=== PATIENT | male | born 1960 | race Caucasian/White ===

== ENCOUNTER 2020-05-26 13:42 | Emergency (ER) | payer MEDICARE, MEDICAID, SELFPAY ==
--- NOTE | 2020-05-26 13:46 | ECG_ITS ---
Test Reason : STROKE SYMPTOMS Blood Pressure : / mmHG Vent. Rate : 061 BPM Atrial Rate : 061 BPM P-R Int : 130 ms QRS Dur : 088 ms QT Int : 448 ms P-R-T Axes : -22 045 158 degrees QTc Int : 450 ms Normal sinus rhythm Left ventricular hypertrophy with repolarization abnormality Abnormal ECG When compared with ECG of 16-FEB-2014 20:47, T wave inversion more evident in Anterior leads Referred By: Landry Rogers Electronically Signed By:SUKI GORDON MD
--- NOTE | 2020-05-26 13:46 | CT_ITS ---
EXAMINATION: CT HEAD WITHOUT CONTRAST (STROKE PROTOCOL) CLINICAL INFORMATION: Stroke protocol. Slurred speech and dizziness COMPARISON: None TECHNIQUE: Contiguous axial imaging was performed from the skull base to vertex without intravenous administration of contrast. This CT examination was performed using dose optimization techniques as appropriate, variously including the following: *Automated exposure control *Adjustment of mA and/or kV according to patient size (this includes techniques or standardized protocols for targeted exams where dose is matched to indication/reason for exam; i.e. extremities or head) *Use of iterative reconstruction technique DLP: 864 mGy-cm FINDINGS: There is no intracranial hemorrhage, hematoma, or extra-axial fluid collection. The ventricles are normal in size. There is no hydrocephalus, edema, or mass effect. The alvarado-white matter differentiation appears symmetric. There is no acute infarct or mass lesion. Normal parenchymal attenuation. The calvarium appears intact. There is no pneumocephalus or orbital emphysema. Mild ethmoid mucosal thickening. There are no air-fluid levels. 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 CT/CT head for stroke IMPRESSION: No acute intracranial pathology. Consider further imaging as clinically indicated. This critical result was discussed with Landry Rogers MD by telephone at 05/26/2020 2:00 PM and it was ascertained that the content and urgency of the report was understood at the time of direct communication.
--- NOTE | 2020-05-26 13:50 | ED_ITS ---
HPI - Neuro Symptoms/Deficit General Chief Complaint: Stroke Stated Complaint: slurred speech,weakness Time Seen by Provider: 05/26/20 13:45 Source: patient Mode of arrival: EMS Limitations: no limitations History of Present Illness HPI Narrative: intermittent slurred speech for 45 minutes. Patient states that he had stuttering symptoms for past few days now more permanent. States that he has had similar dizziness and slurred speech over the past 20 years. Related Data Allergies Allergy/AdvReac Type Severity Reaction Status Date / Time No Known Allergies Allergy Unverified 04/02/20 16:01 [No Known Allergies*] Review of Systems Constitutional: Constitutional: Reports no additional constitutional complaints Eyes: Eyes: Reports no additional eye complaints ENT: Reports dizziness Cardiovascular: Cardiovascular: Reports no additional cardiovascular complaints Respiratory: Respiratory: Reports as per HPI Gastrointestinal: Gastrointestinal: Reports no additional gastrointestinal complaints Musculoskeletal: Musculoskeletal: Reports no additional musculoskeletal compl aints Integumentary/Breasts: Skin/Breast: Denies rash Neurologic: Reports system reviewed and no additional complaints, except as documented, Reports dizziness and Denies Sensory deficit (Neuro) Psychiatric: Psychiatric: Denies anxiety [facility] Social History Social History Alcohol intake: never Smoking Status: Current every day smoker Use of substances other than those prescribed or required for medical reasons: No Advance Directives: No Advance Directives Information Provided: No Physical Exam Vital Signs: Vital Signs: Last Vital Signs Temp 97.9 F 05/26/20 13:57 Pulse 68 05/26/20 13:57 Resp 17 05/26/20 13:57 BP 142/77 H 05/26/20 13:57 Pulse Ox 94 05/26/20 13:57 Body Mass Index 34.7 Const: Nutritional Appearance: overweight Orientation/consciousness: oriented to person and patient oriented x3 Limitations: no limitations HENMT: Head: Yes normal to inspection Ears: external ears normal General nose exam: Normal external nose present Mouth: Normal oral and palatal mucosa present and oropharynx normal Throat: Yes posterior oropharynx normal Eyes: General: appearance normal, both eyes and all related structures Neck: Other: supple Neck: Yes normal visual inspection Chest: Chest palpation & inspection: normal inspection of the chest Resp: Auscultation: clear to auscultation bilaterally Cardio: Jugular venous distension: no JVD Rate: regular rate Rhythm: regular rhythm Heart sounds: S1 normal heart sound present and S2 normal heart sound present GI: Inspection: Yes normal to inspection Palpation (GI): Soft to palpation, nontender and No hepatosplenomegaly present Auscultation: normal bowel sounds : General: Yes no CVA tenderness Back/Spine/Pelvis: Back: no CVA tenderness Skin: General skin exam: no rashes or lesions noted Neuro: Other: patient with bilateral nystagmus General: oriented to person and patient oriented x3 Cranial nerves: Yes CN's II-XII intact bilaterally Motor exam (neuro): 5/5 motor strength present throughout Sensory Exam: No Sensory deficit (Neuro) Extrem: General: Yes normal to inspection Psych: Appearance: grossly normal Course Course Course Narrative: radiology reading is negative Reevaluation(s) Reevaluation #1: Discussed with Dr St who states that he saw this patient in 2011 with the same symptoms, He states that this is not a stroke Reevaluation #2: patient feeling better will dc home Time: 15:48 MDM - Neuro Symptoms/Deficit MDM Narrative Medical decision making narrative: most likely this is seizure not stroke as patient can get these many times a day Differential Diagnosis Differential diagnosis: Likely convulsions, cerebrovascular accident and transient cerebral ischemia Lab Data Result diagrams: 05/26/20 14:18 05/26/20 14:18 Labs: Lab Results 05/26/20 05/26/20 05/26/20 Range/Units 13:55 13:55 14:18 WBC 9.7 (4.8-10.8) X10*3/uL RBC 4.95 (4.60-5.80) X10*6/uL Hgb 15.6 (14.0-18.0) g/dl Hct 46.4 (42-52) % MCV 93.7 (80-98) fL MCH 31.5 (27.0-33.0) pg MCHC 33.6 (31.0-36.0) g/dl RDW 13.2 (11.0-16.0) % Plt Count 206 (160-400) X10*3/uL MPV 11.5 (9.4-12.4) fL Immature Gran % (Auto) 0.6 H (0.0-0.4) % Neut % (Auto) 64.7 (45-73) % Lymph % (Auto) 23.1 (20-40) % [place] % (Auto) 7.2 (2-11) % Eos % (Auto) 3.6 (0-4) % Baso % (Auto) 0.8 (0-2) % Lymph # (Auto) 2.3 (1.2-4.9) X10*3/uL [place] # (Auto) 0.7 (0.1-1.2) X10*3/uL Eos # (Auto) 0.4 (0.0-0.4) X10*3/uL Baso # (Auto) 0.1 (0.0-0.2) X10*3/uL Abs Immat Gran (auto) 0.06 H (0.00-0.03) X10*3/uL Absolute Neuts (auto) 6.3 (2.0-8.3) X10*3/uL Absolute Nucleated RBC 0.000 (0.0-0.012) X10*3/uL Nucleated RBC % (auto) 0.0 (0.0-0.2) /100WBC PT (10.8-13.0) SEC Whole Blood PT 11.5 (11.1-13.5) sec INR (0.9-1.1) Whole Blood INR 1.0 (0.9-1.1) APTT (24.1-38.0) SEC Sodium (135-145) mmol/L Potassium (3.3-5.1) mmol/l Chloride (96-108) mmol/L Carbon Dioxide (22-29) mmol/L Anion Gap (12-20) BUN (9-16) mg/dL Creatinine (0.5-1.4) mg/dL Estim Creat Clear Calc Estimated GFR POC Glucose 120 H (60-115) mg/dL Random Glucose (60-115) mg/dL Calcium (8.4-10.2) mg/dL Total Creatine Kinase (38-174) U/L Troponin I High Sens (<3.5-35.0) ng/L 05/26/20 05/26/20 05/26/20 Range/Units 14:18 14:18 14:18 WBC (4.8-10.8) X10*3/uL RBC (4.60-5.80) X10*6/uL Hgb (14.0-18.0) g/dl Hct (42-52) % MCV (80-98) fL MCH (27.0-33.0) pg MCHC (31.0-36.0) g/dl RDW (11.0-16.0) % Plt Count (160-400) X10*3/uL MPV (9.4-12.4) fL Immature Gran % (Auto) (0.0-0.4) % Neut % (Auto) (45-73) % Lymph % (Auto) (20-40) % [place] % (Auto) (2-11) % Eos % (Auto) (0-4) % Baso % (Auto) (0-2) % Lymph # (Auto) (1.2-4.9) X10*3/uL [place] # (Auto) (0.1-1.2) X10*3/uL Eos # (Auto) (0.0-0.4) X10*3/uL Baso # (Auto) (0.0-0.2) X10*3/uL Abs Immat Gran (auto) (0.00-0.03) X10*3/uL Absolute Neuts (auto) (2.0-8.3) X10*3/uL Absolute Nucleated RBC (0.0-0.012) X10*3/uL Nucleated RBC % (auto) (0.0-0.2) /100WBC PT 10.7 L (10.8-13.0) SEC Whole Blood PT (11.1-13.5) sec INR 0.9 (0.9-1.1) Whole Blood INR (0.9-1.1) APTT 34.4 (24.1-38.0) SEC Sodium 142 (135-145) mmol/L Potassium 4.0 (3.3-5.1) mmol/l Chloride 103 (96-108) mmol/L Carbon Dioxide 31 H (22-29) mmol/L Anion Gap 12 (12-20) BUN 16 (9-16) mg/dL Creatinine 1.00 (0.5-1.4) mg/dL Estim Creat Clear Calc 93.2 Estimated GFR > 60 POC Glucose (60-115) mg/dL Random Glucose 105 (60-115) mg/dL Calcium 9.2 (8.4-10.2) mg/dL Total Creatine Kinase 253 H (38-174) U/L Troponin I High Sens 14.7 (<3.5-35.0) ng/L ECG Data Attestation: I personally reviewed and interpreted this ECG as follows: Interpretation: sinus rate 60 LVH, twave changes with flipped Ts consistent with LVH NIH Stroke Scale Internal: Initial- Upon Arrival Time: 13:53 Level of Consciousness: Alert Level of Consciousness Questions: Answers both questions correctly Level of Consciousness Commands: Performs both tasks correctly Best Gaze: Normal Visual: No visual loss Facial Palsy: Normal Motor Arm (Right): No drift Motor Arm (Left): No drift Motor Leg (Right): No drift Motor Leg (Left): No drift Limb Ataxia: Absent Sensory: Normal Best Language: No aphasia Dysarthia: Mild to moderate dysarthria Extinction and Inattention: No abnormality Score: 1 Discharge Plan Discharge Clinical Impression: Convulsions Qualifiers: Convulsion type: unspecified Qualified Code(s): R56.9 - Unspecified convulsions Patient Disposition: Home, Self-Care Instructions: Epilepsy (ED) Referrals: [facility] [Primary Care Provider] - [address] MD [Physician] - 2 days
[2020-05-26 13:57] VITALS: BP 142/77; BP 150/80; PULSE 68; RESP 17; TEMP 36.6; O2SAT 94; BMI 34.7
[2020-05-26 14:01] LABS: Prothrombin Time Whole Bld POC 11.5 sec (11.1-13.5)
[2020-05-26 14:02] LABS: Glucose, Whole Blood 120 mg/dL (60-115)
[2020-05-26 14:27] LABS: Basophils Absolute Auto 0.1 X10*3/uL (0.0-0.2); Basophils Percent Auto 0.8 % (0-2); Eosinophils Absolute Auto 0.4 X10*3/uL (0.0-0.4); Eosinophils Percent Auto 3.6 % (0-4); Hematocrit 46.4 % (42-52); Hemoglobin 15.6 g/dl (14.0-18.0); Imm Gran Abs Auto 0.06 X10*3/uL (0.00-0.03); Imm Gran Pct Auto 0.6 % (0.0-0.4); Lymphocytes Absolute Auto 2.3 X10*3/uL (1.2-4.9); Lymphocytes Percent Auto 23.1 % (20-40); Mean Corpuscular HGB Conc 33.6 g/dl (31.0-36.0); Mean Corpuscular Hemoglobin 31.5 pg (27.0-33.0); Mean Corpuscular Volume 93.7 fL (80-98); Mean Platelet Volume 11.5 fL (9.4-12.4); Monocytes Absolute Auto 0.7 X10*3/uL (0.1-1.2); Monocytes Percent Auto 7.2 % (2-11); Neutrophils Absolute Auto 6.3 X10*3/uL (2.0-8.3); Neutrophils Percent Auto 64.7 % (45-73); Platelet Count 206 X10*3/uL (160-400); Red Blood Count 4.95 X10*6/uL (4.60-5.80); Red Cell Distribution Width 13.2 % (11.0-16.0); White Blood Count 9.7 X10*3/uL (4.8-10.8)
[2020-05-26 14:29] LABS: MANUAL DIFF FLAG NO
[2020-05-26 14:34] LABS: INTERNATIONAL NORM RATIO 0.9 (0.9-1.1); Prothrombin Time 10.7 SEC (10.8-13.0)
[2020-05-26 14:37] LABS: Partial Thromboplastin Time 34.4 SEC (24.1-38.0)
[2020-05-26 14:38] LABS: Stroke Lab Use COMPLETE
[2020-05-26 14:49] LABS: Anion Gap 12 (12-20); Blood Urea Nitrogen 16 mg/dL (9-16); Calcium 9.2 mg/dL (8.4-10.2); Carbon Dioxide 31 mmol/L (22-29); Chloride 103 mmol/L (96-108); Creatinine Clr Calc Pharmacy 93.2; Estimated Glomerular Filt Rate > 60; Glucose Random 105 mg/dL (60-115); Sodium 142 mmol/L (135-145)
[2020-05-26 14:55] LABS: Troponin-I High Sensitivity 14.7 ng/L (<3.5-35.0)
[2020-05-26 16:08] VITALS: BP 124/68; PULSE 67; RESP 16; O2SAT 94
== END 2020-05-26 16:24 | disposition home or self-care (01) ==
PROVIDERS: Emergency Provider Emergency Medicine
DX: R56.9 Unspecified convulsions (principal); R42 Dizziness and giddiness; R29.701 NIHSS score 1; F17.200 Nicotine dependence, unspecified, uncomplicated; Z71.6 Tobacco abuse counseling
CPT/HCPCS: 36415; 70450; 80048; 82550; 82947; 84484; 85025; 85610; 85730; 93005; 99284

== ENCOUNTER → 2020-08-13 08:29 | Outpatient (BNVA) | payer MEDICARE, MEDICAID, SELFPAY | PROVIDERS: Visit Provider Physician Assistant | DX: Z13.89 Encounter for screening for other disorder (principal) | CPT/HCPCS: Q3014 ==

== ENCOUNTER → 2020-09-02 14:57 | Outpatient (BNVA) | payer MEDICARE, MEDICAID, SELFPAY | PROVIDERS: PCP Internal Medicine; Visit Provider Internal Medicine | DX: J44.9 Chronic obstructive pulmonary disease, unspecified (principal); G47.33 Obstructive sleep apnea (adult) (pediatric); F17.200 Nicotine dependence, unspecified, uncomplicated; Z99.89 Dependence on other enabling machines and devices | CPT/HCPCS: 99202 ==

== ENCOUNTER 2020-09-23 09:03 | Outpatient (REF) | payer MEDICARE, MEDICAID, SELFPAY ==
--- NOTE | ~2020-09-23 | CT_ITS ---
EXAMINATION: CT CHEST SCREENING CLINICAL INFORMATION: No cord independence COMPARISON: CT chest 01/07/2010 TECHNIQUE: Multidetector volumetric CT imaging of the chest is performed without contrast using low dose technique. Additional 2D coronal and sagittal reformatted images and axial 3D maximum intensity projection (MIP) images are generated on the CT workstation. This CT examination was performed using dose optimization techniques as appropriate, variously including the following: *Automated exposure control *Adjustment of mA and/or kV according to patient size (this includes techniques or standardized protocols for targeted exams where dose is matched to indication/reason for exam; i.e. extremities or head) *Use of iterative reconstruction technique DLP: 74 mGy-cm FINDINGS: LUNGS: There is centrilobular emphysematous changes of both lungs. There is a 7 mm nodule right middle lobe on axial image 271/6, 6 mm nodule likely lymph node in the right minor fissure axial image 294/6. No additional nodules seen. MEDIASTINUM: The thyroid lobes are symmetrical and likely enlarged and slightly heterogenous. The central trachea is mildly narrowed in this region of thyroid enlargement. But otherwise the trachea and the bronchi widely patent. Heart size and the great vessels are normal caliber. No pericardial effusion seen. PLEURA: There is no pleural effusion. No pleural mass or thickening. AXILLA: No lymphadenopathy. UPPER ABDOMEN: Visualized liver, spleen, pancreas and adrenal glands unremarkable. The gallbladder has been surgically removed. OSSEOUS STRUCTURES: No lytic or sclerotic process seen. There is a small posterior epidural electrode positioned in the mid thoracic spine. CT/CT lung screening IMPRESSION: Stable pulmonary nodules. The fissural nodule is likely a lymph node. No new nodules seen since 2009. Emphysema without acute process ASSESSMENT: Lung-RADS category 2: Benign RECOMMENDATION: Low dose annual CT.
== END 2020-09-23 09:04 | disposition home or self-care (01) ==
LOC: HO.CT 09:03
PROVIDERS: Visit Provider Physician Assistant Medical
DX: Z12.2 Encounter for screening for malignant neoplasm of respiratory organs (principal); F17.210 Nicotine dependence, cigarettes, uncomplicated
CPT/HCPCS: 71271

== ENCOUNTER 2020-10-01 14:50 | Outpatient (REF) | payer MEDICARE, MEDICAID, SELFPAY ==
--- NOTE | 2020-10-01 17:41 | PFT_ITS ---
Forced vital capacity is normal. FEV1 slightly decreased. [id number] is markedly decreased and MVV is slightly decreased. Post bronchodilator therapy, there is a slight improvement in FEV1 and [id number]. Total lung capacity normal. Residual volume moderately increased. Diffusion capacity moderately decreased. CONCLUSION: Obstructive airway disorder, moderately severe. Very minimal improvement after bronchodilator therapy is noted. MD PHIL Berger/MODL / [id number]
== END 2020-10-01 14:51 | disposition home or self-care (01) ==
LOC: HO.RESP 14:50
PROVIDERS: Visit Provider Internal Medicine
DX: J44.9 Chronic obstructive pulmonary disease, unspecified (principal); F17.200 Nicotine dependence, unspecified, uncomplicated; G47.33 Obstructive sleep apnea (adult) (pediatric); Z79.899 Other long term (current) drug therapy; Z99.89 Dependence on other enabling machines and devices
CPT/HCPCS: 94060; 94727; 94729; 99212

== ENCOUNTER 2021-01-02 13:17 | Emergency (ER) | payer MEDICARE, MEDICAID, SELFPAY | END 2021-01-02 14:03 | disposition left against medical advice (07) | PROVIDERS: Emergency Provider Emergency Medicine; PCP Internal Medicine | DX: R79.89 Other specified abnormal findings of blood chemistry (principal) | CPT/HCPCS: 99281 ==

== ENCOUNTER 2021-01-03 03:13 | Emergency (ER) | payer MEDICARE, MEDICAID, SELFPAY ==
--- NOTE | 2021-01-03 | ECG_ITS ---
Test Reason : LOW POTTASIUM Blood Pressure : / mmHG Vent. Rate : 064 BPM Atrial Rate : 064 BPM P-R Int : 140 ms QRS Dur : 096 ms QT Int : 450 ms P-R-T Axes : 000 050 170 degrees QTc Int : 464 ms Normal sinus rhythm Left ventricular hypertrophy with repolarization abnormality Abnormal ECG When compared with ECG of 26-MAY-2020 13:57, No significant change was found Referred By: Nora Perez Electronically Signed By:AUDELIA ABREU
[2021-01-03 03:33] VITALS: BP 142/75; PULSE 74; RESP 16; TEMP 36.7; O2SAT 95; BMI 31.4
--- NOTE | 2021-01-03 04:16 | ED_ITS ---
HPI - General Adult General Chief complaint: Recheck/Abnormal Lab/Rx Stated complaint: bruised kidney, low potassium Time Seen by Provider: 01/03/21 04:16 Source: patient Mode of arrival: ambulatory History of Present Illness HPI narrative: 60-year-old male with history of diabetes, hypertension, SUNNY and presents with a month of 2-3 episodes of nonbloody diarrhea/fatigue/dizziness/diaphoresis a day but denies any nausea, vomiting, fevers, chills, shortness of breath, chest pain/palpitations. Patient states that he was evaluated by his primary care provider and was called and informed that his lab work showed his potassium was low and that he had a ?bruised kidney?. Related Data Home Medications Medication Instructions Recorded Confirmed aspirin 81 mg tablet,delayed 81 mg PO DAILY 09/02/20 release chlorthalidone 50 mg tablet 50 mg PO DAILY 09/02/20 ergocalciferol (vitamin D2) 1,250 1,250 mcg PO QWEEK 09/02/20 mcg (50,000 unit) capsule fluticasone propionate 220 0 mcg INHALATION 09/02/20 mcg/actuation HFA aerosol inhaler gabapentin 400 mg capsule 400 mg PO TID 09/02/20 hydrochlorothiazide 25 mg tablet 25 mg PO DAILY 09/02/20 ipratropium bromide 17 2 puff PO QID 09/02/20 mcg/actuation HFA aerosol inhaler meloxicam 7.5 mg tablet 7.5 mg PO BID 09/02/20 oxycodone 80 mg tablet,crush 80 mg PO TID 09/02/20 resistant,extended release 12 hr simvastatin 40 mg tablet 40 mg PO BEDTIME 09/02/20 tamsulosin 0.4 mg capsule 0.4 mg PO DAILY 09/02/20 Previous Rx's Medication Instructions Recorded albuterol sulfate 90 mcg/actuation 2 puff INHALATION Q4-6H PRN 30 09/02/20 aerosol inhaler Days #8.5 g nicotine 14 mg/24 hr daily 1 patch TRANSDERMAL DAILY 28 Days 09/02/20 transdermal patch #28 ea fluticasone 250 mcg-salmeterol 50 1 ea PO Q12H #60 cap 11/25/20 mcg/dose blistr powdr for inhalation Allergies Allergy/AdvReac Type Severity Reaction Status Date / Time varenicline [From Lifetime Oy Lifetime Studiostix] AdvReac Intermediate Nausea Verified 09/11/20 13:56 Review of Systems Review of Systems: Pertinent positives and negatives as stated in HPI 10 point review of systems is otherwise negative. [facility] Past Medical History Source: nursing notes reviewed Medical History SUNNY on CPAP Pancreas anomaly, congenital Smoker Umbilical hernia Surgical History History of pancreatic surgery Hx of cholecystectomy Hx of tonsillectomy S/P insertion of spinal cord stimulator Family History Family History Father Cardiac abnormality Mother No problems noted. Social History Social History Household Members: Spouse Alcohol intake: former Cigarette Packs Per Day: 0.5 Cigarettes Per Day: 10 Years Smoked: 50 years Smoked in Last 30 Days: No Advance Directives: No Advance Directives Information Provided: No Current occupational status: disabled Physical Exam Vital Signs: Vital Signs: Last Vital Signs Temp 98.1 F 01/03/21 03:33 Pulse 74 01/03/21 03:33 Resp 16 01/03/21 03:33 BP 142/75 H 01/03/21 03:33 Pulse Ox 95 01/03/21 03:33 Body Mass Index 31.4 VITAL SIGNS: Reviewed. GENERAL: Well developed, well nourished, in no acute distress. HEAD: Normocephalic/atraumatic EYES: PERRLA, EOMI EARS: Ext canals without abnormality OROPHARYNX: no oral lesions noted, posterior pharynx clear NECK: Supple, no adenopathy LUNGS: Normal breath sounds. No adventitious sounds or accessory muscle use. SpO2<95> CARDIOVASCULAR: Regular rate and rhythm without noted murmurs, no JVD or lower extremity edema. ABDOMEN: Obese, Soft, non-tender, non-distended with bowel sounds. SKIN: Inspection of the skin reveals no rashes, ulcerations, jaundice, pallor, or petechiae. NEUROLOGIC: Alert and oriented x 4. Strength and sensation to light touch were grossly intact x 4. Course Course Course Narrative: [age] male with history and clinical presentation of being referred by his primary care provider for potassium levels. On review of all investigations there is a noted mild hypo kalemia without EKG changes or complaints of chest pain/palpitations or muscular cramping. The potassium was repleted with 60 mEq of potassium chloride and the BUN is noted to be elevated and patient received 1 L of IV fluids. Otherwise, the noted leukocytosis appears to be reactive in nature as patient has a benign abdominal exam in the urinalysis is negative. Normal limits and there are no findings to better explain patient's complaints of diaphoresis or diarrhea that he has been experiencing. All results were shared with him and he was discharged home in stable condition to follow-up with his PCP on Monday morning. Medical Decision Making Lab Data Result diagrams: 01/03/21 04:13 01/03/21 04:13 Labs: Lab Results 01/03/21 01/03/21 01/03/21 Range/Units 04:13 04:13 04:15 WBC 12.8 H (4.8-10.8) X10*3/uL RBC 4.83 (4.60-5.80) X10*6/uL Hgb 14.8 (14.0-18.0) g/dl Hct 43.6 (42-52) % MCV 90.3 (80-98) fL MCH 30.6 (27.0-33.0) pg MCHC 33.9 (31.0-36.0) g/dl RDW 13.0 (11.0-16.0) % Plt Count 183 (160-400) X10*3/uL MPV 10.6 (9.4-12.4) fL Immature Gran % (Auto) 0.7 H (0.0-0.4) % Neut % (Auto) 65.0 (45-73) % Lymph % (Auto) 23.7 (20-40) % [place] % (Auto) 7.7 (2-11) % Eos % (Auto) 2.3 (0-4) % Baso % (Auto) 0.6 (0-2) % Lymph # (Auto) 3.0 (1.2-4.9) X10*3/uL [place] # (Auto) 1.0 (0.1-1.2) X10*3/uL Eos # (Auto) 0.3 (0.0-0.4) X10*3/uL Baso # (Auto) 0.1 (0.0-0.2) X10*3/uL Abs Immat Gran (auto) 0.09 H (0.00-0.03) X10*3/uL Absolute Neuts (auto) 8.3 (2.0-8.3) X10*3/uL Absolute Nucleated RBC 0.000 (0.0-0.012) X10*3/uL Nucleated RBC % (auto) 0.0 (0.0-0.2) /100WBC Sodium 142 (135-145) mmol/L Potassium 3.0 L (3.3-5.1) mmol/L Chloride 98 (96-108) mmol/L Carbon Dioxide 33 H (22-29) mmol/L Anion Gap 14 (12-20) BUN 27 H D (9-16) mg/dL Creatinine 1.26 (0.5-1.4) mg/dL Estim Creat Clear Calc 71.8 Estimated GFR 58 POC Glucose 120 H (60-115) mg/dL Random Glucose 116 H (60-115) mg/dL Calcium 10.1 D (8.4-10.2) mg/dL Magnesium 1.8 (1.6-2.6) mg/dL TSH 0.57 (0.32-4.0) uIU/mL Urine Color Urine Appearance Urine pH (5.0-8.0) Ur Specific [place] (1.005-1.025) Urine Protein (NEG-TRACE) MG/DL Urine Glucose (UA) (NEG) MG/DL Urine Ketones (NEG) MG/DL Urine Blood (NEG) Urine Nitrite (NEG) Ur Leukocyte Esterase (NEG) 01/03/21 Range/Units 05:19 WBC (4.8-10.8) X10*3/uL RBC (4.60-5.80) X10*6/uL Hgb (14.0-18.0) g/dl Hct (42-52) % MCV (80-98) fL MCH (27.0-33.0) pg MCHC (31.0-36.0) g/dl RDW (11.0-16.0) % Plt Count (160-400) X10*3/uL MPV (9.4-12.4) fL Immature Gran % (Auto) (0.0-0.4) % Neut % (Auto) (45-73) % Lymph % (Auto) (20-40) % [place] % (Auto) (2-11) % Eos % (Auto) (0-4) % Baso % (Auto) (0-2) % Lymph # (Auto) (1.2-4.9) X10*3/uL [place] # (Auto) (0.1-1.2) X10*3/uL Eos # (Auto) (0.0-0.4) X10*3/uL Baso # (Auto) (0.0-0.2) X10*3/uL Abs Immat Gran (auto) (0.00-0.03) X10*3/uL Absolute Neuts (auto) (2.0-8.3) X10*3/uL Absolute Nucleated RBC (0.0-0.012) X10*3/uL Nucleated RBC % (auto) (0.0-0.2) /100WBC Sodium (135-145) mmol/L Potassium (3.3-5.1) mmol/L Chloride (96-108) mmol/L Carbon Dioxide (22-29) mmol/L Anion Gap (12-20) BUN (9-16) mg/dL Creatinine (0.5-1.4) mg/dL Estim Creat Clear Calc Estimated GFR POC Glucose (60-115) mg/dL Random Glucose (60-115) mg/dL Calcium (8.4-10.2) mg/dL Magnesium (1.6-2.6) mg/dL TSH (0.32-4.0) uIU/mL Urine Color YELLOW Urine Appearance CLEAR Urine pH 6.0 (5.0-8.0) Ur Specific [place] 1.025 (1.005-1.025) Urine Protein NEG (NEG-TRACE) MG/DL Urine Glucose (UA) NEG (NEG) MG/DL Urine Ketones NEG (NEG) MG/DL Urine Blood NEG (NEG) Urine Nitrite NEG (NEG) Ur Leukocyte Esterase NEG (NEG) ECG Data Attestation: I personally reviewed and interpreted this ECG as follows: Prior ECG tracings: available for review (05/26/2020 no acute changes on comparison) Interpretation: Normal sinus rhythm, HR-64, no evidence of acute ischemia, IA/QRS/QTC ears within normal limits. Discharge Plan Discharge Clinical Impression: Hypokalemia, Dehydration, mild Patient Disposition: Home, Self-Care Instructions: Hypokalemia (ED), Dehydration (ED) Additional Instructions: 1. Resume all home medications as prescribed. 2. Please follow-up with your primary care provider on Monday morning to further discuss workup of your diarrhea. Return to the ER for acute worsening of symptoms. Prescriptions: No Action fluticasone propion-salmeterol [Wixela Inhub] 250-50 mcg/dose blister with device 1 ea PO Q12H Qty: 60 RF: 2 Atrovent HFA 17 mcg/actuation HFA aerosol inhaler 2 puff PO QID RF: 0 Flovent HFA 220 mcg/actuation HFA aerosol inhaler 0 mcg inhalation RF: 0 meloxicam 7.5 mg tablet 7.5 mg PO BID RF: 0 chlorthalidone 50 mg tablet 50 mg PO DAILY RF: 0 tamsulosin 0.4 mg capsule 0.4 mg PO DAILY RF: 0 simvastatin 40 mg tablet 40 mg PO BEDTIME RF: 0 ergocalciferol (vitamin D2) 1,250 mcg (50,000 unit) capsule 1,250 mcg PO QWEEK RF: 0 gabapentin 400 mg capsule 400 mg PO TID RF: 0 aspirin 81 mg tablet,delayed release (DR/EC) 81 mg PO DAILY RF: 0 hydrochlorothiazide 25 mg tablet 25 mg PO DAILY RF: 0 oxycodone 80 mg tablet,oral only,ext.rel.12 hr 80 mg PO TID RF: 0 nicotine 14 mg/24 hr patch 24 hour 1 patch transdermal DAILY 28 Days Qty: 28 RF: 2 albuterol sulfate [ProAir HFA] 90 mcg/actuation HFA aerosol inhaler 2 puff inhalation Q4-6H PRN (Reason: shortness of breath or wheezing) 30 Days Qty: 8.5 RF: 2 Referrals: Ciara Garcia MD [Primary Care Provider] - 2 days
[2021-01-03 04:17] LABS: MANUAL DIFF FLAG NO
[2021-01-03 04:18] LABS: Glucose, Whole Blood 120 mg/dL (60-115)
[2021-01-03 04:18] LABS: Basophils Absolute Auto 0.1 X10*3/uL (0.0-0.2); Basophils Percent Auto 0.6 % (0-2); Eosinophils Absolute Auto 0.3 X10*3/uL (0.0-0.4); Eosinophils Percent Auto 2.3 % (0-4); Hematocrit 43.6 % (42-52); Hemoglobin 14.8 g/dl (14.0-18.0); Imm Gran Abs Auto 0.09 X10*3/uL (0.00-0.03); Imm Gran Pct Auto 0.7 % (0.0-0.4); Lymphocytes Percent Auto 23.7 % (20-40); Mean Corpuscular HGB Conc 33.9 g/dl (31.0-36.0); Mean Corpuscular Hemoglobin 30.6 pg (27.0-33.0); Mean Corpuscular Volume 90.3 fL (80-98); Mean Platelet Volume 10.6 fL (9.4-12.4); Monocytes Percent Auto 7.7 % (2-11); Neutrophils Absolute Auto 8.3 X10*3/uL (2.0-8.3); Platelet Count 183 X10*3/uL (160-400); Red Blood Count 4.83 X10*6/uL (4.60-5.80); White Blood Count 12.8 X10*3/uL (4.8-10.8)
[2021-01-03 04:41] LABS: Anion Gap 14 (12-20); Blood Urea Nitrogen 27 mg/dL (9-16); Calcium 10.1 mg/dL (8.4-10.2); Chloride 98 mmol/L (96-108); Creatinine Clr Calc Pharmacy 71.8; Estimated Glomerular Filt Rate 58; Glucose Random 116 mg/dL (60-115); Magnesium 1.8 mg/dL (1.6-2.6); Sodium 142 mmol/L (135-145)
[2021-01-03 04:53] LABS: Carbon Dioxide 33 mmol/L (22-29)
[2021-01-03 05:02] LABS: Thyroid Stimulating Hormone 0.57 uIU/mL (0.32-4.0)
[2021-01-03] MEDS: Potassium Chloride ER 20 MEQ TAB.ER.PRT 60 MEQ PO (05:12)
[2021-01-03] MEDS: 0.9 % Sodium Chloride 1,000 ML 999 ML IV (05:16)
[2021-01-03 05:24] LABS: Glucose Urine UA NEG (NEG); Leukocyte Esterase Urine NEG (NEG); Nitrite Urine NEG (NEG); Specific Gravity - Urine 1.025 (1.005-1.025); Urine Blood NEG (NEG); Urine Ketones NEG (NEG); Urine Protein NEG (NEG-TRACE)
[2021-01-03 05:29] LABS: Appearance Urine CLEAR; Color Urine YELLOW
== END 2021-01-03 06:40 | disposition home or self-care (01) ==
PROVIDERS: Emergency Provider Student in an Organized Health Care Education/Training Program; PCP Internal Medicine
DX: E87.6 Hypokalemia (principal); E86.0 Dehydration; E11.9 Type 2 diabetes mellitus without complications; I10 Essential (primary) hypertension; G47.33 Obstructive sleep apnea (adult) (pediatric); Z79.899 Other long term (current) drug therapy
CPT/HCPCS: 36415; 80048; 81003; 82947; 83735; 84443; 85025; 93005; 96360; 99284

== ENCOUNTER 2021-01-19 11:00 | Outpatient (REF) | payer MEDICARE, MEDICAID, SELFPAY ==
--- NOTE | ~2021-01-19 | CT_ITS ---
EXAMINATION: CT SOFT TISSUE NECK WITH CONTRAST CLINICAL INFORMATION: Localized enlarged lymph node. COMPARISON: None TECHNIQUE: Following the intravenous administration of 60 mL of Omnipaque 350 contrast, helical imaging was performed in the axial plane with generation of coronal and sagittal reformatted images. This CT examination was performed using dose optimization techniques as appropriate, variously including the following: *Automated exposure control *Adjustment of mA and/or kV according to patient size (this includes techniques or standardized protocols for targeted exams where dose is matched to indication/reason for exam; i.e. extremities or head) *Use of iterative reconstruction technique DLP: 251 mGy-cm FINDINGS: No pathologically enlarged cervical lymph nodes are identified. No contour abnormality or pathologic enhancement seen within the oral cavity, pharyngeal mucosal space, or larynx. There is a heterogeneous 2.5 cm nodule posteriorly in the left thyroid lobe. The imaged mediastinum appears normal. There are some secretions adherent to the ty of the trachea at the thoracic inlet. The carotid sheath vasculature opacifies normally with mild atherosclerotic wall calcifications at the bifurcation on the right side. The parotid and submandibular glands are normal. Moderate to severe multilevel cervical spondylosis visible. The paranasal sinuses and mastoid air cells are well aerated. No acute osseous abnormality is seen. Moderate emphysematous changes visible in the lungs, which are otherwise clear. The imaged portions of the brain demonstrate no acute abnormality. CT/CT soft tissue neck w con IMPRESSION: No suspicious soft tissue enhancement or cervical adenopathy. No acute findings. Heterogeneous 2.5 cm left thyroid lobe nodule could be assessed with follow-up sonography. Moderate to severe multilevel cervical spondylosis.
[2021-01-19] MEDS: iohexoL 350 MG/ML 100 ML INFUS..BTL 60 ML IV (11:36)
== END 2021-01-19 11:01 | disposition home or self-care (01) ==
LOC: HO.CT 11:00
PROVIDERS: Visit Provider Family Medicine
DX: R59.0 Localized enlarged lymph nodes (principal)
CPT/HCPCS: 70491; Q9967

== ENCOUNTER → 2021-02-04 10:24 | Outpatient (BNVA) | payer MEDICARE, MEDICAID, SELFPAY | PROVIDERS: PCP Internal Medicine; Visit Provider Internal Medicine | DX: J44.9 Chronic obstructive pulmonary disease, unspecified (principal); G47.33 Obstructive sleep apnea (adult) (pediatric); F17.200 Nicotine dependence, unspecified, uncomplicated; Z99.89 Dependence on other enabling machines and devices; Z79.899 Other long term (current) drug therapy; Z71.6 Tobacco abuse counseling | CPT/HCPCS: 99212 ==

== ENCOUNTER → 2021-02-16 09:40 | Outpatient (BNVA) | payer MEDICARE, MEDICAID, SELFPAY | PROVIDERS: PCP Internal Medicine; Visit Provider Urology | DX: N40.1 Benign prostatic hyperplasia with lower urinary tract symptoms (principal); R33.9 Retention of urine, unspecified; R39.15 Urgency of urination | CPT/HCPCS: 99202 ==

== ENCOUNTER 2021-02-17 13:27 | Outpatient (REF) | payer MEDICARE, MEDICAID, SELFPAY ==
--- NOTE | ~2021-02-17 | CT_ITS ---
EXAMINATION: CT ABDOMEN AND PELVIS WITH CONTRAST CLINICAL INFORMATION: Flushing, generalized hyperhidrosis. COMPARISON: None. TECHNIQUE: Multidetector volumetric images were obtained from the superior aspect of the liver through the pubic symphysis following administration 85 mL of Omnipaque 350 intravenous contrast. Sagittal and coronal reformatted images were obtained on the technologist's workstation. Oral contrast: No This CT examination was performed using dose optimization techniques as appropriate, variously including the following: *Automated exposure control *Adjustment of mA and/or kV according to patient size (this includes techniques or standardized protocols for targeted exams where dose is matched to indication/reason for exam; i.e. extremities or head) *Use of iterative reconstruction technique DLP: 581 mGy-cm. FINDINGS: LUNG BASES: The heart size is normal. There is minimal atelectatic changes in the lingula. LIVER, GALLBLADDER, AND BILIARY TREE: The liver is normal in size, shape, and attenuation. No focal hepatic lesion or biliary ductal dilatation is present. There is a 6 mm hypodensity in the posterior segment right hepatic lobe probable cysts. The gallbladder has been surgically removed. PANCREAS: Unremarkable. SPLEEN: The spleen is normal size. There is a 1.4 cm accessory splenule at the hilum.. ADRENAL GLANDS: Unremarkable. KIDNEYS AND URETERS: The kidneys are normal in size, shape, and attenuation. No hydronephrosis, hydroureter, or calculi seen. No perinephric stranding. There is a 1.5 cm cyst lower pole right kidney. BLADDER: Unremarkable. GASTROINTESTINAL TRACT: There is scattered stool and gas seen throughout the colon without significant distention. The small bowel loops are normal caliber. The stomach is nondistended and appears unremarkable. The appendix is normal caliber. ABDOMINAL WALL: No significant hernia is appreciated. LYMPH NODES: Normal. VASCULAR: Unremarkable. PELVIC VISCERA: The prostate gland is mildly enlarged. OSSEOUS STRUCTURES: There are degenerative disc changes L4-L5, L5-S1 disc levels with ventral and posterior spondylosis. No lytic or sclerotic process seen. CT/CT abdomen pelvis w con IMPRESSION: No acute intra-abdominal process seen. Mild constipation. Small cyst lower pole right kidney gallbladder has been surgically removed. Minimal prostate enlargement. Left lingular atelectasis.
[2021-02-17] MEDS: Barium Sulfate Oral (Berry) 450 ML ORAL.SUSP 900 ML PO (15:49)
[2021-02-17] MEDS: iohexoL 350 MG/ML 100 ML INFUS..BTL IV (15:50)
== END 2021-02-17 13:28 | disposition home or self-care (01) ==
LOC: HO.CT 13:27
PROVIDERS: PCP Internal Medicine; Visit Provider Internal Medicine
DX: R23.2 Flushing (principal); R61 Generalized hyperhidrosis
CPT/HCPCS: 74177; Q9967

== ENCOUNTER → 2021-03-09 08:52 | Outpatient (BNVA) | payer MEDICARE, MEDICAID, SELFPAY | PROVIDERS: PCP Internal Medicine; Visit Provider Psychiatry & Neurology Neurology | DX: G47.31 Primary central sleep apnea (principal); R06.89 Other abnormalities of breathing | CPT/HCPCS: 99202 ==

== ENCOUNTER 2021-04-07 13:51 | Emergency (ER) | payer MEDICARE, MEDICAID, SELFPAY ==
--- NOTE | 2021-04-07 | ECG_ITS ---
Test Reason : CP Blood Pressure : / mmHG Vent. Rate : 063 BPM Atrial Rate : 063 BPM P-R Int : 136 ms QRS Dur : 086 ms QT Int : 444 ms P-R-T Axes : -21 043 143 degrees QTc Int : 454 ms Normal sinus rhythm Left ventricular hypertrophy with repolarization abnormality Abnormal ECG When compared with ECG of 03-JAN-2021 04:13, No significant change was found Referred By: Generic ED Physician Electronically Signed By:DAINA WILLSON
[2021-04-07 13:55] VITALS: BP 120/69; PULSE 63; RESP 16; TEMP 36.9; O2SAT 98; BMI 32.5
== END 2021-04-07 20:07 | disposition left against medical advice (07) ==
PROVIDERS: Emergency Provider Emergency Medicine; PCP Internal Medicine
DX: R07.9 Chest pain, unspecified (principal)
CPT/HCPCS: 93005; 99282; 99283

== ENCOUNTER → 2021-04-25 19:17 | Outpatient (REF) | payer MEDICARE, MEDICAID, SELFPAY | LOC: HO.SL 19:17 | PROVIDERS: Visit Provider Psychiatry & Neurology Neurology | DX: G47.33 Obstructive sleep apnea (adult) (pediatric) (principal); R06.89 Other abnormalities of breathing | CPT/HCPCS: 95811 ==

== ENCOUNTER → 2021-05-04 08:33 | Outpatient (BNVA) | payer MEDICARE, MEDICAID, SELFPAY | PROVIDERS: PCP Internal Medicine; Visit Provider Internal Medicine Gastroenterology | DX: Z01.818 Encounter for other preprocedural examination (principal) | CPT/HCPCS: Q3014 ==

== ENCOUNTER → 2021-05-12 09:16 | Outpatient (BNVA) | payer MEDICARE, MEDICAID, SELFPAY | PROVIDERS: PCP Internal Medicine; Visit Provider Urology | DX: N40.1 Benign prostatic hyperplasia with lower urinary tract symptoms (principal); R35.1 Nocturia | CPT/HCPCS: 51798; 99212 ==

== ENCOUNTER 2021-05-25 11:04 | Outpatient (REF) | payer MEDICARE, MEDICAID, SELFPAY ==
--- NOTE | ~2021-05-25 | XR_ITS ---
EXAMINATION: XR CERVICAL SPINE CLINICAL INFORMATION: Cervicalgia. COMPARISON: CT neck from 01/19/2021. TECHNIQUE: Cervical spine, 5 views FINDINGS: The craniocervical junction is normal. The dens and atlantodental articulation are intact. The cervical vertebra have normal height. Alignment is normal. No fracture, subluxation or prevertebral soft tissue swelling. There is multilevel facet arthropathy, worst on the left at C2-C3, C3-C4 and C4-C5. Multilevel degenerative disc disease (as manifest by loss of disc height, endplate sclerosis and/or osteophytosis). Also, there is multilevel uncovertebral joint hypertrophy with neural foraminal stenosis. The neural foraminal narrowing is moderate to severe on the left at C3-C4, C4-C5 and C5-C6 and on the right at C4-C5 and C5-C6. The visualized lung apices are normal. XR/XR cervical spine 4V IMPRESSION: * No new findings in the spine compared to 01/19/2021. * No fracture or malalignment of the degenerated cervical spine. * Multilevel degenerative disc disease, uncovertebral joint hypertrophy and multilevel neural foraminal stenosis.
== END 2021-05-25 11:05 | disposition home or self-care (01) ==
LOC: HO.XRAY 11:04
PROVIDERS: PCP Internal Medicine; Referring Provider Internal Medicine; Visit Provider Psychiatry & Neurology Neurology
DX: M54.2 Cervicalgia (principal); R06.89 Other abnormalities of breathing; G47.31 Primary central sleep apnea
CPT/HCPCS: 72050; Q3014

== ENCOUNTER 2021-06-03 09:55 | Outpatient (REF) | payer MEDICARE, MEDICAID, SELFPAY ==
--- NOTE | ~2021-06-03 | XR_ITS ---
EXAMINATION: XR LUMBOSACRAL SPINE CLINICAL INFORMATION: Lumbago and sciatica COMPARISON: Images of the spine on the 02/17/2021 CT scan TECHNIQUE: Frontal and 3 lateral views of the lumbosacral spine. FINDINGS: There are 5 nonrib-bearing lumbar-type vertebra. Bones are normal anatomic alignment with no acute fracture or spondylolisthesis. Vertebral body heights are preserved. Degenerative changes are present with loss of disc height and osteophyte formation more so at L4/L5 and L5/S1. Spinal stimulation device is noted with the superior aspect of the leads are not included on the lumbar spine film. Surgical clips in the right upper quadrant likely from prior cholecystectomy. XR/XR lumbar spine 2-3V IMPRESSION: Multilevel degenerative changes as described.
== END 2021-06-03 09:56 | disposition home or self-care (01) ==
LOC: HO.XRAY 09:55
PROVIDERS: Absent Provider Internal Medicine; PCP Internal Medicine; Visit Provider Family Medicine
DX: M54.41 Lumbago with sciatica, right side (principal); M54.42 Lumbago with sciatica, left side
CPT/HCPCS: 72100

== ENCOUNTER → 2021-06-30 14:08 | Outpatient (REF) | payer MEDICARE, MEDICAID, SELFPAY ==
--- NOTE | 2021-06-30 14:10 | CA_ITS ---
Transthoracic Echocardiogram Patient (Last, First, Middle): Efraín Bravo S Gender: Male Date of : 1960 Age: 60 Procedure Date: 06/30/2021 Procedure Type: Transthoracic Echocardiogram Location: OP Height: 177.8 cm Weight: 99.79 kg BSA: 2.17 m2 Heart Rate: bpm BP: 109 / 66 mmHg Forensic Document Examiner: YULI Referring MD: Ramona Carlson MD Wool Merchant: Angel Peralta MD Symptoms: G47.31 - Primary central sleep apnea Study Quality: Fair ECG Rhythm: Sinus Conclusions: - Hyperdynamic LV systolic function, otherwise normal study Findings Left Ventricle Normal left ventricular cavity size. There is normal left ventricular wall thickness. The left ventricular systolic function is hyperdynamic. The visually estimated ejection fraction is >70%. Spectral Doppler is indicative of a normal filling pattern. Right Ventricle Normal right ventricular cavity size and systolic function. Atria The left atrium is likely dilated. There is no evidence of interatrial shunt. The right atrium is normal in size. Aortic Valve The aortic valve was not well visualized. There is no aortic valve stenosis. There is no aortic valve regurgitation. Mitral Valve Likely normal mitral valve structure and function. There is trace mitral valve regurgitation. There is no mitral valve stenosis. Pulmonic Valve The pulmonic valve was not well visualized. Tricuspid Valve Likely normal tricuspid valve structure and function. There is trace tricuspid valve regurgitation. The right ventricular systolic pressure is normal. The right ventricular systolic pressure is 31 mmHg. Normal right atrial pressure. There is no evidence of pulmonary hypertension. Great Vessels All visible segments of the aorta are normal in size. The pulmonary artery was not well visualized. Venous The inferior vena cava is normal in size and collapses greater than 50% with inspiration. Pericardium/Pleural There is no evidence of pericardial effusion. Prior Study Comparison No prior study available for comparison. Measurements 2D Linear Measurements IVSd: 1.03 0.6-0.9/0.6-1.0 cm LVIDd: 5.48 3.9-5.3/4.2-5.9 cm LVIDd Index: 2.53 2.4-3.2/2.2-3.1 cm/m2 LVIDs: 3.17 2.0-3.6 cm LVPWd: 1.16 0.7-1.1 cm LA Diam: 3.90 2.7-3.8/3.0-4.0 cm LAIDs Index: 1.80 1.5-2.3 cm/m2 LV Mass: 298.12 67-162/88-224 g LV Mass Index: 137.38 43-95/49-115 g/m2 LVOT Diam: 2.40 3.0+(-)1.3 cm 2D Systolic Function EF 4C: 72.80 >55% EF 2C: 77.10 >55% EF BiP: 75.30 >55% Mitral Valve MV Pk E: 0.62 MV PK A: 0.45 MV Decel Time: 160.00 E/A: 1.40 E'Lateral: 8.05 E'Medial: 5.55 E/E' Med: 11.20 E/E' Lat: 7.70 PHT: 47.00 MVA PHT: 4.68 Decel [place]: 3.89 Aortic Valve AoV Pk Gerson: 1.67 AoV Pk Grad: 11.00 LVOT LVOT Pk Gerson: 1.19 LVOT Mn Gerson: 0.79 LVOT VTI: 0.25 LVOT Pk Grad: 6.00 LVOT Mn Grad: 3.00 LVOT Diam: 2.40 LVOT Area: 4.52 Diastolic Function MV Pk E: 0.62 MV Pk A: 0.45 E/A: 1.40 E'Medial: 5.55 E/E' Med: 11.20 E' Laterial: 8.05 E/E' Lat: 7.70 Right Ventricle TAPSE (mm): 2.62 Tricuspid Valve TR Pk Gerson: 2.64 TR Pk Grad: 28.00 RA Press: 3.00 RVSP: 31.00 Updated in Other Vendor System with Status of Final Angel Peralta MD electronically signed on 07/01/2021 4:33:34 PM with status of Final
== END ==
LOC: HO.CARD 14:08
PROVIDERS: PCP Family Medicine; Visit Provider Psychiatry & Neurology Neurology
DX: J44.9 Chronic obstructive pulmonary disease, unspecified (principal); G47.31 Primary central sleep apnea
CPT/HCPCS: 93306

== ENCOUNTER → 2021-07-05 14:47 | Outpatient (BNVA) | payer MEDICARE, MEDICAID, SELFPAY | PROVIDERS: PCP Family Medicine; Visit Provider Internal Medicine | DX: J44.9 Chronic obstructive pulmonary disease, unspecified (principal); G47.30 Sleep apnea, unspecified; F17.200 Nicotine dependence, unspecified, uncomplicated | CPT/HCPCS: 99212 ==

== ENCOUNTER → 2021-07-29 12:53 | Outpatient (BNVA) | payer MEDICARE, MEDICAID, SELFPAY | PROVIDERS: PCP Family Medicine; Visit Provider Internal Medicine | DX: M54.12 Radiculopathy, cervical region (principal); R20.0 Anesthesia of skin | CPT/HCPCS: 99202 ==

== ENCOUNTER → 2021-08-05 19:19 | Outpatient (REF) | payer MEDICARE, MEDICAID, SELFPAY | LOC: HO.SL 19:19 | PROVIDERS: Visit Provider Psychiatry & Neurology Neurology | DX: G47.33 Obstructive sleep apnea (adult) (pediatric) (principal); R06.89 Other abnormalities of breathing | CPT/HCPCS: 95811 ==

== ENCOUNTER → 2021-08-10 07:47 | Outpatient (BNVA) | payer MEDICARE, MEDICAID, SELFPAY | PROVIDERS: PCP Family Medicine; Referring Provider Family Medicine; Visit Provider Psychiatry & Neurology Neurology | DX: G47.31 Primary central sleep apnea (principal); R06.89 Other abnormalities of breathing | CPT/HCPCS: 99212 ==

== ENCOUNTER 2021-08-26 10:44 | Outpatient (REF) | payer MEDICARE, MEDICAID, SELFPAY ==
--- NOTE | ~2021-08-26 | CT_ITS ---
EXAMINATION: CT HEAD WITHOUT CONTRAST CLINICAL INFORMATION: Concussion and loss of consciousness COMPARISON: Previous head CT most recent May 2020 TECHNIQUE: Contiguous axial imaging was performed from the skull base to vertex without intravenous administration of contrast. This CT examination was performed using dose optimization techniques as appropriate, variously including the following: *Automated exposure control *Adjustment of mA and/or kV according to patient size (this includes techniques or standardized protocols for targeted exams where dose is matched to indication/reason for exam; i.e. extremities or head) *Use of iterative reconstruction technique DLP: 897 mGy-cm FINDINGS: There is no evidence of acute intracranial hemorrhage or territorial infarction. No abnormal mass effect or midline shift is seen. Ver[place]go to white matter differentiation is well preserved. No extra-axial fluid collections are identified. The ventricles are normal in size. There is no abnormal attenuation within the brain parenchyma. The osseous structures and soft tissues are normal. The mastoid air cells and visualized portions of the paranasal sinuses are well aerated. CT/CT head/brain wo con IMPRESSION: No acute intracranial pathology.
== END 2021-08-26 10:45 | disposition home or self-care (01) ==
LOC: HO.CT 10:44
PROVIDERS: Visit Provider Internal Medicine
DX: S06.0X1A Concussion with loss of consciousness of 30 minutes or less, initial encounter (principal)
CPT/HCPCS: 70450

== ENCOUNTER 2021-09-16 09:56 | Outpatient (REF) | payer MEDICARE, MEDICAID, SELFPAY ==
--- NOTE | 2021-09-16 10:01 | EMG_ITS ---
Right median and ulnar motor and sensory studies were performed. Right radial sensory study was performed and paraspinal muscles were tested. IMPRESSION: 1. [id number] right median neuropathy across carpal tunnel. 2. Mild right ulnar neuropathy across cubital tunnel. MD JAZZY Adan/HENNA / [id number]
== END 2021-09-16 09:57 | disposition home or self-care (01) ==
LOC: HO.NEURO 09:56
PROVIDERS: Visit Provider Internal Medicine
DX: R20.0 Anesthesia of skin (principal); M54.12 Radiculopathy, cervical region
CPT/HCPCS: 95886; 95909

== ENCOUNTER 2021-09-23 11:45 | Outpatient (REF) | payer MEDICARE, MEDICAID, SELFPAY ==
[2021-09-23 12:01] LABS: MANUAL DIFF FLAG NO
[2021-09-23 12:37] LABS: Basophils Absolute Auto 0.1 X10*3/uL (0.0-0.2); Basophils Percent Auto 0.7 % (0-2); Eosinophils Absolute Auto 0.5 X10*3/uL (0.0-0.4); Eosinophils Percent Auto 3.3 % (0-4); Hematocrit 46.5 % (42.0-52.0); Hemoglobin 15.1 g/dl (14.0-18.0); Imm Gran Abs Auto 0.08 X10*3/uL (0.00-0.03); Imm Gran Pct Auto 0.6 % (0.0-0.4); Lymphocytes Absolute Auto 3.3 X10*3/uL (1.2-4.9); Lymphocytes Percent Auto 24.1 % (20-40); Mean Corpuscular HGB Conc 32.5 g/dl (31.0-36.0); Mean Corpuscular Hemoglobin 30.7 pg (27.0-33.0); Mean Corpuscular Volume 94.5 fL (80.0-98.0); Mean Platelet Volume 11.6 fL (9.4-12.4); Monocytes Absolute Auto 0.9 X10*3/uL (0.1-1.2); Monocytes Percent Auto 6.3 % (2-11); Neutrophils Absolute Auto 8.9 x10*3/uL (2.0-8.3); Platelet Count 198 X10*3/uL (160-400); Red Blood Count 4.92 X10*6/uL (4.60-5.80); Red Cell Distribution Width 13.2 % (11.0-16.0); White Blood Count 13.8 X10*3/uL (4.8-10.8)
[2021-09-23 12:58] LABS: Anion Gap 11 (12-20); Blood Urea Nitrogen 17 mg/dL (9-16); Calcium 9.8 mg/dL (8.4-10.2); Carbon Dioxide 29 mmol/L (22-29); Chloride 105 mmol/L (96-108); Estimated Glomerular Filt Rate > 60; Glucose Random 131 mg/dL (60-115); Potassium 4.1 mmol/L (3.3-5.1); Sodium 141 mmol/L (135-145)
== END 2021-09-23 11:46 | disposition home or self-care (01) ==
LOC: HO.LAB 11:45
PROVIDERS: Absent Provider Internal Medicine; PCP Internal Medicine; Visit Provider Internal Medicine
DX: Z01.818 Encounter for other preprocedural examination (principal)
CPT/HCPCS: 36415; 80048; 85025

== ENCOUNTER → 2021-11-02 15:21 | Outpatient (BNVA) | payer MEDICARE, MEDICAID, SELFPAY | PROVIDERS: PCP Internal Medicine; Visit Provider Internal Medicine | DX: J44.9 Chronic obstructive pulmonary disease, unspecified (principal); G47.31 Primary central sleep apnea; F17.210 Nicotine dependence, cigarettes, uncomplicated | CPT/HCPCS: 99212 ==

== ENCOUNTER 2021-11-16 13:16 | Outpatient (REF) | payer MEDICARE, MEDICAID, SELFPAY ==
--- NOTE | ~2021-11-16 | MR_ITS ---
EXAMINATION: MR CERVICAL SPINE WITHOUT CONTRAST CLINICAL INFORMATION: Radiculopathy cervical region. COMPARISON: Plain films of the cervical spine 05/25/2021. CT scan of the neck 01/19/2021. TECHNIQUE: MRI of the cervical spine was obtained using routine sequences without contrast. FINDINGS: VERTEBRAL BODIES AND PARASPINAL SOFT TISSUES: There is anatomic alignment of the vertebral bodies. There is marked narrowing of intervertebral disc height at multiple levels between C3-C4 and C7-T1. There are multilevel degenerative endplate contour changes with extensive edematous signal at C3-C4. Fatty endplate signal changes are seen at multiple 1 levels. Vertebral body heights are maintained. No fractures are demonstrated. Overall, marrow signal is slightly heterogenous. There is a 2.5 cm heterogenous nodule in the left lobe of the thyroid gland toward lower pole, demonstrated on prior imaging. CERVICOMEDULLARY JUNCTION AND VISUALIZED POSTERIOR FOSSA: The craniocervical and posterior fossa structures are normal. There is mild increased signal in the spinal cord at the level of C3-C4, consistent with edema or myelomalacia centrally and toward the right. SPINAL LEVELS: C2-C3: There is severe left facet arthropathy. The posterior disc contour appears normal and there is no cord compression or central stenosis. There is moderate left foraminal narrowing. C3-C4: There is severe left facet arthropathy. There is a broad-based posterior disc protrusion which compresses the thecal sac and effaces CSF around the cord. There is compression of the cord and there is moderate to severe central stenosis. There are uncovertebral osteophytes bilaterally and there is severe bilateral foraminal narrowing. C4-C5: The facet joints appear normal. There is a posterior disc osteophyte complex which effaces CSF ventral to the spinal cord with mild flattening of the cord, and there is mild to moderate central stenosis. There are uncovertebral osteophytes and there is severe bilateral foraminal narrowing. C5-C6: The facet joints appear normal. There is a posterior disc protrusion which is slightly more prominent on the left with effacement of CSF ventral to the cord. There is no cord compression or central stenosis. There are uncovertebral osteophytes and there is moderate to severe bilateral foraminal narrowing. C6-C7: The facet joints appear normal. There is a broad-based posterior disc protrusion with mild distortion of the ventral thecal sac but there is no cord compression or central stenosis. There are uncovertebral osteophytes and there is moderate bilateral foraminal narrowing. C7-T1: There is mild bilateral facet arthropathy. There is a small posterior disc protrusion without significant mass effect on the thecal sac and there is no cord compression or central stenosis. There are uncovertebral osteophytes bilaterally and there is moderate to severe bilateral foraminal narrowing. MR/MR cervical spine wo con IMPRESSION: 1. There is severe spondylosis and left facet arthropathy at C3-C4 with a broad-based posterior disc protrusion. This compresses the thecal sac and cord, and there is moderate to severe central stenosis. Increased signal within the cord at this level may be due to edema or evolving myelomalacia. There is severe bilateral foraminal narrowing. 2. At C4-C5 there is a posterior disc osteophyte complex with mild to moderate central stenosis. There is severe bilateral foraminal narrowing. 3. At C5-C6, C6-C7 and C7-T1 there are posterior disc protrusions without cord compression or central stenosis. There is foraminal narrowing bilaterally at these levels. 4. The study redemonstrates a heterogenous left thyroid mass. This could be further evaluated with thyroid ultrasound if not already performed.
--- NOTE | ~2021-11-16 | XR_ITS ---
EXAMINATION: XR ABDOMEN KUB CLINICAL INDICATION: Pre-MRI foreign body. COMPARISON: None TECHNIQUE: AP view of the abdomen. FINDINGS: There is scattered stool and gas seen in colon. There are surgical marlena in the right upper quadrant from cholecystectomy. There is no organomegaly. There is moderate degenerative bridging osteophyte L5-S1 disc level. No lytic or sclerotic process seen. SI joints are symmetrical and normal. XR/XR abdomen 1V IMPRESSION: No radiopaque foreign body seen in the abdomen. Mild constipation.
== END 2021-11-16 13:17 | disposition home or self-care (01) ==
LOC: HO.MRI 13:16
PROVIDERS: Visit Provider Internal Medicine
DX: Z01.818 Encounter for other preprocedural examination (principal); M54.12 Radiculopathy, cervical region; M79.5 Residual foreign body in soft tissue
CPT/HCPCS: 72141; 74018

== ENCOUNTER → 2022-01-24 10:22 | Outpatient (REF) | payer MEDICARE, MEDICAID, SELFPAY ==
--- NOTE | 2022-01-24 10:25 | CA_ITS ---
Transthoracic Echocardiogram Patient (Last, First, Middle): Efraín Bravo S Gender: Male Date of : 1960 Age: 61 Procedure Date: 01/24/2022 Procedure Type: Transthoracic Echocardiogram Location: OP Height: 177.8 cm Weight: 95.26 kg BSA: 2.13 m2 Heart Rate: bpm BP: 115 / 65 mmHg Plate Corrector: TIFFANI Referring MD: PEG MA MD Paint Tester: Angel Peralta MD Symptoms: R07.9 CHEST PAIN, UNSPECIFIED; R06.02 SHORTNESS OF BREATH Study Quality: Fair ECG Rhythm: Sinus Conclusions: - 1. Normal LV systolic function with pseudonormal filling pattern, apical hypertrophic cannot be ruled out 2. Normal cardiac valvular Doppler 3. Normal RV systolic pressure 4. No pericardial effusion Findings Left Ventricle Normal left ventricular size, thickness, and systolic function. The visually estimated ejection fraction is between 65-70%. Regional wall motion abnormalities can not be excluded due to suboptimal endocardial definition. Spectral Doppler is indicative of a pseudonormal filling pattern. Elevated left ventricular end diastolic pressure. E/E prime ratio is between 8 and 15 consistent with indeterminate filling pressures. Right Ventricle Normal right ventricular cavity size and systolic function. Atria The left atrium is likely dilated. There is lipomatous hypertrophy of the interatrial septum. There is no evidence of interatrial shunt. The right atrium is normal in size. Aortic Valve The aortic valve was not well visualized. There is no aortic valve stenosis. There is no aortic valve regurgitation. Mitral Valve The mitral valve was not well visualized. Likely normal mitral valve structure and function. There is trace mitral valve regurgitation. There is no mitral valve stenosis. Pulmonic Valve The pulmonic valve was not well visualized. Tricuspid Valve Likely normal tricuspid valve structure and function. There is trace tricuspid valve regurgitation. The right ventricular systolic pressure is normal. The right ventricular systolic pressure is 32 mmHg. Normal right atrial pressure. There is no evidence of pulmonary hypertension. Great Vessels All visible segments of the aorta are normal in size. The pulmonary artery was not well visualized. Venous The inferior vena cava is normal in size and collapses greater than 50% with inspiration. Pericardium/Pleural There is no evidence of pericardial effusion. Prior Study Comparison No significant change compared to prior study dated: 06/30/2021. Recommendations, Care & Conclusions Recommend contrast in the future to improve endocardial definition. Measurements 2D Linear Measurements IVSd: 1.08 0.6-0.9/0.6-1.0 cm LVIDd: 5.48 3.9-5.3/4.2-5.9 cm LVIDd Index: 2.57 2.4-3.2/2.2-3.1 cm/m2 LVIDs: 3.55 2.0-3.6 cm LVPWd: 0.99 0.7-1.1 cm LA Diam: 3.70 2.7-3.8/3.0-4.0 cm LAIDs Index: 1.74 1.5-2.3 cm/m2 LV Mass: 276.97 67-162/88-224 g LV Mass Index: 130.03 43-95/49-115 g/m2 LVOT Diam: 2.40 3.0+(-)1.3 cm 2D Systolic Function EF 4C: 68.60 >55% EF 2C: 78.70 >55% Mitral Valve MV Pk E: 0.82 MV PK A: 0.72 MV Decel Time: 211.00 E/A: 1.10 E'Lateral: 7.29 E'Medial: 6.74 E/E' Med: 12.20 E/E' Lat: 11.20 PHT: 62.00 MVA PHT: 3.55 Decel Oldham: 3.87 Aortic Valve AoV Pk Gerson: 1.72 AoV Mn Gerson: 1.09 AoV VTI: 0.39 AoV Pk Grad: 12.00 Aov Mn Grad: 6.00 PHILOMENA Cont.VTI: 3.40 LVOT LVOT Pk Gerson: 1.41 LVOT Mn Gerson: 0.87 LVOT VTI: 0.29 LVOT Pk Grad: 8.00 LVOT Mn Grad: 4.00 LVOT Diam: 2.40 LVOT Area: 4.52 Diastolic Function MV Pk E: 0.82 MV Pk A: 0.72 E/A: 1.10 E'Medial: 6.74 E/E' Med: 12.20 E' Laterial: 7.29 E/E' Lat: 11.20 Right Ventricle TAPSE (mm): 27.70 TVS' Gerson: 15.80 Tricuspid Valve TR Pk Gerson: 2.70 TR Pk Grad: 29.00 RA Press: 3.00 RVSP: 32.00 Great Vessels Aorta Sinus of Valsalva: 3.20 2.0-3.[address] Ridge: 2.73 1.7-3.4 cm Ao Asc: 3.40 2.1-3.4 cm Updated in Other Vendor System with Status of Final Angel Peralta MD electronically signed on 01/25/2022 5:17:16 PM with status of Final
== END ==
LOC: HO.CARD 10:22
PROVIDERS: Visit Provider Nurse Practitioner Family
DX: J44.9 Chronic obstructive pulmonary disease, unspecified (principal); R06.89 Other abnormalities of breathing; G47.31 Primary central sleep apnea
CPT/HCPCS: 93306

== ENCOUNTER → 2022-02-07 15:14 | Outpatient (BNVA) | payer MEDICARE, MEDICAID, SELFPAY | PROVIDERS: PCP Internal Medicine; Visit Provider Internal Medicine | DX: J44.9 Chronic obstructive pulmonary disease, unspecified (principal); G47.30 Sleep apnea, unspecified; F17.210 Nicotine dependence, cigarettes, uncomplicated; Z79.899 Other long term (current) drug therapy | CPT/HCPCS: 99212 ==

== ENCOUNTER 2023-06-05 14:48 | Outpatient (REF) | payer MEDICARE, MEDICAID, SELFPAY ==
[2023-06-05 16:07] LABS: MANUAL DIFF FLAG NO
[2023-06-05 16:23] LABS: Basophils Absolute Auto 0.1 X10*3/uL (0.0-0.2); Basophils Percent Auto 0.6 % (0-2); Eosinophils Absolute Auto 0.3 X10*3/uL (0.0-0.4); Eosinophils Percent Auto 2.5 % (0-4); Hematocrit 47.3 % (42.0-52.0); Hemoglobin 15.5 g/dl (14.0-18.0); Imm Gran Abs Auto 0.05 X10*3/uL (0.00-0.03); Imm Gran Pct Auto 0.4 % (0.0-0.4); Lymphocytes Percent Auto 26.5 % (20-40); Mean Corpuscular HGB Conc 32.8 g/dl (31.0-36.0); Mean Corpuscular Hemoglobin 30.2 pg (27.0-33.0); Mean Platelet Volume 11.6 fL (9.4-12.4); Monocytes Absolute Auto 0.9 X10*3/uL (0.1-1.2); Monocytes Percent Auto 8.2 % (2-11); Neutrophils Absolute Auto 6.9 x10*3/uL (2.0-8.3); Neutrophils Percent Auto 61.8 % (45-73); Platelet Count 197 X10*3/uL (160-400); Red Blood Count 5.14 X10*6/uL (4.60-5.80); Red Cell Distribution Width 12.9 % (11.0-16.0); White Blood Count 11.2 X10*3/uL (4.8-10.8)
[2023-06-05 16:45] LABS: Creatinine Urine 301.05 mg/dL; Microalbum/Creatinine Ratio Ur 82.3 ug/mg cr (<30)
[2023-06-05 16:48] LABS: Alanine Aminotransferase 201 U/L (0-40); Albumin Level 4.4 g/dL (3.5-5.0); Alkaline Phosphatase 174 U/L (39-117); Anion Gap 11 (12-20); Aspartate Amino Transferase 326 U/L (5-37); Bilirubin Direct 0.5 mg/dL (0.0-0.5); Bilirubin Total 1.1 mg/dL (0.0-1.0); Blood Urea Nitrogen 17 mg/dL (9-16); Calcium 9.2 mg/dL (8.4-10.2); Carbon Dioxide 30 mmol/L (22-29); Chloride 103 mmol/L (96-108); Cholesterol 183 mg/dL (<200); Estimated Glomerular Filt Rate 59; Glucose Random 145 mg/dL (60-115); HDL Cholesterol 65 mg/dL (>40); LDL Cholesterol Calculated 95 mg/dL (<100); Potassium 4.1 mmol/L (3.3-5.1); Sodium 140 mmol/L (135-145); Total Protein 6.9 g/dL (6.5-8.0); Triglycerides 116 mg/dL (<150)
[2023-06-07 21:38] LABS: TS Negative Control Passed; TS Panel A 0; TS Panel B 0; TS Positive Control Passed; TSpotTB Negative (Negative)
== END 2023-06-05 14:49 | disposition home or self-care (01) ==
LOC: HO.HHCL 14:48
PROVIDERS: Visit Provider Internal Medicine
DX: Z00.00 Encounter for general adult medical examination without abnormal findings (principal); E11.9 Type 2 diabetes mellitus without complications; Z11.1 Encounter for screening for respiratory tuberculosis; Z20.2 Contact with and (suspected) exposure to infections with a predominantly sexual mode of transmission
CPT/HCPCS: 36415; 80048; 80061; 80076; 82043; 82570; 85025; 86481

== ENCOUNTER 2023-07-14 09:19 | Outpatient (REF) | payer MEDICARE, MEDICAID, SELFPAY | END 2023-07-14 09:20 | disposition home or self-care (01) | LOC: HO.US 09:19 | PROVIDERS: Visit Provider Internal Medicine | DX: R79.89 Other specified abnormal findings of blood chemistry (principal); K76.0 Fatty (change of) liver, not elsewhere classified | CPT/HCPCS: 76705; 76981 ==

== ENCOUNTER 2023-08-25 17:36 | Outpatient (REF) | payer MEDICARE, MEDICAID, SELFPAY | END 2023-08-25 17:37 | disposition home or self-care (01) | LOC: HO.HHCLNP 17:36 | PROVIDERS: Visit Provider Emergency Medicine | DX: R39.9 Unspecified symptoms and signs involving the genitourinary system (principal) | CPT/HCPCS: 87086 ==

== ENCOUNTER 2023-12-19 07:59 | Outpatient (AMB) | payer MEDICARE, MEDICAID, SELFPAY ==
--- NOTE | 2023-12-19 08:03 | MHC.OFFVIS ---
Vital Signs 12/19/23 08:04 Height 5 ft 10 in Weight 230 lb BMI 33.0 BP 105/63 Blood Pressure Location Lt brachial Position Sitting Pulse 96 Intake Visit Reasons: [facility] Intake Note: Patient follow up for JOHN[facility]ON Patient denies any GI issues. Sales Research Analyst Required: No Accompanied by: Self / Same As Patient Allergies marijuana (cannabis) [marijuana] Allergy (Severe, Verified 12/19/23 08:03) Seizure varenicline [From Chantix] Adverse Reaction (Intermediate, Verified 12/19/23 08:03) Nausea HPI Comments Details: 63-year-old male COPD- multiple comorbid illness seen by us back in 2020 for colonoscopy-he has been newly referred with JOHNSTON Reviewed labs back from 05/2023 within referral-AST/ALt- [id number] Last viral serologies were negative back in 2019-no update. He does not know why hes here Reviwed labs/ U/S No eytoh x 35 yrs Tob since age 7- at least 1/2 pk Appetite good Bowels are normal Uses walking stick- back/ hips/ knees arthritis- SOB- wheezes- using inhalers- unsure when sees pulm or pcp He says he does not go to ED if severe- because hes not treated well- he refuses- Severe sleep apnea- he has NO supplies- he reports he has f/u still no supplies- He says hes had 4 colonoscopies- not sure where- or when- awhile ago He has no nausea, vomiting, abdominal pain, hematemesis, hematochezia fever or chills PFSH Medical History Cervical radiculopathy Numbness in both hands SUNNY on CPAP Pancreas anomaly, congenital Smoker Smoker Umbilical hernia Surgical History Hx of tonsillectomy Hx of cholecystectomy History of pancreatic surgery S/P insertion of spinal cord stimulator Family History Father Cardiac abnormality Mother No problems noted. Social History Household Members: Spouse Alcohol intake: former Patient Tobacco Use Status: Current everyday Tobacco user Cigarette Packs Per Day: 0.5 Cigarettes Per Day: 4 Years Smoked: 50 years Current occupational status: disabled Review of Systems Const All systems reviewed & are unremarkable except as noted in HPI and below ENT Reports dizziness Card Denies chest pain, Reports dyspnea and Reports dyspnea on exertion Resp Reports cough, Reports dyspnea, Reports dyspnea on exertion and Reports wheezing GI Denies abdominal pain, Denies heartburn, Denies nausea and Denies vomiting Neuro Reports dizziness Aller/Immun Reports wheezing Physical Exam Vital Signs: Last Vital Signs Pulse 96 12/19/23 08:04 BP 105/63 12/19/23 08:04 BMI result Body Mass Index 33.0 Const General: cooperative, comfortable and no acute distress Orientation/consciousness: patient oriented x3 Limitations: ambulation with cane Eyes Sclerae: sclerae normal Resp Effort & Inspection: normal respiratory effort and able to speak in complete sentences Auscultation: diminished lung sounds Cardio Rate: regular rate Rhythm: regular rhythm Heart sounds: S1 normal heart sound present and S2 normal heart sound present GI Palpation (GI): Soft to palpation and nontender Auscultation: normal bowel sounds Skin General skin exam: no rashes or lesions noted Neuro General: patient oriented x3 Psych Appearance: grossly normal Mental Status: mental status grossly normal Speech and movement: Normal speech and movement present and Clear speech present Affect: normal affect Attitude: cooperative Thought process: Normal thought process present Thought content: Normal thought content present Results Reviewed Results Reviewed: 06/2023 US/US abdomen comp w elastography IMPRESSION: 1. There is generalized increase in hepatic echotexture, consistent with fatty infiltration or hepatocellular disease. Please correlate clinically. Characteristic pericholecystic sparing favors fatty infiltration. No focal hepatic mass or intrahepatic biliary dilatation is seen. 2. Liver elastography: Although measurements appear to rule out compensated advanced chronic liver disease, there is statistical variability of the sampling which decreases accuracy. Assessment & Plan Assessment & Plan (1) Elevated liver enzymes: Comment: Most recent liver enzymes 05/2023 Code(s): R74.8 - Abnormal levels of other serum enzymes Category: Medical Plan: Update labs to include alpha 1 antitrypsin, ASMA AMA ETC (2) Poor historian: Comment: Difficult to assess-limited detail, dates ETC Code(s): Z78.9 - Other specified health status Category: Medical Plan: F/U Dr. Peterson-plan of care (3) SUNNY on CPAP: Comment: KNOWN TO HAVE SLEEP APNEA - he has machine but NO supplies- BEING FOLLOWED BY SLEEP . IN [place]. Code(s): G47.33 - Obstructive sleep apnea (adult) (pediatric); Z99.89 - Dependence on other enabling machines and devices Category: Medical Plan: Reenforce importance of F/U- severe sleep apnea Plan labs PCP/ sleep med No colon report, however for now hold off on colon- needs further evaluation- re resp/ pulm- anesthesia risk Placed referral to see -as he was established Orders: Orders Complete Blood Count Auto Diff Today R74.8 - Abnormal levels of other serum enzymes Comprehensive Met. Panel Today R74.8 - Abnormal levels of other serum enzymes Bilirubin Direct Today R74.8 - Abnormal levels of other serum enzymes, Z78.9 - Other specified health status Mitochondrial Antibody Today R74.01 - Elevation of levels of liver transaminase levels Smooth Muscle Antibody Today R74.8 - Abnormal levels of other serum enzymes Soluble Liver Ag Autoantibody Today R74.8 - Abnormal levels of other serum enzymes Alpha 1 Anti-trypsin Today R74.01 - Elevation of levels of liver transaminase levels CARISSA Reflex Titer and Pattern Today R74.01 - Elevation of levels of liver transaminase levels Hepatitis A,B,C Profile Today R79.89 - Other specified abnormal findings of blood chemistry Thyroid Stimulating Hormone Today R74.8 - Abnormal levels of other serum enzymes Referrals Pulmonology Referral G47.30 - Sleep apnea, unspecified, J40 - Bronchitis, not specified as acute or chronic, J44.9 - Chronic obstructive pulmonary disease, unspecified, J45.909 - Unspecified asthma, uncomplicated Patient Instructions: Difficult to assess, limited detail- Encourage ED with SOB- Follow-up plan of care He will have labs done today to assess for other causes of elevated liver enzymes to include alpha 1 antitrypsin, ASMA ETc He will call PCP for further-following Coding Level of Care Code New Pt Level 4 (75801) Diagnoses Elevated liver enzymes R74.8 Poor historian Z78.9 SUNNY on CPAP G47.33; Z99.89 Time Spent (min) 45
[2023-12-19 08:04] VITALS: BP 105/63; PULSE 96; BMI 33.0
== END 2023-12-19 09:31 | disposition home or self-care (01) ==
PROVIDERS: PCP Internal Medicine; Visit Provider Physician Assistant
DX: R74.8 Abnormal levels of other serum enzymes (principal); Z78.9 Other specified health status; G47.33 Obstructive sleep apnea (adult) (pediatric); Z99.89 Dependence on other enabling machines and devices
CPT/HCPCS: 99204

== ENCOUNTER 2023-12-19 07:59 | Outpatient (REF) | payer MEDICARE, MEDICAID, SELFPAY ==
[2023-12-19 09:18] LABS: MANUAL DIFF FLAG NO
[2023-12-19 09:40] LABS: Basophils Absolute Auto 0.1 X10*3/uL (0.0-0.2); Basophils Percent Auto 0.7 % (0-2); Eosinophils Absolute Auto 0.3 X10*3/uL (0.0-0.4); Hematocrit 46.3 % (42.0-52.0); Hemoglobin 15.3 g/dl (14.0-18.0); Imm Gran Abs Auto 0.05 X10*3/uL (0.00-0.03); Imm Gran Pct Auto 0.5 % (0.0-0.4); Lymphocytes Absolute Auto 2.8 X10*3/uL (1.2-4.9); Lymphocytes Percent Auto 25.1 % (20-40); Mean Corpuscular Hemoglobin 31.2 pg (27.0-33.0); Mean Corpuscular Volume 94.3 fL (80.0-98.0); Mean Platelet Volume 11.1 fL (9.4-12.4); Monocytes Absolute Auto 0.8 X10*3/uL (0.1-1.2); Neutrophils Percent Auto 63.7 % (45-73); Platelet Count 183 X10*3/uL (160-400); Red Blood Count 4.91 X10*6/uL (4.60-5.80); Red Cell Distribution Width 13.1 % (11.0-16.0)
[2023-12-19 10:43] LABS: HBS Num1 48.69 mIU/mL (0-7.99); HBc Num1 0.06 S/CO (0.00-0.79); HBsAGNum1 0.36 S/CO (0.00-0.99); Hepatitis A Antibody IgM 0.12 Index (0-0.79); Hepatitis B Core Antibody Nonreactive (Nonreactive); Hepatitis B Surface Antigen Negative (Negative); ~HepC Num1 0.04 S/CO (0.00-0.79); ~Hepatitis A Antibody IgM Nonreactive (Nonreactive); ~Hepatitis B Surface Antibody REACTIVE (Nonreactive); ~Hepatitis C Antibody Nonreactive (Nonreactive)
[2023-12-19 10:45] LABS: Alanine Aminotransferase 26 U/L (0-40); Albumin Level 4.2 g/dL (3.5-5.0); Alkaline Phosphatase 113 U/L (39-117); Anion Gap 13 (12-20); Aspartate Amino Transferase 31 U/L (5-37); Bilirubin Direct 0.2 mg/dL (0.0-0.5); Bilirubin Total 0.8 mg/dL (0.0-1.0); Blood Urea Nitrogen 19 mg/dL (9-16); Calcium 9.3 mg/dL (8.4-10.2); Carbon Dioxide 26 mmol/L (22-29); Chloride 108 mmol/L (96-108); Estimated Glomerular Filt Rate 57; Glucose Random 105 mg/dL (60-115); Sodium 142 mmol/L (135-145); Total Protein 6.5 g/dL (6.5-8.0)
[2023-12-19 11:02] LABS: Thyroid Stimulating Hormone 0.68 uIU/mL (0.32-4.0)
[2023-12-20 18:43] LABS: Alpha 1 Anti-trypsin 145 mg/dL (83-199)
[2023-12-21 15:09] LABS: Anti Nuclear Antibody Screen NEGATIVE (NEGATIVE)
[2023-12-25 15:12] LABS: Soluble Liver Ag Autoantibody <20.1 U (0.0-20.0)
[2023-12-25 15:58] LABS: Smooth Muscle Antibody <20 U (<20)
[2023-12-26 06:24] LABS: Mitochondrial Antibodies NEGATIVE (NEGATIVE)
== END 2023-12-19 08:00 | disposition home or self-care (01) ==
LOC: HO.LAB 07:59
PROVIDERS: PCP Internal Medicine; Visit Provider Physician Assistant
DX: R74.01 Elevation of levels of liver transaminase levels (principal); E79.89 Other specified disorders of purine and pyrimidine metabolism; R74.8 Abnormal levels of other serum enzymes; Z78.9 Other specified health status; G47.33 Obstructive sleep apnea (adult) (pediatric)
CPT/HCPCS: 36415; 80053; 82103; 82248; 83520; 84443; 85025; 86015; 86038; 86381; 86704; 86706; 86709; 86803; 87340; 99202

== ENCOUNTER → 2024-03-26 10:39 | Outpatient (RCR) | payer MEDICARE, MEDICAID, SELFPAY ==
[2021-04-06 09:55] VITALS: BP 145/63; PULSE 67; RESP 14; TEMP 36.6; O2SAT 95; BMI 35.0
--- NOTE | 2021-04-06 10:00 | PM.HEMONCCN ---
Subjective - Subjective Chief complaint: I sweat all the time Patient: new to practice Consult date: 04/06/21 Primary Care Provider: Ciara Celaya MD HPI - Consult Narrative Reason for consult: Elevated urinary 5 HIAA Narrative: Efraín Bravo Jr is a 60 year old male who is referred for possible carcinoid syndrome. He reports frequent and excessive sweating that has been ongoing for more that 10 years. He says he has loose stools but that is usually associated when he is sweating excessively. He is rather vague about symptoms of diarrhea, it does not appear that he has this every day. He has had several colonoscopies. He certainly is not losing weight from diarrhea. He reports no loss of appetite, chest pain, shortness of breath or wheezing. He has cut back his cigarettes to 4 a day. He reports no nausea or emesis. Review of Systems - Constitutional Reports as per HPI, Reports no additional constitutional complaints - Cardiovascular Reports no additional cardiovascular complaints - Respiratory Reports no additional respiratory complaints - Gastrointestinal Reports no additional gastrointestinal complaints Oncology Screenings - ECOG Performance Status ECOG Performance Status: 1 [facility], [facility] Medical History: Medical History (Last Reviewed 04/06/21 @ 09:58 by Juliana Morris) SUNNY on CPAP Pancreas anomaly, congenital Smoker Umbilical hernia Family History: Family History (Last Reviewed 03/09/21 @ 09:03 by CYNDI Justice) Father Cardiac abnormality Mother No problems noted. Surgical History: Surgical History (Last Reviewed 04/06/21 @ 09:58 by Juliana Morris) History of pancreatic surgery Hx of cholecystectomy Hx of tonsillectomy S/P insertion of spinal cord stimulator Social History: Social History (Last Updated 04/06/21 @ 09:59 by Juliana Morris) Living Situation History: Household Members: Spouse Alcohol History: Alcohol intake: former Alcohol History Details: Alcohol intake frequency: does not drink Tobacco History: Patient Tobacco Use Status: Current everyday Tobacco Years Smoked: 50 years Substance Use History: Use of substances other than those prescribed or required for medical reasons: No Occupation Assessmet: Current occupational status: disabled Home Medications and Allergies Home Medications Medication Instructions Recorded Confirmed Type aspirin 81 mg tablet,delayed 81 mg PO DAILY 09/02/20 04/06/21 History release chlorthalidone 50 mg tablet 50 mg PO DAILY 09/02/20 04/06/21 History ergocalciferol (vitamin D2) 1,250 1,250 mcg PO QWEEK 09/02/20 04/06/21 History mcg (50,000 unit) capsule fluticasone propionate 220 220 mcg INHALATION DAILY 09/02/20 04/06/21 History mcg/actuation HFA aerosol inhaler gabapentin 400 mg capsule 400 mg PO TID 09/02/20 04/06/21 History hydrochlorothiazide 25 mg tablet 25 mg PO DAILY 09/02/20 04/06/21 History ipratropium bromide 17 2 puff PO QID 09/02/20 04/06/21 History mcg/actuation HFA aerosol inhaler meloxicam 7.5 mg tablet 7.5 mg PO BID 09/02/20 04/06/21 History simvastatin 40 mg tablet 40 mg PO BEDTIME 09/02/20 04/06/21 History glipizide 2.5 mg tablet, extended 2.5 mg PO QAM 02/04/21 04/06/21 History release 24 hr loratadine 10 mg tablet 10 mg PO DAILY 02/04/21 04/06/21 History metformin 1,000 mg tablet 1,000 mg PO DAILY 02/04/21 04/06/21 History naloxone 4 mg/actuation nasal spray 4 spray INTRANASAL USEASDIRECTD 02/04/21 04/06/21 History umeclidinium 62.5 mcg/actuation 1 inh INHALATION DAILY 02/04/21 04/06/21 History blister powder for inhalation oxycodone 80 mg tablet,crush 1 tab PO Q8H 04/06/21 04/06/21 History resistant,extended release 12 hr (OxyContin) Allergies Allergy/AdvReac Type Severity Reaction Status Date / Time marijuana Allergy Severe Seizure Verified 04/06/21 10:00 varenicline [From Chantix] AdvReac Intermediate Nausea Verified 04/06/21 10:00 Physical Exam Vital signs: Vital Signs Temp 97.9 F 04/06/21 09:55 Pulse 67 04/06/21 09:55 Resp 14 04/06/21 09:55 BP 145/63 H 04/06/21 09:55 Pulse Ox 95 04/06/21 09:55 Intake & Output 04/05/21 04/06/21 04/06/21 18:59 06:59 18:59 Other: Weight 107.6 kg [place] Weight in Grams [id number] Weight 107.6 kg - Constitutional Present: no acute distress - Routine HEENT Exam Head: Present: normal inspection Eye: Present: EOMI - Routine Neck Exam Present: supple. Absent: lymphadenopathy - Routine Respiratory Exam Present: CTAB. Absent: stridor, wheezes - Routine Cardiovascular Exam Cardiovascular: Present: RRR, S1, S2 - Routine Abdominal Exam Present: soft. Absent: mass Assessment and Plan Patient Active problem list reviewed?: Yes (1) Abnormal laboratory test Status: Acute Assessment and plan: 1. This is a pleasant 60-year-old male, chronic smoker with emphysema referred for evaluation of elevated 5 hydroxyindoleacetic acid in urine. He reports chronic excessive sweating and some diarrhea, symptoms are not consistent with carcinoid syndrome. 24 hour urine 5 HIAA level performed on 02/03/2021 was 7 mg/24 hour. Cut off for this is 6. 24 hour urine 5 HIAA is very sensitive test for carcinoid syndrome but levels have to be much higher. Frequent false positive results occur, they are affected by several foods rich in trip to fan such as tomatoes, bananas and knots. Medications including Tylenol, nicotine and caffeine to name a few can cause falsely high values. Therefore the test is usually done after avoiding such foods and medications for 2-3 days prior to testing. If his level was significantly elevated, at least above 30 repeat testing with avoiding tryptophan rich foods would be recommended. Since the value is only 7 mg/24 hr, I do not recommend repeating this test. Patient was explained results of above test and reassured. I thank you very much for this referral. - Time Spent With Patient Time Spent with Patient (in minutes): 20
--- NOTE | 2021-04-06 11:33 | MHC.HEMONCMA ---
Patient came in for a consult today, states that he is feeling tired. Clinical summary was reviewed and updated. Patient did not have labs. Per Dr Porras's note, the patient does not need to return for a follow up.
== END | disposition home or self-care (01) ==
LOC: HO.ONC 04-06 09:31
PROVIDERS: PCP Internal Medicine; Referring Provider Internal Medicine; Visit Provider Internal Medicine
DX: R82.998 Other abnormal findings in urine (principal); R61 Generalized hyperhidrosis; J43.9 Emphysema, unspecified; F17.210 Nicotine dependence, cigarettes, uncomplicated
CPT/HCPCS: 99202

== ENCOUNTER → 2024-08-21 15:08 | Outpatient (BNV) | payer MEDICARE, MEDICAID, SELFPAY | PROVIDERS: Visit Provider Radiology Diagnostic Radiology | DX: M25.522 Pain in left elbow (principal); M25.532 Pain in left wrist; M25.561 Pain in right knee | CPT/HCPCS: 73070; 73110; 73564 ==

== ENCOUNTER 2024-08-30 15:25 | Outpatient (REF) | payer MEDICARE, MEDICAID, SELFPAY ==
--- OUTSIDE RECORDS SUMMARY | 2024-08-30 15:28 | XMS_ITS | Encounter Summary ---
Author Organization [employer] Address [address] [facility] [address] [place] [address] Care Team Providers Care Sharepoint Application Architect Name Role Phone Ciara Garcia MD Primary Care Provide r Reason for Visit * Reason Comments Med Refill Encounter Details Date Type Department Care Team ([facility] st Contact Info) Description 06/01/2024 Refill [facility] [address] [place] [address] Ciraa Garcia MD [address] [place] [address] Cervicalgia; Tobacco dependence syndrome; Uncomplicated asthma, unspecified asthma severity, unspecified whether persistent Social History Tobacco Use Types Packs/Day Years Used Date Smoking Tobacco: Every Day Cigarettes 0.5 45 Passive Smoke Exposure: Current Smokeless Tobacco: Never Depression Answer Date Recorded Patient Health Questionnaire-9 Score 0 12/28/2022 Housing Stability Answer Date Recorded What is your housing situation today? I have magnus truong 05/04/[address] you li ve. Do you have problems with any of the following? None of the above 05/04/2023 Food Insecurity Answer Date Recorded Within the past 12 months, y ou worried that your food would run out before you got money to buy more: Never True 05/04/2023 Within the past 12 months,th e food you bought just didn't last and you didn't have enough money to get more: Never True Transportation Answer Date Recorded In the past 12 months, has l ack of transportation kept you from medical appts, meetings, work or from getting things needed for daily living? No 05/04/2023 Utilities Answer Date Recorded In the past 12 months, has t he electric, gas, oil or water company threatened to shut off services in your home? No 05/04/2023 Depression Answer Date Recorded Patient Health Questionnaire-2 Score 0 12/28/2022 Sex and Gender Information Value Date Recorded Sex Assigned at Male 05/16/2022 10:16 AM EDT Legal Sex Male 10:16 AM EDT Gender Identity Male 05/16/2022 10:16 AM EDT Sexual Orientation Straight 05/16/2022 10 :16 AM EDT documented as of this encounter Plan of Treatment Upcoming Encounters Date Type Department Care Team (Late st Contact Info) Description 09/13/2024 11:15 AM EST Office Visit [facility] [address] [place] [address] Gabriela Castañeda, OD [address] [place] [address] 09/26/2024 10:00 AM EDT Office Visit [facility] [address] [place] [address] Ciara Garcia MD [address] [place] [phone] 11/12/2024 9:30 AM EDT Clinical Support [facility] [address] [place] [phone] Jasmina Coronado RN documented as of this encounter Visit Diagnoses Diagnosis Cervicalgia Tobacco dependence syndrome Tobacco use disorder Uncomplicated asthma, unspecified asthma severity, unspecified whether persistent documented in this encounter Additional Health Concerns Assessment Noted Time PHQ-9 Depression Total Score: 0 12/29/19 23 11:51 AM EDT documented as of this encounter Care Teams Sharepoint Application Architect Relationship Specialty Start Date End Date Ciara Garcia MD [address] [place] [phone] PCP - General Family Medicine 06/04/19 documented as of this encounter
--- OUTSIDE RECORDS SUMMARY | 2024-08-30 15:28 | XMS_ITS | Encounter Summary ---
Author Organization [employer] Address [address] [facility] 7[address] [place] [address] Care Team Providers Care Financial Specialist Name Role Phone Ciara Garcia MD Primary Care Provide r Encounter Details Date Type Department Care Team (Late Contact Info) Description 09/02/2022 Orders Only [facility] [address] [place], [place] [phone] Jason Hatfield MD [address] [place] [address] Social History Tobacco Use Types Packs/Day Years Used Date Smoking Tobacco: Every Day Cigarettes 1 45 Smokeless Tobacco: Never Comments:Pt is poor historia n. States has been smoking since he was a teenager. On average used to smoke 1 ppd but for the year or so has been smoking about 5 cigarettes a day. Sex and Gender Information Value Date Recorded Sex Assigned at Male 05/16/2022 10:16 AM EDT Legal Sex Male 10:16 AM EDT Gender Identity Male 05/16/2022 10:16 AM EDT Sexual Orientation Straight 05/16/2022 10 :16 AM EDT COVID-19 Exposure Response Date Recorded In the last 10 days, have yo u been in contact with someone who was confirmed or suspected to have Coronavirus/COVID-19? No / Unsure 09/01/2022 1:44 PM EST documented as of this encounter Plan of Treatment Upcoming Encounters Date Type Department Care Team ([facility] Contact Info) Description 09/13/2024 11:15 AM EST Office Visit [facility] [address] [place] [address] Gabriela Castañeda, OD [address] [place] [address] 09/26/2024 10:00 AM EDT Office Visit [facility] [address] [place] [address] Ciara Garcia MD [address] [place] [address] 11/12/2024 9:30 AM EDT Clinical Support [facility] [address] [place] [address] Jasmina Coronado RN documented as of this encounter Procedures Procedure Name Priority Date/Time Associated Diagnosis Comments ALBUMIN, RANDOM URINE W/CREATININE Routine 06/05/2023 2:50 PM EST documented in this encounter Results * (ABNORMAL) Albumin, Random Urine W/Creatinine (06/05/2023 2:50 PM EST) Creatinine, Urine 301.05 mg/dL [facility] Microalbumin Urine 248.0 mg/L [facility] Microalbum Creatinine Ratio Ur 82.3(H) <30 ug/mg cr [facility] Comment:Albumin/Creatinine R atio Reference Ranges: Normal: < 30 ug/mg creatinine Microalbuminuria: 30 - 300 ug/mg creatinineClinical Albuminuria: > 300 ug/mg creatinine 06/05/2023 2:50 PM EST 06/05/2023 4:05 PM EST us Ciara Celaya MD LAB URINE ORDERABLES Final Result [facility] [address] [place] [address] [phone] documented in this encounter Visit Diagnoses Not on filedocumented in this encounter Care Teams Financial Specialist Relationship Specialty Start Date End Date Ciara Garcia MD [address] [place] [phone] PCP - General Family Medicine 06/04/19 documented as of this encounter
--- OUTSIDE RECORDS SUMMARY | 2024-08-30 15:28 | XMS_ITS | Encounter Summary ---
Author Organization [employer] Address [address] [facility] [address] [place] [address] Care Team Providers Care Information Systems Security Manager Name Role Phone Ciara Garcia MD Primary Care Provide r Reason for Visit * Reason Comments Med Refill Encounter Details Date Type Department Care Team ([facility] st Contact Info) Description 05/06/2024 Refill [facility] [address] [place] [address] Ciara Garcia MD [address] [place] [address] Cervicalgia; Tobacco dependence syndrome Social History Tobacco Use Types Packs/Day Years [...] Description 09/13/2024 11:15 AM EST Office Visit [facility] [address] [place], [place] [phone] Gabriela Castañeda, OD [address] [place] [address] 09/26/2024 10:00 AM EDT Office Visit [facility] [address] [place] [phone] Ciara Garcia MD [address] [place] [phone] 11/12/2024 9:30 AM EDT Clinical Support [facility] [address] [place] [phone] Jasmina Coronado, MARIBEL documented as of this encounter Visit Diagnoses Diagnosis Cervicalgia Tobacco dependence syndrome Tobacco use disorder documented in this encounter Additional Health Concerns Assessment Noted Time PHQ-9 Depression Total Score: 0 12/29/19 23 11:51 AM EDT documented as of this encounter Care Teams Information Systems Security Manager Relationship Specialty Start Date End Date Ciara Garcia MD [address] [place] [phone] PCP - General Family Medicine 06/04/19 documented as of this encounter
--- OUTSIDE RECORDS SUMMARY | 2024-08-30 15:28 | XMS_ITS | Data Portability ---
Author Organization [place] - [facility], Allergy Address [address] [place] [id number] Assessment Encounter Date Assessment Date Assessment LastModified by Organization Details LastModified Time 02/22/2024 02/22/2024 Patient describes foul-smelling rhinorrhea. Nasal endoscopy was performed today demonstrating thick clear mucus and edema of the nasal mucosa. No purulence, polyps or lesions. I suspect his symptoms are harshly related to his smoking and I encouraged him to consider smoking cessation. Otherwise a trial of topical nasal steroids may be helpful. Continue use of nasal saline and follow-up in 3 months to review progress. At that time if his symptoms are unchanged may consider empiric trial of antibiotics [email or web address] Not available 02/22/2024 10:54:23 Plan of Treatment Reminders Order Date Submit Date Provider Last Modified By Organization Details Last Modified Time Details Appointments None recorded. Lab None recorded. Referral None recorded. Procedures None recorded. Surgeries None recorded. Imaging None recorded. Medication Orders Flonase Allergy Relief 50 mcg/actua tion nasal spray,padmini pension 024 024 [email or web address] [id number], [address] [place], [address], 10:52:18 Patient TargetsNo targets recorded. Patient InstructionsNo instructions recorded. Reason for Referral None Reported. Problems Name Problem SNOMED Code Status Onset Date Resolution Date Notes Provider Name and Address Organization Details Recorded Time Tobacco dependence caused by cigarettes 9131140374224 9107 Active 2023 KATHRYN KOWALSKI MD [address] [place] [address], [phone] [facility] - [facility] 4 10:51:02 Anterior rhinorrhea 539891657 Active 2023 KATHRYN KOWALSKI MD 100 [facility], [place], [phone], [facility] 10:51:12 Allergic rhinitis 57090072 Active 2023 KATHRYN KOWALSKI MD 100 [facility] 100, [place], [address], [facility] 4 10:51:19 Problem Notes None recorded. Procedures Surgical History Date Name Laterality Status Provider Name and Address Organization Details Recorded Time 02/22/2024 NasalEndos copy_DP completed KATHRYN KOWALSKI MD 100 [facility] 100, [place], [address], [facility] 02/22/2024 10:50:34 Imaging Results None recorded. Procedure Notes None recorded. Medical Equipment None Reported. Medications Name Sig Start Date Stop Date Status Note LastModified by Organization Details LastModified Time bupropion HCl SR 150 mg tablet,12 hr sustained-re lease TAKE 1 TABLET BY MOUTH TWICE A DAY. DO NOT CRUSH, SPLIT, OR CHEW. active Not Available Not Available No t Available nicotine 14 mg/[address] 1 PATCH ON THE SKIN 1 TIME EACH DAY AT THE SAME TIME. active Not Available Not Available N ot Available ibuprofen 800 mg tablet TAKE 1 TABLET BY MOUTH EVERY 8 HOURS WITH FOOD active Not Available Not Available No t Available amlodipine 5 mg tablet TAKE 1 TABLET BY MOUTH EVERY DAY active Not Available Not Available No t Available aspirin 81 mg tablet,delay ed release TAKE 1 TABLET BY MOUTH EVERY DAY active Not Available Not Available No t Available simvastatin 40 mg tablet TAKE 1 TABLET BY MOUTH EVERY DAY IN THE EVENING active Not Available Not Available No t Available modafinil 200 mg tablet TAKE 1 TABLET BY MOUTH EVERY DAY IN THE MORNING active Not Available Not Available No t Available tamsulosin 0.4 mg capsule TAKE 1 CAPSULE BY MOUTH EVERY DAY IN THE MORNING active Not Available Not Available No t Available baclofen 10 mg tablet TAKE 1 TABLET (10 MG) BY MOUTH EVERY 8 (EIGHT) HOURS IF NEEDED FOR MUSCLE SPASMS. active Not Available Not Available No t Available lisinopril 10 mg tablet TAKE 1 TABLET BY MOUTH EVERY DAY IN THE MORNING active Not Available Not Available No t Available fluticasone propionate 50 mcg/actuatio n nasal spray,suspen tram SPRAY 1 SPRAY INTO EACH NOSTRIL TWICE A DAY FOR NASAL ALLERGIES active Not Available Not Available No t Available Ventolin HFA 90 mcg/actuatio n aerosol inhaler INHALE 2 PUFFS BY MOUTH EVERY 4 TO 6 HOURS IF NEEDED FOR BRONCOSPASM OR SHORTNESS OF BREATH active Not Available Not Available No t Available nitrofuranto in monohydrate/ macrocrystal s 100 mg capsule TAKE 1 CAPSULE BY MOUTH 2 TIMES DAILY FOR 5 DAYS. active Not Available Not Available Not Available diclofenac 1 % topical gel APPLY 2 GRAMS TO AFFECTED AREA TWICE A DAY active Not Available Not Available No t Available OxyContin 80 mg tablet,crush resistant,ex tended release TAKE 1 TABLET BY MOUTH EVERY 8 HOURS FOR 28 DAYS active Not Available Not Available No t Available naloxone 4 mg/actuation nasal spray ADMINISTER 1 SPRAY (4 MG) INTO AFFECTED NOSTRIL(S) IF NEEDED FOR OPIOID REVERSAL AND CALL 911 active Not Available Not Available No t Available Vitals Date Recorded Body height Body mass index (BMI) Body weight Provider Name and Address Organization Details Last Updated DateTime 02/22/2024 175.26 cm 32.5 kg/m2 24994.32 g Lorna Ace [place] - [facility] 02/22/2024 10:40:24 Social History None recorded. Functional Status None recorded. Mental Status None recorded. Family History Nothing Reported. Medical History No medical history recorded. Past Encounters Encounter ID Performer Location Encounter Start Date Encounter Closed Date Diagnosis/Indication Diagnosis SNOMED-CT Code Diagnosis ICD10 Code Diagnosis Note [id number] KATHRYN KOWALSKI MD [facility] [address] [phone] 02/22/2024 09:50:45 02/22/2024 10:54:27 Tobacco dependence caused by cigarettes [id number] 9565375 F17.210 Anterior rhinorrhea 2772 52116 J34.89 Allergic rhinitis 282210 04 J30.9 Health Concerns Section Related Observation LastModified by Organization Detai ls LastModified Time None Recorded Concern Status LastModified by Organization Details LastModified Time None Recorded Advance Directives Directive None Recorded Payers Encounter Date Sequence Insurance Name Policy Number Policy Akers Covered Member ID Akers Member ID Guarantor Name 02/22/2024 1 [place] [employer] Efraín Bravo [id number] Efraín Augustus Jerry 02/22/2024 2 [place] [facility] Efraín Bravo [id number] Efraín Vallesjeff Jerry Notes Date Note Type Note Provider Name and Address Organization Details Recorded Time 02/22/2024 text/html rhinorrheafoul o saige in mucusonset around summer 2022no trial of abxuses nasal lavage twice dailyno prior nose surgery or imaging+nasal congestion fluctuate depending on how laying downtobacco - 1/2ppd work - 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
--- OUTSIDE RECORDS SUMMARY | 2024-08-30 15:28 | XMS_ITS | Encounter Summary ---
Author Organization [employer] Address [address] [facility] 7t [place] [address] Care Team Providers Care Neurology Stroke Physician Name Role Phone Ciara Garcia MD Primary Care Provide r Reason for Visit * Reason Comments Med Refill Encounter Details Date Type Department Care Team ([facility] st Contact Info) Description 02/26/2024 Refill [facility] MEDICINE [address] [place] [address] Ciara Garcia MD [address] [place] [address] Cervicalgia; Tobacco dependence syndrome; Uncomplicated asthma, unspecified [...] Description 09/13/2024 11:15 AM EST Office Visit [facility] OPTOMETRY [address] [place] [address] Gabriela Castañeda, OD [address] [place] [address] 09/26/2024 10:00 AM EDT Office Visit [facility] MEDICINE [address] [place] [address] Ciara Garcia MD [address] [place] [address] 11/12/2024 9:30 AM EDT Clinical Support [facility] MEDICINE [address] [place] [address] Jasmina Coronado RN documented as of this encounter Visit Diagnoses Diagnosis Cervicalgia Tobacco dependence syndrome Tobacco use disorder Uncomplicated asthma, unspecified asthma severity, unspecified whether persistent documented in this encounter Additional Health Concerns Assessment Noted Time PHQ-9 Depression Total Score: 0 12/29/19 23 11:51 AM EDT documented as of this encounter Care Teams Neurology Stroke Physician Relationship Specialty Start Date End Date Ciara Garcia MD [address] [place] [address] PCP - General Family Medicine 06/04/19 documented as of this encounter
--- OUTSIDE RECORDS SUMMARY | 2024-08-30 15:29 | XMS_ITS | Encounter Summary ---
Author Organization [employer] Address [address] [facility] 7t [place] [address] Care Team Providers Care Heat Treat Worker Name Role Phone Ciara Garcia MD Primary Care Provide r Reason for Visit * Reason Comments Med Refill Encounter Details Date Type Department Care Team ([facility] st Contact Info) Description 06/29/2023 Refill [facility] MEDICINE [address] [place] [address] Vianney Odom, MARKY [address] [place] [address] Chronic low back pain with bilateral sciatica, unspecified back pain laterality Social History Tobacco Use Types Packs/Day Years [...] Description 09/13/2024 11:15 AM EST Office Visit [facility] OPTOMETRY [address] [place] [address] TarGabriela vidal, OD [address] [place] [address] 09/26/2024 10:00 AM EDT Office Visit [facility] MEDICINE [address] [place] [phone] Ciara Garcia MD [address] [place] [address] 11/12/2024 9:30 AM EDT Clinical Support [facility] MEDICINE [address] [place] [address] Jasmina Coronado RN documented as of this encounter Visit Diagnoses Diagnosis Chronic low back pain with bilateral sciatica, unspecified back pain laterality documented in this encounter Additional Health Concerns Assessment Noted Time PHQ-9 Depression Total Score: 0 12/29/19 23 11:51 AM EDT documented as of this encounter Care Teams Heat Treat Worker Relationship Specialty Start Date End Date Ciara Garcia MD [address] [place] [id number] PCP - General Family Medicine 06/04/19 documented as of this encounter
--- OUTSIDE RECORDS SUMMARY | 2024-08-30 15:29 | XMS_ITS | Encounter Summary ---
Author Organization [employer] Address [address] [facility] 7t [place] [address] Care Team Providers Care Retail Branch Manager Name Role Phone Ciara Garcia MD Primary Care Provide r Reason for Visit * Reason Comments ASSISTED LIVING COORDINATOR RV ASSISTED LIVING COORDINATOR RV Encounter Details Date Type Department Care Team (Latest Contact Info) Description 08/15/2024 10:00 AM EST Clinical Support [facility] MEDICINE [address] [place] [address] Jasmina Coronado RN Chronic low back pain with bilateral sciatica, unspecified back pain laterality (Primary Dx) Social History Tobacco Use Types Packs/Day Years Used Date Smoking Tobacco: Every Day Cigarettes 0.5 45 Passive Smoke Exposure: Current Smokeless Tobacco: Never Depression Answer Date Recorded Patient Health Questionnaire-9 Score 0 12/28/2022 Housing Stability Answer Date Recorded What is your housing situation today? I have magnus troung 05/04/[address] you li [...] t he electric, gas, oil or water [employer] threatened to shut off services in your home? No 05/04/2023 Depression Answer Date Recorded Patient Health Questionnaire-2 Score 0 12/28/2022 Sex and Gender Information Value Date Recorded Sex Assigned at Male 05/16/2022 10:16 AM EDT Legal Sex Male 10:16 AM EDT Gender Identity Male 05/16/2022 10:16 AM EDT Sexual Orientation Straight 05/16/2022 10 :16 AM EDT documented as of this encounter Progress Notes * Jasmina Coronado RN - 08/15/2024 10:00 AM EST S: Pt here for ASSISTED LIVING COORDINATOR Revisit. Prescribed Oxycontin 80mg Q8hr PRN. States he has been taking as prescribed. He last took a dose at 4am this morning. States he smokes 1 pack of cigarettes a day. Denies ETOH use, Illicit drug use and marijuana use. Currently rates his pain a 7 and states medication is 50% effective at alleviating his pain. Current pain sites are his lower back, neck and hips. Pt cancelled ASSISTED LIVING COORDINATOR appt 07/30/24. O: SCT Tier 2. Pt currently prescribed Oxycontin 80mg Q8hr PRN. [employer] [place] verified today. Rx last filled on 08/07/24. Pill count performed. Pt has 2 pills at this time, 0 at least expected. Medication is not overused by patient. UTOX completed. Positive for OXY, Negative for AMP, BAR, BUP, BZO, AMELIA, FTY, MDMA, MET, MOP, MTD, PCP, TCA, THC. UTOX as expected. BPI updated today. Pain severity score of 6.8,activity interference score of 6.3. Previous BPI completed 03/27/24 with pain severity score of 6.5, activity interference score of 7. Will update PCP with BPI scoring. Pt aware refill Oxycontin is at pharmacy and ready for pickup today. Last PCP visit was 06/21/24, scheduled next 09/26/24. A: ASSISTED LIVING COORDINATOR Contract Revisit: Chronic Opioid use related to pain. P: Pt to continue taking medication only as prescribed; Next ASSISTED LIVING COORDINATOR RV appointment scheduled for 11/12/24 @ 9:30am, F/U sooner PRN. Appointment reminder given. Pt verbalized understanding and agreed to plan. documented in this encounter Plan of Treatment Upcoming Encounters Date Type Department Care Team (Late st Contact Info) Description 09/13/2024 11:15 AM EST Office Visit [facility] OPTOMETRY [address] [place] [address] Gabriela Castañeda, OD [address] [place] [address] 09/26/2024 10:00 AM EDT Office Visit [facility] MEDICINE [address] [place] [address] Ciara Garcia MD [address] [place] [address] 11/12/2024 9:30 AM EDT Clinical Support [facility] MEDICINE [address] [place] [address] Jasmina Coronado RN documented as of this encounter Procedures Procedure Name Priority Date/Time Associated Diagnosis Comments POCT HERBER-14 URINE DRUG SCREEN Routine 08/15/2024 10:04 AM EST Chronic low back pain with bilateral sciatica, unspecified back pain laterality documented in this encounter Results * POCT HERBER-14 Urine Drug Screen (08/15/2024 10:04 AM EST) Oxycodone Screen, Urine Positive Urine Urine specimen obtained by clean catch procedure / Unknown 08/15/2024 10:04 AM EST Narrative Jasmina Coronado RN - 08/15/2024 10:04 AM EST UTOX cup Lot#[id number] Exp. 04/10/26 Internal Pass Control us Ciara Celaya MD POINT OF CARE TEST EN TER/EDIT ORDERABLES Final Result documented in this encounter Visit Diagnoses Diagnosis Chronic low back pain with bilateral sciatica, unspecified back pain laterality- Primary documented in this encounter Additional Health Concerns Assessment Noted Time PHQ-9 Depression Total Score: 0 12/29/19 23 11:51 AM EDT documented as of this encounter Care Teams Retail Branch Manager Relationship Specialty Start Date End Date Ciara Garcia MD [address] [place] [address] PCP - General Family Medicine 06/04/19 documented as of this encounter
--- OUTSIDE RECORDS SUMMARY | 2024-08-30 15:29 | XMS_ITS | Encounter Summary ---
Author Organization [facility] Address [address] [place] [address] 7 [place] [address] Care Team Providers Care Approver Name Role Phone Ciara Garcia MD Primary Care Provide r Reason for Visit * Reason Onset Date Comments Med Refill 02/16/2023 Encounter Details Date Type Department Care Team ([facility] st Contact Info) Description 02/16/2023 Telephone [facility] MEDICINE [address] [place] [address] Caira Garcia MD [address] [place] [address] Med Refill Social History Tobacco Use Types Packs/Day Years Used Date Smoking Tobacco: Every Day Cigarettes 0.5 45 Passive Smoke Exposure: Current Smokeless Tobacco: Never Depression Answer Date Recorded Patient Health Questionnaire-9 Score 0 12/28/2022 Depression Answer Date Recorded Patient Health Questionnaire-2 Score 0 12/28/2022 Sex and Gender Information Value Date Recorded Sex Assigned at Male 05/16/2022 10:16 AM EDT Legal Sex Male 10:16 AM EDT Gender Identity Male 05/16/2022 10:16 AM EDT Sexual Orientation Straight 05/16/2022 10 :16 AM EDT documented as of this encounter Miscellaneous Notes * Telephone Encounter - Bhumika Estrada - 02/16/2023 10:41 AM EDT Tc from pt spouse requesting med refill for medication oxyCODONE ER (OxyCONTIN) 80 MG 12 hr tablet. documented in this encounter Plan of Treatment Upcoming Encounters Date Type Department Care Team (Late st Contact Info) Description 09/13/2024 11:15 AM EST Office Visit [facility] OPTOMETRY [address] [place], [place] [phone] Gabriela Castañeda, OD [address] [place] [address] 09/26/2024 10:00 AM EDT Office Visit [facility] MEDICINE [address] [place] [address] Ciara Garcia MD [address] [place] [address] 11/12/2024 9:30 AM EDT Clinical Support [facility] MEDICINE [address] [place] [address] Jasmina Coronado RN documented as of this encounter Visit Diagnoses Not on filedocumented in this encounter Additional Health Concerns Assessment Noted Time PHQ-9 Depression Total Score: 0 12/29/19 23 11:51 AM EDT documented as of this encounter Care Teams Approver Relationship Specialty Start Date End Date Ciara Garcia MD [address] [place] [id number] PCP - General Family Medicine 06/04/19 documented as of this encounter
--- OUTSIDE RECORDS SUMMARY | 2024-08-30 15:29 | XMS_ITS | Encounter Summary ---
Author Organization [employer] Address [address] [facility] 7 [place] [address] Care Team Providers Care Training Personnel Supervisor Name Role Phone Ciara Garcia MD Primary Care Provide r Reason for Visit * Reason Onset Date Comments FYI 06/20/2024 Encounter Details Date Type Department Care Team ([facility] Contact Info) Description 06/20/2024 Telephone [facility] MEDICINE [address] [place] [address] Ciara Garcia MD [address] [place] [address] FYI Social History Tobacco Use Types Packs/Day Years [...] encounter Miscellaneous Notes * Telephone Encounter - Tank Ruvalcaba - 06/20/2024 12:02 PM EST Tc from spouse requesting call back to inform TECH ED/WOODSHOP TEACHER nurse that pt has received medication. documented in this encounter Plan of Treatment Upcoming Encounters Date Type Department Care Team (Late st Contact Info) Description 09/13/2024 11:15 AM EST Office Visit [facility] OPTOMETRY [address] [place] [address] Gabriela Castañeda, OD [address] [place] [address] 09/26/2024 10:00 AM EDT Office Visit [facility] MEDICINE [address] [place] [address] Ciara Garcia MD [address] [place] [address] 11/12/2024 9:30 AM EDT Clinical Support [facility] MEDICINE [address] [place] [phone] Jasmina Coronado RN documented as of this encounter Visit Diagnoses Not on filedocumented in this encounter Additional Health Concerns Assessment Noted Time PHQ-9 Depression Total Score: 0 12/29/19 23 11:51 AM EDT documented as of this encounter Care Teams Training Personnel Supervisor Relationship Specialty Start Date End Date Ciara Garcia MD [address] [place] [address] PCP - General Family Medicine 06/04/19 documented as of this encounter
--- OUTSIDE RECORDS SUMMARY | 2024-08-30 15:29 | XMS_ITS | Clinical Summary ---
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 01/27/20 21 Active ergocalciferol (Vitamin D-2) 1.25 MG (73383 UT) capsule take 1 capsule by oral route every week 11/13/19 22 Active fluticasone (Flovent) 220 MCG/ACT inhaler Inhale 1 puff every 12 (twelve) hours. 10/10/19 21 Active glucose blood (FREESTYLE LITE) test strip at bed time. 12/22/19 21 Active ipratropium (Atrovent HFA) 17 MCG/ACT inhaler Inhale 2 puffs every 6 (six) hours. 09/29/19 21 Active amLODIPine (Norvasc) 5 MG tablet Take 5 mg by mouth in the morning. 11/28/19 23 Active modafinil (Provigil) 200 MG tablet 04/17/20 23 Active naloxone (Narcan) 4 mg/0.1 mL nasal sprayIndication s:Chronic low back pain with bilateral sciatica, unspecified back pain laterality Administer 1 spray (4 mg) into affected nostril(s) if needed for opioid reversal. 2 each 3 06/13/20 23 Active nicotine (Nicoderm CQ) 7 MG/24HR patchIndication s:Tobacco dependence Place 1 patch on the skin 1 (one) time each day at the same time. 14 patch 08/25/19 24 Active nicotine (Nicoderm, Step 2) 14 MG/24HR patchIndication s:Tobacco dependence PLACE 1 PATCH ON THE SKIN 1 TIME EACH DAY AT THE SAME TIME. 42 patch 08/25/19 24 Active Diclofenac Sodium 1 % gelIndications: Chronic low back pain with bilateral sciatica, unspecified back pain laterality APPLY 2 GRAMS TO AFFECTED AREA TWICE A DAY 100 g 3 10/05/19 24 Active Aspirin Low Dose 81 MG EC tablet TAKE 1 TABLET BY MOUTH EVERY DAY 90 tablet 3 12/12/19 24 Active lisinopril 10 MG tabletIndicatio ns:Essential hypertension TAKE 1 TABLET BY MOUTH EVERY DAY IN THE MORNING 90 tablet 1 01/31/20 24 Active simvastatin (Zocor) 40 MG tablet TAKE 1 TABLET BY MOUTH EVERY DAY IN THE EVENING 90 tablet 3 01/31/20 24 Active tamsulosin (Flomax) 0.4 MG 24 hr capsule TAKE 1 CAPSULE BY MOUTH EVERY DAY IN THE MORNING 90 capsule 04/24/20 24 Active loratadine (Claritin) 10 MG tabletIndicatio ns:Seasonal allergies TAKE 1 TABLET BY MOUTH EVERYDAY AT BEDTIME 90 tablet 1 04/26/20 24 Active buPROPion SR (Wellbutrin SR) 150 MG 12 hr tabletIndicatio ns:Tobacco dependence syndrome TAKE 1 TABLET BY MOUTH TWICE A DAY. DO NOT CRUSH, SPLIT, OR CHEW. 180 tablet 06/20/20 24 Active albuterol (Ventolin HFA) 108 (90 Base) MCG/ACT inhalerIndicati ons:Uncomplicat ed asthma, unspecified asthma severity, unspecified whether persistent INHALE 2 PUFFS BY MOUTH EVERY 4 TO 6 HOURS IF NEEDED FOR BRONCOSPASM OR SHORTNESS OF BREATH 18 g 2 06/20/20 24 Active ibuprofen 800 MG tabletIndicatio ns:Chronic low back pain with bilateral sciatica, unspecified back pain laterality TAKE 1 TABLET BY MOUTH EVERY 8 HOURS WITH FOOD 90 tablet 06/20/20 24 Active baclofen (Lioresal) 10 MG tabletIndicatio ns:Cervicalgia TAKE 1 TABLET (10 MG) BY MOUTH EVERY 8 (EIGHT) HOURS IF NEEDED FOR MUSCLE SPASMS. 60 tablet 1 06/25/20 24 Active oxyCODONE ER (OxyCONTIN) 80 MG 12 hr tabletIndicatio ns:Other chronic pain Take 1 tablet (80 mg) by mouth every 8 (eight) hours for 28 days. 84 tablet 08/15/19 25 2024 Active cyanocobalamin (Vitamin B-12) 1000 MCG tabletIndicatio ns:B12 deficiency Take 1 tablet (1,000 mcg) by mouth Once per day. 90 tablet 1 08/30/19 Active nicotine polacrilex (Nicotine Mini) 4 MG lozengeIndicati ons:Continuous dependence on cigarette smoking Dissolve 1 lozenge (4 mg) in the mouth every 2 (two) hours if needed for smoking cessation. 100 lozenge 08/30/19 25 2024 Active cyanocobalamin (Vitamin B-12) 1000 MCG tablet Take 1 tablet by mouth at bed time. 03/04/20 20 2024 Discontinued(R eorder (will not trigger notification to Pharmacy)) nicotine polacrilex (Nicorette) 2 MG gum Take by mouth every 2 (two) hours. 04/21/20 20 2024 Discontinued nicotine polacrilex (Commit) 4 MG lozenge Dissolve 1 lozenge (4 mg) in the mouth every 2 (two) hours if needed for smoking cessation. 100 lozenge 08/25/19 24 2024 Discontinued oxyCODONE ER (OxyCONTIN) 80 MG 12 hr tabletIndicatio ns:Other chronic pain Take 1 tablet (80 mg) by mouth every 8 (eight) hours for 28 days. Do not start before July 08, 2024. 84 tablet 07/08/20 24 2024 Discontinued(R eorder (will not trigger notification to Pharmacy)) oxyCODONE ER (OxyCONTIN) 80 MG 12 hr tabletIndicatio ns:Other chronic pain Take 1 tablet (80 mg) by mouth every 8 (eight) hours for 28 days. Do not start before August 05, 2024. 84 tablet 08/05/19 25 2024 Discontinued(R eorder (will not trigger notification to Pharmacy)) oxyCODONE ER (OxyCONTIN) 80 MG 12 hr tabletIndicatio ns:Other chronic pain Take 1 tablet (80 mg) by mouth every 8 (eight) hours for 28 days. 84 tablet 08/06/19 25 2024 Discontinued(R eorder (will not trigger notification to Pharmacy)) oxyCODONE ER (OxyCONTIN) 80 MG 12 hr tabletIndicatio ns:Other chronic pain Take 1 tablet (80 mg) by mouth every 8 (eight) hours for 28 days. Do not start before August 15, 2024. 84 tablet 08/15/19 25 2024 Discontinued(R eorder (will not trigger notification to Pharmacy)) Active Problems Problem Noted Date Diagnosed Date Cervicalgia 01/30/2024 Assessment & Plan (01/30/2024 4:17 PM EDT): On review of medications, I notice he has being missing his baclofen for some time, I will order it today Seasonal allergies 01/30/2024 Numbness and tingling 01/30/2024 Assessment & Plan (01/30/2024 4:18 PM EDT): Patient has not being taking B12 supplements I will order levels then I will contact him with results Vitamin D deficiency 01/30/2024 Kidney stones 08/25/2023 Cacosmia 07/20/2023 JOHNSTON (nonalcoholic steatohepatitis) 07/20/2023 Assessment & Plan (07/20/2023 10:16 AM EST): Counseling about healthy diet done GI referral done US reviewed with patient Elevated LFTs 06/06/2023 Steatosis of liver 06/06/2023 Preventative health care 05/15/2023 Assessment & Plan (05/15/2023 3:49 PM EDT): See HPI Bunion 02/10/2023 Neck pain 02/10/2023 Numbness of upper limb 02/10/2023 Hypoventilation 02/10/2023 Diabetes 12/28/2022 Assessment & Plan (06/25/2024 4:58 PM EST): Diabetes is: controlled - Lab Results Component Value Date HGBA1C 7.0 (A) 06/21/2024 HGBA1C 6.8 (A) 10/25/2023 HGBA1C 6.8 (A) 03/27/2023 - Lab Results Component Value Date MICROALBUR 248.0 06/05/2023 CREATININE 1.27 12/19/2023 -Changes: none - Diabetic eye exam:up to date - Diabetic foot exam:referral done - Continue lifestyle modifications - Continue current medications - Follow up: 3 months Assessment & Plan (10/25/2023 2:01 PM EDT): Diabetes is: controlled - Lab Results Component Value Date HGBA1C 6.8 (A) 10/25/2023 HGBA1C 6.8 (A) 03/27/2023 HGBA1C 6.8 (A) 12/28/2022 - Lab Results Component Value Date MICROALBUR 248.0 06/05/2023 CREATININE 1.23 06/05/2023 -Changes: none - Diabetic eye exam:up to date - Diabetic foot exam:referral to podiatry done - Continue lifestyle modifications - Continue current medications - Follow up: 3 months Assessment & Plan (07/20/2023 10:16 AM EST): - Lab Results Component Value Date HGBA1C 6.8 (A) 03/27/2023 HGBA1C 6.8 (A) 12/28/2022 HGBA1C 6.8 (A) 08/25/2022 - Lab Results Component Value Date MICROALBUR 248.0 06/05/2023 CREATININE 1.23 06/05/2023 - - Diabetic eye exam:up to date - Diabetic foot exam: referral done - Continue lifestyle modifications Assessment & Plan (05/15/2023 3:47 PM EDT): - Lab Results Component Value Date HGBA1C 6.8 (A) 03/27/2023 HGBA1C 6.8 (A) 12/28/2022 HGBA1C 6.8 (A) 08/25/2022 - Lab Results Component Value Date CREATININE 1.11 09/23/2021 - Diabetic eye exam: referral today - Diabetic foot exam: up to date follow by podiatry - Continue lifestyle modifications - Continue current medications Assessment & Plan (03/27/2023 10:00 AM EDT): - Lab Results Component Value Date HGBA1C 6.8 (A) 03/27/2023 HGBA1C 6.8 (A) 12/28/2022 HGBA1C 6.8 (A) 08/25/2022 - Lab Results Component Value Date CREATININE 1.11 09/23/2021 - Continue lifestyle modifications - Continue current medications Assessment & Plan (12/28/2022 2:41 PM EDT): - Lab Results Component Value Date HGBA1C 6.8 (A) 08/25/2022 HGBA1C 7.2 (H) 10/07/2020 - Lab Results Component Value Date CREATININE 1.11 09/23/2021 - Diabetic eye exam:up to date - Diabetic foot exam:pending - Continue lifestyle modifications - Continue with same interventions - 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 Hypersomnia 08/25/2022 Neuropathy of both feet 08/25/2022 Onychomycosis 08/25/2022 Chronic low back pain 06/16/2022 Acute kidney injury 03/24/2021 Hypertension 11/01/2018 Assessment & Plan (06/25/2024 4:56 PM EST): I advised: - Aerobic exercise to reduce BP. Initial goal of 30 min walk 3-5x/week. Increase as tolerated. - low-sodium diet (goal: <2g/day) and heart healthy diet such as DASH to reduce BP and prevent ASCVD. - Home BP monitoring 1-2 x day with goal of <140/90. - Seek immediate medical attention for chest pain, palpitations, SOB, syncope, or sudden changes in mental status. - Do not change or discontinue current prescriptions without first consulting health care provider Assessment & Plan (10/25/2023 2:00 PM EDT): - Aerobic exercise to reduce BP. Initial goal of 30 min walk 3-5x/week. Increase as tolerated. - low-sodium diet (goal: <2g/day) and heart healthy diet such as DASH to reduce BP and prevent ASCVD. - Home BP monitoring 1-2 x day with goal of <140/90. - Seek immediate medical attention for chest pain, palpitations, SOB, syncope, or sudden changes in mental status. - Do not change or discontinue current prescriptions without first consulting health care provider Assessment & Plan (07/20/2023 10:15 AM EST): Maintenance: BMP: up to date Lipid Panel: up to date ASCVD Risk:on simvastatin 40mg - Aerobic exercise to reduce BP. Initial goal of 30 min walk 3-5x/week. Increase as tolerated. - low-sodium diet (goal: <2g/day) and heart healthy diet such as DASH to reduce BP and prevent ASCVD. - Home BP monitoring 1-2 x day with goal of <140/90. - Seek immediate medical attention for chest pain, palpitations, SOB, syncope, or sudden changes in mental status. - Do not change or discontinue current prescriptions without first consulting health care provider Assessment & Plan (05/15/2023 3:48 PM EDT): - Aerobic exercise to reduce BP. Initial goal of 30 min walk 3-5x/week. Increase as tolerated. - low-sodium diet (goal: <2g/day) and heart healthy diet such as DASH to reduce BP and prevent ASCVD. - Home BP monitoring 1-2 x day with goal of <140/90. - Seek immediate medical attention for chest pain, palpitations, SOB, syncope, or sudden changes in mental status. - Do not change or discontinue current prescriptions without first consulting health care provider Assessment & Plan (03/27/2023 9:59 AM EDT): - Aerobic exercise to reduce BP. Initial goal of 30 min walk 3-5x/week. Increase as tolerated. - low-sodium diet (goal: <2g/day) and heart healthy diet such as DASH to reduce BP and prevent ASCVD. - Home BP monitoring 1-2 x day with goal of <140/90. - Seek immediate medical attention for chest pain, palpitations, SOB, syncope, or sudden changes in mental status. - Do not change or discontinue current prescriptions without first consulting health care provider Assessment & Plan (12/28/2022 2:40 PM EDT): - Aerobic exercise to reduce BP. Initial goal of 30 min walk 3-5x/week. Increase as tolerated. - low-sodium diet (goal: <2g/day) and heart healthy diet such as DASH to reduce BP and prevent ASCVD. - Home BP monitoring 1-2 x day with goal of <140/90. - Seek immediate medical attention for chest pain, palpitations, SOB, syncope, or sudden changes in mental status. - Do not change or discontinue current prescriptions without first consulting health care provider Class 1 obesity 06/14/2018 Lumbar radiculopathy 03/28/2018 Obstructive sleep apnea syndrome 03/28/2018 Assessment & Plan (10/25/2023 2:00 PM EDT): I will refer patient to sleep medicine Assessment & Plan (05/15/2023 3:46 PM EDT): Continue to use CPAP every day Continue to follow with sleep medicine Assessment & Plan (03/27/2023 9:58 AM EDT): Continue to use CPAP every night F/u with sleep medicine Tobacco dependence syndrome 03/28/2018 Assessment & Plan (03/27/2023 10:00 AM EDT): Smoking cessation counseling done Patient will try with bupropion Mixed sleep apnea 07/20/2016 Diastolic dysfunction 01/21/2015 Hyperlipidemia 04/03/2012 Assessment & Plan (06/25/2024 4:58 PM EST): Today extensive discussion was done about life style modifications I advise healthy diet (low calorie) and cardiovascular exercise Degeneration of lumbosacral intervertebral disc 01/23/2012 Asthma 01/19/2012 Chronic obstructive lung disease 01/19/2012 Assessment & Plan (05/15/2023 3:47 PM EDT): Patient reports he is up to date with lung cancer screening (low dose CT) Patient continue to try to quit smoking C/w same medications and f/u with pulmonology Assessment & Plan (03/27/2023 9:59 AM EDT): Continue with same medication regimen Continue to follow with pulmonary Resolved Problems Problem Noted Date Diagnosed Date Resolved Date Concussion with less than 1 hour loss of consciousness 02/10/2023 02/10/2023 Acute exacerbation of chroni c obstructive airways disease 02/10/2023 02/10/2023 Severe chronic obstructive pulmonary disease 02/10/2023 Type 2 diabetes mellitus 02/10/2023 Hypertensive disorder 02/10/20232022 Hypercholesterolemia 08/25/2022 023 Impaired fasting glucose 12/09/2014 Encounters Date Type Department Care Team Description 08/30/2024 2:15 PM EST Office Visit [address] [address] Audrey Roblero ANP Acute pain of left wrist (Primary Dx); 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 [address] [place] [phone] Alfred Murphy MD Acute pain of left wrist (Primary Dx); Right elbow pain; Acute pain of right knee 08/15/2024 10:00 AM EST Clinical Support [address] [address] Jasmina Coronado RN Chronic low back pain with bilateral sciatica, unspecified back pain laterality (Primary Dx) 08/15/[address] [phone] Jasmina Coronado RN BPI Scoring 08/15/2024 Travel 08/12/[address] [address] Ciara Garcia MD Other chronic pain 08/06/[address] [phone] Ciara Garcia MD 08/01/[address] [facility] [address] [place] [address] Ciara Garcia MD Other chronic pain 07/04/[address] [facility] [address] [place] [address] Ciara Garcia MD Other chronic pain 07/01/[address] [facility] [address] [place] [phone] Jasmina Coronado, RN telephone call 06/22/[address] [facility] [address] [place] [address] Ciara Garcia MD Cervicalgia 06/21/2024 11:15 AM EST Office Visit [facility] [address] [place] [phone] Ciara Garcia MD Hyperlipidemia, unspecified hyperlipidemia type (Primary Dx); Type 2 diabetes mellitus without complication, without long-term current use of insulin ([facility]); Primary hypertension; Encounter for immunization 06/20/2024 10:00 AM EST Clinical Support [facility] [address] [place] [phone] Jasmina Coronado, mexican food machine tender low back pain with bilateral sciatica, unspecified back pain laterality (Primary Dx) 06/20/[address] [facility] [address] [place] [phone] Ciara Garcia MD FYI 06/20/[address] [facility] [address] [place] [address] Jasmina Coronado, RN Other chronic pain 06/20/2024 Travel 06/20/[address] 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 [address] [place] [phone] Jason Hatfield MD Tobacco dependence 06/19/[address] [facility] [address] [place] [address] Ciara Garcia MD Tobacco dependence syndrome; Uncomplicated asthma, unspecified asthma severity, unspecified whether persistent; Chronic low back pain with bilateral sciatica, unspecified back pain laterality 06/10/[address] [facility] [address] [place] [address] Ciara Garcia MD Med Refill 06/10/[address] [facility] [address] [place] [address] Ciara Garcia MD Essential hypertension 06/10/[address] [facility] [address] [place] [address] Ciara Garcia MD Other chronic pain 06/03/2024 Refill [facility] [address] [place] [address] Ciara Garcia MD Cervicalgia 06/01/[address] [facility] [address] [place] [address] Ciara Garcia MD Cervicalgia; Tobacco dependence syndrome; Uncomplicated asthma, unspecified asthma severity, unspecified whether persistent from Last 3 Months Immunizations Name Administration Dates Next Due Hep B, adult 01/07/2008,08/02/2007,06/22/2007 Influenza injectable quadriv alent IIV4 with preservative 05/03/2017 Influenza injectable quadriv alent preservative free 05/15/2023,05/04/2022,05/09/2021,04/23,04/20/2020,06/03/2019,07/19/2018 ,06/24/2016 Influenza, High Dose Seasona l, Preservative Free 06/21/2024 Influenza, IIV3, injectable 04/21/2014, 1 Influenza, Split (incl. mare fied surface antigen) 06/12/2013 Jammie SARS-CoV-2 Vaccination 12/28/2017 Pfizer Covid-19 Vaccine 12+ 06/21/2024,1 08/12/2022,09/07/2020,08/17 Pfizer Covid-19 Vaccine 12+ Bivalent 05/04/2022 Pneumococcal Conjugate PCV 20 06/21/2024 Pneumococcal Polysaccharide PPSV23 11/04/2010 RSV Bivalent 07/20/2023 TD (adult), 2 Lf tetanus tox oid, preservative free, adsorbed 12/28/2017,06/28/2005 Tdap 06/12/2013 Zoster, Recombinant 09/21/2023,07/20/2023 Social History Tobacco Use Types Packs/Day Years Used Date Smoking Tobacco: Every Day Cigarettes 0.5 45 Passive Smoke Exposure: Current Smokeless Tobacco: Never Tobacco Cessation:Ready to Q uit: Not Asked; Counseling Given: Not Answered Depression Answer Date Recorded Patient Health Questionnaire-9 [...] Orientation Straight 05/16/2022 10 :16 AM EDT Last Filed Vital Signs Vital Sign Reading Time Taken Comments Blood Pressure 137/72 08/30/2024 2:34 PM EST Pulse 82 08/30/2024 2:34 PM EST Temperature 36.7 ??C (98 ??F) 08/30/2024 2:34 PM EST Respiratory Rate 16 08/30/2024 2:34 PM EST Oxygen Saturation 94% 08/30/2024 2:34 PM EST Inhaled Oxygen Concentration - - Weight 108 kg (238 lb 6.4 oz) 08/30/2024 2:34 PM EST Height 177.8 cm (5' 10 ) 08/21/2024 2:07 PM EST Body Mass Index 34.21 08/21/2024 2:07 PM EST Plan of Treatment Upcoming Encounters Date Type Department Care Team (Late st Contact Info) Description 09/13/2024 11:15 AM EST Office Visit [facility] [address] [place] [address] Gabriela Castañeda, OD [address] [place] [address] 09/26/2024 10:00 AM EDT Office Visit [facility] [address] [place] [address] Ciara Garcia MD [address] [place] [address] 11/12/2024 9:30 AM EDT Clinical Support [facility] [address] [place] [address] Jasmian Coronado, MARIBEL Health Maintenance Due Date Last Done Comments CT Colonography 1958 Colonoscopy 1958 Colorectal Cancer Screening 1960 FIT DNA/Cologuard 1958 FIT 1958 FOBT 1958 Sigmoidoscopy 1958 Diabetes: Foot Exam 1968 Hepatitis A Vaccines (1 of 2 - Risk 2-dose series) 1977 Lung Cancer Screening 2008 Depression Screening 12/29/2023 12/28/2022, 12/29/19 SDOH Screening 12/29/2023 12/28/2022 Diabetes: Urine Protein Screening 06/05/2024 06/05/2023 Lipid Panel 06/05/2024 06/05/2023, 10/07/2020 Diabetes: Hemoglobin A1C 09/19/2024 024, 10/25/2023, 03/27/2023, Additional history exists Eye Exam 06/12/2025 06/12/2023, 05/18, 06/12/2023, Additional history exists Alcohol/Substance Use Screening 08/30/2025 08/30/2024 Tobacco Screening 08/30/2025 08/30/2024 DTaP/Tdap/Td Vaccines (3 - Td or Tdap) 12/29/2027 12/28/2017, 06/12/2013, 06/28/2005 Hepatitis B Vaccines Completed 01/07/2008, 08/02/2007, 06/22/2007 RSV Patients and Patients Aged 60 years or older Completed 07/20/2023 Zoster Vaccines Completed 09/21/2023, 07/20/2023 Hepatitis C Screening Completed 12/19/2023 , 10/07/2020, 02/04/2020 COVID-19 Vaccine Completed 06/21/2024, , 05/04/2022, Additional history exists Influenza Vaccine Completed 06/21/2024, , 05/04/2022, Additional history exists Pneumococcal Vaccine: 50+ Years Completed 06/21/2024, 11/04/2010 HIB Vaccines Aged Out No longer eligi ble based on patient's age to complete this topic HPV Vaccines Aged Out No longer eligi ble based on patient's age to complete this topic IPV Vaccines Aged Out No longer eligi ble based on patient's age to complete this topic Meningococcal Vaccine Aged Out No humaira tucker eligible based on patient's age to complete this topic RSV under 20 months Aged Out No longe r eligible based on patient's age to complete this topic Rotavirus Vaccines Aged Out No longer eligible based on patient's age to complete this topic Procedures Procedure Name Priority Date/Time Associated Diagnosis Comments XR KNEE 4+ VIEWS RIGHT Routine 08/21/2024 3:08 PM EST Acute pain of right knee XR ELBOW 1-2 VIEWS RIGHT Routine 08/21/2024 3:08 PM EST Right elbow pain XR WRIST 3+ VIEWS LEFT Routine 08/21/2024 3:08 PM EST Acute pain of left wrist POCT HERBER-14 URINE DRUG SCREEN Routine 08/15/2024 10:04 AM EST Chronic low back pain with bilateral sciatica, unspecified back pain laterality POCT GLYCATED HEMOGLOBIN, TOTAL Routine 06/21/2024 11:48 AM EST Type 2 diabetes mellitus without complication, without long-term current use of insulin (CMS/HCC) POCT GLUCOSE Routine 06/21/2024 11:46 AM EST Type 2 diabetes mellitus without complication, without long-term current use of insulin (CMS/HCC) POCT HERBER-14 URINE DRUG SCREEN Routine 06/20/2024 10:07 AM EST Chronic low back pain with bilateral sciatica, unspecified back pain laterality HEPATITIS PANEL, GENERAL Routine 12/19/2023 9:17 AM EDT ALBUMIN, RANDOM URINE W/CREATININE Routine 06/05/2023 2:50 PM EST LIPID PANEL, STANDARD Routine 06/05/2023 2:50 PM EST Preventative health care from Last 3 Months or Most Recently Relevant to Health Maintenance Results * XR Knee 4+ Views Right (08/21/2024 3:08 PM EST) Anatomical Region Laterality Modality Lower Extremities, Knee Right Radiogra phic Imaging 08/21/2024 3:08 PM EST Narrative 08/21/2024 4:28 PM EST ?[facility] ?[address] ?[place] [address] ?XRay Report ? Signed ? Patient: Shelly,Efraín S Jr ?MR#: [id number] ?? [id number] ? : 1960 ?Acct:[id number] ? Age/Sex: 63 / M ?ADM Date: 02/05/25 ? Loc: [facility]X ? Attending Dr: Alfred Murphy MD ? Ordering Physician: Alfred Murphy MD ?? Date of Service: 08/21/24 ?? Procedure(s): XR knee RT 4V ?? Accession Number(s): [id number] ? cc: Katherine,Alfred SOLANO ? EXAMINATION: ?? XR KNEE, RIGHT ? CLINICAL INFORMATION: ?? acute pain, swelling and decreased ROM after a fall ? COMPARISON: ?? None available. ? TECHNIQUE: ?? Four views of the right knee. ? FINDINGS: ?? There is mild loss of patellofemoral joint space without any visible ?? acute fracture, dislocation or subluxation. There is mild suprapatellar ?? spurring. No joint effusion seen. No bony erosive changes. ? XR/XR knee RT 4V ?? IMPRESSION: ?? Small superior patellar spur. No visible acute fracture or dislocation ?? seen. ? Electronically signed by: ??Kelton Loera MD ??08/21/2024 04:25 PM EST RP ? Dictated By: ?Kelton Loera MD ? Signed By: ?<Electronically signed by Kelton Loera MD in OV> ?08/21/24 1625 ? DD/ 1508 ? TD/TT: 08/21/24 1600 ? Load Blocker: MSM ? Procedure Note Donflacoter, Image - 08/21/[address] [address] XRay Report Signed Patient: Efraín Bravo [facility]#: [id number] : 9Acct:[id number] Age/Sex: 63 / MADM Date: 08/21/24 [facility]: [facility] [facility] Att[facility] Dr: Alfred Murphy MD Ordering Physician: Alfred Murphy MD Date of Service: 08/21/24 Procedure(s): XR knee RT 4V Accession Number(s): [id number] cc: Alfred Murphy MD EXAMINATION: XR KNEE, RIGHT CLINICAL INFORMATION: acute pain, swelling and decreased ROM after a fall COMPARISON: None available. TECHNIQUE: Four views of the right knee. FINDINGS: There is mild loss of patellofemoral joint space without any visible acute fracture, dislocation or subluxation. There is mild suprapatellar spurring. No joint effusion seen. No bony erosive changes. XR/XR knee RT 4V IMPRESSION: Small superior patellar spur. No visible acute fracture or dislocation seen. Electronically signed by: Kelton Loera MD 08/21/2024 04:25 PM EST RP Dictated By: Kelton Loera MD Signed By: <Electronically signed by Kelton Loera MD in OV> 08/21/24 1625 DD/ 1508 TD/TT: 08/21/24 1600 Load Blocker: SHERINE us Alfred Name IMSotero XR PROCEDURES Edited Result - Final * XR Wrist 3+ Views Left (08/21/2024 3:08 PM EST) Anatomical Region Laterality Modality Upper Extremities, Wrist Left Radiogr aphic Imaging 08/21/2024 3:08 PM EST Narrative 08/21/2024 4:28 PM EST ?[facility] ?[address] ?[place] [address] ?XRay Report ? Signed ? Patient: Efraín Bravo Jr ?MR#: [id number] ?? [id number] ? : 1960 ?Acct:[id number] ? Age/Sex: 63 / M ?ADM Date: 08/21/24 ? Loc: HO.HHCX ? Attending Dr: Alfred Murphy MD ? Ordering Physician: Alfred Murphy MD ?? Date of Service: 08/21/24 ?? Procedure(s): XR wrist LT min 3V ?? Accession Number(s): [id number] ? cc: Alfred Murphy MD ? EXAMINATION: ?? XR WRIST, LEFT ? CLINICAL INFORMATION: ?? acute pain, swelling and decreased ROM after a fall ? COMPARISON: ?? None relevant. ? TECHNIQUE: ?? PA, lateral, and oblique views of the left wrist. ? FINDINGS: ?? No definite fracture, dislocation, or suspicious bone lesion. ?? There is normal alignment of the carpal rows. Carpal bones are intact. ?? Mild arthritis of the STT joints and first CMC joint. ?? Mild radiocarpal joint space narrowing. ? Normal-appearing soft tissues. ? XR/XR wrist LT min 3V ?? IMPRESSION: ?? No acute posttraumatic abnormality. ? Electronically signed by: ??Skip Araya MD ??08/21/2024 04:25 PM EST RP ? Dictated By: ?Skip Araya MD ? Signed By: ?<Electronically signed by Skip Araya MD in OV> ?08/21/24 1625 ? DD/ 1508 ? TD/TT: 08/21/24 1600 ? Load Blocker: ? Procedure Note Donotuseinterpreter, Image - 08/21/2024 [facility] [address] [place] [address] XRay Report Signed Patient: Efraín Bravo [facility]#: [id number] : 9Acct:[id number] Age/Sex: 63 / MADM Date: 08/21/24 Loc: HO.HHCX Attending Dr: Alfred Murphy MD Ordering Physician: Alfred Murphy MD Date of Service: 08/21/24 Procedure(s): XR wrist LT min 3V Accession Number(s): [id number] cc: Alfred Murphy MD EXAMINATION: XR WRIST, LEFT CLINICAL INFORMATION: acute pain, swelling and decreased ROM after a fall COMPARISON: None relevant. TECHNIQUE: PA, lateral, and oblique views of the left wrist. FINDINGS: No definite fracture, dislocation, or suspicious bone lesion. There is normal alignment of the carpal rows. Carpal bones are intact. Mild arthritis of the STT joints and first CMC joint. Mild radiocarpal joint space narrowing. Normal-appearing soft tissues. XR/XR wrist LT min 3V IMPRESSION: No acute posttraumatic abnormality. Electronically signed by: Skip Araya MD 08/21/2024 04:25 PM EST Dictated By: Skip Araya MD Signed By: <Electronically signed by Skip Araya MD in OV> 08/21/24 1625 DD/ 1508 TD/TT: 08/21/24 1600 Load Blocker: Alfred Murphy MD IMG XR PROCEDURES Edited Result - Final * XR Elbow 1-2 Views Right (08/21/2024 3:08 PM EST) Anatomical Region Laterality Modality Upper Extremities, Elbow Right Radiogr aphic Imaging 08/21/2024 3:08 PM EST Narrative 08/21/2024 4:26 PM EST ?[facility] ?[address] ?[place] [address] ?XRay Report ? Signed ? Patient: Shelly,Efraín S Jr ?MR#: [id number] ?? [id number] ? : 1960 ?Acct:[id number] ? Age/Sex: 63 / M ?ADM Date: 08/21/24 ? Loc: HO.HHCX ? Attending Dr: Alfred Murphy MD ? Ordering Physician: Alfred Murphy MD ?? Date of Service: 08/21/24 ?? Procedure(s): XR elbow RT 2V ?? Accession Number(s): [id number] ? cc: Alfred Murphy MD ? EXAMINATION: ?? XR ELBOW, RIGHT ? CLINICAL INFORMATION: ?? acute pain, swelling and decreased ROM after a fall ? COMPARISON: ?? 09/17/2015. ? TECHNIQUE: ?? AP, lateral, and oblique views of the right elbow. ? FINDINGS: ?? No fracture, dislocation, or joint effusion. Normal alignment. ?? 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 ?? Spurring of the medial and lateral condyles. ?? Moderate size olecranon spur. ? No soft tissue abnormality. ? XR/XR elbow RT 2V ?? IMPRESSION: ?? 1. No acute bony abnormalities. No joint effusion. ?? 2. Arthritic/enthesopathic changes ? Electronically signed by: ??Skip Araya MD ??08/21/2024 04:23 PM EST RP ? Dictated By: ?Skip Araya MD ? Signed By: ?<Electronically signed by Skip Araya MD in OV> ?08/21/24 1623 ? DD/ 1508 ? TD/TT: 08/21/24 1600 ? Load Blocker: ? Procedure Note Mary Casillas - 08/21/2024 [facility] [address] [facility] [place] [address] XRay Report Signed Patient: Efraín Bravo JrMR#: [id number] : 9Acct:[id number] Age/Sex: 63 / MADM Date: 08/21/24 Loc: HO.HHCX Attending Dr: Alfred Murphy MD Ordering Physician: Alfred Murphy MD Date of Service: 08/21/24 Procedure(s): XR elbow RT 2V Accession Number(s): [id number] cc: Alfred Murphy MD EXAMINATION: XR ELBOW, RIGHT CLINICAL INFORMATION: acute pain, swelling and decreased ROM after a fall COMPARISON: 09/17/2015. TECHNIQUE: AP, lateral, and oblique views of the right elbow. FINDINGS: No fracture, dislocation, or joint effusion. Normal alignment. 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 Spurring of the medial and lateral condyles. Moderate size olecranon spur. No soft tissue abnormality. XR/XR elbow RT 2V IMPRESSION: 1. No acute bony abnormalities. No joint effusion. 2. Arthritic/enthesopathic changes Electronically signed by: Skip Araya MD 08/21/2024 04:23 PM EST Dictated By: Skip Araya MD Signed By: <Electronically signed by Skip Araya MD in OV> 08/21/24 1623 DD/ 1508 TD/TT: 08/21/24 1600 Load Blocker: us Alfred Murphy MD IMG XR PROCEDURES Edited Result - Final * POCT HERBER-14 Urine Drug Screen (08/15/2024 10:04 AM EST) Only the most recent of2 resultswithin the time period is included. Oxycodone Screen, Urine Positive Urine Urine specimen obtained by clean catch procedure / Unknown 08/15/2024 10:04 AM EST Jasmina Santos RN - 08/15/2024 10:04 AM EST UTOX cup Lot#[id number] Exp. 04/10/26 Internal Pass Control us Ciara Celaya MD POINT OF CARE TEST EN TER/EDIT ORDERABLES Final Result * (ABNORMAL) POCT HGB A1C (06/21/2024 11:48 AM EST) Hemoglobin A1C 7.0(A) 4.0 - 6.0 % QC Media Lot # [id number] Lot# Expiration Date [id number] Blood 06/21/2024 11:4 8 AM EST Ciara Celaya MD POINT OF CARE TEST EN TER/EDIT ORDERABLES Final Result * POCT Glucose (06/21/2024 11:46 AM EST) Glucose Blood, POC 188 60 - 200 mg/dL QC Media Lot # [id number] Lot# Expiration Date [id number] Blood Capillary blood specimen / Unknown 06/21/2024 11:46 AM EST Ciara Celaya MD POINT OF CARE TEST EN TER/EDIT ORDERABLES Final Result * Hepatitis Panel, General (12/19/2023 9:17 AM EDT) Hepatitis A IgM Nonreactive Nonreactive [facility] Comment:IgM antibodies to [place] V not detected; does not exclude earlyacute or recovered HAV infection. ~Hepatitis B Surface Antibody REACTIVE Nonreactive [facility] Comment:REACTIVE: > 11.99 mI U/mL Hepatitis B Core Antibody Nonreactive Nonreactive [facility] Hepatitis C Antibody Nonreactive Nonreactive [facility] Comment:Antibodies to HCV no t detected; does not exclude early acuteHCV infection. Hepatitis B Surface Ag Negative Negative [facility] 12/19/2023 9:17 AM EDT 12/19/2023 9:17 AM EDT Generic External Data Provider LAB BLOOD ORDERAB LES Final Result [facility] [address] [place] [phone] * (ABNORMAL) Albumin, Random Urine W/Creatinine (06/05/2023 2:50 PM EST) Creatinine, Urine 301.05 mg/dL [facility] Microalbumin Urine 248.0 mg/L H [facility] Microalbum Creatinine Ratio Ur 82.3(H) <30 ug/mg cr [facility] Comment:Albumin/Creatinine R atio Reference Ranges: Normal: < 30 ug/mg creatinine Microalbuminuria: 30 - 300 ug/mg creatinineClinical Albuminuria: > 300 ug/mg creatinine 06/05/2023 2:50 PM EST 06/05/2023 4:05 PM EST us Ciara Celaya MD LAB URINE ORDERABLES Final Result [facility] [address] [place] [phone] * Lipid Panel, Standard (06/05/2023 2:50 PM EST) Triglycerides 116 <150 mg/dL [facility] Comment:Desirable Triglyceri de: less than 150 mg/dLBorderline High Triglyceride 150-199 mg/dLHigh Triglyceride: 200-499 mg/dLVery High Triglyceride: greater than or equal to 5OO mg/dL Cholesterol 183 <200 mg/dL [facility] Comment:Desirable Cholestero l: less than 200 mg/dLBorderline High Cholesterol: 200-239 mg/dLHigh Cholesterol: greater than 239 mg/dL LDL Cholesterol Calculated 95 <100 mg/dL [facility] Comment:Desirable LDL: less than 100 mg/dLNear Optimal/Above Optimal LDL: 110- 129 mg/dLBorderline High LDL: 130-159 mg/dLHigh LDL: 160-189 mg/dLVery High LDL: greater than or equal to 190 mg/dL HDL Cholesterol 65 >40 mg/dL [facility] Comment:Desirable HDL: great er than 40 mg/dL Note: This HDL assay may give artificially low results in patients with liver disease. Blood Venous blood specimen / Unknown 06/05/2023 2:50 PM EST 06/05/2023 4:05 PM EST us Ciara Cealya MD LAB BLOOD ORDERABLES Final Result [facility] [address] [place] [address] [phone] from Last 3 Months or Most Recently Relevant to Health Maintenance Insurance MEDICARE Member Subscriber Plan / Payer (Ef fective 2022-Present) Name:Efraín Bravo Member ID:[id number] Relation to Subscriber:Self Name:Efraín Bravo Subscriber ID:[id number] Payer ID:STATE Group ID:Not on file Type:Medicare Address: [facility], [facility]. [address] [phone] [facility] Care Teams Tank Farm Attendant Relationship Specialty Start Date End Date Ciara Garcia MD [address] [place] [phone] PCP - General Family Medicine 06/04/19
--- OUTSIDE RECORDS SUMMARY | 2024-08-30 15:29 | XMS_ITS | Encounter Summary ---
Author Organization [employer] Address [address] [facility] 7t [place] [address] Care Team Providers Care Exchange Administrator Name Role Phone Ciara Garcia MD Primary Care Provide r Encounter Details Date Type Department Care Team (Latest Contact Info) Description 08/30/2024 Travel Social History Tobacco Use Types Packs/Day Years [...] Office Visit [facility] OPTOMETRY [address] [place], [place] [phone] Gabriela Castañeda, OD [address] [place] [address] 09/26/2024 10:00 AM EDT Office Visit [facility] MEDICINE [address] [place], [place] [phone] Ciara Garcia MD [address] [place] [address] 11/12/2024 9:30 AM EDT Clinical Support [facility] MEDICINE [address] [place] [phone] Jasmina Coronado, RN documented as of this encounter Visit Diagnoses Not on filedocumented in this encounter Additional Health Concerns Assessment Noted Time PHQ-9 Depression Total Score: 0 12/29/19 23 11:51 AM EDT documented as of this encounter Care Teams Exchange Administrator Relationship Specialty Start Date End Date Ciara Garcia MD [address] [place] [address] [phone] PCP - General Family Medicine 06/04/19 documented as of this encounter
--- OUTSIDE RECORDS SUMMARY | 2024-08-30 15:29 | XMS_ITS | Encounter Summary ---
Author Organization [employer] Address [address] [facility] 7t [place] [address] Care Team Providers Care Windchill Administrator Name Role Phone Ciara Garcia MD Primary Care Provide r Reason for Visit * Reason Comments left wrist, right elbow and right knee p ain Encounter Details Date Type Department Care Team (Late st Contact Info) Description 08/21/2024 2:20 PM EST Office Visit [facility] [address] [place] [address] Name, MD Alfred [address] [place] [address] Acute pain of left wrist (Primary Dx); Right elbow pain; Acute pain of right knee Social History Tobacco Use Types Packs/Day Years [...] AM EDT documented as of this encounter Last Filed Vital Signs Vital Sign Reading Time Taken Comments Blood Pressure 135/76 08/21/2024 2:07 PM EST Pulse 79 08/21/2024 2:07 PM EST Temperature 37.1 ??C (98.8 ??F) 08/21/2024 2:07 PM ES T Respiratory Rate 16 08/21/2024 2:07 PM EST Oxygen Saturation 96% 08/21/2024 2:07 PM EST Inhaled Oxygen Concentration - - Weight 108 kg (239 lb) 08/21/2024 2:07 PM EST Height 177.8 cm (5' 10 ) 08/21/2024 2:07 PM EST Body Mass Index 34.29 08/21/2024 2:07 PM EST documented in this encounter Progress Notes * Alfred Murphy, - 08/21/2024 2:20 PM EST Subjective Patient ID: Efraín Bravo is a 63 y.o. male who presents for left wrist, right elbow and right knee pain. Patient presents with pain since the weekend after a fall on icy sidewalk Patient has bruising of the right knee and swelling with decreased ROM of the left wrist and right elow No trauma to the head and no LOC Review of Systems Constitutional: Negative for chills and fever. Musculoskeletal: See HPI Neurological: Negative for syncope, light-headedness and headaches. Visit Vitals BP 135/76 (BP Location: Right arm, Patient Position: Sitting, BP Cuff Size: Large adult) Pulse 79 Temp 98.8 ??F (37.1 ??C) (Oral) Resp 16 Ht 5' 10 (1.778 m) Wt 239 lb (108 kg) SpO2 96% BMI 34.29 kg/m?? Smoking Status Every Day BSA 2.31 m?? Objective Physical Exam Constitutional: General: He is not in acute distress. Appearance: He is not toxic-appearing. Cardiovascular: Rate and Rhythm: Normal rate and regular rhythm. Pulmonary: Effort: Pulmonary effort is normal. No respiratory distress. Musculoskeletal: Comments: Mild swelling of the left wrist. Decreased range of motion. Decreased range of motion and tenderness with active and passive range of motion of the right elbowand right knee. I did x-rays of the right knee, right elbow and left wrist. I did not see any fracture. Official reading is pending. Assessment/Plan Diagnoses and all orders for this visit: Acute pain of left wrist Comments: X-rays today are negative for fracture. I will call the patient if the official reading is different than mine. I recommended rest, ice, elevation of the affected joints. Orders: - XR Wrist 3+ Views Left; Future Right elbow pain - XR Elbow 1-2 Views Right; Future Acute pain of right knee - XR Knee 4+ Views Right; Future documented in this encounter Plan of Treatment Upcoming Encounters Date Type Department Care Team (Late st Contact Info) Description 09/13/2024 11:15 AM EST Office Visit [facility] OPT[facility] [address] [place] [address] Gabriela Castañeda, OD [address] [place] [address] 09/26/2024 10:00 AM EDT Office Visit [facility] MEDICINE [address] [place] [address] Ciara Garcia MD [address] [place] [address] 11/12/2024 9:30 AM EDT Clinical Support [facility] [address] [place] [phone] Jasmina Coronado RN documented as of this encounter Procedures Procedure Name Priority Date/Time Associated Diagnosis Comments XR KNEE 4+ VIEWS RIGHT Routine 08/21/2024 3:08 PM EST Acute pain of right knee XR WRIST 3+ VIEWS LEFT Routine 08/21/2024 3:08 PM EST Acute pain of left wrist XR ELBOW 1-2 VIEWS RIGHT Routine 08/21/2024 3:08 PM EST Right elbow pain documented in this encounter Results * XR Knee 4+ Views Right (08/21/2024 3:08 PM EST) Anatomical Region Laterality Modality Lower Extremities, Knee Right [facility] Imaging 08/21/2024 3:08 PM EST Narrative 08/21/2024 4:28 PM EST ?[facility] ?[address] ?[place] [address] ?XRay Report ? Signed ? Patient: Efraín Bravo Jr ?MR#: [id number] ?? [id number] ? : 1960 ?Acct:[id number] ? Age/Sex: 63 / M ?ADM Date: 08/21/24 ? Loc: HO.HHCX ? Attending Dr: Alfred Murphy MD ? Ordering Physician: Alfred Murphy MD ?? Date of Service: 08/21/24 ?? Procedure(s): XR knee RT 4V ?? Accession Number(s): [id number] ? cc: Alfred Murphy MD ? EXAMINATION: ?? XR KNEE, RIGHT ? [...] 04:25 PM EST RP ? Dictated By: ?Luz Maria,Kelton S MD ? Signed By: ?<Electronically signed by Kelton S MD Luz Maria in OV> ?08/21/24 1625 ? DD/ 1508 ? TD/TT: 08/21/24 1600 ? Marketing Performance Analyst: MSM ? Procedure Note Donotkimberlyinterpreter, Image - 08/21/[address] [address] XRay Report Signed Patient: Efraín Bravo [facility]#: [id number] : 9Acct:[id number] Age/Sex: 63 / MADM Date: 08/21/24 Loc: HO.HHCX Attending Dr: Alfred Murphy MD Ordering Physician: Alfred Murphy MD Date of Service: 08/21/24 Procedure(s): XR knee RT 4V Accession Number(s): [id number] cc: Alfred Murphy MD EXAMINATION: XR KNEE, [...] Kelton Loera MD 08/21/2024 04:25 PM EST Dictated By: Kelton Loera MD Signed By: <Electronically signed by Kelton Loera MD in OV> 08/21/24 1625 DD/ 1508 TD/TT: 08/21/24 1600 Marketing Performance Analyst: [facility] Alfred Murphy MD IM XR PROCEDURES Edited Result - Final * XR Elbow 1-2 Views Right (08/21/2024 3:08 PM EST) Anatomical Region Laterality Modality Upper Extremities, Elbow Right Radiogr aphic Imaging 08/21/2024 3:08 PM EST Narrative 08/21/2024 4:26 PM EST ?[facility] ?[address] ?[place] [address] ?XRay Report ? Signed ? Patient: Shelly,Efraín S Jr ?MR#: [id number] ?? [id number] ? : 1960 ?Acct:[id number] ? Age/Sex: 63 / M ?ADM Date: 08/21/24 ? Loc: HO.HHCX ? Attending Dr: Aflred Murphy MD ? Ordering Physician: Alfred Murphy MD ?? Date of Service: 08/21/24 ?? Procedure(s): XR elbow RT 2V ?? Accession Number(s): [id number] ? cc: Alfred Murphy MD ? EXAMINATION: [...] DD/ 1508 ? TD/TT: 08/21/24 1600 ? Marketing Performance Analyst: ? Procedure Note Mary Casillas - 08/21/[address] [address] XRay Report Signed Patient: Efraín Bravo MR#: [id number] : 9Acct:[id number] Age/Sex: 63 / MADM Date: 08/21/24 Loc: HO.HHCX Attending Dr: Alfred Murphy MD Ordering Physician: Alfred Murphy MD Date of Service: 08/21/24 Procedure(s): XR elbow RT 2V Accession Number(s): [id number] cc: Alfred Murphy MD EXAMINATION: XR ELBOW, [...] 08/21/24 1623 DD/ 1508 TD/TT: 08/21/24 1600 Marketing Performance Analyst: Alfred Murphy MD IM XR PROCEDURES Edited Result - Final * XR Wrist 3+ Views Left (08/21/2024 3:08 PM EST) Anatomical Region Laterality Modality Upper Extremities, Wrist Left Radiogr aphic Imaging 08/21/2024 3:08 PM EST Narrative 08/21/2024 4:28 PM EST ?[facility] ?[address] ?[place] [address] ?XRay Report ? Signed ? Patient: Shelly,Efraín S Jr ?MR#: [id number] ?? [id number] ? : 1960 ?Acct:[id number] ? Age/Sex: 63 / M ?ADM Date: 02/05/25 ? Loc: HO.HHCX ? Attending Dr: Alfred Murphy MD ? Ordering Physician: Alfred Murphy MD ?? Date of Service: 08/21/24 ?? Procedure(s): XR wrist LT min 3V ?? Accession Number(s): [id number] ? cc: Alfred Murphy MD ? EXAMINATION: [...] DD/ 1508 ? TD/TT: 08/21/24 1600 ? Marketing Performance Analyst: ? Procedure Note Vinny, Image - 08/21/2024 [place] [address] XRay Report Signed Patient: Efraín Bravo [facility]#: [id number] : 9Acct:[id number] Age/Sex: 63 / MADM Date: 08/21/24 Loc: HO.HHCX Attending Dr: Alfred Murphy MD Ordering Physician: Alfred Murphy MD Date of Service: 08/21/24 Procedure(s): XR wrist LT min 3V Accession Number(s): [id number] cc: Alfred Murphy MD EXAMINATION: XR WRIST, [...] 08/21/24 1625 DD/ 1508 TD/TT: 08/21/24 1600 Marketing Performance Analyst: us Alfred Name IMG XR PROCEDURES Edited Result - Final documented in this encounter Visit Diagnoses Diagnosis Acute pain of left wrist- Primary Right elbow pain Pain in joint, upper arm Acute pain of right knee documented in this encounter Additional Health Concerns Assessment Noted Time PHQ-9 Depression Total Score: 0 12/29/19 23 11:51 AM EDT documented as of this encounter Care Teams Windchill Administrator Relationship Specialty Start Date End Date Ciara Garcia MD [address] [place] [phone] PCP - General Family Medicine 06/04/19 documented as of this encounter
--- OUTSIDE RECORDS SUMMARY | 2024-08-30 15:29 | XMS_ITS | Encounter Summary ---
Author Organization [email or web address] Address [address] [facility] 7 [place] [address] Care Team Providers Care Graphics Edit Technician Name Role Phone Ciara Garcia MD Primary Care Provide r Reason for Visit * Reason Onset Date Comments Med Refill 08/01/2024 Encounter Details Date Type Department Care Team ([facility] st Contact Info) Description 08/01/2024 Refill [facility] MEDICINE [address] [place] [address] Ciara Garcia MD [address] [place] [address] Other chronic pain Social History Tobacco Use Types Packs/Day Years [...] encounter Miscellaneous Notes * Telephone Encounter - John Coronado RN - 08/06/2024 3:50 PM EST Request has been forwarded to PCP today, awaiting response. * Telephone Encounter - Sam Hammond - 08/06/2024 3:48 PM EST TC from pt requesting fo rit to be sent to [facility]/pharmacy #[id number] [place], [place] - [address] [place] [address] Due to the other pharmacy not having medication in stock. IF any questions contact pt at [phone] * Addendum Note - John Coronado RN - 08/06/2024 12:34 PM ESTAddended by: JOHN CORONADO on: 08/06/2024 12:34 PM Modules accepted: Orders * Telephone Encounter - John Coronado RN - 08/06/2024 12:31 PM EST TC to [facility], spoke with Ashley, confirmed OxyContin RX sent for 08/05/24 was not filled d/t insufficient stock. Requested RX be cancelled. * Telephone Encounter - Anette Alexander - 08/06/2024 11:33 AM EST Tc from pt regarding medication oxyCODONE ER (OxyCONTIN) 80 MG 12 hr tablet. Pt is requesting script to be sent to [facility]/pharmacy #[id number] - [place] - [address] [facility] due to [facility] #[id number] not having medication in stock. * Telephone Encounter - Anette Alexander - 08/01/2024 1:17 PM EST TC from pt requesting medication refill. Medications needing refill : oxyCODONE ER (OxyCONTIN) 80 MG 12 hr tablet To be sent to: [facility]/pharmacy #[id number] - [place] - [address] [place] [address] documented in this encounter Plan of Treatment Upcoming Encounters Date Type Department Care Team (Late st Contact Info) Description 09/13/2024 11:15 AM EST Office Visit [facility] OPTOMETRY [address] [place] [address] Gabriela Castañeda, OD [address] [place] [address] 09/26/2024 10:00 AM EDT Office Visit [facility] MEDICINE [address] [place] [address] Ciara Garcia MD [address] [place] [address] 11/12/2024 9:30 AM EDT Clinical Support [facility] MEDICINE [address] [place] [phone] John Coronado RN documented as of this encounter Visit Diagnoses Diagnosis Other chronic pain documented in this encounter Additional Health Concerns Assessment Noted Time PHQ-9 Depression Total Score: 0 12/29/19 23 11:51 AM EDT documented as of this encounter Care Teams Graphics Edit Technician Relationship Specialty Start Date End Date Ciara Garcia MD [address] [place] [phone] PCP - General Family Medicine 06/04/19 documented as of this encounter
--- OUTSIDE RECORDS SUMMARY | 2024-08-30 15:29 | XMS_ITS | Encounter Summary ---
Author Organization [facility] Address [address] [place] [address] 7t [place] [address] Care Team Providers Care Organization Development Consultant Name Role Phone Ciara Garcia MD Primary Care Provide r Encounter Details Date Type Department Care Team (Late st Contact Info) Description 04/17/2023 Telephone [facility] MEDICINE 230 [place] [address] Ciara Garcia MD 230 [place] [address] Social History Tobacco Use Types Packs/Day Years [...] Description 09/13/2024 11:15 AM EST Office Visit [facility] OPTOMETRY [address] [place] [address] Gabriela Castañeda, OD 267 [place] [address] 09/26/2024 10:00 AM EDT Office Visit [facility] MEDICINE [address] [place] [address] Ciara Garcia MD [address] [place] [address] 11/12/2024 9:30 AM EDT Clinical Support [address] [address] Jasmina Coronado RN documented as of this encounter Visit Diagnoses Not on filedocumented in this encounter Additional Health Concerns Assessment Noted Time PHQ-9 Depression Total Score: 0 12/29/19 23 11:51 AM EDT documented as of this encounter Care Teams Organization Development Consultant Relationship Specialty Start Date End Date Ciara Garcia MD [address] [place] [address] PCP - General Family Medicine 06/04/19 documented as of this encounter
--- OUTSIDE RECORDS SUMMARY | 2024-08-30 15:29 | XMS_ITS | Encounter Summary ---
Author Organization Number [employer] Address [address] [facility] 7 [place] [address] Care Team Providers Care Dry House Worker Name Role Phone Ciara Garcia MD Primary Care Provide r Reason for Visit * Reason Onset Date Comments Med Refill 08/12/2024 Encounter Details Date Type Department Care Team ([facility] st Contact Info) Description 08/12/2024 Refill [facility] MEDICINE [address] [place] [address] Ciara Garcia MD 230 [place] [address] Other chronic pain Social History Tobacco Use [...] as of this encounter Miscellaneous Notes * Addendum Note - John Coronado RN - 08/15/2024 11:50 AM ESTAddended by: JOHN CORONADO on: 08/15/2024 11:50 AM Modules accepted: Orders * Telephone Encounter - John Coronado RN - 08/15/2024 11:45 AM EST TC to [facility], spoke with Lisa, clarified Oxycontin RX for today was not filled d/t no inventory. Requested RX be cancelled. * Telephone Encounter - Sam Hammond - 08/15/2024 11:12 AM EST TC from pt Spouse requesting for medication script to be sent to [facility]/pharmacy #[id number] - [address] Due to the Pharmacy that they first sent it to not having the medication. If any questions contact pt Spouse at [phone] * Telephone Encounter - Carlos Barnes - 08/12/2024 11:45 AM EST TC from pt requesting medication refill. Medications needing refill : oxyCODONE ER (OxyCONTIN) 80 MG 12 hr tablet To be sent to: [facility]/pharmacy #[id number] documented in this encounter Plan of Treatment Upcoming Encounters Date Type Department Care Team (Late st Contact Info) Description 09/13/2024 11:15 AM EST Office Visit [facility] OPTOMETRY [address] [place], [place] [phone] Garry Gabriela, OD 267 [place] [address] 09/26/2024 10:00 AM EDT Office Visit [facility] MEDICINE [address] [place] [address] Ciara Garcia MD [address] [place] [address] 11/12/2024 9:30 AM EDT Clinical Support [facility] MEDICINE [address] [place] [address] John Coronado RN documented as of this encounter Visit Diagnoses Diagnosis Other chronic pain documented in this encounter Additional Health Concerns Assessment Noted Time PHQ-9 Depression Total Score: 0 12/29/19 23 11:51 AM EDT documented as of this encounter Care Teams Dry House Worker Relationship Specialty Start Date End Date Ciara Garcia MD [address] [place] [phone] PCP - General Family Medicine 06/04/19 documented as of this encounter
--- OUTSIDE RECORDS SUMMARY | 2024-08-30 15:29 | XMS_ITS | Encounter Summary ---
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 I have magnusofelia truong 05/04/[address] you [...] 6.4 oz) 08/30/2024 2:34 PM EST Height - - Body Mass Index 34.21 08/21/2024 2:07 PM EST documented in this encounter Plan of Treatment Upcoming Encounters Date Type Department Care Team (Late st Contact Info) Description 09/13/2024 11:15 AM EST Office Visit [facility] OPTOMETRY [address] [place] [address] Gabriela Castañeda, OD 267 [place] [address] 09/26/2024 10:00 AM EDT Office Visit [facility] MEDICINE 230 [place] [address] Ciara Garcia MD 230 [place] [address] 11/12/2024 9:30 AM EDT Clinical Support [facility] MEDICINE 230 [place] [address] Jasmina Coronado RN documented as of this encounter Visit Diagnoses Diagnosis Acute pain of left wrist- 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
--- OUTSIDE RECORDS SUMMARY | 2024-08-30 15:29 | XMS_ITS | Encounter Summary ---
Author Organization [employer] Address 75 [facility] 7t [place] [address] Care Team Providers Care Powdered Sugar Supervisor Name Role Phone Ciara Garcia MD Primary Care Provide r Encounter Details Date Type Department Care Team ([facility] st Contact Info) Description 08/06/2024 Telephone [facility] MEDICINE 230 [place] [address] Ciara Garcia MD 230 [place] [address] Social History Tobacco Use Types Packs/Day Years [...] Description 09/13/2024 11:15 AM EST Office Visit [facility] OPTOMETRY 267 [place], [place] [phone] Gabriela Castañeda, OD 267 [place] [address] 09/26/2024 10:00 AM EDT Office Visit [facility] MEDICINE [address] [place] [address] Ciara Garcia MD [address] [place] [address] 11/12/2024 9:30 AM EDT Clinical Support [facility] MEDICINE [address] [place] [address] Jasmina Coronado, MARIBEL documented as of this encounter Visit Diagnoses Not on filedocumented in this encounter Additional Health Concerns Assessment Noted Time PHQ-9 Depression Total Score: 0 12/29/19 23 11:51 AM EDT documented as of this encounter Care Teams Powdered Sugar Supervisor Relationship Specialty Start Date End Date Ciara Garcia MD [address] [place] [phone] PCP - General Family Medicine 06/04/19 documented as of this encounter
--- OUTSIDE RECORDS SUMMARY | 2024-08-30 15:29 | XMS_ITS | Encounter Summary ---
Author Organization [employer] [facility] Address [address] [place] [address] 7t [place] [address] Care Team Providers Care Director Of Training Name Role Phone Ciara Garcia MD Primary Care Provide r Reason for Visit * Reason Onset Date Comments Nurse Triage 02/09/2023 Encounter Details Date Type Department Care Team ([facility] st Contact Info) Description 02/09/2023 Telephone [facility] MEDICINE 230 [place] [address] Ciara Garcia MD 230 [place] [address] Nurse Triage Social History Tobacco Use Types Packs/Day Years Used Date Smoking Tobacco: Every Day Cigarettes 0.5 45 Smokeless Tobacco: Never Depression Answer Date Recorded [...] encounter Miscellaneous Notes * Telephone Encounter - Madison Hoffman RN - 02/09/2023 2:59 PM EDT FYI for pt. Appt. 02/10/[address] Kaminski Called pt. He states that he was having clicking and pain in his neck x a few months ago. Pt. Is experiencing neck pain and pain radiating down right arm and right hand. Pt. Right hand is also tingling. Pt. Had surgery done on [place] [facility] [place] a few months ago. I do see a report of CR Spine done but that was over 1 year ago on 11/29/21 where there was a metal probe in c3-c4 interspace. Pt. States he had surgery for that the next day at [facility] [place]. I do see surgical notes in [employer] for 11/2021. Please check in [employer] for information prior to pt. Appt. 02/10/[address] Kaminski. Protocol Used: Neck Pain or Stiffness (Adult) Protocol-Based Disposition: See in Office or Video Visit Today- appt. Scheduled for 02/10/23 at 1030am with provider Dr. Kaminski Video visit not offered Positive Triage Questions: * Numbness in an arm or hand (i.e., loss of sensation) * Patient wants to be seen * Moderate neck pain (e.g., interferes with normal activities like work or school) * Pain shoots (radiates) into arm or hand * All higher-acuity triage questions were negative * Telephone Encounter - Peyton Daniels - 02/09/2023 2:57 PM EDT Symptom: Neck Pain - Not From Injury (surgery 2-3 months ago) Outcome: Schedule an urgent appointment (within 4 hours) or talk to a nurse or provider soon Reason: Getting worse The caller accepted this outcome documented in this encounter Plan of Treatment Upcoming Encounters Date Type Department Care Team (Late st Contact Info) Description 09/13/2024 11:15 AM EST Office Visit [facility] OPTOMETRY 267 [place] [address] Gabriela Castañeda, OD 267 [place] [address] 09/26/2024 10:00 AM EDT Office Visit [facility] MEDICINE [address] [place] [address] Ciara Garcia MD [address] [place] [address] 11/12/2024 9:30 AM EDT Clinical Support [address] [address] Jasmina Coronado RN documented as of this encounter Visit Diagnoses Not on filedocumented in this encounter Additional Health Concerns Assessment Noted Time PHQ-9 Depression Total Score: 0 12/29/19 23 11:51 AM EDT documented as of this encounter Care Teams Director Of Training Relationship Specialty Start Date End Date Ciara Garcia MD [address] [place] [phone] PCP - General Family Medicine 06/04/19 documented as of this encounter
--- OUTSIDE RECORDS SUMMARY | 2024-08-30 15:29 | XMS_ITS | Encounter Summary ---
Author Organization [employer] Address 75 [facility] 7 [place] [address] Care Team Providers Care Production Machine Computer Operator Name Role Phone Ciara Garcia MD Primary Care Provide r Reason for Visit * Reason Comments Med Refill Encounter Details Date Type Department Care Team ([facility] st Contact Info) Description 06/10/2024 Refill [facility] MEDICINE 230 [place] [address] Ciara Garcia MD 230 [place] [address] Essential hypertension Social History Tobacco Use Types Packs/Day Years [...] Description 09/13/2024 11:15 AM EST Office Visit [facility] OPTOMETRY 267 [place], [place] [phone] Gabriela Castañeda, OD 267 [place] [address] 09/26/2024 10:00 AM EDT Office Visit [facility] MEDICINE 230 [place] [address] Ciara Garcia MD [address] [place] [address] 11/12/2024 9:30 AM EDT Clinical Support [facility] MEDICINE [address] [place] [address] Jasmina Coronado, RN documented as of this encounter Visit Diagnoses Diagnosis Essential hypertension Unspecified essential hypertension documented in this encounter Additional Health Concerns Assessment Noted Time PHQ-9 Depression Total Score: 0 12/29/19 23 11:51 AM EDT documented as of this encounter Care Teams Production Machine Computer Operator Relationship Specialty Start Date End Date Ciara Garcia MD [address] [place] [phone] PCP - General Family Medicine 06/04/19 documented as of this encounter
--- OUTSIDE RECORDS SUMMARY | 2024-08-30 15:29 | XMS_ITS | Encounter Summary ---
Author Organization [employer] Address 75 [facility] 7t [place] [address] Care Team Providers Care Agricultural Equipment Operator Name Role Phone Ciara Garcia MD Primary Care Provide r Reason for Visit * Reason Comments Med Refill Encounter Details Date Type Department Care Team ([facility] st Contact Info) Description 06/29/2023 Refill [facility] MEDICINE 230 [place] [address] Ciara Garcia MD 230 [place] [address] Tobacco dependence syndrome; Essential hypertension Social History Tobacco Use Types [...] Description 09/13/2024 11:15 AM EST Office Visit [facility] OPTOMETRY 267 [place], [place] [phone] Gabriela Castañeda, OD 267 [place] [address] 09/26/2024 10:00 AM EDT Office Visit [facility] MEDICINE 230 [place] [address] Ciara Garcia MD [address] [place] [address] 11/12/2024 9:30 AM EDT Clinical Support [facility] MEDICINE [address] [place] [address] Jasmina Coronado, RN documented as of this encounter Visit Diagnoses Diagnosis Tobacco dependence syndrome Tobacco use disorder Essential hypertension Unspecified essential hypertension documented in this encounter Additional Health Concerns Assessment Noted Time PHQ-9 Depression Total Score: 0 12/29/19 23 11:51 AM EDT documented as of this encounter Care Teams Agricultural Equipment Operator Relationship Specialty Start Date End Date Ciara Garcia MD [address] [place] [phone] PCP - General Family Medicine 06/04/19 documented as of this encounter
--- OUTSIDE RECORDS SUMMARY | 2024-08-30 15:29 | XMS_ITS | Encounter Summary ---
Author Organization [employer] Address 75 [facility] 7 [place] [address] Care Team Providers Care Green Building Materials Distributor Name Role Phone Ciara Garcia MD Primary Care Provide r Reason for Visit * Reason Comments Med Refill Encounter Details Date Type Department Care Team (Late st Contact Info) Description 12/06/2022 Refill [facility] MEDICINE 230 [place] [address] Mary Trejo, MARKY [address] [place] [address] Dept [place] [address] Essential hypertension Social History Tobacco Use Types [...] suspected to have Coronavirus/COVID-19? No / Unsure 11/10/2022 11:03 AM EDT documented as of this encounter Plan of Treatment Upcoming Encounters Date Type Department Care Team (Late Contact Info) Description 09/13/2024 11:15 AM EST Office Visit [facility] OPTOMETRY [address] [place] [address] Gabriela Castañeda, OD 267 [place] [address] 09/26/2024 10:00 AM EDT Office Visit [facility] MEDICINE 230 [place], [place] [phone] Ciara Garcia MD 230 [place], [place] [phone] 11/12/2024 9:30 AM EDT Clinical Support [facility] MEDICINE 230 [place] [address] Jasmina Coronado RN documented as of this encounter Visit Diagnoses Diagnosis Essential hypertension Unspecified essential hypertension documented in this encounter Care Teams Green Building Materials Distributor Relationship Specialty Start Date End Date Ciara Garcia MD 230 [place], [place] [phone] PCP - General Family Medicine 06/04/19 documented as of this encounter
--- OUTSIDE RECORDS SUMMARY | 2024-08-30 15:29 | XMS_ITS | Encounter Summary ---
Author Organization [employer] Address 75 [facility] 7 [place] [address] Care Team Providers Care Wildlife Science Professor Name Role Phone Ciara Garcia MD Primary Care Provide r Reason for Visit * Reason Comments Med Refill Encounter Details Date Type Department Care Team ([facility] st Contact Info) Description 09/21/2023 Refill [facility] MEDICINE 230 [place], [place] [phone] Ciara Garcia MD 230 [place], [place] [phone] Other chronic pain Social History Tobacco Use [...] 09/13/2024 11:15 AM EST Office Visit [facility] OPTOMETRY 267 [place], [place] [phone] Gabriela Castañeda, OD 267 [place] [address] 09/26/2024 10:00 AM EDT Office Visit [facility] MEDICINE [address] [place] [address] Ciara Garcia MD [address] [place] [address] 11/12/2024 9:30 AM EDT Clinical Support [facility] MEDICINE [address] [place] [address] Jasmina Coronado, MARIBEL documented as of this encounter Visit Diagnoses Diagnosis Other chronic pain documented in this encounter Additional Health Concerns Assessment Noted Time PHQ-9 Depression Total Score: 0 12/29/19 23 11:51 AM EDT documented as of this encounter Care Teams Wildlife Science Professor Relationship Specialty Start Date End Date Ciara Garcia MD [address] [place] [phone] PCP - General Family Medicine 06/04/19 documented as of this encounter
--- OUTSIDE RECORDS SUMMARY | 2024-08-30 15:29 | XMS_ITS | Encounter Summary ---
Author Organization [employer] Address 75 [facility] 7t [place] [address] Care Team Providers Care Slack Cooper Name Role Phone Ciara Garcia MD Primary Care Provide r Reason for Visit * Reason Comments Med Refill Encounter Details Date Type Department Care Team (Late st Contact Info) Description 06/29/2023 Refill [facility] MEDICINE 230 [place] [address] Jamel Duffy AGNP Chronic low back pain with bilateral sciatica, [...] Description 09/13/2024 11:15 AM EST Office Visit [facility] OPTOMETRY 267 [place] [address] Gabriela Castañeda, OD 267 [place] [address] 09/26/2024 10:00 AM EDT Office Visit [facility] MEDICINE 230 [place] [address] Ciara Garcia MD [address] [place] [address] 11/12/2024 9:30 AM EDT Clinical Support [facility] MEDICINE [address] [place] [address] Jasmina Coronado, MARIBEL documented as of this encounter Visit Diagnoses Diagnosis Chronic low back pain with bilateral sciatica, unspecified back pain laterality documented in this encounter Additional Health Concerns Assessment Noted Time PHQ-9 Depression Total Score: 0 12/29/19 23 11:51 AM EDT documented as of this encounter Care Teams Slack Cooper Relationship Specialty Start Date End Date Ciara Garcia MD [address] [place] [phone] PCP - General Family Medicine 06/04/19 documented as of this encounter
--- OUTSIDE RECORDS SUMMARY | 2024-08-30 15:29 | XMS_ITS | Encounter Summary ---
Author Organization [employer] Address [address] [place] [address] 7 [place] [address] Care Team Providers Care Continuous Drier Operator Name Role Phone Ciara Garcia MD Primary Care Provide r Reason for Visit * Reason Onset Date Comments Med Refill 03/16/2023 Encounter Details Date Type Department Care Team ([facility] st Contact Info) Description 03/16/2023 Telephone [facility] [address] [place] [address] Ciara Garcia MD 230 [place] [address] Med Refill Social History Tobacco Use Types [...] encounter Miscellaneous Notes * Telephone Encounter - Viktor Mosquera - 03/16/2023 9:55 AM EDT Tc from pt spouse requesting med refill on oxyCODONE ER (OxyCONTIN) 80 MG 12 hr tablet Please sent to [facility] #[id number] - [place] [facility] [address] [place] documented in this encounter Plan of Treatment Upcoming Encounters Date Type Department Care Team (Late st Contact Info) Description 09/13/2024 11:15 AM EST Office Visit [facility] OPTOMETRY [address] [place] [address] Gabriela Castañeda, OD 267 [place] [address] 09/26/2024 10:00 AM EDT Office Visit [facility] MEDICINE [address] [place] [address] Ciara Garcia MD [address] [place] [address] 11/12/2024 9:30 AM EDT Clinical Support [facility] MEDICINE [address] [place] [address] Jasmina Coronado, RN documented as of this encounter Visit Diagnoses Not on filedocumented in this encounter Additional Health Concerns Assessment Noted Time PHQ-9 Depression Total Score: 0 12/29/19 23 11:51 AM EDT documented as of this encounter Care Teams Continuous Drier Operator Relationship Specialty Start Date End Date Ciara Garcia MD [address] [place] [phone] PCP - General Family Medicine 06/04/19 documented as of this encounter
--- OUTSIDE RECORDS SUMMARY | 2024-08-30 15:29 | XMS_ITS | Encounter Summary ---
Author Organization [employer] Address 75 [facility] 7t [place] [address] Care Team Providers Care Labor Contract Analyst Name Role Phone Ciara Garcia MD Primary Care Provide r Reason for Visit * Reason Onset Date Comments BPI Scoring 08/15/2024 Encounter Details Date Type Department Care Team ([facility] Contact Info) Description 08/15/2024 Telephone [facility] MEDICINE [address] [place] [address] Jasmina Coronado RN BPI Scoring Social History Tobacco Use Types Packs/Day Years [...] encounter Miscellaneous Notes * Telephone Encounter - Jasmina Coronado RN - 08/15/2024 10:06 AM EST Pt had DOCKING PILOT RV appt today BPI updated Pain severity score of 6.8, activity interference score of 6.3. Previous BPI completed 03/27/24 with pain severity score of 6.5, activity interference score of 7. documented in this encounter Plan of Treatment Upcoming Encounters Date Type Department Care Team (Late st Contact Info) Description 09/13/2024 11:15 AM EST Office Visit [facility] OPTOMETRY 267 [place] [address] TarGabriela vidal, OD 267 [place] [address] 09/26/2024 10:00 AM EDT Office Visit [facility] MEDICINE [address] [place] [address] Ciara Garcia MD 230 [place] [address] 11/12/2024 9:30 AM EDT Clinical Support [facility] MEDICINE [address] [place] [address] Jasmina Coronado RN documented as of this encounter Visit Diagnoses Not on filedocumented in this encounter Additional Health Concerns Assessment Noted Time PHQ-9 Depression Total Score: 0 12/29/19 23 11:51 AM EDT documented as of this encounter Care Teams Labor Contract Analyst Relationship Specialty Start Date End Date Ciara Garcia MD [address] [place] [address] PCP - General Family Medicine 06/04/19 documented as of this encounter
--- OUTSIDE RECORDS SUMMARY | 2024-08-30 15:29 | XMS_ITS | Encounter Summary ---
Author Organization [facility] Address [address] [place] [address] 7 [place] [address] Care Team Providers Care Five Piece Expansion Maker Hand Name Role Phone Ciara Garcia MD Primary Care Provide r Reason for Visit * Reason Comments Med Refill Encounter Details Date Type Department Care Team (Late st Contact Info) Description 08/12/2022 Refill [facility] [address] [place] [address] Jeannette Marquez MD [address] [place] [address] Chronic low back pain with bilateral sciatica, unspecified back pain laterality (Primary Dx) Social History Tobacco Use Types Packs/Day Years Used Date Smoking Tobacco: Never Assessed Sex and Gender Information Value Date Recorded Sex Assigned at Male 05/16/2022 10:16 AM EDT Legal Sex Male 10:16 AM EDT Gender Identity Male 05/16/2022 10:16 AM EDT Sexual Orientation Straight 05/16/2022 10 :16 AM EDT documented as of this encounter Plan of Treatment Upcoming Encounters Date Type Department Care Team (Late st Contact Info) Description 09/13/2024 11:15 AM EST Office Visit [facility] [address] [place] [address] Gabriela Castañeda, OD [address] [place] [address] 09/26/2024 10:00 AM EDT Office Visit [facility] [address] [place], [place] [phone] Ciara Garcia MD [address] [place] [place] [address] 11/12/2024 9:30 AM EDT Clinical Support [facility] [address] [place] [address] Jasmina Coronado RN documented as of this encounter Visit Diagnoses Diagnosis Chronic low back pain with bilateral sciatica, unspecified back pain laterality- Primary documented in this encounter Care Teams Five Piece Expansion Maker Hand Relationship Specialty Start Date End Date Ciara Garcia MD [address] [place] [phone] PCP - General Family Medicine 06/04/19 documented as of this encounter
--- OUTSIDE RECORDS SUMMARY | 2024-08-30 15:29 | XMS_ITS | Encounter Summary ---
Author Organization [employer] Address 75 [facility] 7 [place] [address] Care Team Providers Care Toxicology Teacher Name Role Phone Ciara Garcia MD Primary Care Provide r Reason for Visit * Reason Onset Date Comments Nurse Triage 08/30/2024 Encounter Details Date Type Department Care Team ([facility] st Contact Info) Description 08/30/2024 Telephone [facility] [address] [place] [address] Ciara Garcia MD 230 [place] [address] Nurse Triage Social History Tobacco Use Types Packs/Day Years Used Date Smoking Tobacco: Every Day Cigarettes 0.5 45 Passive Smoke Exposure: Current Smokeless Tobacco: Never Depression Answer Date Recorded Patient Health Questionnaire-9 Score 0 12/28/2022 Housing Stability Answer Date Recorded What is your housing situation today? I have magnus rtuong 05/04/[address] you li [...] encounter Miscellaneous Notes * Telephone Encounter - Ange Molina LPN - 08/30/2024 11:28 AM EST Triage call returned to patient who reports ongoing pain from fall on 08/21/24. Patient with negativeimaging. Chief complaint today is of left wrist pain decreased wire stretcher strength due to pain and unrelieved previously ordered pain meds. Patient also has been taking ibuprofen and has used devora wrap to wrist with no note improvement. Disposition reviewed and patient in agreement with plan.ASK/Alpesh Epperson today at 215pm. Multiple (2) protocols were used on this call. Disposition for Call: See in Office or Video Visit within 3 Days Protocol Used: Wrist Injury (Adult) Protocol-Based Disposition: See in Office or Video Visit within 3 Days Video visit not offered Positive Triage Question: * After 3 days and pain not improved * All higher-acuity triage questions were negative Care Advice Discussed: * Use Heat on Area After 48 Hours * Wrap With an Elastic Bandage * Elevate the Arm * Rest vs. Movement * Reasons To Call Back - Pain or swelling lasts over 2 weeks - You become worse Protocol Used: Falls and Falling (Adult) Protocol-Based Disposition: See in Office or Video Visit within 2 Weeks Positive Triage Questions: * Fall and patient seems very anxious and fearful of falling again * Weakness is a chronic symptom (recurrent or ongoing AND present > 4 weeks) * All higher-acuity triage questions were negative Care Advice Discussed: * Reasons To Call Back - You have more questions * Telephone Encounter - Clayton Sheffield - 08/30/2024 11:04 AM EST Symptoms: Body Aches, Pain - Severe, Arm Injury, Elbow Injury, Knee Injury Outcome: Talk to a nurse or provider within 15 minutes Reason: Severe pain now The caller accepted this outcome. documented in this encounter Plan of Treatment Upcoming Encounters Date Type Department Care Team (Late st Contact Info) Description 09/13/2024 11:15 AM EST Office Visit [facility] [address] [place], [place] [phone] Gabriela Castañeda, OD [address] [place] [address] 09/26/2024 10:00 AM EDT Office Visit [facility] 230 [place] [address] Ciara Garcia MD [address] [place] [address] 11/12/2024 9:30 AM EDT Clinical Support [facility] [address] [place] [phone] Jasmina Coronado, RN documented as of this encounter Visit Diagnoses Not on filedocumented in this encounter Additional Health Concerns Assessment Noted Time PHQ-9 Depression Total Score: 0 12/29/19 23 11:51 AM EDT documented as of this encounter Care Teams Toxicology Teacher Relationship Specialty Start Date End Date Ciara Garcia MD [address] [place] [phone] PCP - General Family Medicine 06/04/19 documented as of this encounter
--- OUTSIDE RECORDS SUMMARY | 2024-08-30 15:29 | XMS_ITS | Encounter Summary ---
Author Organization [employer] Address 75 [facility] 7t [place] [address] Care Team Providers Care Transaction Processor Name Role Phone Ciara Garcia MD Primary Care Provide r Reason for Visit * Reason Comments Med Refill Encounter Details Date Type Department Care Team ([facility] st Contact Info) Description 06/19/2024 Refill [facility] [address] [place] [address] Jason Hatfield MD 230 [place] [address] Tobacco dependence Social History Tobacco Use Types Packs/Day Years [...] Description 09/13/2024 11:15 AM EST Office Visit [facility] [address] [place], [place] [phone] Gabriela Castañeda, OD 267 [place] [address] 09/26/2024 10:00 AM EDT Office Visit [facility] [address] [place] [address] Ciara Garcia MD [address] [place] [address] 11/12/2024 9:30 AM EDT Clinical Support [facility] [address] [place] [phone] Jasmina Coronado, RN documented as of this encounter Visit Diagnoses Diagnosis Tobacco dependence Tobacco use disorder documented in this encounter Additional Health Concerns Assessment Noted Time PHQ-9 Depression Total Score: 0 12/29/19 23 11:51 AM EDT documented as of this encounter Care Teams Transaction Processor Relationship Specialty Start Date End Date Ciara Garcia MD [address] [place] [address] [phone] PCP - General Family Medicine 06/04/19 documented as of this encounter
--- OUTSIDE RECORDS SUMMARY | 2024-08-30 15:29 | XMS_ITS | Clinical Summary ---
Author Organization [facility] Address [address] [place] [address] Phone Care Team Providers Care Beach Expert Name Role Phone Ciara Garcia MD Primary Care Provide r Allergies No known active allergies Medications aspirin (ST OLIVIA) 81 MG EC tablet Take 81 mg by mouth 1 (one) time each day Active gabapentin (NEURONTIN) 600 MG tablet Take 600 mg by mouth 3 (three) times a day Active glipiZIDE (GLUCOTROL) 5 MG tablet Take 5 mg by mouth 2 (two) times a day before meals Active ibuprofen (ADVIL,MOTRIN) 800 MG tablet Take 800 mg by mouth 3 (three) times a day Active Naloxone HCl (Narcan) 4 MG/0.1ML liquid Administer into affected nostril(s) Active oxyCODONE (OxyCONTIN) 80 MG 12 hr abuse-deterrent tablet Take 80 mg by mouth every 8 (eight) hours if needed for moderate pain Do not crush, chew, or split. Active albuterol HFA (PROVENTIL HFA;VENTOLIN HFA) 108 (90 Base) MCG/ACT inhaler Inhale 2 puffs every 6 (six) hours if needed for wheezing Active simvastatin (ZOCOR) 40 MG tablet Take 40 mg by mouth every night Active cholecalciferol (VITAMIN D-3) 1.25 MG (83176 UT) tablet Take 50,000 Units by mouth 1 (one) time per week Active terazosin (HYTRIN) 5 MG capsule Take 5 mg by mouth at bed time 1 Active Incruse Ellipta 62.5 MCG/INH aerosol powder TAKE 1 PUFF BY MOUTH EVERY DAY AT LEAST 24 HOURS APART 1 Active meloxicam (MOBIC) 7.5 MG tablet Take 1 tablet by mouth 2 (two) times a day 1 Active Wixela Inhub 250-50 MCG/DOSE diskus inhaler INHALE 1 PUFF BY MOUTH EVERY 12 HOURS 1 Active amLODIPine (NORVASC) 5 MG tablet TAKE 1 TABLET BY MOUTH EVERY DAY 90 tablet 3 2 Active Active Problems Problem Noted Date Diagnosed Date Hypertension 03/25/2021 Acute nontraumatic kidney injury 03/24/2021 Family History Medical History Relation Comments Cancer Brother Diabetes Brother Hypertension Brother Cancer Father Cancer Mother Relation Status Comments Brother Alive Father Mother Social History Tobacco Use Types Packs/Day Years Used Date Smoking Tobacco: Every Day Smokeless Tobacco: Current Alcohol Use Standard Drinks/Week Comments Never 0 (1 standard drink = 0.6 oz pur e alcohol) Sex and Gender Information Value Date Recorded Sex Assigned at Not on file Legal Sex Male 4:21 PM EDT Gender Identity Not on file Sexual Orientation Not on file Last Filed Vital Signs Vital Sign Reading Time Taken Comments Blood Pressure 120/70 03/25/2021 9:56 AM EDT Pulse 67 03/25/2021 9:56 AM EDT Temperature - - Respiratory Rate - - Oxygen Saturation 93% 03/25/2021 9:56 AM EDT Inhaled Oxygen Concentration - - Weight 102 kg (225 lb) 03/25/2021 9:56 AM EDT Height - - Body Mass Index - - Plan of Treatment Health Maintenance Due Date Last Done Comments Pneumococcal Vaccine: 65+ Ye ars (1 of 2 - PCV) 1966 Pneumococcal Vaccine: Pediat rics (0 to 5 Years) and At-Risk Patients (6 to 64 Years) (1 of 2 - PCV) 1966 Colorectal Cancer Screening: Annual FOBT 11/07/2007 Colorectal Cancer Screening: Colonoscopy 11/07/2007 Colorectal Cancer Screening: Sigmoidoscopy 11/07/2007 Influenza Vaccine (#1) 2024 Hepatitis B Vaccine Aged Out No longe r eligible based on patient's age to complete this topic Insurance [place]ICARE [place]ID [place] Care Teams Beach Expert Relationship Specialty Start Date End Date Ciara Garcia MD [address] [place] [phone] PCP - General Internal Medicine 02/03/21
--- OUTSIDE RECORDS SUMMARY | 2024-08-30 15:29 | XMS_ITS | Encounter Summary ---
Author Organization [facility] Address [address] [place] [address] 7t [place] [address] Care Team Providers Care Distributed Generation Project Manager Name Role Phone Ciara Garcia MD Primary Care Provide r Encounter Details Date Type Department Care Team (Late Contact Info) Description 06/13/2022 Abstract [facility] [address] [place] [phone] ProviderEdwin MD Social History Tobacco Use Types Packs/Day Years [...] suspected to have Coronavirus/COVID-19? No / Unsure 06/16/2022 1:09 PM EST documented as of this encounter Plan of Treatment Upcoming Encounters Date Type Department Care Team (Late st Contact Info) Description 09/13/2024 11:15 AM EST Office Visit [facility] [address] [place] [address] Gabriela Castañeda OD [address] [place] [address] 09/26/2024 10:00 AM EDT Office Visit [facility] [address] [place] [address] Ciara Garcia MD [address] [place] [address] 11/12/2024 9:30 AM EDT Clinical Support [facility] [address] [place] [address] [phone] Jasmina Coronado RN documented as of this encounter Visit Diagnoses Not on filedocumented in this encounter Care Teams Distributed Generation Project Manager Relationship Specialty Start Date End Date Ciara Garcia MD [address] [place] [phone] PCP - General Family Medicine 06/04/19 documented as of this encounter
--- OUTSIDE RECORDS SUMMARY | 2024-08-30 15:29 | XMS_ITS | Encounter Summary ---
Author Organization [employer] Address [address] [facility] 7t [place] [address] Care Team Providers Care Software Installation Engineer Name Role Phone Ciara Garcia MD Primary Care Provide r Encounter Details Date Type Department Care Team (Latest Contact Info) Description 08/15/2024 Travel Social History Tobacco Use Types Packs/Day [...] Description 09/13/2024 11:15 AM EST Office Visit [facility] [address] [place], [place] [phone] Gabriela Castañeda, OD 267 [place] [address] 09/26/2024 10:00 AM EDT Office Visit [facility] 230 [place], [place] [phone] Caira Garcia MD [address] [place] [phone] 11/12/2024 9:30 AM EDT Clinical Support [facility] [address] [place] [address] Jasmina Coronado, RN documented as of this encounter Visit Diagnoses Not on filedocumented in this encounter Additional Health Concerns Assessment Noted Time PHQ-9 Depression Total Score: 0 12/29/19 23 11:51 AM EDT documented as of this encounter Care Teams Software Installation Engineer Relationship Specialty Start Date End Date Ciara Garcia MD [address] [place] [address] [phone] PCP - General Family Medicine 06/04/19 documented as of this encounter
== END 2024-08-30 15:26 | disposition home or self-care (01) ==
LOC: HO.HHCL 15:25
PROVIDERS: Visit Provider Internal Medicine
DX: I10 Essential (primary) hypertension (principal)
CPT/HCPCS: 36415

== ENCOUNTER 2024-09-04 13:07 | Outpatient (REF) | payer MEDICARE, MEDICAID, SELFPAY ==
--- OUTSIDE RECORDS SUMMARY | 2024-09-04 13:22 | XMS_ITS | Encounter Summary ---
Author Organization [employer] Address [address] [facility] 7t [place] [address] Care Team Providers Care Electron Microprobe Operator Name Role Phone Ciara Garcia MD Primary Care Provide r Encounter Details Date Type Department Care Team (Late Contact Info) Description 09/02/2022 Orders Only [facility] [address] [place], [place] [phone] Jason Hatfield MD [address] [place] [address] Social History Tobacco Use Types Packs/Day Years [...] Description 09/13/2024 11:15 AM EST Office Visit [facility] [address] [place] [address] Gabriela Castañeda, OD [address] [place] [address] 09/26/2024 10:00 AM EDT Office Visit [facility] 230 [place] [address] Ciara Garcia MD [address] [place] [address] 11/12/2024 9:30 AM EDT Clinical Support [facility] [address] [place] [address] Jasmina Coronado RN documented as of this encounter Procedures Procedure Name Priority Date/Time Associated Diagnosis Comments ALBUMIN, RANDOM URINE W/CREATININE Routine 06/05/2023 2:50 PM EST documented in this encounter Results * (ABNORMAL) Albumin, Random Urine W/Creatinine (06/05/2023 2:50 PM EST) Creatinine, Urine 301.05 mg/dL [facility] Microalbumin Urine 248.0 mg/L H [facility] Microalbum Creatinine Ratio Ur 82.3(H) <30 ug/mg cr [facility] Comment:Albumin/Creatinine R atio Reference Ranges: Normal: < 30 ug/mg creatinine Microalbuminuria: 30 - 300 ug/mg creatinineClinical Albuminuria: > 300 ug/mg creatinine 06/05/2023 2:50 PM EST 06/05/2023 4:05 PM EST us Ciara Celaya MD LAB URINE ORDERABLES Final Result [facility] [address] [place] [address] [phone] documented in this encounter Visit Diagnoses Not on filedocumented in this encounter Care Teams Electron Microprobe Operator Relationship Specialty Start Date End Date Ciara Garcia MD [address] [place] [phone] PCP - General Family Medicine 06/04/19 documented as of this encounter
--- OUTSIDE RECORDS SUMMARY | 2024-09-04 13:22 | XMS_ITS | Encounter Summary ---
Author Organization [employer] Address 75 [facility] 7 [place] [address] Care Team Providers Care Nutritional Services Director Name Role Phone Ciara aGrcia MD Primary Care Provide r Reason for Visit * Reason Comments Med Refill Encounter Details Date Type Department Care Team ([facility] st Contact Info) Description 06/10/2024 Refill [facility] [address] [place] [address] Ciara Garcia MD [address] [place] [address] Essential hypertension Social History Tobacco Use Types [...] Description 09/13/2024 11:15 AM EST Office Visit [facility] [address] [place], [place] [phone] Gabriela Castañeda, OD 267 [place] [address] 09/26/2024 10:00 AM EDT Office Visit [facility] [address] [place] [address] Ciara Garcia MD [address] [place] [address] 11/12/2024 9:30 AM EDT Clinical Support [facility] [address] [place] [phone] Jasmina Coronado, RN documented as of this encounter Visit Diagnoses Diagnosis Essential hypertension Unspecified essential hypertension documented in this encounter Additional Health Concerns Assessment Noted Time PHQ-9 Depression Total Score: 0 12/29/19 23 11:51 AM EDT documented as of this encounter Care Teams Nutritional Services Director Relationship Specialty Start Date End Date Ciara Garcia MD [address] [place] [phone] PCP - General Family Medicine 06/04/19 documented as of this encounter
--- OUTSIDE RECORDS SUMMARY | 2024-09-04 13:22 | XMS_ITS | Encounter Summary ---
Author Organization [employer] Address 75 [facility] 7t [place] [address] Care Team Providers Care Nib Finisher Name Role Phone Ciara Garcia MD Primary Care Provide r Reason for Visit * Reason Comments Med Refill Encounter Details Date Type Department Care Team ([facility] st Contact Info) Description 06/19/2024 Refill [facility] 230 [place] [address] Jason Hatfield MD 230 [place] [address] Tobacco dependence Social History Tobacco Use Types [...] Description 09/13/2024 11:15 AM EST Office Visit [facility] 267 [place], [place] [phone] Gabriela Castañeda, OD 267 [place] [address] 09/26/2024 10:00 AM EDT Office Visit [facility] 230 [place] [address] Ciara Garcia MD [address] [place] [address] 11/12/2024 9:30 AM EDT Clinical Support [facility] [address] [place] [phone] Jasmina Coronado, RN documented as of this encounter Visit Diagnoses Diagnosis Tobacco dependence Tobacco use disorder documented in this encounter Additional Health Concerns Assessment Noted Time PHQ-9 Depression Total Score: 0 12/29/19 23 11:51 AM EDT documented as of this encounter Care Teams Nib Finisher Relationship Specialty Start Date End Date Ciara Garcia MD [address] [place] [address] [phone] PCP - General Family Medicine 06/04/19 documented as of this encounter
--- OUTSIDE RECORDS SUMMARY | 2024-09-04 13:22 | XMS_ITS | Encounter Summary ---
Author Organization [employer] Address 75 [facility] 7 [place] [address] Care Team Providers Care It Consulting Manager Name Role Phone Ciaar Garcia MD Primary Care Provide r Reason for Visit * Reason Onset Date Comments FYI 06/20/2024 Encounter Details Date Type Department Care Team ([facility] Contact Info) Description 06/20/2024 Telephone [facility] 230 [place] [address] Ciara Garcia MD 230 [place] [address] FYI Social History Tobacco Use Types Packs/Day [...] from spouse requesting call back to inform FUNCTIONAL SKILLS TUTOR nurse that pt has received medication. documented in this encounter Plan of Treatment Upcoming Encounters Date Type Department Care Team (Late st Contact Info) Description 09/13/2024 11:15 AM EST Office Visit [facility] [address] [place] [address] Gabriela Castañeda, OD 267 [place] [address] 09/26/2024 10:00 AM EDT Office Visit [facility] [address] [place] [address] Ciara Garcia MD [address] [place] [phone] 11/12/2024 9:30 AM EDT Clinical Support [facility] [address] [place] [phone] Jasmina Coronado RN documented as of this encounter Visit Diagnoses Not on filedocumented in this encounter Additional Health Concerns Assessment Noted Time PHQ-9 Depression Total Score: 0 12/29/19 23 11:51 AM EDT documented as of this encounter Care Teams It Consulting Manager Relationship Specialty Start Date End Date Ciara Garcia MD [address] [place] [phone] PCP - General Family Medicine 06/04/19 documented as of this encounter
--- OUTSIDE RECORDS SUMMARY | 2024-09-04 13:22 | XMS_ITS | Clinical Summary ---
Author Organization [employer] Address [address] [place] [address] 7t [place] [address] Care Team Providers Care Sorter Packer Name Role Phone Ciara Garcia MD Primary Care Provide r Allergies Active Allergy Reactions Criticality Noted Date Comments Pollen Extract 02/10/2023 Other reaction(s): marijuana - causes sweating, nausea, dizziness patient states marijuana causes seizures Medications amLODIPine (Norvasc) 10 MG tablet Take 1 tablet by mouth at bed time. 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; Left hand weakness; Weakness of both hands; B12 deficiency; Continuous dependence on cigarette smoking; Left wrist tendonitis 08/30/2024 Travel 08/30/2024 Telephone [facility] [address] [facility] [place] [address] Ciara Garcia MD Nurse Triage 08/21/2024 2:20 PM EST Office Visit [facility] [address] [facility] [place] [address] Alfred Murphy MD Acute pain of left wrist (Primary Dx); Right elbow pain; Acute pain of right knee 08/15/2024 10:00 AM EST Clinical Support [facility] [address] [facility] [place] [address] Jasmina Coronado RN Chronic low back pain with bilateral sciatica, unspecified back pain laterality (Primary Dx) 08/15/2024 Telephone [facility] [address] [facility] [place] [address] Jasmina Coronado RN BPI Scoring 08/15/2024 Travel 08/12/2024 Refill [facility] [address] [place] [address] Ciara Garcia MD Other chronic pain 08/06/2024 Telephone [facility] 230 [facility] [place] [phone] Ciara Garcia MD 08/01/2024 Refill [facility] [address] [place] [address] Ciara Garcia MD Other chronic pain 07/04/2024 Refill [facility] [address] [place] [address] Ciara Garcia MD Other chronic pain 07/01/2024 Telephone [facility] [address] [place] [phone] Jasmina Coronado, RN telephone call 06/22/2024 Refill [facility] [address] [place] [address] Ciara Garcia MD Cervicalgia 06/21/2024 11:15 AM EST Office Visit [facility] [address] [place] [phone] Ciara Garcia MD Hyperlipidemia, unspecified hyperlipidemia type (Primary Dx); Type 2 diabetes mellitus without complication, without long-term current use of insulin ([facility]); Primary hypertension; Encounter for immunization 06/20/2024 10:00 AM EST Clinical Support [address] [address] Jasmina Coronado, audio visual engineer low back pain with bilateral sciatica, unspecified back pain laterality (Primary Dx) 06/20/2024 Telephone [facility] [address] [place] [phone] Ciara Garcia MD FYI 06/20/2024 Refill [facility] [address] [place] [phone] Jasmina Coronado, RN Other chronic pain 06/20/2024 Travel 06/20/[address] [address] Jasmina Coronado, RN Recomend ART CRITIC Tier 1 06/19/2024 Refill [facility] [address] [place] [address] Jason Hatfield MD Tobacco dependence 06/19/2024 Refill [facility] [address] [place] [address] Ciara Garcia MD Tobacco dependence syndrome; Uncomplicated asthma, unspecified asthma severity, unspecified whether persistent; Chronic low back pain with bilateral sciatica, unspecified back pain laterality 06/10/2024 Telephone [facility] [address] [place] [address] Ciara Garcia MD Med Refill 06/10/2024 Refill [facility] [address] [place] [address] Ciara Garcia MD Essential hypertension 06/10/2024 Refill [facility] [address] [place] [address] Ciara Garcia MD Other chronic pain from Last 3 Months Immunizations Name Administration Dates Next Due Hep B, adult 01/07/2008,08/02/2007,06/22/2007 Influenza injectable quadriv alent IIV4 with preservative 05/03/2017 Influenza injectable quadriv alent preservative free 05/15/2023,05/04/2022,05/09/2021,04/23,04/20/2020,06/03/2019,07/19/2018 ,06/24/2016 Influenza, High Dose Seasona l, Preservative Free 06/21/2024 Influenza, IIV3, injectable 04/21/2014, 1 Influenza, Split (incl. mare fied surface antigen) 06/12/2013 [employer] SARS-CoV-2 Vaccination 12/28/2017 Pfizer Covid-19 Vaccine 12+ [...] Description 09/13/2024 11:15 AM EST Office Visit [facility] [address] [place] [address] Gabriela Castañeda, OD [address] [place] [address] 09/26/2024 10:00 AM EDT Office Visit [facility] [address] [place] [address] Ciara Garcia MD 230 [place] [address] 11/12/2024 9:30 AM EDT Clinical Support [facility] [address] [place] [phone] Jasmina Coronado RN Health Maintenance Due Date Last Done Comments [...] Procedure Name Priority Date/Time Associated Diagnosis Comments CANCELLED CHEMISTRY Routine 08/30/2024 3 :27 PM EST XR KNEE 4+ VIEWS RIGHT Routine 08/21/2024 [...] complication, without long-term current use of insulin ([facility]) POCT GLUCOSE Routine 06/21/2024 11:46 AM EST Type 2 diabetes mellitus without complication, without long-term current use of insulin ([facility]) POCT HERBER-14 URINE DRUG SCREEN Routine 06/20/2024 10:07 AM EST Chronic low back pain with bilateral sciatica, unspecified back pain laterality HEPATITIS PANEL, GENERAL Routine 12/19/2023 9:17 AM EDT ALBUMIN, RANDOM URINE W/CREATININE Routine 06/05/2023 2:50 PM EST LIPID PANEL, STANDARD Routine 06/05/2023 2:50 PM EST Preventative health care from Last 3 Months or Most Recently Relevant to Health Maintenance Results * Cancelled Chemistry (08/30/2024 3:27 PM EST) Cancelled Chemistry SEE NOTE [facility] Comment:THE FOLLOWING TESTS WERE CANCELLED: BMP, LIPID,VITAMIN D,HGB A1C, B12FOL, HOMOCYSTEINE,METHYLMALONIC AREASON: NO SPECIMEN RECEIVED 08/30/2024 3:27 PM EST 08/30/2024 10:01 PM EST us Ciara Celaya MD HISTORICAL/NON ORDERA BLE LABS Final Result [facility] [address] [place] [phone] * XR Knee 4+ Views Right (08/21/2024 3:08 PM EST) Anatomical Region Laterality Modality Lower Extremities, Knee Right Radiogra phic Imaging 08/21/2024 3:08 PM EST Narrative 08/21/2024 4:28 PM EST ?[facility] ?[address] ?[place] [address] ?XRay Report ? Signed ? Patient: Shlely,Efraín S Jr ?MR#: [id number] ?? [id number] ? : 1960 ?Acct:[id number] ? Age/Sex: 63 / M ?ADM Date: 02/05/25 ? Loc: HO.HHCX ? Attending Dr: Alfred Murphy MD ? Ordering Physician: Alfred Murphy MD ?? Date of Service: 08/21/24 ?? Procedure(s): XR knee RT 4V ?? Accession Number(s): [id number] ? cc: Alfred Murphy MD ? EXAMINATION: [...] DD/ 1508 ? TD/TT: 08/21/24 1600 ? Telepathist: MSM ? Procedure Note Vinny, Image - 08/21/2024 [place] [address] XRay Report Signed Patient: Efraín Bravo [facility]#: [id number] : 9Acct:[id number] Age/Sex: 63 / MADM Date: 08/21/24 Loc: HO.HHCX Attending Dr: Alfred Murphy MD Ordering Physician: Alfred Murphy MD Date of Service: 08/21/24 Procedure(s): XR knee RT 4V Accession Number(s): [id number] cc: Alfred Murphy MD EXAMINATION: XR KNEE, [...] 08/21/24 1625 DD/ 1508 TD/TT: 08/21/24 1600 Telepathist: SHERINE us Alfred Name IMSotero XR PROCEDURES Edited Result - Final * XR Wrist 3+ Views Left (08/21/2024 3:08 PM EST) Anatomical Region Laterality Modality Upper Extremities, Wrist Left Radiogr aphic Imaging 08/21/2024 3:08 PM EST Narrative 08/21/2024 4:28 PM EST ?[facility] ?[address] ?[place] [address] ?XRay Report ? Signed ? Patient: Efraín Bravo Jr ?MR#: [id number] ?? [id number] ? : 1960 ?Acct:[id number] ? Age/Sex: 63 / M ?ADM Date: 08/21/24 ? Loc: HO.HHCX ? Attending Dr: Alfred Murphy MD ? Ordering Physician: NameAlfred MD ?? Date of Service: 08/21/24 ?? Procedure(s): XR wrist LT min 3V ?? Accession Number(s): [id number] ? cc: Alfred Murphy MD ? EXAMINATION: [...] DD/ 1508 ? TD/TT: 08/21/24 1600 ? Telepathist: ? Procedure Note Donflacoter, Image - 08/21/2024 [facility] [address] [place] [address] XRay Report Signed Patient: Efraín Bravo [facility]#: [id number] : 9Acct:[id number] Age/Sex: 63 / MADM Date: 08/21/24 Loc: HO.HHCX Attending Dr: Alfred Murphy MD Ordering Physician: Alfred Murphy MD Date of Service: 08/21/24 Procedure(s): XR wrist LT min 3V Accession Number(s): [id number] cc: Alfred Murphy MD EXAMINATION: XR WRIST, [...] by: Skip Araya MD 08/21/2024 04:25 PM [facility] Dictated By: Skip Araya MD Signed By: <Electronically signed by Skip Araya MD in OV> 08/21/24 1625 DD/ 1508 TD/TT: 08/21/24 1600 Telepathist: Alfred Murphy MD IM XR PROCEDURES Edited Result - Final * XR Elbow 1-2 Views Right (08/21/2024 3:08 PM EST) Anatomical Region Laterality Modality Upper Extremities, Elbow Right Radiogr aphic Imaging 08/21/2024 3:08 PM EST Narrative 08/21/2024 4:26 PM EST ?[facility] ?[address] ?[place] [address] ?XRay Report ? Signed ? Patient: Shelly,Efraín S Jr ?MR#: [id number] ?? [id number] ? : 1960 ?Acct:[id number] ? Age/Sex: 63 / M ?ADM Date: 08/21/24 ? Loc: HO.HHCX ? Attending Dr: Alfred Murphy MD ? Ordering Physician: Alfred Murphy MD ?? Date of Service: 08/21/24 ?? Procedure(s): XR elbow RT 2V ?? Accession Number(s): [id number] ? cc: Alfred Murphy MD ? EXAMINATION: [...] DD/ 1508 ? TD/TT: 08/21/24 1600 ? Telepathist: ? Procedure Note Mary Casillas - 08/21/2024 [facility] [address] [place] [address] XRay Report Signed Patient: Efraín Bravo [facility]#: [id number] : 9Acct:[id number] Age/Sex: 63 / MADM Date: 08/21/24 Loc: HO.HHCX Attending Dr: Alfred Murphy MD Ordering Physician: Alfred Murphy MD Date of Service: 08/21/24 Procedure(s): XR elbow RT 2V Accession Number(s): [id number] cc: Alfred Murphy MD EXAMINATION: XR ELBOW, [...] 08/21/24 1623 DD/ 1508 TD/TT: 08/21/24 1600 Telepathist: us Alfred Murphy MD IMG XR PROCEDURES Edited Result - Final * POCT HERBER-14 Urine Drug Screen (08/15/2024 10:04 AM EST) Only the most recent of2 resultswithin the time period is included. Oxycodone Screen, Urine Positive Urine Urine specimen obtained by clean catch procedure / Unknown 08/15/2024 10:04 AM EST Jasmina Santos RN - 08/15/2024 10:04 AM EST UTOX cup Lot#[id number] Exp. 04/10/26 Internal Pass Control us Ciara Celaya MD POINT OF CARE TEST EN TER/EDIT ORDERABLES Final Result * (ABNORMAL) POCT HGB A1C (06/21/2024 11:48 AM EST) Pathologist [facility] Hemoglobin A1C 7.0(A) 4.0 - 6.0 % QC Media Lot # [id number] Lot# Expiration Date [id number] Blood 06/21/2024 11:4 8 AM EST Ciara Celaya MD POINT OF CARE TEST EN TER/EDIT ORDERABLES Final Result * POCT Glucose (06/21/2024 11:46 AM EST) Pathologist [facility] Glucose Blood, POC 188 60 - 200 mg/dL QC Media Lot # [id number] Lot# Expiration Date 61,725 Blood Capillary blood specimen / Unknown 06/21/2024 11:46 AM EST Result [facility] Ciara Celaya MD POINT OF CARE TEST EN TER/EDIT ORDERABLES Final Result * Hepatitis Panel, General (12/19/2023 9:17 AM EDT) Pathologist [facility] Hepatitis A IgM Nonreactive Nonreactive [facility] Comment:IgM antibodies to [place] V not detected; does not exclude earlyacute or recovered HAV infection. ~Hepatitis B Surface Antibody REACTIVE Nonreactive [facility] Comment:REACTIVE: > 11.99 mI U/mL Hepatitis B Core Antibody Nonreactive Nonreactive [facility] Hepatitis C Antibody Nonreactive Nonreactive [facility] Comment:Antibodies to HCV no t detected; does not exclude early acuteHCV infection. Hepatitis B Surface Ag Negative Negative [facility] 12/19/2023 9:17 AM EDT 12/19/2023 9:17 AM EDT Generic External Data Provider LAB BLOOD ORDERAB LES Final Result [facility] [address] [place] [phone] * (ABNORMAL) Albumin, Random Urine W/Creatinine (06/05/2023 2:50 PM EST) Creatinine, Urine 301.05 mg/dL [facility] Microalbumin Urine 248.0 mg/L [facility] Microalbum Creatinine Ratio Ur 82.3(H) <30 ug/mg cr [facility] Comment:Albumin/Creatinine R atio Reference Ranges: Normal: < 30 ug/mg creatinine Microalbuminuria: 30 - 300 ug/mg creatinineClinical Albuminuria: > 300 ug/mg creatinine 06/05/2023 2:50 PM EST 06/05/2023 4:05 PM EST us Ciara Celaya MD LAB URINE ORDERABLES Final Result [facility] [address] [place] [phone] * Lipid Panel, Standard (06/05/2023 2:50 PM EST) Triglycerides 116 <150 mg/dL [facility] Comment:Desirable Triglyceri de: less than 150 mg/dLBorderline High Triglyceride 150-199 mg/dLHigh Triglyceride: 200-499 mg/dLVery High Triglyceride: greater than or equal to 5OO mg/dL Cholesterol 183 <200 mg/dL [facility] Comment:Desirable Cholestero l: less than 200 mg/dLBorderline High Cholesterol: 200-239 mg/dLHigh Cholesterol: greater than 239 mg/dL LDL Cholesterol Calculated 95 <100 mg/dL [facility] Comment:Desirable LDL: less than 100 mg/dLNear Optimal/Above Optimal LDL: 110- 129 mg/dLBorderline High LDL: 130-159 mg/dLHigh LDL: 160-189 mg/dLVery High LDL: greater than or equal to 190 mg/dL HDL Cholesterol 65 >40 mg/dL [facility] Comment:Desirable HDL: great er than 40 mg/dL Note: This HDL assay may give artificially low results in patients with liver disease. Blood Venous blood specimen / Unknown 06/05/2023 2:50 PM EST 06/05/2023 4:05 PM EST Ciara Celaya MD LAB BLOOD ORDERABLES Final Result [facility] [address] [place] [address] [phone] from Last 3 Months or Most Recently Relevant to Health Maintenance Insurance MEDICARE [facility] Care Teams Sorter Packer Relationship Specialty Start Date End Date Ciara Garcia MD [address] [place] [address] [phone] PCP - General Family Medicine 06/04/19
--- OUTSIDE RECORDS SUMMARY | 2024-09-04 13:22 | XMS_ITS | Encounter Summary ---
Author Organization [employer] [facility] Address [address] [place] [address] 7 [place] [address] Care Team Providers Care Traffic Attendant Name Role Phone Ciara Garcia MD Primary Care Provide r Reason for Visit * Reason Comments Med Refill Encounter Details Date Type Department Care Team (Late st Contact Info) Description 08/12/2022 Refill [facility] [address] [place] [address] Jeannette Marquez MD 230 [place] [address] Chronic low back pain with bilateral sciatica, [...] Description 09/13/2024 11:15 AM EST Office Visit [facility] [address] [place] [address] Gabriela Castañeda, OD [address] [place] [address] 09/26/2024 10:00 AM EDT Office Visit [facility] [address] [place], [place] [phone] Ciara Garcia MD [address] [place] [phone] 11/12/2024 9:30 AM EDT Clinical Support [facility] [address] [place] [address] Jasmina Coronado RN documented as of this encounter Visit Diagnoses Diagnosis Chronic low back pain with bilateral sciatica, unspecified back pain laterality- Primary documented in this encounter Care Teams Traffic Attendant Relationship Specialty Start Date End Date Ciara Garcia MD [address] [place] [phone] PCP - General Family Medicine 06/04/19 documented as of this encounter
--- OUTSIDE RECORDS SUMMARY | 2024-09-04 13:22 | XMS_ITS | Encounter Summary ---
Author Organization [employer] Address [address] [facility] 7 [place] [address] Care Team Providers Care Machine Repair Person Name Role Phone Ciara Garcia MD Primary Care Provide r Reason for Visit * Reason Comments Med Refill Encounter Details Date Type Department Care Team (Late st Contact Info) Description 12/06/2022 Refill [facility] [address] [place] [address] Mary Trejo, MARKY [address] [place] [address] Dept [place] [address] Essential hypertension Social History Tobacco Use Types [...] Description 09/13/2024 11:15 AM EST Office Visit [facility] [address] [place] [address] Gabriela Castañeda, OD 267 [place] [address] 09/26/2024 10:00 AM EDT Office Visit [facility] 230 [place], [place] [phone] Ciara Garcia MD 230 [place], [place] [phone] 11/12/2024 9:30 AM EDT Clinical Support [facility] [address] [place] [address] Jasmina Coronado RN documented as of this encounter Visit Diagnoses Diagnosis Essential hypertension Unspecified essential hypertension documented in this encounter Care Teams Machine Repair Person Relationship Specialty Start Date End Date Ciara Garcia MD 230 [place], [place] [phone] PCP - General Family Medicine 06/04/19 documented as of this encounter
--- OUTSIDE RECORDS SUMMARY | 2024-09-04 13:22 | XMS_ITS | Encounter Summary ---
Author Organization [email or web address] Address [address] [facility] 7t [place] [address] Care Team Providers Care Construction Laborer Name Role Phone Ciara Garcia MD Primary Care Provide r Encounter Details Date Type Department Care Team ([facility] st Contact Info) Description 08/06/2024 Telephone [facility] [address] [place] [address] Ciara Garcia MD 230 [place] [address] Social History Tobacco Use Types Packs/Day Years [...] Description 09/13/2024 11:15 AM EST Office Visit [facility] [address] [place], [place] [phone] Gabriela Castañeda, OD [address] [place] [address] 09/26/2024 10:00 AM EDT Office Visit [facility] [address] [place] [phone] Ciara Garcia MD [address] [place] [address] 11/12/2024 9:30 AM EDT Clinical Support [facility] [address] [place] [phone] Jasmina Coronado, MARIBEL documented as of this encounter Visit Diagnoses Not on filedocumented in this encounter Additional Health Concerns Assessment Noted Time PHQ-9 Depression Total Score: 0 12/29/19 23 11:51 AM EDT documented as of this encounter Care Teams Construction Laborer Relationship Specialty Start Date End Date Ciara Garcia MD [address] [place] [address] [phone] PCP - General Family Medicine 06/04/19 documented as of this encounter
--- OUTSIDE RECORDS SUMMARY | 2024-09-04 13:22 | XMS_ITS | Encounter Summary ---
Author Organization [employer] Address [address] [facility] 7t [place] [address] Care Team Providers Care Chief Analytics Officer Name Role Phone Ciraa Garcia MD Primary Care Provide r Reason for Visit * Reason Onset Date Comments BPI Scoring 08/15/2024 Encounter Details Date Type Department Care Team ([facility] Contact Info) Description 08/15/2024 Telephone [facility] [address] [place] [address] Jasmina Coronado RN BPI Scoring Social History [...] - 08/15/2024 10:06 AM EST Pt had STAMP CLASSIFIER RV appt today BPI updated Pain severity score of 6.8, activity interference score of 6.3. Previous BPI completed 03/27/24 with pain severity score of 6.5, activity interference score of 7. documented in this encounter Plan of Treatment Upcoming Encounters Date Type Department Care Team (Late st Contact Info) Description 09/13/2024 11:15 AM EST Office Visit [facility] [address] [place] [address] TarGabriela vidal, OD [address] [place] [address] 09/26/2024 10:00 AM EDT Office Visit [facility] [address] [place] [phone] Ciara Garcia MD 230 [place] [address] 11/12/2024 9:30 AM EDT Clinical Support [facility] [address] [place] [address] Jasmina Coronado RN documented as of this encounter Visit Diagnoses Not on filedocumented in this encounter Additional Health Concerns Assessment Noted Time PHQ-9 Depression Total Score: 0 12/29/19 23 11:51 AM EDT documented as of this encounter Care Teams Chief Analytics Officer Relationship Specialty Start Date End Date Ciara Garcia MD [address] [place] [phone] PCP - General Family Medicine 06/04/19 documented as of this encounter
--- OUTSIDE RECORDS SUMMARY | 2024-09-04 13:22 | XMS_ITS | Encounter Summary ---
Author Organization [employer] Address [address] [facility] 7t [place] [address] Care Team Providers Care Fabric Awning Repairer Name Role Phone Ciara Garcia MD Primary [...] 11:15 AM EST Office Visit [facility] [address] [place], [place] [phone] Gabriela Castañeda, OD [address] [place] [address] 09/26/2024 10:00 AM EDT Office Visit [facility] 230 [place], [place] [phone] Ciara Garcia MD [address] [place] [address] 11/12/2024 9:30 AM EDT Clinical Support [facility] [address] [place] [phone] Jasmina Coronado, RN documented as of this encounter Visit Diagnoses Not on filedocumented in this encounter Additional Health Concerns Assessment Noted Time PHQ-9 Depression Total Score: 0 12/29/19 23 11:51 AM EDT documented as of this encounter Care Teams Fabric Awning Repairer Relationship Specialty Start Date End Date Ciara Garcia MD [address] [place] [address] [phone] PCP - General Family Medicine 06/04/19 documented as of this encounter
--- OUTSIDE RECORDS SUMMARY | 2024-09-04 13:22 | XMS_ITS | Encounter Summary ---
Author Organization [employer] [facility] Address [address] [place] [address] 7t [place] [address] Care Team Providers Care Tooth Clerk Name Role Phone Ciara Garcia MD Primary Care Provide r Encounter Details Date Type Department Care Team (Late Contact Info) Description 06/13/2022 Abstract [facility] [address] [place] [address] ProviderEdwin MD Social History Tobacco Use Types [...] Description 09/13/2024 11:15 AM EST Office Visit [facility] [address] [place] [address] Gabriela Castañeda OD [address] [place] [address] 09/26/2024 10:00 AM EDT Office Visit [facility] [address] [place] [address] Ciara Garcia MD [address] [place] [phone] 11/12/2024 9:30 AM EDT Clinical Support [facility] [address] [place] [address] [phone] Jasmina Coronado RN documented as of this encounter Visit Diagnoses Not on filedocumented in this encounter Care Teams Tooth Clerk Relationship Specialty Start Date End Date Ciara Garcia MD [address] [place] [phone] PCP - General Family Medicine 06/04/19 documented as of this encounter
--- OUTSIDE RECORDS SUMMARY | 2024-09-04 13:22 | XMS_ITS | Encounter Summary ---
Author Organization [employer] Address 75 [facility] 7 [place] [address] Care Team Providers Care Community Life Director Name Role Phone Ciara Garcia MD Primary Care Provide r Reason for Visit * Reason Onset Date Comments Nurse Triage 08/30/2024 Encounter Details Date Type Department Care Team ([facility] st Contact Info) Description 08/30/[address] 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 OPTOMETRY [address] [place], [place] [phone] Gabriela Castañeda, OD 267 [place] [address] 09/26/2024 10:00 AM EDT Office Visit [facility] MEDICINE 230 [place] [address] Ciara Garcia MD [address] [place] [address] 11/12/2024 9:30 AM EDT Clinical Support [facility] MEDICINE [address] [place] [address] Jasmina Coronado, RN documented as of this encounter Visit Diagnoses Not on filedocumented in this encounter Additional Health Concerns Assessment Noted Time PHQ-9 Depression Total Score: 0 12/29/19 23 11:51 AM EDT documented as of this encounter Care Teams Community Life Director Relationship Specialty Start Date End Date Ciara Garcia MD [address] [place] [address] PCP - General Family Medicine 06/04/19 documented as of this encounter
--- OUTSIDE RECORDS SUMMARY | 2024-09-04 13:22 | XMS_ITS | Encounter Summary ---
Author Organization [employer] Address 75 [facility] 7t [place] [address] Care Team Providers Care Seed Analysis Laboratory Assistant Name Role Phone Ciara Garcia MD Primary Care Provide r Reason for Visit * Reason Comments Med Refill Encounter Details Date Type Department Care Team ([facility] st Contact Info) Description 05/06/[address] [facility] MEDICINE 230 [place] [address] Ciara Garcia MD 230 [place] [address] Cervicalgia; Tobacco dependence syndrome Social History Tobacco [...] [facility] OPTOMETRY [address] [place], [place] [phone] Gabriela Castañeda, OD 267 [place] [address] 09/26/2024 10:00 AM EDT Office Visit [facility] MEDICINE [address] [place] [address] Ciara Garcia MD [address] [place] [address] 11/12/2024 9:30 AM EDT Clinical Support [facility] MEDICINE [address] [place] [address] Jamsina Coronado, MARIBEL documented as of this encounter Visit Diagnoses Diagnosis Cervicalgia Tobacco dependence syndrome Tobacco use disorder documented in this encounter Additional Health Concerns Assessment Noted Time PHQ-9 Depression Total Score: 0 12/29/19 23 11:51 AM EDT documented as of this encounter Care Teams Seed Analysis Laboratory Assistant Relationship Specialty Start Date End Date Ciara Garcia MD [address] [place] [address] PCP - General Family Medicine 06/04/19 documented as of this encounter
--- OUTSIDE RECORDS SUMMARY | 2024-09-04 13:22 | XMS_ITS | Continuity of Care Document ---
Author Organization [facility] ter Address [address] [place] [address]- Care Team Providers Care Quality Improvement Engineer Name Role Phone Debbie SOLANO, Faiza Ozuna Primary Care Physician Encounter [facility] Date(s): 07/19/24 - 08/30/24 [facility] [address] [place] [address] Attending Physician: Srinivas Rockwell MD Admitting Physician: Srinivas Rockwell MD Referring Physician: Srinivas Rockwell MD Encounter Type: Pre-Outpt Allergies, Adverse Reactions, Alerts Substance Criticality Severity Reaction Reaction Severity Status Other Environmental Allergy 1 marijuana - causes sweating, nausea, dizziness Active 1patient states marijuana causes seizures Medications albuterol 90 mcg/inh inhalation powder 2 puffs, Inhalation, Every 6 hours, PRN Wheezing/Shortness of Breath, # 1 each, 6 Refills, Maintenance, 09/24/20 11:27:00 AM EST, [id number], 2 puffs Inhalation Every 6 hours,PRN:Wheezing/Shortness of Breath, 177.89, cm, 06/11/19 8:33:00 EST, Height Start Date: 09/24/20 Status: Ordered Quantity: 1.0 Unit: each Repeat number: 7 aspirin 81 mg oral tablet 1 tablet = 81 mg, By Mouth, Daily, # 30 tablet, 0 Refills, Maintenance, 02/20/12 8:19:38 AM EDT, Tablet Start Date: 02/20/12 Status: Ordered Quantity: 30.0 Unit: tablet Repeat number: 1 AutoCPAP 9-13 AutoCPAP 9-13, See Instructions, # 1 each, Refills 0, Tot. Refills 0, Maintenance, use overnight and naps from [employer], 01/06/23 1:37:00 PM EDT, Compound Start Date: 01/06/23 Status: Ordered Quantity: 1.0 Unit: each Repeat number: 1 lisinopril 10 mg oral tablet 10 mg, 1, tablet, By Mouth, Daily in AM, # 30 tablet, Refills 0, Maintenance, 10/18/21 4:44:00 PM EDT, Partial fill upon patient request if the prescription is for a schedule II opioid drug. Start Date: 10/18/21 Status: Ordered Quantity: 30.0 Unit: tablet Repeat number: 1 modafinil 200 mg oral tablet 1 tablet = 200 mg, By Mouth, Daily in AM, dx: SUNNY, somnolence, # 30 tablet, 5 Refills, Maintenance,06/26/24 4:35:00 PM EST, Tablet, [facility]/pharmacy #[id number], Partial fill upon patient request if the prescription is for a schedule II opioid drug., 175, cm, 06/26/24 13:52:00 EST, Height Start Date: 06/26/24 Status: Ordered Quantity: 30.0 Unit: tablet Repeat number: 6 OxyContin 80 mg oral tablet, extended release 1 tablet = 80 mg, By Mouth, 3 times a day, 0 Refills, Maintenance, 02/20/12 12:07:59 PM EDT, ER Tablet Start Date: 02/20/12 Status: Ordered Repeat number: 1 simvastatin 40 mg oral tablet 1 tablet = 40 mg, By Mouth, Daily at bedtime, 0 Refills, Maintenance, 12/06/13 9:29:12 AM EDT Start Date: 12/06/13 Status: Ordered Repeat number: 1 Symbicort 80mcg/4.5mcg Inhaler 2, puffs, Inhalation, 2 times a day, in the morning and the evening rinse mouth and throat after use, # 10.2 Gm, Refills 11, Tot. Refills 11, Maintenance, 06/26/24 2:46:00 PM EST, Aerosol, Route to Pharmacy Electronically, [id number], [facility]/pharmacy #[id number], 175, cm, 12/11/24 1 3:52:00 EST, Height Start Date: 06/26/24 Status: Ordered Quantity: 10.2 Unit: g Repeat number: 12 Problem List Condition Confirmation Course Effective Dates Status Health Status Informant Chronic obstructive pulmonary disease (COPD) Confirmed Active Chronic pain Confirmed Active Hypercholesterolemia Confirmed Active Hypersomnia Confirmed Active Hypoventilation Confirmed Active Mixed sleep apnea Confirmed Active Severe obesity (BMI 35.0-39.9) with comorbidity Confirmed Active Smoking Confirmed Active Social History Social History Type Response Tobacco Use: 4 or less cigar ettes(less than 1/4 pack)/day in last 30 days. Sex Sex Representation Male (finding) Patient Care team information Care Team Personnel Name: Debbie SOLANO, Faiza Ozuna Position: [facility] Outreach Member Role: PCP Address: [address] [place] [address] Telecom: Name: Margarita Montano RN Position: [facility] SN RN Member Role: Primary Care Nurse Name: Srinivas Rockwell MD Position: [facility] Physician - Pulm/Critical Care Med Service: Pulmonology Member Role: Referring Physician Address: [address] [place] [address] [place] [address]- Telecom: Care Team Related Persons Name: LUNA HARRY Insurance Providers Guarantor name: JOHNATHAN HARRY Health Plan Information #: 1 Payer: MEDICARE PART B OUTPT Member Number: [id number] Policy Number: NA Group Number: NA Health Plan Information #: 2 Payer: [facility] Member Number: [id number] Policy Number: NA Group Number: NA
--- OUTSIDE RECORDS SUMMARY | 2024-09-04 13:22 | XMS_ITS | Encounter Summary ---
Author Organization [email or web address] Address [address] [place] [address] 7 [place] [address] Care Team Providers Care Hearing Care Professional Name Role Phone Ciara Garcia MD Primary Care Provide r Reason for Visit * Reason Comments sick on site Encounter Details Date Type Department Care Team ([facility] st Contact Info) Description 08/30/2024 2:15 PM EST Office Visit [facility] MEDICINE 230 [place] [address] Audrey Roblero, ANP 230 [place] [address] Acute pain of left wrist (Primary Dx); prison (current) use of opiate analgesic; Left hand [...] your housing situation today? 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
--- OUTSIDE RECORDS SUMMARY | 2024-09-04 13:22 | XMS_ITS | Encounter Summary ---
Author Organization [employer] Address 75 [facility] 7t [place] [address] Care Team Providers Care Under Sheriff Name Role Phone Ciara Garcia MD Primary Care Provide r Reason for Visit * Reason Comments Med Refill Encounter Details Date Type Department Care Team ([facility] st Contact Info) Description 02/26/2024 Refill [facility] MEDICINE 230 [place] [address] Ciara Garcia MD 230 [place] [address] Cervicalgia; Tobacco dependence syndrome; Uncomplicated asthma, unspecified [...] Description 09/13/2024 11:15 AM EST Office Visit [facility] OPTOMETRY 267 [place] [address] Garbiela Castañeda, OD 267 [place] [address] 09/26/2024 10:00 AM EDT Office Visit [facility] MEDICINE 230 [place] [address] Ciara Garcia MD [address] [place] [address] 11/12/2024 9:30 AM EDT Clinical Support [facility] MEDICINE [address] [place] [address] Jasmina Coronado RN documented as of this encounter Visit Diagnoses Diagnosis Cervicalgia Tobacco dependence syndrome Tobacco use disorder Uncomplicated asthma, unspecified asthma severity, unspecified whether persistent documented in this encounter Additional Health Concerns Assessment Noted Time PHQ-9 Depression Total Score: 0 12/29/19 23 11:51 AM EDT documented as of this encounter Care Teams Under Sheriff Relationship Specialty Start Date End Date Ciara Garcia MD [address] [place] [address] PCP - General Family Medicine 06/04/19 documented as of this encounter
--- OUTSIDE RECORDS SUMMARY | 2024-09-04 13:22 | XMS_ITS | Encounter Summary ---
Author Organization [employer] Address 75 [facility] 7 [place] [address] Care Team Providers Care Retail Field Supervisor Name Role Phone Ciara Garcia MD Primary Care Provide r Reason for Visit * Reason Onset Date Comments Med Refill 08/12/2024 Encounter Details Date Type Department Care Team ([facility] st Contact Info) Description 08/12/2024 Refill [facility] MEDICINE 230 [place] [address] Ciara Garcia MD 230 [place] [address] Other chronic pain Social History Tobacco Use [...] - 08/15/2024 11:45 AM EST TC to [facility], spoke with Lisa, clarified Oxycontin RX for today was not filled d/t no inventory. Requested RX be cancelled. * Telephone Encounter - Sam Hammond - 08/15/2024 11:12 AM EST TC from pt Spouse requesting for medication script to be sent to [facility]/pharmacy #[id number] - [address] Due to the Pharmacy that they first sent it to not having the medication. If any questions contact pt Spouse at [phone] * Telephone Encounter - Carlos Barnes - 08/12/2024 11:45 AM EST TC from pt requesting medication refill. Medications needing refill : oxyCODONE ER (OxyCONTIN) 80 MG 12 hr tablet To be sent to: [facility]/pharmacy #[id number] documented in this encounter Plan of Treatment Upcoming Encounters Date Type Department Care Team (Late st Contact Info) Description 09/13/2024 11:15 AM EST Office Visit [facility] OPTOMETRY 267 [place], [place] [phone] Garry Gabriela, OD 267 [place] [address] 09/26/2024 10:00 AM EDT Office Visit [facility] MEDICINE 230 [place] [address] Ciara Garcia MD [address] [place] [address] 11/12/2024 9:30 AM EDT Clinical Support [facility] MEDICINE [address] [place] [address] John Coronado RN documented as of this encounter Visit Diagnoses Diagnosis Other chronic pain documented in this encounter Additional Health Concerns Assessment Noted Time PHQ-9 Depression Total Score: 0 12/29/19 23 11:51 AM EDT documented as of this encounter Care Teams Retail Field Supervisor Relationship Specialty Start Date End Date Ciara Garcia MD [address] [place] [address] [phone] PCP - General Family Medicine 06/04/19 documented as of this encounter
--- OUTSIDE RECORDS SUMMARY | 2024-09-04 13:22 | XMS_ITS | Encounter Summary ---
Author Organization [employer] Address 75 [facility] 7 [place] [address] Care Team Providers Care Refinery Operator Helper Name Role Phone Ciara Garcia MD Primary Care Provide r Reason for Visit * Reason Onset Date Comments Med Refill 08/01/2024 Encounter Details Date Type Department Care Team ([facility] st Contact Info) Description 08/01/2024 Refill [facility] MEDICINE 230 [place] [address] Ciara Garcia MD 230 [place] [address] Other chronic pain Social History Tobacco Use [...] requesting fo rit to be sent to [facility]/pharmacy #[id number] [place], [place] - [address] [place] [address] Due to the other pharmacy not having medication in stock. IF any questions contact pt at [phone] * Addendum Note - John Coronado RN - 08/06/2024 12:34 PM ESTAddended by: JOHN CORONADO on: 08/06/2024 12:34 PM Modules accepted: Orders * Telephone Encounter - John Coronado RN - 08/06/2024 12:31 PM EST TC to [facility], spoke with Ashley, confirmed OxyContin RX sent for 08/05/24 was not filled d/t insufficient stock. Requested RX be cancelled. * Telephone Encounter - Anette Alexander - 08/06/2024 11:33 AM EST Tc from pt regarding medication oxyCODONE ER (OxyCONTIN) 80 MG 12 hr tablet. Pt is requesting script to be sent to [facility]/pharmacy #[id number] - [place] - [address] [facility] due to [facility] #[id number] not having medication in stock. * Telephone Encounter - Anette Alexander - 08/01/2024 1:17 PM EST TC from pt requesting medication refill. Medications needing refill : oxyCODONE ER (OxyCONTIN) 80 MG 12 hr tablet To be sent to: [facility]/pharmacy #[id number] - [place] - [address] [place] [address] documented in this encounter Plan of Treatment Upcoming Encounters Date Type Department Care Team (Late st Contact Info) Description 09/13/2024 11:15 AM EST Office Visit [facility] OPTOMETRY 267 [place] [address] Gabriela Castañeda, OD 267 [place] [address] 09/26/2024 10:00 AM EDT Office Visit [facility] MEDICINE [address] [place] [address] Ciara Garcia MD [address] [place] [address] 11/12/2024 9:30 AM EDT Clinical Support [facility] MEDICINE [address] [place] [address] John Coronado RN documented as of this encounter Visit Diagnoses Diagnosis Other chronic pain documented in this encounter Additional Health Concerns Assessment Noted Time PHQ-9 Depression Total Score: 0 12/29/19 23 11:51 AM EDT documented as of this encounter Care Teams Refinery Operator Helper Relationship Specialty Start Date End Date Ciara Garcia MD [address] [place] [address] PCP - General Family Medicine 06/04/19 documented as of this encounter
--- OUTSIDE RECORDS SUMMARY | 2024-09-04 13:22 | XMS_ITS | Encounter Summary ---
Author Organization [employer] Address 75 [facility] 7t [place] [address] Care Team Providers Care Steam Table Associate Name Role Phone Ciara Garcia MD Primary Care Provide r Reason for Visit * Reason Comments left wrist, right elbow and right knee p ain Encounter Details Date Type Department Care Team (Late st Contact Info) Description 08/21/2024 2:20 PM EST Office Visit [facility]ALK[facility]IN CENTER 230 [place] [address] Name, MD Alfred 230 [place] [address] Acute pain of left wrist (Primary Dx); [...] Description 09/13/2024 11:15 AM EST Office Visit [facility] OPTOMETRY 267 [place] [address] Gabriela Castañeda, OD 267 [place] [address] 09/26/2024 10:00 AM EDT Office Visit [facility] MEDICINE 230 [place] [address] Ciara Garcia MD 230 [place] [address] 11/12/2024 9:30 AM EDT Clinical Support [facility] MEDICINE [address] [place] [address] Jasmina Coronado RN documented as of this [...] Region Laterality Modality Lower Extremities, Knee Right [employer] [facility] 08/21/2024 3:08 PM EST Narrative 08/21/2024 4:28 PM EST ?[facility] ?[address] ?[place] [address] ?XRay Report ? Signed ? Patient: Efraín Bravo Jr ?MR#: [id number] ?? [id number] ? : 1960 ?Acct:[id number] ? Age/Sex: 63 / M ?ADM Date: 08/21/24 ? Loc: HO.HHCX ? Attending Dr: Alfred Murphy MD ? Ordering Physician: Alfred Murphy MD ?? Date of Service: 08/21/24 ?? Procedure(s): XR knee RT 4V ?? Accession Number(s): [id number] ? cc: Alfred Murphy MD ? EXAMINATION: [...] DD/ 1508 ? TD/TT: 08/21/24 1600 ? Hosiery Repairer: MSM ? Procedure Note Donotkimberlyinterpreter, Image - 08/21/[address] [address] XRay Report Signed Patient: Efraín Bravo [facility]#: [id number] : 9Acct:[id number] Age/Sex: 63 / MADM Date: 08/21/24 Loc: HO.HHCX Attending Dr: Alfred Murphy MD Ordering Physician: Alfred Murphy MD Date of Service: 08/21/24 Procedure(s): XR knee RT 4V Accession Number(s): [id number] cc: Alfred Murphy MD EXAMINATION: XR KNEE, [...] 08/21/24 1625 DD/ 1508 TD/TT: 08/21/24 1600 Hosiery Repairer: [facility] Alfred Murphy MD IM XR PROCEDURES Edited Result - Final * XR Elbow 1-2 Views Right (08/21/2024 3:08 PM EST) Anatomical Region Laterality Modality Upper Extremities, Elbow Right Radiogr aphic Imaging 08/21/2024 3:08 PM EST Narrative 08/21/2024 4:26 PM EST ?[facility] ?[address] ?[place] [address] ?XRay Report ? Signed ? Patient: Shelly,Efraín S Jr ?MR#: [id number] ?? [id number] ? : 1960 ?Acct:[id number] ? Age/Sex: 63 / M ?ADM Date: 08/21/24 ? Loc: HO.HHCX ? Attending Dr: Alfred Murphy MD ? Ordering Physician: Alfred Murphy MD ?? Date of Service: 08/21/24 ?? Procedure(s): XR elbow RT 2V ?? Accession Number(s): [id number] ? cc: Alfred Murphy MD ? EXAMINATION: [...] DD/ 1508 ? TD/TT: 08/21/24 1600 ? Hosiery Repairer: ? Procedure Note Mary Casillas - 08/21/[address] [address] XRay Report Signed Patient: Efraín Bravo MR#: [id number] : 9Acct:[id number] Age/Sex: 63 / MADM Date: 08/21/24 Loc: HO.HHCX Attending Dr: Alfred Murphy MD Ordering Physician: Alfred Murphy MD Date of Service: 08/21/24 Procedure(s): XR elbow RT 2V Accession Number(s): [id number] cc: Alfred Murphy MD EXAMINATION: XR ELBOW, [...] 08/21/24 1623 DD/ 1508 TD/TT: 08/21/24 1600 Hosiery Repairer: Alfred Murphy MD IM XR PROCEDURES Edited Result - Final * XR Wrist 3+ Views Left (08/21/2024 3:08 PM EST) Anatomical Region Laterality Modality Upper Extremities, Wrist Left Radiogr aphic Imaging 08/21/2024 3:08 PM EST Narrative 08/21/2024 4:28 PM EST ?[facility] ?[address] ?[place] [address] ?XRay Report ? Signed ? Patient: Shelly,Efraín S Jr ?MR#: [id number] ?? [id number] ? : 1960 ?Acct:[id number] ? Age/Sex: 63 / M ?ADM Date: 02/05/25 ? Loc: HO.HHCX ? Attending Dr: Alfred Murphy MD ? Ordering Physician: Alfred Murphy MD ?? Date of Service: 08/21/24 ?? Procedure(s): XR wrist LT min 3V ?? Accession Number(s): [id number] ? cc: Alfred Murphy MD ? EXAMINATION: [...] DD/ 1508 ? TD/TT: 08/21/24 1600 ? Hosiery Repairer: ? Procedure Note Vinny, Image - 08/21/2024 [place] [address] XRay Report Signed Patient: Efraín Bravo [facility]#: [id number] : 9Acct:[id number] Age/Sex: 63 / MADM Date: 08/21/24 Loc: HO.HHCX Attending Dr: Alfred Murphy MD Ordering Physician: Alfred Murphy MD Date of Service: 08/21/24 Procedure(s): XR wrist LT min 3V Accession Number(s): [id number] cc: Alfred Murphy MD EXAMINATION: XR WRIST, [...] 08/21/24 1625 DD/ 1508 TD/TT: 08/21/24 1600 Hosiery Repairer: us Alfred Name IMG XR PROCEDURES Edited Result - Final documented in this encounter Visit Diagnoses Diagnosis Acute pain of left wrist- Primary Right elbow pain Pain in joint, upper arm Acute pain of right knee documented in this encounter Additional Health Concerns Assessment Noted Time PHQ-9 Depression Total Score: 0 12/29/19 23 11:51 AM EDT documented as of this encounter Care Teams Steam Table Associate Relationship Specialty Start Date End Date Ciara Garcia MD [address] [place] [address] PCP - General Family Medicine 06/04/19 documented as of this encounter
--- OUTSIDE RECORDS SUMMARY | 2024-09-04 13:22 | XMS_ITS | Encounter Summary ---
Author Organization [employer] Address 75 [facility] 7t [place] [address] Care Team Providers Care Customer Relations Specialist Name Role Phone Ciara Garcia MD Primary Care Provide r Reason for Visit * Reason Comments Med Refill Encounter Details Date Type Department Care Team ([facility] st Contact Info) Description 06/01/[address] [facility] MEDICINE 230 [place] [address] Ciara Garcia MD 230 [place] [address] Cervicalgia; Tobacco dependence syndrome; Uncomplicated asthma, unspecified [...] 09/13/2024 11:15 AM EST Office Visit [facility] OPTOMETRY 267 [place] [address] Gabriela Castañeda, OD 267 [place] [address] 09/26/2024 10:00 AM EDT Office Visit [facility] MEDICINE 230 [place] [address] Ciara Garcia MD [address] [place] [address] 11/12/2024 9:30 AM EDT Clinical Support [facility] MED[facility]INE [address] [place] [address] Jasmina Coronado RN documented as of this encounter Visit Diagnoses Diagnosis Cervicalgia Tobacco dependence syndrome Tobacco use disorder Uncomplicated asthma, unspecified asthma severity, unspecified whether persistent documented in this encounter Additional Health Concerns Assessment Noted Time PHQ-9 Depression Total Score: 0 12/29/19 23 11:51 AM EDT documented as of this encounter Care Teams Customer Relations Specialist Relationship Specialty Start Date End Date Ciara Garcia MD [address] [place] [address] PCP - General Family Medicine 06/04/19 documented as of this encounter
--- OUTSIDE RECORDS SUMMARY | 2024-09-04 13:22 | XMS_ITS | Encounter Summary ---
Author Organization [employer] Address [address] [place] [address] 7 [place] [address] Care Team Providers Care Compounding Technician Name Role Phone Ciara Garcia MD Primary Care Provide r Reason for Visit * Reason Onset Date Comments Med Refill 03/16/2023 Encounter Details Date Type Department Care Team ([facility] st Contact Info) Description 03/16/2023 Telephone [facility] MED & PEDS [address] [place] [address] Ciara Garcia MD 230 [place] [address] Med Refill Social History Tobacco Use Types [...] MG 12 hr tablet Please sent to [facility]/pharmacy #[id number] - [place] [facility] [address] [facility] documented in this encounter Plan of Treatment Upcoming Encounters Date Type Department Care Team (Late st Contact Info) Description 09/13/2024 11:15 AM EST Office Visit [facility] OPTOMETRY [address] [place] [address] Gabriela Castañeda, OD 267 [place] [address] 09/26/2024 10:00 AM EDT Office Visit [facility] MEDICINE [address] [place] [address] Ciara Garcia MD [address] [place] [address] 11/12/2024 9:30 AM EDT Clinical Support [facility] MED[facility] [address] [place] [address] Jasmina Coronado, RN documented as of this encounter Visit Diagnoses Not on filedocumented in this encounter Additional Health Concerns Assessment Noted Time PHQ-9 Depression Total Score: 0 12/29/19 23 11:51 AM EDT documented as of this encounter Care Teams Compounding Technician Relationship Specialty Start Date End Date Ciara Garcia MD [address] [place] [phone] PCP - General Family Medicine 06/04/19 documented as of this encounter
--- OUTSIDE RECORDS SUMMARY | 2024-09-04 13:22 | XMS_ITS | Encounter Summary ---
Author Organization [employer] Address [address] [facility] 7t [place] [address] Care Team Providers Care Campus Manager Name Role Phone Ciara Garcia MD [...] Office Visit [facility] OPTOMETRY 267 [place], [place] [phone] Gabriela Castañeda, OD 267 [place] [address] 09/26/2024 10:00 AM EDT Office Visit [facility] MEDICINE 230 [place], [place] [phone] Ciara Garcia MD [address] [place] [address] 11/12/2024 9:30 AM EDT Clinical Support [facility] MEDICINE [address] [place] [address] Jasmina Coronado, RN documented as of this encounter Visit Diagnoses Not on filedocumented in this encounter Additional Health Concerns Assessment Noted Time PHQ-9 Depression Total Score: 0 12/29/19 23 11:51 AM EDT documented as of this encounter Care Teams Campus Manager Relationship Specialty Start Date End Date Ciara Garcia MD [address] [place] [address] [phone] PCP - General Family Medicine 06/04/19 documented as of this encounter
--- OUTSIDE RECORDS SUMMARY | 2024-09-04 13:22 | XMS_ITS | Encounter Summary ---
Author Organization [facility] [facility] Address [address] [place] [address] 7t [place] [address] Care Team Providers Care Cooker Sulfate Name Role Phone Ciara Garcia MD Primary Care Provide r Reason for Visit * Reason Onset Date Comments Nurse Triage 02/09/2023 Encounter Details Date Type Department Care Team ([facility] st Contact Info) Description 02/09/2023 Telephone [facility] MEDICINE 230 [place] [address] Ciara Garcia MD 230 [place] [address] Nurse Triage Social History Tobacco Use Types [...] Pt. Had surgery done on [place] [facility] a few months ago. I do see a report of CR Spine done but that was over 1 year ago on 11/29/21 where there was a metal probe in c3-c4 interspace. Pt. States he had surgery for that the next day at [facility]. I do see surgical notes in [employer] [...] Description 09/13/2024 11:15 AM EST Office Visit [facility] OPTOMETRY 267 [place] [address] Gabriela Castañeda, OD 267 [place] [address] 09/26/2024 10:00 AM EDT Office Visit [facility] MEDICINE [address] [place] [address] Ciara Garcia MD [address] [place] [address] 11/12/2024 9:30 AM EDT Clinical Support [address] [address] Jasmina Coronado RN documented as of this encounter Visit Diagnoses Not on filedocumented in this encounter Additional Health Concerns Assessment Noted Time PHQ-9 Depression Total Score: 0 12/29/19 23 11:51 AM EDT documented as of this encounter Care Teams Cooker Sulfate Relationship Specialty Start Date End Date Ciara Garcia MD [address] [place] [address] PCP - General Family Medicine 06/04/19 documented as of this encounter
--- OUTSIDE RECORDS SUMMARY | 2024-09-04 13:22 | XMS_ITS | Encounter Summary ---
Author Organization [employer] Address [address] [facility] 7t [place] [address] Care Team Providers Care Eight Arm Operator Name Role Phone Ciara Garcia MD Primary Care Provide r Reason for Visit * Reason Comments PHARMACY RETAIL SUPPORT SPECIALIST RV PHARMACY RETAIL SUPPORT SPECIALIST RV Encounter Details Date Type Department Care Team (Latest Contact Info) Description 08/15/2024 10:00 AM EST Clinical Support [facility] MEDICINE 230 [place] [address] Jasmina Coronado RN Chronic low back pain [...] t he electric, gas, oil or water [employer] threatened to shut off services in your [...] 10:00 AM EST S: Pt here for PHARMACY RETAIL SUPPORT SPECIALIST Revisit. Prescribed Oxycontin 80mg Q8hr PRN. States [...] lower back, neck and hips. Pt cancelled PHARMACY RETAIL SUPPORT SPECIALIST appt 07/30/24. O: SCT Tier 2. Pt currently prescribed Oxycontin 80mg Q8hr PRN. MEDICAL CLAIMS REPRESENTATIVE verified today. Rx last filled on 08/07/24. [...] visit was 06/21/24, scheduled next 09/26/24. A: PHARMACY RETAIL SUPPORT SPECIALIST Contract Revisit: Chronic Opioid use related to pain. P: Pt to continue taking medication only as prescribed; Next PHARMACY RETAIL SUPPORT SPECIALIST RV appointment scheduled for 11/12/24 @ 9:30am, F/U sooner PRN. Appointment reminder given. Pt verbalized understanding and agreed to plan. documented in this encounter Plan of Treatment Upcoming Encounters Date Type Department Care Team (Late st Contact Info) Description 09/13/2024 11:15 AM EST Office Visit [facility] OPTOMETRY 267 [place] [address] Gabriela Castañeda, OD 267 [place] [address] 09/26/2024 10:00 AM EDT Office Visit [facility] MEDICINE [address] [place] [address] Ciara Garcia MD [address] [place] [address] 11/12/2024 9:30 AM EDT Clinical Support [facility] MEDICINE [address] [place] [address] Jasmina Coronado RN documented as of this [...] - 08/15/2024 10:04 AM EST [employer] cup Lot#[id number] Exp. 04/10/26 Internal Pass Control us Ciara [...] documented as of this encounter Care Teams Eight Arm Operator Relationship Specialty Start Date End Date Ciara Garcia MD 230 [place] [address] PCP - General Family Medicine 06/04/19 documented as of this encounter
--- OUTSIDE RECORDS SUMMARY | 2024-09-04 13:22 | XMS_ITS | Encounter Summary ---
Author Organization [facility] Address [address] [place] [address] 7 [place] [address] Care Team Providers Care Metal Handler Name Role Phone Ciara Garcia MD Primary Care Provide r Reason for Visit * Reason Onset Date Comments Med Refill 02/16/2023 Encounter Details Date Type Department Care Team ([facility] st Contact Info) Description 02/16/[address] [facility] MEDICINE [address] [place] [address] Ciara Garcia MD 230 [place] [address] Med Refill Social History Tobacco Use Types [...] AM EST Office Visit [facility] OPTOMETRY [address] [place], [place] [phone] Gabriela Castañeda, OD 267 [place] [address] 09/26/2024 10:00 AM EDT Office Visit [facility] MEDICINE [address] [place] [address] Ciara Garcia MD [address] [place] [address] 11/12/2024 9:30 AM EDT Clinical Support [facility] MEDICINE [address] [place] [address] Jasmina Coronado RN documented as of this encounter Visit Diagnoses Not on filedocumented in this encounter Additional Health Concerns Assessment Noted Time PHQ-9 Depression Total Score: 0 12/29/19 23 11:51 AM EDT documented as of this encounter Care Teams Metal Handler Relationship Specialty Start Date End Date Ciara Garcia MD [address] [place] [address] [phone] PCP - General Family Medicine 06/04/19 documented as of this encounter
--- OUTSIDE RECORDS SUMMARY | 2024-09-04 13:22 | XMS_ITS | Encounter Summary ---
Author Organization [facility] Address [address] [place] [address] 7t [place] [address] Care Team Providers Care Account Services Manager Name Role Phone Ciara Garcia MD Primary Care Provide r Encounter Details Date Type Department Care Team (Late Contact Info) Description 04/17/[address] [facility] MEDICINE 230 [place] [address] Ciara Garcia MD 230 [place] [address] Social History Tobacco Use Types Packs/Day Years [...] 09/13/2024 11:15 AM EST Office Visit [facility] OPTOMETRY 267 [place] [address] Gabriela Castañeda, OD 267 [place] [address] 09/26/2024 10:00 AM EDT Office Visit [facility] MEDICINE [address] [place] [address] Ciara Garcia MD [address] [place] [address] 11/12/2024 9:30 AM EDT Clinical Support [address] [address] Jasmina Coronado RN documented as of this encounter Visit Diagnoses Not on filedocumented in this encounter Additional Health Concerns Assessment Noted Time PHQ-9 Depression Total Score: 0 12/29/19 23 11:51 AM EDT documented as of this encounter Care Teams Account Services Manager Relationship Specialty Start Date End Date Ciara Garcia MD [address] [place] [address] PCP - General Family Medicine 06/04/19 documented as of this encounter
--- OUTSIDE RECORDS SUMMARY | 2024-09-04 13:23 | XMS_ITS | Encounter Summary ---
Author Organization [facility] Address [address] [facility] 7t [place] [address] Care Team Providers Care Imaging Aide Name Role Phone Ciara Garcia MD Primary Care Provide r Reason for Visit * Reason Comments Med Refill Encounter Details Date Type Department Care Team (Late st Contact Info) Description 06/29/2023 Refill [facility] MEDICINE 230 [place] [address] Jamel Duffy AGNP Chronic low back pain [...] 11:15 AM EST Office Visit [facility] OPTOMETRY 267 [place] [address] Gabriela Castañeda, OD 267 [place] [address] 09/26/2024 10:00 AM EDT Office Visit [facility] MEDICINE 230 [place] [address] Ciara Garcia MD [address] [place] [address] 11/12/2024 9:30 AM EDT Clinical Support [facility] MEDICINE [address] [place] [address] Jasmina Coronado, MARIBEL documented as of this encounter Visit Diagnoses Diagnosis Chronic low back pain with bilateral sciatica, unspecified back pain laterality documented in this encounter Additional Health Concerns Assessment Noted Time PHQ-9 Depression Total Score: 0 12/29/19 23 11:51 AM EDT documented as of this encounter Care Teams Imaging Aide Relationship Specialty Start Date End Date Ciara Garcia MD [address] [place] [address] PCP - General Family Medicine 06/04/19 documented as of this encounter
--- OUTSIDE RECORDS SUMMARY | 2024-09-04 13:23 | XMS_ITS | Encounter Summary ---
Author Organization [employer] Address [address] [facility] 7 [place] [address] Care Team Providers Care [place] Mixing Operator Name Role Phone Ciara Garcia MD Primary Care Provide r Reason for Visit * Reason Comments Med Refill Encounter Details Date Type Department Care Team ([facility] st Contact Info) Description 06/29/2023 Refill [facility] MEDICINE 230 [place] [address] Ciara Garcia MD 230 [place] [address] Tobacco dependence syndrome; Essential hypertension Social History [...] Visit [facility] OPTOMETRY 267 [place], [place] [phone] Gabriela Castañeda, OD 267 [place] [address] 09/26/2024 10:00 AM EDT Office Visit [facility] MEDICINE 230 [place] [address] Ciara Garcia MD [address] [place] [address] 11/12/2024 9:30 AM EDT Clinical Support [facility] MEDICINE [address] [place] [address] Jasmina Coronado, RN documented as of this encounter Visit Diagnoses Diagnosis Tobacco dependence syndrome Tobacco use disorder Essential hypertension Unspecified essential hypertension documented in this encounter Additional Health Concerns Assessment Noted Time PHQ-9 Depression Total Score: 0 12/29/19 23 11:51 AM EDT documented as of this encounter Care Teams Gray Mixing Operator Relationship Specialty Start Date End Date Ciara Garcia MD [address] [place] [phone] PCP - General Family Medicine 06/04/19 documented as of this encounter
--- OUTSIDE RECORDS SUMMARY | 2024-09-04 13:23 | XMS_ITS | Clinical Summary ---
Author Organization [facility] Address [address] [place] [address] Phone Care Team Providers Care Glass Calibrator Name Role Phone Ciara Garcia MD Primary [...] night Active cholecalciferol (VITAMIN D-3) 1.25 MG (52989 UT) tablet Take 50,000 Units by mouth [...] MEDICAID [place] Care Teams Glass Calibrator Relationship Specialty Start Date End Date Ciara Garcia MD [address] [place] [phone] PCP - General Internal Medicine 02/03/21
--- OUTSIDE RECORDS SUMMARY | 2024-09-04 13:23 | XMS_ITS | Encounter Summary ---
Author Organization [employer] Address [address] [facility] 7t [place] [address] Care Team Providers Care Hatchery Attendant Name Role Phone Ciara Garcia MD Primary Care Provide r Reason for Visit * Reason Comments Med Refill Encounter Details Date Type Department Care Team ([facility] st Contact Info) Description 06/29/2023 Refill [facility] MEDICINE [address] [place] [address] Vianney Odom, MARKY [address] [place] [address] Chronic low back pain with bilateral sciatica, [...] Description 09/13/2024 11:15 AM EST Office Visit [facility] OPTOMETRY 267 [place] [address] TarGabriela vidal, OD 267 [place] [address] 09/26/2024 10:00 AM EDT Office Visit [facility] MEDICINE [address] [place] [address] Ciara Garcia MD [address] [place] [address] 11/12/2024 9:30 AM EDT Clinical Support [facility] MEDICINE [address] [place] [address] Jasmina Coronado RN documented as of this encounter Visit Diagnoses Diagnosis Chronic low back pain with bilateral sciatica, unspecified back pain laterality documented in this encounter Additional Health Concerns Assessment Noted Time PHQ-9 Depression Total Score: 0 12/29/19 23 11:51 AM EDT documented as of this encounter Care Teams Hatchery Attendant Relationship Specialty Start Date End Date Ciara Garcia MD [address] [place] [address] PCP - General Family Medicine 06/04/19 documented as of this encounter
--- OUTSIDE RECORDS SUMMARY | 2024-09-04 13:23 | XMS_ITS | Encounter Summary ---
Author Organization [employer] Address [address] [facility] 7 [place] [address] Care Team Providers Care Project Assistant Name Role Phone Ciara Garcia MD Primary Care Provide r Reason for Visit * Reason Comments Med Refill Encounter Details Date Type Department Care Team ([facility] st Contact Info) Description 09/21/2023 Refill [facility] MEDICINE 230 [place], [place] [phone] Ciara Garcia MD 230 [place], [place] [phone] Other chronic pain Social History Tobacco Use [...] Visit [facility] OPTOMETRY 267 [place], [place] [phone] Gabriela Castañeda, OD 267 [place] [address] 09/26/2024 10:00 AM EDT Office Visit [facility] MEDICINE [address] [place] [address] Ciara Garcia MD [address] [place] [address] 11/12/2024 9:30 AM EDT Clinical Support [facility] MEDICINE [address] [place] [address] Jasmina Coronado, MARIBEL documented as of this encounter Visit Diagnoses Diagnosis Other chronic pain documented in this encounter Additional Health Concerns Assessment Noted Time PHQ-9 Depression Total Score: 0 12/29/19 23 11:51 AM EDT documented as of this encounter Care Teams Project Assistant Relationship Specialty Start Date End Date Ciara Garcia MD [address] [place] [address] PCP - General Family Medicine 06/04/19 documented as of this encounter
[2024-09-04 13:59] LABS: Estimated Average Glucose 146 mg/dL; Hemoglobin A1C 196.7488 umol/L; Hemoglobin A1c % 6.7 % (<6.0); Total Hemoglobin (HGBA1C) 3941.3763 umol/L
[2024-09-04 14:25] LABS: Anion Gap 12 (12-20); Blood Urea Nitrogen 15 mg/dL (9-16); Calcium 9.1 mg/dL (8.4-10.2); Carbon Dioxide 27 mmol/L (22-29); Chloride 110 mmol/L (96-108); Estimated Glomerular Filt Rate > 60; Glucose Random 120 mg/dL (60-115); Sodium 145 mmol/L (135-145)
[2024-09-04 14:41] LABS: Vitamin D 25-OH Total 15.8 ng/mL (>30)
[2024-09-04 14:54] LABS: Folate 5.3 ng/mL (> or = 4.0); Vitamin B12 594 pg/mL (200-900)
[2024-09-07 06:49] LABS: Methylmalonic Acid 179 nmol/L (69-390)
== END 2024-09-04 13:08 | disposition home or self-care (01) ==
LOC: HO.LAB 13:07
PROVIDERS: PCP Internal Medicine; Visit Provider Internal Medicine
DX: E11.9 Type 2 diabetes mellitus without complications (principal); R20.0 Anesthesia of skin; R20.2 Paresthesia of skin; E55.9 Vitamin D deficiency, unspecified
CPT/HCPCS: 36415; 80048; 82306; 82607; 82746; 83036; 83090; 83921

== ENCOUNTER 2024-10-04 12:28 | Outpatient (REF) | payer MEDICARE, MEDICAID, SELFPAY ==
--- NOTE | ~2024-10-04 | XR_ITS ---
EXAMINATION: XR CERVICAL SPINE CLINICAL INFORMATION: neck pain radiates to left arm COMPARISON: June 04, 2021 TECHNIQUE: 6 views of the cervical spine, inclusive of flexion and extension views, were obtained. FINDINGS: Marginal osteophyte formation and endplate sclerosis and decreased intervertebral disc height from C3 to C7. Bilateral neuroforamina stenosis secondary to osteophyte formation more conspicuous at C5-6 and C6-7 levels. No acute fracture or gross listhesis. No lytic or blastic lesions. The upper airway is patent. XR/XR cervical spine 4V IMPRESSION: Multilevel moderate to severe cervical spondylosis. Similar since prior exam. Electronically signed by: Jose Alejandro Vanessa MD 10/04/2024 02:38 PM EDT
--- OUTSIDE RECORDS SUMMARY | 2024-10-04 14:55 | XMS_ITS | Encounter Summary ---
Author Organization [employer] Address [address] [facility] 7t [place] [address] Care Team Providers Care Clerical Office Worker Name Role Phone Ciara Garcia MD Primary Care Provide r Reason for Visit * Reason Comments Med Refill Encounter Details Date Type Department Care Team ([facility] st Contact Info) Description 09/23/2024 Refill [facility] MEDICINE 230 [place] [address] Ciara Garcia MD [address] [place] [address] Cervicalgia Social History Tobacco Use Types Packs/Day Years Used Date Smoking Tobacco: Every Day Cigarettes 0.5 45 Passive Smoke Exposure: Current Smokeless Tobacco: Never Depression Answer Date Recorded Patient Health Questionnaire-9 Score 0 12/28/2022 Housing Stability Answer Date Recorded What is your housing situation today? I have magn[employer] 09/19/[address] you li ve. Do you have problems with any of the following? None of the above 09/19/2024 Food Insecurity Answer Date Recorded Within the past 12 months, y ou worried that your food would run out before you got money to buy more: Never True 09/19/2024 Within the past 12 months,th e food you bought just didn't last and you didn't have enough money to get more: Never True 12/2024 Transportation Answer Date Recorded In the past 12 months, has l ack of transportation kept you from medical appts, meetings, work or from getting things needed for daily living? No 09/19/2024 Utilities Answer Date Recorded In the past 12 months, has t he electric, gas, oil or water company threatened to shut off services in your home? No 09/19/2024 Depression Answer Date Recorded Patient Health Questionnaire-2 Score 0 12/28/2022 Internet Access Answer Date Recorded Internet Access Q1 Yes 09/19/2024 Internet Access Q2 Not on file 09/19/2024 Sex and Gender Information Value Date Recorded Sex Assigned at Male 05/16/2022 10:16 AM EDT Legal Sex Male 10:16 AM EDT Gender Identity Male 05/16/2022 10:16 AM EDT Sexual Orientation Straight 05/16/2022 10 :16 AM EDT documented as of this encounter Plan of Treatment Upcoming Encounters Date Type Department Care Team (Late st Contact Info) Description 11/12/2024 2:00 PM EDT Clinical Support [address] [address] 12/30/2024 9:45 AM EDT Office Visit [address] [address] Ciara Garcia MD [address] [place] [address] documented as of this encounter Visit Diagnoses Diagnosis Cervicalgia documented in this encounter Additional Health Concerns Assessment Noted Time PHQ-9 Depression Total Score: 0 12/29/19 23 11:51 AM EDT documented as of this encounter Care Teams Clerical Office Worker Relationship Specialty Start Date End Date Ciara Garcia MD [address] [place] [address] PCP - General Family Medicine 06/04/19 documented as of this encounter
--- OUTSIDE RECORDS SUMMARY | 2024-10-04 14:55 | XMS_ITS | Encounter Summary ---
Author Organization [employer] Address [address] [place] [address] 7t [place] [address] Care Team Providers Care Crab Butcher Name Role Phone Ciara Garcia MD Primary Care Provide r Encounter Details Date Type Department Care Team (Late st Contact Info) Description 09/26/2024 10:00 AM EDT Office Visit [facility] [address] [place] [address] Ciara Garcia MD [address] [place] [address] Primary hypertension (Primary Dx); Type 2 diabetes mellitus without complication, without long-term current use of insulin ([facility]/HCC); Vitamin D deficiency; Screening for lung cancer Social History Tobacco Use Types Packs/Day Years Used Date Smoking Tobacco: Every Day Cigarettes 0.5 45 Passive Smoke Exposure: Current Smokeless Tobacco: Never Alcohol Use Standard Drinks/Week Comments Never 0 (1 standard drink = 0.6 oz pur e alcohol) Depression Answer Date Recorded Patient Health Questionnaire-9 Score 0 09/26/2024 Patient Health Questionnaire-9 Score 0 09/26/2024 Last PHQ-9: Questionnaire Data Not on file 0 09/26/2024 Housing Stability Answer Date Recorded What is [...] Date Recorded Patient Health Questionnaire-2 Score 0 09/26/2024 Internet Access Answer Date Recorded Internet Access [...] Sign Reading Time Taken Comments Blood Pressure 127/73 09/26/2024 9:50 AM EDT Pulse 86 09/26/2024 9:50 AM EDT Temperature 35.4 ??C (95.7 ??F) 09/26/2024 9:50 AM ED T Respiratory Rate 16 09/26/2024 9:50 AM EDT Oxygen Saturation - - Inhaled Oxygen Concentration - - Weight 108 kg (238 lb) 09/26/2024 9:50 AM EDT Height 177.8 cm (5' 10 ) 09/26/2024 9:50 AM EDT Body Mass Index 34.15 09/26/2024 9:50 AM EDT documented in this encounter Progress Notes * Ciara Celaya MD - 09/26/2024 10:00 AM EDT SUBJECTIVE: Efraín Bravo is a 63 y.o. year old male who presents for Chronic Disease Management . Acute Concerns: None Social History Social History Narrative Not on file Patient Active Problem List Diagnosis Chronic low back pain Asthma Carcinoid syndrome Lumbar radiculopathy Degeneration of lumbosacral intervertebral disc Hypertension Hypersomnia Neuropathy of both feet Mixed sleep apnea Onychomycosis Diabetes (CMS/HCC) Bunion Diastolic dysfunction Neck pain Numbness of upper limb Chronic obstructive lung disease (CMS/HCC) Hyperlipidemia Obstructive sleep apnea syndrome Acute kidney injury (CMS/HCC) Class 1 obesity Hypoventilation Tobacco dependence syndrome Preventative health care Elevated LFTs Steatosis of liver Cacosmia [place] (nonalcoholic steatohepatitis) Kidney stones Cervicalgia Seasonal allergies Numbness and tingling Vitamin D deficiency Screening for lung cancer No family history on file. Review of Systems Constitutional: Negative. HENT: Negative. Respiratory: Negative. Cardiovascular: Negative. OBJECTIVE: Vitals: 09/26/24 0950 BP: 127/73 BP Location: Left arm Patient Position: Sitting BP Cuff Size: Large adult Pulse: 86 Resp: 16 Temp: 95.7 ??F (35.4 ??C) TempSrc: Oral Weight: 238 lb (108 kg) Height: 5' 10 (1.778 m) Physical Exam Constitutional: Appearance: Normal appearance. Cardiovascular: Rate and Rhythm: Normal rate and regular rhythm. Pulmonary: Effort: Pulmonary effort is normal. Breath sounds: Normal breath sounds. Abdominal: General: Abdomen is flat. Palpations: Abdomen is soft. Musculoskeletal: Right lower leg: No edema. Left lower leg: No edema. Neurological: Mental Status: He is alert. Follow Up: Follow up in about 3 months (around 12/27/2024) for chronic conditions . Current Outpatient Medications on File Prior to Visit Medication Sig Dispense Refill albuterol (Ventolin HFA) 108 (90 Base) MCG/ACT inhaler INHALE 2 PUFFS BY MOUTH EVERY 4 TO 6 HOURS IF NEEDED FOR BRONCOSPASM OR SHORTNESS OF BREATH 18 g 2 amLODIPine (Norvasc) 10 MG tablet Take 1 tablet by mouth at bed time. amLODIPine (Norvasc) 5 MG tablet Take 5 mg by mouth in the morning. Aspirin Low Dose 81 MG EC tablet TAKE 1 TABLET BY MOUTH EVERY DAY 90 tablet 3 baclofen (Lioresal) 10 MG tablet TAKE 1 TABLET (10 MG) BY MOUTH EVERY 8 (EIGHT) HOURS IF NEEDED FORMUSCLE SPASMS. 60 tablet 1 buPROPion SR (Wellbutrin SR) 150 MG 12 hr tablet TAKE 1 TABLET BY MOUTH TWICE A DAY. DO NOT CRUSH, SPLIT, OR CHEW. 180 tablet 0 cyanocobalamin (Vitamin B-12) 1000 MCG tablet Take 1 tablet (1,000 mcg) by mouth Once per day. 90 tablet 1 Diclofenac Sodium 1 % gel APPLY 2 GRAMS TO AFFECTED AREA TWICE A DAY 100 g 3 fluticasone (Flovent) 220 MCG/ACT inhaler Inhale 1 puff every 12 (twelve) hours. glucose blood (FREESTYLE LITE) test strip at bed time. ibuprofen 800 MG tablet TAKE 1 TABLET BY MOUTH EVERY 8 HOURS WITH FOOD 90 tablet 0 ipratropium (Atrovent HFA) 17 MCG/ACT inhaler Inhale 2 puffs every 6 (six) hours. lisinopril 10 MG tablet TAKE 1 TABLET BY MOUTH EVERY DAY IN THE MORNING 90 tablet 1 loratadine (Claritin) 10 MG tablet TAKE 1 TABLET BY MOUTH EVERYDAY AT BEDTIME 90 tablet 1 modafinil (Provigil) 200 MG tablet naloxone (Narcan) 4 mg/0.1 mL nasal spray Administer 1 spray (4 mg) into affected nostril(s) if needed for opioid reversal. 2 each 3 nicotine (Nicoderm CQ) 7 MG/24HR patch Place 1 patch on the skin 1 (one) time each day at the same time. 14 patch 0 nicotine (Nicoderm, Step 2) 14 MG/24HR patch PLACE 1 PATCH ON THE SKIN 1 TIME EACH DAY AT THE SAME TIME. 42 patch 0 nicotine polacrilex (Nicotine Mini) 4 MG lozenge Dissolve 1 lozenge (4 mg) in the mouth every 2 (two) hours if needed for smoking cessation. 100 lozenge 0 oxyCODONE ER (OxyCONTIN) 80 MG 12 hr tablet Take 1 tablet (80 mg) by mouth every 8 (eight) hours for 28 days. 84 tablet 0 simvastatin (Zocor) 40 MG tablet TAKE 1 TABLET BY MOUTH EVERY DAY IN THE EVENING 90 tablet 3 tamsulosin (Flomax) 0.4 MG 24 hr capsule TAKE 1 CAPSULE BY MOUTH EVERY DAY IN THE MORNING 90 capsule 0 [DISCONTINUED] baclofen (Lioresal) 10 MG tablet TAKE 1 TABLET (10 MG) BY MOUTH EVERY 8 (EIGHT) HOURS IF NEEDED FOR MUSCLE SPASMS. 60 tablet 1 [DISCONTINUED] ergocalciferol (Vitamin D-2) 1.25 MG (85753 UT) capsule Take 1 capsule (1.25 mg) by mouth 1 (one) time per week. 4 capsule 2 [DISCONTINUED] tamsulosin (Flomax) 0.4 MG 24 hr capsule TAKE 1 CAPSULE BY MOUTH EVERY DAY IN THE MORNING 90 capsule 0 No current facility-administered medications on file prior to visit. Problem List Items Addressed This Visit Diabetes ([facility]) Diabetes is: controlled - Lab Results Component Value Date HGBA1C 6.7 (H) 09/04/2024 HGBA1C 7.0 (A) 06/21/2024 HGBA1C 6.8 (A) 10/25/2023 - Lab Results Component Value Date MICROALBUR 248.0 06/05/2023 CREATININE 1.09 09/04/2024 -Changes: none - Diabetic eye exam:up to date - Diabetic foot exam:up to date - Continue lifestyle modifications - Continue current medications - Follow up: 3 months Relevant Medications semaglutide (Ozempic) 2 MG/1.5ML solution pen-injector metFORMIN (Glucophage) 500 MG tablet Other Relevant Orders POCT Glucose (Completed) Hypertension - Primary I advised: - Aerobic exercise to reduce BP. Initial goal of 30 min walk 3-5x/week. Increase as tolerated. - low-sodium diet (goal: <2g/day) and heart healthy diet such as DASH to reduce BP and prevent ASCVD. - Home BP monitoring 1-2 x day with goal of <140/90. - Seek immediate medical attention for chest pain, palpitations, SOB, syncope, or sudden changes inmental status. - Do not change or discontinue current prescriptions without first consulting health care provider Vitamin D deficiency Relevant Medications cholecalciferol (Vitamin D-3) 25 MCG (1000 UT) tablet Screening for lung cancer documented in this encounter Miscellaneous Notes * Assessment & Plan Note - Ciara Celaya MD - 09/26/2024 12:13 PM EDT Associated Problem(s): Diabetes ([facility]) Diabetes is: controlled - Lab Results Component Value Date HGBA1C 6.7 (H) 09/04/2024 HGBA1C 7.0 (A) 06/21/2024 HGBA1C 6.8 (A) 10/25/2023 - Lab Results Component Value Date MICROALBUR 248.0 06/05/2023 CREATININE 1.09 09/04/2024 -Changes: none - Diabetic eye exam:up to date - Diabetic foot exam:up to date - Continue lifestyle modifications - Continue current medications - Follow up: 3 months * Assessment & Plan Note - Ciara Celaya MD - 09/26/2024 12:13 PM EDT Associated Problem(s): Hypertension I advised: - Aerobic exercise to reduce BP. Initial goal of 30 min walk 3-5x/week. Increase as tolerated. - low-sodium diet (goal: <2g/day) and heart healthy diet such as DASH to reduce BP and prevent ASCVD. - Home BP monitoring 1-2 x day with goal of <140/90. - Seek immediate medical attention for chest pain, palpitations, SOB, syncope, or sudden changes inmental status. - Do not change or discontinue current prescriptions without first consulting health care provider documented in this encounter Plan of Treatment Upcoming Encounters Date Type Department Care Team (Late st Contact Info) Description 11/12/2024 2:00 PM EDT Clinical Support [facility] [address] [place] [phone] 12/30/2024 9:45 AM EDT Office Visit [facility] [address] [place] [address] Ciara Garcia MD [address] [place] [address] documented as of this encounter Procedures Procedure Name Priority Date/Time Associated Diagnosis Comments POCT GLUCOSE Routine 09/26/2024 9:52 AM EDT Type 2 diabetes mellitus without complication, without long-term current use of insulin ([facility]) documented in this encounter Results * (ABNORMAL) POCT Glucose (09/26/2024 9:52 AM EDT) [facility] Glucose Blood, POC 311(A) 60 - 200 mg/dL Comment:RANDOM QC Media Lot # [id number] Lot# Expiration Date [id number] Blood Capillary blood specimen / Unknown 09/26/2024 9:52 AM EDT Ciara Celaya MD POINT OF CARE TEST EN TER/EDIT ORDERABLES Final Result documented in this encounter Visit Diagnoses Diagnosis Primary hypertension- Primary Unspecified essential hypertension Type 2 diabetes mellitus without complication, without long-term current use of insulin ([facility]) Vitamin D deficiency Screening for lung cancer documented in this encounter Additional Health Concerns Assessment Noted Time PHQ-9 Depression Total Score: 0 09/27/19 25 9:51 AM EDT documented as of this encounter Care Teams Crab Butcher Relationship Specialty Start Date End Date Ciara Garcia MD [address] [place] [address] PCP - General Family Medicine 06/04/19 documented as of this encounter
--- OUTSIDE RECORDS SUMMARY | 2024-10-04 14:55 | XMS_ITS | Encounter Summary ---
Author Organization [employer] Address [address] [facility] 7t [place] [address] Care Team Providers Care Diaphragm Builder Name Role Phone Ciara Garcia MD Primary Care Provide r Reason for Visit * Reason Comments Med Refill Encounter Details Date Type Department Care Team ([facility] st Contact Info) Description 02/26/2024 Refill [facility] [address] [place] [address] Ciara Garcia MD [address] [place] [address] Cervicalgia; Tobacco dependence syndrome; Uncomplicated asthma, unspecified [...] Description 11/12/2024 2:00 PM EDT Clinical Support [address] [address] 12/30/2024 9:45 AM EDT Office Visit [address] [address] Ciara Garcia MD [address] [place] [address] documented as of this encounter Visit Diagnoses Diagnosis Cervicalgia Tobacco dependence syndrome Tobacco use disorder Uncomplicated asthma, unspecified asthma severity, unspecified whether persistent documented in this encounter Additional Health Concerns Assessment Noted Time PHQ-9 Depression Total Score: 0 12/29/19 23 11:51 AM EDT documented as of this encounter Care Teams Diaphragm Builder Relationship Specialty Start Date End Date Ciara Garcia MD [address] [place] [address] PCP - General Family Medicine 06/04/19 documented as of this encounter
--- OUTSIDE RECORDS SUMMARY | 2024-10-04 14:55 | XMS_ITS | Data Portability ---
Author Organization [place] - [facility], [facility] Address [address] [place] [phone] Assessment Encounter Date Assessment Date Assessment LastModified [...] nasal spray,padmini pension [phone] [email or web address] [id number], [address] [place], [address], 10:52:18 Patient TargetsNo targets recorded. Patient InstructionsNo instructions recorded. Reason for Referral None Reported. Problems Name Problem SNOMED Code Status Onset Date Resolution Date Notes Provider Name and Address Organization Details Recorded Time Tobacco dependence caused by cigarettes 8640351162786 9107 Active 2023 KATHRYN KOWALSKI MD [address] [place] [address], [phone] 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 10:51:12 Allergic rhinitis 64589796 Active 2023 KATHRYN KOWALSKI MD [address] [facility] [address], [place], [address], [facility] 4 10:51:19 Problem Notes None recorded. Procedures Surgical History Date Name Laterality Status Provider Name and Address Organization Details Recorded Time 02/22/2024 NasalEndos copy_DP completed KATHRYN KOWALSKI MD [address] [facility] [address], [place], [address], [facility] 02/22/2024 10:50:34 Imaging Results None recorded. [...] Updated DateTime 02/22/2024 175.26 cm 32.5 kg/m2 24244.32 g Lorna Ace [place] - [facility] 02/22/2024 10:40:24 Social History None recorded. Functional Status None recorded. Mental Status None recorded. Family History Nothing Reported. Medical History No medical history recorded. Past Encounters Encounter ID Performer Location Encounter Start Date Encounter Closed Date Diagnosis/Indication Diagnosis SNOMED-CT Code Diagnosis ICD10 Code Diagnosis Note [id number] KATHRYN KOWALSKI MD [facility] [address] [phone] 02/22/2024 09:50:45 02/22/2024 10:54:27 Tobacco dependence caused by cigarettes 9519249167 5300902 F17.210 Anterior rhinorrhea 2772 [address]86 J34.89 Allergic rhinitis 524418 04 J30.9 Health Concerns Section Related Observation LastModified by Organization Detai ls LastModified Time None Recorded Concern Status LastModified by Organization Details LastModified Time None Recorded Advance Directives Directive None Recorded Payers Encounter Date Sequence Insurance Name Policy Number Policy Akers Covered Member ID Akers Member ID Guarantor Name 02/22/2024 1 [place] [employer] Efraín Bravo [id number] Efraín Coffman Jr 02/22/2024 2 [place] [facility] Efraín Bravo [id number] Efraín Vallesjeff Jerry Notes Date Note Type Note Provider Name and Address Organization Details Recorded Time 02/22/2024 text/html rhinorrheafoul o saige in mucusonset around summer 2022no trial of abxuses nasal lavage twice dailyno prior nose surgery or imaging+nasal congestion fluctuate depending on how laying downtobacco - 1/2ppd 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
--- OUTSIDE RECORDS SUMMARY | 2024-10-04 14:55 | XMS_ITS | Encounter Summary ---
Author Organization [employer] Address [address] [facility] 7 [place] [address] Care Team Providers Care Sash Clamp Operator Name Role Phone Ciara Garcia MD Primary Care Provide r Reason for Visit * Reason Onset Date Comments Med Refill 09/24/2024 Encounter Details Date Type Department Care Team ([facility] st Contact Info) Description 09/24/2024 Refill [facility] [address] [place] [address] Ciara Garcia MD [address] [place] [address] Social History Tobacco Use Types Packs/Day Years [...] Description 11/12/2024 2:00 PM EDT Clinical Support [facility] [address] [place] [address] 12/30/2024 9:45 AM EDT Office Visit [facility] [address] [place] [address] Ciara Garcia MD [address] [place] [address] documented as of this encounter Visit Diagnoses Not on filedocumented in this encounter Additional Health Concerns Assessment Noted Time PHQ-9 Depression Total Score: 0 12/29/19 23 11:51 AM EDT documented as of this encounter Care Teams Sash Clamp Operator Relationship Specialty Start Date End Date Ciara Garcia MD [address] [place] [address] PCP - General Family Medicine 06/04/19 documented as of this encounter
--- OUTSIDE RECORDS SUMMARY | 2024-10-04 14:55 | XMS_ITS | Encounter Summary ---
Author Organization [employer] Address [address] [facility] 7t [place] [address] Care Team Providers Care Furniture Sander Name Role Phone Ciara Garcia MD Primary Care Provide r Encounter Details Date Type Department Care Team (Late st Contact Info) Description 09/02/2022 Orders Only [facility] [address] [place], [place] [phone] Jason Hatfield MD [address] [place] [address] Social History Tobacco Use Types Packs/Day Years [...] 2:00 PM EDT Clinical Support [facility] [address] [place] [address] 12/30/2024 9:45 AM EDT Office Visit [facility] [address] [place] [address] Ciara Garcia MD [address] [place] [address] documented as of this encounter Procedures Procedure Name Priority Date/Time Associated Diagnosis Comments ALBUMIN, RANDOM URINE W/CREATININE Routine 06/05/2023 2:50 PM EST documented in this encounter Results * (ABNORMAL) Albumin, Random Urine W/Creatinine (06/05/2023 2:50 PM EST) Creatinine, Urine 301.05 mg/dL [facility] Microalbumin Urine 248.0 mg/L [facility] Microalbum Creatinine Ratio Ur 82.3(H) <30 ug/mg cr [facility] Comment:Albumin/Creatinine R atio Reference Ranges: Normal: < 30 ug/mg creatinine Microalbuminuria: 30 - 300 ug/mg creatinineClinical Albuminuria: > 300 ug/mg creatinine 06/05/2023 2:50 PM EST 06/05/2023 4:05 PM EST Ciara Celaya MD LAB URINE ORDERABLES Final Result [facility] [address] [place] [phone] documented in this encounter Visit Diagnoses Not on filedocumented in this encounter Care Teams Furniture Sander Relationship Specialty Start Date End Date Ciara Garcia MD [facility] [place] [address] PCP - General Family Medicine 06/04/19 documented as of this encounter
--- OUTSIDE RECORDS SUMMARY | 2024-10-04 14:56 | XMS_ITS | Encounter Summary ---
Author Organization [employer] Address [address] [facility] 7 [place] [address] Care Team Providers Care Crown Attacher Name Role Phone Ciara Garcia MD Primary Care Provide r Reason for Visit * Reason Onset Date Comments Nurse Triage 10/02/2024 Encounter Details Date Type Department Care Team ([facility] st Contact Info) Description 10/02/2024 Telephone [facility] [address] [place] [address] Ciara Garcia MD [address] [place] [address] Nurse Triage Social History Tobacco Use Types [...] encounter Miscellaneous Notes * Telephone Encounter - Xi Ratliff RN - 10/02/2024 12:05 PM EDT called pt to triage, spoke to pt. pt states worsening chronic neck pain, and requesting appt. pt states had surgery on his neck several years ago. pt states mild numbness bilateral fingers, difficulty with ROM. no available appt with PCP and given appt with blue team provider Monday at 11:15 for exam. advised home care: rest, ice, heat, OTC pain reliever as needed, and call back if worsening or new concerns. pt understands and agrees with plan. insurance verified. Protocol Used: Neck Pain or Stiffness (Adult) Protocol-Based Disposition: See in Office or Video Visit within 3 Days Video visit offer not recorded Positive Triage Questions: * Moderate neck pain (e.g., interferes with normal activities like work or school) and present >3 days * Neck pain lasts > 2 weeks * Pain shoots (radiates) into arm or hand * All higher-acuity triage questions were negative Care Advice Discussed: * Reassurance and Education - Neck Pain or Stiffness * Pain Medicines * Pain Medicines - Extra Notes and Warnings * Sleep * Activity * Stretching Exercises * Reasons To Call Back - Moderate pain (such as interferes with normal activities) lasts over 3 days - Pain lasts over 2 weeks - Pain begins to shoot into the arms - Numbness or weakness occurs in your arms or legs - You become worse * Telephone Encounter - Bhumika Estrada - 10/02/2024 11:33 AM EDT Symptom: Neck Pain - Not From Injury Outcome: Schedule an urgent appointment (within 4 hours) or talk to a nurse or provider soon Reason: Getting worse The caller accepted this outcome. documented in this encounter Plan of Treatment Upcoming Encounters Date Type Department Care Team (Late st Contact Info) Description 11/12/2024 2:00 PM EDT Clinical Support [address] [address] 12/30/2024 9:45 AM EDT Office Visit [address] [address] Ciara Garcia MD [address] [place] [phone] documented as of this encounter Visit Diagnoses Not on filedocumented in this encounter Additional Health Concerns Assessment Noted Time PHQ-9 Depression Total Score: 0 09/27/19 25 9:51 AM EDT documented as of this encounter Care Teams Crown Attacher Relationship Specialty Start Date End Date Ciara Garcia MD [address] [place] [address] PCP - General Family Medicine 06/04/19 documented as of this encounter
--- OUTSIDE RECORDS SUMMARY | 2024-10-04 14:56 | XMS_ITS | Encounter Summary ---
Author Organization [employer] Address [address] [facility] 7t [place] [address] Care Team Providers Care Riverine Assault Craft Crewman Name Role Phone Ciara Garcia MD Primary Care Provide r Reason for Visit * Reason Comments Med Refill Encounter Details Date Type Department Care Team ([facility] st Contact Info) Description 06/01/2024 Refill [facility] [address] [place] [address] Ciara Garcia MD [address] [place] [address] Cervicalgia; Tobacco dependence syndrome; Uncomplicated asthma, unspecified [...] Description 11/12/2024 2:00 PM EDT Clinical Support [address] [address] 12/30/2024 9:45 AM EDT Office Visit [address] [address] Ciara Garcia MD [address] [place] [address] documented as of this encounter Visit Diagnoses Diagnosis Cervicalgia Tobacco dependence syndrome Tobacco use disorder Uncomplicated asthma, unspecified asthma severity, unspecified whether persistent documented in this encounter Additional Health Concerns Assessment Noted Time PHQ-9 Depression Total Score: 0 12/29/19 23 11:51 AM EDT documented as of this encounter Care Teams Riverine Assault Craft Crewman Relationship Specialty Start Date End Date Ciara Garcia MD [address] [place] [address] PCP - General Family Medicine 06/04/19 documented as of this encounter
--- OUTSIDE RECORDS SUMMARY | 2024-10-04 14:56 | XMS_ITS | Encounter Summary ---
Author Organization [employer] Address [address] [place] [address] [place] [address] Care Team Providers Care Tire Regrooving Machine Operator Name Role Phone Ciara Garcia MD Primary Care Provide r Reason for Visit * Reason Comments Med Refill Encounter Details Date Type Department Care Team (Late st Contact Info) Description 12/06/2022 Refill [facility] MEDICINE [address] [place] [phone] Mary Trejo, MARKY [address] [place] [address] [place] [address] Essential hypertension Social History Tobacco Use Types [...] Support [facility] MED[facility]INE [address] [place] [address] [place] [address] 12/30/2024 9:45 AM EDT Office Visit [facility] [address] [place] [address] Ciara Garcia MD 230 [place] [address] documented as of this encounter Visit Diagnoses Diagnosis Essential hypertension Unspecified essential hypertension documented in this encounter Care Teams Tire Regrooving Machine Operator Relationship Specialty Start Date End Date Ciara Garcia MD [address] [place] [phone] PCP - General Family Medicine 06/04/19 documented as of this encounter
--- OUTSIDE RECORDS SUMMARY | 2024-10-04 14:56 | XMS_ITS | Encounter Summary ---
Author Organization [employer] Address [address] [place] [address] 7 [place] [address] Care Team Providers Care Retail Tire Sales Manager Name Role Phone Ciara Garcia MD Primary Care Provide r Reason for Visit * Reason Onset Date Comments Prior Authorization 10/04/2024 [facility]: Ozempic Encounter Details Date Type Department Care Team ([facility] st Contact Info) Description 10/04/2024 Telephone [facility] MEDICINE [address] [place] [address] Ciara Garcia MD 230 [place] [address] Prior Authorization ([facility]: Ozempjoseph) Social History Tobacco Use Types Packs/Day Years [...] encounter Miscellaneous Notes * Telephone Encounter - Montse Ruvalcaba - 10/04/2024 11:50 AM EDT PA initiated on Covermymeds for Ozempic . Approval/denial pending. [place]: [id number] Rx #: [id number] documented in this encounter Plan of Treatment Upcoming Encounters Date Type Department Care Team (Late st Contact Info) Description 11/12/2024 2:00 PM EDT Clinical Support [facility] MEDICINE [address] [place] [phone] 12/30/2024 9:45 AM EDT Office Visit [facility] MEDICINE [address] [place] [address] Ciara Garcia MD [address] [place] [address] documented as of this encounter Visit Diagnoses Not on filedocumented in this encounter Additional Health Concerns Assessment Noted Time PHQ-9 Depression Total Score: 0 09/27/19 25 9:51 AM EDT documented as of this encounter Care Teams Retail Tire Sales Manager Relationship Specialty Start Date End Date Ciara Garcia MD 230 [place] [address] PCP - General Family Medicine 06/04/19 documented as of this encounter
--- OUTSIDE RECORDS SUMMARY | 2024-10-04 14:56 | XMS_ITS | Encounter Summary ---
Author Organization [employer] Address 75 [facility] 7t [place] [address] Care Team Providers Care Test Carrier Name Role Phone Ciara Garcia MD Primary Care Provide r Encounter Details Date Type Department Care Team (Latest Contact Info) Description 09/26/2024 Travel Social History Tobacco Use Types Packs/Day [...] Description 11/12/2024 2:00 PM EDT Clinical Support [address] [address] 12/30/2024 9:45 AM EDT Office Visit [facility] MEDICINE [address] [place] [address] Ciara Garcia MD [address] [place] [address] documented as of this encounter Visit Diagnoses Not on filedocumented in this encounter Additional Health Concerns Assessment Noted Time PHQ-9 Depression Total Score: 0 09/27/19 25 9:51 AM EDT documented as of this encounter Care Teams Test Carrier Relationship Specialty Start Date End Date Ciara Garcia MD [address] [place] [address] PCP - General Family Medicine 06/04/19 documented as of this encounter
--- OUTSIDE RECORDS SUMMARY | 2024-10-04 14:56 | XMS_ITS | Encounter Summary ---
Author Organization [employer] Address 75 [facility] 7 [place] [address] Care Team Providers Care Asbestos Pipe Supervisor Name Role Phone Ciara Garcia MD Primary Care Provide r Reason for Visit * Reason Onset Date Comments Med Refill 09/10/2024 Encounter Details Date Type Department Care Team ([facility] st Contact Info) Description 09/10/2024 Refill [facility] MEDICINE 230 [place] [address] Ciara Garcia MD 230 [place] [address] Other chronic pain Social History Tobacco Use [...] encounter Miscellaneous Notes * Telephone Encounter - Carlos Barnes - 09/10/2024 9:27 AM EST TC from pt requesting medication refill. Medications needing refill : oxyCODONE ER (OxyCONTIN) 80 MG 12 hr tablet To be sent to: [facility]/pharmacy #[id number] [place] [address] - [address] [place] [address] documented in this encounter Plan of Treatment Upcoming Encounters Date Type Department Care Team (Late st Contact Info) Description 11/12/2024 2:00 PM EDT Clinical Support [facility] MEDICINE [address] [place] [address] 12/30/2024 9:45 AM EDT Office Visit [facility] MEDICINE [address] [place] [address] Ciara Garcia MD [address] [place] [address] documented as of this encounter Visit Diagnoses Diagnosis Other chronic pain documented in this encounter Additional Health Concerns Assessment Noted Time PHQ-9 Depression Total Score: 0 12/29/19 23 11:51 AM EDT documented as of this encounter Care Teams Asbestos Pipe Supervisor Relationship Specialty Start Date End Date Ciara Garcia MD [address] [place] [address] PCP - General Family Medicine 06/04/19 documented as of this encounter
--- OUTSIDE RECORDS SUMMARY | 2024-10-04 14:56 | XMS_ITS | Encounter Summary ---
Author Organization [employer] [facility] Address 75 [facility] 7 [place] [address] Care Team Providers Care Gas Plumbing Inspector Name Role Phone Ciara Garcia MD Primary Care Provide r Encounter Details Date Type Department Care Team ([facility] st Contact Info) Description 09/27/2024 Population Health Risk Score [facility] () Department [address] [place] [phone] Provider, Population Health Generic Social History Tobacco Use Types Packs/Day Years [...] Description 11/12/2024 2:00 PM EDT Clinical Support [address] [address] 12/30/2024 9:45 AM EDT Office Visit [facility] MEDICINE [address] [place] [address] Ciara Garcia MD [address] [place] [address] documented as of this encounter Visit Diagnoses Not on filedocumented in this encounter Additional Health Concerns Assessment Noted Time PHQ-9 Depression Total Score: 0 09/27/19 25 9:51 AM EDT documented as of this encounter Care Teams Gas Plumbing Inspector Relationship Specialty Start Date End Date Ciara Garcia MD [address] [place] [phone] PCP - General Family Medicine 06/04/19 documented as of this encounter
--- OUTSIDE RECORDS SUMMARY | 2024-10-04 14:56 | XMS_ITS | Encounter Summary ---
Author Organization [employer] Address 75 [facility] 7t [place] [address] Care Team Providers Care Senior Care Specialist Name Role Phone Ciara Garcia MD Primary Care Provide r Reason for Visit * Reason Comments Med Refill Encounter Details Date Type Department Care Team ([facility] st Contact Info) Description 05/06/2024 Refill [facility] MEDICINE 230 [place] [address] Ciara Garcia MD 230 [place] [address] Cervicalgia; Tobacco dependence syndrome Social History Tobacco [...] Description 11/12/2024 2:00 PM EDT Clinical Support [facility] MEDICINE [address] [place] [address] 12/30/2024 9:45 AM EDT Office Visit [facility] MEDICINE [address] [place] [address] Ciara Garcia MD [address] [place] [address] documented as of this encounter Visit Diagnoses Diagnosis Cervicalgia Tobacco dependence syndrome Tobacco use disorder documented in this encounter Additional Health Concerns Assessment Noted Time PHQ-9 Depression Total Score: 0 12/29/19 23 11:51 AM EDT documented as of this encounter Care Teams Senior Care Specialist Relationship Specialty Start Date End Date Ciara Garcia MD [address] [place] [address] PCP - General Family Medicine 06/04/19 documented as of this encounter
--- OUTSIDE RECORDS SUMMARY | 2024-10-04 14:56 | XMS_ITS | Encounter Summary ---
Author Organization [employer] Address 75 [facility] 7t [place] [address] Care Team Providers Care Residential Building Inspector Name Role Phone Ciara Garcia MD Primary Care Provide r Reason for Visit * Reason Comments Med Refill Encounter Details Date Type Department Care Team ([facility] st Contact Info) Description 06/19/2024 Refill [facility] 230 [place] [address] Jason [place] MD 230 [place] [address] Tobacco dependence Social History Tobacco Use Types [...] Description 11/12/2024 2:00 PM EDT Clinical Support [facility] MEDICINE [address] [place] [address] 12/30/2024 9:45 AM EDT Office Visit [facility] MEDICINE [address] [place] [phone] Ciara Garcia MD [address] [place] [address] documented as of this encounter Visit Diagnoses Diagnosis Tobacco dependence Tobacco use disorder documented in this encounter Additional Health Concerns Assessment Noted Time PHQ-9 Depression Total Score: 0 12/29/19 23 11:51 AM EDT documented as of this encounter Care Teams Residential Building Inspector Relationship Specialty Start Date End Date Ciara Garcia MD [address] [place] [address] PCP - General Family Medicine 06/04/19 documented as of this encounter
--- OUTSIDE RECORDS SUMMARY | 2024-10-04 14:56 | XMS_ITS | Encounter Summary ---
Author Organization [employer] Address [address] [place] [address] 7 [place] [address] Care Team Providers Care Access Control Specialist Name Role Phone Ciara Garcia MD Primary Care Provide r Reason for Visit * Reason Onset Date Comments Results 09/09/2024 Encounter Details Date Type Department Care Team ([facility] st Contact Info) Description 09/09/2024 Telephone [facility] MEDICINE 230 [place] [address] Ciara Garcia MD 230 [place] [address] Results Social History Tobacco Use Types Packs/Day Years [...] encounter Miscellaneous Notes * Telephone Encounter - Giuliana Olvera RN - 09/09/2024 10:36 AM EST TC placed to patient [phone] in regards to below message, RN spoke to patients (Kenisha) inregards to below message. verbalized understanding and did not have any further questions/concerns. advised vitamin D is WEEKLY not daily. to f/u PRN. ----- Message from Ciara Celaya MD sent at 09/09/2024 10:21 AM EST ----- Please let patient know I reviewed his labs his vitamin B and D are a little low, I renewed his vitamin D supplement, I saw vitamin B was already send please advise to take them as prescribed thank you documented in this encounter Plan of Treatment Upcoming Encounters Date Type Department Care Team (Late st Contact Info) Description 11/12/2024 2:00 PM EDT Clinical Support [facility] MEDICINE [address] [place] [phone] 12/30/2024 9:45 AM EDT Office Visit [facility] MEDICINE [address] [place] [address] [phone] Ciara Garcia MD 230 [place] [address] documented as of this encounter Visit Diagnoses Not on filedocumented in this encounter Additional Health Concerns Assessment Noted Time PHQ-9 Depression Total Score: 0 12/29/19 23 11:51 AM EDT documented as of this encounter Care Teams Access Control Specialist Relationship Specialty Start Date End Date Ciara Garcia MD 230 [place] [address] PCP - General Family Medicine 06/04/19 documented as of this encounter
--- OUTSIDE RECORDS SUMMARY | 2024-10-04 14:56 | XMS_ITS | Encounter Summary ---
Author Organization [employer] Address 75 [facility] 7 [place] [address] Care Team Providers Care Radiologic Technologist Mammogram Name Role Phone Ciara Garcia MD Primary Care Provide r Reason for Visit * Reason Onset Date Comments FYI 06/20/2024 Encounter Details Date Type Department Care Team ([facility] Contact Info) Description 06/20/2024 Telephone [facility] MEDICINE 230 [place] [address] Ciara Garcia MD 230 [place] [address] FYI Social History Tobacco Use Types Packs/Day [...] from spouse requesting call back to inform PUBLIC RELATIONS DIRECTOR nurse that pt has received medication. documented in this encounter Plan of Treatment Upcoming Encounters Date Type Department Care Team (Late st Contact Info) Description 11/12/2024 2:00 PM EDT Clinical Support [facility] MEDICINE [address] [place] [address] 12/30/2024 9:45 AM EDT Office Visit [facility] MEDICINE [address] [place] [address] Ciara Garcia MD [address] [place] [address] documented as of this encounter Visit Diagnoses Not on filedocumented in this encounter Additional Health Concerns Assessment Noted Time PHQ-9 Depression Total Score: 0 12/29/19 23 11:51 AM EDT documented as of this encounter Care Teams Radiologic Technologist Mammogram Relationship Specialty Start Date End Date Ciara Garcia MD [address] [place] [phone] PCP - General Family Medicine 06/04/19 documented as of this encounter
--- OUTSIDE RECORDS SUMMARY | 2024-10-04 14:56 | XMS_ITS | Encounter Summary ---
Author Organization [employer] Address 75 [facility] 7t [place] [address] Care Team Providers Care Dry Plasterer Helper Name Role Phone Ciara Garcia MD Primary Care Provide r Encounter Details Date Type Department Care Team (Late st Contact Info) Description 10/04/2024 11:15 AM EDT Office Visit [facility] MEDICINE 230 [place] [address] Chio Velazquez FNP 230 [place] [address] Cervicalgia (Primary Dx); Type 2 diabetes mellitus without complication, without long-term current use of insulin ([facility]); Chronic low back pain with bilateral sciatica, [...] Sign Reading Time Taken Comments Blood Pressure 126/71 10/04/2024 11:39 AM EDT Pulse 75 10/04/2024 11:39 AM EDT Temperature 36.4 ??C (97.6 ??F) 10/04/2024 11:39 AM E DT Respiratory Rate 18 10/04/2024 11:39 AM EDT Oxygen Saturation 98% 10/04/2024 11:39 AM EDT Inhaled Oxygen Concentration - - Weight 109 kg (240 lb 6.4 oz) 10/04/2024 11:39 A M EDT Height 175.3 cm (5' 9 ) 10/04/2024 11:39 AM EDT Body Mass Index 35.5 10/04/2024 11:39 AM EDT documented in this encounter Plan of Treatment Upcoming Encounters Date Type Department Care Team (Late st Contact Info) Description 11/12/2024 2:00 PM EDT Clinical Support [facility] MEDICINE [address] [place] [address] 12/30/2024 9:45 AM EDT Office Visit [facility] MEDICINE [address] [place] [address] Ciara Garcia MD [address] [place] [address] documented as of this encounter Procedures Procedure Name Priority Date/Time Associated Diagnosis Comments XR CERVICAL SPINE 4V Routine 10/04/2024 12:30 PM EDT Cervicalgia POCT GLUCOSE Routine 10/04/2024 12:11 PM EDT Type 2 diabetes mellitus without complication, without long-term current use of insulin ([facility]) documented in this encounter Results * XR CERVICAL SPINE 4V (10/04/2024 12:30 PM EDT) Anatomical Region Laterality Modality Abdomen Radiographic Lilibeth ging 10/04/2024 12:3 0 PM EDT Narrative 10/04/2024 2:42 PM EDT ?[facility] ?[address] ?[place] [address] ?XRay Report ? Signed ? Patient: Efraín Bravo S Jr ?MR#: [id number] ?? [id number] ? : 1960 ?Acct:[id number] ? Age/Sex: 63 / M ?ADM Date: 10/04/24 ? Loc: HO.HHCX ? Attending Dr: Chio Velazquez GAS BURNER OPERATOR ? Ordering Physician: Chio Velazquez GAS BURNER OPERATOR ?? Date of Service: 10/04/24 ?? Procedure(s): XR cervical spine 4V ?? Accession Number(s): [id number] ? cc: Chio Velazquez GAS BURNER OPERATOR ? EXAMINATION: ?? XR CERVICAL SPINE ? CLINICAL INFORMATION: ?? neck pain radiates to left arm ? COMPARISON: ?? June 04, 2021 ? TECHNIQUE: ?? 6 views of the cervical spine, inclusive of flexion and extension ?? views, were obtained. ? FINDINGS: ?? Marginal osteophyte formation and endplate sclerosis and decreased ?? intervertebral disc height from C3 to C7. ?? Bilateral neuroforamina stenosis secondary to osteophyte formation more ?? conspicuous at C5-6 and C6-7 levels. ?? No acute fracture or gross listhesis. No lytic or blastic lesions. The ?? upper airway is patent. ? XR/XR cervical spine 4V ?? IMPRESSION: ?? Multilevel moderate to severe cervical spondylosis. Similar since prior ?? exam. ? Electronically signed by: ??Jose Alejandro Vanessa MD ??10/04/2024 02:38 PM ?? EDT RP ? Dictated By: ?Jose Alejandro Haney MD ? Signed By: ?<Electronically signed by Jose Alejandro Stockton MD in OV> ? 10/04/24 1438 ? DD/ 1230 ? TD/TT: 10/04/24 1300 ? Center Hole Reamer: ? Procedure Note [email or web address], Image - 10/04/[address] [address] XRay Report Signed Patient: Efraín Bravo [facility]#: [id number] : 9Acct:[id number] Age/Sex: 63 / MADM Date: 10/04/24 [facility]: Chio NEGRO Ordering Physician: Chio Velazquez Date of Service: 10/04/24 Procedure(s): XR cervical spine 4V Accession Number(s): [id number] cc: Chio Velazquez EXAMINATION: XR CERVICAL SPINE CLINICAL INFORMATION: neck pain radiates to left arm COMPARISON: June 04, 2021 TECHNIQUE: 6 views of the cervical spine, inclusive of flexion and extension views, were obtained. FINDINGS: Marginal osteophyte formation and endplate sclerosis and decreased intervertebral disc height from C3 to C7. Bilateral neuroforamina stenosis secondary to osteophyte formation more conspicuous at C5-6 and C6-7 levels. No acute fracture or gross listhesis. No lytic or blastic lesions. The upper airway is patent. XR/XR cervical spine 4V IMPRESSION: Multilevel moderate to severe cervical spondylosis. Similar since prior exam. Electronically signed by: Jose Alejandro Vanessa MD 10/04/2024 02:38 PM EDT Dictated By: Jose Alejandro Haney MD Signed By: <Electronically signed by Jose Alejandro Stockton MDin OV> 10/04/24 1438 DD/ 1230 TD/TT: 10/04/24 1300 Center Hole Reamer: Chio DUP IMG XR PROCEDURES Final Result * POCT Glucose (10/04/2024 12:11 PM EDT) Glucose Blood, POC 124 60 - 200 mg/dL QC Media Lot # [id number] Lot# Expiration Date [id number] Blood Capillary blood specimen / Unknown 10/04/2024 12:11 PM EDT Chio DUP POINT OF CARE TEST ENTER/EDIT ORDERABLES Final Result documented in this encounter Visit Diagnoses Diagnosis Cervicalgia- Primary Type 2 diabetes mellitus without complication, without long-term current use of insulin ([facility]) Chronic low back pain with bilateral sciatica, unspecified back pain laterality documented in this encounter Additional Health Concerns Assessment Noted Time PHQ-9 Depression Total Score: 0 09/27/19 25 9:51 AM EDT documented as of this encounter Care Teams Dry Plasterer Helper Relationship Specialty Start Date End Date Ciara Garcia MD [address] [place] [address] PCP - General Family Medicine 06/04/19 documented as of this encounter
--- OUTSIDE RECORDS SUMMARY | 2024-10-04 14:56 | XMS_ITS | Encounter Summary ---
Author Organization [employer] Address 75 [facility] 7 [place] [address] Care Team Providers Care Regulatory Compliance Coordinator Name Role Phone Ciara Garcia MD Primary Care Provide r Reason for Visit * Reason Comments Med Refill Encounter Details Date Type Department Care Team ([facility] st Contact Info) Description 09/06/2024 Refill [facility] MEDICINE 230 [place] [address] Ciara Garcia MD 230 [place] [address] Essential hypertension Social History Tobacco Use Types [...] Description 11/12/2024 2:00 PM EDT Clinical Support [facility] MEDICINE [address] [place] [address] 12/30/2024 9:45 AM EDT Office Visit [facility] MEDICINE [address] [place] [address] Ciara Garcia MD [address] [place] [address] documented as of this encounter Visit Diagnoses Diagnosis Essential hypertension Unspecified essential hypertension documented in this encounter Additional Health Concerns Assessment Noted Time PHQ-9 Depression Total Score: 0 12/29/19 23 11:51 AM EDT documented as of this encounter Care Teams Regulatory Compliance Coordinator Relationship Specialty Start Date End Date iCara Garcia MD [address] [place] [address] PCP - General Family Medicine 06/04/19 documented as of this encounter
--- OUTSIDE RECORDS SUMMARY | 2024-10-04 14:56 | XMS_ITS | Encounter Summary ---
Author Organization [employer] Address 75 [facility] 7 [place] [address] Care Team Providers Care Pastry Finisher Name Role Phone Ciara Garcia MD Primary Care Provide r Reason for Visit * Reason Comments Med Refill Encounter Details Date Type Department Care Team ([facility] st Contact Info) Description 06/10/2024 Refill [facility] MED[facility]INE 230 [place] [address] Ciara Garcia MD 230 [place] [address] Essential hypertension Social History Tobacco Use Types [...] Description 11/12/2024 2:00 PM EDT Clinical Support [facility] MEDICINE [address] [place] [address] 12/30/2024 9:45 AM EDT Office Visit [facility] MED[facility]INE [address] [place] [address] Ciara Garcia MD [address] [place] [address] documented as of this encounter Visit Diagnoses Diagnosis Essential hypertension Unspecified essential hypertension documented in this encounter Additional Health Concerns Assessment Noted Time PHQ-9 Depression Total Score: 0 12/29/19 23 11:51 AM EDT documented as of this encounter Care Teams Pastry Finisher Relationship Specialty Start Date End Date Ciara Garcia MD [address] [place] [phone] PCP - General Family Medicine 06/04/19 documented as of this encounter
--- OUTSIDE RECORDS SUMMARY | 2024-10-04 14:56 | XMS_ITS | Encounter Summary ---
Author Organization [employer] Address [address] [facility] 7t [place] [address] Care Team Providers Care Electrical And Instrument Technician Name Role Phone Ciara Garcia MD Primary Care Provide r Reason for Visit * Reason Comments Pre-visit Planning SDOH screening negat duane and tobacco screening negative Encounter Details Date Type Department Care Team ([facility] st Contact Info) Description 09/19/2024 Patient Outreach [facility] [address] [place] [address] Ciara Garcia MD [address] [place] [address] Pre-visit Planning (SDOH screening negative and tobacco screening negative) Social History Tobacco Use Types Packs/Day Years [...] as of this encounter Progress Notes * Evon Estrada - 09/19/2024 9:14 AM EST CC Evon placed successful outbound call to patient for pre-visit planning. Patient name and confirmed. Patient confirms appt date and time, and has transportation. Biggest concern for appointment at this time is none Patient advised to bring to appointment a photo id and insurance card. Appropriate screenings completed in anticipation of appointment. documented in this encounter Plan of Treatment Upcoming Encounters Date Type Department Care Team (Late st Contact Info) Description 11/12/2024 2:00 PM EDT Clinical Support [facility] [address] [place] [address] 12/30/2024 9:45 AM EDT Office Visit [facility] [address] [place] [address] Ciara Garcia MD [address] [place] [address] documented as of this encounter Visit Diagnoses Not on filedocumented in this encounter Additional Health Concerns Assessment Noted Time PHQ-9 Depression Total Score: 0 12/29/19 23 11:51 AM EDT documented as of this encounter Care Teams Electrical And Instrument Technician Relationship Specialty Start Date End Date Ciara Garcia MD [address] [place] [address] [place] [address] PCP - General Family Medicine 06/04/19 documented as of this encounter
--- OUTSIDE RECORDS SUMMARY | 2024-10-04 14:56 | XMS_ITS | Encounter Summary ---
Author Organization [employer] Address [address] [facility] 7t [place] [address] Care Team Providers Care Green Energy Marketing Analyst Name Role Phone Ciara Garcia MD Primary Care Provide r Reason for Visit * Reason Onset Date Comments telephone call 09/12/2024 Med Refill 09/12/2024 Encounter Details Date Type Department Care Team ([facility] st Contact Info) Description 09/12/[address] [facility] [address] [place] [address] Ciara Garcia MD [address] [place] [address] Other chronic pain Social History Tobacco Use [...] Addendum Note - John Coronado RN - 09/12/2024 3:12 PM ESTAddended by: JOHN CORONADO on: 09/12/2024 03:12 PM Modules accepted: Orders * Telephone Encounter - John Coronado RN - 09/12/2024 3:11 PM EST TC to [facility], spoke with Jaky, confirmed they were unable to fill Oxycontin RX sent for 09/12/24. Requested they cancel RX. * Telephone Encounter - Adina Huggins - 09/12/2024 2:59 PM EST Pt walked in stating he went to [facility] to citrus picker Oxycodone 80mg but [facility] said they do not carry it andhe would like it to be resent to [facility] Pharmacy instead. documented in this encounter Plan of Treatment Upcoming Encounters Date Type Department Care Team (Late st Contact Info) Description 11/12/2024 2:00 PM EDT Clinical Support [facility] MEDICINE [address] [place] [address] 12/30/2024 9:45 AM EDT Office Visit [facility] [address] [place] [address] Ciara Garcia MD [address] [place] [address] documented as of this encounter Visit Diagnoses Diagnosis Other chronic pain documented in this encounter Additional Health Concerns Assessment Noted Time PHQ-9 Depression Total Score: 0 12/29/19 23 11:51 AM EDT documented as of this encounter Care Teams Green Energy Marketing Analyst Relationship Specialty Start Date End Date Ciara Garcia MD [address] [place] [address] PCP - General Family Medicine 06/04/19 documented as of this encounter
--- OUTSIDE RECORDS SUMMARY | 2024-10-04 14:56 | XMS_ITS | Encounter Summary ---
Author Organization [employer] Address [address] [facility] 7 [place] [address] Care Team Providers Care Wearing Apparel Folder Name Role Phone Ciara Garcia MD Primary Care Provide r Reason for Visit * Reason Onset Date Comments LUNG SCREENING 09/26/2024 Encounter Details Date Type Department Care Team ([facility] st Contact Info) Description 09/26/2024 Telephone [facility] [address] [place] [address] Ciara Garcia MD [address] [place] [address] LUNG SCREENING Social History Tobacco Use Types Packs/Day Years [...] encounter Miscellaneous Notes * Telephone Encounter - Milan Guardado MA - 09/26/2024 2:16 PM EDT TC- Lung screening referral fax and scanned in chart on 09/26/2024. documented in this encounter Plan of Treatment Upcoming Encounters Date Type Department Care Team (Late st Contact Info) Description 11/12/2024 2:00 PM EDT Clinical Support [facility] [address] [place] [address] 12/30/2024 9:45 AM EDT Office Visit [facility] [address] [place] [address] Ciara Garcia MD [address] [place] [address] documented as of this encounter Visit Diagnoses Not on filedocumented in this encounter Additional Health Concerns Assessment Noted Time PHQ-9 Depression Total Score: 0 09/27/19 25 9:51 AM EDT documented as of this encounter Care Teams Wearing Apparel Folder Relationship Specialty Start Date End Date Ciara Garcia MD [address] [place] [address] PCP - General Family Medicine 06/04/19 documented as of this encounter
--- OUTSIDE RECORDS SUMMARY | 2024-10-04 14:56 | XMS_ITS | Encounter Summary ---
Author Organization [employer] Address [address] [facility] 7t [place] [address] Care Team Providers Care Service Center Technician Name Role Phone Ciara Garcia MD Primary Care Provide r Encounter Details Date Type Department Care Team ([facility] st Contact Info) Description 09/09/2024 Orders Only [facility]INE [address] [place] [address] Ciara Garcia MD 230 [place] [address] Vitamin D deficiency (Primary Dx) Social History Tobacco Use Types [...] PM EDT Clinical Support [facility] [address] [place] [address] 12/30/2024 9:45 AM EDT Office Visit [facility] [address] [place] [address] Ciara Garcia MD [address] [place] [address] documented as of this encounter Visit Diagnoses Diagnosis Vitamin D deficiency- Primary documented in this encounter Additional Health Concerns Assessment Noted Time PHQ-9 Depression Total Score: 0 12/29/19 23 11:51 AM EDT documented as of this encounter Care Teams Service Center Technician Relationship Specialty Start Date End Date Ciara Garcia MD [address] [place] [address] PCP - General Family Medicine 06/04/19 documented as of this encounter
--- OUTSIDE RECORDS SUMMARY | 2024-10-04 14:56 | XMS_ITS | Encounter Summary ---
Author Organization [employer] Address [address] [facility] 7t [place] [address] Care Team Providers Care Math Teacher Name Role Phone Ciara Garcia MD Primary Care Provide r Encounter Details Date Type Department Care Team ([facility] st Contact Info) Description 09/13/2024 Telephone [facility] [address] [place] [address] Gabriela Castañeda, OD [address] [place] [address] Social History Tobacco Use Types Packs/Day Years [...] the past 12 months, has t he [employer] gas, oil or water company threatened to [...] Description 11/12/2024 2:00 PM EDT Clinical Support [address] [address] 12/30/2024 9:45 AM EDT Office Visit [address] [address] Ciara Garcia MD [address] [place] [address] documented as of this encounter Visit Diagnoses Not on filedocumented in this encounter Additional Health Concerns Assessment Noted Time PHQ-9 Depression Total Score: 0 12/29/19 23 11:51 AM EDT documented as of this encounter Care Teams Math Teacher Relationship Specialty Start Date End Date Ciara Garcia MD [address] [place] [address] PCP - General Family Medicine 06/04/19 documented as of this encounter
--- OUTSIDE RECORDS SUMMARY | 2024-10-04 14:57 | XMS_ITS | Encounter Summary ---
Author Organization [employer] Address [address] [facility] 7t [place] [address] Care Team Providers Care Reporting Lead Name Role Phone Ciara Garcia MD Primary Care Provide r Encounter Details Date Type Department Care Team ([facility] st Contact Info) Description 08/06/2024 Telephone [facility] [address] [place] [address] Ciara Garcia MD [address] [place] [address] Social History Tobacco Use Types Packs/Day Years [...] Description 11/12/2024 2:00 PM EDT Clinical Support [address] [address] 12/30/2024 9:45 AM EDT Office Visit [address] [address] Ciara Garcia MD [address] [place] [address] documented as of this encounter Visit Diagnoses Not on filedocumented in this encounter Additional Health Concerns Assessment Noted Time PHQ-9 Depression Total Score: 0 12/29/19 23 11:51 AM EDT documented as of this encounter Care Teams Reporting Lead Relationship Specialty Start Date End Date Ciara Garcia MD [address] [place] [address] PCP - General Family Medicine 06/04/19 documented as of this encounter
--- OUTSIDE RECORDS SUMMARY | 2024-10-04 14:57 | XMS_ITS | Continuity of Care Document ---
Author Organization [facility] ter Address [address] [place] [address]- Care Team Providers Care Die Attacher Name Role Phone Debbie SOLANO, Faiza Ozuna Primary Care Physician Encounter [facility] ACCT R [id number] Date(s): 06/27/24 - 10/03/24 [facility] [address] [place] [phone] Attending Physician: Carroll Lara MD Admitting Physician: Carroll Lara MD Referring Physician: Srinivas Rockwell MD Encounter [...] 5 Refills, Maintenance,06/26/24 4:35:00 PM EST, Tablet, [id number], Partial fill upon patient request if [...] PM EST, Aerosol, Route to Pharmacy Electronically, [id number], [id number], 175, cm, 06/26/24 1 3:52:00 EST, Height Start Date: 06/26/24 [...] Personnel Name: Debbie SOLANO, Faiza Ozuna Position: [facility] Outreach Member Role: PCP Address: [address] [place] [address] Telecom: Name: Margarita Montano RN Position: [facility] SN RN Member Role: Primary Care Nurse Care Team Related Persons Name: LUNA HARRY Insurance Providers Guarantor name: JOHNATHAN HARRY Health Plan Information #: 1 Payer: MEDICARE PART B OUTPT Member Number: [id number] Policy Number: NA Group Number: NA Health Plan Information #: 2 Payer: [facility] Member Number: [id number] Policy Number: NA Group Number: NA
--- OUTSIDE RECORDS SUMMARY | 2024-10-04 14:57 | XMS_ITS | Clinical Summary ---
Author Organization [facility] Address [address] [place] [address] Phone Care Team Providers Care Glass Finisher Name Role Phone Ciara Garcia MD [...] night Active cholecalciferol (VITAMIN D-3) 1.25 MG (61390 UT) tablet Take 50,000 Units by mouth [...] [place] Care Teams Glass Finisher Relationship Specialty Start Date End Date Ciara Garcia MD [address] [place] [phone] PCP - General Internal Medicine 02/03/21
--- OUTSIDE RECORDS SUMMARY | 2024-10-04 14:57 | XMS_ITS | Encounter Summary ---
Author Organization [employer] [facility] Address [address] [place] [address] 7t [place] [address] Care Team Providers Care General Car Yard Supervisor Name Role Phone Ciara Garcia MD Primary Care Provide r Encounter Details Date Type Department Care Team (Late Contact Info) Description 06/13/2022 Abstract [facility] MEDICINE [address] [place] [phone] Provider, MD Edwin Social History Tobacco Use Types Packs/Day Years [...] Description 11/12/2024 2:00 PM EDT Clinical Support [facility] [address] [place] [phone] 12/30/2024 9:45 AM EDT Office Visit [facility] [address] [place] [address] Ciara Garcia MD [address] [place] [address] documented as of this encounter Visit Diagnoses Not on filedocumented in this encounter Care Teams General Car Yard Supervisor Relationship Specialty Start Date End Date Ciara Garcia MD [address] [place] [address] PCP - General Family Medicine 06/04/19 documented as of this encounter
--- OUTSIDE RECORDS SUMMARY | 2024-10-04 14:57 | XMS_ITS | Encounter Summary ---
Author Organization [employer] Address [address] [facility] 7t [place] [address] Care Team Providers Care Mining And Quarrying Machinery Repairer Name Role Phone Ciara Garcia MD Primary Care Provide r Reason for Visit * Reason Comments Med Refill Encounter Details Date Type Department Care Team (Late st Contact Info) Description 06/29/2023 Refill [facility] [address] [place] [address] Jamel Duffy AGNP Chronic low back pain [...] Description 11/12/2024 2:00 PM EDT Clinical Support [facility] [address] [place] [address] 12/30/2024 9:45 AM EDT Office Visit [address] [address] Ciara Garcia MD [address] [place] [address] documented as of this encounter Visit Diagnoses Diagnosis Chronic low back pain with bilateral sciatica, unspecified back pain laterality documented in this encounter Additional Health Concerns Assessment Noted Time PHQ-9 Depression Total Score: 0 12/29/19 23 11:51 AM EDT documented as of this encounter Care Teams Mining And Quarrying Machinery Repairer Relationship Specialty Start Date End Date Ciara Garcia MD [address] [place] [address] PCP - General Family Medicine 06/04/19 documented as of this encounter
--- OUTSIDE RECORDS SUMMARY | 2024-10-04 14:57 | XMS_ITS | Encounter Summary ---
Author Organization [employer] [facility] Address [address] [place] [address] 7t [place] [address] Care Team Providers Care Plate Colorer Name Role Phone Ciara Garcia MD Primary Care Provide r Reason for Visit * Reason Onset Date Comments Nurse Triage 02/09/2023 Encounter Details Date Type Department Care Team ([facility] st Contact Info) Description 02/09/2023 Telephone [facility] [address] [place] [address] Ciara Garcia MD [address] [place] [address] Nurse Triage Social History Tobacco Use Types [...] Pt. Had surgery done on neck at [facility] a few months ago. I do see a report of CR Spine done but that was over 1 year ago on 11/29/21 where there was a metal probe in c3-c4 interspace. Pt. States he had surgery for that the next day at [facility]. I do see surgical notes in [employer] [...] Description 11/12/2024 2:00 PM EDT Clinical Support [address] [address] 12/30/2024 9:45 AM EDT Office Visit [address] [address] Ciara Garcia MD [address] [place] [address] documented as of this encounter Visit Diagnoses Not on filedocumented in this encounter Additional Health Concerns Assessment Noted Time PHQ-9 Depression Total Score: 0 12/29/19 23 11:51 AM EDT documented as of this encounter Care Teams Plate Colorer Relationship Specialty Start Date End Date Ciara Garcia MD [address] [place] [address] PCP - General Family Medicine 06/04/19 documented as of this encounter
--- OUTSIDE RECORDS SUMMARY | 2024-10-04 14:57 | XMS_ITS | Clinical Summary ---
Author Organization [employer] Address [address] [place] [address] 7[address] [place] [address] Care Team Providers Care Public Address System Mechanic Name Role Phone Ciara Garcia MD Primary Care Provide r Allergies Active Allergy Reactions Criticality Noted Date Comments Pollen Extract 02/10/2023 Other reaction(s): marijuana - causes sweating, nausea, dizziness patient states marijuana causes seizures Medications amLODIPine (Norvasc) 10 MG tablet Take 1 tablet by mouth at bed time. 01/27/20 21 Active fluticasone (Flovent) 220 MCG/ACT inhaler Inhale [...] SAME TIME. 42 patch 08/25/19 24 Active Aspirin Low Dose 81 MG EC tablet TAKE 1 TABLET BY MOUTH EVERY DAY 90 tablet 3 12/12/19 24 Active simvastatin (Zocor) 40 MG tablet TAKE 1 TABLET BY MOUTH EVERY DAY IN THE EVENING 90 tablet 3 01/31/20 24 Active loratadine (Claritin) 10 MG tabletIndicatio [...] WITH FOOD 90 tablet 06/20/20 24 Active cyanocobalamin (Vitamin B-12) 1000 MCG tabletIndicatio ns:B12 deficiency Take 1 tablet (1,000 mcg) by mouth Once per day. 90 tablet 1 08/30/19 25 Active nicotine polacrilex (Nicotine Mini) 4 MG lozengeIndicati ons:Continuous dependence on cigarette smoking Dissolve 1 lozenge (4 mg) in the mouth every 2 (two) hours if needed for smoking cessation. 100 lozenge 08/30/19 25 Active lisinopril 10 MG tabletIndicatio ns:Essential hypertension TAKE 1 TABLET BY MOUTH EVERY DAY IN THE MORNING 90 tablet 1 09/06/19 25 Active oxyCODONE ER (OxyCONTIN) 80 MG 12 hr tabletIndicatio ns:Other chronic pain Take 1 tablet (80 mg) by mouth every 8 (eight) hours for 28 days. 84 tablet 09/12/19 25 2024 Active baclofen (Lioresal) 10 MG tabletIndicatio ns:Cervicalgia TAKE 1 TABLET (10 MG) BY MOUTH EVERY 8 (EIGHT) HOURS IF NEEDED FOR MUSCLE SPASMS. 60 tablet 1 09/25/19 25 Active tamsulosin (Flomax) 0.4 MG 24 hr capsule TAKE 1 CAPSULE BY MOUTH EVERY DAY IN THE MORNING 90 capsule 09/25/19 25 Active cholecalciferol (Vitamin D-3) 25 MCG (1000 UT) tabletIndicatio ns:Vitamin D deficiency Take 1 tablet (25 mcg) by mouth Once per day. 60 tablet 1 09/27/19 25 Active semaglutide (Ozempic) 2 MG/1.5ML solution pen-injectorInd ications:Type 2 diabetes mellitus without complication, without long-term current use of insulin (CMS/HCC) Inject 0.25 mg under the skin 1 (one) time per week. 1 each 12 09/27/19 25 Active metFORMIN (Glucophage) 500 MG tabletIndicatio ns:Type 2 diabetes mellitus without complication, without long-term current use of insulin (CMS/HCC) Take 1 tablet (500 mg) by mouth with breakfast and with evening meal. 60 tablet 11 09/27/19 25 2025 Active Diclofenac Sodium 1 % gelIndications: Chronic low back pain with bilateral sciatica, unspecified back pain laterality APPLY 2 GRAMS TO AFFECTED AREA TWICE A DAY 100 g 3 10/05/19 25 Active ergocalciferol (Vitamin D-2) 1.25 MG (99539 UT) capsule take 1 capsule by oral route every week 11/13/19 22 2024 Discontinued(R eorder (will not trigger notification to Pharmacy)) Diclofenac Sodium 1 % gelIndications: Chronic low back pain with bilateral sciatica, unspecified back pain laterality APPLY 2 GRAMS TO AFFECTED AREA TWICE A DAY 100 g 3 10/05/19 24 2024 Discontinued(R eorder (will not trigger notification to Pharmacy)) lisinopril 10 MG tabletIndicatio ns:Essential hypertension TAKE 1 TABLET BY MOUTH EVERY DAY IN THE MORNING 90 tablet 1 01/31/20 24 2024 Discontinued tamsulosin (Flomax) 0.4 MG 24 hr capsule TAKE 1 CAPSULE BY MOUTH EVERY DAY IN THE MORNING 90 capsule 04/24/20 24 2024 Discontinued(R eorder (will not trigger notification to Pharmacy)) baclofen (Lioresal) 10 MG tabletIndicatio ns:Cervicalgia TAKE 1 TABLET (10 MG) BY MOUTH EVERY 8 (EIGHT) HOURS IF NEEDED FOR MUSCLE SPASMS. 60 tablet 1 06/25/20 24 2024 Discontinued oxyCODONE ER (OxyCONTIN) 80 MG 12 hr tabletIndicatio ns:Other chronic pain Take 1 tablet (80 mg) by mouth every 8 (eight) hours for 28 days. 84 tablet 08/15/19 25 2024 Discontinued(R eorder (will not trigger notification to Pharmacy)) ergocalciferol (Vitamin D-2) 1.25 MG (79706 UT) capsuleIndicati ons:Vitamin D deficiency Take 1 capsule (1.25 mg) by mouth 1 (one) time per week. 4 capsule 2 09/09/19 25 2024 Discontinued oxyCODONE ER (OxyCONTIN) 80 MG 12 hr tabletIndicatio ns:Other chronic pain Take 1 tablet (80 mg) by mouth every 8 (eight) hours for 28 days. Do not start before September 12, 2024. 84 tablet 09/12/19 25 2024 Discontinued(R eorder (will not trigger notification to Pharmacy)) Diclofenac Sodium 1 % gel Apply topically to neck pain three times daily 100 g 10/05/19 25 2024 Discontinued(O ther) Active Problems Problem Noted Date Diagnosed Date Screening for lung cancer 09/26/2024 Cervicalgia 01/30/2024 Assessment & Plan (01/30/2024 4:17 [...] Hypoventilation 02/10/2023 Diabetes 12/28/2022 Assessment & Plan (09/26/2024 12:13 PM EDT): Diabetes is: controlled - Lab [...] Follow up: 3 months Assessment & Plan (06/25/2024 4:58 PM EST): [...] injury 03/24/2021 Hypertension 11/01/2018 Assessment & Plan (09/26/2024 12:13 PM EDT): I advised: - Aerobic exercise to reduce [...] consulting health care provider Assessment & Plan (06/25/2024 4:56 PM EST): [...] Encounters Date Type Department Care Team Description 10/04/2024 11:15 AM EDT Office Visit [facility] [address] [place] [address] Chio Velazquez FNP Cervicalgia (Primary Dx); Type 2 diabetes mellitus without complication, without long-term current use of insulin (CMS/HCC); Chronic low back pain with bilateral sciatica, unspecified back pain laterality 10/04/2024 Telephone [facility] [address] [place] [address] Ciara Garcia MD Prior Authorization ([employer] [facility]: Ozempic) 10/02/2024 Telephone [facility] [address] [place] [address] Ciara Garcia MD Nurse Triage 09/27/2024 Population Health Risk Score [facility] (C[facility]) Department [address] [place] [phone] Provider, Population Health Generic 09/26/2024 10:00 AM EDT Office Visit [facility] [address] [place] [address] Ciara Garcia MD Primary hypertension (Primary Dx); Type 2 diabetes mellitus without complication, without long-term current use of insulin (CMS/HCC); Vitamin D deficiency; Screening for lung cancer 09/26/2024 Telephone [facility] [address] [place] [address] Ciara Garcia MD LUNG SCREENING 09/26/2024 Travel 09/24/2024 Refill [facility] [address] [place] [address] Ciara Garcia MD 09/23/2024 Refill [facility] [address] [place] [address] Ciara Garcia MD Cervicalgia 09/19/2024 Patient Outreach [facility] [address] [place] [address] Ciara Garcia MD Pre-visit Planning (SDOH screening negative and tobacco screening negative) 09/13/2024 Telephone [facility] OPTOMETRY [address] [place] [address] Taramrcy Gabriela, OD 09/12/2024 Refill [facility] [address] [place] [address] Ciara Garcia MD Other chronic pain 09/10/2024 Refill [facility] [address] [place] [phone] Ciara Garcia MD Other chronic pain 09/09/2024 Telephone [facility] [address] [place] [phone] Ciara Garcia MD Results 09/09/2024 Orders Only [facility] [address] [place] [phone] Ciara Garcia MD Vitamin D deficiency (Primary Dx) 09/06/2024 Refill [facility] [address] [place] [phone] Ciara Garcia MD Essential hypertension 08/30/2024 2:15 PM EST Office Visit [facility] [address] [place] [phone] Audrey Roblero ANP Acute pain of left wrist (Primary Dx); [facility] (current) use of opiate analgesic; Left hand weakness; Weakness of both hands; B12 deficiency; Continuous dependence on cigarette smoking; Left wrist tendonitis 08/30/2024 Travel 08/30/2024 Telephone [facility] [address] [place] [phone] Ciara Garcia MD Nurse Triage 08/21/2024 2:20 PM EST Office Visit [facility] [address] [place] [phone] Name, MD Alfred Acute pain of left wrist (Primary Dx); Right elbow pain; Acute pain of right knee 08/15/2024 10:00 AM EST Clinical Support [facility] [address] [place] [phone] Jasmina Coronado RN Chronic low back pain with bilateral sciatica, unspecified back pain laterality (Primary Dx) 08/15/[address] [address] Jasmina Coronado RN BPI Scoring 08/15/2024 Travel 08/12/[address] [address] Ciara Garcia MD Other chronic pain 08/06/[address] [phone] Ciara Garcia MD 08/01/[address] [address] Ciara Garcia MD Other chronic pain from [...] uit: Not Asked; Counseling Given: Not Answered Alcohol Use Standard Drinks/Week Comments Never 0 [...] Mass Index 35.5 10/04/2024 11:39 AM EDT Plan of Treatment Upcoming Encounters Date Type Department Care Team (Late st Contact Info) Description 11/12/2024 2:00 PM EDT Clinical Support [facility] [address] [place] [phone] 12/30/2024 9:45 AM EDT Office Visit [facility] [address] [place] [phone] Ciara Garcia MD [address] [place] [phone] Health Maintenance Due Date Last Done Comments CT Colonography 1958 Colonoscopy 1958 Colorectal Cancer Screening 1960 FIT DNA/Cologuard 1958 FIT 1958 FOBT 1960 Sigmoidoscopy 1958 Diabetes: Foot Exam 1968 Hepatitis A Vaccines (1 of 2 - Risk 2-dose series) 1977 Lung Cancer Screening 2008 Diabetes: Urine Protein Screening 06/05/2024 06/05/2023 Lipid Panel 06/05/2024 06/05/2023, 10/07/2020 Diabetes: Hemoglobin A1C 03/04/2025 025, 06/21/2024, 10/25/2023, Additional history exists Eye Exam 06/12/2025 06/12/2023, 05/18, 06/12/2023, Additional history exists Alcohol/Substance Use Screening 08/30/2025 08/30/2024 SDOH Screening 09/19/2025 09/19/2024 Depression Screening 09/26/2025 09/26/2024, 09/27/19 Tobacco Screening 10/04/2025 10/04/2024 DTaP/Tdap/Td Vaccines (3 - Td or Tdap) [...] complication, without long-term current use of insulin ([facility]) POCT GLUCOSE Routine 09/26/2024 9:52 AM EDT Type 2 diabetes mellitus without complication, without long-term current use of insulin ([facility]) METHYLMALONIC ACID Routine 09/04/2024 1: 18 PM EST HOMOCYSTEINE Routine 09/04/2024 1:18 PM EST VITAMIN B12/FOLATE, SERUM PANEL Routine 09/04/2024 1:18 PM EST VITAMIN D,25-OH,TOTAL,IA Routine 09/04/2024 1:18 PM EST BASIC METABOLIC PANEL Routine 09/04/2024 1:18 PM EST HEMOGLOBIN A1C Routine 09/04/2024 1:18 PM EST CANCELLED CHEMISTRY Routine 08/30/2024 3 :27 PM EST XR KNEE 4+ VIEWS RIGHT Routine 3:08 PM EST Acute pain of right knee XR ELBOW 1-2 VIEWS RIGHT Routine 08/21/2024 3:08 PM EST Right elbow pain XR WRIST 3+ VIEWS LEFT Routine 3:08 PM EST Acute pain of left [...] Relevant to Health Maintenance Results * XR CERVICAL SPINE 4V (10/04/2024 12:30 PM EDT) Anatomical Region Laterality Modality Abdomen Radiographic Lilibeth ging 10/04/2024 12:3 0 PM EDT Narrative 10/04/2024 2:42 PM EDT ?[facility] ?[address] ?[place] [address] ?XRay Report ? Signed ? Patient: Shelly,Efraín S Jr ?MR#: [id number] ?? [id number] ? : 1960 ?Acct:[id number] ? Age/Sex: 63 / M ?ADM Date: 10/04/24 ? Loc: HO.HHCX ? Attending Dr: Chio NEGRO ? Ordering Physician: Chio Velazquez ?? Date of Service: 10/04/24 ?? Procedure(s): XR cervical spine 4V ?? Accession Number(s): [id number] ? cc: Chio Velazquez ? EXAMINATION: ?? XR CERVICAL SPINE ? [...] DD/ 1230 ? TD/TT: 10/04/24 1300 ? Pcb Design Engineer: ? Procedure Note Vinny, Image - 10/04/2024 [facility] [address] [place] [address] XRay Report Signed Patient: Efraín Bravo [facility]#: [id number] : 9Acct:[id number] Age/Sex: 63 / MADM Date: 10/04/24 [facility]: Chio NEGRO Ordering Physician: Chio Velazquez Date of Service: 10/04/24 Procedure(s): XR cervical spine 4V Accession Number(s): [id number] cc: Chio Velazquez EXAMINATION: XR CERVICAL SPINE [...] 10/04/24 1438 DD/ 1230 TD/TT: 10/04/24 1300 Pcb Design Engineer: Chio NEGRO IMG XR PROCEDURES Final Result * POCT Glucose (10/04/2024 12:11 PM EDT) Only the most recent of2 resultswithin the time period is included. Glucose Blood, POC 124 60 - 200 mg/dL QC Media Lot # [id number] Lot# Expiration Date 82,625 Blood Capillary blood specimen / Unknown 10/04/2024 12:11 PM EDT us Chioayden Velazquez DATA ANALYST REPORT WRITER POINT OF CARE TEST ENTER/EDIT ORDERABLES Final Result * (ABNORMAL) Vitamin D, 25-Hydroxy, Total, Immunoassay (09/04/2024 1:18 PM EST) Vitamin D 25-OH Total 15.8(L) >30 ng/mL [facility] Comment:Health Based Referen ce Values*< 20 ng/mL Ytmvriysg46-33 ng/mL Insufficient> 30 ng/mL Sufficient*Leena AHMADI. N Engl J Med. 2007;357:266-280Care must be taken in interpreting Vitamin D results fromdifferent laboratories and methodologies. Published datademonstrated that results from patients undergoinghemodialysis may show a negative bias when tested withvarious automated 25-OH vitamin D assays when compared toLC-MS/MS.When testing samples from patients whose predominant form ofVitamin D is Vitamin D2, such as patients receiving VitaminD2 supplementation, results that are subtherapeutic shouldbe confirmed with another method such as LC-MS/MS. 09/04/2024 1:18 PM EST 09/04/2024 1:18 PM EST us Ciara Celaya MD LAB BLOOD ORDERABLES Final Result [facility] [address] [place] [phone] * Vitamin B12 (Cobalamin) and Folate Panel, Serum (09/04/2024 1:18 PM EST) Vitamin B12 594 200 - 900 pg/mL [facility] Comment:NORMAL 200-900 PG/ML INDETERMINATE 160-199 PG/ML DEFICIENT < 160 PG/ML Folate 5.3 > or = 4.0 ng/mL [facility] Comment:Reference Values:> o r = 4.0 ng/mL< 4.0 ng/mL suggests folate deficiency Methotrexate, aminopterin and folinic acid(leucovorin) are chemotherapeutic agents whose molecularstructures are similar to folate; therefore, the Architectfolate assay cannot be used for patients using these drugs. 09/04/2024 1:18 PM EST 09/04/2024 1:18 PM EST Ciara Celaya MD LAB BLOOD ORDERABLES Final Result [facility] [address] [place] [phone] * Methylmalonic Acid (09/04/2024 1:18 PM EST) Methylmalonic Acid 179 69 - 390 nmol/L [facility] Comment: Serum methylmalonic acid (MMA) levels are used todiagnose and monitor several rare inborn errors ofmetabolism, including methylmalonic aciduria. Theenzymatic conversion of MMA to succinic acid requiresvitamin B12 (adenosyl-cobalamin) as a cofactor. SerumMMA levels are also used for assessing functionalvitamin B12 deficiency. Vitamin B12 is essential forfetal neurodevelopment, particularly early inpregnancy. Undiagnosed maternal vitamin B12 deficiencymay be associated with adverse / outcomes,such as neural tube defects and intrauterine growthrestriction.[employer] utilized Multi-Modal Decomposition(MMD) analysis to establish first and second trimester-specific MMA reference intervals in , as givenbelow:MMA, First trimester (<13 wks gestation): 58-167 nmol/LMMA, Second trimester (13-23 wks gestation):63-241 nmol/LThis test was developed and its analytical performancecharacteristics have been determined by [employer]. It has not been cleared or approved by theFDA. This assay has been validated pursuant to the CLIAregulations and is used for clinical purposes.THIS TEST WAS PERFORMED AT:[employer] [place], [place] ??[phone] FAULKNER MD,PHD 09/04/2024 1:18 PM EST 09/04/2024 1:18 PM EST Ciara Celaya MD LAB BLOOD ORDERABLES Final Result Performing Organization Address [facility]/ZIP Co de Phone Number [facility] [address] [place] [phone] * (ABNORMAL) Homocysteine (09/04/2024 1:18 PM EST) Homocysteine 12.0(A) <11.4 umol/L [facility] Comment:Homocysteine is incr eased by functional deficiency offolate or vitamin B12. Testing for methylmalonic aciddifferentiates between these deficiencies. Other causesof increased homocysteine include renal failure, folateantagonists such as methotrexate and phenytoin, andexposure to nitrous oxide.Darío Mims, et al., [employer] Director Med. 1999;131(5):331-9.THIS TEST WAS PERFORMED AT:[facility] [place] [phone] BLACKWELL MD 09/04/2024 1:18 PM EST 09/04/2024 1:18 PM EST Ciara Celaya MD LAB BLOOD ORDERABLES Final Result Performing Organization Address [facility] Co de Phone Number [facility] [address] [place] [phone] * (ABNORMAL) Hemoglobin A1c (09/04/2024 1:18 PM EST) Hemoglobin A1c 6.7(H) <6.0 % [facility] Comment:Hemoglobin A1C Refer ence Range Adults: 4.8 - 6.0 % Non diabetic: < 6.0 % Goal: < 7.0 %Additional Action Suggested: > 8.0 %Note: Hemoglobin A1c results are invalid for patients with abnormal amounts of HbF. Blood transfusions may impact the HbA1c concentration in the patient sample. Estimated Average Glucose 146 mg/dL [facility] Comment:eAG = Estimated ave rage glucose which is %A1C expressed asaverage glucose, using the formula of the X4I-FnkntcbXrrowft Glucose study (ADAG), Diabetes Care, Vol.31,#8,2007 09/04/2024 1:18 PM EST 09/04/2024 1:18 PM EST us Ciara Celaya MD LAB BLOOD ORDERABLES Final Result Performing Organization Address [facility] Co de Phone Number [facility] [address] [place] [phone] * (ABNORMAL) Basic Metabolic Panel (09/04/2024 1:18 PM EST) Sodium 145 135 - 145 mmol/L [facility] Potassium 4.0 3.3 - 5.1 mmol/L [facility] Chloride 110(H) 96 - 108 mmol/L [facility] Carbon Dioxide 27 22 - 29 mmol/L [facility] Anion Gap 12 12 - 20 [facility] Urea Nitrogen (BUN) 15 9 - 16 mg/dL [facility] Creatinine, Serum 1.09 0.5 - 1.4 mg/dL [facility] Estimated Glomerular Filt Rate >60 [facility] Comment:Chronic Kidney Disea se: Estimated GFR < 60 mL/min/1.95z2Dtgolw Kidney Disease: Estimated GFR < 15 mL/min/1.73m2 Glucose 120(H) 60 - 115 mg/dL [facility] Calcium 9.1 8.4 - 10.2 mg/dL [facility] 09/04/2024 1:18 PM EST 09/04/2024 1:18 PM EST us Ciara Celaya MD LAB BLOOD ORDERABLES Final Result Performing Organization Address [facility] Co de Phone Number [facility] [address] [place] [phone] * Cancelled Chemistry (08/30/2024 3:27 PM EST) Cancelled Chemistry SEE NOTE [facility] Comment:THE FOLLOWING TESTS WERE CANCELLED: BMP, LIPID,VITAMIN D,HGB A1C, B12FOL, HOMOCYSTEINE,METHYLMALONIC AREASON: NO SPECIMEN RECEIVED 08/30/2024 3:27 PM EST 08/30/2024 10:01 PM EST us Ciara Celaya MD HISTORICAL/NON ORDERA BLE LABS Final Result [facility] [address] [place] [phone] * XR Knee 4+ Views Right (08/21/2024 3:08 PM EST) Anatomical Region Laterality Modality Lower Extremities, Knee Right Radiogra phic Imaging 08/21/2024 3:08 PM EST Narrative 08/21/2024 4:28 PM EST ?[facility] ?[address] ?[place] [address] ?XRay Report ? Signed ? Patient: Shelly,Efraín S Jr ?MR#: [id number] ?? [id number] ? : 1960 ?Acct:[id number] ? Age/Sex: 63 / M ?ADM Date: 08/21/24 ? Loc: HO.HHCX ? Attending Dr: Alfred Murphy MD ? Ordering Physician: Alfred Murphy MD ?? Date of Service: 08/21/24 ?? Procedure(s): XR knee RT 4V ?? Accession Number(s): [id number] ? cc: Alfred Murphy MD ? EXAMINATION: [...] EST RP ? Dictated By: ?Luz Maria,Kelton Pabon MD ? Signed By: ?<Electronically signed by Kelton Loera MD in OV> ?08/21/24 1625 ? DD/ 1508 ? TD/TT: 08/21/24 1600 ? Pcb Design Engineer: SHERINE ? Procedure Note Donotkimberlyinterpreter, Image - 08/21/[address] [address] XRay Report Signed Patient: Efraín Bravo [facility]#: [id number] : 9Acct:[id number] Age/Sex: 63 / MADM Date: 08/21/24 Loc: HO.HHCX Attending Dr: Alfred Murphy MD Ordering Physician: Alfred Murphy MD Date of Service: 08/21/24 Procedure(s): XR knee RT 4V Accession Number(s): [id number] cc: Alfred Murphy MD EXAMINATION: XR KNEE, [...] 08/21/24 1625 DD/ 1508 TD/TT: 08/21/24 1600 Pcb Design Engineer: SHERINE Alfred Murphy MD IM XR PROCEDURES Edited Result - Final * XR Wrist 3+ Views Left (08/21/2024 3:08 PM EST) Anatomical Region Laterality Modality Upper Extremities, Wrist Left Radiogr aphic Imaging 08/21/2024 3:08 PM EST Narrative 08/21/2024 4:28 PM EST ?[facility] ?[address] ?[place], [place] [address] ?XRay Report ? Signed ? Patient: Shelly,Efraín S Jr ?MR#: [id number] ?? [id number] ? : 1960 ?Acct:[id number] ? Age/Sex: 63 / M ?ADM Date: 08/21/24 ? Loc: HO.HHCX ? Attending Dr: Alfred Murphy MD ? Ordering Physician: Alfred Murphy MD ?? Date of Service: 08/21/24 ?? Procedure(s): XR wrist LT min 3V ?? Accession Number(s): [id number] ? cc: Alfred Murphy MD ? EXAMINATION: [...] Araya MD ??08/21/2024 04:25 PM EST RP ?? Workstation: [id number] ? Dictated By: ?Skip Araya MD ? Signed By: ?<Electronically signed by Skip Araya MD in OV> ?08/21/24 1625 ? DD/ 1508 ? TD/TT: 08/21/24 1600 ? Pcb Design Engineer: ? Procedure Note Mary Casillas - 08/21/2024 [facility] [address] [place] [address] XRay Report Signed Patient: Efraín Bravo MR#: [id number] : 9Acct:[id number] Age/Sex: 63 / MADM Date: 08/21/24 Loc: HO.HHCX Attending Dr: Alfred Murphy MD Ordering Physician: Alfred Murphy MD Date of Service: 08/21/24 Procedure(s): XR wrist LT min 3V Accession Number(s): [id number] cc: Alfred Murphy MD EXAMINATION: XR WRIST, [...] 08/21/24 1625 DD/ 1508 TD/TT: 08/21/24 1600 Pcb Design Engineer: Alfred Murphy MD IMG XR PROCEDURES Edited Result - Final * XR Elbow 1-2 Views Right (08/21/2024 3:08 PM EST) Anatomical Region Laterality Modality Upper Extremities, Elbow Right Radiogr aphic Imaging 08/21/2024 3:08 PM EST Narrative 08/21/2024 4:26 PM EST ?[facility] ?[address] ?[place] [address] ?XRay Report ? Signed ? Patient: Shelly,Efraín S Jr ?MR#: [id number] ?? [id number] ? : 1960 ?Acct:[id number] ? Age/Sex: 63 / M ?ADM Date: 02/05/25 ? Loc: HO.HHCX ? Attending Dr: Alfred Murphy MD ? Ordering Physician: Alfred Murphy MD ?? Date of Service: 08/21/24 ?? Procedure(s): XR elbow RT 2V ?? Accession Number(s): [id number] ? cc: Katherine,Alfred SOLANO ? EXAMINATION: ?? XR ELBOW, RIGHT ? [...] DD/ 1508 ? TD/TT: 08/21/24 1600 ? Pcb Design Engineer: ? Procedure Note Mary Casillas - 08/21/2024 [place] [address] XRay Report Signed Patient: Efraín Bravo [facility]#: [id number] : 9Acct:[id number] Age/Sex: 63 / MADM Date: 08/21/24 Loc: HO.HHCX Attending Dr: Alfred Murphy MD Ordering Physician: Alfred Murphy MD Date of Service: 08/21/24 Procedure(s): XR elbow RT 2V Accession Number(s): [id number] cc: Alfred Murphy MD EXAMINATION: XR ELBOW, [...] 08/21/24 1623 DD/ 1508 TD/TT: 08/21/24 1600 Pcb Design Engineer: us Alfred Murphy MD IMG XR PROCEDURES Edited Result - Final * POCT HERBER-14 Urine Drug Screen (08/15/2024 10:04 AM EST) Oxycodone Screen, Urine Positive Urine Urine specimen obtained by clean catch procedure / Unknown 08/15/2024 10:04 AM EST Jasmina Santos RN - 08/15/2024 10:04 AM EST UTOX cup Lot#[id number] Exp. 04/10/26 Internal Pass Control us Ciara Celaya MD POINT OF CARE TEST EN TER/EDIT ORDERABLES Final Result * Hepatitis Panel, General (12/19/2023 9:17 AM EDT) Hepatitis A IgM Nonreactive Nonreactive [facility] Comment:IgM antibodies to [place] V not detected; does not exclude earlyacute or recovered HAV infection. ~Hepatitis B Surface Antibody REACTIVE Nonreactive [facility] Comment:REACTIVE: > 11.99 mI U/mL Hepatitis B Core Antibody Nonreactive Nonreactive [facility] Hepatitis C Antibody Nonreactive Nonreactive [facility] Comment:Antibodies to HCV no t detected; does not exclude early acuteHCV infection. Hepatitis B Surface Ag Negative Negative [facility] 12/19/2023 9:17 AM EDT 12/19/2023 9:17 AM EDT us Generic External Data Provider LAB BLOOD ORDERAB LES Final Result Performing Organization Address [facility] Co de Phone Number [facility] [address] [place] [phone] * (ABNORMAL) Albumin, Random Urine W/Creatinine (06/05/2023 2:50 PM EST) Creatinine, Urine 301.05 mg/dL [facility] Microalbumin Urine 248.0 mg/L H [facility] Microalbum Creatinine Ratio Ur 82.3(H) <30 ug/mg cr [facility] Comment:Albumin/Creatinine R atio Reference Ranges: Normal: < 30 ug/mg creatinine Microalbuminuria: 30 - 300 ug/mg creatinineClinical Albuminuria: > 300 ug/mg creatinine 06/05/2023 2:50 PM EST 06/05/2023 4:05 PM EST us Ciara Celaya MD LAB URINE ORDERABLES Final Result Performing Organization Address [facility] Co de Phone Number [facility] [address] [place] [phone] * Lipid Panel, Standard (06/05/2023 2:50 PM EST) Triglycerides 116 <150 mg/dL [facility] Comment:Desirable Triglyceri de: less than 150 mg/dLBorderline High Triglyceride 150-199 mg/dLHigh Triglyceride: 200-499 mg/dLVery High Triglyceride: greater than or equal to 5OO mg/dL Cholesterol 183 <200 mg/dL [facility] Comment:Desirable Cholestero l: less than 200 mg/dLBorderline High Cholesterol: 200-239 mg/dLHigh Cholesterol: greater than 239 mg/dL LDL Cholesterol Calculated 95 <100 mg/dL [facility] Comment:Desirable LDL: less than 100 mg/dLNear Optimal/Above Optimal LDL: 110- 129 mg/dLBorderline High LDL: 130-159 mg/dLHigh LDL: 160-189 mg/dLVery High LDL: greater than or equal to 190 mg/dL HDL Cholesterol 65 >40 mg/dL [facility] Comment:Desirable HDL: great er than 40 mg/dL Note: This HDL assay may give artificially low results in patients with liver disease. Blood Venous blood specimen / Unknown 06/05/2023 2:50 PM EST 06/05/2023 4:05 PM EST us Ciara Celaya MD LAB BLOOD ORDERABLES Final Result [facility] [address] [place] [phone] from Last 3 Months or Most Recently Relevant to Health Maintenance Insurance MEDICARE [facility] Care Teams Public Address System Mechanic Relationship Specialty Start Date End Date Ciara Garcia MD [address] [place] [phone] PCP - General Family Medicine 06/04/19
--- OUTSIDE RECORDS SUMMARY | 2024-10-04 14:57 | XMS_ITS | Encounter Summary ---
Author Organization [employer] Address [address] [place] [address] 7 [place] [address] Care Team Providers Care Hood Maker Name Role Phone Ciara Garcia MD Primary Care Provide r Reason for Visit * Reason Onset Date Comments Med Refill 03/16/2023 Encounter Details Date Type Department Care Team ([facility] st Contact Info) Description 03/16/2023 Telephone [facility] [address] [place] [address] Ciara Garcia MD [address] [place] [address] Med Refill Social History Tobacco Use Types [...] MG 12 hr tablet Please sent to [facility]/pharmacy #[id number] - [place] - [address] [facility] documented in this encounter Plan of Treatment Upcoming Encounters Date Type Department Care Team (Late st Contact Info) Description 11/12/2024 2:00 PM EDT Clinical Support [address] [address] 12/30/2024 9:45 AM EDT Office Visit [address] [address] Ciara Garcia MD [address] [place] [phone] documented as of this encounter Visit Diagnoses Not on filedocumented in this encounter Additional Health Concerns Assessment Noted Time PHQ-9 Depression Total Score: 0 12/29/19 23 11:51 AM EDT documented as of this encounter Care Teams Hood Maker Relationship Specialty Start Date End Date Ciara Garcia MD [address] [place] [phone] PCP - General Family Medicine 06/04/19 documented as of this encounter
--- OUTSIDE RECORDS SUMMARY | 2024-10-04 14:57 | XMS_ITS | Encounter Summary ---
Author Organization [facility] Address [address] [place] [address] 7 [place] [address] Care Team Providers Care Rn Medicare Name Role Phone Ciara Garcia MD Primary Care Provide r Reason for Visit * Reason Onset Date Comments Med Refill 02/16/2023 Encounter Details Date Type Department Care Team ([facility] st Contact Info) Description 02/16/2023 Telephone [facility] MED[facility]INE [address] [place] [address] Ciara Garcia MD [address] [place] [address] Med Refill Social History Tobacco Use Types [...] 11/12/2024 2:00 PM EDT Clinical Support [address] [address] 12/30/2024 9:45 AM EDT Office Visit [address] [address] Ciara Garcia MD [address] [place] [phone] documented as of this encounter Visit Diagnoses Not on filedocumented in this encounter Additional Health Concerns Assessment Noted Time PHQ-9 Depression Total Score: 0 12/29/19 23 11:51 AM EDT documented as of this encounter Care Teams Rn Medicare Relationship Specialty Start Date End Date Ciara Garcia MD [address] [place] [phone] PCP - General Family Medicine 06/04/19 documented as of this encounter
--- OUTSIDE RECORDS SUMMARY | 2024-10-04 14:57 | XMS_ITS | Encounter Summary ---
Author Organization [employer] Address [address] [facility] 7 [place] [address] Care Team Providers Care Herbicide Service Sales Representative Name Role Phone Ciara Garcia MD Primary Care Provide r Reason for Visit * Reason Comments Med Refill Encounter Details Date Type Department Care Team ([facility] st Contact Info) Description 09/21/2023 Refill [facility] MED[facility]INE [address] [place], [place] [phone] Ciara Garcia MD [address] [place], [place] [phone] Other chronic pain Social History Tobacco Use [...] Description 11/12/2024 2:00 PM EDT Clinical Support [facility] [address] [place] [address] 12/30/2024 9:45 AM EDT Office Visit [facility] [address] [place] [address] Ciara Garcia MD [address] [place] [address] documented as of this encounter Visit Diagnoses Diagnosis Other chronic pain documented in this encounter Additional Health Concerns Assessment Noted Time PHQ-9 Depression Total Score: 0 12/29/19 23 11:51 AM EDT documented as of this encounter Care Teams Herbicide Service Sales Representative Relationship Specialty Start Date End Date Ciara Garcia MD [address] [place] [phone] PCP - General Family Medicine 06/04/19 documented as of this encounter
--- OUTSIDE RECORDS SUMMARY | 2024-10-04 14:57 | XMS_ITS | Encounter Summary ---
Author Organization [employer] Address [address] [facility] 7 [place] [address] Care Team Providers Care Liquor Tester Name Role Phone Ciara Garcia MD Primary Care Provide r Reason for Visit * Reason Comments Med Refill Encounter Details Date Type Department Care Team ([facility] st Contact Info) Description 06/29/2023 Refill [facility] MED[facility]INE [address] [place] [address] Ciara Garcia MD [address] [place] [address] Tobacco dependence syndrome; Essential hypertension Social History [...] Description 11/12/2024 2:00 PM EDT Clinical Support [facility] [address] [place] [phone] 12/30/2024 9:45 AM EDT Office Visit [facility] [address] [place] [address] Ciara Garcia MD [address] [place] [address] documented as of this encounter Visit Diagnoses Diagnosis Tobacco dependence syndrome Tobacco use disorder Essential hypertension Unspecified essential hypertension documented in this encounter Additional Health Concerns Assessment Noted Time PHQ-9 Depression Total Score: 0 12/29/19 23 11:51 AM EDT documented as of this encounter Care Teams Liquor Tester Relationship Specialty Start Date End Date Ciara Garcia MD [address] [place] [phone] PCP - General Family Medicine 06/04/19 documented as of this encounter
--- OUTSIDE RECORDS SUMMARY | 2024-10-04 14:57 | XMS_ITS | Encounter Summary ---
Author Organization [employer] [facility] Address [address] [place] [address] 7 [place] [address] Care Team Providers Care Clothes Designer Name Role Phone Ciara Garcia MD Primary Care Provide r Reason for Visit * Reason Comments Med Refill Encounter Details Date Type Department Care Team (Late st Contact Info) Description 08/12/2022 Refill [facility] MED[facility]INE [address] [place] [phone] Jeannette Marquez MD [address] [place] [address] Chronic low back pain with bilateral sciatica, [...] 2:00 PM EDT Clinical Support [facility] [address] [place] [phone] 12/30/2024 9:45 AM EDT Office Visit [facility] MED[facility] [address] [place] [address] Ciara Garcia MD [address] [place] [address] [phone] documented as of this encounter Visit Diagnoses Diagnosis Chronic low back pain with bilateral sciatica, unspecified back pain laterality- Primary documented in this encounter Care Teams Clothes Designer Relationship Specialty Start Date End Date Ciara Garcia MD [address] [place] [address] PCP - General Family Medicine 06/04/19 documented as of this encounter
--- OUTSIDE RECORDS SUMMARY | 2024-10-04 14:57 | XMS_ITS | Encounter Summary ---
Author Organization [employer] [facility] Address [address] [facility] 7t [place] [address] Care Team Providers Care Commercial Loan Coordinator Name Role Phone Ciara Garcia MD Primary Care Provide r Reason for Visit * Reason Comments Med Refill Encounter Details Date Type Department Care Team ([facility] st Contact Info) Description 06/29/2023 Refill [facility] MED[facility] [address] [place] [address] Vianney Odom, MARKY [address] [place] [address] Chronic low back pain with bilateral sciatica, [...] [facility] [address] [place] [address] 12/30/2024 9:45 AM EDT Office Visit [address] [address] Ciara Garcia MD [address] [place] [phone] documented as of this encounter Visit Diagnoses Diagnosis Chronic low back pain with bilateral sciatica, unspecified back pain laterality documented in this encounter Additional Health Concerns Assessment Noted Time PHQ-9 Depression Total Score: 0 12/29/19 23 11:51 AM EDT documented as of this encounter Care Teams Commercial Loan Coordinator Relationship Specialty Start Date End Date Ciara Garcia MD [address] [place] [phone] PCP - General Family Medicine 06/04/19 documented as of this encounter
--- OUTSIDE RECORDS SUMMARY | 2024-10-04 14:57 | XMS_ITS | Encounter Summary ---
Author Organization [facility] Address [address] [place] [address] 7t [place] [address] Care Team Providers Care Director Global Development Name Role Phone Ciara Garcia MD Primary Care Provide r Encounter Details Date Type Department Care Team (Late Contact Info) Description 04/17/2023 Telephone [facility] MEDICINE [address] [place] [address] Ciara Garcia MD [address] [place] [phone] Social History Tobacco Use Types Packs/Day Years [...] Description 11/12/2024 2:00 PM EDT Clinical Support [facility] [address] [place] [address] 12/30/2024 9:45 AM EDT Office Visit [facility] [address] [place] [address] Ciara Garcia MD [address] [place] [address] documented as of this encounter Visit Diagnoses Not on filedocumented in this encounter Additional Health Concerns Assessment Noted Time PHQ-9 Depression Total Score: 0 12/29/19 23 11:51 AM EDT documented as of this encounter Care Teams Director Global Development Relationship Specialty Start Date End Date Ciara Garcia MD [address] [place] [address] PCP - General Family Medicine 06/04/19 documented as of this encounter
== END 2024-10-04 12:29 | disposition home or self-care (01) ==
LOC: HO.HHCX 12:28
PROVIDERS: Visit Provider Nurse Practitioner Family
DX: M54.2 Cervicalgia (principal)
CPT/HCPCS: 72050

== ENCOUNTER → 2024-10-04 12:30 | Outpatient (BNV) | payer MEDICARE, MEDICAID, SELFPAY | PROVIDERS: Visit Provider Radiology Diagnostic Radiology | DX: M47.22 Other spondylosis with radiculopathy, cervical region (principal) | CPT/HCPCS: 72050 ==

== ENCOUNTER 2024-10-31 14:57 | Outpatient (REF) | payer MEDICARE, MEDICAID, SELFPAY ==
[2024-10-31 17:18] LABS: Prostate Specific Antigen 0.52 ng/mL (<0.05-4.0)
[2024-10-31 17:43] LABS: Alanine Aminotransferase 27 U/L (0-40); Albumin Level 4.2 g/dL (3.5-5.0); Anion Gap 13 (12-20); Aspartate Amino Transferase 30 U/L (5-37); Bilirubin Direct 0.2 mg/dL (0.0-0.5); Bilirubin Total 0.5 mg/dL (0.0-1.0); Blood Urea Nitrogen 19 mg/dL (9-16); Calcium 9.2 mg/dL (8.4-10.2); Carbon Dioxide 28 mmol/L (22-29); Chloride 104 mmol/L (96-108); Estimated Glomerular Filt Rate > 60; Potassium 4.3 mmol/L (3.3-5.1); Sodium 141 mmol/L (135-145); Total Protein 6.7 g/dL (6.5-8.0)
[2024-10-31 17:44] LABS: Alkaline Phosphatase 107 U/L (39-117); Glucose Random 95 mg/dL (60-115)
--- OUTSIDE RECORDS SUMMARY | 2024-10-31 17:49 | XMS_ITS | Clinical Summary ---
Author Organization [facility] Address [address] [place] [address] Phone Care Team Providers Care Boat Outfitting Supervisor Name Role Phone Ciara Garcia MD [...] night Active cholecalciferol (VITAMIN D-3) 1.25 MG (85308 UT) tablet Take 50,000 Units by mouth [...] Due Date Last Done Comments Pneumococcal Vaccine: 50+ Ye ars (1 of 2 - PCV) 1977 Colorectal Cancer Screening: Annual FOBT 11/07/2007 Colorectal Cancer Screening: Colonoscopy 11/07/2007 Colorectal Cancer Screening: Sigmoidoscopy 11/07/2007 Influenza Vaccine (Season Ended) 2025 Hepatitis B Vaccine Aged Out No longe r eligible based on patient's age to complete this topic Insurance Medicare Medicaid [place] Medicare Medicaid [place] Care Teams Boat Outfitting Supervisor Relationship Specialty Start Date End Date Ciara Garcia MD [address] [place] [phone] PCP - General Internal Medicine 02/03/21
--- OUTSIDE RECORDS SUMMARY | 2024-10-31 17:49 | XMS_ITS | Data Portability ---
Author Organization [place] [facility] Address [address] [place] [phone] Assessment Encounter Date Assessment Date Assessment LastModified [...] nasal spray,padmini pension [phone] dplosktamara [id number], [address] [place], [address], 10:52:18 Patient TargetsNo targets recorded. Patient InstructionsNo instructions recorded. Reason for Referral None Reported. 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 Procedures Surgical History Date Name Laterality Status Provider Name and Address Organization Details Recorded Time 02/22/2024 NasalEndos copy_DP completed KATHRYN KOWALSKI MD 100 [facility] 100, [place], [address], [facility] 02/22/2024 10:50:34 Imaging Results None recorded. [...] Updated DateTime 02/22/2024 175.26 cm 32.5 kg/m2 89959.32 g Lorna Ace [place] - [facility] 02/22/2024 10:40:24 Social History None recorded. Functional Status None recorded. Mental Status None recorded. Family History Nothing Reported. Medical History No medical history recorded. Past Encounters Encounter ID Performer Location Encounter Start Date Encounter Closed Date Diagnosis/Indication Diagnosis SNOMED-CT Code Diagnosis ICD10 Code Diagnosis Note [id number] KATHRYN KOWALSKI MD [facility] [address] [address] 02/22/2024 09:50:45 02/22/2024 10:54:27 Tobacco dependence caused by cigarettes 3659890394 4223104 F17.210 Anterior rhinorrhea 2772 [address]31 J34.89 Allergic rhinitis 318174 04 J30.9 Health Concerns Section Related Observation LastModified by Organization Detai ls LastModified Time None Recorded Concern Status LastModified by Organization Details LastModified Time None Recorded Advance Directives Directive None Recorded Payers Encounter Date Sequence Insurance Name Policy Number Policy Akers Covered Member ID Akers Member ID Guarantor Name 02/22/2024 1 [place] [employer] Efraín Bravo [id number] Efraín Coffman Jr 02/22/2024 2 [place] [facility] Efraín Bravo [id number] Efraín Vallesjeff Jerry Notes Date Note Type Note Provider Name and Address Organization Details Recorded Time 02/22/2024 text/html rhinorrheafoul o saige in mucusonset around summer 2022no trial of abxuses nasal lavage twice dailyno prior nose surgery or imaging+nasal congestion fluctuate depending on how laying downtobacco - 1/2ppd work - 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
== END 2024-10-31 14:58 | disposition home or self-care (01) ==
LOC: HO.HHCL 14:57
PROVIDERS: Visit Provider Nurse Practitioner Primary Care
DX: R39.9 Unspecified symptoms and signs involving the genitourinary system (principal); R35.1 Nocturia; I10 Essential (primary) hypertension; R82.2 Biliuria; Z12.5 Encounter for screening for malignant neoplasm of prostate
CPT/HCPCS: 36415; 80048; 80076; 84153; 87086

== ENCOUNTER 2024-11-22 16:13 | Outpatient (REF) | payer MEDICARE, MEDICAID, SELFPAY ==
--- OUTSIDE RECORDS SUMMARY | 2024-11-22 16:15 | XMS_ITS | Data Portability ---
Author Organization [place] [facility], [facility] Address [address] [place] [phone] Assessment Encounter Date Assessment Date Assessment LastModified [...] nasal spray,padmini pension [phone] dplosktamara [id number], [address] [place], [address], 10:52:18 Patient TargetsNo targets recorded. Patient InstructionsNo instructions recorded. Reason for Referral None Reported. Problems Name Problem SNOMED Code Status Onset Date Resolution Date Notes Provider Name and Address Organization Details Recorded Time Tobacco dependence caused by cigarettes 4238785236454 9107 Active 2023 KATHRYN KOWALSKI MD [address] [place] [address], [phone] 4 10:51:02 Anterior rhinorrhea 498107265 Active 2023 KATHRYN KOWALSKI MD 100 [facility] 100, [place], [address], [facility] 10:51:12 Allergic rhinitis 26572585 Active 2023 KATHRYN KOWALSKI MD 100 [facility] 100, [place], [address], [facility] 4 10:51:19 Problem Notes None recorded. Procedures Surgical History Date Name Laterality Status Provider Name and Address Organization Details Recorded Time 02/22/2024 NasalEndos copy_DP completed KATHRYN KOWALSKI MD 100 [facility] 100, [place], [address], [facility] 02/22/2024 10:50:34 Imaging Results None recorded. Procedure [...] Updated DateTime 02/22/2024 175.26 cm 32.5 kg/m2 59596.32 g Lorna Ace [place] - [facility] 02/22/2024 10:40:24 Social History None recorded. Functional Status None recorded. Mental Status None recorded. Family History Nothing Reported. Medical History No medical history recorded. Past Encounters Encounter ID Performer Location Encounter Start Date Encounter Closed Date Diagnosis/Indication Diagnosis SNOMED-CT Code Diagnosis ICD10 Code Diagnosis Note [id number] KATHRYN KOWALSKI MD [facility] [address] [address] 02/22/2024 09:50:45 02/22/2024 10:54:27 Tobacco dependence caused by cigarettes 0064190065 8246523 F17.210 Anterior rhinorrhea 2772 [address] J34.89 Allergic rhinitis 296096 04 J30.9 Health Concerns Section Related Observation LastModified by Organization Detai ls LastModified Time None Recorded Concern Status LastModified by Organization Details LastModified Time None Recorded Advance Directives Directive None Recorded Payers Insurance Date Sequence Insurance Name Policy Number Policy Akers Covered Member ID Akers Member ID Guarantor Name 07/18/2024 1 [place] [employer] Efraín Bravo [id number] Efraín Coffman Jr 07/17/2024 2 [place] [facility] Efraín Bravo [id number] Efraín Vallesjeff Jerry Notes Date Note Type Note Provider Name and Address Organization Details Recorded Time 02/22/2024 text/html rhinorrheafoul o saige in mucusonset around summer 2022no trial of abxuses nasal lavage twice dailyno prior nose surgery or imaging+nasal congestion fluctuate depending on how laying downtobacco - 1/2ppd 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
--- OUTSIDE RECORDS SUMMARY | 2024-11-22 16:15 | XMS_ITS | Clinical Summary ---
Author Organization [facility] Address [address] [place] [address] Phone Care Team Providers Care Cartography Supervisor Name Role Phone Ciara Garcia MD [...] night Active cholecalciferol (VITAMIN D-3) 1.25 MG (41603 UT) tablet Take 50,000 Units by mouth [...] Medicaid [place] Medicare Medicaid [place] Care Teams Cartography Supervisor Relationship Specialty Start Date End Date Ciara Garcia MD [address] [place] [phone] PCP - General Internal Medicine 02/03/21
== END 2024-11-22 16:14 | disposition home or self-care (01) ==
LOC: HO.HHCLNP 16:13
PROVIDERS: Visit Provider Nurse Practitioner Family
DX: R35.0 Frequency of micturition (principal)
CPT/HCPCS: 87086

== ENCOUNTER 2025-01-14 18:11 | Inpatient (IN) | payer MEDICARE, OTHER, SELFPAY ==
--- OUTSIDE RECORDS SUMMARY | 2025-01-11 23:59 | XMS_ITS | Continuity of Care Document ---
Author Organization [facility] Address [address] [place] [address]- Care Team Providers Care Installation Coordinator Name Role Phone Debbie SOLANO, Faiza Ozuna Primary Care Physician [phone] Encounter [facility] Date(s): 12/12/24 - 01/11/[address] [address] Attending Physician: [id number] Admitting Physician: Admtr, Ar8 Referring Physician: Admtr, Ar8 Encounter Type: Triage Allergies, Adverse Reactions, Alerts Substance Criticality Severity Reaction Reaction Severity Status Other Environmental Allergy 1 marijuana - causes sweating, nausea, dizziness Active 1patient states marijuana causes seizures Medications Aerochamber See Instructions, # 1 each, Maintenance, use with inhaler, 12/12/24 12:43:00 PM EDT, Compound, 175, cm, 10/23/24 12:48:00 EDT, Height Start Date: 12/12/24 Status: Ordered Quantity: 1.0 Unit: each Repeat number: 1 albuterol 90 mcg/inh inhalation powder 2 puffs, Inhalation, Every 6 hours, PRN Wheezing/Shortness of Breath, # 1 each, 6 Refills, Maintenance, 09/24/20 11:27:00 AM EST, [id number], 2 puffs Inhalation Every 6 hours,PRN:Wheezing/Shortness of Breath, 177.89, cm, 06/11/19 8:33:00 EST, Height Start Date: 3/11/21 Status: Ordered Quantity: 1.0 Unit: each Repeat [...] Quantity: 1.0 Unit: each Repeat number: 1 D3 1000 intl units (25 mcg) oral tablet 0 Refills, Maintenance, 10/23/24 12:53:00 PM EDT, Partial fill upon patient request if the prescription is for a schedule II opioid drug. Start Date: 10/23/24 Status: Ordered Repeat number: 1 lisinopril 10 mg oral tablet 10 mg, 1, tablet, By Mouth, Daily in AM, # 30 tablet, Refills 0, Maintenance, 10/18/21 4:44:00 PM EDT, Partial fill upon patient request if the prescription is for a schedule II opioid drug. Start Date: 10/18/21 Status: Ordered Quantity: 30.0 Unit: tablet Repeat number: 1 modafinil 200 mg oral tablet = 200 mg, By Mouth, 2 times a day, about 8 am and noon, # 60 tablet, 5 Refills, Maintenance, 12/12/24 12:50:00 PM EDT, Tablet, [id number], Partial fill upon patient request if the prescriptionis for a schedule II opioid drug., 175, cm, 10/23/24 12:48:00 EDT, Height Start Date: 12/12/24 Status: Ordered Quantity: 60.0 Unit: tablet Repeat number: 6 OxyContin 80 [...] 12/06/13 Status: Ordered Repeat number: 1 Symbicort 160mcg/4.5mcg Inhaler 2, inhalation, Inhalation, 2 times a day, in the morning and the evening rinse mouth and throat after use, # 10.2 Gm, Refills 11, Tot. Refills 11, Maintenance, 12/12/24 12:41:00 PM EDT, Aerosol, [facility], [id number], [id number], 175, cm, 10/23/24 12:48:00 EDT, Height Start Date: 12/12/24 Status: Ordered Quantity: 10.2 Unit: g Repeat number: 12 Problem List Condition Confirmation Course Effective Dates Status Health Status Informant Chronic obstructive pulmonary disease (COPD) Confirmed Active Chronic pain Confirmed Active Hypercholesterolemia Confirmed Active Hypersomnia Confirmed Active Hypoventilation Confirmed Active Mixed sleep apnea Confirmed Active Severe obesity (BMI 35.0-39.9) with comorbidity Confirmed Active Smoking Confirmed Active Social History Social History Type Response Tobacco Interested in cessat ion: No. No Sex Sex Representation Male (finding) Patient Care team information Care Team Personnel Name: Faiza Lewis MD Position: [facility] Outreach Member Role: PCP Address: [address] [place] [address] Telecom: Name: Margarita Montano RN Position: [facility] RN Member Role: Primary Care Nurse Care Team Related Persons Name: LUNA HARRY Insurance Providers Guarantor name: JOHNATHAN HARRY Health Plan Information #: 1 Payer: MEDICARE B Payer Identifier: NA Member Number: [id number] Group Number: NA Subscriber Identifier: [id number] Relationship to Subscriber: self Coverage Type: NA Coverage Verification Date: NA Telecom: NA Address: Health Plan Information #: 2 Payer: [employer] Payer Identifier: NA Member Number: [id number] Group Number: Subscriber Identifier: [id number] Relationship to Subscriber: self Coverage Type: MEDICAID Coverage Verification Date: Telecom: Address:
--- NOTE | ~2025-01-14 | FL_ITS ---
EXAMINATION: FL GUIDANCE ONLY HISTORY: bilateral ureteral stent placement COMPARISON: Correlation is made with a CT of the abdomen and pelvis dated 01/14/2025. TECHNIQUE: Fluoroscopy time: 17.8 seconds. Cumulative Dose: 10.58 mGy. Images: 4. FINDINGS: Fluoroscopic spot films demonstrate placement of a left nephroureteral stent. FL/FL guidance in OR IMPRESSION: Fluoroscopy during procedure. Please see procedure report for additional information. Electronically signed by: Tanner Wells MD 01/16/2025 07:08 AM EDT
--- NOTE | ~2025-01-14 | XR_ITS ---
EXAMINATION: XR CHEST CLINICAL INFORMATION: hypoxia COMPARISON: None available. TECHNIQUE: Frontal view of the chest was obtained. FINDINGS: Lungs are hypoexpanded but clear of acute process. The heart size and pulmonary vascularity is normal. No gross bony abnormality seen. Previously seen spinal electrode is not visualized this time XR/XR chest 1V IMPRESSION: Unremarkable chest exam. Electronically signed by: Kelton Loera MD 01/20/2025 07:21 AM EDT RP
--- NOTE | ~2025-01-14 | XR_ITS ---
CLINICAL HISTORY: abs distension, pain 2 view abdomen Comparison: None Findings: No abnormal bowel dilation to suggest obstruction. No abnormal air-fluid levels or evidence of free intraperitoneal air. No abnormal calcifications. Right upper quadrant surgical clips. Degenerative change of the spine and hips. IMPRESSION: Nonspecific bowel gas pattern. No definite bowel obstruction. This document has been electronically signed by: Thomas Carter DO on 01/14/2025 20:33:51
--- NOTE | ~2025-01-14 | CT_ITS ---
CLINICAL HISTORY: severe distension, no BM x [address] abdomen and pelvis with contrast Comparison: US/IL/SR - US ABDOMEN COMP W ELASTOGRAPHY - 07/14/23 09:28 EST Findings: No consolidation or effusion. Emphysema identified within the bilateral lung bases. The gallbladder is surgically absent. The solid organs are within normal limits. No right hydronephrosis or right hydroureter. The right kidney enhances normally. 9 mm obstructing calculus present at the distal left ureter, near the left ureterovesicular junction, with mild upstream left hydroureter and mild left hydronephrosis. There is mildly delayed enhancement of the left kidney with disproportionate left perinephric fat stranding. No bowel obstruction, pneumoperitoneum, or pneumatosis. Pelvic contents unremarkable. Small, fat containing bilateral inguinal hernias are present. There is borderline bladder wall thickening. The bladder is underdistended. Normal appendix. No acute fracture visualized. Multilevel degenerative disc disease/vacuum disc phenomenon present at the thoracolumbar spine. IMPRESSION: 9 mm obstructing calculus present at the distal left ureter, near the left ureterovesicular junction. There is mild left hydroureter with mild left hydronephrosis. There is mildly delayed enhancement of the left kidney, consistent with obstructive uropathy. Borderline bladder wall thickening. This may be related to bladder underdistention or mild cystitis. May consider correlation with urinalysis results for further evaluation. No bowel obstruction. [id number] stool burden visualized at the transverse colon. This document has been electronically signed by: Dawson Barakat MD on 01/14/2025 22:24:24
[2025-01-14 18:30] VITALS: BP 126/64; BP 172/70; PULSE 76; PULSE 80; RESP 16; TEMP 36.9; O2SAT 93; O2SAT 95; BMI 34.4
--- NOTE | 2025-01-14 18:54 | ED.ABDPAIN ---
HPI - Abdominal Pain General Chief Complaint: Abdominal Pain Stated Complaint: abd pain, ?bowel obstruction Time Seen by Provider: 01/14/25 18:53 History of Present Illness ED Provider: Nicolas Fay MD HPI narrative: 64 male with surgical history with 5 days abdominal pain constipation. Patient reports 5 days without BM he tried a suppository with minimal hard stool. No previous constipation. Says the pain primarily started 5 days ago without trauma in the left lower quadrant/groin he denies any scrotal swelling or hernias down there and the slowly spread to the entire abdomen. He is extremely distended now. No rectal bleeding denies rectal pain. Past surgical history: Hx of cholecystectomy History of pancreatic surgery, childhood umbilical hernia repair S/P insertion of spinal cord stimulator Related Data Home Medications ?Medication ?Instructions ?Recorded ?Confirmed aspirin 81 mg tablet,delayed 81 mg PO DAILY 09/02/20 01/15/25 release simvastatin 40 mg tablet 40 mg PO BEDTIME 09/02/20 01/15/25 oxycodone 80 mg tablet,crush 1 tab PO Q8H 04/06/21 01/15/25 resistant,extended release 12 hr (OxyContin) blood sugar diagnostic (FreeStyle #10 ea 05/12/21 11/02/21 Lite Strips) blood-glucose meter (FreeStyle #1 ea 05/12/21 11/02/21 Lite Meter kit) lancets 28 gauge (FreeStyle #100 ea 05/12/21 11/02/21 Lancets) albuterol sulfate 90 mcg/actuation 2 puff inhalation Q4H PRN muscle 01/15/25 01/15/25 aerosol inhaler (Ventolin HFA) spasm budesonide-formoterol HFA 160 1 inh inhalation DAILY 01/15/25 01/15/25 mcg-4.5 mcg/actuation aerosol inhaler (Symbicort) bupropion HCl 150 mg tablet,12 hr 150 mg PO BID 01/15/25 01/15/25 sustained-release cholecalciferol (vitamin D3) 25 25 mcg PO DAILY 01/15/25 01/15/25 mcg (1,000 unit) tablet cyanocobalamin (vitamin B-12) 1,000 mcg PO DAILY 01/15/25 01/15/25 1,000 mcg tablet finasteride 5 mg tablet 5 mg PO DAILY 01/15/25 01/15/25 ibuprofen 800 mg tablet 800 mg PO Q8H 01/15/25 01/15/25 lisinopril 10 mg tablet 10 mg PO DAILY 01/15/25 01/15/25 metformin 500 mg tablet 500 mg PO BIDWM 01/15/25 01/15/25 modafinil 200 mg tablet 200 mg PO BID 01/15/25 01/15/25 tamsulosin 0.4 mg capsule 0.4 mg PO DAILY 01/15/25 01/15/25 Allergies Allergy/AdvReac Type Severity Reaction Status Date / Time marijuana (cannabis) Allergy Severe Seizure Verified 01/14/25 18:32 (marijuana) varenicline (From Chantix) AdvReac Intermediate Nausea Verified 12/19/23 08:03 [facility] Past Medical History Medical History Complex sleep apnea syndrome COPD (chronic obstructive pulmonary disease) Seizure disorder HTN (hypertension) Nicotine dependence, cigarettes, uncomplicated Cervical radiculopathy Numbness in both hands SUNNY on CPAP Umbilical hernia Pancreas anomaly, congenital Surgical History History of colonoscopy History of tonsillectomy History of cholecystectomy History of liver biopsy History of pancreatic surgery History of elbow surgery S/P insertion of spinal cord stimulator Family History Family History Father Cardiac abnormality Mother No problems noted. Social History Social History Household Members: Spouse Alcohol intake: former Patient Tobacco Use Status: Current everyday Tobacco user Cigarette Packs Per Day: 0.5 Cigarettes Per Day: 10 Years Smoked: 50 years service: No Current occupational status: disabled Physical Exam ED Vital Signs: Vital Signs - 24 hr 01/14/25 18:30 01/14/25 20:49 01/14/25 22:21 Temperature 98.4 F 98.2 F 98.2 F Pulse Rate 80 75 88 Respiratory Rate 16 18 17 Blood Pressure 126/64 122/61 122/78 Pulse Oximetry 93 91 L 92 Oxygen Delivery Method Room Air Room Air Room Air BMI result Body Mass Index 34.4 Const Other: EXAM: Gen: Alert, awake, oriented, not ill or toxic but does appear in significant pain Head: Atraumatic Eyes: Anicteric, Normal conjunctiva. ENT: Moist mucosa, no pallor. ? Neck: Supple. Skin: ?No observable rash or bruising on exposed or examined skin Respiratory: Breathing comfortably, No distress.Clear to auscultation bilaterally, symmetric chest expansion, No wheeze, rales, ronchi. Cardiovascular: Regular rate and rhythm. No murmurs or rub. Well perfused periphery, warm extremities. No edema. ? Abdominal: Profoundly distended. Upper abdominal horizontal and vertical scar he attributes to the pancreas surgery. No hernia or mass. Moderate diffuse tenderness. No fluid wave. : No flank tenderness. Neuro: Alert. Gross movement of all extremities intact. ? Psych: Calm. Cooperative. MSK: No grossly visible deformity. Vital signs: See flowsheet Course Course Course Narrative: 1040pm suspect infection - abnormal CT scan obstructing L ureter and stranding on CT scan notified Urology Dr. Colby 1040pm started cultures and IV ceftriaxone ODESSA 01/14/25 1040pm Reevaluation(s) Reevaluation #1: per Dr. Colby - admit, NPO, OR tomorrow ODESSA 01/14/25 1114pm Medical Decision Making Medical Decision Making [facility] Narrative: [age] male with multiple surgical history of the abdomen with 5 days no BM nausea . Hard stool in the vault but no overt fecal impaction. Given the distention urgent x-ray performed with nonspecific bowel-gas pattern. Pain control IV fluid. RUDY is present probably due to decreased p.o. intake/dehydration, prerenal. No electrolyte derangements. Rectal exam as above shows hard stool without overt impaction. Differential SBO versus ileus versus SBO versus constipation versus GI malignancy. A KI could be prerenal more likely than urinary retention or obstruction. Case briefly discussed with on-call surgeon to coordinate optimal imaging protocols. Surgeon is okay with an urgent IV only contrast CT. Hold off on NG tube. Differential Diagnosis Differential Diagnoses: The differential diagnosis associated with the presentation includes Admission/Observation Consideration of admission/observation: Escalation of care including admission/observation considered admit for further care and OR Consult Healthcare Provider Management of the patient was discussed with: Hospitalist and [employer] Work[employer] Lab Data [facility] Lab Attestation statement: I reviewed the patient's lab results. 01/15/25 03:51 01/15/25 03:51 Labs: Lab Results 01/14/25 01/14/25 01/14/25 Range/Units 19:13 22:06 23:14 WBC 18.6 H (4.8-10.8) X10*3/uL RBC 4.60 (4.60-5.80) X10*6/uL Hgb 14.4 (14.0-18.0) g/dl Hct 43.1 (42.0-52.0) % MCV 93.7 (80.0-98.0) fL MCH 31.3 (27.0-33.0) pg MCHC 33.4 (31.0-36.0) g/dl RDW 13.6 (11.0-16.0) % Plt Count 169 (160-400) X10*3/uL MPV 10.6 (9.4-12.4) fL Immature Gran % (Auto) 0.7 H (0.0-0.4) % Neut % (Auto) 78.4 H (45-73) % Lymph % (Auto) 12.1 L (20-40) % Cavalier % (Auto) 7.7 (2-11) % Eos % (Auto) 0.8 (0-4) % Baso % (Auto) 0.3 (0-2) % Lymph # (Auto) 2.3 (1.2-4.9) X10*3/uL Cavalier # (Auto) 1.4 H (0.1-1.2) X10*3/uL Eos # (Auto) 0.1 (0.0-0.4) X10*3/uL Baso # (Auto) 0.1 (0.0-0.2) X10*3/uL Abs Immat Gran (auto) 0.13 H (0.00-0.03) X10*3/uL Absolute Neuts (auto) 14.6 H (2.0-8.3) x10*3/uL Absolute Nucleated RBC 0.000 (0.0-0.012) X10*3/uL Nucleated RBC % (auto) 0.0 (0.0-0.2) /100WBC Sodium 141 (135-145) mmol/L Potassium 4.8 (3.3-5.1) mmol/L Chloride 104 (96-108) mmol/L Carbon Dioxide 28 (22-29) mmol/L Anion Gap 14 (12-20) BUN 26 H (9-16) mg/dL Creatinine 1.79 H (0.5-1.4) mg/dL Estim Creat Clear Calc 50.1 Estimated GFR 38 Random Glucose 138 H (60-115) mg/dL Lactic Acid 2.6 H* (0.5-2.0) mmol/L Lactic Acid F/U @ 2Hr 1.5 (0.5-2.0) mmol/L Calcium 8.9 (8.4-10.2) mg/dL Total Bilirubin 0.7 (0.0-1.0) mg/dL AST 25 (5-37) U/L ALT 26 (0-40) U/L Alkaline Phosphatase 107 (39-117) U/L Total Protein 6.5 (6.5-8.0) g/dL Albumin 4.4 (3.5-5.0) g/dL Lipase 12 (8-78) U/L Urine Color Yellow Urine Appearance Cloudy Urine pH 5.5 (5.0-9.0) Ur Specific Rawlings >= 1.030 H (1.005-1.025) Urine Protein Negative (Neg-Trace) mg/dL Urine Glucose (UA) Negative (Negative) mg/dL Urine Ketones Negative (Negative) mg/dL Urine Blood Large (3+) H (Negative) Urine Nitrite Negative (Negative) Ur Leukocyte Esterase Trace H (Negative) Urine RBC 11-20 H (0-2) /HPF Urine WBC 6-10 (0-5) /HPF Ur Squamous Epith Cells 0-2 (0-2) /HPF Urine Bacteria None Seen (None Seen) Hyaline Casts 3-5 (0-2) /LPF Independent Interpretation I performed an independent interpretation of an: CT Scan (obstructive uropathy) Radiology Impression Discussion of test interpretation with radiology: I have reviewed the radiologist's reading. Independent Historian Clinical information obtained from an independent historian. History obtained from or confirmed by: Other External Record Review External record reviewed: Outpatient record Medications Administered Generic Name Dose Route Start Last Admin Trade Name Freq PRN Reason Stop Dose Admin Enoxaparin Sodium 40 mg 01/15/25 09:00 01/15/25 09:24 Enoxaparin Sodium 40 Mg/0.4 Ml Syringe SUBCUT Not Given Q24H JUAN Hydromorphone HCl 0.5 mg 01/14/25 23:53 01/15/25 08:39 Hydromorphone Hcl 0.5 Mg/0.5 Ml Syringe IVPUSH 0.5 mg Q4H PRN Administration Pain, Severe (Pain Scale 7-10) Protocol Lactated Ringer's 1,000 mls @ 80 mls/hr 01/14/25 23:45 01/15/25 11:27 Lr IVCONT 80 mls/hr .[id number] JUAN Administration Lactated Ringer's 1,000 mls @ 80 mls/hr 01/15/25 14:15 01/15/25 14:29 Lr IVCONT 80 mls/hr .[id number] JUAN Administration Insulin Human Lispro 0 unit 01/15/25 07:30 01/15/25 12:05 Insulin Lispro 100 Unit/Ml 3 Ml Vial SUBCUT Not Given QIDACHS [facility] Protocol Melatonin 6 mg 01/14/25 23:53 01/15/25 01:54 Melatonin 3 Mg Tablet PO 6 mg BEDTIME PRN Administration Insomnia Oxycodone HCl 80 mg 01/15/25 11:00 01/15/25 12:08 Oxycodone Hcl Er 40 Mg Tab.Er.12h PO 80 mg Q8H JUAN Administration Sodium Chloride 3 ml 01/15/25 00:00 01/15/25 08:20 0.9 % Sodium Chloride Flush 3 Ml Syringe IVFLUSH Not Given QSHIFT [facility] Discontinued Medications Generic Name Dose Route Start Last Admin Trade Name Freq PRN Reason Stop Dose Admin Albuterol Sulfate 2.5 mg 01/15/25 14:14 01/15/25 14:18 Albuterol Sulfate (0.083%) 2.5 Mg/3 Ml Vial.Neb INHALE 01/15/25 14:15 2.5 mg ONCE ONE Administration Ceftriaxone Sodium 1 gm 01/14/25 22:37 01/14/25 23:06 Ceftriaxone Sodium 1 Gm Vial IVPUSH 01/14/25 22:38 1 gm ONCE ONE Administration Glycerin 1 supp 01/14/25 18:55 01/14/25 19:35 Glycerin Adult Supp.Rect WA 01/14/25 18:56 1 supp ONCE ONE Administration Hydromorphone HCl 1 mg 01/14/25 19:31 01/14/25 19:37 Hydromorphone Hcl 2 Mg Tablet PO 01/14/25 19:32 1 mg ONCE ONE Administration Sodium Chloride 1,000 mls @ 999 mls/hr 01/14/25 20:00 01/14/25 22:21 Ns IV 01/14/25 21:00 Infused .Q1H1M JUAN Infusion Lactated Ringer's 1,000 mls @ 100 mls/hr 01/14/25 23:45 01/15/25 00:18 Lr IVCONT Infused .Q10H JUAN Infusion Iohexol 100 ml 01/14/25 21:39 01/14/25 21:40 Iohexol 350 Mg/Ml 100 Ml Infus..Btl IV 01/14/25 21:40 100 ml ONCE ONE Administration Lactulose 20 gm 01/14/25 18:55 01/14/25 19:25 Lactulose 20 Gm/30 Ml Solution PO 01/14/25 18:56 20 gm ONCE ONE Administration Morphine Sulfate 1 mg 01/15/25 01:38 01/15/25 01:54 Morphine Sulfate 2 Mg/Ml Cartridge IVPUSH 01/15/25 01:39 1 mg ONCE ONE Administration Protocol Nicotine 21 mg 01/14/25 20:53 01/14/25 22:21 Nicotine 21 Mg Patch.Td24 TRANSDERMA 01/14/25 20:54 21 mg ONCE ONE Administration Simethicone 160 mg 01/14/25 18:55 01/14/25 19:25 Simethicone 80 Mg Tab.Chew PO 01/14/25 18:56 160 mg ONCE ONE Administration Sodium Biphosphate/Sodium Phosphate 133 ml 01/14/25 20:45 01/14/25 20:58 Sodium Phosphate,Cavalier-Dibasic 133 Ml Enema WA 01/14/25 20:46 133 ml ONCE ONE Administration Discharge Plan Discharge Clinical Impression: RUDY (acute kidney injury), Obstruction, uropathy Elevated WBC count Qualifiers: Leukocytosis type: unspecified Qualified Code(s): D72.829 - Elevated white blood cell count, unspecified Abdominal pain Qualifiers: Abdominal location: generalized Qualified Code(s): R10.84 - Generalized abdominal pain Patient Disposition: Admitted As Inpatient Interventions: Admission Worksheet (ED) Last Done: 01/15/25 14:19 Discharge Date/Time: 01/15/25 14:20
[2025-01-14 19:21] LABS: MANUAL DIFF FLAG NO
[2025-01-14 19:22] LABS: Hematocrit 43.1 % (42.0-52.0); Hemoglobin 14.4 g/dl (14.0-18.0); Imm Gran Abs Auto 0.13 X10*3/uL (0.00-0.03); Imm Gran Pct Auto 0.7 % (0.0-0.4); Lymphocytes Absolute Auto 2.3 X10*3/uL (1.2-4.9); Mean Corpuscular HGB Conc 33.4 g/dl (31.0-36.0); Mean Corpuscular Hemoglobin 31.3 pg (27.0-33.0); Mean Corpuscular Volume 93.7 fL (80.0-98.0); NRBC Abs Auto 0.000 X10*3/uL (0.0-0.012); NRBC Pct Auto 0.0 /100WBC (0.0-0.2); Platelet Count 169 X10*3/uL (160-400); Red Blood Count 4.60 X10*6/uL (4.60-5.80); White Blood Count 18.6 X10*3/uL (4.8-10.8)
[2025-01-14 19:39] LABS: Alanine Aminotransferase 26 U/L (0-40); Albumin Level 4.4 g/dL (3.5-5.0); Alkaline Phosphatase 107 U/L (39-117); Anion Gap 14 (12-20); Aspartate Amino Transferase 25 U/L (5-37); Blood Urea Nitrogen 26 mg/dL (9-16); Calcium 8.9 mg/dL (8.4-10.2); Carbon Dioxide 28 mmol/L (22-29); Chloride 104 mmol/L (96-108); Creatinine Clr Calc Pharmacy 50.1; Estimated Glomerular Filt Rate 38; Lipase 12 U/L (8-78); Potassium 4.8 mmol/L (3.3-5.1); Sodium 141 mmol/L (135-145); Total Protein 6.5 g/dL (6.5-8.0)
--- OUTSIDE RECORDS SUMMARY | 2025-01-14 20:04 | XMS_ITS | Clinical Summary ---
Author Organization [facility] Address [address] [place] [address] Phone Care Team Providers Care Low Voltage Technician Name Role Phone Ciara Garcia MD [...] night Active cholecalciferol (VITAMIN D-3) 1.25 MG (13107 UT) tablet Take 50,000 Units by mouth [...] Medicaid [place] Care Teams Low Voltage Technician Relationship Specialty Start Date End Date Ciara Garcia MD [address] [place] [phone] PCP - General Internal Medicine 02/03/21
--- OUTSIDE RECORDS SUMMARY | 2025-01-14 20:04 | XMS_ITS | Patient Health Record ---
Author Organization [facility] Address [address] [place] [address] Care Team Providers Care Supervisor Typesetting Name Role Phone Tanner Carrera [phone] Reason For Referral No Information Plan Of Treatment No Information
--- OUTSIDE RECORDS SUMMARY | 2025-01-14 20:04 | XMS_ITS | Data Portability ---
Author Organization [place] - [facility] Address [address] [place] [address] [place] [phone] Assessment Encounter Date Assessment Date Assessment LastModified [...] mcg/actua tion nasal spray,padmini pension [phone] [email or web address] [id number], [address] [place], [address], 10:52:18 Patient TargetsNo targets recorded. Patient InstructionsNo instructions recorded. Reason for Referral None Reported. Problems Name Problem SNOMED Code Status Onset Date Resolution Date Notes Provider Name and Address Organization Details Recorded Time Tobacco dependence caused by cigarettes [id number] 9107 Active 2023 KATHRYN KOWALSKI MD [address] [place] [address], [phone] 9[facility] - [facility] 4 10:51:02 Anterior rhinorrhea 416686039 Active 2023 KATHRYN KOWALSKI MD [address] [facility], [place], [phone], [facility] 4 10:51:12 Allergic rhinitis 76962071 Active 2023 KATHRYN KOWALSKI MD [address] [facility] [address] [facility] [address], [place], [phone], [facility] 4 10:51:19 Problem Notes None recorded. Procedures Surgical History Date Name Laterality Status Provider Name and Address Organization Details Recorded Time 02/22/2024 NasalEndos copy_DP completed KATHRYN KOWALSKI MD [address] [facility] [address], [place], [address], [facility] 02/22/2024 10:50:34 Imaging Results None recorded. Procedure [...] Updated DateTime 02/22/2024 175.26 cm 32.5 kg/m2 70878.32 g Lorna Ace [place] - [facility] 02/22/2024 10:40:24 Social History None recorded. Functional Status None recorded. Mental Status None recorded. Family History Nothing Reported. Medical History No medical history recorded. Past Encounters Encounter ID Performer Location Encounter Start Date Encounter Closed Date Diagnosis/Indication Diagnosis SNOMED-CT Code Diagnosis ICD10 Code Diagnosis Note [id number] KATHRYN KOWALSKI MD [facility] [address] [phone] 02/22/2024 09:50:45 02/22/2024 10:54:27 Tobacco dependence caused by cigarettes [id number] 9384668 F17.210 Anterior rhinorrhea 2772 [address]8934 J34.89 Allergic rhinitis 298625 04 J30.9 Health Concerns Section Related Observation LastModified by Organization Detai ls LastModified Time None Recorded Concern Status LastModified by Organization Details LastModified Time None Recorded Advance Directives Directive None Recorded Payers Insurance Date Sequence Insurance Name Policy Number Policy Akers Covered Member ID Akers Member ID Guarantor Name 07/18/2024 1 [place] [employer] Efraín Brvao [id number] Efraín Coffman Jr 07/17/2024 2 [place] [facility] Efraín Barvo [id number] Efraín Augustus Jr Notes Date Note Type Note Provider Name and Address Organization Details Recorded Time 02/22/2024 text/html rhinorrheafoul o saige in mucusonset around summer 2022no trial of abxuses nasal lavage twice dailyno prior nose surgery or imaging+nasal congestion fluctuate depending on how laying downtobacco - 1/2ppd work - disabled, 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 - [facility] 02/22/2024 10:54:45
[2025-01-14 20:49] VITALS: BP 122/61; PULSE 75; RESP 18; TEMP 36.8; O2SAT 91
[2025-01-14 21:20] LABS: Reflex Lactate? Lactic Acid Added
[2025-01-14] MEDS: iohexoL 350 MG/ML 100 ML INFUS..BTL IV (21:40)
[2025-01-14 22:21] VITALS: BP 122/78; PULSE 88; RESP 17; TEMP 36.8; O2SAT 92
[2025-01-14] MEDS: Nicotine 21 MG PATCH.TD24 TRANSDERMA (22:21)
--- NOTE | 2025-01-14 22:27 | PC.NURSE ---
pt states enema was somewhat effective, he was able to pass a small bowel movement, gave him some relief.
[2025-01-14 22:28] LABS: ~Lactic Acid-LAB USE ONLY 1.5 mmol/L (0.5-2.0)
[2025-01-14 23:24] LABS: Appearance Urine Cloudy; Glucose Urine UA Negative (Negative); PH 5.5 (5.0-9.0); Specific Gravity - Urine >= 1.030 (1.005-1.025); UMIC TRIGGER UACC YES
[2025-01-14 23:45] LABS: UACC Culture Trigger YES
[2025-01-14 23:53] VITALS: BP 124/75; PULSE 69; RESP 17; TEMP 36.7; O2SAT 92
--- NOTE | 2025-01-14 23:56 | PM.IMHP ---
History of Present Illness Date of Service: 01/14/25 Chief Complaint: Abdominal pain 64-year-old male with a past medical history of HTN, HLD, COPD, SUNNY, seizure disorder, cervical radiculopathy, nicotine dependence; history of pancreatic surgery; history of spinal cord stimulator; presented to the hospital with a chief complaint of abdominal pain. Patient reports that for the past 4 days he has been having lower abdominal pain. Associated nausea. Denies any vomiting. Denies any urinary symptoms. Denies any blood in the urine. Patient reported having subjective chills. Patient denies any chest pain or palpitations. Review of all other systems is negative except mentioned above ER course: Per ER team, patient noted to have diffuse mild abdominal tenderness; CT abdomen pelvis showed findings concerning for left ureteral stone with obstruction; urinalysis slightly positive-given ceftriaxone. Urology was notified. [facility] Medical History (Updated 01/15/25 @ 05:54 by Emmanuel Aguilera MD) Complex sleep apnea syndrome COPD (chronic obstructive pulmonary disease) Seizure disorder HTN (hypertension) Nicotine dependence, cigarettes, uncomplicated Cervical radiculopathy Numbness in both hands SUNNY on CPAP Umbilical hernia Pancreas anomaly, congenital Family History Father Cardiac abnormality Mother No problems noted. Surgical History (Updated 11/21/24 @ 12:41 by Neena Colunga PA-C) History of colonoscopy History of tonsillectomy History of cholecystectomy History of liver biopsy History of pancreatic surgery History of elbow surgery S/P insertion of spinal cord stimulator Social History Household Members: Spouse Alcohol intake: former Patient Tobacco Use Status: Current everyday Tobacco user Cigarette Packs Per Day: 0.5 Cigarettes Per Day: 4 Years Smoked: 50 years Smoked in Last 30 Days: Yes Use of substances other than those prescribed or required for medical reasons: No Advance Directives: No Advance Directives Information Provided: No Current occupational status: disabled Meds Allergies Allergy/AdvReac Type Severity Reaction Status Date / Time marijuana (cannabis) Allergy Severe Seizure Verified 01/14/25 18:32 (marijuana) varenicline (From Chantix) AdvReac Intermediate Nausea Verified 12/19/23 08:03 Active Medications: Current Medications Lactated Ringer's (Lr) 1,000 mls @ 80 mls/hr IVCONT .[id number] JUAN Home Medications ?Medication ?Instructions ?Recorded ?Confirmed ?Last Taken ?Type aspirin 81 mg tablet,delayed 81 mg PO DAILY 09/02/20 11/02/21 Unknown History release chlorthalidone 50 mg tablet 50 mg PO DAILY 09/02/20 11/02/21 Unknown History ergocalciferol (vitamin D2) 1,250 1,250 mcg PO QWEEK 09/02/20 11/02/21 Unknown History mcg (50,000 unit) capsule hydrochlorothiazide 25 mg tablet 25 mg PO DAILY 09/02/20 11/02/21 Unknown History meloxicam 7.5 mg tablet 7.5 mg PO BID 09/02/20 11/02/21 Unknown History simvastatin 40 mg tablet 40 mg PO BEDTIME 09/02/20 11/02/21 Unknown History glipizide 2.5 mg tablet, extended 2.5 mg PO QAM 02/04/21 11/02/21 Unknown History release 24 hr naloxone 4 mg/actuation nasal spray 4 spray intranasal USEASDIRECTD 02/04/21 11/02/21 Unknown History umeclidinium 62.5 mcg/actuation 1 inh inhalation DAILY 02/04/21 11/02/21 Unknown History blister powder for inhalation oxycodone 80 mg tablet,crush 1 tab PO Q8H 04/06/21 11/02/21 Unknown History resistant,extended release 12 hr (OxyContin) amlodipine 5 mg tablet 5 mg PO DAILY 05/04/21 11/02/21 Unknown History alcohol swabs (Alcohol Prep Pads) 0 pad topical 05/12/21 11/02/21 Unknown History blood sugar diagnostic (FreeStyle #10 ea 05/12/21 11/02/21 Unknown History Lite Strips) blood-glucose meter (FreeStyle #1 ea 05/12/21 11/02/21 Unknown History Lite Meter kit) lancets 28 gauge (FreeStyle #100 ea 05/12/21 11/02/21 Unknown History Lancets) Physical Exam Vital Signs and Narrative: Vital Signs: Last Vital Signs Temp 98.2 F 01/14/25 22:21 Pulse 88 01/14/25 22:21 Resp 17 01/14/25 22:21 BP 122/78 01/14/25 22:21 Pulse Ox 92 01/14/25 22:21 O2 Del Method Room Air 01/14/25 22:21 BMI result Body Mass Index 34.4 Gen: Appears be in no acute distress HEENT: NCAT, Moist mucosa. Pulmonary: Vesicular breath sounds, fair air entry CVS: Normal S1-S2 Abdomen: BS+, Soft, mildly tender in the bilateral lower quadrants Extremities: Warm well perfused Neuro: Alert and awake. Results Labs 01/15/25 03:51 01/14/25 19:13 Labs: Laboratory Results - last 24 hr 01/14/25 01/14/25 01/14/25 19:13 22:06 23:14 MCV 93.7 MCH 31.3 MCHC 33.4 RDW 13.6 Plt Count 169 MPV 10.6 Immature Gran % (Auto) 0.7 H Neut % (Auto) 78.4 H Lymph % (Auto) 12.1 L [place] % (Auto) 7.7 Eos % (Auto) 0.8 Baso % (Auto) 0.3 Lymph # (Auto) 2.3 [place] # (Auto) 1.4 H Eos # (Auto) 0.1 Baso # (Auto) 0.1 Abs Immat Gran (auto) 0.13 H Absolute Neuts (auto) 14.6 H Absolute Nucleated RBC 0.000 Nucleated RBC % (auto) 0.0 Anion Gap 14 Estim Creat Clear Calc 50.1 Estimated GFR 38 Random Glucose 138 H Lactic Acid 2.6 H* Lactic Acid F/U @ 2Hr 1.5 Calcium 8.9 Total Bilirubin 0.7 AST 25 ALT 26 Alkaline Phosphatase 107 Total Protein 6.5 Albumin 4.4 Lipase 12 Urine Color Yellow Urine Appearance Cloudy Urine pH 5.5 Ur Specific [place] >= 1.030 H Urine Protein Negative Urine Glucose (UA) Negative Urine Ketones Negative Urine Blood Large (3+) H Urine Nitrite Negative Ur Leukocyte Esterase Trace H Urine RBC 11-20 H Urine WBC 6-10 Ur Squamous Epith Cells 0-2 Urine Bacteria None Seen Hyaline Casts 3-5 Assessment and Plan (1) Ureteral stone: Status: Acute Plan 64-year-old male with a past medical history of HTN, HLD, diabetes, COPD, SUNNY, seizure disorder, cervical radiculopathy, nicotine dependence; history of pancreatic surgery; history of spinal cord stimulator; presented to the hospital with a chief complaint of abdominal pain. Admitted for following Obstructing left ureteral stone: Mild left hydronephrosis: UTI: Continue ceftriaxone Pain control Urology was notified NPO after midnight Gentle IV fluids COPD: Stable. Vikash p.r.n. SUNNY: Continue home CPAP Diabetes: Insulin sliding scale DVT prophylaxis: Lovenox Code status: Full code Quality Stroke Does the patient have a stroke diagnosis?: No VTE Prior VTE?: No VTE Risk Level:: Medical - moderate - high VTE Device Contraindication: Treatment Not Indicated VTE Drug Contraindication: N/A - Med Ordered
[2025-01-15] VITALS (12 sets, daily range): BP systolic 89–146; BP diastolic 56–78; PULSE 67–75; RESP 16–21; TEMP 36.6–37.1; O2SAT 88–95; BMI 33.6
[2025-01-15] MEDS: Lactated Ringers 1,000 ML 100 ML IVCONT (00:07)
[2025-01-15] MEDS: Lactated Ringers 1,000 ML 80 ML IVCONT ×3 (00:25→14:29)
[2025-01-15 05:37] LABS: MANUAL DIFF FLAG NO
[2025-01-15 05:43] LABS: Hematocrit 40.7 % (42.0-52.0); Hemoglobin 13.8 g/dl (14.0-18.0); Imm Gran Abs Auto 0.12 X10*3/uL (0.00-0.03); Imm Gran Pct Auto 0.7 % (0.0-0.4); Lymphocytes Absolute Auto 1.8 X10*3/uL (1.2-4.9); Mean Corpuscular HGB Conc 33.9 g/dl (31.0-36.0); Mean Corpuscular Hemoglobin 31.3 pg (27.0-33.0); Mean Corpuscular Volume 92.3 fL (80.0-98.0); NRBC Abs Auto 0.000 X10*3/uL (0.0-0.012); NRBC Pct Auto 0.0 /100WBC (0.0-0.2); Platelet Count 156 X10*3/uL (160-400); Red Blood Count 4.41 X10*6/uL (4.60-5.80); White Blood Count 16.5 X10*3/uL (4.8-10.8)
[2025-01-15 05:56] LABS: Anion Gap 15 (12-20); Blood Urea Nitrogen 22 mg/dL (9-16); Calcium 8.2 mg/dL (8.4-10.2); Carbon Dioxide 22 mmol/L (22-29); Chloride 105 mmol/L (96-108); Creatinine Clr Calc Pharmacy 57.1; Estimated Glomerular Filt Rate 44; Potassium 4.4 mmol/L (3.3-5.1); Sodium 138 mmol/L (135-145)
[2025-01-15 08:08] LABS: Glucose, Whole Blood 129 mg/dL (60-115)
--- NOTE | 2025-01-15 08:48 | PC.NURSE ---
pt is alert and oriented, skin pwd, respiration even and unlabored, pt reports epigastric/mid abd pain 10/10 denies nausea at this time, vs stable
--- NOTE | 2025-01-15 09:15 | PHA.MEDREC ---
Addendum entered by Lynsey Davidson RPh 01/15/25 10:38: MED REC REVIEWED BY [facility] Original Note: Pharmacy Consult ? Medication Reconciliation Pharmacy has completed the medication reconciliation. Spoke with pt and he was able to confirm what he takes for current at home medications.
--- NOTE | 2025-01-15 10:19 | PM.UROCN ---
History of Present Illness Consult details Consult date: 01/15/25 Narrative: 64-year-old male with a past medical history of HTN, HLD, COPD, SUNNY, seizure disorder, cervical radiculopathy, nicotine dependence; history of pancreatic surgery; history of spinal cord stimulator; presented to the ED with a chief complaint of abdominal pain. Associated nausea. Denies any vomiting. Denies any blood in the urine. Patient reported having subjective chills. Labs on admission,creat 1.79, WBC-18.6. CTAP: Left distal ureteral stone 9mm Review of Systems Review of Systems: Yes all other systems are reviewed and are negative Constitutional: Constitutional: Reports no additional constitutional complaints Eyes: Eyes: Reports no additional eye complaints ENT: Reports system reviewed and no additional complaints, except as documented Cardiovascular: Cardiovascular: Reports no additional cardiovascular complaints Respiratory: Respiratory: Reports no additional respiratory complaints Gastrointestinal: Gastrointestinal: Reports no additional gastrointestinal complaints Genitourinary: Genitourinary: Reports as per HPI Musculoskeletal: Musculoskeletal: Reports no additional musculoskeletal complaints Integumentary/Breasts: Skin/Breast: Reports system reviewed and no additional complaints, except as docu Neurologic: Reports system reviewed and no additional complaints, except as documented Psychiatric: Psychiatric: Reports no additional psychiatric complaints Endocrine: Endocrine: Reports no additional endocrine complaints Hematologic/Lymphatic: Hematologic/Lymphatic: Reports no additional hematologic/lymphatic complaints Allergic/Immunologic: Allergic/Immunologic: Reports no additional allergic/immunologic complaints PMFSH Past Medical History Medical History Complex sleep apnea syndrome COPD (chronic obstructive pulmonary disease) Seizure disorder HTN (hypertension) Nicotine dependence, cigarettes, uncomplicated Cervical radiculopathy Numbness in both hands SUNNY on CPAP Umbilical hernia Pancreas anomaly, congenital Family History Family History Father Cardiac abnormality Mother No problems noted. Surgical History Surgical History History of colonoscopy History of tonsillectomy History of cholecystectomy History of liver biopsy History of pancreatic surgery History of elbow surgery S/P insertion of spinal cord stimulator Social History Social History Household Members: Spouse Alcohol intake: former Patient Tobacco Use Status: Current everyday Tobacco user Cigarette Packs Per Day: 0.5 Cigarettes Per Day: 10 Years Smoked: 50 years service: No Current occupational status: disabled Meds Allergies Allergy/AdvReac Type Severity Reaction Status Date / Time marijuana (cannabis) Allergy Severe Seizure Verified 01/14/25 18:32 (marijuana) varenicline (From Chantix) AdvReac Intermediate Nausea Verified 12/19/23 08:03 Active Medications: Current Medications Acetaminophen (Acetaminophen 325 Mg Tablet) 650 mg PO Q6H PRN PRN Reason: Pain, Mild 1-3,fever,headache Benzonatate (Benzonatate 100 Mg Capsule) 100 mg PO TID PRN PRN Reason: Cough Calcium Carbonate (Calcium Carbonate 750 Mg Tab.Chew) 750 mg PO Q4H PRN PRN Reason: Heartburn Ceftriaxone Sodium (Ceftriaxone Sodium 1 Gm Vial) 1 gm IVPUSH Q24H JUAN Dextrose (Dextrose 50 % 25 Gm/50 Ml Syringe) 25 gm IVPUSH Q15M PRN; Protocol PRN Reason: per Hypoglycemia Standing Ord. Enoxaparin Sodium (Enoxaparin Sodium 40 Mg/0.4 Ml Syringe) 40 mg SUBCUT Q24H JUAN Last Admin: 01/15/25 09:24 Dose: Not Given Glucose (Glucose Gel 15 Gm Gel..Gram.) 15 gm PO Q15M PRN; Protocol PRN Reason: per Hypoglycemia Standing Ord. Hydromorphone HCl (Hydromorphone Hcl 0.5 Mg/0.5 Ml Syringe) 0.5 mg IVPUSH Q4H PRN; Protocol PRN Reason: Pain, Severe (Pain Scale 7-10) Last Admin: 01/15/25 08:39 Dose: 0.5 mg Lactated Ringer's (Lr) 1,000 mls @ 80 mls/hr IVCONT .[id number] JUAN Last Admin: 01/15/25 00:25 Dose: 80 mls/hr Insulin Human Lispro (Insulin Lispro 100 Unit/Ml 3 Ml Vial) 0 unit SUBCUT QIDACHS [facility]; Protocol Last Admin: 01/15/25 08:19 Dose: Not Given Magnesium Hydroxide (Milk Of Magnesia 30 Ml Oral.Susp) 30 ml PO DAILY PRN PRN Reason: Constipation Melatonin (Melatonin 3 Mg Tablet) 6 mg PO BEDTIME PRN PRN Reason: Insomnia Last Admin: 01/15/25 01:54 Dose: 6 mg Sodium Chloride (0.9 % Sodium Chloride Flush 3 Ml Syringe) 3 ml IVFLUSH HIFT [facility] Last Admin: 01/15/25 08:20 Dose: Not Given Home Medications ?Medication ?Instructions ?Recorded ?Confirmed ?Last Taken ?Type aspirin 81 mg tablet,delayed 81 mg PO DAILY 09/02/20 01/15/25 01/14/25 History release simvastatin 40 mg tablet 40 mg PO BEDTIME 09/02/20 01/15/25 01/14/25 History oxycodone 80 mg tablet,crush 1 tab PO Q8H 04/06/21 01/15/25 01/14/25 History resistant,extended release 12 hr (OxyContin) blood sugar diagnostic (FreeStyle #10 ea 05/12/21 11/02/21 Unknown History Lite Strips) blood-glucose meter (FreeStyle #1 ea 05/12/21 11/02/21 Unknown History Lite Meter kit) lancets 28 gauge (FreeStyle #100 ea 05/12/21 11/02/21 Unknown History Lancets) albuterol sulfate 90 mcg/actuation 2 puff inhalation Q4H PRN muscle 01/15/25 01/15/25 Unknown History aerosol inhaler (Ventolin HFA) spasm budesonide-formoterol HFA 160 1 inh inhalation DAILY 01/15/25 01/15/25 01/14/25 History mcg-4.5 mcg/actuation aerosol inhaler (Symbicort) bupropion HCl 150 mg tablet,12 hr 150 mg PO BID 01/15/25 01/15/25 01/14/25 History sustained-release cholecalciferol (vitamin D3) 25 25 mcg PO DAILY 01/15/25 01/15/25 01/14/25 History mcg (1,000 unit) tablet cyanocobalamin (vitamin B-12) 1,000 mcg PO DAILY 01/15/25 01/15/25 01/14/25 History 1,000 mcg tablet finasteride 5 mg tablet 5 mg PO DAILY 01/15/25 01/15/25 01/14/25 History ibuprofen 800 mg tablet 800 mg PO Q8H 01/15/25 01/15/25 01/14/25 History lisinopril 10 mg tablet 10 mg PO DAILY 01/15/25 01/15/25 01/14/25 History metformin 500 mg tablet 500 mg PO BIDWM 01/15/25 01/15/25 01/14/25 History modafinil 200 mg tablet 200 mg PO BID 01/15/25 01/15/25 01/14/25 History tamsulosin 0.4 mg capsule 0.4 mg PO DAILY 01/15/25 01/15/25 01/14/25 History Physical Exam Vital Signs: Vital Signs: Last Vital Signs Temp 98.2 F 01/15/25 08:26 Pulse 68 01/15/25 10:15 Resp 20 01/15/25 10:15 BP 111/75 01/15/25 10:15 Pulse Ox 95 01/15/25 10:15 O2 Del Method Room Air 01/15/25 10:15 BMI result Body Mass Index 34.4 Results Labs 01/15/25 03:51 01/15/25 03:51 Labs: Abnormal lab results 01/14/25 01/14/25 01/15/25 Range/Units 19:13 23:14 03:51 WBC 18.6 H 16.5 H (4.8-10.8) X10*3/uL RBC 4.41 L (4.60-5.80) X10*6/uL Hgb 13.8 L (14.0-18.0) g/dl Hct 40.7 L (42.0-52.0) % Plt Count 156 L (160-400) X10*3/uL Immature Gran % (Auto) 0.7 H 0.7 H (0.0-0.4) % Neut % (Auto) 78.4 H 80.0 H (45-73) % Lymph % (Auto) 12.1 L 11.1 L (20-40) % [place] # (Auto) 1.4 H (0.1-1.2) X10*3/uL Abs Immat Gran (auto) 0.13 H 0.12 H (0.00-0.03) X10*3/uL Absolute Neuts (auto) 14.6 H 13.2 H (2.0-8.3) x10*3/uL BUN 26 H 22 H (9-16) mg/dL Creatinine 1.79 H 1.57 H (0.5-1.4) mg/dL POC Glucose (60-115) mg/dL Random Glucose 138 H 137 H (60-115) mg/dL Lactic Acid 2.6 H* (0.5-2.0) mmol/L Calcium 8.2 L D (8.4-10.2) mg/dL Ur Specific [place] >= 1.030 H (1.005-1.025) Urine Blood Large (3+) H (Negative) Ur Leukocyte Esterase Trace H (Negative) Urine RBC 11-20 H (0-2) /HPF 01/15/25 Range/Units 08:04 WBC (4.8-10.8) X10*3/uL RBC (4.60-5.80) X10*6/uL Hgb (14.0-18.0) g/dl Hct (42.0-52.0) % Plt Count (160-400) X10*3/uL Immature Gran % (Auto) (0.0-0.4) % Neut % (Auto) (45-73) % Lymph % (Auto) (20-40) % [place] # (Auto) (0.1-1.2) X10*3/uL Abs Immat Gran (auto) (0.00-0.03) X10*3/uL Absolute Neuts (auto) (2.0-8.3) x10*3/uL BUN (9-16) mg/dL Creatinine (0.5-1.4) mg/dL POC Glucose 129 H (60-115) mg/dL Random Glucose (60-115) mg/dL Lactic Acid (0.5-2.0) mmol/L Calcium (8.4-10.2) mg/dL Ur Specific [place] (1.005-1.025) Urine Blood (Negative) Ur Leukocyte Esterase (Negative) Urine RBC (0-2) /HPF Short CBC 01/14/25 01/15/25 Range/Units 19:13 03:51 WBC 18.6 H 16.5 H (4.8-10.8) X10*3/uL Hgb 14.4 13.8 L (14.0-18.0) g/dl Hct 43.1 40.7 L (42.0-52.0) % Plt Count 169 156 L (160-400) X10*3/uL BMP 01/14/25 01/15/25 19:13 03:51 Sodium 141 138 Potassium 4.8 4.4 Chloride 104 105 Carbon Dioxide 28 22 BUN 26 H 22 H Creatinine 1.79 H 1.57 H Calcium 8.9 8.2 L D Liver Function 01/14/25 Range/Units 19:13 Total Bilirubin 0.7 (0.0-1.0) mg/dL AST 25 (5-37) U/L ALT 26 (0-40) U/L Alkaline Phosphatase 107 (39-117) U/L Albumin 4.4 (3.5-5.0) g/dL Urine 01/14/25 Range/Units 23:14 Urine Color Yellow Urine Appearance Cloudy Urine pH 5.5 (5.0-9.0) Ur Specific [place] >= 1.030 H (1.005-1.025) Urine Protein Negative (Neg-Trace) mg/dL Urine Glucose (UA) Negative (Negative) mg/dL Imaging Additional studies: Date of Service: 01/14/25 CLINICAL HISTORY: severe distension, no BM x [address] abdomen and pelvis with contrast Comparison: US/[place]/SR - US ABDOMEN COMP W ELASTOGRAPHY - 07/14/23 09:28 EST Findings: No consolidation or effusion. Emphysema identified within the bilateral lung bases. The gallbladder is surgically absent. The solid organs are within normal limits. No right hydronephrosis or right hydroureter. The right kidney enhances normally. 9 mm obstructing calculus present at the distal left ureter, near the left ureterovesicular junction, with mild upstream left hydroureter and mild left hydronephrosis. There is mildly delayed enhancement of the left kidney with disproportionate left perinephric fat stranding. No bowel obstruction, pneumoperitoneum, or pneumatosis. Pelvic contents unremarkable. Small, fat containing bilateral inguinal hernias are present. There is borderline bladder wall thickening. The bladder is underdistended. Normal appendix. No acute fracture visualized. Multilevel degenerative disc disease/vacuum disc phenomenon present at the thoracolumbar spine. IMPRESSION: 9 mm obstructing calculus present at the distal left ureter, near the left ureterovesicular junction. There is mild left hydroureter with mild left hydronephrosis. There is mildly delayed enhancement of the left kidney, consistent with obstructive uropathy. Borderline bladder wall thickening. This may be related to bladder underdistention or mild cystitis. May consider correlation with urinalysis results for further evaluation. No bowel obstruction. Yaht-kz-tufkevle stool burden visualized at the transverse colon. Assessment and Plan (1) RUDY (acute kidney injury): Status: Acute (2) Ureteral stone: Status: Acute (3) Obstruction, uropathy: Status: Acute (4) Elevated WBC count: Qualifiers: Leukocytosis type: unspecified Qualified Code(s): D72.829 - Elevated white blood cell count, unspecified Status: Acute Plan Keep NPO. Cystscopy Left ureteral stent possible ureteroscopy Procedures Date of Service Date of Service: 01/15/25
--- NOTE | 2025-01-15 11:13 | HO.PM.IMPN ---
Subjective Subjective Date of Service: 01/15/25 Interval History: flank pain Physical Exam Vital Signs: Vital Signs: Last Vital Signs Temp 98.2 F 01/15/25 08:26 Pulse 68 01/15/25 10:15 Resp 20 01/15/25 10:15 BP 111/75 01/15/25 10:15 Pulse Ox 95 01/15/25 10:15 O2 Del Method Room Air 01/15/25 10:15 BMI result Body Mass Index 34.4 General: AO X 3, no acute distress Resp: CTA bilateral, no accessory muscles used CVS: S1,S2,RRR GI: soft, non tender, non distended Neuro: motor grossly intact, alert Psych: appropriate affect, appropriate insight Objective Data Active Medications Acetaminophen (Acetaminophen 325 Mg Tablet) 650 mg PO Q6H PRN PRN Reason: Pain, Mild 1-3,fever,headache Albuterol Sulfate (Albuterol Sulfate 90 Mcg 8 Gm Inhaler) 2 puff INHALE Q4H PRN PRN Reason: Muscle Spasm Aspirin (Aspirin Enteric Coated 81 Mg Tablet.Dr) 81 mg PO DAILY [facility] Atorvastatin Calcium (Atorvastatin Calcium 20 Mg Tablet) 20 mg PO DAILY [facility] Benzonatate (Benzonatate 100 Mg Capsule) 100 mg PO TID PRN PRN Reason: Cough Bupropion HCl (Bupropion Hcl Xl 300 Mg Tab.Er.24h) 300 mg PO DAILY [facility] Calcium Carbonate (Calcium Carbonate 750 Mg Tab.Chew) 750 mg PO Q4H PRN PRN Reason: Heartburn Ceftriaxone Sodium (Ceftriaxone Sodium 1 Gm Vial) 1 gm IVPUSH Q24H [facility] Cyanocobalamin (Cyanocobalamin (Vitamin B-12) 1,000 Mcg Tablet) 1,000 mcg PO DAILY [facility] Dextrose (Dextrose 50 % 25 Gm/50 Ml Syringe) 25 gm IVPUSH Q15M PRN; Protocol PRN Reason: per Hypoglycemia Standing Ord. Enoxaparin Sodium (Enoxaparin Sodium 40 Mg/0.4 Ml Syringe) 40 mg SUBCUT Q24H [facility] Last Admin: 01/15/25 09:24 Dose: Not Given Documented By: TALON Non-Admin Reason: Physician Held Med Finasteride (Finasteride 5 Mg Tablet) 5 mg PO DAILY [facility] Fluticasone/Vilanterol (Fluticasone/Vilanterol 200/25 Blst.W.Dev) 1 puff INHALE RDAILY [facility] Glucose (Glucose Gel 15 Gm Gel..Gram.) 15 gm PO Q15M PRN; Protocol PRN Reason: per Hypoglycemia Standing Ord. Hydromorphone HCl (Hydromorphone Hcl 0.5 Mg/0.5 Ml Syringe) 0.5 mg IVPUSH Q4H PRN; Protocol PRN Reason: Pain, Severe (Pain Scale 7-10) Last Admin: 01/15/25 08:39 Dose: 0.5 mg Documented By: ELIS Lactated Ringer's (Lr) 1,000 mls @ 80 mls/hr IVCONT .[id number] [facility] Last Admin: 01/15/25 00:25 Dose: 80 mls/hr Documented By: MARYANA Insulin Human Lispro (Insulin Lispro 100 Unit/Ml 3 Ml Vial) 0 unit SUBCUT QIDACHS [facility]; Protocol Last Admin: 01/15/25 08:19 Dose: Not Given Documented By: ELIS Non-Admin Reason: poc 129 Magnesium Hydroxide (Milk Of Magnesia 30 Ml Oral.Susp) 30 ml PO DAILY PRN PRN Reason: Constipation Melatonin (Melatonin 3 Mg Tablet) 6 mg PO BEDTIME PRN PRN Reason: Insomnia Last Admin: 01/15/25 01:54 Dose: 6 mg Documented By: MARYANA Modafinil (Modafinil 100 Mg Tablet) 200 mg PO BID [facility] Oxycodone HCl (Oxycodone Hcl Er 40 Mg Tab.Er.12h) 80 mg PO Q8H [facility] Sodium Chloride (0.9 % Sodium Chloride Flush 3 Ml Syringe) 3 ml IVFLUSH QSHIFT [facility] Last Admin: 01/15/25 08:20 Dose: Not Given Documented By: ELIS Non-Admin Reason: IV Running Tamsulosin HCl (Tamsulosin Hcl 0.4 Mg Capsule) 0.4 mg PO DAILY [facility] Vitamin D (Cholecalciferol (Vitamin D3) 25 Mcg Tablet) 25 mcg PO DAILY [facility] Labs 01/15/25 03:51 01/15/25 03:51 Labs: Laboratory Results - last 24 hr 01/14/25 01/14/25 01/14/25 19:13 22:06 23:14 MCV 93.7 MCH 31.3 MCHC 33.4 RDW 13.6 Plt Count 169 MPV 10.6 Immature Gran % (Auto) 0.7 H Neut % (Auto) 78.4 H Lymph % (Auto) 12.1 L [place] % (Auto) 7.7 Eos % (Auto) 0.8 Baso % (Auto) 0.3 Lymph # (Auto) 2.3 [place] # (Auto) 1.4 H Eos # (Auto) 0.1 Baso # (Auto) 0.1 Abs Immat Gran (auto) 0.13 H Absolute Neuts (auto) 14.6 H Absolute Nucleated RBC 0.000 Nucleated RBC % (auto) 0.0 Anion Gap 14 Estim Creat Clear Calc 50.1 Estimated GFR 38 POC Glucose Random Glucose 138 H Lactic Acid 2.6 H* Lactic Acid F/U @ 2Hr 1.5 Calcium 8.9 Total Bilirubin 0.7 AST 25 ALT 26 Alkaline Phosphatase 107 Total Protein 6.5 Albumin 4.4 Lipase 12 Urine Color Yellow Urine Appearance Cloudy Urine pH 5.5 Ur Specific [place] >= 1.030 H Urine Protein Negative Urine Glucose (UA) Negative Urine Ketones Negative Urine Blood Large (3+) H Urine Nitrite Negative Ur Leukocyte Esterase Trace H Urine RBC 11-20 H Urine WBC 6-10 Ur Squamous Epith Cells 0-2 Urine Bacteria None Seen Hyaline Casts 3-5 01/15/25 01/15/25 03:51 08:04 MCV 92.3 MCH 31.3 MCHC 33.9 RDW 13.6 Plt Count 156 L MPV 11.5 Immature Gran % (Auto) 0.7 H Neut % (Auto) 80.0 H Lymph % (Auto) 11.1 L [place] % (Auto) 7.5 Eos % (Auto) 0.4 Baso % (Auto) 0.3 Lymph # (Auto) 1.8 [place] # (Auto) 1.2 Eos # (Auto) 0.1 Baso # (Auto) 0.1 Abs Immat Gran (auto) 0.12 H Absolute Neuts (auto) 13.2 H Absolute Nucleated RBC 0.000 Nucleated RBC % (auto) 0.0 Anion Gap 15 Estim Creat Clear Calc 57.1 Estimated GFR 44 POC Glucose 129 H Random Glucose 137 H Lactic Acid Lactic Acid F/U @ 2Hr Calcium 8.2 L D Total Bilirubin AST ALT Alkaline Phosphatase Total Protein Albumin Lipase Urine Color Urine Appearance Urine pH Ur Specific [place] Urine Protein Urine Glucose (UA) Urine Ketones Urine Blood Urine Nitrite Ur Leukocyte Esterase Urine RBC Urine WBC Ur Squamous Epith Cells Urine Bacteria Hyaline Casts Assessment and Plan (1) RUDY (acute kidney injury): Status: Acute Plan 64M PMH HTN, HLD, COPD, SUNNY, seizure disorder, cervical radiculopathy, nicotine dependence; history of pancreatic surgery; history of spinal cord stimulator; presented to the hospital with a chief complaint of abdominal pain. found to have rudy and obstructing ureteral stone Acute kidney injury due to obstructing left ureteral complicated by urinary tract npo, ivf, rocephin, cultures, gu-cystoscopy flomax, monitor bmp sunny cpap copd stable dm insulin dvt prophylaxis - lovenox full code reason for continued hospitalization:cutlures Quality Stroke Does the patient have a stroke diagnosis?: No VTE Prior VTE?: No VTE Risk Level:: Medical - moderate - high VTE Device Contraindication: Treatment Not Indicated VTE Drug Contraindication: N/A - Med Ordered
--- NOTE | 2025-01-15 11:36 | PC.NURSE ---
Pt requesting pain medication, this RN looked for primary nurse, PRN already given, pt oxy not loaded in ED, pharmacy called and alerted this RN they would stock shortly.
[2025-01-15] MEDS: oxyCODONE HCl ER 40 MG TAB.ER.12H 80 MG PO ×2 (12:08→19:13)
--- NOTE | 2025-01-15 12:11 | PC.NURSE ---
Pt is calm and cooperative, A+OX4 and ambulatory. pt is awaiting short stay admission. Pt denie any chest pain or SOB. RR even and unlabored.
--- NOTE | 2025-01-15 13:29 | MHC.CM.PN ---
IMM 01/15/25, Pt. 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 For DME, he uses a cane and a chair lift to go up and down stairs. HCP is his , copy requested. He is able to arrange a ride home at [place], DCP: home, self care, CM to follow for DC needs.
[2025-01-15] MEDS: Albuterol Sulfate (0.083%) 2.5 MG/3 ML VIAL.NEB INHALE (14:18)
--- NOTE | 2025-01-15 14:45 | PC.NURSE ---
Pt arrived from ED 7 to SSS/Pre op Bed 3 via stretcher. Pt with no belongings on his person/stretcher. Confirmed with MARIBEL Ruth that pts took pts belongings home. Advised pt.
--- NOTE | 2025-01-15 15:46 | HO.ANESPROP2 ---
HPI - Anesthesia Eval Consult details Narrative: for cysto, left stent - ureteral stone PMFSH Active Problems Active Problems: All Active Problems Ureteral stone (Acute) Abdominal pain (Acute) Obstruction, uropathy (Acute) RUDY (acute kidney injury) (Acute) Elevated WBC count (Acute) Nicotine dependence, cigarettes, uncomplicated (Acute) Poor historian (Acute) Elevated liver enzymes (Acute) Cervical radiculopathy (Acute) Numbness in both hands (Acute) BPH associated with nocturia (Acute) Hypoventilation (Acute) Complex sleep apnea syndrome (Acute) Incomplete emptying of bladder due to benign prostatic hyperplasia (Acute) Urinary urgency (Acute) SUNNY on CPAP (Acute) Severe comorbid illness (Acute) Spinal cord stimulator dysfunction (Acute) CPAP (continuous positive airway pressure) dependence (Acute) HTN (hypertension) (Acute) Bronchitis (Acute) Asthma (Acute) Arthritis (Acute) Seizure disorder (Acute) COPD (chronic obstructive pulmonary disease) (Acute) Sleep apnea (Acute) Past Medical History Medical History Complex sleep apnea syndrome COPD (chronic obstructive pulmonary disease) Seizure disorder HTN (hypertension) Nicotine dependence, cigarettes, uncomplicated Cervical radiculopathy Numbness in both hands SUNNY on CPAP Umbilical hernia Pancreas anomaly, congenital Family History Family History Father Cardiac abnormality Mother No problems noted. Family history of problems with anesthesia: No Surgical History Surgical History History of colonoscopy History of tonsillectomy History of cholecystectomy History of liver biopsy History of pancreatic surgery History of elbow surgery S/P insertion of spinal cord stimulator History of Problems with Anesthesia: No Social History Social History Household Members: Spouse Alcohol intake: former Patient Tobacco Use Status: Current everyday Tobacco user Cigarette Packs Per Day: 0.5 Cigarettes Per Day: 10 Years Smoked: 50 years service: No Current occupational status: disabled Meds Allergies Allergy/AdvReac Type Severity Reaction Status Date / Time marijuana (cannabis) Allergy Severe Seizure Verified 01/14/25 18:32 (marijuana) varenicline (From Chantix) AdvReac Intermediate Nausea Verified 12/19/23 08:03 Active Medications: Current Medications Acetaminophen (Acetaminophen 325 Mg Tablet) 650 mg PO Q6H PRN PRN Reason: Pain, Mild 1-3,fever,headache Albuterol Sulfate (Albuterol Sulfate 90 Mcg 8 Gm Inhaler) 2 puff INHALE Q4H PRN PRN Reason: Muscle Spasm Aspirin (Aspirin Enteric Coated 81 Mg Tablet.Dr) 81 mg PO DAILY [facility] Atorvastatin Calcium (Atorvastatin Calcium 20 Mg Tablet) 20 mg PO DAILY [facility] Benzonatate (Benzonatate 100 Mg Capsule) 100 mg PO TID PRN PRN Reason: Cough Bupropion HCl (Bupropion Hcl Xl 300 Mg Tab.Er.24h) 300 mg PO DAILY [facility] Calcium Carbonate (Calcium Carbonate 750 Mg Tab.Chew) 750 mg PO Q4H PRN PRN Reason: Heartburn Ceftriaxone Sodium (Ceftriaxone Sodium 1 Gm Vial) 1 gm IVPUSH Q24H [facility] Cyanocobalamin (Cyanocobalamin (Vitamin B-12) 1,000 Mcg Tablet) 1,000 mcg PO DAILY [facility] Dextrose (Dextrose 50 % 25 Gm/50 Ml Syringe) 25 gm IVPUSH Q15M PRN; Protocol PRN Reason: per Hypoglycemia Standing Ord. Enoxaparin Sodium (Enoxaparin Sodium 40 Mg/0.4 Ml Syringe) 40 mg SUBCUT Q24H [facility] Last Admin: 01/15/25 09:24 Dose: Not Given Finasteride (Finasteride 5 Mg Tablet) 5 mg PO DAILY [facility] Fluticasone/Vilanterol (Fluticasone/Vilanterol 200/25 Blst.W.Dev) 1 puff INHALE RDAILY [facility] Glucose (Glucose Gel 15 Gm Gel..Gram.) 15 gm PO Q15M PRN; Protocol PRN Reason: per Hypoglycemia Standing Ord. Hydromorphone HCl (Hydromorphone Hcl 0.5 Mg/0.5 Ml Syringe) 0.5 mg IVPUSH Q4H PRN; Protocol PRN Reason: Pain, Severe (Pain Scale 7-10) Last Admin: 01/15/25 08:39 Dose: 0.5 mg Lactated Ringer's (Lr) 1,000 mls @ 80 mls/hr IVCONT .[id number] [facility] Last Admin: 01/15/25 11:27 Dose: 80 mls/hr Lactated Ringer's (Lr) 1,000 mls @ 80 mls/hr IVCONT .[id number] [facility] Last Admin: 01/15/25 14:29 Dose: 80 mls/hr Insulin Human Lispro (Insulin Lispro 100 Unit/Ml 3 Ml Vial) 0 unit SUBCUT QIDACHS [facility]; Protocol Last Admin: 01/15/25 12:05 Dose: Not Given Magnesium Hydroxide (Milk Of Magnesia 30 Ml Oral.Susp) 30 ml PO DAILY PRN PRN Reason: Constipation Melatonin (Melatonin 3 Mg Tablet) 6 mg PO BEDTIME PRN PRN Reason: Insomnia Last Admin: 01/15/25 01:54 Dose: 6 mg Modafinil (Modafinil 100 Mg Tablet) 200 mg PO BID [facility] Oxycodone HCl (Oxycodone Hcl Er 40 Mg Tab.Er.12h) 80 mg PO Q8H [facility] Last Admin: 01/15/25 12:08 Dose: 80 mg Sodium Chloride (0.9 % Sodium Chloride Flush 3 Ml Syringe) 3 ml IVFLUSH QSHIFT [facility] Last Admin: 01/15/25 08:20 Dose: Not Given Tamsulosin HCl (Tamsulosin Hcl 0.4 Mg Capsule) 0.4 mg PO DAILY [facility] Vitamin D (Cholecalciferol (Vitamin D3) 25 Mcg Tablet) 25 mcg PO DAILY [facility] Home Medications ?Medication ?Instructions ?Recorded ?Confirmed ?Last Taken ?Type aspirin 81 mg tablet,delayed 81 mg PO DAILY 09/02/20 01/15/25 01/14/25 History release simvastatin 40 mg tablet 40 mg PO BEDTIME 09/02/20 01/15/25 01/14/25 History oxycodone 80 mg tablet,crush 1 tab PO Q8H 04/06/21 01/15/25 01/14/25 History resistant,extended release 12 hr (OxyContin) blood sugar diagnostic (FreeStyle #10 ea 05/12/21 11/02/21 Unknown History Lite Strips) blood-glucose meter (FreeStyle #1 ea 05/12/21 11/02/21 Unknown History Lite Meter kit) lancets 28 gauge (FreeStyle #100 ea 05/12/21 11/02/21 Unknown History Lancets) albuterol sulfate 90 mcg/actuation 2 puff inhalation Q4H PRN muscle 01/15/25 01/15/25 Unknown History aerosol inhaler (Ventolin HFA) spasm budesonide-formoterol HFA 160 1 inh inhalation DAILY 01/15/25 01/15/25 01/14/25 History mcg-4.5 mcg/actuation aerosol inhaler (Symbicort) bupropion HCl 150 mg tablet,12 hr 150 mg PO BID 01/15/25 01/15/25 01/14/25 History sustained-release cholecalciferol (vitamin D3) 25 25 mcg PO DAILY 01/15/25 01/15/25 01/14/25 History mcg (1,000 unit) tablet cyanocobalamin (vitamin B-12) 1,000 mcg PO DAILY 01/15/25 01/15/25 01/14/25 History 1,000 mcg tablet finasteride 5 mg tablet 5 mg PO DAILY 01/15/25 01/15/25 01/14/25 History ibuprofen 800 mg tablet 800 mg PO Q8H 01/15/25 01/15/25 01/14/25 History lisinopril 10 mg tablet 10 mg PO DAILY 01/15/25 01/15/25 01/14/25 History metformin 500 mg tablet 500 mg PO BIDWM 01/15/25 01/15/25 01/14/25 History modafinil 200 mg tablet 200 mg PO BID 01/15/25 01/15/25 01/14/25 History tamsulosin 0.4 mg capsule 0.4 mg PO DAILY 01/15/25 01/15/25 01/14/25 History Exam Height,Weight and Vital Signs: Height 5 ft 10 in Weight 108.862 kg Last Vital Signs Temp 98.6 F 01/15/25 14:16 Pulse 67 01/15/25 14:16 Resp 18 01/15/25 14:16 BP 130/70 01/15/25 14:16 Pulse Ox 95 01/15/25 14:16 O2 Del Method Nasal Cannula 01/15/25 14:16 O2 Flow Rate 3 01/15/25 14:16 Pertinent Lab Results Pertinent Lab Results: Laboratory Tests 01/14/25 01/14/25 01/14/25 19:13 22:06 23:14 WBC 18.6 H RBC 4.60 Hgb 14.4 Hct 43.1 MCV 93.7 MCH 31.3 MCHC 33.4 RDW 13.6 Plt Count 169 MPV 10.6 Immature Gran % (Auto) 0.7 H Neut % (Auto) 78.4 H Lymph % (Auto) 12.1 L [place] % (Auto) 7.7 Eos % (Auto) 0.8 Baso % (Auto) 0.3 Lymph # (Auto) 2.3 [place] # (Auto) 1.4 H Eos # (Auto) 0.1 Baso # (Auto) 0.1 Abs Immat Gran (auto) 0.13 H Absolute Neuts (auto) 14.6 H Absolute Nucleated RBC 0.000 Nucleated RBC % (auto) 0.0 Sodium 141 Potassium 4.8 Chloride 104 Carbon Dioxide 28 Anion Gap 14 BUN 26 H Creatinine 1.79 H Estim Creat Clear Calc 50.1 Estimated GFR 38 POC Glucose Random Glucose 138 H Lactic Acid 2.6 H* Lactic Acid F/U @ 2Hr 1.5 Calcium 8.9 Total Bilirubin 0.7 AST 25 ALT 26 Alkaline Phosphatase 107 Total Protein 6.5 Albumin 4.4 Lipase 12 Urine Color Yellow Urine Appearance Cloudy Urine pH 5.5 Ur Specific [place] >= 1.030 H Urine Protein Negative Urine Glucose (UA) Negative Urine Ketones Negative Urine Blood Large (3+) H Urine Nitrite Negative Ur Leukocyte Esterase Trace H Urine RBC 11-20 H Urine WBC 6-10 Ur Squamous Epith Cells 0-2 Urine Bacteria None Seen Hyaline Casts 3-5 01/15/25 01/15/25 03:51 08:04 WBC 16.5 H RBC 4.41 L Hgb 13.8 L Hct 40.7 L MCV 92.3 MCH 31.3 MCHC 33.9 RDW 13.6 Plt Count 156 L MPV 11.5 Immature Gran % (Auto) 0.7 H Neut % (Auto) 80.0 H Lymph % (Auto) 11.1 L [place] % (Auto) 7.5 Eos % (Auto) 0.4 Baso % (Auto) 0.3 Lymph # (Auto) 1.8 [place] # (Auto) 1.2 Eos # (Auto) 0.1 Baso # (Auto) 0.1 Abs Immat Gran (auto) 0.12 H Absolute Neuts (auto) 13.2 H Absolute Nucleated RBC 0.000 Nucleated RBC % (auto) 0.0 Sodium 138 Potassium 4.4 Chloride 105 Carbon Dioxide 22 Anion Gap 15 BUN 22 H Creatinine 1.57 H Estim Creat Clear Calc 57.1 Estimated GFR 44 POC Glucose 129 H Random Glucose 137 H Lactic Acid Lactic Acid F/U @ 2Hr Calcium 8.2 L D Total Bilirubin AST ALT Alkaline Phosphatase Total Protein Albumin Lipase Urine Color Urine Appearance Urine pH Ur Specific [place] Urine Protein Urine Glucose (UA) Urine Ketones Urine Blood Urine Nitrite Ur Leukocyte Esterase Urine RBC Urine WBC Ur Squamous Epith Cells Urine Bacteria Hyaline Casts Airway Mallampati Class: II TM Dist: <=3cm Neck ROM: Full Denture: Upper and Lower Heart: ok Lungs: ok. severe SUNNY. Assessment and Plan Assessment Anesthesia Assessment: Anesthesia Plan Discussed and Chart Reviewed Final Anesthetic Review Family History of Problems with Anesthesia: No History of Problems with Anesthesia: No NPO: Yes ASA Class: III and IV Final Preanesthetic Review: No Changes in Pt Med Stat, Meds/Allgs Chart Reviewed, Consent Obtained/Reviewed and Anes Risks/Benef Reviewed Patient Risk: Intermediate Procedure Risk: Low Anesthetic Plan Anesthetic Plan: GA and Agree w/ Assess. and Plan Disposition: Standard PACU
--- NOTE | 2025-01-15 17:10 | P.OP_ITS ---
Operative Note Operative Note Date of Service: 01/15/25 Narrative: PreOperative Diagnosis:?? Left ureteral stone, left hydronephrosis Post Operative Diagnosis:?? ?Left impacted ureteral stone, left hydronephrosis Procedure: Cystoscopy, left retrograde, left ureteroscopy, left ureteral stent insertion 6 [place] by 22-32 cm Surgeon:?Dr Vicky Johnson Anesthesia:? General Procedure: After informed consent was verified the patient was brought to the operating placed on the OR table in supine position.? General Anesthesia was administered per protocol.? The patient was placed in lithotomy position, prepped and draped in the usual sterile fashion.? Safety pause time-out and side of surgery confirmed.? Antibiotics confirmed. A 22 Citizen [place] cystoscope was inserted transurethrally, the bulbous urethra was within normal limits. The prostatic urethra was nonobstructive. The bladder was visualized.? Both ureteric orifices were in normal position. The left ureteric orifice was cannulated? a retrograde examination was performed, there was narrowing and a filling defect at the distal ureter with proximal dilatation. I was unable to pass the guidewire beyond the stone. The cystoscope was removed and a ureteroscope was placed with a guidewire which was passed into the left ureteral orifice the stone is visualized as with andria pulation I was able to get the guidewire passed the stone which was impacted. The ureteroscope was removed and a cystoscope was passed over the guidewire. A 6 fr by 22-32 cm ureteral stent was passed over the guide wire under fluoroscopic guidance. The guide wire was removed. The bladder was emptied.? The rigid cystoscope was removed. ? The patient tolerated the procedure well and was brought to the recovery room in stable condition. Complications: None EBL: minimal (<5 mL) Drains: Ureteral stent as dictated above
[2025-01-15 17:35] LABS: Glucose, Whole Blood 148 mg/dL (60-115)
[2025-01-15] MEDS: 0.9 % Sodium Chloride Flush 3 ML SYRINGE IVFLUSH ×2 (18:08→21:02)
[2025-01-15 20:28] LABS: Glucose, Whole Blood 243 mg/dL (60-115)
[2025-01-16] VITALS (8 sets, daily range): BP systolic 105–141; BP diastolic 52–85; PULSE 63–77; RESP 18–20; TEMP 36.1–37.2; O2SAT 90–95
[2025-01-16] MEDS: Lactated Ringers 1,000 ML 80 ML IVCONT (00:02)
[2025-01-16] MEDS: oxyCODONE HCl ER 40 MG TAB.ER.12H 80 MG PO ×3 (02:21→19:29)
[2025-01-16 07:05] LABS: Glucose, Whole Blood 144 mg/dL (60-115)
[2025-01-16 07:11] LABS: Anion Gap 11 (12-20); Blood Urea Nitrogen 19 mg/dL (9-16); Calcium 8.3 mg/dL (8.4-10.2); Carbon Dioxide 28 mmol/L (22-29); Chloride 103 mmol/L (96-108); Creatinine Clr Calc Pharmacy 68.2; Estimated Glomerular Filt Rate 55; Magnesium 2.2 mg/dL (1.6-2.6); Potassium 4.8 mmol/L (3.3-5.1); Sodium 137 mmol/L (135-145)
[2025-01-16 07:20] LABS: Hematocrit 40.6 % (42.0-52.0); Hemoglobin 13.3 g/dl (14.0-18.0); Mean Corpuscular HGB Conc 32.8 g/dl (31.0-36.0); Mean Corpuscular Hemoglobin 31.1 pg (27.0-33.0); Mean Corpuscular Volume 95.1 fL (80.0-98.0); NRBC Abs Auto 0.000 X10*3/uL (0.0-0.012); NRBC Pct Auto 0.0 /100WBC (0.0-0.2); Platelet Count 151 X10*3/uL (160-400); Red Blood Count 4.27 X10*6/uL (4.60-5.80); White Blood Count 15.0 X10*3/uL (4.8-10.8)
--- NOTE | 2025-01-16 08:21 | PC.NURSE ---
consulted MD [place]. ringers ordered @80, also 2 orders for LR. stated surgery should have halted fluids. Md hancock will dc LR orders
--- NOTE | 2025-01-16 08:40 | HO.POSTANES ---
Post Anesthesia Evaluation Post Anesthesia Evaluation Date of Service: 01/16/25 Vital Signs: Vital Signs Temp Pulse Resp BP Pulse Ox O2 Del Method O2 Flow Rate 01/16/25 07:07 98.9 F 76 20 130/73 92 Nasal Cannula 3 01/16/25 03:29 98.9 F 77 18 132/69 94 Nasal Cannula 3 01/15/25 23:17 97.9 F 71 18 116/66 94 Nasal Cannula 3 Anesthesia: General Mental Status: Awake Pain Control: Satisfactory Nausea/Vomiting: None Hydration: Adequate Anesthesia-Related Issues: No Anes. Related Issues
[2025-01-16] MEDS: Aspirin Enteric Coated 81 MG TABLET.DR PO (08:47)
[2025-01-16] MEDS: buPROPion HCl XL 300 MG TAB.ER.24H PO (08:47)
[2025-01-16] MEDS: 0.9 % Sodium Chloride Flush 3 ML SYRINGE IVFLUSH ×3 (08:48→22:45)
--- NOTE | 2025-01-16 09:25 | P.PNIM_ITS ---
Subjective Subjective Date of Service: 01/16/25 Interval History: flank pain iprmoved Physical Exam 2 Vital Signs: Vital Signs: Last Vital Signs Temp 98.9 F 01/16/25 07:07 Pulse 76 01/16/25 07:07 Resp 20 01/16/25 07:07 BP 130/73 01/16/25 07:07 Pulse Ox 92 01/16/25 07:07 O2 Del Method Nasal Cannula 01/16/25 07:07 O2 Flow Rate 3 01/16/25 07:07 BMI result Body Mass Index 33.6 General: AO X 3, no acute distress Resp: CTA bilateral, no accessory muscles used CVS: S1,S2,RRR GI: soft, non tender, non distended Neuro: motor grossly intact, alert Psych: appropriate affect, appropriate insight Objective Data Active Medications Acetaminophen (Acetaminophen 325 Mg Tablet) 650 mg PO Q6H PRN PRN Reason: Pain, Mild 1-3,fever,headache Albuterol Sulfate (Albuterol Sulfate 90 Mcg 8 Gm Inhaler) 2 puff INHALE Q4H PRN PRN Reason: Muscle Spasm Aspirin (Aspirin Enteric Coated 81 Mg Tablet.Dr) 81 mg PO DAILY [facility] Last Admin: 01/16/25 08:47 Dose: 81 mg Documented By: VIANNEY Atorvastatin Calcium (Atorvastatin Calcium 20 Mg Tablet) 20 mg PO DAILY [facility] Last Admin: 01/16/25 08:47 Dose: 20 mg Documented By: VIANNEY Benzonatate (Benzonatate 100 Mg Capsule) 100 mg PO TID PRN PRN Reason: Cough Bupropion HCl (Bupropion Hcl Xl 300 Mg Tab.Er.24h) 300 mg PO DAILY [facility] Last Admin: 01/16/25 08:47 Dose: 300 mg Documented By: VIANNEY Calcium Carbonate (Calcium Carbonate 750 Mg Tab.Chew) 750 mg PO Q4H PRN PRN Reason: Heartburn Ceftriaxone Sodium (Ceftriaxone Sodium 1 Gm Vial) 1 gm IVPUSH Q24H [facility] Last Admin: 01/15/25 23:32 Dose: 1 gm Documented By: JOSE RAFAEL Cyanocobalamin (Cyanocobalamin (Vitamin B-12) 1,000 Mcg Tablet) 1,000 mcg PO DAILY [facility] Last Admin: 01/16/25 08:47 Dose: 1,000 mcg Documented By: VIANNEY Dextrose (Dextrose 50 % 25 Gm/50 Ml Syringe) 25 gm IVPUSH Q15M PRN; Protocol PRN Reason: per Hypoglycemia Standing Ord. Enoxaparin Sodium (Enoxaparin Sodium 40 Mg/0.4 Ml Syringe) 40 mg SUBCUT Q24H [facility] Last Admin: 01/16/25 08:47 Dose: 40 mg Documented By: VIANNEY Finasteride (Finasteride 5 Mg Tablet) 5 mg PO DAILY [facility] Last Admin: 01/16/25 08:47 Dose: 5 mg Documented By: VIANNEY Fluticasone/Vilanterol (Fluticasone/Vilanterol 200/25 Blst.W.Dev) 1 puff INHALE RDAILY [facility] Last Admin: 01/16/25 09:17 Dose: Not Given Documented By: BETSY Non-Admin Reason: Med Not Available Glucose (Glucose Gel 15 Gm Gel..Gram.) 15 gm PO Q15M PRN; Protocol PRN Reason: per Hypoglycemia Standing Ord. Hydromorphone HCl (Hydromorphone Hcl 0.5 Mg/0.5 Ml Syringe) 0.5 mg IVPUSH Q4H PRN; Protocol PRN Reason: Pain, Severe (Pain Scale 7-10) Last Admin: 01/15/25 08:39 Dose: 0.5 mg Documented By: ELIS Lactated Ringer's (Lr) 1,000 mls @ 80 mls/hr IVCONT .[id number] [facility] Last Admin: 01/16/25 00:02 Dose: 80 mls/hr Documented By: JOSE RAFAEL Comments: No previously administered bag found. Unknown infusion amount. Lactated Ringer's (Lr) 1,000 mls @ 80 mls/hr IVCONT .[id number] [facility] Last Infusion: 01/16/25 08:20 Dose: Infused Documented By: VIANNEY Insulin Human Lispro (Insulin Lispro 100 Unit/Ml 3 Ml Vial) 0 unit SUBCUT QIDACHS [facility]; Protocol Last Admin: 01/16/25 08:48 Dose: Not Given Documented By: VIANNEY Non-Admin Reason: No Insulin Coverage Magnesium Hydroxide (Milk Of Magnesia 30 Ml Oral.Susp) 30 ml PO DAILY PRN PRN Reason: Constipation Melatonin (Melatonin 3 Mg Tablet) 6 mg PO BEDTIME PRN PRN Reason: Insomnia Last Admin: 01/15/25 01:54 Dose: 6 mg Documented By: MARYANA Modafinil (Modafinil 100 Mg Tablet) 200 mg PO BID [facility] Last Admin: 01/16/25 08:47 Dose: 200 mg Documented By: VIANNEY Oxycodone HCl (Oxycodone Hcl Er 40 Mg Tab.Er.12h) 80 mg PO Q8H [facility] Last Admin: 01/16/25 02:21 Dose: 80 mg Documented By: JOSE RAFAEL Oxycodone HCl (Oxycodone Hcl Immed Release 5 Mg Tablet) 5 mg PO ONCE PRN PRN Reason: Pain, Moderate(Pain Scale 4-6) Sodium Chloride (0.9 % Sodium Chloride Flush 3 Ml Syringe) 3 ml IVFLUSH QSHIFT [facility] Last Admin: 01/16/25 08:48 Dose: 3 ml Documented By: VIANNEY Tamsulosin HCl (Tamsulosin Hcl 0.4 Mg Capsule) 0.4 mg PO DAILY [facility] Last Admin: 01/16/25 08:47 Dose: 0.4 mg Documented By: VIANNEY Vitamin D (Cholecalciferol (Vitamin D3) 25 Mcg Tablet) 25 mcg PO DAILY [facility] Last Admin: 01/16/25 08:47 Dose: 25 mcg Documented By: VIANNEY Labs 01/16/25 06:25 01/16/25 06:25 Labs: Laboratory Results - last 24 hr 01/15/25 01/15/25 01/16/25 17:31 20:21 06:25 MCV 95.1 MCH 31.1 MCHC 32.8 RDW 13.6 Plt Count 151 L MPV 11.2 Absolute Nucleated RBC 0.000 Nucleated RBC % (auto) 0.0 Anion Gap 11 L Estim Creat Clear Calc 68.2 Estimated GFR 55 POC Glucose 148 H 243 H Random Glucose 138 H Calcium 8.3 L Magnesium 2.2 01/16/25 06:54 MCV MCH MCHC RDW Plt Count MPV Absolute Nucleated RBC Nucleated RBC % (auto) Anion Gap Estim Creat Clear Calc Estimated GFR POC Glucose 144 H Random Glucose Calcium Magnesium Microbiology Microbiology Results: Microbiology 01/14/25 23:03 Blood Culture - Preliminary Blood - Venous No growth after 24 hours. 07/01/25 23:07 Blood Culture - Preliminary Blood - Venous No growth after 24 hours. Assessment and Plan (1) RUDY (acute kidney injury): Status: Acute Plan 64M PMH HTN, HLD, COPD, SUNNY, seizure disorder, cervical radiculopathy, nicotine dependence; history of pancreatic surgery; history of spinal cord stimulator; presented to the hospital with a chief complaint of abdominal pain. found to have rudy and obstructing ureteral stone Acute kidney injury due to obstructing left ureteral complicated by urinary tract continue rocephin s/p cysto and stent 01/15/25 follow up cultures flomax, monitor bmp sunny cpap copd stable dm insulin dvt prophylaxis - lovenox full code reason for continued hospitalization:cutlures Quality Stroke Does the patient have a stroke diagnosis?: No VTE Prior VTE?: No VTE Risk Level:: Medical - moderate - high VTE Device Contraindication: Treatment Not Indicated VTE Drug Contraindication: N/A - Med Ordered
[2025-01-16 11:13] LABS: Glucose, Whole Blood 222 mg/dL (60-115)
[2025-01-16 16:06] LABS: Glucose, Whole Blood 105 mg/dL (60-115)
[2025-01-16 21:05] LABS: Glucose, Whole Blood 210 mg/dL (60-115)
[2025-01-17 03:12] VITALS: BP 112/53; PULSE 65; RESP 18; TEMP 36.4; O2SAT 95
[2025-01-17] MEDS: oxyCODONE HCl ER 40 MG TAB.ER.12H 80 MG PO ×2 (03:34→11:57)
[2025-01-17 07:00] VITALS: BP 130/74; PULSE 66; RESP 20; TEMP 37; O2SAT 95
[2025-01-17 07:02] LABS: Glucose, Whole Blood 146 mg/dL (60-115)
[2025-01-17 07:26] LABS: Hematocrit 37.9 % (42.0-52.0); Hemoglobin 12.3 g/dl (14.0-18.0); Mean Corpuscular HGB Conc 32.5 g/dl (31.0-36.0); Mean Corpuscular Hemoglobin 30.9 pg (27.0-33.0); Mean Corpuscular Volume 95.2 fL (80.0-98.0); NRBC Abs Auto 0.000 X10*3/uL (0.0-0.012); NRBC Pct Auto 0.0 /100WBC (0.0-0.2); Platelet Count 155 X10*3/uL (160-400); Red Blood Count 3.98 X10*6/uL (4.60-5.80); White Blood Count 13.0 X10*3/uL (4.8-10.8)
[2025-01-17 07:46] LABS: Anion Gap 14 (12-20); Blood Urea Nitrogen 20 mg/dL (9-16); Calcium 8.6 mg/dL (8.4-10.2); Carbon Dioxide 29 mmol/L (22-29); Chloride 102 mmol/L (96-108); Creatinine Clr Calc Pharmacy 75.8; Estimated Glomerular Filt Rate > 60; Potassium 4.1 mmol/L (3.3-5.1); Sodium 141 mmol/L (135-145)
[2025-01-17] MEDS: 0.9 % Sodium Chloride Flush 3 ML SYRINGE IVFLUSH (08:46)
[2025-01-17] MEDS: buPROPion HCl XL 300 MG TAB.ER.24H PO (08:47)
[2025-01-17] MEDS: Aspirin Enteric Coated 81 MG TABLET.DR PO (08:47)
--- NOTE | 2025-01-17 10:10 | P.PNIM_ITS ---
Subjective Subjective Date of Service: 01/17/25 Interval History: wants to go home, but needing 3L o2 Physical Exam 2 Vital Signs: Vital Signs: Last Vital Signs Temp 98.6 F 01/17/25 07:00 Pulse 66 01/17/25 07:00 Resp 20 01/17/25 07:00 BP 130/74 01/17/25 07:00 Pulse Ox 95 01/17/25 07:00 O2 Del Method Nasal Cannula 01/17/25 07:00 O2 Flow Rate 3 01/17/25 07:00 Oxygen Flow Rate 3 01/16/25 15:59 BMI result Body Mass Index 33.6 General: AO X 3, no acute distress Resp: CTA bilateral, no accessory muscles used CVS: S1,S2,RRR GI: soft, non tender, distended Neuro: motor grossly intact, alert Psych: appropriate affect, appropriate insight Objective Data Active Medications Acetaminophen (Acetaminophen 325 Mg Tablet) 650 mg PO Q6H PRN PRN Reason: Pain, Mild 1-3,fever,headache Last Admin: 01/16/25 16:51 Dose: 650 mg Documented By: VAMSHI Albuterol Sulfate (Albuterol Sulfate 90 Mcg 8 Gm Inhaler) 2 puff INHALE Q4H PRN PRN Reason: Muscle Spasm Aspirin (Aspirin Enteric Coated 81 Mg Tablet.Dr) 81 mg PO DAILY [facility] Last Admin: 01/17/25 08:47 Dose: 81 mg Documented By: DIGNA Atorvastatin Calcium (Atorvastatin Calcium 20 Mg Tablet) 20 mg PO DAILY [facility] Last Admin: 01/17/25 08:47 Dose: 20 mg Documented By: DIGNA Benzonatate (Benzonatate 100 Mg Capsule) 100 mg PO TID PRN PRN Reason: Cough Bupropion HCl (Bupropion Hcl Xl 300 Mg Tab.Er.24h) 300 mg PO DAILY [facility] Last Admin: 01/17/25 08:47 Dose: 300 mg Documented By: DIGNA Calcium Carbonate (Calcium Carbonate 750 Mg Tab.Chew) 750 mg PO Q4H PRN PRN Reason: Heartburn Ceftriaxone Sodium (Ceftriaxone Sodium 1 Gm Vial) 1 gm IVPUSH Q24H [facility] Last Admin: 01/16/25 22:45 Dose: 1 gm Documented By: MARTI Cyanocobalamin (Cyanocobalamin (Vitamin B-12) 1,000 Mcg Tablet) 1,000 mcg PO DAILY [facility] Last Admin: 01/17/25 08:47 Dose: 1,000 mcg Documented By: DIGNA Dextrose (Dextrose 50 % 25 Gm/50 Ml Syringe) 25 gm IVPUSH Q15M PRN; Protocol PRN Reason: per Hypoglycemia Standing Ord. Enoxaparin Sodium (Enoxaparin Sodium 40 Mg/0.4 Ml Syringe) 40 mg SUBCUT Q24H [facility] Last Admin: 01/17/25 08:46 Dose: 40 mg Documented By: DIGNA Finasteride (Finasteride 5 Mg Tablet) 5 mg PO DAILY [facility] Last Admin: 01/17/25 08:47 Dose: 5 mg Documented By: DIGNA Fluticasone/Vilanterol (Fluticasone/Vilanterol 200/25 Blst.W.Dev) 1 puff INHALE RDAILY [facility] Last Admin: 01/16/25 09:17 Dose: Not Given Documented By: BETSY Non-Admin Reason: Med Not Available Glucose (Glucose Gel 15 Gm Gel..Gram.) 15 gm PO Q15M PRN; Protocol PRN Reason: per Hypoglycemia Standing Ord. Hydromorphone HCl (Hydromorphone Hcl 0.5 Mg/0.5 Ml Syringe) 0.5 mg IVPUSH Q4H PRN; Protocol PRN Reason: Pain, Severe (Pain Scale 7-10) Last Admin: 01/15/25 08:39 Dose: 0.5 mg Documented By: ELIS Insulin Human Lispro (Insulin Lispro 100 Unit/Ml 3 Ml Vial) 0 unit SUBCUT QIDACHS [facility]; Protocol Last Admin: 01/17/25 07:30 Dose: Not Given Documented By: DIGNA Non-Admin Reason: No Insulin Coverage Magnesium Hydroxide (Milk Of Magnesia 30 Ml Oral.Susp) 30 ml PO DAILY PRN PRN Reason: Constipation Melatonin (Melatonin 3 Mg Tablet) 6 mg PO BEDTIME PRN PRN Reason: Insomnia Last Admin: 01/15/25 01:54 Dose: 6 mg Documented By: MARYANA Modafinil (Modafinil 100 Mg Tablet) 200 mg PO BID [facility] Last Admin: 01/17/25 08:46 Dose: 200 mg Documented By: DIGNA Oxycodone HCl (Oxycodone Hcl Er 40 Mg Tab.Er.12h) 80 mg PO Q8H [facility] Last Admin: 01/17/25 03:34 Dose: 80 mg Documented By: DISHA Oxycodone HCl (Oxycodone Hcl Immed Release 5 Mg Tablet) 5 mg PO ONCE PRN PRN Reason: Pain, Moderate(Pain Scale 4-6) Sodium Chloride (0.9 % Sodium Chloride Flush 3 Ml Syringe) 3 ml IVFLUSH QSHIFT [facility] Last Admin: 01/17/25 08:46 Dose: 3 ml Documented By: DIGNA Tamsulosin HCl (Tamsulosin Hcl 0.4 Mg Capsule) 0.4 mg PO DAILY [facility] Last Admin: 01/17/25 08:47 Dose: 0.4 mg Documented By: DIGNA Vitamin D (Cholecalciferol (Vitamin D3) 25 Mcg Tablet) 25 mcg PO DAILY [facility] Last Admin: 01/17/25 08:47 Dose: 25 mcg Documented By: DIGNA Labs 01/17/25 06:13 01/17/25 06:13 Labs: Laboratory Results - last 24 hr 01/16/25 01/16/25 01/16/25 11:04 16:02 20:43 MCV MCH MCHC RDW Plt Count MPV Absolute Nucleated RBC Nucleated RBC % (auto) Anion Gap Estim Creat Clear Calc Estimated GFR POC Glucose 222 H 105 210 H Random Glucose Calcium 01/17/25 01/17/25 06:13 06:52 MCV 95.2 MCH 30.9 MCHC 32.5 RDW 13.4 Plt Count 155 L MPV 11.3 Absolute Nucleated RBC 0.000 Nucleated RBC % (auto) 0.0 Anion Gap 14 Estim Creat Clear Calc 75.8 Estimated GFR > 60 POC Glucose 146 H Random Glucose 109 Calcium 8.6 Microbiology Microbiology Results: Microbiology 01/14/25 23:03 Blood Culture - Preliminary Blood - Venous No growth after 48 hours. 01/14/25 23:07 Blood Culture - Preliminary Blood - Venous No growth after 48 hours. 01/14/25 Unknown Urine Culture - Final Urine clean catch - Clean Catch Midstream No growth. Assessment and Plan (1) RUDY (acute kidney injury): Status: Acute Plan 64M PMH HTN, HLD, COPD, SUNNY, seizure disorder, cervical radiculopathy, nicotine dependence; history of pancreatic surgery; history of spinal cord stimulator; presented to the hospital with a chief complaint of abdominal pain. found to have rudy and obstructing ureteral stone Acute kidney injury due to obstructing left ureteral complicated by urinary tract continue rocephin, cutlure negative s/p cysto and stent 01/15/25 flomax, monitor bmp rudy resolved acute hypoxic respiratory failure likely poor inspiratory effort post cysto, underlying copd, wean o2, goal sat 90% sunny cpap copd stable dm insulin dvt prophylaxis - lovenox full code reason for continued hospitalization: hypoxia Quality Stroke Does the patient have a stroke diagnosis?: No VTE Prior VTE?: No VTE Risk Level:: Medical - moderate - high VTE Device Contraindication: Treatment Not Indicated VTE Drug Contraindication: N/A - Med Ordered
[2025-01-17] MEDS: Milk of Magnesia 30 ML ORAL.SUSP PO (10:27)
[2025-01-17 11:00] LABS: Glucose, Whole Blood 204 mg/dL (60-115)
[2025-01-17 11:01] VITALS: BP 135/60; PULSE 65; RESP 20; TEMP 36.9; O2SAT 95
[2025-01-17] MEDS: Fluticasone/Vilanterol 200/25 BLST.W.DEV 1 PUFF INHALE (11:23)
[2025-01-17 11:26] VITALS: PULSE 65; RESP 18
--- NOTE | 2025-01-17 14:15 | PM.DS ---
DS: Providers Provider Date of Service: 01/17/25 Date of admission: 01/14/25 23:53 Date of discharge: 01/17/25 Primary care physician: Ciara Celaya MD Consults: 01/14/25 23:53 Consult to Urology Routine Consulting Provider: [facility] Reason for consultation: obstructing stone DS: Diagnosis Discharge Diagnosis (1) RUDY (acute kidney injury): Status: Acute DS: Summary Hospital Course Hospital Course: from initial hpi: 64-year-old male with a past medical history of HTN, HLD, COPD, SUNNY, seizure disorder, cervical radiculopathy, nicotine dependence; history of pancreatic surgery; history of spinal cord stimulator; presented to the hospital with a chief complaint of abdominal pain. Patient reports that for the past 4 days he has been having lower abdominal pain. Associated nausea. Denies any vomiting. Denies any urinary symptoms. Denies any blood in the urine. Patient reported having subjective chills. Patient denies any chest pain or palpitations. Review of all other systems is negative except mentioned above ER course: Per ER team, patient noted to have diffuse mild abdominal tenderness; CT abdomen pelvis showed findings concerning for left ureteral stone with obstruction; urinalysis slightly positive-given ceftriaxone. Urology was notifie hospital course: Patient was admitted for acute kidney injury due to obstructing left ureteral stone complicated by urinary tract infection. Was treated with ceftriaxone, culture was negative. Underwent cystoscopy with stent placement on 01/15/2025, treated with Flomax, renal function returned to normal, we will follow up with Urology as outpatient and complete 5 more days of cefuroxime. For acute hypoxic respiratory failure likely due to poor inspiratory effort status post cystoscopy in a patient with underlying COPD. Patient was eventually weaned to room air. For obstructive sleep apnea was continued on CPAP. For diabetes was continued on insulin. Time Attestation Discharge Coordination Time (in mins): 34 Quality: Safe Use of Opioids Does Pt have an Active Cancer Diagnosis on the Problem List?: No Quality: Stroke Does the patient have a stroke diagnosis?: No Physical Exam Vital Signs: Vital Signs: Last Vital Signs Temp 98.4 F 01/17/25 11:01 Pulse 65 01/17/25 11:26 Resp 18 01/17/25 11:26 BP 135/60 01/17/25 11:01 Pulse Ox 95 01/17/25 11:01 O2 Del Method Room Air 01/17/25 11:01 O2 Flow Rate 3 01/17/25 07:00 Oxygen Flow Rate 3 01/16/25 15:59 BMI result Body Mass Index 33.6 General: AO X 3, no acute distress Resp: CTA bilateral, no accessory muscles used CVS: S1,S2,RRR GI: soft, non tender, distended Neuro: motor grossly intact, alert Psych: appropriate affect, appropriate insight DS: Data Data Completed and Pending Labs on day of discharge: Laboratory Results - last 24 hr 01/16/25 01/16/25 01/17/25 16:02 20:43 06:13 WBC 13.0 H RBC 3.98 L Hgb 12.3 L Hct 37.9 L MCV 95.2 MCH 30.9 MCHC 32.5 RDW 13.4 Plt Count 155 L MPV 11.3 Absolute Nucleated RBC 0.000 Nucleated RBC % (auto) 0.0 Sodium 141 Potassium 4.1 Chloride 102 Carbon Dioxide 29 Anion Gap 14 BUN 20 H Creatinine 1.17 Estim Creat Clear Calc 75.8 Estimated GFR > 60 POC Glucose 105 210 H Random Glucose 109 Calcium 8.6 01/17/25 01/17/25 06:52 10:52 WBC RBC Hgb Hct MCV MCH MCHC RDW Plt Count MPV Absolute Nucleated RBC Nucleated RBC % (auto) Sodium Potassium Chloride Carbon Dioxide Anion Gap BUN Creatinine Estim Creat Clear Calc Estimated GFR POC Glucose 146 H 204 H Random Glucose Calcium Preliminary micro results at discharge 01/14/25 23:03 Blood Culture - Preliminary Blood - Venous No growth after 48 hours. 01/14/25 23:07 Blood Culture - Preliminary Blood - Venous No growth after 48 hours. Discharge Plan Discharge Anticipated Discharge Date/Time: 01/17/25 14:13 Patient Disposition: Home, Self-Care Discharge Diagnosis: stone, rudy Referrals: Vicky Johnson MD [Physician, Urology] - 1 Week Ciara Garcia MD [Primary Care Provider, Internal Medicine] - 1 Week Discharge Medications: New cefuroxime axetil 500 mg tablet 500 mg PO BID Qty: 10 0RF Continued oxycodone [OxyContin] 80 mg tablet,oral only,ext.rel.12 hr 1 tab PO Q8H metformin 500 mg tablet 500 mg PO BIDWM bupropion HCl 150 mg tablet sustained-release 12 hr 150 mg PO BID cyanocobalamin (vitamin B-12) 1,000 mcg tablet 1,000 mcg PO DAILY modafinil 200 mg tablet 200 mg PO BID tamsulosin 0.4 mg capsule 0.4 mg PO DAILY lisinopril 10 mg tablet 10 mg PO DAILY finasteride 5 mg tablet 5 mg PO DAILY cholecalciferol (vitamin D3) 25 mcg (1,000 unit) tablet 25 mcg PO DAILY budesonide-formoterol [Symbicort] 160-4.5 mcg/actuation HFA aerosol inhaler 1 inh inhalation DAILY albuterol sulfate [Ventolin HFA] 90 mcg/actuation HFA aerosol inhaler 2 puff INHALATION Q4H PRN (Reason: muscle spasm) simvastatin 40 mg tablet 40 mg PO BEDTIME aspirin 81 mg tablet,delayed release (DR/EC) 81 mg PO DAILY (DME) FreeStyle Lite Strips Strip See Rx Instructions Not Applicable DAILY Qty: 10 Rx Instructions: As directed (DME) blood-glucose meter [FreeStyle Lite Meter] Kit See Rx Instructions .ROUTE .MEDSUPPLY Qty: 1 Rx Instructions: As directed (DME) lancets [FreeStyle Lancets] 28 gauge misc See Rx Instructions topical DAILY Qty: 100 Rx Instructions: As directed Discontinued ibuprofen 800 mg tablet 800 mg PO Q8H Discharge Orders: Discharge Order (Routine); Ordered 01/17/25 Ordered By: Geremias Wu Diet: Advance to usual diet Activity on Discharge: As tolerated Stand Alone Forms: Patient Portal Discharge page Print Language: Andorran Care Plan Goals: Recovery Health Concerns: Ureteral stone and urinary tract infection Plan of Treatment: Complete 5 more days of cefuroxime, follow up with Urology Assessment: See above
--- NOTE | 2025-01-17 14:40 | MHC.CM.PN ---
Pt has been medically cleared to [place], he will go home via private transport, plan is self care.
[2025-01-17 15:21] VITALS: BP 134/69; PULSE 81; RESP 20; TEMP 36.9; O2SAT 92
== END 2025-01-17 15:30 | disposition home or self-care (01) | DRG 661 ==
LOC: HO.ED 22:41 → HO.EDOVER 23:58 → HO.IMC 01-15 15:26
PROVIDERS: Emergency Medicine; Urology; Admitting Provider Hospitalist; Emergency Provider Emergency Medicine; PCP Internal Medicine; Visit Provider Internal Medicine
PROC: 0T778DZ Dilation of Left Ureter with Intraluminal Device, Via Natural or Artificial Opening Endoscopic (ICD-10-PCS; principal; 2025-01-15 15:30)
DX: N13.6 Pyonephrosis (principal); N17.9 Acute kidney failure, unspecified; F17.210 Nicotine dependence, cigarettes, uncomplicated; K59.00 Constipation, unspecified; G47.33 Obstructive sleep apnea (adult) (pediatric); E11.9 Type 2 diabetes mellitus without complications; J44.9 Chronic obstructive pulmonary disease, unspecified; Z71.6 Tobacco abuse counseling; Z79.82 Long term (current) use of aspirin; Z79.84 Long term (current) use of oral hypoglycemic drugs; Z79.899 Other long term (current) drug therapy
CPT/HCPCS: 36415; 71045; 74022; 74177; 80048; 80053; 81001; 82947; 83605; 83690; 83735; 85025; 85027; 87040; 87086; 94640; 94660; 99285; C1758; C1769; C2617; J0690; J0696; J1171; J1650; J2003; J2270; J2405; J2704; J3010; J7120; Q9967

== ENCOUNTER → 2025-01-14 18:55 | Outpatient (BNV) | payer MEDICARE, MEDICAID, SELFPAY | PROVIDERS: Emergency Provider Emergency Medicine; PCP Internal Medicine; Visit Provider Radiology Diagnostic Radiology | DX: N20.1 Calculus of ureter (principal); K56.41 Fecal impaction; R14.0 Abdominal distension (gaseous); R10.9 Unspecified abdominal pain | CPT/HCPCS: 74177 ==

== ENCOUNTER 2025-01-14 23:53 | Outpatient (BNV) | payer MEDICARE, MEDICAID, SELFPAY | END 2025-01-17 07:19 | PROVIDERS: Admitting Provider Hospitalist; Emergency Provider Emergency Medicine; PCP Internal Medicine; Visit Provider Radiology Diagnostic Radiology | DX: R09.02 Hypoxemia (principal) | CPT/HCPCS: 71045 ==

== ENCOUNTER → 2025-01-14 23:53 | Outpatient (BNV) | payer MEDICARE, MEDICAID, SELFPAY | PROVIDERS: Admitting Provider Hospitalist; Emergency Provider Emergency Medicine; PCP Internal Medicine; Visit Provider Internal Medicine | DX: N17.9 Acute kidney failure, unspecified (principal) | CPT/HCPCS: 99499 ==

== ENCOUNTER → 2025-01-14 23:53 | Outpatient (BNV) | payer MEDICARE, MEDICAID, SELFPAY | PROVIDERS: Admitting Provider Hospitalist; Emergency Provider Emergency Medicine; PCP Internal Medicine; Visit Provider Urology | DX: N17.9 Acute kidney failure, unspecified (principal); N20.1 Calculus of ureter; N13.9 Obstructive and reflux uropathy, unspecified; D72.829 Elevated white blood cell count, unspecified | CPT/HCPCS: 99223 ==

== ENCOUNTER 2025-01-24 17:45 | Outpatient (REF) | payer MEDICARE, OTHER, SELFPAY | END 2025-01-24 17:46 | disposition home or self-care (01) | LOC: HO.HHCLNP 17:45 | PROVIDERS: Visit Provider Internal Medicine | DX: R39.9 Unspecified symptoms and signs involving the genitourinary system (principal) | CPT/HCPCS: 87086 ==

== ENCOUNTER 2025-01-27 07:22 | Outpatient (AMB) | payer MEDICARE, MEDICAID, SELFPAY ==
--- NOTE | 2025-01-26 21:51 | MHC.OFFVIS ---
Intake Visit Reasons: Discuss procedure Allergies marijuana (cannabis) (marijuana) Allergy (Severe, Verified 01/14/25 18:32) Seizure varenicline (From Chantix) Adverse Reaction (Intermediate, Verified 12/19/23 08:03) Nausea Medication List - Last Reconciled 01/27/25 by Vicky Johnson MD albuterol sulfate 90 mcg/actuation (Ventolin HFA) 2 puffs inhalation Q4H PRN aspirin 81 mg PO DAILY blood sugar diagnostic (FreeStyle Lite Strips) As directed blood-glucose meter (FreeStyle Lite Meter kit) As directed budesonide-formoterol 160-4.5 mcg/actuation (Symbicort) 1 inh inhalation DAILY bupropion HCl SR 150 mg PO BID cefuroxime axetil 500 mg PO BID cholecalciferol (vitamin D3) 25 mcg PO DAILY cyanocobalamin (vitamin B-12) 1,000 mcg PO DAILY finasteride 5 mg PO DAILY lancets (FreeStyle Lancets) As directed lisinopril 10 mg PO DAILY metformin 500 mg PO BIDWM modafinil 200 mg PO BID oxybutynin chloride ER 5 mg PO BEDTIME oxycodone ER (OxyContin) 1 tab PO Q8H phenazopyridine (Pyridium) 100 mg PO Q8H PRN 6 doses simvastatin 40 mg PO BEDTIME tamsulosin 0.4 mg PO BEDTIME HPI Comments Details: s/p ureteroscopy left ureteral stent on 01/15/25 OR sched for 02/04/25 01/14/25--CTAP--9 mm obstructing calculus present at the distal left ureter, near the left ureterovesicular junction. There is mild left hydroureter with mild left hydronephrosis. 01/27/25 History of Present Illness - The patient is a 64-year-old male presenting with an obstructing left ureteral stone. - The patient underwent left ureteroscopy and ureteral stent insertion on January 15, 2025, for a 9 mm distal left ureteral stone. - The stone remains in the ureter, and the patient experiences urinary urgency and dysuria, likely exacerbated by the stent. - The patient has a history of Benign Prostatic Hyperplasia (BPH) and is on finasteride and tamsulosin. - The patient reports that urinary urgency has worsened over the past few months, with increased frequency and urgency. - The patient experiences burning during urination, which has decreased in intensity but persists twice daily. - The patient is scheduled for a procedure on February 04, 2025, to address the ureteral stone with a ureteroscope and laser. Results 01/14/25--CTAP--9 mm obstructing calculus present at the distal left ureter, near the left ureterovesicular junction. There is mild left hydroureter with mild left hydronephrosis. [facility] Medical History Complex sleep apnea syndrome COPD (chronic obstructive pulmonary disease) Seizure disorder HTN (hypertension) Nicotine dependence, cigarettes, uncomplicated Cervical radiculopathy Numbness in both hands SUNNY on CPAP Umbilical hernia Pancreas anomaly, congenital Surgical History History of colonoscopy History of tonsillectomy History of cholecystectomy History of liver biopsy History of pancreatic surgery History of elbow surgery S/P insertion of spinal cord stimulator Family History Father Cardiac abnormality Mother No problems noted. Social History Household Members: Spouse Housing: House Do you presently have visiting nurse or other home services: No Alcohol intake: former Patient Tobacco Use Status: Current everyday Tobacco user Tobacco use type: Cigarette Cigarette Packs Per Day: 0.5 Cigarettes Per Day: 10 Years Smoked: 50 years e-Cigarette/Vaping Use: Never Used Second Hand Smoke Exposure: Yes service: No Current occupational status: disabled Review of Systems Const All systems reviewed & are unremarkable except as noted in HPI and below Reports no additional complaints Eyes Reports no additional complaints ENT Reports no additional complaints Card Reports no additional complaints Resp Reports no additional complaints GI Reports no additional complaints Reports as per HPI Musc Reports no additional complaints Skin/Breast Reports system reviewed and no additional complaints, except as documented Neuro Reports no additional complaints Psych Reports no additional complaints Endo Reports no additional complaints Jelani/Lymph Reports no additional complaints Aller/Immun Reports no additional complaints Results Reviewed Results Reviewed: Date of Service: 01/14/25 CLINICAL HISTORY: severe distension, no BM x [address] abdomen and pelvis with contrast Comparison: US/NE/SR - US ABDOMEN COMP W ELASTOGRAPHY - 07/14/23 09:28 EST Findings: No consolidation or effusion. Emphysema identified within the bilateral lung bases. The gallbladder is surgically absent. The solid organs are within normal limits. No right hydronephrosis or right hydroureter. The right kidney enhances normally. 9 mm obstructing calculus present at the distal left ureter, near the left ureterovesicular junction, with mild upstream left hydroureter and mild left hydronephrosis. There is mildly delayed enhancement of the left kidney with disproportionate left perinephric fat stranding. No bowel obstruction, pneumoperitoneum, or pneumatosis. Pelvic contents unremarkable. Small, fat containing bilateral inguinal hernias are present. There is borderline bladder wall thickening. The bladder is underdistended. Normal appendix. No acute fracture visualized. Multilevel degenerative disc disease/vacuum disc phenomenon present at the thoracolumbar spine. IMPRESSION: 9 mm obstructing calculus present at the distal left ureter, near the left ureterovesicular junction. There is mild left hydroureter with mild left hydronephrosis. There is mildly delayed enhancement of the left kidney, consistent with obstructive uropathy. Borderline bladder wall thickening. This may be related to bladder underdistention or mild cystitis. May consider correlation with urinalysis results for further evaluation. Other findings as above Assessment & Plan Assessment & Plan (1) Left ureteral stone: Code(s): N20.1 - Calculus of ureter Category: Medical (2) Hydronephrosis, left: Code(s): N13.30 - Unspecified hydronephrosis Category: Medical (3) Ureteral stent present: Code(s): Z96.0 - Presence of urogenital implants Category: Medical Plan Plan - Schedule ureteroscopic procedure with laser lithotripsy on February 04, 2025, to address the obstructing ureteral stone. - Prescribe pyridium 100 mg for dysuria, to be taken every eight hours as needed. - Prescribe oxybutynin 5 mg at bedtime to manage bladder spasms. - Continue tamsulosin 0.4 mg at bedtime, and finasteride 5 mg daily for BPH management. - Send urine for culture to assess for possible infection. Medications: New oxybutynin chloride ER 5 mg PO BEDTIME 30 tabs 0RF bladder spasms finasteride 5 mg PO DAILY 90 tabs 3RF phenazopyridine (Pyridium) 100 mg PO Q8H PRN 30 tabs 0RF urinary burning 6 doses Changed From tamsulosin 0.4 mg PO DAILY To tamsulosin 0.4 mg PO BEDTIME 90 caps 3RF Patient Instructions: The patient had an opportunity to ask questions regarding treatment plan. The patient expressed understanding and agreement with the above treatment plan. The patient is aware they should contact our office by phone for worsening of their current condition or the appearance of new symptoms. Compliance is encouraged with any medications and followup testing that is ordered. It is a privilege to be allowed the opportunity to participate in the urologic care of your patient. If you have any questions or concerns regarding treatment for the above conditions please do not hesitate to contact me. The office telephone contact is [phone]. This note is constructed in part using voice recognition software. While every effort has been made to ensure accuracy strategic planning analyst errors may have been included. Yours sincerely, iVcky Johnson MD Scribe Plan - Not visible on output: Patient was informed and verbally consented to the use of an ambient scribe for clinic note documentation during this visit. Coding Level of Care Code Est Pt Level 4 (23422) Diagnoses Left ureteral stone N20.1 Hydronephrosis, left N13.30 Ureteral stent present Z96.0
--- OUTSIDE RECORDS SUMMARY | 2025-01-27 07:25 | XMS_ITS | Encounter Summary ---
Author Organization [employer] Address [address] [facility] 7[address] [place] [address] Care Team Providers Care Sales Engagement Executive Name Role Phone Ciara Garcia MD Primary Care Provide r Reason for Visit * Reason Comments Med Refill Encounter Details Date Type Department Care Team ([facility] st Contact Info) Description 02/26/2024 Refill [facility] [address] [place] [address] Ciara Garcia MD [address] [place] [address] Cervicalgia; Tobacco dependence syndrome; Uncomplicated asthma, unspecified [...] Care Team (Late st Contact Info) Description 02/11/2025 10:00 AM EDT Clinical Support [address] [address] Jasmina Coronado RN 03/06/2025 11:30 AM EDT Telemedicine [address] [address] Ciara Garcia MD [address] [place] [phone] documented as of this encounter Visit Diagnoses Diagnosis Cervicalgia Tobacco dependence syndrome Tobacco use disorder Uncomplicated asthma, unspecified asthma severity, unspecified whether persistent documented in this encounter Additional Health Concerns Assessment Noted Time PHQ-9 Depression Total Score: 0 12/29/19 23 11:51 AM EDT documented as of this encounter Care Teams Sales Engagement Executive Relationship Specialty Start Date End Date Ciara Garcia MD [address] [place] [address] PCP - General Family Medicine 06/04/19 documented as of this encounter
--- OUTSIDE RECORDS SUMMARY | 2025-01-27 07:26 | XMS_ITS | Patient Health Record ---
Author Organization [facility] Address [address] [place] [address] Care Team Providers Care Military Technology Specialist Name Role Phone Tanner Carrera [phone] Reason For Referral No Information Plan Of Treatment No Information
--- OUTSIDE RECORDS SUMMARY | 2025-01-27 07:26 | XMS_ITS | Clinical Summary ---
Author Organization [facility] Address [address] [place] [address] Phone Care Team Providers Care Full Decator Operator Name Role Phone Ciara Garcia MD [...] night Active cholecalciferol (VITAMIN D-3) 1.25 MG (24049 UT) tablet Take 50,000 Units by mouth [...] Medicaid [place] Care Teams Full Decator Operator Relationship Specialty Start Date End Date Ciara Garcia MD [address] [place] [phone] PCP - General Internal Medicine 02/03/21
--- OUTSIDE RECORDS SUMMARY | 2025-01-27 07:26 | XMS_ITS | Data Portability ---
Author Organization [place] - [facility], [facility] Address [address] [place] [address] [place] [phone] Assessment Encounter Date Assessment Date Assessment LastModified [...] nasal spray,padmini pension 024 024 michellelosktamara [id number], [address] [place], [address], 10:52:18 Patient TargetsNo targets recorded. Patient InstructionsNo instructions recorded. Reason for Referral None Reported. Problems Name Problem SNOMED Code Status Onset Date Resolution Date Notes Provider Name and Address Organization Details Recorded Time Tobacco dependence caused by cigarettes 4855078099682 9107 Active 2023 KATHRYN KOWALSKI MD [address] [place] [address], [phone] 9[facility] - [facility] 4 10:51:02 Anterior rhinorrhea 206987499 Active 2023 KATHRYN KOWALSKI MD 100 [facility] 100, [place], [address], [facility] 4 10:51:12 Allergic rhinitis 56294022 Active 2023 KATHRYN KOWALSKI MD [address] [facility] [address], [place], [address], [facility] 4 10:51:19 Problem Notes None recorded. Procedures Surgical History Date Name Laterality Status Provider Name and Address Organization Details Recorded Time 02/22/2024 NasalEndos copy_DP completed KATHRYN KOWALSKI MD 100 [facility] 100, [place], [address], [facility] [...] Updated DateTime 02/22/2024 175.26 cm 32.5 kg/m2 20943.32 g Lorna Ace [place] - [facility] 02/22/2024 10:40:24 Social History None recorded. Functional Status None recorded. Mental Status None recorded. Family History Nothing Reported. Medical History No medical history recorded. Past Encounters Encounter ID Performer Location Encounter Start Date Encounter Closed Date Diagnosis/Indication Diagnosis SNOMED-CT Code Diagnosis ICD10 Code Diagnosis Note [id number] KATHRYN KOWALSKI MD [facility] [address] [address] 02/22/2024 09:50:45 02/22/2024 10:54:27 Tobacco dependence caused by cigarettes 4139085132 2709550 F17.210 Anterior rhinorrhea 2772 02646 J34.89 Allergic rhinitis 382320 04 J30.9 Health Concerns Section Related Observation LastModified by Organization Detai ls LastModified Time None Recorded Concern Status LastModified by Organization Details LastModified Time None Recorded Advance Directives Directive None Recorded Payers Insurance Date Sequence Insurance Name Policy Number Policy Akers Covered Member ID Akers Member ID Guarantor Name 07/18/2024 1 [place] [employer] Efraín Bravo [id number] Efraín Coffman Jr 07/17/2024 2 [place] [facility] Efraín Bravo [id number] Efraín Augustus Jr Notes Date Note Type Note Provider Name and Address Organization Details Recorded Time 02/22/2024 text/html rhinorrheafoul o saige in mucusonset around summer 2022no trial of abxuses nasal lavage twice dailyno prior nose surgery or imaging+nasal congestion fluctuate depending on how laying downtobacco - 1/2ppd work - 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
== END 2025-01-27 08:02 | disposition home or self-care (01) ==
PROVIDERS: PCP Internal Medicine; Visit Provider Urology
DX: N20.1 Calculus of ureter (principal); N13.30 Unspecified hydronephrosis; Z96.0 Presence of urogenital implants; Z13.9 Encounter for screening, unspecified
CPT/HCPCS: 99214

== ENCOUNTER 2025-01-27 07:22 | Outpatient (REF) | payer MEDICARE, OTHER, SELFPAY | END 2025-01-27 07:23 | disposition home or self-care (01) | LOC: HO.LNP 07:22 | PROVIDERS: PCP Internal Medicine; Visit Provider Urology | DX: N13.2 Hydronephrosis with renal and ureteral calculous obstruction (principal); N40.1 Benign prostatic hyperplasia with lower urinary tract symptoms; R30.0 Dysuria; N32.89 Other specified disorders of bladder; R39.15 Urgency of urination; Z79.899 Other long term (current) drug therapy; Z79.82 Long term (current) use of aspirin; Z96.0 Presence of urogenital implants; Z13.89 Encounter for screening for other disorder | CPT/HCPCS: 81003; 87086; 99212 ==

== ENCOUNTER 2025-02-03 16:11 | Outpatient (REF) | payer MEDICARE, OTHER, SELFPAY ==
--- NOTE | ~2025-02-03 | CT_ITS ---
CLINICAL HISTORY: F17.210 - Nicotine dependence, cigarettes, uncomplicated CT lung cancer screening (LDCT) Comparison: CR/SR - XR CHEST 1V - 01/17/25 08:[address]/SR - ABDOMEN ABD_PELVIS_IV_CONTRAST (ADULT) - 01/14/25 21:32 EDT Technique: Axial CT images of the chest using low-dose technique. Referring provider counseled the patient on shared decision-making for LDCT screening. Additional counseling was provided on smoking cessation. Effective radiation dose total: DLP 65 mGycm, CTDIvol 1.7 mGy. Findings: Moderate pulmonary emphysema. Lentiform nodule along the right minor fissure measuring 0.7 cm likely due to an intrapulmonary lymph node. Scattered subsegmental atelectasis and scarring. Juxtapleural nodule along the right major fissure measuring 0.6 cm likely representing an intrapulmonary lymph node. There are pulmonary micro nodules. There is a 6 mm solid right lower lobe pulmonary nodule. Multiple benign-appearing intrapulmonary lymph nodes. Mild coronary artery atherosclerotic vascular calcifications. Cholecystectomy. Multiple additional smaller intrapulmonary lymph nodes. Category 1: Normal; continue annual screening Category 2: Benign appearance or behavior, continue annual screening Category 3: Probably benign, [address] recommended Category 4A: Suspicious, [address] recommended; may consider PET/CT Category 4B: Suspicious, Additional diagnostics and/or tissue sampling recommended Category 4X: Suspicious, Additional diagnostics and/or tissue sampling recommended Category 0: Recalls (incomplete screen due to Incomplete coverage, Noise, Respiratory motion, Expiration, Obscured by acute abnormality) IMPRESSION: There is a 6 mm solid right lower lobe pulmonary nodule. Multiple benign-appearing intrapulmonary lymph nodes. LungRADS 3 - Probably benign: Recommend low dose screening Chest CT in 6 months. ##L3# This document has been electronically signed by: Nicolas Taylor DO on 02/05/2025 09:07:11
--- OUTSIDE RECORDS SUMMARY | 2025-02-03 16:24 | XMS_ITS | Data Portability ---
Author Organization [place] - [facility], [facility] Address [address] [place] [address] [place] [phone] Assessment Encounter Date Assessment Date Assessment LastModified [...] nasal spray,padmini pension 024 024 michellelosktamara [id number], [address] [place], [address], 10:52:18 Patient TargetsNo targets recorded. Patient InstructionsNo instructions recorded. Reason for Referral None Reported. Problems Name Problem SNOMED Code Status Onset Date Resolution Date Notes Provider Name and Address Organization Details Recorded Time Tobacco dependence caused by cigarettes 9975594932714 9107 Active 2023 KATHRYN KOWALSKI MD [address] [place] [address], [phone] 9[facility] - [facility] 4 10:51:02 Anterior rhinorrhea 838395832 Active 2023 KATHRYN KOWALSKI MD 100 [facility] 100, [place], [address], [facility] 4 10:51:12 Allergic rhinitis 16876573 Active 2023 KATHRYN KOWALSKI MD [address] [facility] 100, [place], [address], [facility] 4 10:51:19 Problem Notes None recorded. Procedures Surgical History Date Name Laterality Status Provider Name and Address Organization Details Recorded Time 02/22/2024 NasalEndos copy_DP completed KATHRYN KOWALSKI MD 100 [facility] 100, [place], [address], [facility] 02/22/2024 10:50:34 Imaging Results None recorded. [...] Updated DateTime 02/22/2024 175.26 cm 32.5 kg/m2 28911.32 g Lorna Ace [place] - [facility] 02/22/2024 10:40:24 Social History None recorded. Functional Status None recorded. Mental Status None recorded. Family History Nothing Reported. Medical History No medical history recorded. Past Encounters Encounter ID Performer Location Encounter Start Date Encounter Closed Date Diagnosis/Indication Diagnosis SNOMED-CT Code Diagnosis ICD10 Code Diagnosis Note [id number] KATHRYN KOWALSKI MD [facility] [address] [address] 02/22/2024 09:50:45 02/22/2024 10:54:27 Tobacco dependence caused by cigarettes 7678128558 2741454 F17.210 Anterior rhinorrhea 2772 [address]92 J34.89 Allergic rhinitis 012628 04 J30.9 Health Concerns Section Related Observation LastModified by Organization Detai ls LastModified Time None Recorded Concern Status LastModified by Organization Details LastModified Time None Recorded Advance Directives Directive None Recorded Payers Insurance Date Sequence Insurance Name Policy Number Policy Akers Covered Member ID Akers Member ID Guarantor Name 07/18/2024 1 [place] [employer] Efraín Bravo [id number] Efraín Coffman Jr 07/17/2024 2 [place] [facility] Efraín Bravo [id number] Efraín Augustus Jr Notes Date Note Type Note Provider Name and Address Organization Details Recorded Time 02/22/2024 text/html rhinorrheafoul o saige in mucusonset around summer 2022no trial of abxuses nasal lavage twice dailyno prior nose surgery or imaging+nasal congestion fluctuate depending on how laying downtobacco - 1/2ppd 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
--- OUTSIDE RECORDS SUMMARY | 2025-02-03 16:24 | XMS_ITS | Patient Health Record ---
Author Organization [facility] Address [address] [place] [address] Care Team Providers Care Requisition Approver Name Role Phone Tanner Carrera [phone] Reason For Referral No Information Plan Of Treatment No Information
--- OUTSIDE RECORDS SUMMARY | 2025-02-03 16:25 | XMS_ITS | Clinical Summary ---
Author Organization [facility] Address [address] [place] [address] Phone Care Team Providers Care Senior Investment Analyst Name Role Phone Ciara Garcia MD [...] night Active cholecalciferol (VITAMIN D-3) 1.25 MG (42005 UT) tablet Take 50,000 Units by mouth [...] Medicaid [place] Medicare [place] Care Teams Senior Investment Analyst Relationship Specialty Start Date End Date Ciara Garcia MD [address] [place] [phone] PCP - General Internal Medicine 02/03/21
== END 2025-02-03 16:12 | disposition home or self-care (01) ==
LOC: HO.CT 16:11
PROVIDERS: PCP Internal Medicine; Visit Provider Physician Assistant Medical
DX: Z12.2 Encounter for screening for malignant neoplasm of respiratory organs (principal); F17.210 Nicotine dependence, cigarettes, uncomplicated
CPT/HCPCS: 71271

== ENCOUNTER → 2025-02-03 16:30 | Outpatient (BNV) | payer MEDICARE, MEDICAID, SELFPAY | PROVIDERS: PCP Internal Medicine; Visit Provider Family Medicine | DX: Z12.2 Encounter for screening for malignant neoplasm of respiratory organs (principal); R91.1 Solitary pulmonary nodule; R59.0 Localized enlarged lymph nodes; F17.210 Nicotine dependence, cigarettes, uncomplicated | CPT/HCPCS: 71271 ==

== ENCOUNTER 2025-02-04 05:53 | Day surgery (SDC) | payer MEDICARE, OTHER, SELFPAY ==
--- OUTSIDE RECORDS SUMMARY | 2025-01-21 07:19 | XMS_ITS | Encounter Summary ---
Author Organization [employer] Address [address] [place] [address] Care Team Providers Care Cigar Packer And Shader Name Role Phone Ciara Garcia MD Primary Care Provide r Reason for Visit * Reason Comments Med Refill Encounter Details Date Type Department Care Team ([facility] st Contact Info) Description 02/26/2024 Refill [facility] [address] [place] [address] Ciara Garcia MD [address] [place] [address] Cervicalgia; Tobacco dependence syndrome; Uncomplicated asthma, unspecified [...] Care Team (Late st Contact Info) Description 01/24/2025 3:30 PM EDT Office Visit [address] [address] Ciara Garcia MD [address] [place] [phone] 02/11/2025 10:00 AM EDT Clinical Support [address] [address] Jasmina Coronado, MARIBEL 03/06/2025 11:30 AM EDT Telemedicine [address] [address] Ciara Garcia MD [address] [place] [phone] documented as of this encounter Visit Diagnoses Diagnosis Cervicalgia Tobacco dependence syndrome Tobacco use disorder Uncomplicated asthma, unspecified asthma severity, unspecified whether persistent documented in this encounter Additional Health Concerns Assessment Noted Time PHQ-9 Depression Total Score: 0 12/29/19 23 11:51 AM EDT documented as of this encounter Care Teams Cigar Packer And Shader Relationship Specialty Start Date End Date Ciara Garcia MD [address] [place] [phone] PCP - General Family Medicine 06/04/19 documented as of this encounter
--- OUTSIDE RECORDS SUMMARY | 2025-01-21 07:20 | XMS_ITS | Patient Health Record ---
Author Organization [facility] Address [address] [place] [address] Care Team Providers Care Rear Load Truck Driver Name Role Phone Tanner Carrera [phone] Reason For Referral No Information Plan Of Treatment No Information
--- OUTSIDE RECORDS SUMMARY | 2025-01-21 07:20 | XMS_ITS | Clinical Summary ---
Author Organization [facility] Address [address] [place] [address] Phone Care Team Providers Care Performance Tester Name Role Phone Ciara Garcia MD [...] night Active cholecalciferol (VITAMIN D-3) 1.25 MG (68068 UT) tablet Take 50,000 Units by mouth [...] Cancer Screening: Sigmoidoscopy 11/07/2007 Influenza Vaccine (#1) 2025 Hepatitis B Vaccine Aged Out No longe r eligible based on patient's age to complete this topic Insurance Medicare Medicaid [place] Medicare Medicaid [place] Care Teams Performance Tester Relationship Specialty Start Date End Date Ciara Garcia MD [address] [place] [phone] PCP - General Internal Medicine 02/03/21
--- OUTSIDE RECORDS SUMMARY | 2025-01-21 07:20 | XMS_ITS | Data Portability ---
Author Organization [place] [facility], [facility] Address [address] [place] [address] [place] [phone] Assessment Encounter Date Assessment Date Assessment LastModified [...] nasal spray,padmini pension 024 024 michellelosktamara [id number], [address] [place], [address], 10:52:18 Patient TargetsNo targets recorded. Patient InstructionsNo instructions recorded. Reason for Referral None Reported. 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 Procedures Surgical History Date Name Laterality Status Provider Name and Address Organization Details Recorded Time 02/22/2024 NasalEndos copy_DP completed KATHYRN KOWALSKI MD 100 [facility] 100, [place], [address], [facility] 02/22/2024 10:50:34 Imaging Results None recorded. Procedure [...] Updated DateTime 02/22/2024 175.26 cm 32.5 kg/m2 27929.32 g Lorna Ace [place] - [facility] 02/22/2024 10:40:24 Social History None recorded. Functional Status None recorded. Mental Status None recorded. Family History Nothing Reported. Medical History No medical history recorded. Past Encounters Encounter ID Performer Location Encounter Start Date Encounter Closed Date Diagnosis/Indication Diagnosis SNOMED-CT Code Diagnosis ICD10 Code Diagnosis Note [id number] KATHRYN KOWALSKI MD [facility] [address] [address] 02/22/2024 09:50:45 02/22/2024 10:54:27 Tobacco dependence caused by cigarettes 7651729406 7142959 F17.210 Anterior rhinorrhea 2772 17447 J34.89 Allergic rhinitis 951772 04 J30.9 Health Concerns Section Related Observation LastModified by Organization Detai ls LastModified Time None Recorded Concern Status LastModified by Organization Details LastModified Time None Recorded Advance Directives Directive None Recorded Payers Insurance Date Sequence Insurance Name Policy Number Policy Akers Covered Member ID Akers Member ID Guarantor Name 07/18/2024 1 [place] [employer] Efraín Bravo [id number] Efraín Coffman Jr 07/17/2024 2 [place] [facility] Efraín Bravo [id number] Efraín Augustus Jr Notes Date Note Type Note Provider Name and Address Organization Details Recorded Time 02/22/2024 text/html rhinorrheafoul o saige in mucusonset around summer 2022no trial of abxuses nasal lavage twice dailyno prior nose surgery or imaging+nasal congestion fluctuate depending on how laying downtobacco - 1/2ppd work - disabled, 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
[2025-01-31 13:16] VITALS: BMI 33.7
[2025-02-04] VITALS (7 sets, daily range): BP systolic 123–160; BP diastolic 62–81; PULSE 61–77; RESP 14–16; TEMP 36.2–36.6; O2SAT 93–94
--- NOTE | ~2025-02-04 | FL_ITS ---
EXAMINATION: FL GUIDANCE ONLY HISTORY: stone left COMPARISON: Correlation is made with a CT of the abdomen with contrast dated 01/14/2025. TECHNIQUE: Fluoroscopy time: 8.2 seconds. Cumulative Dose: 4.52 mGy. Images: 2. FINDINGS: Fluoroscopic spot films demonstrate a wire, likely in the distal left ureter. FL/FL guidance in OR IMPRESSION: Fluoroscopy during procedure. Please see procedure report for additional information. Electronically signed by: Tanner Wells MD 02/04/2025 08:45 AM EDT
[2025-02-04] MEDS: Lactated Ringers 1,000 ML 100 ML IVCONT (06:32)
[2025-02-04 06:33] LABS: Glucose, Whole Blood 124 mg/dL (60-115)
--- NOTE | 2025-02-04 07:20 | HO.ANESPROP2 ---
Documented by User: Cynthia Agrawal NP 02/03/25 08:43 HPI - Anesthesia Eval Consult details Narrative: 64 yr old male for cystoscopy, Ureteroroscopy, Retro, Laser, with stent exchange, left. s/p cystoscopy with stent 01/16/25, GA LMA 5 SUNNY on CPAP COPD: Required post op O2 Smoker DM: on metformin PMFSH Active Problems Active Problems: All Active Problems (Updated 01/31/25 @ 13:26 by hSeyla Fields, RN) Ureteral stent present (Acute) Hydronephrosis, left (Acute) Left ureteral stone (Acute) Ureteral stone (Acute) Poor historian (Acute) Elevated liver enzymes (Acute) BPH associated with nocturia (Acute) Hypoventilation (Acute) Incomplete emptying of bladder due to benign prostatic hyperplasia (Acute) Urinary urgency (Acute) Severe comorbid illness (Acute) Spinal cord stimulator dysfunction (Acute) CPAP (continuous positive airway pressure) dependence (Acute) Bronchitis (Acute) Asthma (Acute) Arthritis (Acute) Sleep apnea (Acute) Nicotine dependence, cigarettes, uncomplicated (Acute) Cervical radiculopathy (Acute) Numbness in both hands (Acute) Complex sleep apnea syndrome (Acute) SUNNY on CPAP (Acute) HTN (hypertension) (Acute) Seizure disorder (Acute) COPD (chronic obstructive pulmonary disease) (Acute) Past Medical History Medical History Bilateral arm pain Leg pain Back pain Chronic, continuous use of opioids Complex sleep apnea syndrome COPD (chronic obstructive pulmonary disease) Seizure disorder HTN (hypertension) Nicotine dependence, cigarettes, uncomplicated Cervical radiculopathy Numbness in both hands SUNNY on CPAP Umbilical hernia Pancreas anomaly, congenital Family History Family History Father Cardiac abnormality Mother No problems noted. Family history of problems with anesthesia: No Surgical History Surgical History History of ureteroscopy (01/15/25) History of colonoscopy History of tonsillectomy History of cholecystectomy History of liver biopsy History of pancreatic surgery History of elbow surgery S/P insertion of spinal cord stimulator History of Problems with Anesthesia: No Social History Social History (Updated 01/31/25 @ 13:21 by Sheyla Fields, MARIBEL) Household Members: Spouse Housing: House Are you a primary wild animal caretaker to a significant other at home: No Do you presently have visiting nurse or other home services: No Alcohol intake: former Patient Tobacco Use Status: Current everyday Tobacco user Tobacco use type: Cigarette Cigarette Packs Per Day: 0.5 Cigarettes Per Day: 10 Years Smoked: 50 years Smoked in Last 30 Days: Yes e-Cigarette/Vaping Use: Never Used Second Hand Smoke Exposure: Yes Use of substances other than those prescribed or required for medical reasons: No Have you been hit, kicked, punched, or otherwise hurt by someone within the past year? If so, by whom?: No Are you DNR?: No Advance Directives: No Advance Directives Information Provided: Yes Advance Directives on File: No Poor oral hygiene: Yes service: No Current occupational status: disabled Meds Allergies Allergy/AdvReac Type Severity Reaction Status Date / Time marijuana (cannabis) Allergy Severe Seizure Verified 02/04/25 06:07 (marijuana) varenicline (From Chantix) AdvReac Intermediate Nausea Verified 02/04/25 06:07 Home Medications ?Medication ?Instructions ?Recorded ?Confirmed ?Last Taken ?Type aspirin 81 mg tablet,delayed 81 mg PO DAILY 09/02/20 01/31/25 01/31/25 History release simvastatin 40 mg tablet 40 mg PO BEDTIME 09/02/20 01/31/25 01/14/25 History oxycodone 80 mg tablet,crush 1 tab PO Q8H 04/06/21 01/31/25 02/04/25 History resistant,extended release 12 hr (OxyContin) blood sugar diagnostic (FreeStyle #10 ea 05/12/21 01/27/25 Unknown History Lite Strips) blood-glucose meter (FreeStyle #1 ea 05/12/21 01/27/25 Unknown History Lite Meter kit) lancets 28 gauge (FreeStyle #100 ea 05/12/21 01/27/25 Unknown History Lancets) albuterol sulfate 90 mcg/actuation 2 puff inhalation Q4H PRN muscle 01/15/25 01/31/25 Unknown History aerosol inhaler (Ventolin HFA) spasm budesonide-formoterol HFA 160 1 inh inhalation DAILY 01/15/25 01/31/25 02/04/25 History mcg-4.5 mcg/actuation aerosol inhaler (Symbicort) bupropion HCl 150 mg tablet,12 hr 150 mg PO BID 01/15/25 01/31/25 01/14/25 History sustained-release cholecalciferol (vitamin D3) 25 25 mcg PO DAILY 01/15/25 01/31/25 01/14/25 History mcg (1,000 unit) tablet cyanocobalamin (vitamin B-12) 1,000 mcg PO DAILY 01/15/25 01/31/25 01/14/25 History 1,000 mcg tablet lisinopril 10 mg tablet 10 mg PO DAILY 01/15/25 01/31/25 01/14/25 History metformin 500 mg tablet 500 mg PO BIDWM 01/15/25 01/31/25 01/14/25 History modafinil 200 mg tablet 200 mg PO BID 01/15/25 01/31/25 01/14/25 History Exam Height,Weight and Vital Signs: Height 5 ft 10 in Weight 106.594 kg Assessment and Plan Final Anesthetic Review Family History of Problems with Anesthesia: No History of Problems with Anesthesia: No Documented by User: Jaz Suarez DO 02/04/25 07:53 [facility] Past Medical History Medical History Bilateral arm pain Leg pain Back pain Chronic, continuous use of opioids Complex sleep apnea syndrome COPD (chronic obstructive pulmonary disease) Seizure disorder HTN (hypertension) Nicotine dependence, cigarettes, uncomplicated Cervical radiculopathy Numbness in both hands SUNNY on CPAP Umbilical hernia Pancreas anomaly, congenital Family History Family History Father Cardiac abnormality Mother No problems noted. Family history of problems with anesthesia: No Surgical History Surgical History History of ureteroscopy (01/15/25) History of colonoscopy History of tonsillectomy History of cholecystectomy History of liver biopsy History of pancreatic surgery History of elbow surgery S/P insertion of spinal cord stimulator History of Problems with Anesthesia: No Social History Social History (Updated 01/31/25 @ 13:21 by Sheyla Fields RN) Household Members: Spouse Housing: House Are you a primary wild animal caretaker to a significant other at home: No Do you presently have visiting nurse or other home services: No Alcohol intake: former Patient Tobacco Use Status: Current everyday Tobacco user Tobacco use type: Cigarette Cigarette Packs Per Day: 0.5 Cigarettes Per Day: 10 Years Smoked: 50 years Smoked in Last 30 Days: Yes e-Cigarette/Vaping Use: Never Used Second Hand Smoke Exposure: Yes Use of substances other than those prescribed or required for medical reasons: No Have you been hit, kicked, punched, or otherwise hurt by someone within the past year? If so, by whom?: No Are you DNR?: No Advance Directives: No Advance Directives Information Provided: Yes Advance Directives on File: No Poor oral hygiene: Yes service: No Current occupational status: disabled Meds Allergies Allergy/AdvReac Type Severity Reaction Status Date / Time marijuana (cannabis) Allergy Severe Seizure Verified 02/04/25 06:07 (marijuana) varenicline (From Chantix) AdvReac Intermediate Nausea Verified 02/04/25 06:07 Home Medications ?Medication ?Instructions ?Recorded ?Confirmed ?Last Taken ?Type aspirin 81 mg tablet,delayed 81 mg PO DAILY 09/02/20 01/31/25 01/31/25 History release simvastatin 40 mg tablet 40 mg PO BEDTIME 09/02/20 01/31/25 01/14/25 History oxycodone 80 mg tablet,crush 1 tab PO Q8H 04/06/21 01/31/25 02/04/25 History resistant,extended release 12 hr (OxyContin) blood sugar diagnostic (FreeStyle #10 ea 05/12/21 01/27/25 Unknown History Lite Strips) blood-glucose meter (FreeStyle #1 ea 05/12/21 01/27/25 Unknown History Lite Meter kit) lancets 28 gauge (FreeStyle #100 ea 05/12/21 01/27/25 Unknown History Lancets) albuterol sulfate 90 mcg/actuation 2 puff inhalation Q4H PRN muscle 01/15/25 01/31/25 Unknown History aerosol inhaler (Ventolin HFA) spasm budesonide-formoterol HFA 160 1 inh inhalation DAILY 01/15/25 01/31/25 02/04/25 History mcg-4.5 mcg/actuation aerosol inhaler (Symbicort) bupropion HCl 150 mg tablet,12 hr 150 mg PO BID 01/15/25 01/31/25 01/14/25 History sustained-release cholecalciferol (vitamin D3) 25 25 mcg PO DAILY 01/15/25 01/31/25 01/14/25 History mcg (1,000 unit) tablet cyanocobalamin (vitamin B-12) 1,000 mcg PO DAILY 01/15/25 01/31/25 01/14/25 History 1,000 mcg tablet lisinopril 10 mg tablet 10 mg PO DAILY 01/15/25 01/31/25 01/14/25 History metformin 500 mg tablet 500 mg PO BIDWM 01/15/25 01/31/25 01/14/25 History modafinil 200 mg tablet 200 mg PO BID 01/15/25 01/31/25 01/14/25 History Exam Exam Date and Time: 02/04/25 0720 Height,Weight and Vital Signs: Height 5 ft 10 in Weight 106.594 kg Vital Signs Temperature 97.8 F 02/04/25 06:11 Pulse Rate 61 02/04/25 06:11 Respiratory Rate 16 02/04/25 06:11 Blood Pressure 141/65 H 02/04/25 06:11 Pulse Oximetry 93 02/04/25 06:11 Oxygen Delivery Method Room Air 02/04/25 06:11 Temperature 97.8 F 02/04/25 06:11 Pulse Rate 61 02/04/25 06:11 Respiratory Rate 16 02/04/25 06:11 Blood Pressure 141/65 H 02/04/25 06:11 Pulse Oximetry 93 02/04/25 06:11 Oxygen Delivery Method Room Air 02/04/25 06:11 Airway Mallampati Class: III TM Dist: >3cm Denture: Upper Heart: S1S2 Lungs: Diminished bilaterally Assessment and Plan Assessment Anesthesia Assessment: Anesthesia Plan Discussed and Chart Reviewed Final Anesthetic Review Family History of Problems with Anesthesia: No History of Problems with Anesthesia: No NPO: Yes ASA Class: III Final Preanesthetic Review: No Changes in Pt Med Stat, Meds/Allgs Chart Reviewed, Consent Obtained/Reviewed and Anes Risks/Benef Reviewed Patient Risk: Intermediate Procedure Risk: Low Anesthetic Plan Anesthetic Plan: GA and Agree w/ Assess. and Plan Disposition: Standard PACU
--- NOTE | 2025-02-04 07:31 | MHC.SHP ---
Pre-Procedural Eval Section A - 24 Hr Update-Section A only Date of Service: 02/04/25 The patient is an INPATIENT: No The patient has been examined within 24 hours of the surgical procedure. The History & Physical has been completed within 30 days and I have reviewed it.: Yes Section B - Complete if H&P > 30 days Chief Complaint: Calculus of ureter, left Allergies: Allergies Allergy/AdvReac Type Severity Reaction Status Date / Time marijuana (cannabis) Allergy Severe Seizure Verified 02/04/25 06:07 (marijuana) varenicline (From Chantix) AdvReac Intermediate Nausea Verified 02/04/25 06:07 Plan Diagnosis/Plan: Unchanged I have reviewed the history and physical and performed a pertinent physical examination on my patient. No changes have occurred unless specified. Plan for Cystoscopy, Left ureteroscopy, laser lithotripsy, possible ureteral stent exchange. Risks discussed included but not limited to, possible need to repeat procedure if stone is not completely fragmented, Irritative voiding symptoms, bladder spasms, urgency, blood in urine. Time Spent With Patient Time: Total time managing care of this patient today ____ minutes.
--- NOTE | 2025-02-04 07:31 | W.PM.OPN ---
Operative Note Operative Note Date of Service: 02/04/25 Narrative: PreOperative Diagnosis:?? Left ureteral stone status post left ureteral stent Post Operative Diagnosis:?? Left ureteral stone status post left ureteral stent Procedure: Cystoscopy, remove left ureteral stent Left ureteroscopy laser lithotripsy Stone extraction Surgeon:?Dr Vicky Johnson Anesthesia:? General Indications for procedure: Here for stone fragmentation. Procedure: After informed consent was verified the patient was brought to the operating placed on the OR table in supine position.? General Anesthesia was administered per protocol.? The patient was placed in lithotomy position, prepped and draped in the usual sterile fashion.? Safety pause time-out and side of surgery confirmed.? Antibiotics confirmed. Loring sounds were used 16 Bangladeshi to 24 Bangladeshi to allow the 22 Bangladeshi cystoscope to be placed transurethrally, the bulbous urethra was within normal limits. The prostatic urethra was noted to have bilobar enlargement with median lobe prominence. The bladder was visualized.? Both ureteric orifices were in normal position. The left ureteral stent was curled in the bladder. A guidewire was passed alongside the stent. The distal end of the ureteral stent was grasped with the flexible grasping forceps. The stent was pulled retrograde through the urethra. The cystoscope was removed, leaving the guidewire in place. The guidewire was used as the safety and was attached to the draping. The semi rigid ureteroscope was passed transurethrally to the level of the stone in the distal left ureter. Laser lithotripsy of the stone was done using the 365 fiber with 0.8 joules by a rate of 6 hertz settings. There was good fragmentation of the stone. The 0 degree basket was used to remove the stone fragments, which were sent for analysis. The mucosa of the ureter looked good. The ureteroscope was removed. The cystoscope was passed over the safety guidewire. The guidewire was removed. A stent was not replaced. The bladder was emptied.? The rigid cystoscope was removed. ? The patient tolerated the procedure well and was brought to the recovery room in stable condition. Complications: None Drains: None
== END 2025-02-04 09:44 | disposition home or self-care (01) ==
PROVIDERS: PCP Internal Medicine; Visit Provider Urology
PROC: (CPT 52353; principal; 2025-02-04 07:30)
DX: N20.1 Calculus of ureter (principal); N13.30 Unspecified hydronephrosis; Z96.0 Presence of urogenital implants; G47.33 Obstructive sleep apnea (adult) (pediatric); I10 Essential (primary) hypertension; E11.9 Type 2 diabetes mellitus without complications; J44.9 Chronic obstructive pulmonary disease, unspecified; G40.909 Epilepsy, unspecified, not intractable, without status epilepticus; R20.0 Anesthesia of skin; Q45.3 Other congenital malformations of pancreas and pancreatic duct; F17.210 Nicotine dependence, cigarettes, uncomplicated; Z79.82 Long term (current) use of aspirin; Z79.899 Other long term (current) drug therapy; Z79.84 Long term (current) use of oral hypoglycemic drugs; Z79.51 Long term (current) use of inhaled steroids; Z99.89 Dependence on other enabling machines and devices; Z88.8 Allergy status to other drugs, medicaments and biological substances; Z98.890 Other specified postprocedural states
CPT/HCPCS: 52353; 82365; 82947; 88300; C1758; C1769; J0690; J1100; J1938; J2371; J2405; J2704; J3010; Q9967

== ENCOUNTER → 2025-02-04 05:53 | Outpatient (BNV) | payer MEDICARE, SELFPAY | PROVIDERS: PCP Internal Medicine; Visit Provider Urology | DX: N20.1 Calculus of ureter (principal) | CPT/HCPCS: 52353 ==

== ENCOUNTER 2025-03-25 10:43 | Outpatient (REF) | payer MEDICAID, SELFPAY ==
--- OUTSIDE RECORDS SUMMARY | 2025-03-25 10:20 | XMS_ITS | Encounter Summary ---
Author Organization [employer] Address [address] [place] [address] 7 [place] [address] Care Team Providers Care Cooker Cleaner Name Role Phone Ciara Garcia MD Primary Care Provide r Reason for Referral * Consultation (Routine) - Pending Review Specialty Diagnoses / Procedures Referred By Contac t Referred To Contact Cardiology Diagnoses Localized swelling of both lower legs Missy Gonzalez MD [address] [place] [address] Phone: tel: fax: Referral ID Status Reason Start Date Expiration Date Visits Requested Visits Authorized [id number] Pending Review Specialty Services Required 03/25/2025 03/25/2026 1 1 Reason for Visit * Reason Comments Leg Swelling Encounter Details Date Type Department Care Team (Late st Contact Info) Description 03/25/2025 10:20 AM EDT Office Visit [facility] [address] [place] [phone] Missy Gonzalez MD [address] [place] [phone] Localized swelling of both lower legs (Primary Dx); Type 2 diabetes mellitus without complication, without long-term current use of insulin ([facility]) Social History Tobacco Use Types Packs/Day Years Used Date Smoking Tobacco: Every Day Cigarettes 0.5 45 Passive Smoke Exposure: Current Smokeless Tobacco: Never Tobacco Cessation:Ready to Q uit: Not Asked; Counseling Given: Not Answered Alcohol Use Standard Drinks/Week Comments Never 0 (1 standard drink = 0.6 oz pur e alcohol) Depression Answer Date Recorded Patient Health Questionnaire-9 Score 0 03/06/2025 Patient Health Questionnaire-9 Score 0 03/06/2025 Last PHQ-9: Questionnaire Data Not on file 0 03/06/2025 Housing Stability Answer Date Recorded What is [...] Date Recorded Patient Health Questionnaire-2 Score 0 03/06/2025 Internet Access Answer Date Recorded Internet Access [...] Sign Reading Time Taken Comments Blood Pressure 122/70 03/25/2025 10:07 AM EDT Pulse 80 03/25/2025 10:07 AM EDT Temperature 36.8 C (98.2 F) 03/25/2025 10:07 AM EDT Respiratory Rate 18 03/25/2025 10:07 AM EDT Oxygen Saturation 100% 03/25/2025 10:07 AM EDT Inhaled Oxygen Concentration - - Weight 111 kg (244 lb 3.2 oz) 03/25/2025 10:07 A M EDT Height 175.3 cm (5' 9 ) 03/25/2025 10:07 AM EDT Body Mass Index 36.06 03/25/2025 10:07 AM EDT documented in this encounter Progress Notes * Missy Gonzalez MD - 03/25/2025 10:20 AM EDT Subjective Patient ID: Efraín Bravo is a 64 y.o. male with past medical history of diastolic dysfunction, COPD, type 2 diabetes, hypertension, metabolic dysfunction-associated steatotic liver disease, SUNNY, neuropathy, tobacco dependence who presents to walk in clinic for Leg Swelling. He report leg swilling 8 months but getting worse. Reports SOB at baseline but SOB has been worse. Has slept at an angle for years. Using albuterol a lot more . He reports he saw cardiology 1 time in distant past, does not recall having and echo and not in system. Review of Systems Constitutional: Positive for fatigue. Negative for fever. Respiratory: Positive for shortness of breath. Negative for cough, choking, chest tightness and wheezing. Objective Visit Vitals BP 122/70 (BP Location: Left arm, Patient Position: Sitting, BP Cuff Size: Large adult) Pulse 80 Temp 98.2 ??F (36.8 ??C) (Temporal) Resp 18 Body mass index is 36.06 kg/m??. Physical Exam Neck: Comments: Flat JVP at 40 degrees Cardiovascular: Rate and Rhythm: Normal rate and regular rhythm. Pulses: Normal pulses. Heart sounds: Normal heart sounds. Musculoskeletal: Right lower leg: Edema present. Left lower leg: Edema present. Comments: 3+ pitting edema LE bilaterally 2+ DP pulse No erythema, no calf tenderness Lymphadenopathy: Cervical: No cervical adenopathy. Assessment & Plan Localized swelling of both lower legs Bilateral lower extremity edema, acute on chronic. Differential includes chronic venous insufficiency, medication induced, fluid overload from untreated SUNNY or heart failure, and lipedema, low oncotic pressure. No evidence of DVT or cellulitis, -No evidence of heart failure or untreated SUNNY, JVP flat, lungs clear, he is compliant with CPAP, will refer to cardiology given risk factors for chronic congestive heart failure. -Reveiwed chronic veous insufficiency is the most common cuse. Edema may be a sign cardiopulmonary,renal, hepatic, or thyroid dysfunction. -Management includes compression, elevation, and avoidance of exacerbating medications. -He reports he was on lasix in the pat but it was stopped for unclear reason, possibly frequent renal calculi, Will trial lasix 20mg for 5 days. -PCP apt is for May. [facility] to see if symptoms worsen or persist. ER precautions discussed. He agrees with the plan. Orders: TSH with Reflex to Free T4; Future Basic Metabolic Panel; Future Albumin, Random Urine W/Creatinine; Future CBC auto differential; Future Hepatic Function Panel; Future Referral to Cardiology; Future furosemide (Lasix) 20 MG tablet; Take 1 tablet (20 mg) by mouth Once per day for 5 days. Type 2 diabetes mellitus without complication, without long-term current use of insulin (CMS/HCC) Orders: TSH with Reflex to Free T4; Future Future Appointments Date Time Provider Department Center 03/25/2025 10:20 AM [facility] 1 WALK-IN [facility] 05/08/2025 10:00 AM Jasmina Coronado RN [facility] 05/28/2025 9:00 AM Ciara Celaya MD [facility] 06/26/2025 2:00 PM Gabriela Castañeda OD [facility] documented in this encounter Miscellaneous Notes * Assessment & Plan Note - Missy Gonzalez MD - 03/25/2025 10:20 AM EDT Associated Problem(s): Diabetes (CMS/HCC) Orders: TSH with Reflex to Free T4; Future documented in this encounter Plan of Treatment Upcoming Encounters Date Type Department Care Team (Late st Contact Info) Description 04/03/2025 1:00 PM EDT Office Visit [facility] [address] [place] [address] 05/08/2025 10:00 AM EDT Clinical Support [facility] [address] [place] [address] Jasmina Coronado RN 05/28/2025 9:00 AM EST Office Visit [facility] [address] [place] [address] Ciara Garcia MD [address] [place] [address] 06/26/2025 2:00 PM EST Office Visit [facility] [address] [place], [place] [phone] Gabriela Castañeda, OD [address] [place], [place] [phone] Scheduled Referrals Name Type Priority Associated Diagnoses Order Schedule Referral to Cardiology Outpatient Referral Routine Localized swelling of both lower legs Expected: 03/25/2025 (Approximate), Expires: 03/25/2026 documented as of this encounter Procedures Procedure Name Priority Date/Time Associated Diagnosis Comments TSH W/REFLEX TO FT4 Routine 03/25/2025 1 0:49 AM EDT Localized swelling of both lower legs Type 2 diabetes mellitus without complication, without long-term current use of insulin ([facility]) ALBUMIN, RANDOM URINE W/CREATININE Routine 03/25/2025 10:49 AM EDT Localized swelling of both lower legs CBC WITH AUTO DIFFERENTIAL Routine 03/25/2025 10:49 AM EDT Localized swelling of both lower legs HEPATIC FUNCTION PANEL Routine 03/25/2025 10:49 AM EDT Localized swelling of both lower legs BASIC METABOLIC PANEL Routine 03/25/2025 10:49 AM EDT Localized swelling of both lower legs documented in this encounter Results * (ABNORMAL) Hepatic Function Panel (03/25/2025 10:49 AM EDT) Bilirubin, Total 0.4 0.0 - 1.0 mg/dL [facility] Bilirubin, Direct 0.1 0.0 - 0.5 mg/dL [facility] Aspartate Amino Transferase 44(H) 5 - 37 U/L [facility] Alanine Aminotransferase 45(H) 0 - 40 U/L [facility] Total Protein 6.7 6.5 - 8.0 g/dL [facility] Albumin Level 4.5 3.5 - 5.0 g/dL [facility] Alkaline Phosphatase 112 39 - 117 U/L [facility] Blood Venous blood specimen / Unknown 03/25/2025 10:49 AM EDT 03/25/2025 11:24 AM EDT us Missy Gonzalez MD LAB BLOOD ORDERABLES Final Result [facility] [address] [place] [address] [phone] * (ABNORMAL) CBC auto differential (03/25/2025 10:49 AM EDT) White Blood Count 12.7(H) 4.8 - 10.8 X10*3/uL [facility] Red Blood Count 4.62 4.60 - 5.80 X10*6/uL [facility] Hemoglobin 14.4 14.0 - 18.0 g/dl [facility] Hematocrit 44.2 42.0 - 52.0 % [facility] Mean Corpuscular Volume 95.7 80.0 - 98.0 fL [facility] Mean Corpuscular Hemoglobin 31.2 27.0 - 33.0 pg [facility] Mean Corpuscular HGB Conc 32.6 31.0 - 36.0 g/dl [facility] Red Cell Distribution Width 13.9 11.0 - 16.0 % [facility] Platelet Count 213 160 - 400 X10*3/uL [facility] Mean Platelet Volume 10.7 9.4 - 12.4 fL [facility] Neutrophils Percent Auto 62.2 45 - 73 % [facility] Imm Gran Pct Auto 1.3(H) 0.0 - 0.4 % [facility] Lymphocytes Percent Auto 25.3 20 - 40 % [facility] Monocytes Percent Auto 7.2 2 - 11 % [facility] Eosinophils Percent Auto 3.1 0 - 4 % [facility] Basophils Percent Auto 0.9 0 - 2 % [facility] NRBC Pct Auto 0.0 0.0 - 0.2 /100WBC [facility] Neutrophils Absolute Auto 7.9 2.0 - 8.3 x10*3/uL [facility] Imm Gran Abs Auto 0.16(H) 0.00 - 0.03 X10*3/uL [facility] Lymphocytes Absolute Auto 3.2 1.2 - 4.9 X10*3/uL [facility] Monocytes Absolute Auto 0.9 0.1 - 1.2 X10*3/uL [facility] Eosinophils Absolute Auto 0.4 0.0 - 0.4 X10*3/uL [facility] Basophils Absolute Auto 0.1 0.0 - 0.2 X10*3/uL [facility] NRBC Abs Auto 0.000 0.0 - 0.012 X10*3/uL [facility] Blood Venous blood specimen / Unknown 03/25/2025 10:49 AM EDT 03/25/2025 11:23 AM EDT us Missy Gonzalez MD LAB BLOOD ORDERABLES Final Result [facility] [address], [place] [phone] * (ABNORMAL) Albumin, Random Urine W/Creatinine (03/25/2025 10:49 AM EDT) Creatinine, Urine 172.12 mg/dL [facility] Microalbumin Urine 78.0 mg/L [facility] Microalbum Creatinine Ratio Ur 45.3(H) <30 ug/mg cr [facility] Comment:Albumin/Creatinine R atio Reference Ranges: Normal: < 30 ug/mg creatinine Microalbuminuria: 30 - 300 ug/mg creatinineClinical Albuminuria: > 300 ug/mg creatinine Urine 03/25/2025 10:4 9 AM EDT 03/25/2025 12:14 PM EDT Missy Gonzalez MD LAB URINE ORDERABLES Final Result Performing Organization Address [facility] Co de Phone Number [facility] [address] [place] [address] [phone] * (ABNORMAL) Basic Metabolic Panel (03/25/2025 10:49 AM EDT) Sodium 144 135 - 145 mmol/L [facility] Potassium 4.4 3.3 - 5.1 mmol/L [facility] Chloride 107 96 - 108 mmol/L [facility] Carbon Dioxide 29 22 - 29 mmol/L [facility] Anion Gap 12 12 - 20 [facility] Urea Nitrogen (BUN) 20(H) 9 - 16 mg/dL [facility] Creatinine, Serum 1.17 0.5 - 1.4 mg/dL [facility] Estimated Glomerular Filt Rate >60 [facility] Comment:Chronic Kidney Disea se: Estimated GFR < 60 mL/min/[id number] Kidney Disease: Estimated GFR < 15 mL/min/1.73m2 Glucose 104 60 - 115 mg/dL [facility] Calcium 9.3 8.4 - 10.2 mg/dL [facility] Blood Venous blood specimen / Unknown 03/25/2025 10:49 AM EDT 03/25/2025 11:24 AM EDT Missy Gonzalez MD LAB BLOOD ORDERABLES Final Result Performing Organization Address [facility]/ZIP Co de Phone Number [facility] [address] [place] [address] [phone] * TSH with Reflex to Free T4 (03/25/2025 10:49 AM EDT) TSH reflex Free T4 0.95 0.32 - 4.0 uIU/mL [facility] Blood 03/25/2025 10:4 9 AM EDT 03/25/2025 11:24 AM EDT us Missy Gonzalez MD LAB BLOOD ORDERABLES Final Result [facility] [address] [place] [address] [phone] documented in this encounter Visit Diagnoses Diagnosis Localized swelling of both lower legs- Primary Type 2 diabetes mellitus without complication, without long-term current use of insulin ([facility]) documented in this encounter Additional Health Concerns Assessment Noted Time PHQ-9 Depression Total Score: 0 03/06/20 25 11:41 AM EDT documented as of this encounter Care Teams Cooker Cleaner Relationship Specialty Start Date End Date Ciara Garcia MD [address] [place] [phone] PCP - General Family Medicine 06/04/19 documented as of this encounter
[2025-03-25 11:24] LABS: MANUAL DIFF FLAG NO
[2025-03-25 11:35] LABS: Hematocrit 44.2 % (42.0-52.0); Hemoglobin 14.4 g/dl (14.0-18.0); Imm Gran Abs Auto 0.16 X10*3/uL (0.00-0.03); Imm Gran Pct Auto 1.3 % (0.0-0.4); Lymphocytes Absolute Auto 3.2 X10*3/uL (1.2-4.9); Mean Corpuscular HGB Conc 32.6 g/dl (31.0-36.0); Mean Corpuscular Hemoglobin 31.2 pg (27.0-33.0); Mean Corpuscular Volume 95.7 fL (80.0-98.0); NRBC Abs Auto 0.000 X10*3/uL (0.0-0.012); NRBC Pct Auto 0.0 /100WBC (0.0-0.2); Platelet Count 213 X10*3/uL (160-400); Red Blood Count 4.62 X10*6/uL (4.60-5.80); White Blood Count 12.7 X10*3/uL (4.8-10.8)
[2025-03-25 11:37] LABS: Appearance Urine Clear; Glucose Urine UA Negative (Negative); PH 5.5 (5.0-9.0); Specific Gravity - Urine 1.025 (1.005-1.025)
[2025-03-25 11:55] LABS: Alanine Aminotransferase 45 U/L (0-40); Albumin Level 4.5 g/dL (3.5-5.0); Alkaline Phosphatase 112 U/L (39-117); Anion Gap 12 (12-20); Aspartate Amino Transferase 44 U/L (5-37); Blood Urea Nitrogen 20 mg/dL (9-16); Calcium 9.3 mg/dL (8.4-10.2); Carbon Dioxide 29 mmol/L (22-29); Chloride 107 mmol/L (96-108); Cholesterol 241 mg/dL (<200); Estimated Glomerular Filt Rate > 60; HDL Cholesterol 61 mg/dL (>40); Potassium 4.4 mmol/L (3.3-5.1); Sodium 144 mmol/L (135-145); Total Protein 6.7 g/dL (6.5-8.0); Triglycerides 374 mg/dL (<150)
[2025-03-25 12:19] LABS: Microalbum/Creatinine Ratio Ur 44.7 ug/mg cr (<30)
[2025-03-25 12:27] LABS: Microalbum/Creatinine Ratio Ur 45.3 ug/mg cr (<30)
[2025-03-25 12:35] LABS: Reflex LDLD? No
--- OUTSIDE RECORDS SUMMARY | 2025-03-25 12:42 | XMS_ITS | Encounter Summary ---
Author Organization [employer] Address [address] [place] [address] 7t [place] [address] Care Team Providers Care Steel Wheel Engraver Name Role Phone Ciara Garcia MD Primary Care Provide r Encounter Details Date Type Department Care Team ([facility] st Contact Info) Description 06/13/2022 Abstract [facility] [address] [place] [phone] Provider, MD Edwin Social History Tobacco Use [...] Description 04/03/2025 1:00 PM EDT Office Visit [facility] [address] [place] [address] [phone] 05/08/2025 10:00 AM EDT Clinical Support [address] [phone] Jasmina Coronado RN 05/28/2025 9:00 AM EST Office Visit [address] [phone] Ciara Garcia MD [address] [place] [address] 06/26/2025 2:00 PM EST Office Visit [facility] [address] [place], [place] [phone] Gabriela Castañeda, OD [address] [place], [place] [phone] documented as of this encounter Visit Diagnoses Not on filedocumented in this encounter Care Teams Steel Wheel Engraver Relationship Specialty Start Date End Date Ciara Garcia MD [address] [place], [place] [phone] PCP - General Family Medicine 06/04/19 documented as of this encounter
--- OUTSIDE RECORDS SUMMARY | 2025-03-25 12:42 | XMS_ITS | Encounter Summary ---
Author Organization [employer] Address [address] [place] [address] 7t [place] [address] Care Team Providers Care Convention Manager Name Role Phone Ciara Garcia MD Primary Care Provide r Reason for Visit * Reason Comments Med Refill Encounter Details Date Type Department Care Team (Late st Contact Info) Description 12/06/2022 Refill [facility] [address] [place] [address] Mary Trejo, MARKY Essential hypertension Social History Tobacco Use Types [...] Description 04/03/2025 1:00 PM EDT Office Visit [facility] [address] [place] [address] 05/08/2025 10:00 AM EDT Clinical Support [facility] [address] [place] [address] Jasmina Coronado, RN 05/28/2025 9:00 AM EST Office Visit [facility] [address] [place] [address] Ciara Garcia MD [address] [place] [address] 06/26/2025 2:00 PM EST Office Visit [facility] [address] [place] [address] Gabriela Castañeda, OD [address] [place] [address] documented as of this encounter Visit Diagnoses Diagnosis Essential hypertension Unspecified essential hypertension documented in this encounter Care Teams Convention Manager Relationship Specialty Start Date End Date Ciara Garcia MD [address] [place] [phone] PCP - General Family Medicine 06/04/19 documented as of this encounter
--- OUTSIDE RECORDS SUMMARY | 2025-03-25 12:42 | XMS_ITS | Encounter Summary ---
Author Organization [employer] Address [address] [facility] 7t [place] [address] Care Team Providers Care Sales Planning Analyst Name Role Phone Ciara Garcia MD Primary Care Provide r Reason for Visit * Reason Comments Med Refill Encounter Details Date Type Department Care Team ([facility] st Contact Info) Description 05/06/2024 Refill [facility] [address] [place] [address] Ciara Garcia MD [address] [place] [address] Cervicalgia; Tobacco dependence syndrome Social History Tobacco [...] Description 04/03/2025 1:00 PM EDT Office Visit [facility] [address] [place] [address] 05/08/2025 10:00 AM EDT Clinical Support [address] [address] Jasmina Coronado RN 05/28/2025 9:00 AM EST Office Visit [facility] [address] [place] [phone] Ciara Garcia MD [address] [place] [address] 06/26/2025 2:00 PM EST Office Visit [facility] [address] [place] [address] TarkaGabriela, OD [address] [place] [address] documented as of this encounter Visit Diagnoses Diagnosis Cervicalgia Tobacco dependence syndrome Tobacco use disorder documented in this encounter Additional Health Concerns Assessment Noted Time PHQ-9 Depression Total Score: 0 12/29/19 23 11:51 AM EDT documented as of this encounter Care Teams Sales Planning Analyst Relationship Specialty Start Date End Date Ciara Garcia MD [address] [place] [phone] PCP - General Family Medicine 06/04/19 documented as of this encounter
--- OUTSIDE RECORDS SUMMARY | 2025-03-25 12:42 | XMS_ITS | Encounter Summary ---
Author Organization [employer] Address [address] [place] [address] 7t [place] [address] Care Team Providers Care Pass Worker Name Role Phone Ciara Garcia MD Primary Care Provide r Reason for Visit * Reason Onset Date Comments Nurse Triage 01/20/2025 Encounter Details Date Type Department Care Team ([facility] st Contact Info) Description 01/20/2025 Telephone [facility] [address] [place] [address] Ciara Garcia MD [address] [place] [address] Nurse Triage Social History Tobacco Use Types [...] encounter Miscellaneous Notes * Telephone Encounter - Belem Simon RN - 01/20/2025 12:50 PM EDT Triage call Pt was seen in [facility] ED 01/17/25 and dx of RUDY and kidney stone was given. Pt reports pain with urination and left lower quadrant abdominal pain and flank pain. Pt is taking cefuroxime [id number] po bid x10 days as prescribed. Pt is taking oxycodone for pain as well. Pt reports drinking adequate liquids. Pt has urology apt scheduled for 01/28/25 and is aware of this. Pt is given follow up ED apt ASK apt with Dr. Peterson for 01/24/25 @ 330pm. Pt agrees with disposition and insurance is verified as active prior to booking. Protocol Used: Abdominal Pain - Male (Adult) Protocol-Based Disposition: See in Office or Video Visit within 2 Weeks Positive Triage Question: * Abdominal pain is a chronic symptom (recurrent or ongoing AND lasting > 4 weeks) * All higher-acuity triage questions were negative Care Advice Discussed: * Reassurance and Education - Stomach Pain * Rest * Drink Clear Fluids * Diet * Reasons To Call Back - Severe pain lasts over 1 hour - Constant pain lasts over 2 hours - Intermittent pains (comes and goes, cramps) lasts over 48 hours - You become worse * Telephone Encounter - Alfred Mckenna - 01/20/2025 11:44 AM EDT Patient calling to report ED visit on : Date: 01/17/2025 Hospital: [facility] Seen for: Kidney Stones Symptomatic Yes *if yes message should go to Triage Patient advised will forward to team nurse for follow up Contact at [phone] documented in this encounter Plan of Treatment Upcoming Encounters Date Type Department Care Team (Late st Contact Info) Description 04/03/2025 1:00 PM EDT Office Visit [facility] [address] [place] [phone] 05/08/2025 10:00 AM EDT Clinical Support [facility] [address] [place] [phone] Jasmina Coronado RN 05/28/2025 9:00 AM EST Office Visit [facility] [address] [place] [phone] Ciara Garcia MD [address] [place] [address] 06/26/2025 2:00 PM EST Office Visit [facility] [address] [place] [address] Gabriela Castañeda, OD [address] [place] [address] documented as of this encounter Visit Diagnoses Not on filedocumented in this encounter Additional Health Concerns Assessment Noted Time PHQ-9 Depression Total Score: 0 09/27/19 25 9:51 AM EDT documented as of this encounter Care Teams Pass Worker Relationship Specialty Start Date End Date Ciara Garcia MD [address] [place] [phone] PCP - General Family Medicine 06/04/19 documented as of this encounter
--- OUTSIDE RECORDS SUMMARY | 2025-03-25 12:42 | XMS_ITS | Encounter Summary ---
Author Organization [employer] Address [address] [facility] 7t [place] [address] Care Team Providers Care Circuit Court Magistrate Name Role Phone Ciara Garcia MD Primary Care Provide r Encounter Details Date Type Department Care Team (Late st Contact Info) Description 09/02/2022 Orders Only [facility] [address] [place] [address] Jason Hatfield MD [address] [place] [address] Social History Tobacco Use Types Packs/Day Years [...] Description 04/03/2025 1:00 PM EDT Office Visit [facility] [address] [place] [address] 05/08/2025 10:00 AM EDT Clinical Support [facility] [address] [place] [address] Jasmian Coronado, MARIBEL 05/28/2025 9:00 AM EST Office Visit [facility] [address] [place] [address] Ciara Garcia MD [address] [place] [address] 06/26/2025 2:00 PM EST Office Visit [facility] [address] [place] [address] Gabriela Castañeda OD [address] [place] [address] documented as of this encounter Procedures Procedure Name Priority Date/Time Associated Diagnosis Comments ALBUMIN, RANDOM URINE W/CREATININE Routine 06/05/2023 2:50 PM EST documented in this encounter Results * (ABNORMAL) Albumin, Random Urine W/Creatinine (06/05/2023 2:50 PM EST) Creatinine, Urine 301.05 mg/dL [facility] Microalbumin Urine 248.0 mg/L [facility] Microalbum Creatinine Ratio Ur 82.3(H) <30 ug/mg cr [facility] Comment:Albumin/Creatinine R atio Reference Ranges: Normal: < 30 ug/mg creatinine Microalbuminuria: 30 - 300 ug/mg creatinineClinical Albuminuria: > 300 ug/mg creatinine 06/05/2023 2:50 PM EST 06/05/2023 4:05 PM EST us Ciara Celaya MD LAB URINE ORDERABLES Final Result [facility] [address] [place] [address] [phone] documented in this encounter Visit Diagnoses Not on filedocumented in this encounter Care Teams Circuit Court Magistrate Relationship Specialty Start Date End Date Ciara Garcia MD [address] [place] [phone] PCP - General Family Medicine 06/04/19 documented as of this encounter
--- OUTSIDE RECORDS SUMMARY | 2025-03-25 12:42 | XMS_ITS | Encounter Summary ---
Author Organization [employer] Address 75 [facility] 7t [place] [address] Care Team Providers Care Hosiery Pairer Name Role Phone Ciara Garcia MD Primary Care Provide r Encounter Details Date Type Department Care Team ([facility] st Contact Info) Description 08/06/2024 Telephone [facility] [address] [place] [address] Ciara Garcia MD 230 [place] [address] Social History Tobacco Use Types Packs/Day Years [...] Description 04/03/2025 1:00 PM EDT Office Visit [facility] [address] [place] [address] 05/08/2025 10:00 AM EDT Clinical Support [facility] [address] [place] [address] Jasmina Coronado RN 05/28/2025 9:00 AM EST Office Visit [facility] [address] [place] [address] Ciara Garcia MD [address] [place] [address] 06/26/2025 2:00 PM EST Office Visit [facility] OPTOM[facility] [address] [place] [address] TarkaGabriela, OD [address] [place] [address] documented as of this encounter Visit Diagnoses Not on filedocumented in this encounter Additional Health Concerns Assessment Noted Time PHQ-9 Depression Total Score: 0 12/29/19 23 11:51 AM EDT documented as of this encounter Care Teams Hosiery Pairer Relationship Specialty Start Date End Date Ciara Garcia MD [address] [place] [phone] PCP - General Family Medicine 06/04/19 documented as of this encounter
--- OUTSIDE RECORDS SUMMARY | 2025-03-25 12:42 | XMS_ITS | Encounter Summary ---
Author Organization [employer] Address 75 [facility] 7t [place] [address] Care Team Providers Care Assistant Hall Director Name Role Phone Ciara Garcia MD Primary Care Provide r Reason for Visit * Reason Comments Med Refill Encounter Details Date Type Department Care Team ([facility] st Contact Info) Description 02/26/2024 Refill [facility] MED[facility]INE 230 [place] [address] Ciara Garcia MD 230 [place] [address] Cervicalgia; Tobacco dependence syndrome; Uncomplicated asthma, unspecified [...] Description 04/03/2025 1:00 PM EDT Office Visit [facility] [address] [place] [address] 05/08/2025 10:00 AM EDT Clinical Support [facility] MED[facility]INE [address] [place] [address] Jasmina Coronado RN 05/28/2025 9:00 AM EST Office Visit [facility] [address] [place] [address] Ciara Garcia MD [address] [place] [address] 06/26/2025 2:00 PM EST Office Visit [facility] OPTOMETRY [address] [place] [address] Gabriela Castañeda, OD 267 [place] [address] documented as of this encounter Visit Diagnoses Diagnosis Cervicalgia Tobacco dependence syndrome Tobacco use disorder Uncomplicated asthma, unspecified asthma severity, unspecified whether persistent documented in this encounter Additional Health Concerns Assessment Noted Time PHQ-9 Depression Total Score: 0 12/29/19 11:51 AM EDT documented as of this encounter Care Teams Assistant Hall Director Relationship Specialty Start Date End Date Ciara Garcia MD [address] [place] [phone] PCP - General Family Medicine 06/04/19 documented as of this encounter
--- OUTSIDE RECORDS SUMMARY | 2025-03-25 12:42 | XMS_ITS | Encounter Summary ---
Author Organization [employer] Address 75 [facility] 7t [place] [address] Care Team Providers Care Orthoptist Name Role Phone Ciara Garcia MD Primary Care Provide r Reason for Visit * Reason Onset Date Comments FYI 06/20/2024 Encounter Details Date Type Department Care Team ([facility] st Contact Info) Description 06/20/2024 Telephone [facility] 230 [place] [address] Ciara Garcia MD 230 [place] [address] FYI Social History Tobacco Use Types Packs/Day [...] from spouse requesting call back to inform P[employer] nurse that pt has received medication. documented in this encounter Plan of Treatment Upcoming Encounters Date Type Department Care Team (Late st Contact Info) Description 04/03/2025 1:00 PM EDT Office Visit [facility] 230 [place] [address] 05/08/2025 10:00 AM EDT Clinical Support [facility] [address] [place] [phone] Jasmina Coronado RN 05/28/2025 9:00 AM EST Office Visit [facility] 230 [place] [address] Ciara Garcia MD 230 [place] [address] 06/26/2025 2:00 PM EST Office Visit [facility] OPTOM[facility]RY 267 [place] [address] Gabriela Castañeda, WALDO 267 [place] [address] documented as of this encounter Visit Diagnoses Not on filedocumented in this encounter Additional Health Concerns Assessment Noted Time PHQ-9 Depression Total Score: 0 12/29/19 11:51 AM EDT documented as of this encounter Care Teams Orthoptist Relationship Specialty Start Date End Date Ciara Garcia MD 230 [place] [address] PCP - General Family Medicine 06/04/19 documented as of this encounter
--- OUTSIDE RECORDS SUMMARY | 2025-03-25 12:42 | XMS_ITS | Encounter Summary ---
Author Organization [employer] Address 75 [facility] 7t [place] [address] Care Team Providers Care Card Hand Name Role Phone Ciara Garcia MD Primary Care Provide r Reason for Visit * Reason Comments Med Refill Encounter Details Date Type Department Care Team ([facility] st Contact Info) Description 06/10/2024 Refill [facility]INE 230 [place] [address] Ciara Garcia MD 230 [place] [address] Essential hypertension Social History Tobacco Use Types [...] Description 04/03/2025 1:00 PM EDT Office Visit [facility] [address] [place] [address] 05/08/2025 10:00 AM EDT Clinical Support [facility] [address] [place] [phone] Jasmina Coronado, MARIBEL 05/28/2025 9:00 AM EST Office Visit [facility] [address] [place] [address] Ciara Garcia MD [address] [place] [address] 06/26/2025 2:00 PM EST Office Visit [facility] OPTOMETRY 267 [place] [address] TarGabriela vidal, OD 267 [place] [address] documented as of this encounter Visit Diagnoses Diagnosis Essential hypertension Unspecified essential hypertension documented in this encounter Additional Health Concerns Assessment Noted Time PHQ-9 Depression Total Score: 0 12/29/19 23 11:51 AM EDT documented as of this encounter Care Teams Card Hand Relationship Specialty Start Date End Date Ciara Garcia MD [address] [place] [phone] PCP - General Family Medicine 06/04/19 documented as of this encounter
--- OUTSIDE RECORDS SUMMARY | 2025-03-25 12:42 | XMS_ITS | Encounter Summary ---
Author Organization [employer] Address [address] [place] [address] 7t [place] [address] Care Team Providers Care Photo Technologist Name Role Phone Ciara Garcia MD Primary Care Provide r Reason for Visit * Reason Onset Date Comments Nurse Triage 02/09/2023 Encounter Details Date Type Department Care Team ([facility] st Contact Info) Description 02/09/2023 Telephone [facility]INE 230 [place] [address] Ciara Garcia MD 230 [place] [address] Nurse Triage Social History Tobacco Use Types [...] Pt. Had surgery done on neck at [facility] [place] a few months ago. I do see a report of CR Spine done but that was over 1 year ago on 11/29/21 where there was a metal probe in c3-c4 interspace. Pt. States he had surgery for that the next day at [facility] [place]. I do see surgical [...] Description 04/03/2025 1:00 PM EDT Office Visit [facility] [address] [place] [address] 05/08/2025 10:00 AM EDT Clinical Support [facility] [address] [place] [phone] Jasmina Coronado, RN 05/28/2025 9:00 AM EST Office Visit [facility] [address] [place] [address] Ciara Garcia MD 230 [place] [address] 06/26/2025 2:00 PM EST Office Visit [facility] OPTOM[facility] [address] [place], [place] [phone] Gabriela Castañeda, OD 267 [place] [address] documented as of this encounter Visit Diagnoses Not on filedocumented in this encounter Additional Health Concerns Assessment Noted Time PHQ-9 Depression Total Score: 0 12/29/19 23 11:51 AM EDT documented as of this encounter Care Teams Photo Technologist Relationship Specialty Start Date End Date Ciara Garcia MD [address] [place] [address] PCP - General Family Medicine 06/04/19 documented as of this encounter
--- OUTSIDE RECORDS SUMMARY | 2025-03-25 12:42 | XMS_ITS | Encounter Summary ---
Author Organization [employer] Address 75 [facility] 7t [place] [address] Care Team Providers Care Program Planner Name Role Phone Ciara Garcia MD Primary Care Provide r Reason for Visit * Reason Comments Med Refill Encounter Details Date Type Department Care Team ([facility] st Contact Info) Description 06/19/2024 Refill [facility] 230 [place] [address] Jason Hatfield MD 230 [place] [address] Tobacco dependence Social History Tobacco Use Types [...] Description 04/03/2025 1:00 PM EDT Office Visit [facility] [address] [place] [address] 05/08/2025 10:00 AM EDT Clinical Support [facility] MEDICINE [address] [place] [phone] Jasmina Coronado RN 05/28/2025 9:00 AM EST Office Visit [facility] MEDICINE [address] [place] [address] Ciara Garcia MD [address] [place] [address] 06/26/2025 2:00 PM EST Office Visit [facility] OPTOMETRY [address] [place] [address] TarkaGabriela, OD 267 [place] [address] documented as of this encounter Visit Diagnoses Diagnosis Tobacco dependence Tobacco use disorder documented in this encounter Additional Health Concerns Assessment Noted Time PHQ-9 Depression Total Score: 0 12/29/19 23 11:51 AM EDT documented as of this encounter Care Teams Program Planner Relationship Specialty Start Date End Date Ciara Garcia MD [address] [place] [phone] PCP - General Family Medicine 06/04/19 documented as of this encounter
--- OUTSIDE RECORDS SUMMARY | 2025-03-25 12:42 | XMS_ITS | Encounter Summary ---
Author Organization [employer] Address 75 [facility] 7t [place] [address] Care Team Providers Care Painter And Decorator Name Role Phone Ciara Garcia MD Primary Care Provide r Reason for Visit * Reason Comments Med Refill Encounter Details Date Type Department Care Team ([facility] st Contact Info) Description 06/01/2024 Refill [facility] MED[facility]INE 230 [place] [address] Ciaar Garcia MD 230 [place] [address] Cervicalgia; Tobacco dependence syndrome; Uncomplicated asthma, unspecified [...] Description 04/03/2025 1:00 PM EDT Office Visit [facility] [address] [place] [address] 05/08/2025 10:00 AM EDT Clinical Support [facility] [address] [place] [address] Jasmina Coronado RN 05/28/2025 9:00 AM EST Office Visit [facility] [address] [place] [address] Ciara Garcia MD [address] [place] [address] 06/26/2025 2:00 PM EST Office Visit [facility] OPTOMETRY [address] [place] [address] Gabriela Castañeda, OD 267 [place] [address] documented as of this encounter Visit Diagnoses Diagnosis Cervicalgia Tobacco dependence syndrome Tobacco use disorder Uncomplicated asthma, unspecified asthma severity, unspecified whether persistent documented in this encounter Additional Health Concerns Assessment Noted Time PHQ-9 Depression Total Score: 0 12/29/19 11:51 AM EDT documented as of this encounter Care Teams Painter And Decorator Relationship Specialty Start Date End Date Ciara Garcia MD [address] [place] [address] PCP - General Family Medicine 06/04/19 documented as of this encounter
--- OUTSIDE RECORDS SUMMARY | 2025-03-25 12:43 | XMS_ITS | Encounter Summary ---
Author Organization [employer] Address 75 [facility] 7t [place] [address] Care Team Providers Care Filbert Grower Name Role Phone Ciara Garcia MD Primary Care Provide r Reason for Visit * Reason Comments Med Refill Encounter Details Date Type Department Care Team ([facility] st Contact Info) Description 06/29/2023 Refill [facility] MED[facility]INE 230 [place] [address] Ciara Garcia MD 230 [place] [address] Tobacco dependence syndrome; Essential hypertension Social History [...] Description 04/03/2025 1:00 PM EDT Office Visit [facility] [address] [place] [address] 05/08/2025 10:00 AM EDT Clinical Support [address] [address] Jasmina Coronado, MARIBEL 05/28/2025 9:00 AM EST Office Visit [facility] MED[facility]INE [address] [place] [address] Ciara Garcia MD [address] [place] [address] 06/26/2025 2:00 PM EST Office Visit [facility] OPTOMETRY [address] [place] [address] TarkaGabriela, OD [address] [place] [address] documented as of this encounter Visit Diagnoses Diagnosis Tobacco dependence syndrome Tobacco use disorder Essential hypertension Unspecified essential hypertension documented in this encounter Additional Health Concerns Assessment Noted Time PHQ-9 Depression Total Score: 0 12/29/19 23 11:51 AM EDT documented as of this encounter Care Teams Filbert Grower Relationship Specialty Start Date End Date Ciara Garcia MD [address] [place] [address] PCP - General Family Medicine 06/04/19 documented as of this encounter
--- OUTSIDE RECORDS SUMMARY | 2025-03-25 12:43 | XMS_ITS | Clinical Summary ---
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 42 patch 08/25/19 24 Active loratadine (Claritin) 10 MG tabletIndicatio ns:Seasonal allergies TAKE 1 TABLET BY MOUTH EVERYDAY AT BEDTIME 90 tablet 1 04/26/20 24 Active albuterol (Ventolin HFA) 108 (90 Base) MCG/ACT inhalerIndicati ons:Uncomplicat ed asthma, unspecified asthma severity, unspecified whether persistent INHALE 2 PUFFS BY MOUTH EVERY 4 TO 6 HOURS IF NEEDED FOR BRONCOSPASM OR SHORTNESS OF BREATH 18 g 2 06/20/20 24 Active nicotine polacrilex (Nicotine Mini) 4 MG lozengeIndicati ons:Continuous dependence on cigarette smoking Dissolve 1 lozenge (4 mg) in the mouth every 2 (two) hours if needed for smoking cessation. 100 lozenge 08/30/19 25 Active metFORMIN (Glucophage) 500 MG tabletIndicatio ns:Type 2 diabetes mellitus without complication, without long-term current use of insulin (CMS/HCC) Take 1 tablet (500 mg) by mouth with breakfast and with evening meal. 60 tablet 09/27/192025 Active Diclofenac Sodium 1 % gelIndications: Cervicalgia APPLY 2 GRAMS TO AFFECTED AREA TWICE A DAY 100 g 3 10/05/19 25 Active polycarbophil (FiberCon) 625 MG tabletIndicatio ns:Constipation , unspecified constipation type Take 1/2-1 tab once daily 30 tablet 3 11/01/19 25 Active finasteride (Proscar) 5 MG tabletIndicatio ns:Benign prostatic hyperplasia with urinary frequency Take 1 tablet (5 mg) by mouth Once per day. Do not crush, chew, or split. 30 tablet 11/23/19 25 2025 Active Aspirin Low Dose 81 MG EC tablet TAKE 1 TABLET BY MOUTH EVERY DAY 90 tablet 3 11/27/19 25 Active Vitamin D-[address] 25 MCG (1000 UT) tabletIndicatio ns:Vitamin D deficiency TAKE 1 TABLET (25 MCG) BY MOUTH ONCE PER DAY. 90 tablet 1 12/13/19 25 Active cyanocobalamin (Vitamin B-12) 1000 MCG tabletIndicatio ns:B12 deficiency Take 1 tablet (1,000 mcg) by mouth Once per day. 90 tablet 1 12/13/19 25 Active simvastatin (Zocor) 40 MG tablet TAKE 1 TABLET BY MOUTH EVERY DAY IN THE EVENING 90 tablet 3 12/31/19 25 Active lisinopril 10 MG tabletIndicatio ns:Essential hypertension TAKE 1 TABLET BY MOUTH EVERY DAY IN THE MORNING 90 tablet 1 12/31/19 25 Active tamsulosin (Flomax) 0.4 MG 24 hr capsule TAKE 1 CAPSULE BY MOUTH EVERY DAY IN THE MORNING 90 capsule 12/31/19 25 Active buPROPion SR (Wellbutrin SR) 150 MG 12 hr tabletIndicatio ns:Tobacco dependence syndrome TAKE 1 TABLET BY MOUTH TWICE A DAY. DO NOT CRUSH, SPLIT, OR CHEW. 180 tablet 12/31/19 25 Active ibuprofen 800 MG tabletIndicatio ns:Chronic low back pain with bilateral sciatica, unspecified back pain laterality TAKE 1 TABLET BY MOUTH EVERY 8 HOURS WITH FOOD 90 tablet 01/30/20 25 Active naloxone (Narcan) 4 mg/0.1 mL nasal sprayIndication s:Chronic low back pain with bilateral sciatica, unspecified back pain laterality Administer 1 spray (4 mg) into affected nostril(s) if needed for opioid reversal. 2 each 3 02/12/20 25 Active oxyCODONE ER (OxyCONTIN) 80 MG 12 hr tabletIndicatio ns:Other chronic pain Take 1 tablet (80 mg) by mouth every 8 (eight) hours for 28 days. Do not start before March 07, 2025. 84 tablet 03/07/20 25 2024 Active Tirzepatide (Mounjaro) 2.5 MG/0.5ML solution auto-injectorIn dications:Type 2 diabetes mellitus without complication, without long-term current use of insulin ([facility]) Inject 2.5 mg under the skin 1 (one) time per week. 2 mL 2 03/06/20 25 Active baclofen (Lioresal) 10 MG tabletIndicatio ns:Cervicalgia TAKE 1 TABLET (10 MG) BY MOUTH EVERY 8 (EIGHT) HOURS IF NEEDED FOR MUSCLE SPASMS. 60 tablet 1 03/07/20 25 Active furosemide (Lasix) 20 MG tabletIndicatio ns:Localized swelling of both lower legs Take 1 tablet (20 mg) by mouth Once per day for 5 days. 5 tablet 03/25/20 25 2024 Active baclofen (Lioresal) 10 MG tabletIndicatio ns:Cervicalgia TAKE 1 TABLET (10 MG) BY MOUTH EVERY 8 (EIGHT) HOURS IF NEEDED FOR MUSCLE SPASMS. 60 tablet 1 09/25/19 25 2024 Discontinued(R eorder (will not trigger notification to Pharmacy)) Tirzepatide-Horace g[employer] (Zepbound) 2.5 MG/0.5ML solution auto-injectorIn dications:Type 2 diabetes mellitus without complication, without long-term current use of insulin ([facility]),Class 2 severe obesity due to excess calories with serious comorbidity and body mass index (BMI) of 35.0 to 35.9 in adult ([facility]),Diast olic dysfunction,VIPUL H (nonalcoholic steatohepatitis ),Obstructive sleep apnea syndrome Inject 0.5 mL (2.5 mg) under the skin 1 (one) time per week. 2 mL 12/31/19 25 2024 Discontinued oxyCODONE ER (OxyCONTIN) 80 MG 12 hr tabletIndicatio ns:Other chronic pain Take 1 tablet (80 mg) by mouth every 8 (eight) hours for 28 days. Do not start before February 07, 2025. 84 tablet 02/08/20 25 2024 Discontinued(R eorder (will not trigger notification to Pharmacy)) Active Problems Problem Noted Date Diagnosed Date Long-term current use of opiate analgesic 2024 UTI symptoms 01/24/2025 Class 2 severe obesity due t o excess calories with serious comorbidity and body mass index (BMI) of 35.0 to 35.9 in adult 12/30/2024 Assessment & Plan (12/30/2024 10:25 AM EDT): Extensive counseling about diet and exercise done today I will prescribe for him Zepbound 2.5 mg weekly, phentermine is contraindicated in his case in light of his cardiovascular history Diabetes mellitus due to und erlying condition with diabetic autonomic neuropathy, unspecified whether surveyor oil well directional insulin use 12/30/2024 Assessment & Plan (12/30/2024 10:26 AM EDT): Diabetes is: almost at goal - Lab Results Component Value Date HGBA1C 6.9 (A) 12/30/2024 HGBA1C 6.7 (H) 09/04/2024 HGBA1C 7.0 (A) 06/21/2024 - Lab Results Component Value Date MICROALBUR 248.0 06/05/2023 CREATININE 1.12 10/31/2024 -Changes: Today I am adding to his medication ALP 1 - Diabetic eye exam: Up to date - Diabetic foot exam: Up-to-date - Continue lifestyle modifications - Continue current medications - Follow up: 3 months Urinary frequency 11/22/2024 Severe obesity (BMI 35.0-39.9) with comorbidity 11/21/2024 Screening for lung cancer 09/26/2024 Allergic rhinitis 02/22/2024 Other specified disorders of nose and nasal sinu ses 02/22/2024 Tobacco dependence due to cigarettes 02/22/2024 Cervicalgia 01/30/2024 Assessment & Plan (01/30/2024 4:17 [...] Vitamin D deficiency 01/30/2024 Kidney stones 08/25/2023 Assessment & Plan (01/24/2025 5:11 PM EDT): Continue to follow up with urology Cacosmia 07/20/2023 JOHNSTON (nonalcoholic steatohepatitis) 07/20/2023 Assessment & Plan (12/30/2024 10:26 AM EDT): Counseling about healthy diet and exercise on today, today I also added Zepbound to his medications that will be beneficial for his condition Assessment & Plan (07/20/2023 10:16 AM EST): Counseling about healthy diet done GI referral done US reviewed with patient Elevated LFTs 06/06/2023 Steatosis of liver 06/06/2023 Preventative health care 05/15/2023 Assessment & Plan (05/15/2023 3:49 PM EDT): See HPI Bunion 02/10/2023 Neck pain 02/10/2023 Numbness of upper limb 02/10/2023 Hypoventilation 02/10/2023 Diabetes 12/28/2022 Assessment & Plan (03/25/2025 10:35 AM EDT): Orders: TSH with Reflex to Free T4; Future Assessment & Plan (09/26/2024 12:13 PM EDT): [...] modifications - Continue with same interventions - Hypersomnia 08/25/2022 Neuropathy of both feet 08/25/2022 Onychomycosis 08/25/2022 Chronic low back pain 06/16/2022 Acute kidney injury 03/24/2021 Acute nontraumatic kidney injury 03/24/2021 Hypertension 11/01/2018 Assessment & [...] radiculopathy 03/28/2018 Obstructive sleep apnea syndrome 03/28/2018 Overview (10/24/2024): On CPAP, follows w/ sleep medicine Assessment & Plan (12/30/2024 10:27 AM EDT): Continue to follow-up with sleep medicine, continue to use CPAP, today also will prescribe for him Zepbound weight loss will be extremely beneficial in his case Assessment & Plan (10/25/2023 2:00 PM EDT): [...] Mixed sleep apnea 07/20/2016 Diastolic dysfunction 01/21/2015 Assessment & Plan (12/30/2024 10:24 AM EDT): Continue to follow-up with cardiology Weight reduction and exercise was recommended Today I will prescribe for him Zepbound, weight reduction will be beneficial for him, phentermine is contraindicated in this patient in light of his history of of heart failure Hyperlipidemia 04/03/2012 Assessment & Plan (06/25/2024 4:58 PM EST): Today extensive discussion was done about life style modifications I advise healthy diet (low calorie) and cardiovascular exercise Degeneration of lumbosacral intervertebral disc 01/23/2012 Asthma 01/19/2012 Chronic obstructive lung disease 01/19/2012 Assessment & Plan (12/30/2024 10:26 AM EDT): Stable continue with same interventions Assessment & Plan (05/15/2023 3:47 PM EDT): [...] 02/10/2023 02/10/2023 Severe chronic obstructive pulmonary disease 3 02/10/2023 Type 2 diabetes mellitus 02/10/2023 Hypertensive disorder 02/10/20232022 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 Hypercholesterolemia 08/25/2022 023 Impaired fasting glucose 12/09/2014 Encounters Date Type Department Care Team Description 03/25/2025 10:20 AM EDT Office Visit [facility] [address] [place] [phone] Missy Gonzalez MD Localized swelling of both lower legs (Primary Dx); Type 2 diabetes mellitus without complication, without long-term current use of insulin ([facility]) 03/25/2025 Results Follow-Up [facility] [address] [place] [phone] Audrey Roblero ANP Urinalysis Complete, Albumin, Random Urine W/Creatinine 03/25/2025 Orders Only [facility] [address] [place] [address] Ciara Garcia MD 03/25/2025 Travel 03/25/2025 Telephone [facility] [address] [place] [address] [phone] Ciara Garcia MD Nurse Triage 03/07/2025 Refill [facility] [address] [place], [place] [phone] Ciara Garcia MD Cervicalgia 03/06/2025 Orders Only [facility] [address] [place] [address] Ciara Garcia MD Type 2 diabetes mellitus without complication, without long-term current use of insulin ([facility]) (Primary Dx) 03/06/2025 Travel 03/05/2025 Refill [facility] [address] [place] [address] Ciara Garcia MD Other chronic pain 03/05/2025 Telephone [facility] [address] [place] [address] Ciara Garcia MD chart prep 03/04/2025 Refill [facility] [address] [place] [address] Ciara Garcia MD Tobacco dependence syndrome 02/11/2025 10:00 AM EDT Clinical Support [facility] [address] [place] [address] Jasmina Coronado, MARIBEL Long-term current use of opiate analgesic (Primary Dx) 02/11/2025 Refill [facility] [address] [place] [address] Jasmina Coronado RN Chronic low back pain with bilateral sciatica, unspecified back pain laterality 02/11/2025 Travel 02/06/2025 Telephone [facility] [address] [place] [address] Ciara Garcia MD Nurse Triage 02/04/2025 Orders Only GENERIC EXTERNAL DATA DEPARTMENT Provider, Generic External Data 02/03/2025 Orders Only [facility] External Provider, [facility] 02/03/2025 Refill [facility] [address] [place] [address] Ciara Garcia MD Other chronic pain 01/28/2025 Refill [facility] [address] [place] [address] Jeannette Marquez MD Chronic low back pain with bilateral sciatica, unspecified back pain laterality 01/28/2025 Refill [facility] [address] [place] [address] Ciara Garcia MD Tobacco dependence syndrome 01/27/2025 Orders Only GENERIC EXTERNAL DATA DEPARTMENT Provider, Generic External Data 01/24/2025 3:30 PM EDT Office Visit [facility] [address] [place] [phone] Ciara Garcia MD UTI symptoms (Primary Dx); Kidney stones 01/24/2025 Travel 01/20/2025 Telephone [facility] [address] [place] [address] Ciara Garcia MD Nurse Triage 01/14/2025 Orders Only [facility] External Provider, [facility] 01/14/2025 Telephone [facility] [address] [place] [address] Ciara Garcia MD NTTS 01/13/2025 Telephone [facility] [address] [place] [phone] Ciara Garcia MD Nurse Triage 01/08/2025 Refill [facility] [address] [place] [phone] Ciara Garcia MD Other chronic pain 12/30/2024 9:45 AM EDT Office Visit [facility] [address] [place] [phone] Ciara Garcia MD Diabetes mellitus due to underlying condition with diabetic autonomic neuropathy, unspecified whether surveyor oil well directional insulin use ([facility]) (Primary Dx); Type 2 diabetes mellitus without complication, without long-term current use of insulin ([facility]); Class 2 severe obesity due to excess calories with serious comorbidity and body mass index (BMI) of 35.0 to 35.9 in adult ([facility]); Diastolic dysfunction; JOHNSTON (nonalcoholic steatohepatitis); Obstructive sleep apnea syndrome; Chronic obstructive pulmonary disease, unspecified COPD type ([facility]); Dietary counseling; Exercise counseling 12/30/2024 Refill [facility] [address] [place] [address] Jeannette Marquez MD Tobacco dependence syndrome; Chronic low back pain with bilateral sciatica, unspecified back pain laterality 12/30/2024 Refill [facility] [address] [place] [address] Ciara Garcia MD Essential hypertension; Tobacco dependence syndrome 12/30/2024 Telephone [facility] [address], [place] [phone] Ciara Garcia MD Prior Authorization ([facility] Request: Zepbound) 12/30/2024 Travel 12/25/2024 Refill [facility] [address], [place] [phone] Ciara Garcia MD Chronic low back pain with bilateral sciatica, unspecified back pain laterality 12/23/2024 Telephone [facility] [address], [place] [phone] Ciara Garcia MD Chart Prep from Last 3 Months Immunizations Immunization Administration Dates Next Due Hep B, adult [...] Mass Index 36.06 03/25/2025 10:07 AM EDT Plan of Treatment Upcoming Encounters Date Type Department Care Team (Late st Contact Info) Description 04/03/2025 1:00 PM EDT Office Visit [facility] [address] [place] [address] 05/08/2025 10:00 AM EDT Clinical Support [facility] [address] [place] [phone] Jasmina Coronado RN 05/28/2025 9:00 AM EST Office Visit [facility] [address] [place] [phone] Ciara Garcia MD [address] [place] [address] 06/26/2025 2:00 PM EST Office Visit [facility] [address] [place] [address] Gabriela Castañeda, OD [address] [place] [address] Health Maintenance Due Date Last Done Comments CT Colonography 1958 Colonoscopy 1958 Colorectal Cancer Screening 1958 FIT DNA/Cologuard 1958 FIT 1958 FOBT 1958 Sigmoidoscopy 1958 Hepatitis A Vaccines (1 of 2 - Risk 2-dose series) 1977 COVID-19 Vaccine ( season) 2025 06/21/2024, 06/12/2023, 05/04/2022, Additional history exists Influenza Vaccine (#1) 2025 , 05/15/2023, 05/04/2022, Additional history exists Eye Exam 06/12/2025 06/12/2023, 05/18, 06/12/2023, Additional history exists Diabetes: Hemoglobin A1C 07/01/2025 025, 09/04/2024, 06/21/2024, Additional history exists Alcohol/Substance Use Screening 08/30/2025 08/30/2024 SDOH Screening 09/19/2025 09/19/2024 Diabetes: Foot Exam 10/04/2025 10/04/2024, Lung Cancer Screening 02/05/2026 02/05/2025 Depression Screening 03/06/2026 03/06/2025, 03/06/20 Diabetes: Urine Protein Screening 03/25/2026 03/25/2025, 03/25/2025, 06/05/2023 Lipid Panel 03/25/2026 03/25/2025, 05/18, 10/07/2020 Tobacco Screening 03/25/2026 03/25/2025 DTaP/Tdap/Td Vaccines (3 - Td or Tdap) 12/29/2027 12/28/2017, 06/12/2013, 06/28/2005 Hepatitis B Vaccines Completed 01/07/2008, 08/02/2007, 06/22/2007 RSV Patients and Patients Aged 60 years or older Completed 07/20/2023 Zoster Vaccines Completed 09/21/2023, 07/20/2023 Hepatitis C Screening Completed 12/19/2023 , 10/07/2020, 02/04/2020 Pneumococcal Vaccine: 50+ Years Completed 06/21/2024, 11/04/2010 HIB Vaccines Aged Out No longer eligi ble based on patient's age to complete this topic HPV Vaccines Aged Out No longer eligi ble based on patient's age to complete this topic IPV Vaccines Aged Out No longer eligi ble based on patient's age to complete this topic Meningococcal B Vaccine Aged Out No l onger eligible based on patient's age to complete [...] Procedure Name Priority Date/Time Associated Diagnosis Comments LIPID PANEL WITH REFLEX TO DIRECT LDL Routine 03/25/2025 10:49 AM EDT HEPATIC FUNCTION PANEL Routine 03/25/2025 10:49 AM EDT Localized swelling of both lower legs CBC WITH AUTO DIFFERENTIAL Routine 03/25/2025 10:49 AM EDT Localized swelling of both lower legs ALBUMIN, RANDOM URINE W/CREATININE Routine 03/25/2025 10:49 AM EDT Localized swelling of both lower legs BASIC METABOLIC PANEL Routine 03/25/2025 10:49 AM EDT Localized swelling of both lower legs TSH W/REFLEX TO FT4 Routine 03/25/2025 1 0:49 AM EDT Localized swelling of both lower legs Type 2 diabetes mellitus without complication, without long-term current use of insulin ([facility]) ALBUMIN, RANDOM URINE W/CREATININE Routine 03/25/2025 10:49 AM EDT Primary hypertension URINALYSIS, COMPLETE Routine 03/25/2025 10:49 AM EDT Bilirubinuria POCT HERBER-14 URINE DRUG SCREEN Routine 02/11/2025 10:45 AM EDT Long-term current use of opiate analgesic LDCT LUNG SCREENING Routine 02/05/2025 9 :07 AM EDT STONE ANALYSIS W/ IMAGE Routine 02/04/2025 8:26 AM EDT GROSS EXAM WITHOUT SLIDES Routine 02/04/2025 8:26 AM EDT FL GUIDANCE IN OR Routine 02/04/2025 7:4 5 AM EDT GLUCOSE, WHOLE BLOOD Routine 02/04/2025 6:30 AM EDT CULTURE, URINE, ROUTINE Routine 01/27/2025 7:22 AM EDT POCT URINALYSIS DIPSTICK Routine 01/24/2025 4:00 PM EDT UTI symptoms Kidney stones CULTURE, URINE, ROUTINE Routine 01/24/2025 12:00 AM EDT UTI symptoms XR CHEST 1 VIEW Routine 01/17/2025 7:19 AM EDT FL GUIDANCE IN OR Routine 01/15/2025 3:1 5 PM EDT URINALYSIS, COMPLETE, WITH REFLEX TO CULTURE Routine 01/14/2025 11:[address] ABDOMEN PELVIS W CONTRAST Routine 01/14/2025 10:24 PM EDT LACTIC ACID LAB USE ONLY Routine 01/14/2025 10:06 PM EDT XR ACUTE ABDOMEN SERIES Routine 01/14/2025 8:33 PM EDT POCT GLYCATED HEMOGLOBIN, TOTAL Routine 12/30/2024 9:26 AM EDT Type 2 diabetes mellitus without complication, without long-term current use of insulin (CMS/HCC) POCT GLUCOSE Routine 12/30/2024 9:23 AM EDT Type 2 diabetes mellitus without complication, without long-term current use of insulin (CMS/HCC) HEPATITIS PANEL, GENERAL Routine 12/19/2023 9:17 AM EDT from Last 3 Months or Most Recently Relevant to Health Maintenance Results * TSH with Reflex to Free T4 (03/25/2025 10:49 AM EDT) TSH reflex Free T4 0.95 0.32 - 4.0 uIU/mL [facility] Blood 03/25/2025 10:4 9 AM EDT 03/25/2025 11:24 AM EDT us Missy Gonzalez MD LAB BLOOD ORDERABLES Final Result Performing Organization Address City/[facility]/ZIP Co de Phone Number [facility] [address] [place] [address] [phone] * (ABNORMAL) Lipid Panel with Reflex to Direct LDL (03/25/2025 10:49 AM EDT) Triglycerides 374(H) <150 mg/dL [facility] Comment:Desirable Triglyceri de: less than 150 mg/dLBorderline High Triglyceride 150-199 mg/dLHigh Triglyceride: 200-499 mg/dLVery High Triglyceride: greater than or equal to 5OO mg/dL Cholesterol 241(H) <200 mg/dL [facility] Comment:Desirable Cholestero l: less than 200 mg/dLBorderline High Cholesterol: 200-239 mg/dLHigh Cholesterol: greater than 239 mg/dL LDL Cholesterol Calculated 106(H) <100 mg/dL [facility] Comment:Desirable LDL: less than 100 mg/dLNear Optimal/Above Optimal LDL: 110- 129 mg/dLBorderline High LDL: 130-159 mg/dLHigh LDL: 160-189 mg/dLVery High LDL: greater than or equal to 190 mg/dL HDL Cholesterol 61 >40 mg/dL [facility] Comment:Desirable HDL: great er than 40 mg/dL Note: This HDL assay may give artificially low results in patients with liver disease. 03/25/2025 10:4 9 AM EDT 03/25/2025 11:24 AM EDT us Ciara Celaya MD LAB BLOOD ORDERABLES Final Result [facility] [address] [place] [address] [phone] * (ABNORMAL) Albumin, Random Urine W/Creatinine (03/25/2025 10:49 AM EDT) Only the most recent of2 resultswithin the time period is included. Pathologist [facility] Creatinine, Urine 172.12 mg/dL [facility] Microalbumin Urine 78.0 mg/L [facility] Microalbum Creatinine Ratio Ur 45.3(H) <30 ug/mg cr [facility] Comment:Albumin/Creatinine R atio Reference Ranges: Normal: < 30 ug/mg creatinine Microalbuminuria: 30 - 300 ug/mg creatinineClinical Albuminuria: > 300 ug/mg creatinine Urine 03/25/2025 10:4 9 AM EDT 03/25/2025 12:14 PM EDT us Missy Gonzalez MD LAB URINE ORDERABLES Final Result Performing Organization Address City/State/[facility] Co de Phone Number [facility] [address] [place] [phone] * (ABNORMAL) CBC auto differential (03/25/2025 10:49 AM EDT) Pathologist [facility] White Blood Count 12.7(H) 4.8 - 10.8 X10*3/uL [facility] Red Blood Count 4.62 4.60 - 5.80 X10*6/uL [facility] Hemoglobin 14.4 14.0 - 18.0 g/dl [facility] Hematocrit 44.2 42.0 - 52.0 % [facility] Mean Corpuscular Volume 95.7 80.0 - 98.0 fL [facility] Mean Corpuscular Hemoglobin 31.2 27.0 - 33.0 pg [facility] Mean Corpuscular HGB Conc 32.6 31.0 - 36.0 g/dl [facility] Red Cell Distribution Width 13.9 11.0 - 16.0 % [facility] Platelet Count 213 160 - 400 X10*3/uL [facility] Mean Platelet Volume 10.7 9.4 - 12.4 fL [facility] Neutrophils Percent Auto 62.2 45 - 73 % [facility] Imm Gran Pct Auto 1.3(H) 0.0 - 0.4 % [facility] Lymphocytes Percent Auto 25.3 20 - 40 % [facility] Monocytes Percent Auto 7.2 2 - 11 % [facility] Eosinophils Percent Auto 3.1 0 - 4 % [facility] Basophils Percent Auto 0.9 0 - 2 % [facility] NRBC Pct Auto 0.0 0.0 - 0.2 /100WBC [facility] Neutrophils Absolute Auto 7.9 2.0 - 8.3 x10*3/uL [facility] Imm Gran Abs Auto 0.16(H) 0.00 - 0.03 X10*3/uL [facility] Lymphocytes Absolute Auto 3.2 1.2 - 4.9 X10*3/uL [facility] Monocytes Absolute Auto 0.9 0.1 - 1.2 X10*3/uL [facility] Eosinophils Absolute Auto 0.4 0.0 - 0.4 X10*3/uL [facility] Basophils Absolute Auto 0.1 0.0 - 0.2 X10*3/uL [facility] NRBC Abs Auto 0.000 0.0 - 0.012 X10*3/uL [facility] Blood Venous blood specimen / Unknown 03/25/2025 10:49 AM EDT 03/25/2025 11:23 AM EDT us Missy Gonzalez MD LAB BLOOD ORDERABLES Final Result [facility] [address] [place] [phone] * Urinalysis Complete (03/25/2025 10:49 AM EDT) Color Urine Yellow [facility] Appearance Urine Clear [facility] PH 5.5 5.0 - 9.0 [facility] Glucose Urine UA Negative Negative mg/dL [facility] Urine Blood Negative Negative [facility] Specific [place] - Urine 1.025 1.005 - 1.025 [facility] Urine Protein Trace Neg-Trace mg/dL [facility] Urine Ketones Negative Negative mg/dL [facility] Nitrite Urine Negative Negative [facility] Leukocyte Esterase Urine Negative Negative [facility] RBC Urine 0-2 0 - 2 /HPF [facility] Urine WBC 0-5 0 - 5 /HPF [facility] Urine Squamous Epithelial Cell 0-2 0 - 2 /HPF [facility] [facility] Urine Bacteria None Seen None Seen [facility] Hyaline Casts, Urine 3-5 0 - 2 /LPF [facility] Urine (Urine, Random) 03/25/2025 10:49 AM EDT 03/25/2025 11:17 AM EDT Audrey RAMIREZ LAB URINE ORDERABLES Final Resul t Performing Organization Address City/[facility]/ZIP Co de Phone Number [facility] [address] [place] [phone] * (ABNORMAL) Hepatic Function Panel (03/25/2025 10:49 AM EDT) Bilirubin, Total 0.4 0.0 - 1.0 mg/dL [facility] Bilirubin, Direct 0.1 0.0 - 0.5 mg/dL [facility] Aspartate Amino Transferase 44(H) 5 - 37 U/L [facility] Alanine Aminotransferase 45(H) 0 - 40 U/L [facility] Total Protein 6.7 6.5 - 8.0 g/dL [facility] Albumin Level 4.5 3.5 - 5.0 g/dL [facility] Alkaline Phosphatase 112 39 - 117 U/L [facility] Blood Venous blood specimen / Unknown 03/25/2025 10:49 AM EDT 03/25/2025 11:24 AM EDT us Missy Gonzalez MD LAB BLOOD ORDERABLES Final Result Performing Organization Address City/[facility]/ZIP Co de Phone Number [facility] [address] [place] [phone] * (ABNORMAL) Basic Metabolic Panel (03/25/2025 10:49 AM EDT) Pathologist [facility] Sodium 144 135 - 145 mmol/L [facility] Potassium 4.4 3.3 - 5.1 mmol/L [facility] Chloride 107 96 - 108 mmol/L [facility] Carbon Dioxide 29 22 - 29 mmol/L [facility] Anion Gap 12 12 - 20 [facility] Urea Nitrogen (BUN) 20(H) 9 - 16 mg/dL [facility] Creatinine, Serum 1.17 0.5 - 1.4 mg/dL [facility] Estimated Glomerular Filt Rate >60 [facility] Comment:Chronic Kidney Disea se: Estimated GFR < 60 mL/min/[id number] Kidney Disease: Estimated GFR < 15 mL/min/1.73m2 Glucose 104 60 - 115 mg/dL [facility] Calcium 9.3 8.4 - 10.2 mg/dL [facility] Blood Venous blood specimen / Unknown 03/25/2025 10:49 AM EDT 03/25/2025 11:24 AM EDT Missy Gonzalez MD LAB BLOOD ORDERABLES Final Result [facility] [address] [place] [phone] * POCT HERBER-14 Urine Drug Screen (02/11/2025 10:45 AM EDT) Pathologist [facility] THC Negative Negative Cocaine Screen, Urine Negative Negative Opiate Screen, Urine Negative Negative Methamphetamine Screen Urine Negative Negative Amphetamine Screen, Urine Negative Negative Benzodiazepines Screen, Urine Negative Negative Barbiturate Screen, Urine Negative Negative Methadone Screen, Urine Negative Negative Buprenophine Screen, Urine Negative Negative TCA, Urine Negative Negative MDMA Urine Negative Negative ng/mL Oxycodone Screen, Urine Positive Negative Phencyclidine (PCP), Urine Negative Negative Propoxyphene, Urine Negative Negative Fentanyl, Urine Negative Negative Urine Urine specimen obtained by clean catch procedure / Unknown 02/11/2025 10:45 AM EDT Narrative Ivonne Jasmina, RN - 02/11/2025 10:45 AM EDT UTOX cup Lot#[id number] Exp. 04/22/26 Internal Pass Control Ciara Celaya MD POINT OF CARE TEST EN TER/EDIT ORDERABLES Final Result * CT Lung Screening Low dose (02/05/2025 9:07 AM EDT) Anatomical Region Laterality Modality Lung Computed Tomogra phy 02/05/2025 9:07 AM EDT Narrative 02/05/2025 9:08 AM EDT [place] [address] CT Scan Report Signed Patient: Efraín Bravo Jr MR#: [id number] : 1960 Acct:[id number] Age/Sex: 64 / M ADM Date: 02/03/25 Loc: HO.CT Attending Dr: Neena Colunga PA-C Ordering Physician: Neena Colunga PA-C Date of Service: 02/03/25 Procedure(s): CT lung screening Accession Number(s): [id number] cc: Ciara Garcia MD; Neena Colunga PA-C Report Number: [id number]: Total DLP = 77.00 mGy-cm CLINICAL HISTORY: F17.210 - Nicotine dependence, cigarettes, uncomplicated CT lung cancer screening (LDCT) Comparison: CR/SR - XR CHEST 1V - 01/17/25 08:[address]/SR - ABDOMEN ABD_PELVIS_IV_CONTRAST (ADULT) - 01/14/25 21:32 EDT Technique: Axial CT images of the chest using low-dose technique. Referring provider counseled the patient on shared decision-making for LDCT screening. Additional counseling was provided on smoking cessation. Effective radiation dose total: DLP 65 mGycm, CTDIvol 1.7 mGy. Findings: Moderate pulmonary emphysema. Lentiform nodule along the right minor fissure measuring 0.7 cm likely due to an intrapulmonary lymph node. Scattered subsegmental atelectasis and scarring. Juxtapleural nodule along the right major fissure measuring 0.6 cm likely representing an intrapulmonary lymph node. There are pulmonary micro nodules. There is a 6 mm solid right lower lobe pulmonary nodule. Multiple benign-appearing intrapulmonary lymph nodes. Mild coronary artery atherosclerotic vascular calcifications. Cholecystectomy. Multiple additional smaller intrapulmonary lymph nodes. Category 1: Normal; continue annual screening Category 2: Benign appearance or behavior, continue annual screening Category 3: Probably benign, [address] recommended Category 4A: Suspicious, [address] recommended; may consider PET/CT Category 4B: Suspicious, Additional diagnostics and/or tissue sampling recommended Category 4X: Suspicious, Additional diagnostics and/or tissue sampling recommended Category 0: Recalls (incomplete screen due to Incomplete coverage, Noise, Respiratory motion, Expiration, Obscured by acute abnormality) IMPRESSION: There is a 6 mm solid right lower lobe pulmonary nodule. Multiple benign-appearing intrapulmonary lymph nodes. LungRADS 3 - Probably benign: Recommend low dose screening Chest CT in 6 months. ##L3# This document has been electronically signed by: Nicolas Taylor DO on 02/05/2025 09:07:11 Dictated By: Nicolas Taylor DO Signed By: <Electronically signed by Nicolas Taylor DO in OV> 02/05/25907 DD/ 6 TD/TT: 02/05/25906 Machine Molder Squeeze: Procedure Note Donotuseinterpreter, Image - 02/05/[address] [address] [address] Scan Report Signed Patient: Efraín Bravo [facility]#: [id number] : 9Acct:[id number] Age/Sex: 64 / MADM Date: 02/03/25 Loc: HO.CT Attending Dr: Neena Colunga PA-C Ordering Physician: Neena Colunga PA-C Date of Service: 02/03/25 Procedure(s): CT lung screening Accession Number(s): [id number] cc: Ciara Garcia MD; Neena Colunga PA-C Report Number: [id number]: Total DLP = 77.00 mGy-cm CLINICAL HISTORY: F17.210 - Nicotine dependence, cigarettes, uncomplicated CT lung cancer screening (LDCT) Comparison: CR/SR - XR CHEST 1V - 01/17/25 08:[address]/SR - ABDOMEN ABD_PELVIS_IV_CONTRAST (ADULT) - 01/14/25 21:32 EDT Technique: Axial CT images of the chest using low-dose technique. Referring provider counseled the patient on shared decision-making for LDCT screening. Additional counseling was provided on smoking cessation. Effective radiation dose total: DLP 65 mGycm, CTDIvol 1.7 mGy. Findings: Moderate pulmonary emphysema. Lentiform nodule along the right minor fissure measuring 0.7 cm likely due to an intrapulmonary lymph node. Scattered subsegmental atelectasis and scarring. Juxtapleural nodule along the right major fissure measuring 0.6 cm likely representing an intrapulmonary lymph node. There are pulmonary micro nodules. There is a 6 mm solid right lower lobe pulmonary nodule. Multiple benign-appearing intrapulmonary lymph nodes. Mild coronary artery atherosclerotic vascular calcifications. Cholecystectomy. Multiple additional smaller intrapulmonary lymph nodes. Category 1: Normal; continue annual screening Category 2: Benign appearance or behavior, continue annual screening Category 3: Probably benign, [address] recommended Category 4A: Suspicious, [address] recommended; may consider PET/CT Category 4B: Suspicious, Additional diagnostics and/or tissue sampling recommended Category 4X: Suspicious, Additional diagnostics and/or tissue sampling recommended Category 0: Recalls (incomplete screen due to Incomplete coverage, Noise, Respiratory motion, Expiration, Obscured by acute abnormality) IMPRESSION: There is a 6 mm solid right lower lobe pulmonary nodule. Multiple benign-appearing intrapulmonary lymph nodes. LungRADS 3 - Probably benign: Recommend low dose screening Chest CT in 6 months. ##L3# This document has been electronically signed by: Nicolas Taylor DO on 02/05/2025 09:07:11 Dictated By: Nicolas Taylor DO Signed By: <Electronically signed by Nicolas Taylor DO in OV> 02/05/25907 DD/ 6 TD/TT: 02/05/25906 Machine Molder Squeeze: [facility] External Provider IMG CT PROCEDURES Final Result * Gross Exam without slides (02/04/2025 8:26 AM EDT) 02/04/2025 8:26 AM EDT 02/04/2025 9:25 AM EDT Narrative [facility] - 02/05/2025 10:08 AM EDT ----- ------- Name: ShellyEfraín Jr Age/Sex: 64/M : 1960 Unit#: [id number] Attend Dr: Vicky Johnson MD Re02/04/25 Status: [facility] Location: [facility] Disch: ----- ------- SPEC : [id number] RECD: 02/04/25 STATUS: SILVANA CARRIZALES NUM: [id number] CRYSTAL: 02/04/25 [facility] DR: Vicky Johnson MD ENTERED: 02/04/25 SP TYPE: Surgical OTHR DR: Ciara Garcia MD ORDERED: GO Diagnosis Left ureteral stone (removal): Calculus material identified; macroscopic description only. Comment: The entire specimen was sent for chemical analysis. Please see the laboratory portion of the EMR for the outside report from [facility]. Clinical History Kidney stone Material Received Left ureteral stone Gross Description Received fresh labeled left ureteral stone are three hard de los santos-brown calculi ranging from 0.25-0.35 cm with scant blood, forwarded to [facility] for chemical analysis. No soft tissue is identified. Gross description only. CEDS IHC S/NG Disclaimer NOTE: Unless otherwise stated, all tissue is formalin-fixed and paraffin-embedded. Some or all of the immunohistochemical tests reported herein may have been developed and their performance characteristics determined by [facility]. They have not been cleared or approved by the U.S. Food and Drug Administration (FDA). However, the FDA has determined that such clearance or approval is not necessary. This laboratory is certified under the Clinical Laboratory Improvement Amendments of 1988 (CLIA) as qualified to perform high complexity clinical laboratory testing. Copies To: Vicky Johnson MD [facility] [address] [place] [address] [address] [place] [address] [email or web address] CONTINUED ON NEXT PAGE ----- ------- Name: ShellyEfraínsammie Pabon Jr Age/Sex: 64/M : 1960 Unit#: [id number] Attend Dr: Vicky Johnson MD Re02/04/25 Status: [facility] Location: [facility] Disch: ----- ------- SPEC : [id number] RECD: 02/04/25 STATUS: SILVANA CARRIZALES NUM: [id number] CRYSTAL: 02/04/25 [facility] DR: Vicky Johnson MD ENTERED: 02/04/25 SP TYPE: Surgical OTHR DR: Ciara Garcia MD ORDERED: GO Copies To: (Continued) Ciara Garcia MD [address] [address] ----- ------- Signed (signature on file) Sheyla Coburn 02/05/25 1008 ----- ------- END OF REPORT us Generic External Data Provider LAB BLOOD ORDERAB LES Final Result [facility] [address] [place] [phone] * Stone Analysis with Image (02/04/2025 8:26 AM EDT) Component 1 SEE NOTE [facility] Comment:Calcium Oxalate Dixon hydrate (Whewellite) 90%Uric Acid 10% Stone Weight 0.027 g [facility] Comment:Formalin, surgical g el, tape adhesive or transport mediainterfere with the analytical procedure. Follow up testingwith the UroRisk(R) Panel is suggested for affected samples,if clinically indicated.This test was developed and its analytical performancecharacteristics have been determined by [facility].It has not been cleared or approved by the FDA. This assayhas been validated pursuant to the CLIA regulations and isused for clinical purposes.THIS TEST WAS PERFORMED AT:[employer] [id number] [facility] [place] [address]EIMNPSHALONDA MOELLER MD,PHD,AROLDO Stone Source KIDNEY [facility] 02/04/2025 8:26 AM EDT 02/04/2025 9:25 AM EDT Narrative [facility] - 02/12/2025 7:03 PM EDT [id number] Ciara Celaya MD LAB BLOOD ORDERABLES Final Result [facility] [address] [place] [address] [phone] * FL Guidance in OR (02/04/2025 7:45 AM EDT) Only the most recent of2 resultswithin the time period is included. Anatomical Region Laterality Modality X-Ray Angiograph y 02/04/2025 7:45 AM EDT Narrative 02/04/2025 8:48 AM EDT [address] [address] Fluoroscopy Report Signed Patient: Efraín Bravo Jr MR#: [id number] : 1960 Acct:[id number] Age/Sex: 64 / M ADM Date: 02/04/25 Loc: HO.[facility] Attending Dr: Vicky Johnson MD Ordering Physician: Vicky Johnson MD Date of Service: 02/04/25 Procedure(s): FL guidance in OR Accession Number(s): [id number] cc: Vicky Johnson MD; Ciara Garcia MD EXAMINATION: FL GUIDANCE ONLY HISTORY: stone left COMPARISON: Correlation is made with a CT of the abdomen with contrast dated 01/14/2025. TECHNIQUE: Fluoroscopy time: 8.2 seconds. Cumulative Dose: 4.52 mGy. Images: 2. FINDINGS: Fluoroscopic spot films demonstrate a wire, likely in the distal left ureter. FL/FL guidance in OR IMPRESSION: Fluoroscopy during procedure. Please see procedure report for additional information. Electronically signed by: Tanner Wells MD 02/04/2025 08:45 AM EDT RP Dictated By: Tanner Wells MD Signed By: <Electronically signed by Tanner Wells MD in OV> 02/04/2545 DD/ 4 TD/TT: 02/04/25826 Machine Molder Squeeze: Procedure Note Donotuseinterpreter, Image - 02/04/2025 [place] [address] Fluoroscopy Report Signed Patient: Efraín Bravo [facility]#: [id number] : 9Acct:[id number] Age/Sex: 64 / MADM Date: 02/04/25 Loc: .[facility] Attending Dr: Vicky Johnson MD Ordering Physician: Vicky Johnson MD Date of Service: 02/04/25 Procedure(s): FL guidance in OR Accession Number(s): [id number] cc: Vicky Johnson MD; Ciara Garcia MD EXAMINATION: FL GUIDANCE ONLY HISTORY: stone left COMPARISON: Correlation is made with a CT of the abdomen with contrast dated 01/14/2025. TECHNIQUE: Fluoroscopy time: 8.2 seconds. Cumulative Dose: 4.52 mGy. Images: 2. FINDINGS: Fluoroscopic spot films demonstrate a wire, likely in the distal left ureter. FL/FL guidance in OR IMPRESSION: Fluoroscopy during procedure. Please see procedure report for additional information. Electronically signed by: Tanner Wells MD 02/04/2025 08:45 AM EDT RP Dictated By: Tanner Wells MD Signed By: <Electronically signed by Tanner Wells MD in OV> 02/04/2545 DD/ 4 TD/TT: 02/04/25826 Machine Molder Squeeze: [facility] External Provider IMG IR PROCEDURES Final Result * (ABNORMAL) Glucose, Whole Blood (02/04/2025 6:30 AM EDT) Glucose, Whole Blood 124(H) 60 - 115 mg/dL [facility] Comment:METER #: [id number] 02/04/2025 6:30 AM EDT 02/04/2025 6:33 AM EDT Generic External Data Provider LAB BLOOD ORDERAB LES Final Result Performing Organization Address [facility] Co de Phone Number [facility] [address] [place] [phone] * Culture, Urine, Routine (01/27/2025 7:22 AM EDT) Only the most recent of2 resultswithin the time period is included. Urine Urine specimen obtained by clean catch procedure / Unknown 01/27/2025 7:22 AM EDT 01/27/2025 4:17 PM EDT Comment:CC Narrative [facility] - 01/29/2025 11:04 AM EDT Urine Culture No growth. Specimen Source: Urine clean catch Generic External Data Provider LAB MICROBIOLOGY - GENERAL ORDERABLES Final Result Performing Organization Address City/[facility] Co de Phone Number [facility] [address] [place] [phone] * (ABNORMAL) POCT urinalysis dipstick manually resulted (01/24/2025 4:00 PM EDT) Color, UA Yellow Clarity, UA Clear Glucose, UA Negative Bilirubin, UA Negative Ketones, UA Negative Spec Grav, UA 1.020 Blood, UA Positive(A) Negative, None Detected pH, UA 7.0 Protein, UA Moderate Urobilinogen, UA 0.2 Leukocytes, UA Trace Negative, Rare, Trace Nitrite, UA Negative Negative, None Detected Appearance, UA clear QC Media Lot # [id number] Lot# Expiration Date [id number] Urine 01/24/2025 4:00 PM EDT Ciara Celaya MD POINT OF CARE TEST EN TER/EDIT ORDERABLES Final Result * XR Chest 1 View (01/17/2025 7:19 AM EDT) Anatomical Region Laterality Modality Chest Radiographic Lilibeth ging 01/17/2025 7:19 AM EDT Narrative 01/20/2025 7:24 AM EDT [place] [address] XRay Report Signed Patient: Efraín Bravo Jr MR#: [id number] : 1960 Acct:[id number] Age/Sex: 64 / M ADM Date: 01/14/25 Loc: [facility] 472-[address]: Geremias Wu MD Ordering Physician: Geremias Wu MD Date of Service: 01/17/25 Procedure(s): XR chest 1V Accession Number(s): [id number] cc: Ciara Garcia MD; Geremias Wu MD EXAMINATION: XR CHEST CLINICAL INFORMATION: hypoxia COMPARISON: None available. TECHNIQUE: Frontal view of the chest was obtained. FINDINGS: Lungs are hypoexpanded but clear of acute process. The heart size and pulmonary vascularity is normal. No gross bony abnormality seen. Previously seen spinal electrode is not visualized this time XR/XR chest 1V IMPRESSION: Unremarkable chest exam. Electronically signed by: Kelton Loera MD 01/20/2025 07:21 AM EDT Dictated By: Kelton Loera MD Signed By: <Electronically signed by Kelton Loera MD in OV> 01/20/25720 DD/ 8 TD/TT: 01/17/25 0832 Machine Molder Squeeze: SHERINE Procedure Note Donotuseinterpreter, Image - 01/20/[address] [address] XRay Report Signed Patient: Efraín Bravo [facility]#: [id number] : 9Acct:[id number] Age/Sex: 64 / MADM Date: 01/14/25 Loc: [facility] 472-[address]: Geremias Wu MD Ordering Physician: Geremias Wu MD Date of Service: 01/17/25 Procedure(s): XR chest 1V Accession Number(s): [id number] cc: Ciara Garcia MD; Geremias Wu MD EXAMINATION: XR CHEST CLINICAL INFORMATION: hypoxia COMPARISON: None available. TECHNIQUE: Frontal view of the chest was obtained. FINDINGS: Lungs are hypoexpanded but clear of acute process. The heart size and pulmonary vascularity is normal. No gross bony abnormality seen. Previously seen spinal electrode is not visualized this time XR/XR chest 1V IMPRESSION: Unremarkable chest exam. Electronically signed by: Kelton Loera MD 01/20/2025 07:21 AM EDT Dictated By: Kelton Loera MD Signed By: <Electronically signed by Kelton Loera MD in OV> 01/20/25720 DD/ 8 TD/TT: 01/17/2532 Machine Molder Squeeze: [facility] External Provider IMG XR PROCEDURES Final Result * (ABNORMAL) Urinalysis, Complete, with Reflex to Culture (01/14/2025 11:14 PM EDT) Color Urine Yellow [facility] Appearance Urine Cloudy [facility] PH 5.5 5.0 - 9.0 [facility] Glucose Urine UA Negative Negative mg/dL [facility] Urine Blood Large (3+)(A) Negative [facility] Specific [place] - Urine >=1.030(H) 1.005 - 1.025 [facility] Urine Protein Negative Neg-Trace mg/dL [facility] Urine Ketones Negative Negative mg/dL [facility] Nitrite Urine Negative Negative [facility] Leukocyte Esterase Urine Trace(A) Negative [facility] RBC Urine 11-20(A) 0 - 2 /HPF [facility] Urine WBC 6-10 0 - 5 /HPF [facility] Urine Squamous Epithelial Cell 0-2 0 - 2 /HPF [facility] Urine Bacteria None Seen None Seen [facility] Hyaline Casts, Urine 3-5 0 - 2 /LPF [facility] 01/14/2025 11:1 4 PM EDT 01/14/2025 11:17 PM EDT Narrative [facility] - 01/14/2025 11:45 PM EDT Urine, Clean Catch us Generic External Data Provider LAB URINE ORDERAB LES Final Result Performing Organization Address City/State/[facility] Co de Phone Number [facility] [address] [place] [phone] * CT Abdomen Pelvis w/ Contrast (01/14/2025 10:24 PM EDT) Anatomical Region Laterality Modality Body, Pelvis, Abdomen Computed T omography 01/14/2025 10:2 4 PM EDT Narrative 01/14/2025 10:26 PM EDT [address] [address] [address] Scan Report Signed Patient: Efraín Bravo Jr MR#: [id number] : 1960 Acct:[id number] Age/Sex: 64 / M ADM Date: 01/14/25 Loc: HO.ED Attending Dr: Ordering Physician: Nicolas Fay MD Date of Service: 01/14/25 Procedure(s): CT abdomen pelvis w IV con Accession Number(s): [id number] cc: Ciara Garcia MD; Nicolas Fay MD Report Number: [id number]: Total DLP = 747.00 mGy-cm CLINICAL HISTORY: severe distension, no BM x [address] abdomen and pelvis with contrast Comparison: US/AK/SR - US ABDOMEN COMP W ELASTOGRAPHY - 07/14/23 09:28 EST Findings: No consolidation or effusion. Emphysema identified within the bilateral lung bases. The gallbladder is surgically absent. The solid organs are within normal limits. No right hydronephrosis or right hydroureter. The right kidney enhances normally. 9 mm obstructing calculus present at the distal left ureter, near the left ureterovesicular junction, with mild upstream left hydroureter and mild left hydronephrosis. There is mildly delayed enhancement of the left kidney with disproportionate left perinephric fat stranding. No bowel obstruction, pneumoperitoneum, or pneumatosis. Pelvic contents unremarkable. Small, fat containing bilateral inguinal hernias are present. There is borderline bladder wall thickening. The bladder is underdistended. Normal appendix. No acute fracture visualized. Multilevel degenerative disc disease/vacuum disc phenomenon present at the thoracolumbar spine. IMPRESSION: 9 mm obstructing calculus present at the distal left ureter, near the left ureterovesicular junction. There is mild left hydroureter with mild left hydronephrosis. There is mildly delayed enhancement of the left kidney, consistent with obstructive uropathy. Borderline bladder wall thickening. This may be related to bladder underdistention or mild cystitis. May consider correlation with urinalysis results for further evaluation. No bowel obstruction. Lhnk-qk-davoyhnl stool burden visualized at the transverse colon. This document has been electronically signed by: Dawson Barakat MD on 01/14/2025 22:24:24 Dictated By: Dawson Barakat MD Signed By: <Electronically signed by Dawson Barakat MD in OV> 01/14/252224 DD/ 23 TD/TT: 01/14/252223 Machine Molder Squeeze: Procedure Note Donotuseinterpreter, Image - 01/14/[address] [address] [address] Scan Report Signed Patient: Efraín Bravo [facility]#: [id number] : 9Acct:[id number] Age/Sex: 64 / MADM Date: 01/14/25 Loc: HO.ED Attending Dr: Ordering Physician: Nicolas Fay MD Date of Service: 01/14/25 Procedure(s): CT abdomen pelvis w IV con Accession Number(s): [id number] cc: Ciara Garcia MD; Nicolas Fay MD Report Number: [id number]: Total DLP = 747.00 mGy-cm CLINICAL HISTORY: severe distension, no BM x [address] abdomen and pelvis with contrast Comparison: US/AK/SR - US ABDOMEN COMP W ELASTOGRAPHY - 07/14/23 09:28 EST Findings: No consolidation or effusion. Emphysema identified within the bilateral lung bases. The gallbladder is surgically absent. The solid organs are within normal limits. No right hydronephrosis or right hydroureter. The right kidney enhances normally. 9 mm obstructing calculus present at the distal left ureter, near the left ureterovesicular junction, with mild upstream left hydroureter and mild left hydronephrosis. There is mildly delayed enhancement of the left kidney with disproportionate left perinephric fat stranding. No bowel obstruction, pneumoperitoneum, or pneumatosis. Pelvic contents unremarkable. Small, fat containing bilateral inguinal hernias are present. There is borderline bladder wall thickening. The bladder is underdistended. Normal appendix. No acute fracture visualized. Multilevel degenerative disc disease/vacuum disc phenomenon present at the thoracolumbar spine. IMPRESSION: 9 mm obstructing calculus present at the distal left ureter, near the left ureterovesicular junction. There is mild left hydroureter with mild left hydronephrosis. There is mildly delayed enhancement of the left kidney, consistent with obstructive uropathy. Borderline bladder wall thickening. This may be related to bladder underdistention or mild cystitis. May consider correlation with urinalysis results for further evaluation. No bowel obstruction. Tnta-bp-jssmpldy stool burden visualized at the transverse colon. This document has been electronically signed by: Dawson Barakat MD on 01/14/2025 22:24:24 Dictated By: Dawson Barakat MD Signed By: <Electronically signed by Dawson Barakat MD in OV> 01/14/252224 DD/ 23 TD/TT: 01/14/252223 Machine Molder Squeeze: [facility] External Provider IMG CT PROCEDURES Final Result * Lactic Acid (01/14/2025 10:06 PM EDT) Lactic Acid 1.5 0.5 - 2.0 mmol/L [facility] 01/14/2025 10:0 6 PM EDT 01/14/2025 10:12 PM EDT Generic External Data Provider LAB BLOOD ORDERAB LES Final Result Performing Organization Address City/State/[facility] Co de Phone Number [facility] [address] [place] [phone] * XR ACUTE ABDOMEN SERIES (01/14/2025 8:33 PM EDT) Anatomical Region Laterality Modality Abdomen Radiographic Lilibeth ging 01/14/2025 8:33 PM EDT Narrative 01/14/2025 8:34 PM EDT [address] [address] XRay Report Signed Patient: Efraín Bravo Jr MR#: [id number] : 1960 Acct:[id number] Age/Sex: 64 / M ADM Date: 01/14/25 Loc: HO.ED Attending Dr: Ordering Physician: Nicolas Fay MD Date of Service: 01/14/25 Procedure(s): XR acute abdomen series Accession Number(s): [id number] cc: Ciara Garcia MD; Nicolas Fay MD CLINICAL HISTORY: abs distension, pain 2 view abdomen Comparison: None Findings: No abnormal bowel dilation to suggest obstruction. No abnormal air-fluid levels or evidence of free intraperitoneal air. No abnormal calcifications. Right upper quadrant surgical clips. Degenerative change of the spine and hips. IMPRESSION: Nonspecific bowel gas pattern. No definite bowel obstruction. This document has been electronically signed by: Thomas Carter DO on 01/14/2025 20:33:51 Dictated By: Thomas Carter MD Signed By: <Electronically signed by Thomas Carter MD in OV> 01/14/252033 DD/ 32 TD/TT: 01/14/252032 Machine Molder Squeeze: Procedure Note Donotuseinterpreter, Image - 01/14/[address] [address] XRay Report Signed Patient: Efraín Bravo [facility]#: [id number] : 1960cct:[id number] Age/Sex: 64 / MADM Date: 01/14/25 Loc: .ED Attending Dr: Ordering Physician: Nicolas Fay MD Date of Service: 01/14/25 Procedure(s): XR acute abdomen series Accession Number(s): [id number] cc: Ciara Garcia MD; Nicolas Fay MD CLINICAL HISTORY: abs distension, pain 2 view abdomen Comparison: None Findings: No abnormal bowel dilation to suggest obstruction. No abnormal air-fluid levels or evidence of free intraperitoneal air. No abnormal calcifications. Right upper quadrant surgical clips. Degenerative change of the spine and hips. IMPRESSION: Nonspecific bowel gas pattern. No definite bowel obstruction. This document has been electronically signed by: Thomas Carter DO on 01/14/2025 20:33:51 Dictated By: Thomas Carter MD Signed By: <Electronically signed by Thomas Carter MD in OV> 01/14/252033 DD/ 32 TD/TT: 01/14/252032 Machine Molder Squeeze: [facility] External Provider IMG XR PROCEDURES Final Result * (ABNORMAL) POCT HGB A1C (12/30/2024 9:26 AM EDT) Hemoglobin A1C 6.9(A) 4.0 - 6.0 % QC Media Lot # [id number] Lot# Expiration Date 2,020, Blood 12/30/2024 9:26 AM EDT Ciara Celaya MD POINT OF CARE TEST EN TER/EDIT ORDERABLES Final Result * (ABNORMAL) POCT Glucose (12/30/2024 9:23 AM EDT) Glucose Blood, POC 17(A) 60 - 200 mg/dL Comment:FASTING QC Media Lot # [id number] Lot# Expiration Date , Blood Capillary blood specimen / Unknown 12/30/2024 9:23 AM EDT Ciara Celaya MD POINT OF CARE TEST EN TER/EDIT ORDERABLES Final Result * Hepatitis Panel, General (12/19/2023 9:17 AM EDT) Hepatitis A IgM Nonreactive Nonreactive [facility] Comment:IgM antibodies to PALENCIA V not detected; does not exclude earlyacute or recovered HAV infection. ~Hepatitis B Surface Antibody REACTIVE Nonreactive [facility] Comment:REACTIVE: > 11.99 mI U/mL Hepatitis B Core Antibody Nonreactive Nonreactive [facility] Hepatitis C Antibody Nonreactive Nonreactive [facility] Comment:Antibodies to HCV no t detected; does not exclude early acuteHCV infection. Hepatitis B Surface Ag Negative Negative [facility] 12/19/2023 9:17 AM EDT 12/19/2023 9:17 AM EDT Generic External Data Provider LAB BLOOD ORDERAB LES Final Result [facility] [address] [place] [address] [phone] from Last 3 Months or Most Recently Relevant to Health Maintenance Insurance MEDICARE [facility] Care Teams Surgical Instrument Repair Specialist Relationship Specialty Start Date End Date Ciara Garcia MD [address] [place] [phone] PCP - General Family Medicine 06/04/19
--- OUTSIDE RECORDS SUMMARY | 2025-03-25 12:43 | XMS_ITS | Clinical Summary ---
Author Organization [facility] Address [address] [place] [address] Phone Care Team Providers Care Chisel Mortiser Operator Name Role Phone Ciara Garcia MD [...] night Active cholecalciferol (VITAMIN D-3) 1.25 MG (62690 UT) tablet Take 50,000 Units by mouth [...] Medicaid [place] Care Teams Chisel Mortiser Operator Relationship Specialty Start Date End Date Ciara Garcia MD [address] [place] [phone] PCP - General Internal Medicine 02/03/21
--- OUTSIDE RECORDS SUMMARY | 2025-03-25 12:43 | XMS_ITS | Encounter Summary ---
Author Organization [employer] Address [address] [facility] 7t [place] [address] Care Team Providers Care Auto Clutch Specialist Name Role Phone Ciara Garcia MD Primary Care Provide r Reason for Visit * Reason Comments Med Refill Encounter Details Date Type Department Care Team ([facility] st Contact Info) Description 06/29/2023 Refill [facility] [address] [place] [address] Vianney Odom, MARKY [address] [place] [address] Chronic low back pain with bilateral sciatica, [...] Description 04/03/2025 1:00 PM EDT Office Visit [facility] [address] [place] [address] 05/08/2025 10:00 AM EDT Clinical Support [facility] [address] [place] [address] Jasmina Coronado RN 05/28/2025 9:00 AM EST Office Visit [facility] [address] [place] [address] Ciara Garcia MD [address] [place] [address] 06/26/2025 2:00 PM EST Office Visit [facility] [address] [place] [address] TarkaGabriela, OD [address] [place] [address] documented as of this encounter Visit Diagnoses Diagnosis Chronic low back pain with bilateral sciatica, unspecified back pain laterality documented in this encounter Additional Health Concerns Assessment Noted Time PHQ-9 Depression Total Score: 0 12/29/19 11:51 AM EDT documented as of this encounter Care Teams Auto Clutch Specialist Relationship Specialty Start Date End Date Ciara Garcia MD [address] [place] [phone] PCP - General Family Medicine 06/04/19 documented as of this encounter
--- OUTSIDE RECORDS SUMMARY | 2025-03-25 12:43 | XMS_ITS | Encounter Summary ---
Author Organization [employer] Address [address] [place] [address] 7t [place] [address] Care Team Providers Care Die Drawing Checker Name Role Phone Ciara Garcia MD Primary Care Provide r Reason for Visit * Reason Comments Med Refill Encounter Details Date Type Department Care Team (Late st Contact Info) Description 08/12/2022 Refill [facility] [address] [place] [phone] Jeannette Marquez MD [address] [place] [address] Chronic low back pain with bilateral sciatica, [...] Description 04/03/2025 1:00 PM EDT Office Visit [facility] [address] [place] [address] [phone] 05/08/2025 10:00 AM EDT Clinical Support [facility] [address] [place] [phone] Jasmina Coronado RN 05/28/2025 9:00 AM EST Office Visit [facility] [address] [place] [address] Ciara Garcia MD [address] [place] [address] 06/26/2025 2:00 PM EST Office Visit [facility] [address] [place], [place] [phone] Gabriela Castañeda, OD [address] [place], [place] [phone] documented as of this encounter Visit Diagnoses Diagnosis Chronic low back pain with bilateral sciatica, unspecified back pain laterality- Primary documented in this encounter Care Teams Die Drawing Checker Relationship Specialty Start Date End Date Ciara Garcia MD [address] [place], [place] [phone] PCP - General Family Medicine 06/04/19 documented as of this encounter
--- OUTSIDE RECORDS SUMMARY | 2025-03-25 12:43 | XMS_ITS | Encounter Summary ---
Author Organization [employer] Address [address] [facility] 7t [place] [address] Care Team Providers Care Tube Backer Name Role Phone Ciara Garcia MD Primary Care Provide r Reason for Visit * Reason Onset Date Comments Nurse Triage 03/25/2025 Encounter Details Date Type Department Care Team ([facility] st Contact Info) Description 03/25/2025 Telephone [facility] MED[facility]INE [address] [place] [address] Ciara Garcia MD [address] [place] [address] Nurse Triage Social History Tobacco Use Types [...] Telephone Encounter - Madison Hoffman RN - 03/25/2025 8:48 AM EDT Called pt. He states that both his feet are swollen and traveling up to ankles. No redness, no weeping in feet. Pt. States slight SOB but, he states it is regular due to his COPD. Pt. Denies chest pain, no redness or lumps on leg. Advised to come into [facility] walk in this am to be seen. Pt. States he will go now. Protocol Used: Leg Swelling and Edema (Adult) Protocol-Based Disposition: See in Office or Video Visit Today- Pt. Will go to [facility] walk in. Positive Triage Question: * Moderate swelling of both ankles (e.g., swelling extends up to the knees) AND new-onset or getting worse * All higher-acuity triage questions were negative Care Advice Discussed: * Reassurance and Education - Heat Edema * How to Decrease Ankle and Lower Leg Swelling * Reasons To Call Back * Telephone Encounter - Tank Ruvalcaba - 03/25/2025 8:40 AM EDT Symptom: Leg Swelling - Not From Injury Outcome: Schedule an appointment to be seen within 24 hours Reason: Caller denied all higher acuity questions Please contact pt at [phone]. documented in this encounter Plan of Treatment Upcoming Encounters Date Type Department Care Team (Late st Contact Info) Description 04/03/2025 1:00 PM EDT Office Visit [facility] [address] [place] [address] 05/08/2025 10:00 AM EDT Clinical Support [facility] MEDICINE [address] [place] [address] Jasmina Coronado, MARIBEL 05/28/2025 9:00 AM EST Office Visit [facility] MED[facility] [address] [place] [address] Ciara Garcia MD [address] [place] [address] 06/26/2025 2:00 PM EST Office Visit [facility] OPTOMETRY [address] [place] [address] Tarka, Gabriela, OD [address] [place] [address] documented as of this encounter Visit Diagnoses Not on filedocumented in this encounter Additional Health Concerns Assessment Noted Time PHQ-9 Depression Total Score: 0 03/06/20 25 11:41 AM EDT documented as of this encounter Care Teams Tube Backer Relationship Specialty Start Date End Date Ciara Garcia MD [address] [place] [phone] PCP - General Family Medicine 06/04/19 documented as of this encounter
--- OUTSIDE RECORDS SUMMARY | 2025-03-25 12:43 | XMS_ITS | Encounter Summary ---
Author Organization [employer] Address [address] [facility] 7t [place] [address] Care Team Providers Care Handstitching Machine Armhole Feller Name Role Phone Ciara Garcia MD Primary Care Provide r Reason for Visit * Reason Comments Med Refill Encounter Details Date Type Department Care Team ([facility] st Contact Info) Description 06/29/2023 Refill [facility] [address] [place] [address] Jamel Duffy AGNP Chronic low back pain [...] Description 04/03/2025 1:00 PM EDT Office Visit [facility] [address] [place] [address] 05/08/2025 10:00 AM EDT Clinical Support [facility] [address] [place] [address] Jasmina Coronado, MARIBEL 05/28/2025 9:00 AM EST Office Visit [facility] MED[facility] [address] [place] [address] Ciara Garcia MD [address] [place] [address] 06/26/2025 2:00 PM EST Office Visit [facility] OPTOM[facility]RY [address] [place] [address] Tarka, Gabriela, OD [address] [place] [address] documented as of this encounter Visit Diagnoses Diagnosis Chronic low back pain with bilateral sciatica, unspecified back pain laterality documented in this encounter Additional Health Concerns Assessment Noted Time PHQ-9 Depression Total Score: 0 12/29/19 23 11:51 AM EDT documented as of this encounter Care Teams Handstitching Machine Armhole Feller Relationship Specialty Start Date End Date Ciara Garcia MD [address] [place] [phone] PCP - General Family Medicine 06/04/19 documented as of this encounter
--- OUTSIDE RECORDS SUMMARY | 2025-03-25 12:43 | XMS_ITS | Encounter Summary ---
Author Organization [employer] Address [address] [place] [address] 7t [place] [address] Care Team Providers Care Behavioral Intervention Specialist Name Role Phone Ciara Garcia MD Primary Care Provide r Reason for Visit * Reason Comments Med Refill Encounter Details Date Type Department Care Team ([facility] st Contact Info) Description 12/30/2024 Refill [facility] MED[facility]INE [address] [place] [address] Jeannette Marquez MD [address] [place] [address] Tobacco dependence syndrome; Chronic low back pain [...] housing situation today? I have magnus dionne 09/19/[address] you li [...] Description 04/03/2025 1:00 PM EDT Office Visit [facility] [address] [place] [address] 05/08/2025 10:00 AM EDT Clinical Support [facility] [address] [place] [address] Jasmina Coronado RN 05/28/2025 9:00 AM EST Office Visit [facility] MED[facility] [address] [place] [address] Ciara Garcia MD [address] [place] [address] 06/26/2025 2:00 PM EST Office Visit [facility] OPTOMETRY [address] [place] [address] Gabriela Castañeda OD [address] [place] [address] documented as of this encounter Visit Diagnoses Diagnosis Tobacco dependence syndrome Tobacco use disorder Chronic low back pain with bilateral sciatica, unspecified back pain laterality documented in this encounter Additional Health Concerns Assessment Noted Time PHQ-9 Depression Total Score: 0 09/27/19 25 9:51 AM EDT documented as of this encounter Care Teams Behavioral Intervention Specialist Relationship Specialty Start Date End Date Ciara Garcia MD [address] [place] [address] PCP - General Family Medicine 06/04/19 documented as of this encounter
--- OUTSIDE RECORDS SUMMARY | 2025-03-25 12:43 | XMS_ITS | Encounter Summary ---
Author Organization [employer] Address [address] [facility] 7t [place] [address] Care Team Providers Care Laundry Worker Name Role Phone Ciara Garcia MD Primary Care Provide r Encounter Details Date Type Department Care Team ([facility] st Contact Info) Description 03/25/2025 Orders Only [facility] [address] [place] [address] Ciara Garcia MD [address] [place] [address] Social History Tobacco Use Types Packs/Day Years [...] 1:00 PM EDT Office Visit [facility] [address] [place] [address] 05/08/2025 10:00 AM EDT Clinical Support [facility] [address] [place] [address] Jasmina Coronado RN 05/28/2025 9:00 AM EST Office Visit [facility] [address] [place] [address] Ciara Garcia MD [address] [place] [address] 06/26/2025 2:00 PM EST Office Visit [facility] [address] [place] [address] Gabriela Castañeda, OD [address] [place] [address] documented as of this encounter Procedures Procedure Name Priority Date/Time Associated Diagnosis Comments LIPID PANEL WITH REFLEX TO DIRECT LDL Routine 03/25/2025 10:49 AM EDT documented in this encounter Results * (ABNORMAL) Lipid Panel with Reflex to Direct LDL (03/25/2025 10:49 AM EDT) Triglycerides 374(H) <150 mg/dL [facility] Comment:Desirable Triglyceri de: less than 150 mg/dLBorderline High Triglyceride 150-199 mg/dLHigh Triglyceride: 200-499 mg/dLVery High Triglyceride: greater than or equal to 5OO mg/dL Cholesterol 241(H) <200 mg/dL [facility] Comment:Desirable Cholestero l: less than 200 mg/dLBorderline High Cholesterol: 200-239 mg/dLHigh Cholesterol: greater than 239 mg/dL LDL Cholesterol Calculated 106(H) <100 mg/dL [facility] Comment:Desirable LDL: less than 100 mg/dLNear Optimal/Above Optimal LDL: 110- 129 mg/dLBorderline High LDL: 130-159 mg/dLHigh LDL: 160-189 mg/dLVery High LDL: greater than or equal to 190 mg/dL HDL Cholesterol 61 >40 mg/dL [facility] Comment:Desirable HDL: great er than 40 mg/dL Note: This HDL assay may give artificially low results in patients with liver disease. 03/25/2025 10:4 9 AM EDT 03/25/2025 11:24 AM EDT us Ciara Celaya MD LAB BLOOD ORDERABLES Final Result [facility] [address] [place] [address] [phone] documented in this encounter Visit Diagnoses Not on filedocumented in this encounter Additional Health Concerns Assessment Noted Time PHQ-9 Depression Total Score: 0 03/06/20 25 11:41 AM EDT documented as of this encounter Care Teams Laundry Worker Relationship Specialty Start Date End Date Ciara Garcia MD [address] [place] [phone] PCP - General Family Medicine 06/04/19 documented as of this encounter
--- OUTSIDE RECORDS SUMMARY | 2025-03-25 12:43 | XMS_ITS | Encounter Summary ---
Author Organization [employer] Address [address] [facility] 7t [place] [address] Care Team Providers Care Insurance Customer Service Specialist Name Role Phone Ciara Garcia MD Primary Care Provide r Reason for Visit * Reason Comments Med Refill Encounter Details Date Type Department Care Team ([facility] st Contact Info) Description 03/04/2025 Refill [facility] MEDICINE [address] [place] [address] Ciara Garcia MD [address] [place] [address] Tobacco dependence syndrome Social History Tobacco Use [...] AM EDT documented as of this encounter Functional Status * Over the past 2 weeks, how often have you been bothered by any of the following problems? Question Answer Date of Assessment Author Patient Health Questionnaire -2 Score 0 03/06/2025 11:41 AM EDT Lisa Jones MA * Little interest or pleasure in doing things Answer Date of Assessment Author Not at all 03/06/2025 11:41 AM EDT Lisa Jones MA * Feeling down, depressed, or hopeless Answer Date of Assessment Author Not at all 03/06/2025 11:41 AM MISTYT Lisa Jones MA * Trouble falling or staying asleep, or sleeping too much Answer Date of Assessment Author Not at all 03/06/2025 11:41 AM EDT Lisa Jones MA * Feeling tired or having little energy Answer Date of Assessment Author Not at all 03/06/2025 11:41 AM EDT Lisa Jones MA * Poor appetite or overeating Answer Date of Assessment Author Not at all 03/06/2025 11:41 AM MISTYT Lisa Jones MA * Feeling bad about yourself - or that you are a failure or have let yourself or your family down Answer Date of Assessment Author Not at all 03/06/2025 11:41 AM MISTYLisa House MA * Trouble concentrating on things, such as reading the newspaper or watching television Answer Date of Assessment Author Not at all 03/06/2025 11:41 AM Lisa Zurita MA * Moving or speaking so slowly that other people could have noticed? Or the opposite - being so fidgety or restless that you have been moving around a lot more than usual. Answer Date of Assessment Author Not at all 03/06/2025 11:41 AM Lisa Zurita MA * Thoughts that you would be better off or hurting yourself in some way Answer Date of Assessment Author Not at all 03/06/2025 11:41 AM Lisa Zurita MA * Patient Health Questionnaire-9 Score Answer Date of Assessment Author 0 03/06/2025 11:41 AM Lisa Zurita MA * Over the last 2 weeks, how often have you been bothered by any of the following problems? Question Answer Date of Assessment Author Feeling nervous, anxious, or on edge 0 03/06/2025 11:43 AM Lisa Zurita MA Not being able to stop or co ntrol worrying 0 03/06/2025 11:43 AM Lisa Zurita MA Worrying too much about diff erent things 0 03/06/2025 11:43 AM Lisa Zurita MA Trouble relaxing 0 03/06/2025 11:43 AM Lisa Zurita MA Being so restless that it is hard to sit still 0 03/06/2025 11:43 AM Lisa Zurita MA Becoming easily annoyed or irritable 0 03/06/2025 11:43 AM Lisa Zurita MA Feeling afraid as if somethi ng awful might happen 0 03/06/2025 11:43 AM Lisa Zurita MA YUSRA-7 Total Score 0 03/06/2025 11:43 AM Lisa Zurita MA documented as of this encounter Plan of Treatment Upcoming Encounters Date Type Department Care Team (Late st Contact Info) Description 04/03/2025 1:00 PM EDT Office Visit [facility] [address] [place] [address] 05/08/2025 10:00 AM EDT Clinical Support [facility] MED[facility] [address] [place] [address] Jasmina Coronado, RN 05/28/2025 9:00 AM EST Office Visit [facility] [address] [place] [address] Ciara Garcia MD [address] [place] [address] 06/26/2025 2:00 PM EST Office Visit [facility] OPTOMETRY [address] [place] [address] Gabriela Castañeda, OD [address] [place] [address] documented as of this encounter Visit Diagnoses Diagnosis Tobacco dependence syndrome Tobacco use disorder documented in this encounter Additional Health Concerns Assessment Noted Time PHQ-9 Depression Total Score: 0 09/27/19 25 9:51 AM EDT documented as of this encounter Care Teams Insurance Customer Service Specialist Relationship Specialty Start Date End Date Ciara Garcia MD [address] [place] [phone] PCP - General Family Medicine 06/04/19 documented as of this encounter
--- OUTSIDE RECORDS SUMMARY | 2025-03-25 12:43 | XMS_ITS | Encounter Summary ---
Author Organization [employer] Address [address] [facility] 7t [place] [address] Care Team Providers Care Edm Operator Name Role Phone Ciara Garcia MD Primary Care Provide r Encounter Details Date Type Department Care Team (Latest Contact Info) Description 03/25/2025 Travel Social History Tobacco Use Types Packs/Day [...] 1:00 PM EDT Office Visit [facility] [address] [place] [address] 05/08/2025 10:00 AM EDT Clinical Support [address] [address] Jasmina Coronado, MARIBEL 05/28/2025 9:00 AM EST Office Visit [facility] [address] [place] [address] Ciara Garcia MD [address] [place] [address] 06/26/2025 2:00 PM EST Office Visit [facility] [address] [place] [address] Gabriela Castañeda, OD [address] [place] [address] documented as of this encounter Visit Diagnoses Not on filedocumented in this encounter Additional Health Concerns Assessment Noted Time PHQ-9 Depression Total Score: 0 03/06/20 25 11:41 AM EDT documented as of this encounter Care Teams Edm Operator Relationship Specialty Start Date End Date Ciara Garcia MD [address] [place] [address] PCP - General Family Medicine 06/04/19 documented as of this encounter
--- OUTSIDE RECORDS SUMMARY | 2025-03-25 12:43 | XMS_ITS | Encounter Summary ---
Author Organization [employer] Address 75 [facility] 7t [place] [address] Care Team Providers Care Production Line Name Role Phone Ciara Garcia MD Primary Care Provide r Reason for Visit * Reason Comments Med Refill Encounter Details Date Type Department Care Team ([facility] st Contact Info) Description 09/21/2023 Refill [facility] [address] [place] [address] Ciara Garcia MD 230 [place] [address] Other chronic pain Social History Tobacco Use [...] Description 04/03/2025 1:00 PM EDT Office Visit [facility] [address] [place] [address] 05/08/2025 10:00 AM EDT Clinical Support [facility] [address] [place] [address] Jasmina Coronado, MARIBEL 05/28/2025 9:00 AM EST Office Visit [facility] [address] [place] [address] Ciara Garcia MD [address] [place] [address] 06/26/2025 2:00 PM EST Office Visit [facility] [address] [place] [address] TarGabriela vidal, OD [address] [place] [address] documented as of this encounter Visit Diagnoses Diagnosis Other chronic pain documented in this encounter Additional Health Concerns Assessment Noted Time PHQ-9 Depression Total Score: 0 12/29/19 11:51 AM EDT documented as of this encounter Care Teams Production Line Relationship Specialty Start Date End Date Ciara Garcia MD [address] [place] [address] PCP - General Family Medicine 06/04/19 documented as of this encounter
--- OUTSIDE RECORDS SUMMARY | 2025-03-25 12:43 | XMS_ITS | Encounter Summary ---
Author Organization [employer] Address [address] [place] [address] 7t [place] [address] Care Team Providers Care Amusement Ride Inspector Name Role Phone Ciara Garcia MD Primary Care Provide r Reason for Visit * Reason Onset Date Comments Med Refill 03/16/2023 Encounter Details Date Type Department Care Team ([facility] st Contact Info) Description 03/16/2023 Telephone [facility] [address] [place] [address] Ciara Garcia MD 230 [place] [address] Med Refill Social History Tobacco Use Types [...] MG 12 hr tablet Please sent to [facility]/pharmacy #[id number] - [place] - [address] [facility] documented in this encounter Plan of Treatment Upcoming Encounters Date Type Department Care Team (Late st Contact Info) Description 04/03/2025 1:00 PM EDT Office Visit [facility] [address] [place] [address] 05/08/2025 10:00 AM EDT Clinical Support [facility] [address] [place] [address] Jasmina Coronado, MARIBEL 05/28/2025 9:00 AM EST Office Visit [facility] [address] [place] [address] Ciara Garcia MD [address] [place] [address] 06/26/2025 2:00 PM EST Office Visit [facility] [address] [place] [address] Tarka, Gabriela, OD 267 [place] [address] documented as of this encounter Visit Diagnoses Not on filedocumented in this encounter Additional Health Concerns Assessment Noted Time PHQ-9 Depression Total Score: 0 12/29/19 23 11:51 AM EDT documented as of this encounter Care Teams Amusement Ride Inspector Relationship Specialty Start Date End Date Ciara Garcia MD [address] [place] [phone] PCP - General Family Medicine 06/04/19 documented as of this encounter
--- OUTSIDE RECORDS SUMMARY | 2025-03-25 12:43 | XMS_ITS | Encounter Summary ---
Author Organization [employer] Address [address] [place] [address] 7 [place] [address] Care Team Providers Care Lead Setter Name Role Phone Ciara Garcia MD Primary Care Provide r Reason for Visit * Reason Onset Date Comments Med Refill 02/16/2023 Encounter Details Date Type Department Care Team ([facility] st Contact Info) Description 02/16/2023 Telephone [facility] MED[facility] [address] [place] [address] Ciara Garcia MD 230 [place] [address] Med Refill Social History Tobacco Use Types [...] 04/03/2025 1:00 PM EDT Office Visit [facility] 230 [place] [address] 05/08/2025 10:00 AM EDT Clinical Support [address] [address] Jasmina Coronado, MARIBEL 05/28/2025 9:00 AM EST Office Visit [facility] [address] [place] [address] Ciara Garcia MD [address] [place] [address] 06/26/2025 2:00 PM EST Office Visit [facility] [address] [place] [address] Gabriela Castañeda, OD 267 [place] [address] documented as of this encounter Visit Diagnoses Not on filedocumented in this encounter Additional Health Concerns Assessment Noted Time PHQ-9 Depression Total Score: 0 12/29/19 23 11:51 AM EDT documented as of this encounter Care Teams Lead Setter Relationship Specialty Start Date End Date Ciara Garcia MD [address] [place] [address] [phone] PCP - General Family Medicine 06/04/19 documented as of this encounter
--- OUTSIDE RECORDS SUMMARY | 2025-03-25 12:43 | XMS_ITS | Encounter Summary ---
Author Organization [employer] Address 75 [facility] 7 [place] [address] Care Team Providers Care Financial Project Manager Name Role Phone Ciara Garcia MD Primary Care Provide r Reason for Visit * Reason Onset Date Comments Nurse Triage 11/20/2024 Encounter Details Date Type Department Care Team ([facility] st Contact Info) Description 11/20/2024 Telephone [facility] 230 [place] [address] Ciara Garcia MD 230 [place] [address] Nurse Triage Social History Tobacco Use Types [...] this encounter Functional Status * Over the last 2 weeks, how often have you been bothered by any of the following problems? Question Answer Date of Assessment Author Feeling nervous, anxious, or on edge 0 11/22/2024 11:32 AM EDT Augusta Fuentes [place] Not being able to stop or control worrying 0 11/22/2024 11:32 AM EDT Augusta Fuentes MA Worrying too much about different things 0 11/22/2024 11:32 AM EDT Augusta Fuentes MA Trouble relaxing 0 11/22/2024 11:32 AM EDT Augusta Fuentes MA Being so restless that it is hard to sit still 0 11/22/2024 11:32 AM EDT Augusta Fuentes MA Becoming easily annoyed or irritable 0 11/22/2024 11:32 AM EDT Augusta Fuentes MA Feeling afraid as if something awful might happen 0 11/22/2024 11:32 AM EDT Augusta Wells MA [id number] Total Score 0 11/22/2024 11:32 AM EDT Augusta Fuentes [place] documented as of this encounter Miscellaneous Notes * Telephone Encounter - Belem Simon RN - 11/20/2024 3:17 PM EDT Triage call Pt reports urinary urgency/frequency and a sense of not emptying bladder. Pt reports this has been happening for several weeks now. Pt denies pain with urination. Only other symptoms is profuse perspiration. Pt reports drinking adequate liquids. Pt is offered to come to [facility] but, requests to be seen in office in the next 2 days. ASK apt with Armed Security Officer Caroline 11/22/24 @ 1115am. Pt agrees with disposition. Insurance is verified as active prior to booking. Protocol Used: Urinary Symptoms (Adult) Protocol-Based Disposition: See in Office or Video Visit Today Video visit not offered Positive Triage Question: * Urinating more frequently than usual (i.e., frequency) OR new-onset of the feeling of an urgent need to urinate (i.e., urgency) * All higher-acuity triage questions were negative Care Advice Discussed: * Reasons To Call Back - Fever occurs - Pain or burning with urination - Unable to urinate and bladder feels full - You become worse * Telephone Encounter - Lily Mullen - 11/20/2024 2:13 PM EDT Symptom: Urine Symptoms Outcome: Schedule a same-day appointment or talk to a nurse or provider today Reason: Caller denied all higher acuity questions The caller accepted this outcome. [phone] documented in this encounter Plan of Treatment Upcoming Encounters Date Type Department Care Team (Late st Contact Info) Description 04/03/2025 1:00 PM EDT Office Visit [facility] [address] [place] [address] 05/08/2025 10:00 AM EDT Clinical Support [address] [address] Jasmina Coronado RN 05/28/2025 9:00 AM EST Office Visit [address] [address] Ciara Garcia MD 230 [place], [place] [phone] 06/26/2025 2:00 PM EST Office Visit [facility] [address] [place], [place] [phone] Gabriela Castañeda, OD 267 [place], [place] [phone] documented as of this encounter Visit Diagnoses Not on filedocumented in this encounter Additional Health Concerns Assessment Noted Time PHQ-9 Depression Total Score: 0 09/27/19 25 9:51 AM EDT documented as of this encounter Care Teams Financial Project Manager Relationship Specialty Start Date End Date Ciara Garcia MD 230 [place], [place] [phone] PCP - General Family Medicine 06/04/19 documented as of this encounter
--- OUTSIDE RECORDS SUMMARY | 2025-03-25 12:43 | XMS_ITS | Encounter Summary ---
Author Organization [employer] Address 75 [facility] 7t [place] [address] Care Team Providers Care Admin Dir Name Role Phone Ciara Garcia MD Primary Care Provide r Reason for Visit * Reason Comments Med Refill Encounter Details Date Type Department Care Team ([facility] st Contact Info) Description 11/26/[address] [facility] 230 [place] [address] Jeannette Marquez MD 230 [place] [address] Tobacco dependence syndrome Social History Tobacco Use [...] Description 04/03/2025 1:00 PM EDT Office Visit [facility] [address] [place] [address] 05/08/2025 10:00 AM EDT Clinical Support [facility] [address] [place] [address] Jasmina Coronado RN 05/28/2025 9:00 AM EST Office Visit [facility] [address] [place] [address] Ciara Garcia MD 230 [place] [address] 06/26/2025 2:00 PM EST Office Visit [facility] [address] [place] [address] Gabriela Castañeda, OD 267 [place] [address] documented as of this encounter Visit Diagnoses Diagnosis Tobacco dependence syndrome Tobacco use disorder documented in this encounter Additional Health Concerns Assessment Noted Time PHQ-9 Depression Total Score: 0 09/27/19 25 9:51 AM EDT documented as of this encounter Care Teams Admin Dir Relationship Specialty Start Date End Date Ciara Garcia MD 230 [place] [address] PCP - General Family Medicine 06/04/19 documented as of this encounter
--- OUTSIDE RECORDS SUMMARY | 2025-03-25 12:43 | XMS_ITS | Encounter Summary ---
Author Organization [employer] Address 75 [facility] 7t [place] [address] Care Team Providers Care Mold Closer Helper Name Role Phone Ciara Garcia MD Primary Care Provide r Reason for Visit * Reason Comments Med Refill Encounter Details Date Type Department Care Team ([facility] st Contact Info) Description 01/28/2025 Refill [facility] [address] [place] [address] Ciara Garcia MD 230 [place] [address] Tobacco dependence syndrome Social History Tobacco Use [...] Description 04/03/2025 1:00 PM EDT Office Visit [facility] [address] [place] [address] 05/08/2025 10:00 AM EDT Clinical Support [facility] [address] [place] [address] Jasmina Coronado RN 05/28/2025 9:00 AM EST Office Visit [facility] [address] [place] [address] Ciara Garcia MD 230 [place] [address] 06/26/2025 2:00 PM EST Office Visit [facility] [address] [place] [address] Gabriela Castañeda, WALDO 267 [place] [address] documented as of this encounter Visit Diagnoses Diagnosis Tobacco dependence syndrome Tobacco use disorder documented in this encounter Additional Health Concerns Assessment Noted Time PHQ-9 Depression Total Score: 0 09/27/19 25 9:51 AM EDT documented as of this encounter Care Teams Mold Closer Helper Relationship Specialty Start Date End Date Ciara Garcia MD 230 [place] [address] PCP - General Family Medicine 06/04/19 documented as of this encounter
--- OUTSIDE RECORDS SUMMARY | 2025-03-25 12:43 | XMS_ITS | Encounter Summary ---
Author Organization [employer] Address 75 [facility] 7t [place] [address] Care Team Providers Care French Folding Machine Operator Name Role Phone Ciara Garcia MD Primary Care Provide r Reason for Visit * Reason Onset Date Comments Nurse Triage 01/13/2025 Encounter Details Date Type Department Care Team ([facility] st Contact Info) Description 01/13/2025 Telephone [facility] 230 [place] [address] Ciara Garcia MD 230 [place] [address] Nurse Triage Social History Tobacco Use Types [...] Telephone Encounter - Belem Simon RN - 01/13/2025 12:47 PM EDT Triage call Pt reports constipation for 4 days now. Last BM was 4 days ago. Pt did take 30cc of M.O.M. last night with no effect. Pt does report abdominal pain in the left lower quad of abdomen whichstarted in the groin area. Pt reports drinking adequate liquids. Pt is advised to go to closest ED for evaluation and then call for follow up apt and Pt agrees with this plan. Insurance is verified as active. Protocol Used: Constipation (Adult) Protocol-Based Disposition: See in Office or Video Visit Today Video visit not offered Positive Triage Questions: * Abdomen is more swollen than usual * Last bowel movement (BM) > 4 days ago * All higher-acuity triage questions were negative Care Advice Discussed: * Reassurance and Education - Constipation * General Constipation Instructions * High Fiber Diet * Drink Adequate Liquids * Reasons To Call Back - Constipation lasts more than 1 week after using Care Advice - Abdomen swelling, vomiting or fever occur - Constant or increasing abdomen pain - You think you need to be seen - You become worse * Telephone Encounter - Tank Ruvalcaba - 01/13/2025 12:31 PM EDT Symptom: Constipation Outcome: Schedule an appointment to be seen within 24 hours Reason: Caller denied all higher acuity questions documented in this encounter Plan of Treatment Upcoming Encounters Date Type Department Care Team (Late st Contact Info) Description 04/03/2025 1:00 PM EDT Office Visit [facility] [address] [place] [address] 05/08/2025 10:00 AM EDT Clinical Support [facility] MEDICINE [address] [place] [address] Jasmina Coronado, RN 05/28/2025 9:00 AM EST Office Visit [address] [address] Ciara Garcia MD [address] [place] [address] 06/26/2025 2:00 PM EST Office Visit [facility] [address] [place] [address] Tarka, Gabriela, OD 267 [place] [address] documented as of this encounter Visit Diagnoses Not on filedocumented in this encounter Additional Health Concerns Assessment Noted Time PHQ-9 Depression Total Score: 0 09/27/19 25 9:51 AM EDT documented as of this encounter Care Teams French Folding Machine Operator Relationship Specialty Start Date End Date Ciara Garcia MD [address] [place] [address] PCP - General Family Medicine 06/04/19 documented as of this encounter
--- OUTSIDE RECORDS SUMMARY | 2025-03-25 12:43 | XMS_ITS | Encounter Summary ---
Author Organization [employer] Address [address] [place] [address] 7t [place] [address] Care Team Providers Care Dredge Boat Engineer Name Role Phone Ciara Garcia MD Primary Care Provide r Encounter Details Date Type Department Care Team (Late st Contact Info) Description 04/17/2023 Telephone [facility] [address] [place] [address] Ciara Garcia MD [address] [place] [address] Social History Tobacco Use Types Packs/Day Years [...] Description 04/03/2025 1:00 PM EDT Office Visit [facility] [address] [place] [address] 05/08/2025 10:00 AM EDT Clinical Support [facility] [address] [place] [address] Jasmina Coronado RN 05/28/2025 9:00 AM EST Office Visit [facility] 230 [place] [address] Ciara Garcia MD 230 [place] [address] 06/26/2025 2:00 PM EST Office Visit [facility] [address] [place], [place] [phone] Gabrieal Castañeda, OD 267 [place] [address] documented as of this encounter Visit Diagnoses Not on filedocumented in this encounter Additional Health Concerns Assessment Noted Time PHQ-9 Depression Total Score: 0 12/29/19 23 11:51 AM EDT documented as of this encounter Care Teams Dredge Boat Engineer Relationship Specialty Start Date End Date Ciara Garcia MD [address] [place] [address] PCP - General Family Medicine 06/04/19 documented as of this encounter
--- OUTSIDE RECORDS SUMMARY | 2025-03-25 12:43 | XMS_ITS | Patient Health Record ---
Author Organization [facility] Address [address] [place] [address] Care Team Providers Care Supervisor Refractory Products Name Role Phone Tanner Carrera [phone] Reason For Referral No Information Plan Of Treatment No Information
--- OUTSIDE RECORDS SUMMARY | 2025-03-25 12:43 | XMS_ITS | Encounter Summary ---
Author Organization [employer] Address 75 [facility] 7t [place] [address] Care Team Providers Care Supervisor Refining Name Role Phone Ciara Garcia MD Primary Care Provide r Encounter Details Date Type Department Care Team ([facility] st Contact Info) Description 03/25/2025 Results Follow-Up [facility] MEDICINE [address] [place] [address] Audrey Roblero, ANP 230 [place] [address] Urinalysis Complete, Albumin, Random Urine W/Creatinine Social History Tobacco Use Types Packs/Day Years [...] as of this encounter Miscellaneous Notes * Result Encounter Note - JAMES Quesada - 03/25/2025 12:24 PM EDT Please let pt know, urine testing is ok - does show some protein in urine which is not new for him,likely d/t HTN and DM, and his lisinopril helps protect his kidneys from additional damage. documented in this encounter Plan of Treatment Upcoming Encounters Date Type Department Care Team (Late st Contact Info) Description 04/03/2025 1:00 PM EDT Office Visit [facility] [address] [place] [address] 05/08/2025 10:00 AM EDT Clinical Support [facility] [address] [place] [address] Jasmina Coronado RN 05/28/2025 9:00 AM EST Office Visit [facility] [address] [place] [address] Ciara Garcia MD 230 [place] [address] 06/26/2025 2:00 PM EST Office Visit [facility] [address] [place] [address] Gabriela Castañeda, OD 267 [place] [address] documented as of this encounter Visit Diagnoses Not on filedocumented in this encounter Additional Health Concerns Assessment Noted Time PHQ-9 Depression Total Score: 0 03/06/20 25 11:41 AM EDT documented as of this encounter Care Teams Supervisor Refining Relationship Specialty Start Date End Date Ciara Garcia MD [address] [place] [address] PCP - General Family Medicine 06/04/19 documented as of this encounter
== END 2025-03-25 10:44 | disposition home or self-care (01) ==
LOC: HO.HHCL 10:43
PROVIDERS: Nurse Practitioner Primary Care; PCP Internal Medicine; Visit Provider Family Medicine
DX: E78.5 Hyperlipidemia, unspecified (principal); R22.43 Localized swelling, mass and lump, lower limb, bilateral; E11.9 Type 2 diabetes mellitus without complications; R82.2 Biliuria; I10 Essential (primary) hypertension
CPT/HCPCS: 36415; 80048; 80061; 80076; 81001; 82043; 82570; 84443; 85025

== ENCOUNTER 2025-04-29 15:32 | Outpatient (REF) | payer MEDICAID, SELFPAY ==
--- OUTSIDE RECORDS SUMMARY | 2025-04-29 15:00 | XMS_ITS | Encounter Summary ---
Author Organization [employer] Address [address] [place] [address] [address] [place] [address] Care Team Providers Care Ct Manager Name Role Phone Ciara Garcia MD Primary Care Provide r Reason for Referral * Imaging (STAT) - Authorized Specialty Diagnoses / Procedures Referred By Contac t Referred To Contact Cardiology Diagnoses Localized swelling of both lower legs Procedures Vascular US lower extremity venous duplex bilateral Thiago Calvert MD [address], [place] Phone: tel: fax: [address] Phone: tel: fax: Referral ID Status Reason Start Date Expiration Date Visits Requested Visits Authorized [id number] Authorized Perform Procedure 5 04/29/2026 1 1 * Imaging (Routine) - Authorized Specialty Diagnoses / Procedures Referred By Contac t Referred To Contact Cardiology Diagnoses Localized swelling of both lower legs Diastolic dysfunction Procedures Transthoracic Echo (TTE) Complete Thiago Calvert MD [address] [place] [address] Phone: tel: fax: [address] Phone: tel: fax: Referral ID Status Reason Start Date Expiration Date Visits Requested Visits Authorized [id number] Authorized Perform Procedure 04/29/2026 1 1 Reason for Visit * Reason Comments Rash Encounter Details Date Type Department Care Team ([facility] st Contact Info) Description 04/29/2025 3:00 PM EDT Office Visit [facility] [address] [place] [address] Thiago Calvert MD [address] [place] [address] Rash (Primary Dx); Localized swelling of both lower legs; Chronic diastolic (congestive) heart failure (HCC); Diastolic dysfunction; Primary hypertension; Elevated LFTs; Urinary frequency Social History Tobacco Use Types Packs/Day Years [...] Sign Reading Time Taken Comments Blood Pressure 131/74 04/29/2025 3:00 PM EDT Pulse 83 04/29/2025 3:00 PM EDT Temperature 36 C (96.8 F) 04/29/2025 3:00 PM EDT Respiratory Rate 20 04/29/2025 3:00 PM EDT Oxygen Saturation 96% 04/29/2025 3:00 PM EDT Inhaled Oxygen Concentration - - Weight 115 kg (254 lb 3.2 oz) 04/29/2025 3:00 PM EDT Height 175.3 cm (5' 9 ) 04/29/2025 3:00 PM EDT Body Mass Index 37.54 04/29/2025 3:00 PM EDT documented in this encounter Progress Notes * Thiago Mcdaniel MD - 04/29/2025 3:00 PM EDT SUBJECTIVE Efraín Bravo is a 64 y.o. male who presents for Rash. Efraín Bravo, age 64 years Lower Extremity Swelling - Noticed severe swelling in legs a few weeks ago - Swelling worsened since initial onset - Right leg more swollen than left - History of water retention, previously treated with diuretics Rash - Rash developed recently, started with itching - Rash now spreading over legs, arms, and groin - History of similar rash 18 years ago, resolved quickly after Benadryl injection - Rash described as traveling across body COPD - Reports difficulty breathing, attributes to COPD Weight Gain - Reports ongoing weight gain despite not eating much - Believes weight gain is due to water retention Misc - Denies chest pain - No other household members sick HPI Review of Systems Constitutional: Negative for fever. HENT: Negative for sore throat. Respiratory: Negative for cough and shortness of breath. Cardiovascular: Negative for chest pain. Gastrointestinal: Negative for abdominal pain. Skin: Positive for rash. Neurological: Negative for headaches. Allergies[1] OBJECTIVE Vitals: 04/29/25 1500 BP: 131/74 BP Location: Left arm Patient Position: Sitting BP Cuff Size: Large adult Pulse: 83 Resp: 20 Temp: 96.8 ??F (36 ??C) TempSrc: Temporal SpO2: 96% Weight: 254 lb 3.2 oz (115 kg) Height: 5' 9 (1.753 m) Physical Exam Vitals reviewed. Constitutional: Appearance: Normal appearance. HENT: Head: Normocephalic and atraumatic. Right Ear: External ear normal. Left Ear: External ear normal. Nose: Nose normal. Mouth/Throat: Mouth: Mucous membranes are moist. Eyes: Conjunctiva/sclera: Conjunctivae normal. Cardiovascular: Rate and Rhythm: Normal rate and regular rhythm. Pulmonary: Effort: Pulmonary effort is normal. Breath sounds: Normal breath sounds. Musculoskeletal: Right lower le+ Pitting Edema present. Left lower le+ Pitting Edema present. Skin: General: Skin is warm. Comments: Erythematous rash on both arms, chest, abdomen and legs, signs of scratching Neurological: Mental Status: He is alert. Mental status is at baseline. Assessment/Plan Problem List Items Addressed This Visit Rash - Primary Patient here with a new onset of extremely pruritic erythematous rash affecting both arms, chest abdomen and legs Exam suggestive of likely allergic reaction. Plan: Prescribed prednisone and Benadryl for symptomatic relief. Advised to avoid scratching to prevent secondary infection. Ordered blood work to evaluate for infectious or allergic causes. Advised to avoid deodorants, chemicals, and lotions. If rash persists despite treatment and normal blood work, referral to merchandise coordinator discussed. Advised to monitor for possible household infestation (e.g.,bed bugs). - Risks and side effects: Benadryl may cause drowsiness; patient notified. Relevant Medications diphenhydrAMINE (BENADryl) 25 MG tablet predniSONE (Deltasone) 20 MG tablet Other Relevant Orders Comprehensive Metabolic Panel TSH with Reflex to Free T4 CBC auto differential Syphilis Screen Hepatitis C Antibody with Reflex to HCV, RNA, Quantitative, Real-Time PCR Localized swelling of both lower legs Patient here with c/o bilateral LE edema right > left. Pt reports a history of this in the past for which he has been given short courses of Lasix but at some it was discontinued due to low blood pressures On exam he has Edema in lower extremities, right leg more swollen than left. Possible etiologies include heart dysfunction or deep vein thrombosis. Plan: Ordered ultrasound of lower extremities to evaluate for blood clot, to be performed as soon as possible. Prescribed diuretic (30 tablets) with instructions to monitor blood pressure at home andreduce dose or discontinue if blood pressure drops below 110 mmHg systolic. Ordered echocardiogram to assess cardiac function. Ordered blood work to evaluate for cardiac and other causes of fluid retention. Follow-up with Dr. Peterson on May 08, 2025 to review results. Relevant Medications furosemide (Lasix) 20 MG tablet Other Relevant Orders Comprehensive Metabolic Panel TSH with Reflex to Free T4 Urinalysis, Complete, with Reflex to Culture CBC auto differential Syphilis Screen Hepatitis C Antibody with Reflex to HCV, RNA, Quantitative, Real-Time PCR Transthoracic Echo (TTE) Complete B Type Natriuretic Peptide (BNP) Vascular US lower extremity venous duplex bilateral Chronic diastolic (congestive) heart failure (HCC) Pt with acute on chronic lower extremity edema in the setting on hypertension, SUNNY, history dyastolic dysfunction. Today c/o sob but attributes it to his COPD Plan: ECHO, restart Lasix Pending on ECHO he might need Cardiology evaluation Relevant Medications furosemide (Lasix) 20 MG tablet Other Relevant Orders B Type Natriuretic Peptide (BNP) Diastolic dysfunction Relevant Medications furosemide (Lasix) 20 MG tablet Other Relevant Orders Comprehensive Metabolic Panel TSH with Reflex to Free T4 Urinalysis, Complete, with Reflex to Culture CBC auto differential Syphilis Screen Hepatitis C Antibody with Reflex to HCV, RNA, Quantitative, Real-Time PCR Transthoracic Echo (TTE) Complete B Type Natriuretic Peptide (BNP) Hypertension BP today within normal limits He apparently is on Lisinopril 10 mg po daily Plan: I added Furosemide 20 mg po daily Pt already has a follow up with PCP 05/08/2025 Lab Results Component Value Date NA 144 03/25/2025 NA 141 10/31/2024 K 4.4 03/25/2025 K 4.3 10/31/2024 CL 107 03/25/2025 CL 104 10/31/2024 BUN 20 (H) 03/25/2025 BUN 19 (H) 10/31/2024 CREATININE 1.17 03/25/2025 CREATININE 1.12 10/31/2024 Relevant Medications furosemide (Lasix) 20 MG tablet Other Relevant Orders Comprehensive Metabolic Panel TSH with Reflex to Free T4 Urinalysis, Complete, with Reflex to Culture CBC auto differential Syphilis Screen Hepatitis C Antibody with Reflex to HCV, RNA, Quantitative, Real-Time PCR Elevated LFTs Liver US last year showed: IMPRESSION: 1. There is generalized increase in hepatic echotexture, consistent with fatty infiltration or hepatocellular disease. Please correlate clinically. Characteristic pericholecystic sparing favors fatty infiltration. No focal hepatic mass or intrahepatic biliary dilatation is seen. 2. Liver elastography: Although measurements appear to rule out compensated advanced chronic liver disease, there is statistical variability of the sampling which decreases accuracy. Relevant Orders Comprehensive Metabolic Panel TSH with Reflex to Free T4 Urinalysis, Complete, with Reflex to Culture CBC auto differential Syphilis Screen Hepatitis C Antibody with Reflex to HCV, RNA, Quantitative, Real-Time PCR Urinary frequency Relevant Orders Comprehensive Metabolic Panel TSH with Reflex to Free T4 Urinalysis, Complete, with Reflex to Culture CBC auto differential Syphilis Screen Hepatitis C Antibody with Reflex to HCV, RNA, Quantitative, Real-Time PCR This note was drafted using Ambient (AI) technology. The patient/patient's guardian has been informed and has consented to the use of this technology: Yes Future Appointments Date Time Provider Department [place] 05/08/2025 10:00 AM Jasmina Coronado RN MEDICINE [facility] 05/28/2025 9:00 AM Ciara Celaya MD MEDICINE [facility] 06/26/2025 2:00 PM Gabriela Castañeda, OD VISION [facility] [1] Allergies Allergen Reactions Pollen Extract Other reaction(s): marijuana - causes sweating, nausea, dizziness patient states marijuana causes seizures documented in this encounter Miscellaneous Notes * Assessment & Plan Note - Thiago Mcdaniel MD - 04/29/2025 4:08 PM EDT Associated Problem(s): Elevated LFTs Liver US last year showed: IMPRESSION: 1. There is generalized increase in hepatic echotexture, consistent with fatty infiltration or hepatocellular disease. Please correlate clinically. Characteristic pericholecystic sparing favors fatty infiltration. No focal hepatic mass or intrahepatic biliary dilatation is seen. 2. Liver elastography: Although measurements appear to rule out compensated advanced chronic liver disease, there is statistical variability of the sampling which decreases accuracy. * Assessment & Plan Note - Thiago Mcdaniel MD - 04/29/2025 4:06 PM EDT Associated Problem(s): Hypertension BP today within normal limits He apparently is on Lisinopril 10 mg po daily Plan: I added Furosemide 20 mg po daily Pt already has a follow up with PCP 05/08/2025 Lab Results Component Value Date NA 144 03/25/2025 NA 141 10/31/2024 K 4.4 03/25/2025 K 4.3 10/31/2024 CL 107 03/25/2025 CL 104 10/31/2024 BUN 20 (H) 03/25/2025 BUN 19 (H) 10/31/2024 CREATININE 1.17 03/25/2025 CREATININE 1.12 10/31/2024 * Assessment & Plan Note - Thiago Mcdaniel MD - 04/29/2025 4:02 PM EDT Associated Problem(s): Chronic diastolic (congestive) heart failure (HCC) Pt with acute on chronic lower extremity edema in the setting on hypertension, SUNNY, history dyastolic dysfunction. Today c/o sob but attributes it to his COPD Plan: ECHO, restart Lasix Pending on ECHO he might need Cardiology evaluation * Assessment & Plan Note - Thiago Mcdaniel MD - 04/29/2025 3:56 PM EDT Associated Problem(s): Localized swelling of both lower legs Patient here with c/o bilateral LE edema right > left. Pt reports a history of this in the past for which he has been given short courses of Lasix but at some it was discontinued due to low blood pressures On exam he has Edema in lower extremities, right leg more swollen than left. Possible etiologies include heart dysfunction or deep vein thrombosis. Plan: Ordered ultrasound of lower extremities to evaluate for blood clot, to be performed as soon as possible. Prescribed diuretic (30 tablets) with instructions to monitor blood pressure at home andreduce dose or discontinue if blood pressure drops below 110 mmHg systolic. Ordered echocardiogram to assess cardiac function. Ordered blood work to evaluate for cardiac and other causes of fluid retention. Follow-up with Dr. Peterson on May 08, 2025 to review results. * Assessment & Plan Note - Thiago Mcdaniel MD - 04/29/2025 3:54 PM EDT Associated Problem(s): Rash Patient here with a new onset of extremely pruritic erythematous rash affecting both arms, chest abdomen and legs Exam suggestive of likely allergic reaction. Plan: Prescribed prednisone and Benadryl for symptomatic relief. Advised to avoid scratching to prevent secondary infection. Ordered blood work to evaluate for infectious or allergic causes. Advised to avoid deodorants, chemicals, and lotions. If rash persists despite treatment and normal blood work, referral to merchandise coordinator discussed. Advised to monitor for possible household infestation (e.g.,bed bugs). - Risks and side effects: Benadryl may cause drowsiness; patient notified. documented in this encounter Plan of Treatment Upcoming Encounters Date Type Department Care Team (Late st Contact Info) Description 05/08/2025 10:00 AM EDT Clinical Support [facility] MEDICINE [address] [place] [address] [phone] Jasmina Coronado RN 05/28/2025 9:00 AM EST Office Visit [facility] MEDICINE [address] [place] [address] Ciara Garcia MD [address] [place] [address] 06/26/2025 2:00 PM EST Office Visit [facility] OPTOMETRY [address] [place] [address] Gabriela Castañeda, OD [address] [place] [address] Scheduled Orders Name Type Priority Associated Diagnoses Orde r Schedule Syphilis Screen Lab Routine Localized swelling of both lower legs Rash Primary hypertension Diastolic dysfunction Elevated LFTs Urinary frequency Expected: 04/29/2025 (Approximate), Expires: 04/29/2026 Hepatitis C Antibody with Reflex to HCV, RNA, Quantitative, Real-Time PCR Lab Routine Localized swelling of both lower legs Rash Primary hypertension Diastolic dysfunction Elevated LFTs Urinary frequency Expected: 04/29/2025 (Approximate), Expires: 04/29/2026 Transthoracic Echo (TTE) Complete Echocardiography Routine Localized swelling of both lower legs Diastolic dysfunction Ordered: 04/29/2025 B Type Natriuretic Peptide (BNP) Lab Routine Localized swelling of both lower legs Diastolic dysfunction Chronic diastolic (congestive) heart failure (HCC) Expected: 04/29/2025, Expires: 04/29/2026 documented as of this encounter Procedures Procedure Name Priority Date/Time Associated Diagnosis Comments URINALYSIS, COMPLETE, WITH REFLEX TO CULTURE Routine 04/29/2025 3:36 PM EDT Localized swelling of both lower legs Primary hypertension Diastolic dysfunction Elevated LFTs Urinary frequency CBC WITH AUTO DIFFERENTIAL Routine 04/29/2025 3:36 PM EDT Localized swelling of both lower legs Rash Primary hypertension Diastolic dysfunction Elevated LFTs Urinary frequency TSH W/REFLEX TO FT4 Routine 04/29/2025 3 :35 PM EDT Localized swelling of both lower legs Rash Primary hypertension Diastolic dysfunction Elevated LFTs Urinary frequency COMPREHENSIVE METABOLIC PANEL Routine 04/29/2025 3:35 PM EDT Localized swelling of both lower legs Rash Primary hypertension Diastolic dysfunction Elevated LFTs Urinary frequency documented in this encounter Results * (ABNORMAL) CBC auto differential (04/29/2025 3:36 PM EDT) White Blood Count 12.4(H) 4.8 - 10.8 X10*3/uL [facility] Red Blood Count 4.78 4.60 - 5.80 X10*6/uL [facility] Hemoglobin 14.8 14.0 - 18.0 g/dl [facility] Hematocrit 46.8 42.0 - 52.0 % [facility] Mean Corpuscular Volume 97.9 80.0 - 98.0 fL [facility] Mean Corpuscular Hemoglobin 31.0 27.0 - 33.0 pg [facility] Mean Corpuscular HGB Conc 31.6 31.0 - 36.0 g/dl [facility] Red Cell Distribution Width 13.6 11.0 - 16.0 % [facility] Platelet Count 188 160 - 400 X10*3/uL [facility] Mean Platelet Volume 11.1 9.4 - 12.4 fL [facility] Neutrophils Percent Auto 66.5 45 - 73 % [facility] Imm Gran Pct Auto 0.9(H) 0.0 - 0.4 % [facility] Lymphocytes Percent Auto 19.4(L) 20 - 40 % [facility] Monocytes Percent Auto 6.8 2 - 11 % [facility] Eosinophils Percent Auto 5.4(H) 0 - 4 % [facility] Basophils Percent Auto 1.0 0 - 2 % [facility] NRBC Pct Auto 0.0 0.0 - 0.2 /100WBC [facility] Neutrophils Absolute Auto 8.2 2.0 - 8.3 x10*3/uL [facility] Imm Gran Abs Auto 0.11(H) 0.00 - 0.03 X10*3/uL [facility] Lymphocytes Absolute Auto 2.4 1.2 - 4.9 X10*3/uL [facility] Monocytes Absolute Auto 0.8 0.1 - 1.2 X10*3/uL [facility] Eosinophils Absolute Auto 0.7(H) 0.0 - 0.4 X10*3/uL [facility] Basophils Absolute Auto 0.1 0.0 - 0.2 X10*3/uL [facility] NRBC Abs Auto 0.000 0.0 - 0.012 X10*3/uL [facility] Blood Venous blood specimen / Unknown 04/29/2025 3:36 PM EDT 04/29/2025 4:04 PM EDT Thiago Mcdaniel MD LAB BLOOD ORDERABLES Final Result Performing Organization Address City/[facility] [place]/ZIP Co de Phone Number [facility] [address] [place] [phone] * (ABNORMAL) Urinalysis, Complete, with Reflex to Culture (04/29/2025 3:36 PM EDT) Color Urine Yellow [facility] Appearance Urine Clear [facility] PH 5.5 5.0 - 9.0 [facility] Glucose Urine UA Negative Negative mg/dL [facility] Urine Blood Negative Negative [facility] Specific [place] - Urine 1.025 1.005 - 1.025 [facility] Urine Protein 30 (1+)(A) Neg-Trace mg/dL [facility] Urine Ketones Negative Negative mg/dL [facility] Nitrite Urine Negative Negative [facility] Leukocyte Esterase Urine Negative Negative [facility] RBC Urine 0-2 0 - 2 /HPF [facility] Urine WBC 0-5 0 - 5 /HPF [facility] Urine Squamous Epithelial Cell 0-2 0 - 2 /HPF [facility] Urine Bacteria None Seen None Seen [facility] Hyaline Casts, Urine 0-2 0 - 2 /LPF [facility] Urine 04/29/2025 3:36 PM EDT 04/29/2025 4:05 PM EDT Narrative [facility] - 04/29/2025 4:35 PM EDT Urine, Clean Catch Thiago Mcdaniel MD LAB URINE ORDERABLES Final Result Performing Organization Address City/[facility] [place]/ZIP Co de Phone Number [facility] [address] [place] [address] [phone] * TSH with Reflex to Free T4 (04/29/2025 3:35 PM EDT) TSH reflex Free T4 1.11 0.32 - 4.0 uIU/mL [facility] Blood Venous blood specimen / Unknown 04/29/2025 3:35 PM EDT 04/29/2025 4:04 PM EDT us Thiago Mcdaniel MD LAB BLOOD ORDERABLES Final Result [facility] [address] [place] [phone] * (ABNORMAL) Comprehensive Metabolic Panel (04/29/2025 3:35 PM EDT) Pathologist [facility] Sodium 146(H) 135 - 145 mmol/L [facility] Potassium 4.7 3.3 - 5.1 mmol/L [facility] Chloride 108 96 - 108 mmol/L [facility] Carbon Dioxide 29 22 - 29 mmol/L [facility] Anion Gap 14 12 - 20 [facility] Urea Nitrogen (BUN) 16 9 - 16 mg/dL [facility] Creatinine, Serum 1.18 0.5 - 1.4 mg/dL [facility] Estimated Glomerular Filt Rate >60 [facility] Comment:Chronic Kidney Disea se: Estimated GFR < 60 mL/min/[id number] Kidney Disease: Estimated GFR < 15 mL/min/1.73m2 Glucose 115 60 - 115 mg/dL [facility] Calcium 9.3 8.4 - 10.2 mg/dL [facility] Bilirubin, Total 0.3 0.0 - 1.0 mg/dL [facility] Aspartate Amino Transferase 49(H) 5 - 37 U/L [facility] Alanine Aminotransferase 60(H) 0 - 40 U/L [facility] Total Protein 6.6 6.5 - 8.0 g/dL [facility] Albumin Level 4.4 3.5 - 5.0 g/dL [facility] Alkaline Phosphatase 125(H) 39 - 117 U/L [facility] Blood Venous blood specimen / Unknown 04/29/2025 3:35 PM EDT 04/29/2025 4:04 PM EDT us Thiago Mcdaniel MD LAB BLOOD ORDERABLES Final Result [facility] [address] [place] [phone] documented in this encounter Visit Diagnoses Diagnosis Rash- Primary Rash and other nonspecific skin eruption Localized swelling of both lower legs Chronic diastolic (congestive) heart failure (HCC) Diastolic dysfunction Unspecified heart disease Primary hypertension Unspecified essential hypertension Elevated LFTs Other abnormal blood chemistry Urinary frequency documented in this encounter Additional Health Concerns Assessment Noted Time PHQ-9 Depression Total Score: 0 03/06/20 25 11:41 AM EDT documented as of this encounter Care Teams Ct Manager Relationship Specialty Start Date End Date Ciara Garcia MD [address] [place] [address] PCP - General Family Medicine 06/04/19 documented as of this encounter
[2025-04-29 16:09] LABS: MANUAL DIFF FLAG NO
[2025-04-29 16:31] LABS: Appearance Urine Clear; Glucose Urine UA Negative (Negative); PH 5.5 (5.0-9.0); Specific Gravity - Urine 1.025 (1.005-1.025); UMIC TRIGGER UACC YES
[2025-04-29 16:37] LABS: Hematocrit 46.8 % (42.0-52.0); Hemoglobin 14.8 g/dl (14.0-18.0); Imm Gran Abs Auto 0.11 X10*3/uL (0.00-0.03); Imm Gran Pct Auto 0.9 % (0.0-0.4); Lymphocytes Absolute Auto 2.4 X10*3/uL (1.2-4.9); Mean Corpuscular HGB Conc 31.6 g/dl (31.0-36.0); Mean Corpuscular Hemoglobin 31.0 pg (27.0-33.0); Mean Corpuscular Volume 97.9 fL (80.0-98.0); NRBC Abs Auto 0.000 X10*3/uL (0.0-0.012); NRBC Pct Auto 0.0 /100WBC (0.0-0.2); Platelet Count 188 X10*3/uL (160-400); Red Blood Count 4.78 X10*6/uL (4.60-5.80); White Blood Count 12.4 X10*3/uL (4.8-10.8)
[2025-04-29 17:29] LABS: Alanine Aminotransferase 60 U/L (0-40); Albumin Level 4.4 g/dL (3.5-5.0); Alkaline Phosphatase 125 U/L (39-117); Anion Gap 14 (12-20); Aspartate Amino Transferase 49 U/L (5-37); Blood Urea Nitrogen 16 mg/dL (9-16); Calcium 9.3 mg/dL (8.4-10.2); Carbon Dioxide 29 mmol/L (22-29); Chloride 108 mmol/L (96-108); Estimated Glomerular Filt Rate > 60; Potassium 4.7 mmol/L (3.3-5.1); Sodium 146 mmol/L (135-145); Total Protein 6.6 g/dL (6.5-8.0)
--- OUTSIDE RECORDS SUMMARY | 2025-04-29 18:16 | XMS_ITS | Encounter Summary ---
Author Organization [employer] Address [address] [place] [address] 7t [place] [address] Care Team Providers Care Underwear Hemmer Name Role Phone Ciara Garcia MD Primary Care Provide r Reason for Visit * Reason Onset Date Comments Nurse Triage 01/20/2025 Encounter Details Date Type Department Care Team ([facility] st Contact Info) Description 01/20/2025 Telephone [facility] MEDICINE 230 [place] [address] Ciara Garcia MD 230 [place] [address] Nurse Triage Social History Tobacco Use Types [...] EDT Triage call Pt was seen in [facility] 01/17/25 and dx of RUDY and kidney stone was given. Pt reports pain with urination and left lower quadrant abdominal pain and flank pain. Pt is taking cefuroxime [id number] po bid x10 days as prescribed. Pt [...] ED visit on : Date: 01/17/2025 Hospital: [facility] Seen for: Kidney Stones Symptomatic Yes *if yes message should go to Triage Patient advised will forward to team nurse for follow up Contact at [phone] documented in this encounter Plan of Treatment Upcoming Encounters Date Type Department Care Team (Late st Contact Info) Description 05/08/2025 10:00 AM EDT Clinical Support [facility] MEDICINE [address] [place] [address] Jasmina Coronado, MARIBEL 05/28/2025 9:00 AM EST Office Visit [facility] MEDICINE [address] [place] [address] Ciara Garcia MD 230 [place] [address] 06/26/2025 2:00 PM EST Office Visit [facility] OPTOMETRY [address] [place] [address] Gabriela Castañeda, OD 267 [place] [address] documented as of this encounter Visit Diagnoses Not on filedocumented in this encounter Additional Health Concerns Assessment Noted Time PHQ-9 Depression Total Score: 0 09/27/19 25 9:51 AM EDT documented as of this encounter Care Teams Underwear Hemmer Relationship Specialty Start Date End Date Ciara Garcia MD [address] [place] [address] PCP - General Family Medicine 06/04/19 documented as of this encounter
--- OUTSIDE RECORDS SUMMARY | 2025-04-29 18:16 | XMS_ITS | Encounter Summary ---
Author Organization [employer] Address [address] [facility] 7t [place] [address] Care Team Providers Care Principal Scientist Name Role Phone Ciara Garcia MD Primary Care Provide r Reason for Visit * Reason Comments Med Refill Encounter Details Date Type Department Care Team ([facility] st Contact Info) Description 06/19/2024 Refill [facility] 230 [place] [address] Jason Hatfield MD 230 [place] [address] Tobacco dependence Social History Tobacco Use Types [...] Description 05/08/2025 10:00 AM EDT Clinical Support [facility] [address] [place] [address] Jasmina Coronado RN 05/28/2025 9:00 AM EST Office Visit [facility] [address] [place] [address] Ciara Garcia MD 230 [place] [address] 06/26/2025 2:00 PM EST Office Visit [facility] [address] [place] [address] Gabrilea Castañeda, OD 267 [place] [address] documented as of this encounter Visit Diagnoses Diagnosis Tobacco dependence Tobacco use disorder documented in this encounter Additional Health Concerns Assessment Noted Time PHQ-9 Depression Total Score: 0 12/29/19 23 11:51 AM EDT documented as of this encounter Care Teams Principal Scientist Relationship Specialty Start Date End Date Ciara Garcia MD [address] [place] [address] PCP - General Family Medicine 06/04/19 documented as of this encounter
--- OUTSIDE RECORDS SUMMARY | 2025-04-29 18:16 | XMS_ITS | Encounter Summary ---
Author Organization [employer] Address 75 [facility] 7t [place] [address] Care Team Providers Care Die Lay Out Worker Name Role Phone Ciara Garcia MD Primary Care Provide r Reason for Visit * Reason Comments Med Refill Encounter Details Date Type Department Care Team ([facility] st Contact Info) Description 02/26/2024 Refill [facility] MEDICINE 230 [place] [address] Ciara Garcia MD 230 [place] [address] Cervicalgia; Tobacco dependence syndrome; Uncomplicated asthma, unspecified [...] Description 05/08/2025 10:00 AM EDT Clinical Support [facility] MEDICINE [address] [place] [address] Jasmina Coronado RN 05/28/2025 9:00 AM EST Office Visit [facility] MEDICINE [address] [place] [address] Ciara Garcia MD [address] [place] [address] 06/26/2025 2:00 PM EST Office Visit [facility] OPTOMETRY [address] [place] [address] Tarka, Gabriela, OD 267 [place] [address] documented as of this encounter Visit Diagnoses Diagnosis Cervicalgia Tobacco dependence syndrome Tobacco use disorder Uncomplicated asthma, unspecified asthma severity, unspecified whether persistent documented in this encounter Additional Health Concerns Assessment Noted Time PHQ-9 Depression Total Score: 0 12/29/19 23 11:51 AM EDT documented as of this encounter Care Teams Die Lay Out Worker Relationship Specialty Start Date End Date Ciara Garcia MD [address] [place] [address] PCP - General Family Medicine 06/04/19 documented as of this encounter
--- OUTSIDE RECORDS SUMMARY | 2025-04-29 18:16 | XMS_ITS | Encounter Summary ---
Author Organization [employer] Address [address] [place] [address] 7t [place] [address] Care Team Providers Care Alarm Field Technician Name Role Phone Ciara Garcia MD Primary Care Provide r Reason for Visit * Reason Comments Med Refill Encounter Details Date Type Department Care Team (Late st Contact Info) Description 12/06/2022 Refill [facility] MEDICINE 230 [place] [address] Mary Trejo FNP Essential hypertension Social History Tobacco Use Types [...] Description 05/08/2025 10:00 AM EDT Clinical Support [facility] MEDICINE 230 [place] [address] Jasmina Coronado RN 05/28/2025 9:00 AM EST Office Visit [facility] MEDICINE 230 [place] [address] Ciara Garcia MD 230 [place] [address] 06/26/2025 2:00 PM EST Office Visit [facility] OPTOMETRY 267 [place], [place] [phone] Gabriela Castañeda, OD 267 [place] [address] documented as of this encounter Visit Diagnoses Diagnosis Essential hypertension Unspecified essential hypertension documented in this encounter Care Teams Alarm Field Technician Relationship Specialty Start Date End Date Caira Garcia MD 230 [place] [address] PCP - General Family Medicine 06/04/19 documented as of this encounter
--- OUTSIDE RECORDS SUMMARY | 2025-04-29 18:16 | XMS_ITS | Encounter Summary ---
Author Organization [employer] Address [address] [place] [address] 7t [place] [address] Care Team Providers Care Souvenir And Novelty Maker Name Role Phone Ciara Garcia MD Primary Care Provide r Reason for Visit * Reason Onset Date Comments Nurse Triage 02/09/2023 Encounter Details Date Type Department Care Team ([facility] st Contact Info) Description 02/09/2023 Telephone [facility] 230 [place] [address] Ciara Garcia MD 230 [place] [address] Nurse Triage Social History Tobacco Use Types [...] Pt. Had surgery done on neck at [facility] a few months ago. I do see a report of CR Spine done but that was over 1 year ago on 11/29/21 where there was a metal probe in c3-c4 interspace. Pt. States he had surgery for that the next day at [facility]. I do see surgical notes in [employer] [...] Description 05/08/2025 10:00 AM EDT Clinical Support [address] [address] Jasmina Coronado RN 05/28/2025 9:00 AM EST Office Visit [address] [address] Ciara Garcia MD 230 [place] [address] 06/26/2025 2:00 PM EST Office Visit [facility] 267 [place], [place] [phone] Haydeemarcy Gabriela, OD 267 [place], [place] [phone] documented as of this encounter Visit Diagnoses Not on filedocumented in this encounter Additional Health Concerns Assessment Noted Time PHQ-9 Depression Total Score: 0 12/29/19 23 11:51 AM EDT documented as of this encounter Care Teams Souvenir And Novelty Maker Relationship Specialty Start Date End Date Ciara Garcia MD 230 [place] [address] PCP - General Family Medicine 06/04/19 documented as of this encounter
--- OUTSIDE RECORDS SUMMARY | 2025-04-29 18:16 | XMS_ITS | Encounter Summary ---
Author Organization [employer] Address 75 [facility] 7t [place] [address] Care Team Providers Care Cutter Grinder Name Role Phone Ciara Garcia MD Primary Care Provide r Reason for Visit * Reason Comments Med Refill Encounter Details Date Type Department Care Team ([facility] st Contact Info) Description 06/10/2024 Refill [facility] MEDICINE 230 [place] [address] Ciara Garcia MD 230 [place] [address] Essential hypertension Social History Tobacco Use Types [...] Description 05/08/2025 10:00 AM EDT Clinical Support [facility] MEDICINE 230 [place] [address] Jasmina Coronado RN 05/28/2025 9:00 AM EST Office Visit [facility] MEDICINE 230 [place] [address] Ciara Garcia MD 230 [place] [address] 06/26/2025 2:00 PM EST Office Visit [facility] OPTOMETRY 267 [place] [address] Gabriela Castañeda, OD 267 [place] [address] documented as of this encounter Visit Diagnoses Diagnosis Essential hypertension Unspecified essential hypertension documented in this encounter Additional Health Concerns Assessment Noted Time PHQ-9 Depression Total Score: 0 12/29/19 23 11:51 AM EDT documented as of this encounter Care Teams Cutter Grinder Relationship Specialty Start Date End Date Ciara Garcia MD 230 [place] [address] PCP - General Family Medicine 06/04/19 documented as of this encounter
--- OUTSIDE RECORDS SUMMARY | 2025-04-29 18:16 | XMS_ITS | Encounter Summary ---
Author Organization [employer] Address 75 [facility] 7t [place] [address] Care Team Providers Care Artist Blacksmith Name Role Phone Ciara Garcia MD Primary Care Provide r Reason for Visit * Reason Comments Med Refill Encounter Details Date Type Department Care Team ([facility] st Contact Info) Description 06/01/2024 Refill [facility]INE 230 [place] [address] Ciara Garcia MD 230 [place] [address] Cervicalgia; Tobacco dependence syndrome; Uncomplicated asthma, unspecified [...] Description 05/08/2025 10:00 AM EDT Clinical Support [facility] MEDICINE [address] [place] [address] Jasmina Coronado RN 05/28/2025 9:00 AM EST Office Visit [facility] MEDICINE [address] [place] [address] Ciara Garcia MD [address] [place] [address] 06/26/2025 2:00 PM EST Office Visit [facility] OPTOMETRY 267 [place] [address] Tarka, Gabriela, OD 267 [place] [address] documented as of this encounter Visit Diagnoses Diagnosis Cervicalgia Tobacco dependence syndrome Tobacco use disorder Uncomplicated asthma, unspecified asthma severity, unspecified whether persistent documented in this encounter Additional Health Concerns Assessment Noted Time PHQ-9 Depression Total Score: 0 12/29/19 23 11:51 AM EDT documented as of this encounter Care Teams Artist Blacksmith Relationship Specialty Start Date End Date Ciara Garcia MD [address] [place] [address] PCP - General Family Medicine 06/04/19 documented as of this encounter
--- OUTSIDE RECORDS SUMMARY | 2025-04-29 18:16 | XMS_ITS | Encounter Summary ---
Author Organization [employer] Address 75 [facility] 7t [place] [address] Care Team Providers Care Transportation Analyst Name Role Phone Ciara Garcia MD Primary Care Provide r Reason for Visit * Reason Comments Med Refill Encounter Details Date Type Department Care Team ([facility] st Contact Info) Description 05/06/2024 Refill [facility] MEDICINE 230 [place] [address] Ciara Garcia MD 230 [place] [address] Cervicalgia; Tobacco dependence syndrome Social History Tobacco [...] Clinical Support [facility] MEDICINE [address] [place] [address] Jasmina Coronado RN 05/28/2025 9:00 AM EST Office Visit [facility] MEDICINE [address] [place] [address] Ciara Garcia MD [address] [place] [address] 06/26/2025 2:00 PM EST Office Visit [facility] OPTOMETRY 267 [place] [address] TarkaGabriela, OD 267 [place] [address] documented as of this encounter Visit Diagnoses Diagnosis Cervicalgia Tobacco dependence syndrome Tobacco use disorder documented in this encounter Additional Health Concerns Assessment Noted Time PHQ-9 Depression Total Score: 0 12/29/19 23 11:51 AM EDT documented as of this encounter Care Teams Transportation Analyst Relationship Specialty Start Date End Date Ciara Garcia MD [address] [place] [address] PCP - General Family Medicine 06/04/19 documented as of this encounter
--- OUTSIDE RECORDS SUMMARY | 2025-04-29 18:16 | XMS_ITS | Encounter Summary ---
Author Organization [employer] Address [address] [facility] 7t [place] [address] Care Team Providers Care Product Development Worker Name Role Phone Ciara Garcia MD Primary Care Provide r Encounter Details Date Type Department Care Team ([facility] st Contact Info) Description 08/06/2024 Telephone [facility] MEDICINE 230 [place] [address] Ciara Garcia MD 230 [place] [address] Social History Tobacco Use Types Packs/Day Years [...] Description 05/08/2025 10:00 AM EDT Clinical Support [facility] MEDICINE [address] [place] [address] Jasmina Coronado RN 05/28/2025 9:00 AM EST Office Visit [facility] MEDICINE [address] [place] [address] Ciara Garcia MD 230 [place] [address] 06/26/2025 2:00 PM EST Office Visit [facility] OPTOMETRY 267 [place] [address] Gabriela Castañeda, OD 267 [place] [address] documented as of this encounter Visit Diagnoses Not on filedocumented in this encounter Additional Health Concerns Assessment Noted Time PHQ-9 Depression Total Score: 0 12/29/19 23 11:51 AM EDT documented as of this encounter Care Teams Product Development Worker Relationship Specialty Start Date End Date Ciara Garcia MD [address] [place] [address] PCP - General Family Medicine 06/04/19 documented as of this encounter
--- OUTSIDE RECORDS SUMMARY | 2025-04-29 18:16 | XMS_ITS | Encounter Summary ---
Author Organization [email or web address] Address [address] [place] [address] 7t [place] [address] Care Team Providers Care Business Rules Analyst Name Role Phone Ciara Garcia MD Primary Care Provide r Encounter Details Date Type Department Care Team (Late st Contact Info) Description 06/13/2022 Abstract [facility] MEDICINE [address] [place] [address] ProviderEdwin MD Social History Tobacco Use Types [...] Description 05/08/2025 10:00 AM EDT Clinical Support [address] [phone] Jasmina Coronado RN 05/28/2025 9:00 AM EST Office Visit [address] [address] Ciara Garcia MD [address] [place] [address] [phone] 06/26/2025 2:00 PM EST Office Visit [facility]RY 267 [place], [place] [phone] Gabriela Castañeda, OD 267 [place] [address] documented as of this encounter Visit Diagnoses Not on filedocumented in this encounter Care Teams Business Rules Analyst Relationship Specialty Start Date End Date Ciara Garcia MD [address] [place] [address] [phone] PCP - General Family Medicine 06/04/19 documented as of this encounter
--- OUTSIDE RECORDS SUMMARY | 2025-04-29 18:16 | XMS_ITS | Encounter Summary ---
Author Organization [employer] Address 75 [facility] 7t [place] [address] Care Team Providers Care Virtual Assistant For Advertisers Name Role Phone Ciara Garcia MD Primary Care Provide r Encounter Details Date Type Department Care Team (Late st Contact Info) Description 09/02/2022 Orders Only [facility] MED & PEDS [address] [place], [place] 1884213 Jason Hatfield MD 230 [place] [address] Social History Tobacco Use Types Packs/Day Years [...] Description 05/08/2025 10:00 AM EDT Clinical Support [facility] MEDICINE 230 [place] [address] Jasmina Coronado RN 05/28/2025 9:00 AM EST Office Visit [facility] MEDICINE 230 [place] [address] Ciara Garcia MD 230 [place] [address] 06/26/2025 2:00 PM EST Office Visit [facility] OPTOMETRY 267 [place] [address] Garry Gabriela, OD 267 [place] [address] documented as of this encounter Procedures Procedure Name Priority Date/Time Associated Diagnosis Comments ALBUMIN, RANDOM URINE W/CREATININE Routine 06/05/2023 2:50 PM EST documented in this encounter Results * (ABNORMAL) Albumin, Random Urine W/Creatinine (06/05/2023 2:50 PM EST) Creatinine, Urine 301.05 mg/dL [facility] Microalbumin Urine 248.0 mg/L H [facility] Microalbum Creatinine Ratio Ur 82.3(H) <30 ug/mg cr [facility] Comment:Albumin/Creatinine R atio Reference Ranges: Normal: < 30 ug/mg creatinine Microalbuminuria: 30 - 300 ug/mg creatinineClinical Albuminuria: > 300 ug/mg creatinine 06/05/2023 2:50 PM EST 06/05/2023 4:05 PM EST us Ciara Celaya MD LAB URINE ORDERABLES Final Result [facility] [address] [place] [phone] documented in this encounter Visit Diagnoses Not on filedocumented in this encounter Care Teams Virtual Assistant For Advertisers Relationship Specialty Start Date End Date Ciara Garcia MD 230 [place] [address] PCP - General Family Medicine 06/04/19 documented as of this encounter
--- OUTSIDE RECORDS SUMMARY | 2025-04-29 18:16 | XMS_ITS | Encounter Summary ---
Author Organization [employer] Address 75 [facility] 7t [place] [address] Care Team Providers Care Offender Employment Specialist Name Role Phone Ciara Garcia MD Primary Care Provide r Reason for Visit * Reason Onset Date Comments FYI 06/20/2024 Encounter Details Date Type Department Care Team ([facility] st Contact Info) Description 06/20/2024 Telephone [facility] MEDICINE 230 [place] [address] Ciara Garcia MD 230 [place] [address] FYI Social History Tobacco Use Types Packs/Day [...] from spouse requesting call back to inform SENIOR CONSTRUCTION PROJECT MANAGER nurse that pt has received medication. documented in this encounter Plan of Treatment Upcoming Encounters Date Type Department Care Team (Late st Contact Info) Description 05/08/2025 10:00 AM EDT Clinical Support [facility] MEDICINE [address] [place] [address] Jasmina Coronado RN 05/28/2025 9:00 AM EST Office Visit [facility] MEDICINE [address] [place] [address] Ciara Gracia MD [address] [place] [address] 06/26/2025 2:00 PM EST Office Visit [facility] OPTOMETRY [address] [place] [address] Gabriela Castañeda, OD [address] [place] [address] documented as of this encounter Visit Diagnoses Not on filedocumented in this encounter Additional Health Concerns Assessment Noted Time PHQ-9 Depression Total Score: 0 12/29/19 23 11:51 AM EDT documented as of this encounter Care Teams Offender Employment Specialist Relationship Specialty Start Date End Date Ciara Garcia MD [address] [place] [phone] PCP - General Family Medicine 06/04/19 documented as of this encounter
--- OUTSIDE RECORDS SUMMARY | 2025-04-29 18:17 | XMS_ITS | Encounter Summary ---
Author Organization [employer] Address [address] [place] [address] 7t [place] [address] Care Team Providers Care Information Security Specialist Name Role Phone Ciara Garcia MD Primary Care Provide r Reason for Visit * Reason Onset Date Comments Med Refill 03/16/2023 Encounter Details Date Type Department Care Team ([facility] st Contact Info) Description 03/16/2023 Telephone [facility] MED & PEDS 505 [place] [address] Ciara Garcia MD 230 [place] [address] Med Refill Social History Tobacco Use Types [...] MG 12 hr tablet Please sent to [facility]/pharmacy #[id number] - [place] - [address] [facility] documented in this encounter Plan of Treatment Upcoming Encounters Date Type Department Care Team (Late st Contact Info) Description 05/08/2025 10:00 AM EDT Clinical Support [facility] MEDICINE [address] [place] [address] Jasmina Coronado RN 05/28/2025 9:00 AM EST Office Visit [facility] MEDICINE 230 [place] [address] Ciara Garcia MD 230 [place] [address] 06/26/2025 2:00 PM EST Office Visit [facility] OPTOMETRY [address] [place] [address] Gabriela Castañeda, OD 267 [place] [address] documented as of this encounter Visit Diagnoses Not on filedocumented in this encounter Additional Health Concerns Assessment Noted Time PHQ-9 Depression Total Score: 0 12/29/19 23 11:51 AM EDT documented as of this encounter Care Teams Information Security Specialist Relationship Specialty Start Date End Date Ciara Garcia MD [address] [place] [phone] PCP - General Family Medicine 06/04/19 documented as of this encounter
--- OUTSIDE RECORDS SUMMARY | 2025-04-29 18:17 | XMS_ITS | Encounter Summary ---
Author Organization [employer] Address [address] [place] [address] 7t [place] [address] Care Team Providers Care Sorter Operator Name Role Phone Ciara Garcia MD Primary Care Provide r Reason for Visit * Reason Comments Med Refill Encounter Details Date Type Department Care Team ([facility] st Contact Info) Description 12/30/2024 Refill [facility] 230 [place] [address] Jeannette Marquez MD 230 [place] [address] Tobacco dependence syndrome; Chronic low back pain [...] Description 05/08/2025 10:00 AM EDT Clinical Support [facility] MEDICINE [address] [place] [address] Jasmina Coronado, MARIBEL 05/28/2025 9:00 AM EST Office Visit [facility] MEDICINE 230 [place] [address] Ciara Garcia MD 230 [place] [address] 06/26/2025 2:00 PM EST Office Visit [facility] OPTOMETRY [address] [place] [address] Gabriela Castañeda, OD 267 [place] [address] documented as of this encounter Visit Diagnoses Diagnosis Tobacco dependence syndrome Tobacco use disorder Chronic low back pain with bilateral sciatica, unspecified back pain laterality documented in this encounter Additional Health Concerns Assessment Noted Time PHQ-9 Depression Total Score: 0 09/27/19 25 9:51 AM EDT documented as of this encounter Care Teams Sorter Operator Relationship Specialty Start Date End Date Ciara Garcia MD 230 [place] [address] PCP - General Family Medicine 06/04/19 documented as of this encounter
--- OUTSIDE RECORDS SUMMARY | 2025-04-29 18:17 | XMS_ITS | Encounter Summary ---
Author Organization [employer] Address [address] [facility] 7t [place] [address] Care Team Providers Care Door Paneler Name Role Phone Ciara Garcia MD Primary Care Provide r Reason for Visit * Reason Comments Med Refill Encounter Details Date Type Department Care Team ([facility] st Contact Info) Description 06/29/2023 Refill [facility]INE [address] [place] [address] Vianney Odom, MARKY [address] [place] [address] Chronic low back pain with bilateral sciatica, [...] Description 05/08/2025 10:00 AM EDT Clinical Support [facility]INE [address] [place] [address] Jasmina Coronado, MARIBEL 05/28/2025 9:00 AM EST Office Visit [facility] [address] [place] [address] Ciara Garcia MD [address] [place] [address] 06/26/2025 2:00 PM EST Office Visit [facility] [address] [place] [address] TarkaGabriela, OD [address] [place] [address] documented as of this encounter Visit Diagnoses Diagnosis Chronic low back pain with bilateral sciatica, unspecified back pain laterality documented in this encounter Additional Health Concerns Assessment Noted Time PHQ-9 Depression Total Score: 0 12/29/19 23 11:51 AM EDT documented as of this encounter Care Teams Door Paneler Relationship Specialty Start Date End Date Ciara Garcia MD [address] [place] [phone] PCP - General Family Medicine 06/04/19 documented as of this encounter
--- OUTSIDE RECORDS SUMMARY | 2025-04-29 18:17 | XMS_ITS | Encounter Summary ---
Author Organization [employer] Address 75 [facility] 7t [place] [address] Care Team Providers Care Corrugator Supervisor Name Role Phone Ciara Garcia MD Primary Care Provide r Reason for Visit * Reason Comments Med Refill Encounter Details Date Type Department Care Team ([facility] st Contact Info) Description 06/29/2023 Refill [facility] MED[facility]INE [address] [place] [address] Ciara Garcia MD [address] [place] [address] Tobacco dependence syndrome; Essential hypertension Social History [...] Description 05/08/2025 10:00 AM EDT Clinical Support [facility] MED[facility]INE [address] [place] [address] Jasmina Coronado RN 05/28/2025 9:00 AM EST Office Visit [facility]INE [address] [place] [address] Ciara Garcia MD [address] [place] [address] 06/26/2025 2:00 PM EST Office Visit [facility] OPTOMETRY [address] [place] [address] TarkaGabriela, OD [address] [place] [address] documented as of this encounter Visit Diagnoses Diagnosis Tobacco dependence syndrome Tobacco use disorder Essential hypertension Unspecified essential hypertension documented in this encounter Additional Health Concerns Assessment Noted Time PHQ-9 Depression Total Score: 0 12/29/19 23 11:51 AM EDT documented as of this encounter Care Teams Corrugator Supervisor Relationship Specialty Start Date End Date Ciara Garcia MD [address] [place] [phone] PCP - General Family Medicine 06/04/19 documented as of this encounter
--- OUTSIDE RECORDS SUMMARY | 2025-04-29 18:17 | XMS_ITS | Encounter Summary ---
Author Organization [employer] Address [address] [place] [address] 7t [place] [address] Care Team Providers Care Small Order Cutter Name Role Phone Ciara Garcia MD Primary Care Provide r Reason for Visit * Reason Onset Date Comments Nurse Triage 01/13/2025 Encounter Details Date Type Department Care Team ([facility] st Contact Info) Description 01/13/2025 Telephone [facility]INE [address] [place] [address] Ciara Garcia MD 230 [place] [address] Nurse Triage Social History Tobacco Use Types [...] Description 05/08/2025 10:00 AM EDT Clinical Support [facility] [address] [place] [address] Jasmina Coronado RN 05/28/2025 9:00 AM EST Office Visit [facility] [address] [place] [address] Ciara Garcia MD [address] [place] [address] 06/26/2025 2:00 PM EST Office Visit [facility] OPTOMETRY [address] [place] [address] Gabriela Castañeda, OD [address] [place] [address] documented as of this encounter Visit Diagnoses Not on filedocumented in this encounter Additional Health Concerns Assessment Noted Time PHQ-9 Depression Total Score: 0 09/27/19 25 9:51 AM EDT documented as of this encounter Care Teams Small Order Cutter Relationship Specialty Start Date End Date Ciara Garcia MD [address] [place] [phone] PCP - General Family Medicine 06/04/19 documented as of this encounter
--- OUTSIDE RECORDS SUMMARY | 2025-04-29 18:17 | XMS_ITS | Encounter Summary ---
Author Organization [employer] Address [address] [place] [address] 7 [place] [address] Care Team Providers Care Prospecting Driller Helper Name Role Phone Ciara Garcia MD Primary Care Provide r Reason for Visit * Reason Onset Date Comments Med Refill 02/16/2023 Encounter Details Date Type Department Care Team ([facility] st Contact Info) Description 02/16/2023 Telephone [facility] MEDICINE [address] [place] [address] Ciara Garcia MD [address] [place] [address] Med Refill Social History Tobacco Use Types [...] Description 05/08/2025 10:00 AM EDT Clinical Support [facility] MEDICINE [address] [place] [address] Jasmina Coronado, RN 05/28/2025 9:00 AM EST Office Visit [facility] MEDICINE [address] [place] [address] Ciara Garcia MD [address] [place] [address] 06/26/2025 2:00 PM EST Office Visit [facility] OPTOMETRY [address] [place] [address] TarGabriela vidal, OD [address] [place] [address] documented as of this encounter Visit Diagnoses Not on filedocumented in this encounter Additional Health Concerns Assessment Noted Time PHQ-9 Depression Total Score: 0 12/29/19 23 11:51 AM EDT documented as of this encounter Care Teams Prospecting Driller Helper Relationship Specialty Start Date End Date Ciara Garcia MD [address] [place] [address] [phone] PCP - General Family Medicine 06/04/19 documented as of this encounter
--- OUTSIDE RECORDS SUMMARY | 2025-04-29 18:17 | XMS_ITS | Encounter Summary ---
Author Organization [employer] Address 75 [facility] 7t [place] [address] Care Team Providers Care Office Coordinator Name Role Phone Ciara Garcia MD Primary Care Provide r Reason for Visit * Reason Comments Med Refill Encounter Details Date Type Department Care Team ([facility] st Contact Info) Description 06/29/2023 Refill [facility] MED[facility] [address] [place] [address] Jamel Duffy AGNP Chronic low back pain [...] Description 05/08/2025 10:00 AM EDT Clinical Support [facility] [address] [place] [address] Jasmina Coronado, RN 05/28/2025 9:00 AM EST Office Visit [facility] [address] [place] [address] Ciara Garcia MD [address] [place] [address] 06/26/2025 2:00 PM EST Office Visit [facility] OPTOMETRY [address] [place] [address] Tarka, Gabriela, OD [address] [place] [address] documented as of this encounter Visit Diagnoses Diagnosis Chronic low back pain with bilateral sciatica, unspecified back pain laterality documented in this encounter Additional Health Concerns Assessment Noted Time PHQ-9 Depression Total Score: 0 12/29/19 23 11:51 AM EDT documented as of this encounter Care Teams Office Coordinator Relationship Specialty Start Date End Date Ciara Garcia MD [address] [place] [address] PCP - General Family Medicine 06/04/19 documented as of this encounter
--- OUTSIDE RECORDS SUMMARY | 2025-04-29 18:17 | XMS_ITS | Encounter Summary ---
Author Organization [employer] Address [address] [place] [address] 7t [place] [address] Care Team Providers Care Doweling Machine Operator Name Role Phone Ciara Garcia MD Primary Care Provide r Reason for Visit * Reason Onset Date Comments Nurse Triage 11/20/2024 Encounter Details Date Type Department Care Team ([facility] st Contact Info) Description 11/20/[address] [facility] MEDICINE [address] [place] [address] Ciara Garcia MD [address] [place] [address] Nurse Triage Social History Tobacco Use Types [...] liquids. Pt is offered to come to [facility] but, requests to be seen in office in the next 2 days. ASK apt with [facility] Caroline 11/22/24 @ 1115am. Pt agrees with [...] acuity questions The caller accepted this outcome. [phone] documented in this encounter Plan of Treatment Upcoming Encounters Date Type Department Care Team (Late st Contact Info) Description 05/08/2025 10:00 AM EDT Clinical Support [facility] MEDICINE [address] [place] [address] Jasmina Coronado RN 05/28/2025 9:00 AM EST Office Visit [facility] [address] [place] [address] Ciara Garcia MD [address] [place], [place] [phone] 06/26/2025 2:00 PM EST Office Visit [facility] [address] [place], [place] [phone] Gabriela Castañeda, OD [address] [place] [address] documented as of this encounter Visit Diagnoses Not on filedocumented in this encounter Additional Health Concerns Assessment Noted Time PHQ-9 Depression Total Score: 0 09/27/19 25 9:51 AM EDT documented as of this encounter Care Teams Doweling Machine Operator Relationship Specialty Start Date End Date Ciara Garcia MD [address] [place] [address] [phone] PCP - General Family Medicine 06/04/19 documented as of this encounter
--- OUTSIDE RECORDS SUMMARY | 2025-04-29 18:17 | XMS_ITS | Encounter Summary ---
Author Organization [employer] Address [address] [facility] 7t [place] [address] Care Team Providers Care Filter Press Pumper Name Role Phone Ciara Garcia MD Primary Care Provide r Reason for Visit * Reason Comments Med Refill Encounter Details Date Type Department Care Team ([facility] st Contact Info) Description 03/04/2025 Refill [facility] MED[facility]INE [address] [place] [address] Ciara Garcia MD [address] [place] [address] Tobacco dependence syndrome Social History Tobacco Use [...] 10:00 AM EDT Clinical Support [facility] MEDICINE [address] [place] [address] Jasmina Coronado, RN 05/28/2025 9:00 AM EST Office Visit [facility] MED[facility]INE [address] [place] [address] Ciara Garcia MD [address] [place] [address] 06/26/2025 2:00 PM EST Office Visit [facility] OPTOMETRY [address] [place] [address] Gabriela Castañeda, OD [address] [place] [address] documented as of this encounter Visit Diagnoses Diagnosis Tobacco dependence syndrome Tobacco use disorder documented in this encounter Additional Health Concerns Assessment Noted Time PHQ-9 Depression Total Score: 0 09/27/19 25 9:51 AM EDT documented as of this encounter Care Teams Filter Press Pumper Relationship Specialty Start Date End Date Ciara Garcia MD [address] [place] [phone] PCP - General Family Medicine 06/04/19 documented as of this encounter
--- OUTSIDE RECORDS SUMMARY | 2025-04-29 18:17 | XMS_ITS | Encounter Summary ---
Author Organization [employer] Address [address] [facility] 7t [place] [address] Care Team Providers Care Biometric Technician Name Role Phone Ciara Garcia MD Primary Care Provide r Reason for Visit * Reason Comments Med Refill Encounter Details Date Type Department Care Team ([facility] st Contact Info) Description 11/26/2024 Refill [facility] MED[facility]INE [address] [place] [address] Jeannette Marquez MD [address] [place] [address] Tobacco dependence syndrome Social History Tobacco Use [...] 05/08/2025 10:00 AM EDT Clinical Support [facility] MEDICINE [address] [place] [address] Jasmina Coronado RN 05/28/2025 9:00 AM EST Office Visit [facility] MEDICINE [address] [place] [address] Ciara Garcia MD [address] [place] [address] 06/26/2025 2:00 PM EST Office Visit [facility] OPTOMETRY [address] [place] [address] Gabriela Castañeda, OD [address] [place] [address] documented as of this encounter Visit Diagnoses Diagnosis Tobacco dependence syndrome Tobacco use disorder documented in this encounter Additional Health Concerns Assessment Noted Time PHQ-9 Depression Total Score: 0 09/27/19 25 9:51 AM EDT documented as of this encounter Care Teams Biometric Technician Relationship Specialty Start Date End Date Ciara Garcia MD [address] [place] [phone] PCP - General Family Medicine 06/04/19 documented as of this encounter
--- OUTSIDE RECORDS SUMMARY | 2025-04-29 18:17 | XMS_ITS | Encounter Summary ---
Author Organization [employer] Address [address] [facility] 7t [place] [address] Care Team Providers Care Safety Manager Name Role Phone Ciara Garcia MD Primary Care Provide r Encounter Details Date Type Department Care Team (Latest Contact Info) Description 04/29/2025 Travel Social History Tobacco Use Types Packs/Day [...] Description 05/08/2025 10:00 AM EDT Clinical Support [facility] [address] [place] [address] Jasmina Coronado, MARIBEL 05/28/2025 9:00 AM EST Office Visit [facility] [address] [place] [address] Ciara Garcia MD [address] [place] [address] 06/26/2025 2:00 PM EST Office Visit [facility] [address] [place] [address] Gabriela Castañeda, OD [address] [place] [address] documented as of this encounter Visit Diagnoses Not on filedocumented in this encounter Additional Health Concerns Assessment Noted Time PHQ-9 Depression Total Score: 0 03/06/20 25 11:41 AM EDT documented as of this encounter Care Teams Safety Manager Relationship Specialty Start Date End Date Ciara Garcia MD [address] [place] [phone] PCP - General Family Medicine 06/04/19 documented as of this encounter
--- OUTSIDE RECORDS SUMMARY | 2025-04-29 18:17 | XMS_ITS | Encounter Summary ---
Author Organization [employer] Address [address] [place] [address] 7t [place] [address] Care Team Providers Care Putty And Caulking Supervisor Name Role Phone Ciara Garcia MD Primary Care Provide r Encounter Details Date Type Department Care Team (Late Contact Info) Description 04/17/2023 Telephone [facility] MEDICINE [address] [place] [address] Ciara Garcia MD [address] [place] [address] Social History Tobacco Use Types Packs/Day Years [...] 05/08/2025 10:00 AM EDT Clinical Support [facility] MEDICINE [address] [place] [address] Jasmina Coronado RN 05/28/2025 9:00 AM EST Office Visit [address] [address] Ciara Garcia MD 230 [place] [address] 06/26/2025 2:00 PM EST Office Visit [facility] OPTOMETRY [address] [place], [place] [address]240 Haydeemarcy Gabriela, OD 267 [place], [place] [phone] documented as of this encounter Visit Diagnoses Not on filedocumented in this encounter Additional Health Concerns Assessment Noted Time PHQ-9 Depression Total Score: 0 12/29/19 23 11:51 AM EDT documented as of this encounter Care Teams Putty And Caulking Supervisor Relationship Specialty Start Date End Date Ciara Garcia MD [address] [place] [address] PCP - General Family Medicine 06/04/19 documented as of this encounter
--- OUTSIDE RECORDS SUMMARY | 2025-04-29 18:17 | XMS_ITS | Clinical Summary ---
Author Organization [employer] Address [address] [place] [address] [address] [place] [address] Care Team Providers Care French Tutor Name Role Phone Ciara Garcia MD Primary Care Provide r Allergies Active Allergy Reactions Criticality Noted Date Comments Pollen Extract 02/10/2023 Other reaction(s): marijuana - causes sweating, nausea, dizziness patient states marijuana causes seizures Medications fluticasone (Flovent) 220 MCG/ACT inhaler Inhale 1 puff every 12 (twelve) hours. 021 Active glucose blood (FREESTYLE LITE) test strip at bed time. 021 Active ipratropium (Atrovent HFA) 17 MCG/ACT inhaler Inhale 2 puffs every 6 (six) hours. 021 Active modafinil (Provigil) 200 MG tablet 023 Active nicotine (Nicoderm, Step 2) 14 MG/24HR patchIndications: Tobacco dependence PLACE 1 PATCH ON THE SKIN 1 TIME EACH DAY AT THE SAME TIME. 42 patch 024 Active loratadine (Claritin) 10 MG tabletIndications :Seasonal allergies TAKE 1 TABLET BY MOUTH EVERYDAY AT BEDTIME 90 tablet 1 024 Active albuterol (Ventolin HFA) 108 (90 Base) MCG/ACT inhalerIndication s:Uncomplicated asthma, unspecified asthma severity, unspecified whether persistent INHALE 2 PUFFS BY MOUTH EVERY 4 TO 6 HOURS IF NEEDED FOR BRONCOSPASM OR SHORTNESS OF BREATH 18 g 2 024 Active nicotine polacrilex (Nicotine Mini) 4 MG lozengeIndication s:Continuous dependence on cigarette smoking Dissolve 1 lozenge (4 mg) in the mouth every 2 (two) hours if needed for smoking cessation. 100 lozenge 025 Active metFORMIN (Glucophage) 500 MG tabletIndications :Type 2 diabetes mellitus without complication, without long-term current use of insulin (HCC) Take 1 tablet (500 mg) by mouth with breakfast and with evening meal. 60 tablet 11 025 2025 Active Diclofenac Sodium 1 % gelIndications:Ce rvicalgia APPLY 2 GRAMS TO AFFECTED AREA TWICE A DAY 100 g 3 025 Active polycarbophil (FiberCon) 625 MG tabletIndications :Constipation, unspecified constipation type Take 1/2-1 tab once daily 30 tablet 3 025 Active finasteride (Proscar) 5 MG tabletIndications :Benign prostatic hyperplasia with urinary frequency Take 1 tablet (5 mg) by mouth Once per day. Do not crush, chew, or split. 30 tablet 025 2025 Active Aspirin Low Dose 81 MG EC tablet TAKE 1 TABLET BY MOUTH EVERY DAY 90 tablet 3 025 Active Vitamin D-[address] 25 MCG (1000 UT) tabletIndications :Vitamin D deficiency TAKE 1 TABLET (25 MCG) BY MOUTH ONCE PER DAY. 90 tablet 025 Active cyanocobalamin (Vitamin B-12) 1000 MCG tabletIndications :B12 deficiency Take 1 tablet (1,000 mcg) by mouth Once per day. 90 tablet 025 Active lisinopril 10 MG tabletIndications :Essential hypertension TAKE 1 TABLET BY MOUTH EVERY DAY IN THE MORNING 90 tablet 1 025 Active tamsulosin (Flomax) 0.4 MG 24 hr capsule TAKE 1 CAPSULE BY MOUTH EVERY DAY IN THE MORNING 90 capsule 025 Active buPROPion SR (Wellbutrin SR) 150 MG 12 hr tabletIndications :Tobacco dependence syndrome TAKE 1 TABLET BY MOUTH TWICE A DAY. DO NOT CRUSH, SPLIT, OR CHEW. 180 tablet 025 Active naloxone (Narcan) 4 mg/0.1 mL nasal sprayIndications: Chronic low back pain with bilateral sciatica, unspecified back pain laterality Administer 1 spray (4 mg) into affected nostril(s) if needed for opioid reversal. 2 each 3 025 Active Tirzepatide (Mounjaro) 2.5 MG/0.5ML solution auto-injectorIndi cations:Type 2 diabetes mellitus without complication, without long-term current use of insulin (HCC) Inject 2.5 mg under the skin 1 (one) time per week. 2 mL 2 025 Active baclofen (Lioresal) 10 MG tabletIndications :Cervicalgia TAKE 1 TABLET (10 MG) BY MOUTH EVERY 8 (EIGHT) HOURS IF NEEDED FOR MUSCLE SPASMS. 60 tablet 1 025 Active atorvastatin (Lipitor) 80 MG tabletIndications :Hyperlipidemia, unspecified hyperlipidemia type Take 1 tablet (80 mg) by mouth Once per day. 30 tablet 11 025 2025 Active oxyCODONE ER (OxyCONTIN) 80 MG 12 hr tabletIndications :Other chronic pain Take 1 tablet (80 mg) by mouth every 8 (eight) hours for 28 days. Do not start before April 04, 2025. 84 tablet 025 2024 Active furosemide (Lasix) 20 MG tabletIndications :Localized swelling of both lower legs,Diastolic dysfunction Take 1 tablet (20 mg) by mouth Once per day. 30 tablet 025 Active diphenhydrAMINE (BENADryl) 25 MG tabletIndications :Rash Take 1 tablet (25 mg) by mouth every 8 (eight) hours if needed for itching. 30 tablet 025 Active predniSONE (Deltasone) 20 MG tabletIndications :Asthma Take 2 tablets (40 mg) by mouth Once per day for 3 days, THEN 1 tablet (20 mg) Once per day for 2 days, THEN 0.5 tablets (10 mg) Once per day for 2 days. 9 tablet 025 2024 Active amLODIPine (Norvasc) 10 MG tablet Take 1 tablet by mouth at bed time. 021 2024 Discontinued(T herapy completed) amLODIPine (Norvasc) 5 MG tablet Take 5 mg by mouth in the morning. 023 2024 Discontinued(T herapy completed) ibuprofen 800 MG tabletIndications :Chronic low back pain with bilateral sciatica, unspecified back pain laterality TAKE 1 TABLET BY MOUTH EVERY 8 HOURS WITH FOOD 90 tablet 025 2024 Discontinued oxyCODONE ER (OxyCONTIN) 80 MG 12 hr tabletIndications :Other chronic pain Take 1 tablet (80 mg) by mouth every 8 (eight) hours for 28 days. Do not start before March 07, 2025. 84 tablet 025 2024 Discontinued(R eorder (will not trigger notification to Pharmacy)) furosemide (Lasix) 20 MG tabletIndications :Localized swelling of both lower legs Take 1 tablet (20 mg) by mouth Once per day for 5 days. 5 tablet 025 2024 Discontinued(R eorder (will not trigger notification to Pharmacy)) ibuprofen 800 MG tabletIndications :Chronic low back pain with bilateral sciatica, unspecified back pain laterality TAKE 1 TABLET BY MOUTH EVERY 8 HOURS WITH FOOD 90 tablet 025 2024 Discontinued(T herapy completed) Active Problems Problem Noted Date Diagnosed Date Rash 04/29/2025 Assessment & Plan (04/29/2025 3:54 PM EDT): Patient here with a new onset of [...] treatment and normal blood work, referral to water attendant discussed. Advised to monitor for possible household infestation (e.g., bed bugs). - Risks and side effects: Benadryl may cause drowsiness; patient notified. Chronic diastolic (congestive) heart failure Assessment & Plan (04/29/2025 4:02 PM EDT): Pt with acute on chronic lower extremity edema in the setting on hypertension, SUNNY, history dyastolic dysfunction. Today c/o sob but attributes it to his COPD Plan: ECHO, restart Lasix Pending on ECHO he might need Cardiology evaluation Localized swelling of both lower legs 04/29/2025 Assessment & Plan (04/29/2025 3:56 PM EDT): Patient here with c/o bilateral LE edema [...] instructions to monitor blood pressure at home and reduce dose or discontinue if blood pressure drops below 110 mmHg systolic. Ordered echocardiogram to assess cardiac function. Ordered blood work to evaluate for cardiac and other causes of fluid retention. Follow- up with Dr. Peterson on May 08, 2025 to review results. 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 [...] variability of the sampling which decreases accuracy. Steatosis of liver 06/06/2023 Preventative health care [...] injury 03/24/2021 Hypertension 11/01/2018 Assessment & Plan (04/29/2025 4:06 PM EDT): BP today within normal limits He apparently [...] 10/31/2024 CREATININE 1.17 03/25/2025 CREATININE 1.12 10/31/2024 Assessment & Plan (09/26/2024 12:13 PM EDT): [...] heart failure Hyperlipidemia 04/03/2012 Assessment & Plan (04/03/2025 1:57 PM EDT): Lab Results Component Value Date CHOL 241 (H) 03/25/2025 CHOL 183 06/05/2023 TRIG 374 (H) 03/25/2025 TRIG 116 06/05/2023 HDL 61 03/25/2025 HDL 65 06/05/2023 LDLCHOLCAL 106 (H) 03/25/2025 LDLCHOLCAL 95 06/05/2023 -continue lifestyle modification -follow-up with PCP, has appt in May 2025. 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[facility]) 08/25/2022 12/30/2024 Hypercholesterolemia 08/25/2022 023 Impaired fasting glucose 12/09/2014 Encounters Date Type Department Care Team Description 04/29/2025 3:00 PM EDT Office Visit [facility] [address] [place] [phone] Thiago Calvert MD Rash (Primary Dx); Localized swelling of both lower legs; Chronic diastolic (congestive) heart failure (HCC); Diastolic dysfunction; Primary hypertension; Elevated LFTs; Urinary frequency 04/29/2025 Travel 04/29/2025 Telephone [facility] [address] [place] [phone] Ciara Garcia MD Nurse Triage 04/09/2025 Refill [facility] [address] [place] [phone] Ciara Garcia MD Chronic low back pain with bilateral sciatica, unspecified back pain laterality 04/03/2025 1:40 PM EDT Office Visit [facility] [address] [place] [phone] Missy Gonzalez MD Hyperlipidemia, unspecified hyperlipidemia type (Primary Dx); Localized swelling of both lower legs 04/02/2025 Refill [facility] [address] [place] [phone] Ciara Garcia MD Other chronic pain 03/25/2025 10:20 AM EDT Office Visit [facility] [address] [place] [phone] Missy Gonzalez MD Localized swelling of both lower legs (Primary Dx); Type 2 diabetes mellitus without complication, without long-term current use of insulin (CMS/[facility]) 03/25/2025 Results Follow-Up [facility] [address] [place] [phone] Ciara Garcia MD Lipid Panel with Reflex to Direct LDL 03/25/2025 Orders Only [address] [address] Ciara Garcia MD Hyperlipidemia, unspecified hyperlipidemia type (Primary Dx) 03/25/2025 Results Follow-Up [facility] [address] [place] [phone] Roblero, Audrey, ANP Urinalysis Complete, Albumin, Random Urine W/Creatinine 03/25/2025 Orders Only [address] [address] Ciara Garcia MD 03/25/2025 Travel 03/25/[address] [address] Ciara Garcia MD Nurse Triage 03/07/2025 Refill [facility] [address] [place] [address] Ciara Garcia MD Cervicalgia 03/06/2025 Orders Only [address] [address] Ciara Garcia MD Type 2 diabetes mellitus without complication, without long-term current use of insulin ([facility]) (Primary Dx) 03/06/2025 Travel 03/05/2025 Refill [facility] [address] [place] [phone] Ciara Garcia MD Other chronic pain 03/05/2025 Telephone [facility] [address] [place] [phone] Ciara Garcia MD chart prep 03/04/2025 Refill [facility] [address] [place] [phone] Ciara Garcia MD Tobacco dependence syndrome 02/11/2025 10:00 AM EDT Clinical Support [facility] [address] [place] [address] Jasmina Coronado, RN Long-term current use of opiate analgesic (Primary Dx) 02/11/2025 Refill [facility] [address] [place] [address] Jasmina Coronado teacher music low back pain with bilateral sciatica, unspecified back pain laterality 02/11/2025 Travel 02/06/2025 Telephone [facility] [address] [place] [phone] Ciara Garcia MD Nurse Triage 02/04/2025 Orders Only GENERIC EXTERNAL DATA DEPARTMENT Provider, Generic External Data 02/03/2025 Orders Only [facility] External Provider, [facility] 02/03/2025 Refill [facility] [address] [place] [address] Ciara Garcia MD Other chronic pain 01/28/2025 Refill [facility] [address] [place] [address] Jeannette Marquez MD Chronic low back pain with bilateral sciatica, unspecified back pain laterality 01/28/2025 Refill [facility] [address] [place] [address] Ciara Garcia MD Tobacco dependence syndrome 01/27/2025 Orders Only GENERIC EXTERNAL DATA DEPARTMENT Provider, Generic External Data from Last 3 Months Immunizations Immunization Administration [...] Mass Index 37.54 04/29/2025 3:00 PM EDT Plan of Treatment Upcoming Encounters Date Type Department Care Team (Late st Contact Info) Description 05/08/2025 10:00 AM EDT Clinical Support [facility] [address] [place] [address] Jasmina Coronado RN 05/28/2025 9:00 AM EST Office Visit [facility] [address] [place] [address] Ciara Garcia MD [address] [place] [address] 06/26/2025 2:00 PM EST Office Visit [facility] [address] [place] [address] Gabriela Castañeda, OD [address] [place] [address] Health Maintenance Due Date Last Done Comments [...] Panel 03/25/2026 03/25/2025, 05/18, 10/07/2020 Tobacco Screening 04/03/2026 04/03/2025 DTaP/Tdap/Td Vaccines (3 - Td or Tdap) [...] Procedure Name Priority Date/Time Associated Diagnosis Comments CBC WITH AUTO DIFFERENTIAL Routine 04/29/2025 3:36 PM EDT Localized swelling of both lower legs Rash Primary hypertension Diastolic dysfunction Elevated LFTs Urinary frequency URINALYSIS, COMPLETE, WITH REFLEX TO CULTURE Routine [...] hypertension Diastolic dysfunction Elevated LFTs Urinary frequency LIPID PANEL WITH REFLEX TO DIRECT LDL [...] without long-term current use of insulin (CMS/HCC) ALBUMIN, RANDOM URINE W/CREATININE Routine 03/25/2025 10:49 [...] ROUTINE Routine 01/27/2025 7:22 AM EDT POCT GLYCATED HEMOGLOBIN, TOTAL Routine 12/30/2024 9:26 AM EDT Type 2 diabetes mellitus without complication, without long-term current use of insulin (CMS/HCC) HEPATITIS PANEL, GENERAL Routine 12/19/2023 9:17 AM EDT from Last 3 Months or Most Recently Relevant to Health Maintenance Results * (ABNORMAL) Urinalysis, Complete, with Reflex to Culture (04/29/2025 3:36 PM EDT) Color Urine Yellow [facility] Appearance Urine Clear [facility] PH 5.5 5.0 - 9.0 [facility] Glucose Urine UA Negative Negative mg/dL [facility] Urine Blood Negative Negative [facility] Specific [place] - Urine 1.025 1.005 - 1.025 [facility] Urine Protein 30 (1+)(A) Neg-Trace mg/dL [facility] Urine Ketones Negative Negative mg/dL [facility] Nitrite Urine Negative Negative [facility] Leukocyte Esterase Urine Negative Negative [facility] RBC Urine 0-2 0 - 2 /HPF [facility] Urine WBC 0-5 0 - 5 /HPF [facility] Urine Squamous Epithelial Cell 0-2 0 - 2 /HPF [facility] Urine Bacteria None Seen None Seen [facility] Hyaline Casts, Urine 0-2 0 - 2 /LPF [facility] Urine 04/29/2025 3:36 PM EDT 04/29/2025 4:05 PM EDT Narrative [facility] - 04/29/2025 4:35 PM EDT Urine, Clean Catch us Thiago Mcdaniel MD LAB URINE ORDERABLES Final Result [facility] [address] [place] [phone] * (ABNORMAL) CBC auto differential (04/29/2025 3:36 PM EDT) Only the most recent of2 resultswithin the time period is included. White Blood Count 12.4(H) 4.8 - 10.8 X10*3/uL [facility] Red Blood Count 4.78 4.60 - 5.80 X10*6/uL [facility] Hemoglobin 14.8 14.0 - 18.0 g/dl [facility] Hematocrit 46.8 42.0 - 52.0 % [facility] Mean Corpuscular Volume 97.9 80.0 - 98.0 fL [facility] Mean Corpuscular Hemoglobin 31.0 27.0 - 33.0 pg [facility] Mean Corpuscular HGB Conc 31.6 31.0 - 36.0 g/dl [facility] Red Cell Distribution Width 13.6 11.0 - 16.0 % [facility] Platelet Count 188 160 - 400 X10*3/uL [facility] Mean Platelet Volume 11.1 9.4 - 12.4 fL [facility] Neutrophils Percent Auto 66.5 45 - 73 % [facility] Imm Gran Pct Auto 0.9(H) 0.0 - 0.4 % [facility] Lymphocytes Percent Auto 19.4(L) 20 - 40 % [facility] Monocytes Percent Auto 6.8 2 - 11 % [facility] Eosinophils Percent Auto 5.4(H) 0 - 4 % [facility] Basophils Percent Auto 1.0 0 - 2 % [facility] NRBC Pct Auto 0.0 0.0 - 0.2 /100WBC [facility] Neutrophils Absolute Auto 8.2 2.0 - 8.3 x10*3/uL [facility] Imm Gran Abs Auto 0.11(H) 0.00 - 0.03 X10*3/uL [facility] Lymphocytes Absolute Auto 2.4 1.2 - 4.9 X10*3/uL [facility] Monocytes Absolute Auto 0.8 0.1 - 1.2 X10*3/uL [facility] Eosinophils Absolute Auto 0.7(H) 0.0 - 0.4 X10*3/uL [facility] Basophils Absolute Auto 0.1 0.0 - 0.2 X10*3/uL [facility] NRBC Abs Auto 0.000 0.0 - 0.012 X10*3/uL [facility] Blood Venous blood specimen / Unknown 04/29/2025 3:36 PM EDT 04/29/2025 4:04 PM EDT us Thiago Mcdaniel MD LAB BLOOD ORDERABLES Final Result [facility] [address] [place] [address] [phone] * TSH with Reflex to Free T4 (04/29/2025 3:35 PM EDT) Only the most recent of2 resultswithin the time period is included. TSH reflex Free T4 1.11 0.32 - 4.0 uIU/mL [facility] Blood Venous blood specimen / Unknown 04/29/2025 3:35 PM EDT 04/29/2025 4:04 PM EDT us Thiago Mcdaniel MD LAB BLOOD ORDERABLES Final Result [facility] [address] [place] [address] [phone] * (ABNORMAL) Comprehensive Metabolic Panel (04/29/2025 3:35 PM EDT) Sodium 146(H) 135 - 145 mmol/L [facility] Potassium 4.7 3.3 - 5.1 mmol/L [facility] Chloride 108 96 - 108 mmol/L [facility] Carbon Dioxide 29 22 - 29 mmol/L [facility] Anion Gap 14 12 - 20 [facility] Urea Nitrogen (BUN) 16 9 - 16 mg/dL [facility] Creatinine, Serum 1.18 0.5 - 1.4 mg/dL [facility] Estimated Glomerular Filt Rate >60 [facility] Comment:Chronic Kidney Disea se: Estimated GFR < 60 mL/min/1.68v2Vmvuxh Kidney Disease: Estimated GFR < 15 mL/min/1.73m2 Glucose 115 60 - 115 mg/dL [facility] Calcium 9.3 8.4 - 10.2 mg/dL [facility] Bilirubin, Total 0.3 0.0 - 1.0 mg/dL [facility] Aspartate Amino Transferase 49(H) 5 - 37 U/L [facility] Alanine Aminotransferase 60(H) 0 - 40 U/L [facility] Total Protein 6.6 6.5 - 8.0 g/dL [facility] Albumin Level 4.4 3.5 - 5.0 g/dL [facility] Alkaline Phosphatase 125(H) 39 - 117 U/L [facility] Blood Venous blood specimen / Unknown 04/29/2025 3:35 PM EDT 04/29/2025 4:04 PM EDT us Thiago Mcdaniel MD LAB BLOOD ORDERABLES Final Result Performing Organization Address [facility] Co de Phone Number [facility] [address] [place] [address] [phone] * (ABNORMAL) Lipid Panel with Reflex to Direct LDL (03/25/2025 10:49 AM EDT) Triglycerides 374(H) <150 mg/dL [facility] Comment:Desirable Triglyceri de: less than 150 mg/dLBorderline High Triglyceride 150-199 mg/dLHigh Triglyceride: 200-499 mg/dLVery High Triglyceride: greater than or equal to 5OO mg/dL Cholesterol 241(H) <200 mg/dL [facility] Comment:Desirable Cholestero l: less than 200 mg/dLBorderline High Cholesterol: 200-239 mg/dLHigh Cholesterol: greater than 239 mg/dL LDL Cholesterol Calculated 106(H) <100 mg/dL [facility] Comment:Desirable LDL: less than 100 mg/dLNear Optimal/Above Optimal LDL: 110- 129 mg/dLBorderline High LDL: 130-159 mg/dLHigh LDL: 160-189 mg/dLVery High LDL: greater than or equal to 190 mg/dL HDL Cholesterol 61 >40 mg/dL [facility] Comment:Desirable HDL: great er than 40 mg/dL Note: This HDL assay may give artificially low results in patients with liver disease. 03/25/2025 10:4 9 AM EDT 03/25/2025 11:24 AM EDT us Ciara Celaya MD LAB BLOOD ORDERABLES Final Result Performing Organization Address City/[facility]/ZIP Co de Phone Number [facility] [address] [place] [address] [phone] * (ABNORMAL) Albumin, Random Urine W/Creatinine (03/25/2025 10:49 AM EDT) Only the most recent of2 resultswithin the time period is included. Creatinine, Urine 172.12 mg/dL [facility] Microalbumin Urine 78.0 mg/L [facility] Microalbum Creatinine Ratio Ur 45.3(H) <30 ug/mg cr [facility] Comment:Albumin/Creatinine R atio Reference Ranges: Normal: < 30 ug/mg creatinine Microalbuminuria: 30 - 300 ug/mg creatinineClinical Albuminuria: > 300 ug/mg creatinine Urine 03/25/2025 10:4 9 AM EDT 03/25/2025 12:14 PM EDT Missy Gonzalez MD LAB URINE ORDERABLES Final Result [facility] [address] [place] [address] [phone] * Urinalysis Complete (03/25/2025 10:49 AM EDT) Color Urine Yellow [facility] Appearance Urine Clear [facility] PH 5.5 5.0 - 9.0 [facility] Glucose Urine UA Negative Negative mg/dL [facility] Urine Blood Negative Negative [facility] Specific [place] - Urine 1.025 1.005 - 1.025 [facility] Urine Protein Trace Neg-Trace mg/dL [facility] Urine Ketones Negative Negative mg/dL [facility] Nitrite Urine Negative Negative [facility] Leukocyte Esterase Urine Negative Negative [facility] RBC Urine 0-2 0 - 2 /HPF [facility] Urine WBC 0-5 0 - 5 /HPF [facility] Urine Squamous Epithelial Cell 0-2 0 - 2 /HPF [facility] Urine Bacteria None Seen None Seen [facility] Hyaline Casts, Urine 3-5 0 - 2 /LPF [facility] Urine (Urine, Random) 03/25/2025 10:49 AM EDT 03/25/2025 11:17 AM EDT Audrey RAMIREZ LAB URINE ORDERABLES Final Resul t Performing Organization Address [facility] Co de Phone Number [facility] [address] [place] [address] [phone] * (ABNORMAL) Hepatic Function Panel (03/25/2025 10:49 AM EDT) Bilirubin, Total 0.4 0.0 - 1.0 mg/dL [facility] Bilirubin, Direct 0.1 0.0 - 0.5 mg/dL [facility] Aspartate Amino Transferase 44(H) 5 - 37 U/L [facility] Alanine Aminotransferase 45(H) 0 - 40 U/L [facility] Total Protein 6.7 6.5 - 8.0 g/dL [facility] Albumin Level 4.5 3.5 - 5.0 g/dL [facility] Alkaline Phosphatase 112 39 - 117 U/L [facility] Blood Venous blood specimen / Unknown 03/25/2025 10:49 AM EDT 03/25/2025 11:24 AM EDT Missy Gonzalez MD LAB BLOOD ORDERABLES Final Result Performing Organization Address [facility] Co de Phone Number [facility] [address] [place] [phone] * (ABNORMAL) Basic Metabolic Panel (03/25/2025 10:49 AM EDT) Sodium 144 135 - 145 mmol/L [facility] Potassium 4.4 3.3 - 5.1 mmol/L [facility] Chloride 107 96 - 108 mmol/L [facility] Carbon Dioxide 29 22 - 29 mmol/L [facility] Anion Gap 12 12 - 20 [facility] Urea Nitrogen (BUN) 20(H) 9 - 16 mg/dL [facility] Creatinine, Serum 1.17 0.5 - 1.4 mg/dL [facility] Estimated Glomerular Filt Rate >60 [facility] Comment:Chronic Kidney Disea se: Estimated GFR < 60 mL/min/1.15n2Etadfv Kidney Disease: Estimated GFR < 15 mL/min/1.73m2 Glucose 104 60 - 115 mg/dL [facility] Calcium 9.3 8.4 - 10.2 mg/dL [facility] Blood Venous blood specimen / Unknown 03/25/2025 10:49 AM EDT 03/25/2025 11:24 AM EDT us Missy Gonzalez MD LAB BLOOD ORDERABLES Final Result [facility] [address] [place] [address] [phone] * POCT HERBER-14 Urine Drug Screen (02/11/2025 10:45 AM EDT) THC Negative Negative Cocaine Screen, Urine Negative [...] procedure / Unknown 02/11/2025 10:45 AM EDT Jasmina Santos RN - 02/11/2025 10:45 AM EDT UTOX cup Lot#[id number] Exp. 04/22/26 Internal Pass Control us Ciara Celaya MD POINT OF CARE TEST EN TER/EDIT ORDERABLES Final Result * CT Lung Screening Low dose (02/05/2025 9:07 AM EDT) Anatomical Region Laterality Modality Lung Computed Tomogra phy 02/05/2025 9:07 AM EDT Narrative 02/05/2025 9:08 AM EDT [address] [address] [address] Scan Report Signed Patient: Efraín Bravo Jr MR#: [id number] : 1960 Acct:[id number] Age/Sex: 64 / M ADM Date: 02/03/25 Loc: HO.CT Attending Dr: Neena Colunga PA-C Ordering Physician: Neena Colunga PA-C Date of Service: 02/03/25 Procedure(s): CT lung screening Accession Number(s): [id number] cc: Ciara Garcia MD; Neena Colunga PA-C Report Number: [id number]: Total DLP = 77.00 mGy-cm CLINICAL HISTORY: [...] in OV> 02/05/25907 DD/ 6 TD/TT: 02/05/25906 Technical Service Specialist: Procedure Note Donotuseinterpreter, Image - 02/05/[address] [place] [address] [address] Scan Report Signed Patient: Efraín Bravo [facility]#: [id number] : 9Acct:[id number] Age/Sex: 64 / MADM Date: 02/03/25 Loc: HO.CT Attending Dr: Neena Colunga PA-C Ordering Physician: Neena Colunga PA-C Date of Service: 02/03/25 Procedure(s): CT lung screening Accession Number(s): [id number] cc: Ciara Garcia MD; Neena Colunga PA-C Report Number: [id number]: Total DLP = 77.00 mGy-cm CLINICAL HISTORY: F17.210 - Nicotine dependence, cigarettes, uncomplicated CT lung cancer screening (LDCT) Comparison: CR/SR - XR CHEST 1V - 01/17/25 08:[address]/SR - ABDOMEN ABD_PELVIS_IV_CONTRAST (ADULT) - 7/1/25 21:32 EDT Technique: Axial CT images of [...] in OV> 02/05/25907 DD/ 6 TD/TT: 02/05/25906 Technical Service Specialist: [facility] External Provider IMG CT PROCEDURES Final Result * Gross Exam without slides (02/04/2025 8:26 AM EDT) 02/04/2025 8:26 AM EDT 02/04/2025 9:25 AM EDT [facility] - 02/05/2025 10:08 AM EDT ----- ------- Name: Efraín Bravo Jr Age/Sex: 64/M : 1960 Unit#: [id number] Attend Dr: Vicky Johnson MD Re02/04/25 Status: [facility] Location: [facility] Disch: ----- ------- SPEC : [id number] RECD: 02/04/25 STATUS: SILVANA CARRIZALES NUM: [id number] CRYSTAL: 02/04/[address] [facility] [address]: Vicky Johnson MD ENTERED: 02/04/25 SP TYPE: Surgical OTHR DR: Ciara Garcia MD ORDERED: GO Diagnosis Left ureteral stone (removal): Calculus material identified; macroscopic description only. Comment: The entire specimen was sent for chemical analysis. Please see the laboratory portion of the EMR for the outside report from [employer]. Clinical History Kidney stone Material Received Left ureteral stone Gross Description Received fresh labeled left ureteral stone are three hard de los santos-brown calculi ranging from 0.25-0.35 cm with scant blood, forwarded to [employer] [facility] [employer] for chemical analysis. No soft tissue is identified. Gross description only. CEDS IHC S/NG Disclaimer NOTE: Unless otherwise stated, all tissue is formalin-fixed and paraffin-embedded. Some or all of the immunohistochemical tests reported herein may have been developed and their performance characteristics determined by [facility]. They have not been cleared or approved by the U.S. Food and Drug Administration (FDA). However, the FDA has determined that such clearance or approval is not necessary. This laboratory is certified under the Clinical Laboratory Improvement Amendments of 1988 (CLIA) as qualified to perform high complexity clinical laboratory testing. Copies To: Vicky Johnson MD [facility] [address] [place] [address] [address] [place] [address] [email or web address] CONTINUED ON NEXT PAGE ----- ------- Name: Efraín Bravo Jr Age/Sex: 64/M : 1960 Unit#: [id number] Attend Dr: Vicky Johnson MD Re02/04/25 Status: [facility] Location: [facility] Disch: ----- ------- SPEC : [id number] RECD: 02/04/25 STATUS: SILVANA CARRIZALES NUM: [id number] CRYSTAL: 02/04/[address] [facility] [address]: Vicky Johnson MD ENTERED: 02/04/25 SP TYPE: Surgical OTHR DR: Ciara Garcia MD ORDERED: GO Copies To: (Continued) Ciara Garcia MD [facility] [address] [place] [address] ----- ------- Signed (signature on file) Sheyla Almas 02/05/25 1008 ----- ------- END OF REPORT us Generic External Data Provider LAB BLOOD ORDERAB LES Final Result [facility] [address] [place] [address] [phone] * Stone Analysis with Image (02/04/2025 8:26 AM EDT) Component 1 SEE NOTE [facility] Comment:Calcium Oxalate [place] hydrate (Whewellite) 90%Uric Acid 10% Stone Weight 0.027 g [facility] Comment:Formalin, surgical g el, tape adhesive or transport mediainterfere with the analytical procedure. Follow up testingwith the UroRisk(R) Panel is suggested for affected samples,if clinically indicated.This test was developed and its analytical performancecharacteristics have been determined by [employer].It has not been cleared or approved by the FDA. This assayhas been validated pursuant to the CLIA regulations and isused for clinical purposes.THIS TEST WAS PERFORMED AT:[employer] [id number] BRYAN CHAVEZ [id number] MOELLER MD,PHD,AROLDO [facility] 02/04/2025 8:26 AM EDT 02/04/2025 9:25 AM EDT Narrative [facility] - 02/12/2025 7:03 PM EDT [id number] us Ciara Celaya MD LAB BLOOD ORDERABLES Final Result [facility] [address] [place] [phone] * FL Guidance in OR (02/04/2025 7:45 AM EDT) Anatomical Region Laterality Modality X-Ray Angiograph y 02/04/2025 7:45 AM EDT Narrative 02/04/2025 8:48 AM EDT [address] [address] Fluoroscopy Report Signed Patient: Efraín Bravo Jr MR#: [id number] : 1960 Acct:[id number] Age/Sex: 64 / M ADM Date: 02/04/25 Loc: HO.[facility] Attending Dr: Vicky Johnson MD Ordering Physician: Vicky Johnson MD Date of Service: 02/04/25 Procedure(s): FL guidance in OR Accession Number(s): [id number] cc: Vicky Johnson MD; Ciara Garcia MD [...] signed by Tanner Wells MD in OV> 02/04/25844 DD/ 4 TD/TT: 02/04/25826 Technical Service Specialist: Procedure Note Donotuseinterpreter, Image - 02/04/[address] [address] Fluoroscopy Report Signed Patient: Efraín Bravo [facility]#: [id number] : 9Acct:[id number] Age/Sex: 64 / MADM Date: 02/04/25 Loc: .[facility] Attending Dr: Vicky Johnson MD Ordering Physician: Vicky Jonhson MD Date of Service: 02/04/25 Procedure(s): FL guidance in OR Accession Number(s): [id number] cc: Vicky Johnson MD; Ciara Garcia MD [...] in OV> 02/04/2545 DD/ 4 TD/TT: 02/04/25826 Technical Service Specialist: [facility] External Provider IMG IR PROCEDURES Final Result * (ABNORMAL) Glucose, Whole Blood (02/04/2025 6:30 AM EDT) Glucose, Whole Blood 124(H) 60 - 115 mg/dL [facility] Comment:METER #: [id number] 02/04/2025 6:30 AM EDT 02/04/2025 6:33 AM EDT Generic External Data Provider LAB BLOOD ORDERAB LES Final Result Performing Organization Address City/[facility]/ZIP Co de Phone Number [facility] [address] [place] [phone] * Culture, Urine, Routine (01/27/2025 7:22 AM EDT) Urine Urine specimen obtained by clean catch procedure / Unknown 01/27/2025 7:22 AM EDT 01/27/2025 4:17 PM EDT Comment:CC Narrative [facility] - 01/29/2025 11:04 AM EDT Urine Culture No growth. Specimen Source: Urine clean catch Generic External Data Provider LAB MICROBIOLOGY - GENERAL ORDERABLES Final Result Performing Organization Address [facility] Co de Phone Number [facility] [address] [place] [phone] * (ABNORMAL) POCT HGB A1C (12/30/2024 9:26 AM EDT) Pathologist [facility] Hemoglobin A1C 6.9(A) 4.0 - 6.0 % [employer] Lot # [id number] Lot# Expiration Date ,[id number] Blood 12/30/2024 9:26 AM EDT Ciara Celaya MD POINT OF CARE TEST EN TER/EDIT ORDERABLES Final Result * Hepatitis Panel, General (12/19/2023 9:17 AM EDT) Hepatitis A IgM Nonreactive Nonreactive [facility] Comment:IgM antibodies to PALENCIA V not detected; does not exclude earlyacute or recovered HAV infection. ~Hepatitis B Surface Antibody REACTIVE Nonreactive [facility] Comment:REACTIVE: > 11.99 mI U/mL Hepatitis B Core Antibody Nonreactive Nonreactive [facility] Hepatitis C Antibody Nonreactive Nonreactive [facility] Comment:Antibodies to HCV no t detected; does not exclude early acuteHCV infection. Hepatitis B Surface Ag Negative Negative [facility] 12/19/2023 9:17 AM EDT 12/19/2023 9:17 AM EDT us Generic External Data Provider LAB BLOOD ORDERAB LES Final Result [facility] [address] [place] [phone] [phone] from Last 3 Months or Most Recently Relevant to Health Maintenance Insurance [place] [address] [place] [id number] [facility] STANDARD Care Teams French Tutor Relationship Specialty Start Date End Date Ciara Garcia MD [address] [place] [phone] PCP - General Family Medicine 06/04/19
--- OUTSIDE RECORDS SUMMARY | 2025-04-29 18:17 | XMS_ITS | Encounter Summary ---
Author Organization [employer] Address [address] [facility] 7t [place] [address] Care Team Providers Care Chief Nurse Anesthetist Name Role Phone Ciara Garcia MD Primary Care Provide r Reason for Visit * Reason Comments Med Refill Encounter Details Date Type Department Care Team ([facility] st Contact Info) Description 09/21/2023 Refill [facility] [address] [place] [address] Ciara Garcia MD [address] [place] [address] Other chronic pain Social History Tobacco Use [...] Description 05/08/2025 10:00 AM EDT Clinical Support [facility] [address] [place] [address] Jasmina Coronado RN 05/28/2025 9:00 AM EST Office Visit [facility] [address] [place] [address] Ciara Garcia MD [address] [place] [address] 06/26/2025 2:00 PM EST Office Visit [facility] [address] [place], [place] [phone] Gabriela Castañeda, OD [address] [place] [address] documented as of this encounter Visit Diagnoses Diagnosis Other chronic pain documented in this encounter Additional Health Concerns Assessment Noted Time PHQ-9 Depression Total Score: 0 12/29/19 23 11:51 AM EDT documented as of this encounter Care Teams Chief Nurse Anesthetist Relationship Specialty Start Date End Date Ciara Garcia MD [address] [place] [phone] PCP - General Family Medicine 06/04/19 documented as of this encounter
--- OUTSIDE RECORDS SUMMARY | 2025-04-29 18:17 | XMS_ITS | Encounter Summary ---
Author Organization [employer] Address [address] [facility] 7t [place] [address] Care Team Providers Care Accredited Legal Secretary Name Role Phone Ciara Garcia MD Primary Care Provide r Reason for Visit * Reason Onset Date Comments Nurse Triage 04/29/2025 Encounter Details Date Type Department Care Team ([facility] st Contact Info) Description 04/29/2025 Telephone [facility] [address] [place] [address] Ciara Garcia MD [address] [place] [address] Nurse Triage Social History Tobacco Use Types [...] encounter Miscellaneous Notes * Telephone Encounter - Ct Badillo RN - 04/29/2025 2:17 PM EDT TC placed to pt for triage. Pt denies trouble breathing. Pt reports widespread red rash and itchingall over body. Pt reports this began a day and a half ago. Pt states it feels like they have itching in their head they have the same itching that they have on their arms but in their head. Pt deniesnew medications, products, foods. Pt denies fever, blisters, sores. Pt reports they had a rash likethis 10-12 years ago and they were given an injection of benadryl and it improved. Pt denies takingOTC benadryl at this time. Pt reports bilateral swelling in feet. Pt reports PCP is aware. Pt reports they have been trying to elevate feet to reduce swelling. Pt denies swelling in other locations. Pt reports they were on lasix x 5 days but was discontinued due to low BP. [facility]. Pt agreeable to plan and states they will come to [facility] now. Report given to MARIBEL Barillas. MARIBEL Barillas aware as pt presented to [facility] for an appointment. Multiple (2) protocols were used on this call. Disposition for Call: See in Office or Video Visit Today Protocol Used: Rash or Redness - Widespread (Adult) Protocol-Based Disposition: See in Office or Video Visit Today Video visit offer not recorded Positive Triage Question: * Severe itching * All higher-acuity triage questions were negative Care Advice Discussed: * Reasons To Call Back - Rash becomes purple or blood-colored or blister-like - Fever occurs or severe itching - You become worse Protocol Used: Leg Swelling and Edema (Adult) Protocol-Based Disposition: See in Office or Video Visit Today Video visit offer not recorded Positive Triage Questions: * Moderate swelling of both ankles (e.g., swelling extends up to the knees) AND new-onset or getting worse * Patient wants to be seen * All higher-acuity triage questions were negative * Telephone Encounter - Emory Martinez - 04/29/2025 2:10 PM EDT Symptoms: Rash or Redness - Widespread, Foot or Ankle Swelling Outcome: Transfer to a nurse or provider NOW! Reason: Trouble breathing The caller accepted this outcome. Contact pt at [phone] documented in this encounter Plan of Treatment Upcoming Encounters Date Type Department Care Team (Late st Contact Info) Description 05/08/2025 10:00 AM EDT Clinical Support [facility] [address] [place] [phone] Jasmina Coronado RN 05/28/2025 9:00 AM EST Office Visit [facility] [address] [place] [phone] Ciara Garcia MD [address] [place] [phone] 06/26/2025 2:00 PM EST Office Visit [facility] [address] [place] [address] Gabriela Castañeda, OD [address] [place] [address] documented as of this encounter Visit Diagnoses Not on filedocumented in this encounter Additional Health Concerns Assessment Noted Time PHQ-9 Depression Total Score: 0 03/06/20 25 11:41 AM EDT documented as of this encounter Care Teams Accredited Legal Secretary Relationship Specialty Start Date End Date Ciara Garcia MD [address] [place], [place] [phone] PCP - General Family Medicine 06/04/19 documented as of this encounter
--- OUTSIDE RECORDS SUMMARY | 2025-04-29 18:17 | XMS_ITS | Encounter Summary ---
Author Organization [employer] Address [address] [place] [address] 7 [place] [address] Care Team Providers Care Mail List Processor Name Role Phone Ciara Garcia MD Primary Care Provide r Reason for Visit * Reason Comments Med Refill Encounter Details Date Type Department Care Team (Late st Contact Info) Description 08/12/2022 Refill [facility] [address] [place] [phone] Jeannette Marquez MD [address] [place] [phone] Chronic low back pain with bilateral sciatica, [...] Clinical Support [facility] [address] [place] [phone] Jasmina Coronado RN 05/28/2025 9:00 AM EST Office Visit [facility] [address] [place] [phone] Ciara Garcia MD [address] [place] [address] 06/26/2025 2:00 PM EST Office Visit [facility]ET[facility] [address] [place], [place] [phone] Haydeemarcy Gabriela, OD [address] [place] [address] documented as of this encounter Visit Diagnoses Diagnosis Chronic low back pain with bilateral sciatica, unspecified back pain laterality- Primary documented in this encounter Care Teams Mail List Processor Relationship Specialty Start Date End Date Ciara Garcia MD [address] [place] [phone] PCP - General Family Medicine 06/04/19 documented as of this encounter
--- OUTSIDE RECORDS SUMMARY | 2025-04-29 18:17 | XMS_ITS | Patient Health Record ---
Author Organization [facility] Address [address] [place] [address] Care Team Providers Care Information Systems Specialist Name Role Phone Tanner Carrera [phone] Reason For Referral No Information Plan Of Treatment No Information
--- OUTSIDE RECORDS SUMMARY | 2025-04-29 18:17 | XMS_ITS | Encounter Summary ---
Author Organization [employer] Address [address] [facility] 7t [place] [address] Care Team Providers Care Service Vehicle Operator Name Role Phone Ciara Garcia MD Primary Care Provide r Reason for Visit * Reason Comments Med Refill Encounter Details Date Type Department Care Team ([facility] st Contact Info) Description 01/28/2025 Refill [facility] [address] [place] [address] Ciara Garcia MD [address] [place] [address] Tobacco dependence syndrome Social History Tobacco Use [...] 05/08/2025 10:00 AM EDT Clinical Support [facility] [address] [place] [phone] Jasmina Coronado RN 05/28/2025 9:00 AM EST Office Visit [facility] [address] [place] [phone] Ciara Garcia MD [address] [place] [phone] 06/26/2025 2:00 PM EST Office Visit [facility] [address] [place] [address] Gabriela Castañeda, OD [address] [place] [address] documented as of this encounter Visit Diagnoses Diagnosis Tobacco dependence syndrome Tobacco use disorder documented in this encounter Additional Health Concerns Assessment Noted Time PHQ-9 Depression Total Score: 0 09/27/19 25 9:51 AM EDT documented as of this encounter Care Teams Service Vehicle Operator Relationship Specialty Start Date End Date Ciara Garcia MD [address] [place] [phone] PCP - General Family Medicine 06/04/19 documented as of this encounter
[2025-04-30 03:12] LABS: Syphilis Screen Nonreactive (Nonreactive)
[2025-04-30 04:15] LABS: ~HepC Num1 0.05 S/CO (0.00-0.79); ~Hepatitis C Antibody Nonreactive (Nonreactive)
== END 2025-04-29 15:33 | disposition home or self-care (01) ==
LOC: HO.HHCL 15:32
PROVIDERS: PCP Internal Medicine; Visit Provider Internal Medicine
DX: Z11.3 Encounter for screening for infections with a predominantly sexual mode of transmission (principal); Z11.59 Encounter for screening for other viral diseases; R35.0 Frequency of micturition; I51.89 Other ill-defined heart diseases; I10 Essential (primary) hypertension; R22.43 Localized swelling, mass and lump, lower limb, bilateral; R21 Rash and other nonspecific skin eruption; R79.89 Other specified abnormal findings of blood chemistry
CPT/HCPCS: 36415; 80053; 81001; 84443; 85025; 86780; 86803

== ENCOUNTER 2025-05-08 10:56 | Outpatient (REF) | payer MEDICARE, MEDICAID, SELFPAY ==
--- NOTE | ~2025-05-08 | US_ITS ---
EXAMINATION: US TRIPLEX LOWER EXTREMITY, BILATERAL CLINICAL INFORMATION: Edema, lower extremities. COMPARISON: None available. TECHNIQUE: Color-flow triplex imaging with spectral analysis and compression Doppler were performed on the bilateral lower extremities. FINDINGS: Respiratory variation, normal compression and augmented flow are demonstrated in the interrogated common femoral vein, superficial femoral vein, profunda femoral vein, popliteal vein and midcalf peroneal and posterior tibial venous segments both lower extremities. There is no Benavidez's cyst. US/US venous duplex LE BI IMPRESSION: No acute deep venous thrombosis interrogated veins, both lower extremities. Negative for DVT. Electronically signed by: Jose Alejandro Vanessa MD 05/08/2025 11:37 AM EDT
--- OUTSIDE RECORDS SUMMARY | 2025-05-08 13:35 | XMS_ITS | Clinical Summary ---
Author Organization [facility] Address [address] [place] [address] Phone Care Team Providers Care Cat Sitter Name Role Phone Ciara Garcia MD Primary [...] night Active cholecalciferol (VITAMIN D-3) 1.25 MG (58132 UT) tablet Take 50,000 Units by mouth [...] Medicaid [place] Care Teams Cat Sitter Relationship Specialty Start Date End Date Ciara Garcia MD [address] [place] [phone] PCP - General Internal Medicine 02/03/21
== END 2025-05-08 10:57 | disposition home or self-care (01) ==
LOC: HO.US 10:56
PROVIDERS: PCP Internal Medicine; Visit Provider Internal Medicine
DX: R60.0 Localized edema (principal)
CPT/HCPCS: 93970

== ENCOUNTER → 2025-05-08 11:04 | Outpatient (BNV) | payer MEDICARE, MEDICAID, SELFPAY | PROVIDERS: PCP Internal Medicine; Visit Provider Radiology Diagnostic Radiology | DX: R60.0 Localized edema (principal) | CPT/HCPCS: 93970 ==

== ENCOUNTER 2025-05-20 12:49 | Outpatient (AMB) | payer MEDICARE, MEDICAID, SELFPAY ==
--- NOTE | 2025-05-20 12:55 | A.OFFVIS_ITS ---
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/Bilateral lower leg swelling Slice Cutting Machine Operator Required: No Accompanied by: Self / Same As Patient Allergies marijuana (cannabis) (marijuana) Allergy (Severe, Verified 02/04/25 06:07) Seizure varenicline (From Chantix) Adverse Reaction (Intermediate, Verified 02/04/25 06:07) Nausea Medication List - Last Reconciled 05/20/25 by Portillo Aguero MD albuterol sulfate 90 mcg/actuation (Ventolin HFA) 2 puffs inhalation Q4H PRN aspirin 81 mg PO DAILY blood sugar diagnostic (FreeStyle Lite Strips) As directed blood-glucose meter (FreeStyle Lite Meter kit) As directed budesonide-formoterol 160-4.5 mcg/actuation (Symbicort) 1 inh inhalation DAILY bupropion HCl SR 150 mg PO BID cefuroxime axetil 500 mg PO BID cholecalciferol (vitamin D3) 25 mcg PO DAILY cyanocobalamin (vitamin B-12) 1,000 mcg PO DAILY finasteride 5 mg PO DAILY furosemide 20 mg PO DAILY lancets (FreeStyle Lancets) As directed lisinopril 10 mg PO DAILY metformin 500 mg PO BIDWM modafinil 200 mg PO BID oxycodone ER (OxyContin) 1 tab PO Q8H phenazopyridine (Pyridium) 100 mg PO Q8H PRN 6 doses simvastatin 40 mg PO BEDTIME tamsulosin 0.4 mg PO BEDTIME tramadol 50 mg PO Q8H PRN HPI Comments Details: Efraín has been referred for cardiac evaluation due to leg swelling. It seems that he has been having this for the last several months. He denies any previous cardiac history. Denies any coronary disease myocardial infarction or cardiomyopathy. Per notes, he has got COPD, diabetes, hypertension, obstructive sleep apnea, smoking history. He states that with activity, he gets short of breath because of COPD. However, he denies any clear-cut exertional anginal- type symptoms. He has been having swelling in both lower extremities more so on the right side. [facility] Medical History (Updated 05/20/25 @ 13:10 by Portillo Aguero MD) Bilateral arm pain Leg pain Back pain Chronic, continuous use of opioids Complex sleep apnea syndrome COPD (chronic obstructive pulmonary disease) Seizure disorder HTN (hypertension) Nicotine dependence, cigarettes, uncomplicated Cervical radiculopathy Numbness in both hands SUNNY on CPAP Umbilical hernia Pancreas anomaly, congenital Surgical History History of ureteroscopy (01/15/25) History of colonoscopy History of tonsillectomy History of cholecystectomy History of liver biopsy History of pancreatic surgery History of elbow surgery S/P insertion of spinal cord stimulator Family History Father Cardiac abnormality Mother No problems noted. Social History (Updated 01/31/25 @ 13:21 by Sheyla Fields RN) Household Members: Spouse Housing: House Are you a primary healthcare or medical to a significant other at home: No Do you presently have visiting nurse or other home services: No 75 years or older and lives alone: No Alcohol intake: former Patient Tobacco Use Status: Current everyday Tobacco user Tobacco use type: Cigarette Cigarette Packs Per Day: 0.5 Cigarettes Per Day: 10 Years Smoked: 50 years e-Cigarette/Vaping Use: Never Used Second Hand Smoke Exposure: Yes service: No Current occupational status: disabled Review of Systems Const Denies chills, Denies fatigue, Denies fever(s), Denies frequent falls, Denies weakness, Denies weight gain and Denies weight loss ENT Denies dizziness Card Denies chest pain, Denies leg edema, Denies lightheadedness, Denies palpitations, Reports dyspnea, Reports dyspnea on exertion and Reports orthopnea Resp Denies cough, Reports dyspnea and Reports dyspnea on exertion GI Denies bloating and Denies change in bowel habits Musc Denies muscle weakness, Denies numbness and Denies tingling Neuro Denies dizziness, Denies frequent falls, Denies numbness, Denies tingling and Denies weakness Endo Denies fatigue and Denies palpitations Physical Exam Vital Signs: Last Vital Signs Pulse 82 05/20/25 12:58 BP 130/60 05/20/25 12:58 BMI result Body Mass Index 35.9 Const General: comfortable and no acute distress Orientation/consciousness: patient oriented x3 HEENT Other: Unremarkable Head: Yes normal to inspection Neck Neck: Yes normal visual inspection Chest Chest palpation & inspection: normal inspection of the chest Resp Auscultation: clear to auscultation bilaterally Cardio Palpation: normal PMI Heart sounds: S1 normal heart sound present, S2 normal heart sound present, no gallops, no murmurs and no rubs GI Palpation (GI): Soft to palpation Back/Spine/Pelvis Other: unremarkable Skin General skin exam: no rashes or lesions noted Neuro General: patient oriented x3 Extrem Other: 1+ R>L. General: Yes normal to inspection Psych Mental Status: mental status grossly normal Office Procedures EKG Details: EKG with underlying sinus rhythm at 82/Min; lateral T inversions; [place]. [address]-[id number], Complete Assessment & Plan Assessment & Plan (1) SOB (shortness of breath): Code(s): R06.02 - Shortness of breath Category: Medical Plan In a prior echocardiogram from 2021, there was a question of apical hypertrophic cardiomyopathy. In the study prior to that, described to hyperdynamic LVEF. Recommend repeat echocardiogram with contrast to reassess. Also check cardiac BNP. Leg swelling could be related to right heart failure related to COPD/SUNNY/cor pulmonale as well as venous insufficiency. He also has some lateral T inversions, unclear etiology. Could be related to hypertension. Coronary disease possible but he has got no angina. May want a stress test in the future. Follow-up after the echocardiogram. Orders: Orders CA echo transthorac w con Today R06.02 - Shortness of breath NT Pro B Type Natriuretic Pept Today I50.9 - Heart failure, unspecified, R06.02 - Shortness of breath Coding Level of Care Code New Pt Level 4 (84658) Complex EM visit Add On G2211 Diagnoses SOB (shortness of breath) R06.02 CPT Codes EKG - CPT: 25958-[id number], Complete ([id number])
[2025-05-20 12:58] VITALS: BP 130/60; PULSE 82; BMI 35.9
--- OUTSIDE RECORDS SUMMARY | 2025-05-20 15:27 | XMS_ITS | Encounter Summary ---
Author Organization [employer] Address [address] [facility] [address] [place] [address] Care Team Providers Care Civil Engineering Project Designer Name Role Phone Ciara Garcia MD Primary Care Provide r Reason for Visit * Reason Comments Med Refill Encounter Details Date Type Department Care Team ([facility] st Contact Info) Description 05/19/[address] [facility] MEDICINE [address] [place] [address] Ciara Garcia MD [address] [place] [address] Tobacco dependence syndrome; Cervicalgia Social History Tobacco Use Types Packs/Day [...] Care Team (Late st Contact Info) Description 05/28/2025 9:00 AM EST Office Visit [facility] MEDICINE [address] [place] [phone] Ciara Garcia MD [address] [place] [phone] 06/26/2025 2:00 PM EST Office Visit [facility] OPTOMETRY [address] [place] [address] Gabriela Castañeda, OD [address] [place] [address] 08/11/2025 10:30 AM EST Clinical Support [facility] MEDICINE [address] [place] [phone] Jasmina Coronado RN documented as of this encounter Visit Diagnoses Diagnosis Tobacco dependence syndrome Tobacco use disorder Cervicalgia documented in this encounter Additional Health Concerns Assessment Noted Time PHQ-9 Depression Total Score: 0 03/06/20 25 11:41 AM EDT documented as of this encounter Care Teams Civil Engineering Project Designer Relationship Specialty Start Date End Date Ciara Garcia MD [address] [place] [phone] PCP - General Family Medicine 06/04/19 documented as of this encounter
--- OUTSIDE RECORDS SUMMARY | 2025-05-20 15:27 | XMS_ITS | Encounter Summary ---
Author Organization [employer] Address [address] [facility] [address] [place] [address] Care Team Providers Care Resource Forester Name Role Phone Ciara Garcia MD Primary Care Provide r Reason for Visit * Reason Comments Med Refill Encounter Details Date Type Department Care Team ([facility] st Contact Info) Description 11/26/2024 Refill [facility] MEDICINE [address] [place] [address] Jeannette Marquez MD [address] [place] [address] Tobacco dependence syndrome Social History Tobacco Use [...] Description 05/28/2025 9:00 AM EST Office Visit [facility] MEDICINE [address] [place] [phone] Ciara Garcia MD [address] [place] [address] 06/26/2025 2:00 PM EST Office Visit [facility] OPTOMETRY [address] [place] [phone] Gabriela Castañeda, OD [address] [place] [address] 08/11/2025 10:30 AM EST Clinical Support [facility] MEDICINE [address] [place] [phone] Jasmina Coronado RN documented as of this encounter Visit Diagnoses Diagnosis Tobacco dependence syndrome Tobacco use disorder documented in this encounter Additional Health Concerns Assessment Noted Time PHQ-9 Depression Total Score: 0 09/27/19 25 9:51 AM EDT documented as of this encounter Care Teams Resource Forester Relationship Specialty Start Date End Date Ciara Garcia MD [address] [place] [phone] PCP - General Family Medicine 06/04/19 documented as of this encounter
--- OUTSIDE RECORDS SUMMARY | 2025-05-20 15:27 | XMS_ITS | Encounter Summary ---
Author Organization [employer] Address [address] [place] [address] [address] [place] [address] Care Team Providers Care Asphalt Paving Machine Operator Name Role Phone Ciara Garcia MD Primary Care Provide r Reason for Visit * Reason Onset Date Comments Nurse Triage 01/20/2025 Encounter Details Date Type Department Care Team ([facility] st Contact Info) Description 01/20/2025 Telephone [facility] MEDICINE [address] [place] [address] Ciara Garcia MD [address] [place] [address] Nurse Triage Social History Tobacco Use Types [...] EDT Triage call Pt was seen in [facility] ED 01/17/25 and dx of RUDY and kidney stone was given. Pt reports pain with urination and left lower quadrant abdominal pain and flank pain. Pt is taking cefuroxime [id number] po bid x10 days as prescribed. Pt [...] become worse * Telephone Encounter - Alfred Bala - 01/20/2025 11:44 AM EDT Patient calling to report ED visit on : Date: 01/17/2025 Hospital: [facility] Seen for: Kidney Stones Symptomatic Yes *if yes message should go to Triage Patient advised will forward to team nurse for follow up Contact at [phone] documented in this encounter Plan of Treatment Upcoming Encounters Date Type Department Care Team (Late st Contact Info) Description 05/28/2025 9:00 AM EST Office Visit [facility] MEDICINE [address] [place] [phone] Ciara Garcia MD [address] [place] [address] 06/26/2025 2:00 PM EST Office Visit [facility] OPTOMETRY [address] [place] [address] Tarka, Gabriela, OD [address] [place] [address] 08/11/2025 10:30 AM EST Clinical Support [facility] MEDICINE [address] [place] [address] Jasmina Coronado, MARIBEL documented as of this encounter Visit Diagnoses Not on filedocumented in this encounter Additional Health Concerns Assessment Noted Time PHQ-9 Depression Total Score: 0 09/27/19 25 9:51 AM EDT documented as of this encounter Care Teams Asphalt Paving Machine Operator Relationship Specialty Start Date End Date Ciara Garcia MD [address] [place] [phone] PCP - General Family Medicine 06/04/19 documented as of this encounter
--- OUTSIDE RECORDS SUMMARY | 2025-05-20 15:27 | XMS_ITS | Clinical Summary ---
Author Organization [employer] Address [address] [place] [address] 7[address] [place] [address] Care Team Providers Care Fire Equipment Operator Name Role Phone Ciara Garcia [...] TABLET BY MOUTH EVERY DAY 90 tablet 025 Active Vitamin D-[address] 25 [...] IN THE MORNING 90 capsule 025 Active naloxone (Narcan) 4 mg/0.1 mL [...] per week. 2 mL 2 025 Active atorvastatin (Lipitor) 80 MG tabletIndications :Hyperlipidemia, unspecified hyperlipidemia type Take 1 tablet (80 mg) by mouth Once per day. 30 tablet 11 025 2025 Active furosemide (Lasix) 20 MG tabletIndications :Localized swelling of both lower legs,Diastolic dysfunction Take 1 tablet (20 mg) by mouth Once per day. 30 tablet 025 Active diphenhydrAMINE (BENADryl) 25 MG tabletIndications :Rash Take 1 tablet (25 mg) by mouth every 8 (eight) hours if needed for itching. 30 tablet Active oxyCODONE ER (OxyCONTIN) 80 MG 12 hr tabletIndications :Other chronic pain Take 1 tablet (80 mg) by mouth every 8 (eight) hours for 28 days. Do not start before May 02, 2025. 84 tablet 025 2024 Active buPROPion SR (Wellbutrin SR) 150 MG 12 hr tabletIndications :Tobacco dependence syndrome TAKE 1 TABLET BY MOUTH TWICE A DAY. DO NOT CRUSH, SPLIT, OR CHEW. 180 tablet 025 Active baclofen (Lioresal) 10 MG tabletIndications :Cervicalgia TAKE 1 TABLET BY MOUTH EVERY 8 HOURS IF NEEDED FOR MUSCLE SPASMS 60 tablet 1 025 Active amLODIPine (Norvasc) 10 MG tablet Take 1 tablet by mouth at bed time. 021 2024 Discontinued(T herapy completed) amLODIPine (Norvasc) 5 MG tablet Take 5 mg by mouth in the morning. 023 2024 Discontinued(T herapy completed) buPROPion SR (Wellbutrin SR) 150 MG 12 hr tabletIndications :Tobacco dependence syndrome TAKE 1 TABLET BY MOUTH TWICE A DAY. DO NOT CRUSH, SPLIT, OR CHEW. 180 tablet 025 2024 Discontinued baclofen (Lioresal) 10 MG tabletIndications :Cervicalgia TAKE 1 TABLET (10 MG) BY MOUTH EVERY 8 (EIGHT) HOURS IF NEEDED FOR MUSCLE SPASMS. 60 tablet 1 025 2024 Discontinued furosemide (Lasix) 20 MG tabletIndications :Localized swelling [...] April 04, 2025. 84 tablet 025 2024 Discontinued(R eorder (will not trigger notification to Pharmacy)) ibuprofen 800 MG tabletIndications :Chronic low back pain with bilateral sciatica, unspecified back pain laterality TAKE 1 TABLET BY MOUTH EVERY 8 HOURS WITH FOOD 90 tablet 025 2024 Discontinued(T herapy completed) predniSONE (Deltasone) 20 MG tabletIndications :Asthma Take 2 tablets (40 mg) by mouth Once per day for 3 days, THEN 1 tablet (20 mg) Once per day for 2 days, THEN 0.5 tablets (10 mg) Once per day for 2 days. 9 tablet 025 2024 Active Problems Problem Noted Date Diagnosed Date [...] treatment and normal blood work, referral to middle school special education teacher discussed. 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[facility]) 08/25/2022 12/30/2024 Hypercholesterolemia 08/25/2022 023 Impaired fasting glucose 12/09/2014 Encounters Date Type Department Care Team Description 05/19/2025 Refill [facility] [address] [place], [place] [phone] Ciara Garcia MD Tobacco dependence syndrome; Cervicalgia 05/08/2025 10:00 AM EDT Clinical Support [facility] [address] [place] [phone] Jasmina Coronado RN Long-term current use of opiate analgesic (Primary Dx) 05/08/2025 Telephone [facility] [address] [place] [phone] Jasmina Coronado, RN LE Edema, Lasix, Blood Pressure, Ultrasound 05/08/2025 Travel 04/30/2025 Refill [facility] [address] [place] [phone] Ciara Garcia MD Other chronic pain 04/29/2025 3:00 PM EDT Office Visit [facility] [address] [place] [phone] Thiago Calvert MD Rash (Primary Dx); Localized swelling of both lower legs; Chronic diastolic (congestive) heart failure (HCC); Diastolic dysfunction; Primary hypertension; Elevated LFTs; Urinary frequency 04/29/2025 Travel 04/29/[address] [address] Ciara Garcia MD Nurse Triage 04/09/[address] [address] Ciara Garcia MD Chronic low back pain with bilateral sciatica, unspecified back pain laterality 04/03/2025 1:40 PM EDT Office Visit [facility] [address] [place] [phone] Missy Gonzalez MD Hyperlipidemia, unspecified hyperlipidemia type (Primary Dx); Localized swelling of both lower legs 04/02/[address] [address] Ciara Garcia MD Other chronic pain 03/25/2025 10:20 AM EDT [facility] [address] [address] Missy Gonzalez MD Localized swelling of both lower legs (Primary Dx); Type 2 diabetes mellitus without complication, without long-term current use of insulin ([facility]) 03/25/2025 Results Follow-Up [address] [address] Ciara Garcia MD Lipid Panel with Reflex to Direct LDL 03/25/2025 Orders Only [address] [address] Ciara Garcia MD Hyperlipidemia, unspecified hyperlipidemia type (Primary Dx) 03/25/2025 Results Follow-Up [address] [address] Audrey Roblero ANP Urinalysis Complete, Albumin, Random Urine W/Creatinine 03/25/2025 Orders Only [address] [address] Ciara Garcia MD 03/25/2025 Travel 03/25/[address] [address] Ciara Garcia MD Nurse Triage 03/07/2025 Refill [facility] [address] [place] [address] Ciara Garcia MD Cervicalgia 03/06/2025 Orders Only [facility] [address] [place] [address] Ciara Garcia MD Type 2 diabetes mellitus without complication, without long-term current use of insulin ([facility]) (Primary Dx) 03/06/2025 Travel 03/05/2025 Refill [facility] [address] [place], [place] [phone] Ciara Garcia MD Other chronic pain 03/05/2025 Telephone [facility] [address] [place] [address] Ciara Garcia MD chart prep 03/04/2025 Refill [facility] [address] [place], [place] [phone] Ciara Garcia MD Tobacco dependence syndrome from Last 3 Months Immunizations Immunization Administration [...] Description 05/28/2025 9:00 AM EST Office Visit [facility] [address] [place] [phone] Ciara Garcia MD [address] [place] [address] 06/26/2025 2:00 PM EST Office Visit [facility] [address] [place] [address] Gabriela Castañeda, OD [address] [place] [address] 08/11/2025 10:30 AM EST Clinical Support [facility] [address] [place] [phone] Jasmina Coronado, RN Health Maintenance Due Date Last Done [...] Completed 07/20/2023 Zoster Vaccines Completed 09/21/2023, 07/20/2023 Pneumococcal Vaccine: 50+ Years Completed 06/21/2024, 11/04/2010 Hepatitis C Screening Completed 04/29/2025 , 12/19/2023, 10/07/2020, Additional history exists HIB Vaccines Aged Out No longer eligi [...] Procedure Name Priority Date/Time Associated Diagnosis Comments VASC US LOWER EXTREMITY VENOUS DUPLEX BILATERAL STAT 05/08/2025 11:21 AM EDT Localized swelling of both lower legs POCT HERBER-14 URINE DRUG SCREEN Routine 05/08/2025 10:21 AM EDT Long-term current use of opiate analgesic CBC WITH AUTO DIFFERENTIAL Routine 04/29/2025 3:36 PM EDT Localized swelling of both lower legs Rash Primary hypertension Diastolic dysfunction Elevated LFTs Urinary frequency URINALYSIS, COMPLETE, WITH REFLEX TO CULTURE Routine 04/29/2025 3:36 PM EDT Localized swelling of both lower legs Primary hypertension Diastolic dysfunction Elevated LFTs Urinary frequency SYPHILIS SCREEN Routine 04/29/2025 3:35 PM EDT Localized swelling [...] hypertension Diastolic dysfunction Elevated LFTs Urinary frequency HEPATITIS C AB W/REFL TO HCV RNA, QN, PCR Routine 04/29/2025 3:30 PM EDT Localized swelling of both lower [...] COMPLETE Routine 03/25/2025 10:49 AM EDT Bilirubinuria LDCT LUNG SCREENING Routine 02/05/2025 9 :07 AM EDT POCT GLYCATED HEMOGLOBIN, TOTAL Routine 12/30/2024 9:26 AM EDT Type 2 diabetes mellitus without complication, without long-term current use of insulin (CMS/HCC) from Last 3 Months or Most Recently Relevant to Health Maintenance Results * Vascular US lower extremity venous duplex bilateral (05/08/2025 11:21 AM EDT) 05/08/2025 11:2 1 AM EDT [facility] IM[facility] - 05/08/2025 11:40 AM EDT [address] [address] Ultrasound Report Signed Patient: Efraín Bravo Jr MR#: [id number] : 1960 Acct:[id number] Age/Sex: 64 / M ADM Date: 05/08/25 Loc: HO.US Attending Dr: Thiago Sterling MD Ordering Physician: Thiago Sterling MD Date of Service: 05/08/25 Procedure(s): US venous duplex LE Accession Number(s): [id number] cc: Ciara Garcia MD; Thiago Sterling MD Reason for Exam: LOCALIZEDLSWELLING,MASS AND LUMP, BILATERAL EXAMINATION: US TRIPLEX LOWER EXTREMITY, BILATERAL CLINICAL INFORMATION: Edema, lower extremities. COMPARISON: None available. TECHNIQUE: Color-flow triplex imaging with spectral analysis and compression Doppler were performed on the bilateral lower extremities. FINDINGS: Respiratory variation, normal compression and augmented flow are demonstrated in the interrogated common femoral vein, superficial femoral vein, profunda femoral vein, popliteal vein and midcalf peroneal and posterior tibial venous segments both lower extremities. There is no Benavidez's cyst. US/US venous duplex LE BI IMPRESSION: No acute deep venous thrombosis interrogated veins, both lower extremities. Negative for DVT. Electronically signed by: Jose Alejandro Vanessa MD 05/08/2025 11:37 AM EDT RP Dictated By: Jose Alejandro Haney MD Signed By: <Electronically signed by Jose Alejandro Stockton MD in OV> 05/08/25 1137 DD/ 1121 TD/TT: 05/08/25 1129 Dowel Inspector: Procedure Note Donotuseinterpreter, Image - 05/08/[address] [address] Ultrasound Report Signed Patient: Efraín Bravo [facility]#: [id number] : 9Acct:[id number] Age/Sex: 64 / MADM Date: 05/08/25 Loc: HO.US Attending Dr: Thiago Sterling MD Ordering Physician: Thiago Sterling MD Date of Service: 05/08/25 Procedure(s): US venous duplex LE BI Accession Number(s): [id number] cc: Ciara Garcia MD; Thiago Sterling MD Reason for Exam: LOCALIZEDLSWELLING,MASS AND LUMP, BILATERAL EXAMINATION: US TRIPLEX LOWER EXTREMITY, BILATERAL CLINICAL INFORMATION: Edema, lower extremities. COMPARISON: None available. TECHNIQUE: Color-flow triplex imaging with spectral analysis and compression Doppler were performed on the bilateral lower extremities. FINDINGS: Respiratory variation, normal compression and augmented flow are demonstrated in the interrogated common femoral vein, superficial femoral vein, profunda femoral vein, popliteal vein and midcalf peroneal and posterior tibial venous segments both lower extremities. There is no Benavidez's cyst. US/US venous duplex LE BI IMPRESSION: No acute deep venous thrombosis interrogated veins, both lower extremities. Negative for DVT. Electronically signed by: Jose Alejandro Vanessa MD 05/08/2025 11:37 AM EDT Dictated By: Jose Alejandro Haney MD Signed By: <Electronically signed by Jose Alejandro Stockton MDin OV> 05/08/25 1137 DD/ 1121 TD/TT: 05/08/25 1129 Dowel Inspector: Thiago Mcdaniel MD CV VASCULAR PROCEDURE S Edited Result - Final [facility] [address] [place] [phone] * (ABNORMAL) POCT HERBER-14 Urine Drug Screen (05/08/2025 10:21 AM EDT) THC Negative Negative Cocaine Screen, Urine Negative Negative Opiate Screen, Urine Negative Negative Methamphetamine Screen Urine Negative Negative Amphetamine Screen, Urine Negative Negative Benzodiazepines Screen, Urine Negative Negative Barbiturate Screen, Urine Negative Negative Methadone Screen, Urine Negative Negative Buprenophine Screen, Urine Negative Negative TCA, Urine Negative Negative MDMA Urine Negative Negative ng/mL Oxycodone Screen, Urine Positive(A) Negative 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 04/22/26 Internal Pass Control x us Ciara Celaya MD POINT OF CARE TEST EN TER/EDIT ORDERABLES Final Result * (ABNORMAL) Urinalysis, Complete, with Reflex to Culture (04/29/2025 3:36 PM EDT) Color Urine Yellow [facility] Appearance Urine Clear [facility] PH 5.5 5.0 - 9.0 [facility] Glucose Urine UA Negative Negative mg/dL [facility] Urine Blood Negative Negative [facility] Specific [place] - Urine 1.025 1.005 - 1.025 [facility] Urine Protein 30 (1+)(A) Neg-Trace mg/dL [facility] Urine Ketones Negative Negative mg/dL [facility] Nitrite Urine Negative Negative [facility] Leukocyte Esterase Urine Negative Negative [facility] RBC Urine 0-2 0 - 2 /HPF [facility] Urine WBC 0-5 0 - 5 /HPF [facility] Urine Squamous Epithelial Cell 0-2 0 - 2 /HPF [facility] Urine Bacteria None Seen None Seen [facility] Hyaline Casts, Urine 0-2 0 - 2 /LPF [facility] Urine 04/29/2025 3:36 PM EDT 04/29/2025 4:05 PM EDT Narrative [facility] - 04/29/2025 4:35 PM EDT Urine, Clean Catch us Thiago Mcdaniel MD LAB URINE ORDERABLES Final Result [facility] [address] [place] [address] [phone] * (ABNORMAL) CBC auto differential (04/29/2025 3:36 PM EDT) Only the most recent of2 resultswithin the time period is included. White Blood Count 12.4(H) 4.8 - 10.8 X10*3/uL [facility] Red Blood Count 4.78 4.60 - 5.80 X10*6/uL [facility] Hemoglobin 14.8 14.0 - 18.0 g/dl [facility] Hematocrit 46.8 42.0 - 52.0 % [facility] Mean Corpuscular Volume 97.9 80.0 - 98.0 fL [facility] Mean Corpuscular Hemoglobin 31.0 27.0 - 33.0 pg [facility] Mean Corpuscular HGB Conc 31.6 31.0 - 36.0 g/dl [facility] Red Cell Distribution Width 13.6 11.0 - 16.0 % [facility] Platelet Count 188 160 - 400 X10*3/uL [facility] Mean Platelet Volume 11.1 9.4 - 12.4 fL [facility] Neutrophils Percent Auto 66.5 45 - 73 % [facility] Imm Gran Pct Auto 0.9(H) 0.0 - 0.4 % [facility] Lymphocytes Percent Auto 19.4(L) 20 - 40 % [facility] Monocytes Percent Auto 6.8 2 - 11 % [facility] Eosinophils Percent Auto 5.4(H) 0 - 4 % [facility] Basophils Percent Auto 1.0 0 - 2 % [facility] NRBC Pct Auto 0.0 0.0 - 0.2 /100WBC [facility] Neutrophils Absolute Auto 8.2 2.0 - 8.3 x10*3/uL [facility] Imm Gran Abs Auto 0.11(H) 0.00 - 0.03 X10*3/uL [facility] Lymphocytes Absolute Auto 2.4 1.2 - 4.9 X10*3/uL [facility] Monocytes Absolute Auto 0.8 0.1 - 1.2 X10*3/uL [facility] Eosinophils Absolute Auto 0.7(H) 0.0 - 0.4 X10*3/uL [facility] Basophils Absolute Auto 0.1 0.0 - 0.2 X10*3/uL [facility] NRBC Abs Auto 0.000 0.0 - 0.012 X10*3/uL [facility] Blood Venous blood specimen / Unknown 04/29/2025 3:36 PM EDT 04/29/2025 4:04 PM EDT us Thiago Mcdaniel MD LAB BLOOD ORDERABLES Final Result Performing Organization Address City/[facility]/ZIP Co de Phone Number [facility] [address] [place] [phone] * Syphilis Screen (04/29/2025 3:35 PM EDT) Pathologist [facility] Syphilis Screen Nonreactive Nonreactive [facility] Blood Venous blood specimen / Unknown 04/29/2025 3:35 PM EDT 04/29/2025 4:04 PM EDT us Thiago Mcdaniel MD LAB BLOOD ORDERABLES Final Result Performing Organization Address [facility] Co de Phone Number [facility] [address] [place] [phone] * TSH with Reflex to Free T4 (04/29/2025 3:35 PM EDT) Only the most recent of2 resultswithin the time period is included. [facility] TSH reflex Free T4 1.11 0.32 - 4.0 uIU/mL [facility] Blood Venous blood specimen / Unknown 04/29/2025 3:35 PM EDT 04/29/2025 4:04 PM EDT Thiago Mcdaniel MD LAB BLOOD ORDERABLES Final Result Performing Organization Address [facility] Co de Phone Number [facility] [address] [place] [phone] * (ABNORMAL) Comprehensive Metabolic Panel (04/29/2025 3:35 PM EDT) [facility] Sodium 146(H) 135 - 145 mmol/L [facility] Potassium 4.7 3.3 - 5.1 mmol/L [facility] Chloride 108 96 - 108 mmol/L [facility] Carbon Dioxide 29 22 - 29 mmol/L [facility] Anion Gap 14 12 - 20 [facility] Urea Nitrogen (BUN) 16 9 - 16 mg/dL [facility] Creatinine, Serum 1.18 0.5 - 1.4 mg/dL [facility] Estimated Glomerular Filt Rate >60 [facility] Comment:Chronic Kidney Disea se: Estimated GFR < 60 mL/min/[id number] Kidney Disease: Estimated GFR < 15 mL/min/1.73m2 Glucose 115 60 - 115 mg/dL [facility] Calcium 9.3 8.4 - 10.2 mg/dL [facility] Bilirubin, Total 0.3 0.0 - 1.0 mg/dL [facility] Aspartate Amino Transferase 49(H) 5 - 37 U/L [facility] Alanine Aminotransferase 60(H) 0 - 40 U/L [facility] Total Protein 6.6 6.5 - 8.0 g/dL [facility] Albumin Level 4.4 3.5 - 5.0 g/dL [facility] Alkaline Phosphatase 125(H) 39 - 117 U/L [facility] Blood Venous blood specimen / Unknown 04/29/2025 3:35 PM EDT 04/29/2025 4:04 PM EDT us Thiago Mcdaniel MD LAB BLOOD ORDERABLES Final Result [facility] [address] [place] [address] [phone] * Hepatitis C Antibody with Reflex to HCV, RNA, Quantitative, Real-Time PCR (04/29/2025 3:30 PM EDT) Hepatitis C Antibody Nonreactive Nonreactive [facility] Comment:Antibodies to HCV no t detected; does not exclude early acuteHCV infection. Blood Venous blood specimen / Unknown 04/29/2025 3:30 PM EDT 04/29/2025 4:04 PM EDT us Thiago Mcdaniel MD LAB BLOOD ORDERABLES Final Result [facility] [address] [place] [address] [phone] * (ABNORMAL) Lipid Panel with Reflex to Direct LDL (03/25/2025 10:49 AM EDT) Triglycerides 374(H) <150 mg/dL [facility] Comment:Desirable Triglyceri de: less than 150 mg/dLBorderline High Triglyceride 150-199 mg/dLHigh Triglyceride: 200-499 mg/dLVery High Triglyceride: greater than or equal to 5OO mg/dL Cholesterol 241(H) <200 mg/dL [facility] Comment:Desirable Cholestero l: less than 200 mg/dLBorderline High Cholesterol: 200-239 mg/dLHigh Cholesterol: greater than 239 mg/dL LDL Cholesterol Calculated 106(H) <100 mg/dL [facility] Comment:Desirable LDL: less than 100 mg/dLNear Optimal/Above Optimal LDL: 110- 129 mg/dLBorderline High LDL: 130-159 mg/dLHigh LDL: 160-189 mg/dLVery High LDL: greater than or equal to 190 mg/dL HDL Cholesterol 61 >40 mg/dL [facility] Comment:Desirable HDL: great er than 40 mg/dL Note: This HDL assay may give artificially low results in patients with liver disease. 03/25/2025 10:4 9 AM EDT 03/25/2025 11:24 AM EDT us Ciara Celaya MD LAB BLOOD ORDERABLES Final Result [facility] [address] [place] [phone] [phone] * (ABNORMAL) Albumin, Random Urine W/Creatinine (03/25/2025 10:49 AM EDT) Only the most recent of2 resultswithin the time period is included. Creatinine, Urine 172.12 mg/dL [facility] Microalbumin Urine 78.0 mg/L [facility] Microalbum Creatinine Ratio Ur 45.3(H) <30 ug/mg cr [facility] Comment:Albumin/Creatinine R atio Reference Ranges: Normal: < 30 ug/mg creatinine Microalbuminuria: 30 - 300 ug/mg creatinineClinical Albuminuria: > 300 ug/mg creatinine Urine 03/25/2025 10:4 9 AM EDT 03/25/2025 12:14 PM EDT us Missy Gonzalez MD LAB URINE ORDERABLES Final Result Performing Organization Address City/State/[facility] Co de Phone Number [facility] [address] [place] [phone] * Urinalysis Complete (03/25/2025 10:49 AM EDT) Color Urine Yellow [facility] Appearance Urine Clear [facility] PH 5.5 5.0 - 9.0 [facility] Glucose Urine UA Negative Negative mg/dL [facility] Urine Blood Negative Negative [facility] Specific [place] - Urine 1.025 1.005 - 1.025 [facility] Urine Protein Trace Neg-Trace mg/dL [facility] Urine Ketones Negative Negative mg/dL [facility] Nitrite Urine Negative Negative [facility] Leukocyte Esterase Urine Negative Negative [facility] RBC Urine 0-2 0 - 2 /HPF [facility] Urine WBC 0-5 0 - 5 /HPF [facility] Urine Squamous Epithelial Cell 0-2 0 - 2 /HPF [facility] Urine Bacteria None Seen None Seen [facility] Hyaline Casts, Urine 3-5 0 - 2 /LPF [facility] Urine (Urine, Random) 03/25/2025 10:49 AM EDT 03/25/2025 11:17 AM EDT us Audrey RAMIREZ LAB URINE ORDERABLES Final Resul t [facility] [address] [place] [phone] * (ABNORMAL) Hepatic Function Panel (03/25/2025 10:49 AM EDT) [facility] Bilirubin, Total 0.4 0.0 - 1.0 mg/dL [facility] Bilirubin, Direct 0.1 0.0 - 0.5 mg/dL [facility] Aspartate Amino Transferase 44(H) 5 - 37 U/L [facility] Alanine Aminotransferase 45(H) 0 - 40 U/L [facility] Total Protein 6.7 6.5 - 8.0 g/dL [facility] Albumin Level 4.5 3.5 - 5.0 g/dL [facility] Alkaline Phosphatase 112 39 - 117 U/L [facility] Blood Venous blood specimen / Unknown 03/25/2025 10:49 AM EDT 03/25/2025 11:24 AM EDT Missy Gonzalez MD LAB BLOOD ORDERABLES Final Result Performing Organization Address City/[facility]/ZIP Co de Phone Number [facility] [address] [place] [phone] * (ABNORMAL) Basic Metabolic Panel (03/25/2025 10:49 AM EDT) Pathologist [facility] Sodium 144 135 - 145 mmol/L [facility] Potassium 4.4 3.3 - 5.1 mmol/L [facility] Chloride 107 96 - 108 mmol/L [facility] Carbon Dioxide 29 22 - 29 mmol/L [facility] Anion Gap 12 12 - 20 [facility] Urea Nitrogen (BUN) 20(H) 9 - 16 mg/dL [facility] Creatinine, Serum 1.17 0.5 - 1.4 mg/dL [facility] Estimated Glomerular Filt Rate >60 [facility] Comment:Chronic Kidney Disea se: Estimated GFR < 60 mL/min/[id number] Kidney Disease: Estimated GFR < 15 mL/min/1.73m2 Glucose 104 60 - 115 mg/dL [facility] Calcium 9.3 8.4 - 10.2 mg/dL [facility] Blood Venous blood specimen / Unknown 03/25/2025 10:49 AM EDT 03/25/2025 11:24 AM EDT us Missy Gonzalez MD LAB BLOOD ORDERABLES Final Result [facility] [address] [place] [phone] * CT Lung Screening Low dose (02/05/2025 9:07 AM EDT) Anatomical Region Laterality Modality Lung Computed Tomogra phy 02/05/2025 9:07 AM EDT Narrative 02/05/2025 9:08 AM EDT [address] [address] [address] Scan Report Signed Patient: Efraín Bravo Jr MR#: [id number] : 1960 Acct:[id number] Age/Sex: 64 / M ADM Date: 02/03/25 Loc: .CT Attending Dr: Neena Colunga PA-C Ordering Physician: Neena Colunga PA-C Date of Service: 02/03/25 Procedure(s): CT lung screening Accession Number(s): [id number] cc: Ciara Garcia MD; Neena Colunga PA-C Report Number: [id number]: Total DLP = 77.00 mGy-cm CLINICAL HISTORY: [...] in OV> 02/05/25907 DD/ 6 TD/TT: 02/05/25906 Dowel Inspector: Procedure Note Donotuseinterpreter, Image - 02/05/[address] [address] [address] Scan Report Signed Patient: Efraín Bravo [facility]#: [id number] : 9Acct:[id number] Age/Sex: 64 / MADM Date: 02/03/25 Loc: HO.CT Attending Dr: Neena Colunga PA-C Ordering Physician: Neena Colunga PA-C Date of Service: 02/03/25 Procedure(s): CT lung screening Accession Number(s): [id number] cc: Ciara Garcia MD; Neena Colunga PA-C Report Number: [id number]: Total DLP = 77.00 mGy-cm CLINICAL HISTORY: [...] in OV> 02/05/25907 DD/ 6 TD/TT: 02/05/25906 Dowel Inspector: [facility] External Provider IMG CT PROCEDURES Final Result * (ABNORMAL) POCT HGB A1C (12/30/2024 9:26 AM EDT) Hemoglobin A1C 6.9(A) 4.0 - 6.0 % QC Media Lot # [id number] Lot# Expiration Date ,054, Blood 12/30/2024 9:26 AM EDT Ciara Celaya MD POINT OF CARE TEST EN TER/EDIT ORDERABLES Final Result from Last 3 Months or Most Recently Relevant to [place] [id number] [facility] Care Teams Fire Equipment Operator Relationship Specialty Start Date End Date Ciara Garcia MD [address] [place] [phone] PCP - General Family Medicine 06/04/19
--- OUTSIDE RECORDS SUMMARY | 2025-05-20 15:27 | XMS_ITS | Encounter Summary ---
Author Organization [employer] Address [address] [place] [address] 7t [place] [address] Care Team Providers Care Vertical Contour Band Saw Operator Name Role Phone Ciara Garcia MD Primary Care Provide r Reason for Visit * Reason Onset Date Comments Med Refill 03/16/2023 Encounter Details Date Type Department Care Team ([facility] st Contact Info) Description 03/16/2023 Telephone [facility] [address] [place] [address] Ciara Garcia MD 230 [place] [address] Med Refill Social History Tobacco Use Types [...] 12 hr tablet Please sent to [facility]/pharmacy #[id number] - [place] - [address] [facility] documented in this encounter Plan of Treatment Upcoming Encounters Date Type Department Care Team (Late st Contact Info) Description 05/28/2025 9:00 AM EST Office Visit [facility] [address] [place] [address] Ciara Garcia MD 230 [place] [address] 06/26/2025 2:00 PM EST Office Visit [facility] [address] [place] [address] [phone] Gabriela Castañeda, OD [address] [place] [address] 08/11/2025 10:30 AM EST Clinical Support [address] [address] Jasmina Coronado, RN documented as of this encounter Visit Diagnoses Not on filedocumented in this encounter Additional Health Concerns Assessment Noted Time PHQ-9 Depression Total Score: 0 12/29/19 23 11:51 AM EDT documented as of this encounter Care Teams Vertical Contour Band Saw Operator Relationship Specialty Start Date End Date Ciara Garcia MD [address] [place] [address] [phone] PCP - General Family Medicine 06/04/19 documented as of this encounter
--- OUTSIDE RECORDS SUMMARY | 2025-05-20 15:27 | XMS_ITS | Encounter Summary ---
Author Organization [employer] Address [address] [facility] 7t [place] [address] Care Team Providers Care Packing Machine Tender Name Role Phone Ciara Garcia MD Primary Care Provide r Reason for Visit * Reason Comments Med Refill Encounter Details Date Type Department Care Team ([facility] st Contact Info) Description 06/29/2023 Refill [facility] MED[facility] [address] [place] [address] Jamel Duffy AGNP Chronic low back pain [...] Description 05/28/2025 9:00 AM EST Office Visit [facility] 230 [place] [address] Ciara Garcia MD 230 [place] [address] 06/26/2025 2:00 PM EST Office Visit [facility] OPTOMETRY [address] [place], [place] [phone] Gabriela Castañeda, OD 267 [place] [address] 08/11/2025 10:30 AM EST Clinical Support [facility] MEDICINE [address] [place] [phone] Jasmina Coronado, RN documented as of this encounter Visit Diagnoses Diagnosis Chronic low back pain with bilateral sciatica, unspecified back pain laterality documented in this encounter Additional Health Concerns Assessment Noted Time PHQ-9 Depression Total Score: 0 12/29/19 23 11:51 AM EDT documented as of this encounter Care Teams Packing Machine Tender Relationship Specialty Start Date End Date Ciara Garcia MD [address] [place] [phone] PCP - General Family Medicine 06/04/19 documented as of this encounter
--- OUTSIDE RECORDS SUMMARY | 2025-05-20 15:27 | XMS_ITS | Encounter Summary ---
Author Organization [employer] Address [address] [facility] 7t [place] [address] Care Team Providers Care Fabrication Manager Name Role Phone Ciara Garcia MD Primary Care Provide r Reason for Visit * Reason Comments Med Refill Encounter Details Date Type Department Care Team ([facility] st Contact Info) Description 06/01/2024 Refill [facility] [address] [place] [address] Ciara Garcia MD 230 [place] [address] Cervicalgia; Tobacco dependence syndrome; Uncomplicated asthma, unspecified [...] Description 05/28/2025 9:00 AM EST Office Visit [facility] MEDICINE [address] [place] [address] Ciara Garcia MD [address] [place] [address] 06/26/2025 2:00 PM EST Office Visit [facility] OPTOMETRY [address] [place] [address] Tarka, Gabriela, OD 267 [place] [address] 08/11/2025 10:30 AM EST Clinical Support [facility] MED[facility] [address] [place] [address] Jasmnia Coronado, MARIBEL documented as of this encounter Visit Diagnoses Diagnosis Cervicalgia Tobacco dependence syndrome Tobacco use disorder Uncomplicated asthma, unspecified asthma severity, unspecified whether persistent documented in this encounter Additional Health Concerns Assessment Noted Time PHQ-9 Depression Total Score: 0 12/29/19 23 11:51 AM EDT documented as of this encounter Care Teams Fabrication Manager Relationship Specialty Start Date End Date Ciara Garcia MD [address] [place] [phone] PCP - General Family Medicine 06/04/19 documented as of this encounter
--- OUTSIDE RECORDS SUMMARY | 2025-05-20 15:27 | XMS_ITS | Encounter Summary ---
Author Organization [employer] Address [address] [facility] 7t [place] [address] Care Team Providers Care Center Hole Reamer Name Role Phone Ciara Garcia MD Primary Care Provide r Reason for Visit * Reason Comments Med Refill Encounter Details Date Type Department Care Team ([facility] st Contact Info) Description 06/19/2024 Refill [facility] 230 [place] [address] Jason Hatfield MD 230 [place] [address] Tobacco dependence Social History Tobacco Use Types Packs/Day Years Used Date Smoking Tobacco: Every Day Cigarettes 0.5 45 Passive Smoke Exposure: Current Smokeless Tobacco: Never Depression Answer Date Recorded Patient Health Questionnaire-9 Score 0 12/28/2022 Housing Stability Answer Date Recorded What is your housing situation today? I have magnsu truong 05/04/[address] you [...] Description 05/28/2025 9:00 AM EST Office Visit [facility] [address] [place] [address] Ciara Garcia MD [address] [place] [address] 06/26/2025 2:00 PM EST Office Visit [facility] OPT[facility] [address] [place] [address] Gabriela Castañeda, OD 267 [place] [address] 08/11/2025 10:30 AM EST Clinical Support [facility] MED[facility] [address] [place] [address] Jasmina Coronado, RN documented as of this encounter Visit Diagnoses Diagnosis Tobacco dependence Tobacco use disorder documented in this encounter Additional Health Concerns Assessment Noted Time PHQ-9 Depression Total Score: 0 12/29/19 23 11:51 AM EDT documented as of this encounter Care Teams Center Hole Reamer Relationship Specialty Start Date End Date Ciara Garcia MD [address] [place] [address] [phone] PCP - General Family Medicine 06/04/19 documented as of this encounter
--- OUTSIDE RECORDS SUMMARY | 2025-05-20 15:27 | XMS_ITS | Encounter Summary ---
Author Organization [employer] Address [address] [place] [address] 7 [place] [address] Care Team Providers Care Raw Cheese Worker Name Role Phone Ciara Garcia MD Primary Care Provide r Reason for Visit * Reason Onset Date Comments Nurse Triage 01/13/2025 Encounter Details Date Type Department Care Team ([facility] st Contact Info) Description 01/13/2025 Telephone [facility] MEDICINE [address] [place] [address] Ciara Garcia MD 230 [place] [address] Nurse Triage Social History Tobacco Use Types [...] 9:00 AM EST Office Visit [facility] MEDICINE [address] [place] [address] Ciara Garcia MD 230 [place] [address] 06/26/2025 2:00 PM EST Office Visit [facility] OPTOMETRY [address] [place], [place] [phone] Gabriela Castañeda, OD 267 [place] [address] 08/11/2025 10:30 AM EST Clinical Support [facility] MEDICINE 230 [place] [address] Jasmina Coronado, RN documented as of this encounter Visit Diagnoses Not on filedocumented in this encounter Additional Health Concerns Assessment Noted Time PHQ-9 Depression Total Score: 0 09/27/19 25 9:51 AM EDT documented as of this encounter Care Teams Raw Cheese Worker Relationship Specialty Start Date End Date Ciara Garcia MD [address] [place] [address] [phone] PCP - General Family Medicine 06/04/19 documented as of this encounter
--- OUTSIDE RECORDS SUMMARY | 2025-05-20 15:27 | XMS_ITS | Patient Health Record ---
Author Organization [facility] Address [address] [place] [address] Care Team Providers Care Testing Analyst Name Role Phone Tanner Carrera [phone] Reason For Referral No Information Plan Of Treatment No Information
--- OUTSIDE RECORDS SUMMARY | 2025-05-20 15:27 | XMS_ITS | Encounter Summary ---
Author Organization [employer] Address [address] [facility] 7 [place] [address] Care Team Providers Care Cancer Registry Manager Name Role Phone Ciara Garcia MD Primary Care Provide r Reason for Visit * Reason Comments Med Refill Encounter Details Date Type Department Care Team ([facility] st Contact Info) Description 09/21/2023 Refill [facility] MED[facility]INE 230 [place] [address] Ciara Garcia MD 230 [place] [address] Other chronic pain Social History Tobacco Use [...] Description 05/28/2025 9:00 AM EST Office Visit [facility] MED[facility] [address] [place] [address] Ciara Garcia MD [address] [place] [address] 06/26/2025 2:00 PM EST Office Visit [facility] OPTOMETRY 267 [place] [address] Tarka, Gabriela, OD 267 [place] [address] 08/11/2025 10:30 AM EST Clinical Support [facility] [address] [place] [address] Jasmina Coronado, RN documented as of this encounter Visit Diagnoses Diagnosis Other chronic pain documented in this encounter Additional Health Concerns Assessment Noted Time PHQ-9 Depression Total Score: 0 12/29/19 23 11:51 AM EDT documented as of this encounter Care Teams Cancer Registry Manager Relationship Specialty Start Date End Date Ciara Garcia MD [address] [place] [address] [phone] PCP - General Family Medicine 06/04/19 documented as of this encounter
--- OUTSIDE RECORDS SUMMARY | 2025-05-20 15:27 | XMS_ITS | Encounter Summary ---
Author Organization [employer] Address [address] [place] [address] 7t [place] [address] Care Team Providers Care Precision Lens Polisher Name Role Phone Ciara Garcia MD Primary Care Provide r Encounter Details Date Type Department Care Team ([facility] Contact Info) Description 06/13/2022 Abstract [facility] [address] [place] [address] ProviderEdwin MD Social History Tobacco Use Types [...] Description 05/28/2025 9:00 AM EST Office Visit [facility] 230 [place] [address] Ciara Garcia MD 230 [place] [address] 06/26/2025 2:00 PM EST Office Visit [facility] OPTOMETRY 267 [place] [address] Gabriela Castañeda OD [address] [place] [address] 08/11/2025 10:30 AM EST Clinical Support [facility] 230 [place] [address] Jasmina Coronado, MARIBEL documented as of this encounter Visit Diagnoses Not on filedocumented in this encounter Care Teams Precision Lens Polisher Relationship Specialty Start Date End Date Ciara Garcia MD 230 [place] [address] PCP - General Family Medicine 06/04/19 documented as of this encounter
--- OUTSIDE RECORDS SUMMARY | 2025-05-20 15:27 | XMS_ITS | Encounter Summary ---
Author Organization [employer] Address [address] [place] [address] 7t [place] [address] Care Team Providers Care Enrollment Consultant Name Role Phone Ciara Garcia MD Primary Care Provide r Reason for Visit * Reason Comments Med Refill Encounter Details Date Type Department Care Team ([facility] st Contact Info) Description 12/06/[address] [facility] MEDICINE 230 [place] [address] Mary Trejo FNP Essential hypertension Social History [...] [facility] [address] [place] [address] Ciara Garcia MD 230 [place] [address] 06/26/2025 2:00 PM EST Office Visit [facility] OPTOMETRY [address] [place], [place] [phone] Haydeemarcy Gabriela, OD 267 [place] [address] 08/11/2025 10:30 AM EST Clinical Support [facility] MEDICINE [address] [place] [address] Jasmina Coronado, MARIBEL documented as of this encounter Visit Diagnoses Diagnosis Essential hypertension Unspecified essential hypertension documented in this encounter Care Teams Enrollment Consultant Relationship Specialty Start Date End Date Ciara Garcia MD 230 [place] [address] PCP - General Family Medicine 06/04/19 documented as of this encounter
--- OUTSIDE RECORDS SUMMARY | 2025-05-20 15:27 | XMS_ITS | Encounter Summary ---
Author Organization [employer] Address [address] [facility] 7t [place] [address] Care Team Providers Care Process Assistant Name Role Phone Ciara Garcia MD Primary Care Provide r Reason for Visit * Reason Comments Med Refill Encounter Details Date Type Department Care Team ([facility] st Contact Info) Description 02/26/2024 Refill [facility] 230 [place] [address] Ciara Garcia MD 230 [place] [address] Cervicalgia; Tobacco dependence syndrome; Uncomplicated asthma, unspecified [...] Description 05/28/2025 9:00 AM EST Office Visit [facility] [address] [place] [address] Ciara Garcia MD [address] [place] [address] 06/26/2025 2:00 PM EST Office Visit [facility] OPTOMETRY [address] [place] [address] Tarka, Gabriela, OD 267 [place] [address] 08/11/2025 10:30 AM EST Clinical Support [facility] [address] [place] [place] [address] Jasmina Coronado, MARIBEL documented as of this encounter Visit Diagnoses Diagnosis Cervicalgia Tobacco dependence syndrome Tobacco use disorder Uncomplicated asthma, unspecified asthma severity, unspecified whether persistent documented in this encounter Additional Health Concerns Assessment Noted Time PHQ-9 Depression Total Score: 0 12/29/19 23 11:51 AM EDT documented as of this encounter Care Teams Process Assistant Relationship Specialty Start Date End Date Ciara Garcia MD [address] [place] [phone] PCP - General Family Medicine 06/04/19 documented as of this encounter
--- OUTSIDE RECORDS SUMMARY | 2025-05-20 15:27 | XMS_ITS | Encounter Summary ---
Author Organization [employer] Address [address] [place] [address] 7t [place] [address] Care Team Providers Care Mission Worker Name Role Phone Ciara Garcia MD Primary Care Provide r Encounter Details Date Type Department Care Team (Late st Contact Info) Description 04/17/2023 Telephone [facility] MEDICINE [address] [place] [address] Ciara Garcia MD [address] [place] [address] [phone] Social History Tobacco Use Types Packs/Day Years [...] Description 05/28/2025 9:00 AM EST Office Visit [facility] MEDICINE [address] [place] [address] Ciara Garcia MD [address] [place] [address] [phone] 06/26/2025 2:00 PM EST Office Visit [facility] OPTOMETRY 267 [place] [address] Gabriela Castañeda, OD [address] [place] [address] 08/11/2025 10:30 AM EST Clinical Support [facility] MEDICINE 230 [place] [address] Jasmina Coronado RN documented as of this encounter Visit Diagnoses Not on filedocumented in this encounter Additional Health Concerns Assessment Noted Time PHQ-9 Depression Total Score: 0 12/29/19 23 11:51 AM EDT documented as of this encounter Care Teams Mission Worker Relationship Specialty Start Date End Date Ciara Garcia MD [address] [place] [address] PCP - General Family Medicine 06/04/19 documented as of this encounter
--- OUTSIDE RECORDS SUMMARY | 2025-05-20 15:27 | XMS_ITS | Encounter Summary ---
Author Organization [employer] Address [address] [place] [address] 7t [place] [address] Care Team Providers Care Optimization Analyst Name Role Phone Ciara Garcia MD Primary Care Provide r Reason for Visit * Reason Onset Date Comments Nurse Triage 02/09/2023 Encounter Details Date Type Department Care Team ([facility] st Contact Info) Description 02/09/2023 Telephone [facility] 230 [place] [address] Ciara Garcia MD 230 [place] [address] Nurse Triage Social History Tobacco Use Types [...] Pt. Had surgery done on neck at [facility] a few months ago. I do see a report of CR Spine done but that was over 1 year ago on 11/29/21 where there was a metal probe in c3-c4 interspace. Pt. States he had surgery for that the next day at [facility]. I do see surgical notes in [employer] [...] AM EST Office Visit [facility] 230 [place] [address] Ciara Garcia MD 230 [place] [address] 06/26/2025 2:00 PM EST Office Visit [facility] OPT[facility] [address] [place] [address] Gabriela Castañeda, OD 267 [place] [address] 08/11/2025 10:30 AM EST Clinical Support [facility] 230 [place] [address] Jasmina Coronado RN documented as of this encounter Visit Diagnoses Not on filedocumented in this encounter Additional Health Concerns Assessment Noted Time PHQ-9 Depression Total Score: 0 12/29/19 23 11:51 AM EDT documented as of this encounter Care Teams Optimization Analyst Relationship Specialty Start Date End Date Ciara Garcia MD 230 [place] [address] PCP - General Family Medicine 06/04/19 documented as of this encounter
--- OUTSIDE RECORDS SUMMARY | 2025-05-20 15:27 | XMS_ITS | Encounter Summary ---
Author Organization [employer] Address [address] [place] [address] 7 [place] [address] Care Team Providers Care Bowling Teacher Name Role Phone Ciara Garcia MD Primary Care Provide r Reason for Visit * Reason Comments Med Refill Encounter Details Date Type Department Care Team (Late st Contact Info) Description 08/12/2022 Refill [facility] MEDICINE [address] [place] [address] Jeannette Marquez MD [address] [place] [phone] Chronic low back pain with bilateral sciatica, [...] Description 05/28/2025 9:00 AM EST Office Visit [facility] MEDICINE [address] [place] [address] Ciara Garcia MD 230 [place] [address] 06/26/2025 2:00 PM EST Office Visit [facility] OPTOMETRY [address] [place] [address] Haydeemarcy Gabriela, OD [address] [place] [address] 08/11/2025 10:30 AM EST Clinical Support [facility] MED[facility]INE [address] [place] [address] Jasmina Coronado, MARIBEL documented as of this encounter Visit Diagnoses Diagnosis Chronic low back pain with bilateral sciatica, unspecified back pain laterality- Primary documented in this encounter Care Teams Bowling Teacher Relationship Specialty Start Date End Date Ciara Garcia MD 230 [place] [address] PCP - General Family Medicine 06/04/19 documented as of this encounter
--- OUTSIDE RECORDS SUMMARY | 2025-05-20 15:27 | XMS_ITS | Encounter Summary ---
Author Organization [employer] Address [address] [facility] 7t [place] [address] Care Team Providers Care Printed Circuit Board Designer Name Role Phone Ciara Garcia MD Primary Care Provide r Encounter Details Date Type Department Care Team ([facility] st Contact Info) Description 08/06/2024 Telephone [facility] MEDICINE 230 [place] [address] Ciara Garcia MD [address] [place] [address] Social History Tobacco Use Types Packs/Day Years [...] Description 05/28/2025 9:00 AM EST Office Visit [facility] MEDICINE [address] [place] [address] Ciara Garcia MD [address] [place] [address] 06/26/2025 2:00 PM EST Office Visit [facility] OPTOMETRY [address] [place] [address] Gabriela Castañeda, OD 267 [place] [address] 08/11/2025 10:30 AM EST Clinical Support [facility] MEDICINE [address] [place] [address] Jasmina Coronado, MARIBEL documented as of this encounter Visit Diagnoses Not on filedocumented in this encounter Additional Health Concerns Assessment Noted Time PHQ-9 Depression Total Score: 0 12/29/19 23 11:51 AM EDT documented as of this encounter Care Teams Printed Circuit Board Designer Relationship Specialty Start Date End Date Ciara Garcia MD [address] [place] [address] [phone] PCP - General Family Medicine 06/04/19 documented as of this encounter
--- OUTSIDE RECORDS SUMMARY | 2025-05-20 15:27 | XMS_ITS | Encounter Summary ---
Author Organization [employer] Address 75 [facility] 7t [place] [address] Care Team Providers Care Product Marketing Intern Name Role Phone Ciara Garcia MD Primary Care Provide r Reason for Visit * Reason Comments Med Refill Encounter Details Date Type Department Care Team ([facility] st Contact Info) Description 06/29/2023 Refill [facility] [address] [place] [address] Vianney Odom, MARKY [address] [place] [address] Chronic low back pain with bilateral sciatica, [...] Description 05/28/2025 9:00 AM EST Office Visit [facility] [address] [place] [address] Ciara Garcia MD [address] [place] [address] 06/26/2025 2:00 PM EST Office Visit [facility] [address] [place] [address] Tarka, Gabriela, OD [address] [place] [address] 08/11/2025 10:30 AM EST Clinical Support [facility] [address] [place] [phone] Jasmina Coronado, RN documented as of this encounter Visit Diagnoses Diagnosis Chronic low back pain with bilateral sciatica, unspecified back pain laterality documented in this encounter Additional Health Concerns Assessment Noted Time PHQ-9 Depression Total Score: 0 12/29/19 23 11:51 AM EDT documented as of this encounter Care Teams Product Marketing Intern Relationship Specialty Start Date End Date Ciara Garcia MD [address] [place] [address] PCP - General Family Medicine 06/04/19 documented as of this encounter
--- OUTSIDE RECORDS SUMMARY | 2025-05-20 15:27 | XMS_ITS | Encounter Summary ---
Author Organization [employer] Address [address] [place] [address] 7t [place] [address] Care Team Providers Care Golf Course Ranger Name Role Phone Ciara Garcia MD Primary Care Provide r Reason for Visit * Reason Comments Med Refill Encounter Details Date Type Department Care Team ([facility] st Contact Info) Description 12/30/2024 Refill [facility] [address] [place] [address] Jeannette Marquez MD [address] [place] [address] Tobacco dependence syndrome; Chronic low back pain [...] Description 05/28/2025 9:00 AM EST Office Visit [facility] [address] [place] [address] Ciara Garcia MD [address] [place] [address] 06/26/2025 2:00 PM EST Office Visit [facility] [address] [place] [address] Gabriela Castañeda, OD [address] [place] [address] 08/11/2025 10:30 AM EST Clinical Support [facility] [address] [place] [address] Jasmina Coronado RN documented as of this encounter Visit Diagnoses Diagnosis Tobacco dependence syndrome Tobacco use disorder Chronic low back pain with bilateral sciatica, unspecified back pain laterality documented in this encounter Additional Health Concerns Assessment Noted Time PHQ-9 Depression Total Score: 0 09/27/19 25 9:51 AM EDT documented as of this encounter Care Teams Golf Course Ranger Relationship Specialty Start Date End Date Ciara Garcia MD [address] [place] [address] PCP - General Family Medicine 06/04/19 documented as of this encounter
--- OUTSIDE RECORDS SUMMARY | 2025-05-20 15:27 | XMS_ITS | Encounter Summary ---
Author Organization [employer] Address 75 [facility] 7t [place] [address] Care Team Providers Care Cloak Room Attendant Name Role Phone Ciara Garcia MD Primary Care Provide r Reason for Visit * Reason Onset Date Comments FYI 06/20/2024 Encounter Details Date Type Department Care Team ([facility] st Contact Info) Description 06/20/2024 Telephone [facility] 230 [place] [address] Ciara Garcia MD [address] [place] [address] FYI Social History Tobacco Use Types Packs/Day [...] from spouse requesting call back to inform BIODIESEL PROCESS CONTROL TECHNICIAN nurse that pt has received medication. documented in this encounter Plan of Treatment Upcoming Encounters Date Type Department Care Team (Late st Contact Info) Description 05/28/2025 9:00 AM EST Office Visit [facility] [address] [place] [address] Ciara Garcia MD [address] [place] [address] 06/26/2025 2:00 PM EST Office Visit [facility] [address] [place] [address] Gabriela Castañeda, OD [address] [place] [address] 08/11/2025 10:30 AM EST Clinical Support [facility] [address] [place] [address] Jasmina Coronado RN documented as of this encounter Visit Diagnoses Not on filedocumented in this encounter Additional Health Concerns Assessment Noted Time PHQ-9 Depression Total Score: 0 12/29/19 23 11:51 AM EDT documented as of this encounter Care Teams Cloak Room Attendant Relationship Specialty Start Date End Date Ciara Garcia MD [address] [place] [address] PCP - General Family Medicine 06/04/19 documented as of this encounter
--- OUTSIDE RECORDS SUMMARY | 2025-05-20 15:27 | XMS_ITS | Encounter Summary ---
Author Organization [employer] Address 75 [facility] 7t [place] [address] Care Team Providers Care Front Office Clerk Name Role Phone Ciara Garcia MD Primary Care Provide r Encounter Details Date Type Department Care Team (Late st Contact Info) Description 09/02/2022 Orders Only [facility] [address] [place], [place] [phone] Jason Hatfield MD [address] [place], [place] [phone] Social History Tobacco Use Types Packs/Day Years [...] Description 05/28/2025 9:00 AM EST Office Visit [facility] [address] [place] [address] Ciara Garcia MD 230 [place] [address] 06/26/2025 2:00 PM EST Office Visit [facility] [address] [place] [address] Gabriela Castañeda, OD [address] [place] [address] 08/11/2025 10:30 AM EST Clinical Support [facility] [address] [place] [address] Jasmina Coronado RN documented as of this encounter Procedures Procedure Name Priority Date/Time Associated Diagnosis Comments ALBUMIN, RANDOM URINE W/CREATININE Routine 06/05/2023 2:50 PM EST documented in this encounter Results * (ABNORMAL) Albumin, Random Urine W/Creatinine (06/05/2023 2:50 PM EST) Creatinine, Urine 301.05 mg/dL [facility] Microalbumin Urine 248.0 mg/L [facility] Microalbum Creatinine Ratio Ur 82.3(H) <30 ug/mg cr [facility] Comment:Albumin/Creatinine R atio Reference Ranges: Normal: < 30 ug/mg creatinine Microalbuminuria: 30 - 300 ug/mg creatinineClinical Albuminuria: > 300 ug/mg creatinine 06/05/2023 2:50 PM EST 06/05/2023 4:05 PM EST us Ciara Celaya MD LAB URINE ORDERABLES Final Result [facility] [address] [place] [address] [phone] documented in this encounter Visit Diagnoses Not on filedocumented in this encounter Care Teams Front Office Clerk Relationship Specialty Start Date End Date Ciara Garcia MD [address] [place] [address] PCP - General Family Medicine 06/04/19 documented as of this encounter
--- OUTSIDE RECORDS SUMMARY | 2025-05-20 15:27 | XMS_ITS | Encounter Summary ---
Author Organization [employer] Address 75 [facility] 7t [place] [address] Care Team Providers Care Locomotive Crane Operator Helper Name Role Phone Ciaar Garcia MD Primary Care Provide r Reason for Visit * Reason Comments Med Refill Encounter Details Date Type Department Care Team ([facility] st Contact Info) Description 06/10/2024 Refill [facility] [address] [place] [address] Ciara Garcia MD [address] [place] [address] Essential hypertension Social History Tobacco Use Types [...] Description 05/28/2025 9:00 AM EST Office Visit [facility] [address] [place] [address] Ciara Garcia MD 230 [place] [address] 06/26/2025 2:00 PM EST Office Visit [facility] [address] [place] [address] TarkaGabriela, OD [address] [place] [address] 08/11/2025 10:30 AM EST Clinical Support [facility] [address] [place] [address] Jasmina Coronado, RN documented as of this encounter Visit Diagnoses Diagnosis Essential hypertension Unspecified essential hypertension documented in this encounter Additional Health Concerns Assessment Noted Time PHQ-9 Depression Total Score: 0 12/29/19 23 11:51 AM EDT documented as of this encounter Care Teams Locomotive Crane Operator Helper Relationship Specialty Start Date End Date Ciara Garcia MD [address] [place] [address] PCP - General Family Medicine 06/04/19 documented as of this encounter
--- OUTSIDE RECORDS SUMMARY | 2025-05-20 15:27 | XMS_ITS | Encounter Summary ---
Author Organization [employer] Address [address] [place] [address] 7 [place] [address] Care Team Providers Care Funeral Director'S Assistant Name Role Phone Ciara Garcia MD Primary Care Provide r Reason for Visit * Reason Onset Date Comments Med Refill 02/16/2023 Encounter Details Date Type Department Care Team ([facility] st Contact Info) Description 02/16/2023 Telephone [facility] [address] [place] [address] Ciara Garcia MD [address] [place] [address] Med Refill Social History Tobacco Use Types [...] 9:00 AM EST Office Visit [facility] [address] [place] [address] Ciara Garcia MD [address] [place] [address] 06/26/2025 2:00 PM EST Office Visit [facility] [address] [place], [place] [phone] Garbiela Castañeda, OD [address] [place], [place] [phone] 08/11/2025 10:30 AM EST Clinical Support [facility] [address] [place], [place] [phone] Jasmina Coronado RN documented as of this encounter Visit Diagnoses Not on filedocumented in this encounter Additional Health Concerns Assessment Noted Time PHQ-9 Depression Total Score: 0 12/29/19 23 11:51 AM EDT documented as of this encounter Care Teams Funeral Director'S Assistant Relationship Specialty Start Date End Date Ciara Garcia MD [address] [place], [place] [phone] PCP - General Family Medicine 06/04/19 documented as of this encounter
--- OUTSIDE RECORDS SUMMARY | 2025-05-20 15:27 | XMS_ITS | Encounter Summary ---
Author Organization [employer] Address 75 [facility] 7t [place] [address] Care Team Providers Care Forwarder Operator Name Role Phone Ciara Garcia MD Primary Care Provide r Reason for Visit * Reason Comments Med Refill Encounter Details Date Type Department Care Team ([facility] st Contact Info) Description 06/29/2023 Refill [facility] [address] [place] [address] Ciara Garcia MD [address] [place] [address] Tobacco dependence syndrome; Essential hypertension Social History [...] Description 05/28/2025 9:00 AM EST Office Visit [facility] [address] [place] [address] Ciara Garcia MD [address] [place] [address] 06/26/2025 2:00 PM EST Office Visit [facility] [address] [place] [address] Tarka, Gabriela, OD [address] [place] [address] 08/11/2025 10:30 AM EST Clinical Support [facility] [address] [place] [address] Jasmina Coronado, RN documented as of this encounter Visit Diagnoses Diagnosis Tobacco dependence syndrome Tobacco use disorder Essential hypertension Unspecified essential hypertension documented in this encounter Additional Health Concerns Assessment Noted Time PHQ-9 Depression Total Score: 0 12/29/19 23 11:51 AM EDT documented as of this encounter Care Teams Forwarder Operator Relationship Specialty Start Date End Date Ciara Garcia MD [address] [place] [address] PCP - General Family Medicine 06/04/19 documented as of this encounter
--- OUTSIDE RECORDS SUMMARY | 2025-05-20 15:27 | XMS_ITS | Encounter Summary ---
Author Organization [employer] Address 75 [facility] 7t [place] [address] Care Team Providers Care Pm Technician Name Role Phone Ciara Garcia MD Primary Care Provide r Reason for Visit * Reason Comments Med Refill Encounter Details Date Type Department Care Team ([facility] st Contact Info) Description 05/06/2024 Refill [facility] [address] [place] [address] Ciara Garcia MD [address] [place] [address] Cervicalgia; Tobacco dependence syndrome Social History Tobacco [...] Description 05/28/2025 9:00 AM EST Office Visit [facility] [address] [place] [address] Ciara Garcia MD [address] [place] [address] 06/26/2025 2:00 PM EST Office Visit [facility] [address] [place] [address] Tarka, Gabriela, OD [address] [place] [address] 08/11/2025 10:30 AM EST Clinical Support [facility] [address] [place] [address] Jasmina Coronado, MARIBEL documented as of this encounter Visit Diagnoses Diagnosis Cervicalgia Tobacco dependence syndrome Tobacco use disorder documented in this encounter Additional Health Concerns Assessment Noted Time PHQ-9 Depression Total Score: 0 12/29/19 23 11:51 AM EDT documented as of this encounter Care Teams Pm Technician Relationship Specialty Start Date End Date Ciara Garcia MD [address] [place] [address] PCP - General Family Medicine 06/04/19 documented as of this encounter
--- OUTSIDE RECORDS SUMMARY | 2025-05-20 15:27 | XMS_ITS | Encounter Summary ---
Author Organization [employer] Address [address] [place] [address] 7 [place] [address] Care Team Providers Care Supervisor Picking Crew Name Role Phone Ciara Garcia MD Primary Care Provide r Reason for Visit * Reason Onset Date Comments Nurse Triage 11/20/2024 Encounter Details Date Type Department Care Team ([facility] st Contact Info) Description 11/20/2024 Telephone [facility] [address] [place] [address] Ciara Garcia MD [address] [place] [address] Nurse Triage Social History Tobacco Use Types [...] 11/22/2024 11:32 AM EDT [place] YURSA-7 Total Score 0 11/22/2024 11:32 AM EDT [...] liquids. Pt is offered to come to [facility] but, requests to be seen in office in the next 2 days. ASK apt with Lead Web Developer Caroline 11/22/24 @ 1115am. Pt agrees with [...] acuity questions The caller accepted this outcome. [phone] documented in this encounter Plan of Treatment Upcoming Encounters Date Type Department Care Team (Late st Contact Info) Description 05/28/2025 9:00 AM EST Office Visit [facility] [address] [place], [place] [phone] Ciara Garcia MD [address] [place] [address] 06/26/2025 2:00 PM EST Office Visit [facility] [address] [place] [address] Garry Gabriela, OD [address] [place] [address] 08/11/2025 10:30 AM EST Clinical Support [facility] [address] [place] [address] Jasmina Coronado, RN documented as of this encounter Visit Diagnoses Not on filedocumented in this encounter Additional Health Concerns Assessment Noted Time PHQ-9 Depression Total Score: 0 09/27/19 25 9:51 AM EDT documented as of this encounter Care Teams Supervisor Picking Crew Relationship Specialty Start Date End Date Ciara Garcia MD [address] [place] [address] PCP - General Family Medicine 06/04/19 documented as of this encounter
--- OUTSIDE RECORDS SUMMARY | 2025-05-20 15:28 | XMS_ITS | Encounter Summary ---
Author Organization [employer] Address 75 [facility] 7t [place] [address] Care Team Providers Care Revenue Accounting Manager Name Role Phone Ciara Garcia MD Primary Care Provide r Reason for Visit * Reason Comments Med Refill Encounter Details Date Type Department Care Team ([facility] st Contact Info) Description 01/28/2025 Refill [facility] [address] [place] [address] Ciara Garcia MD [address] [place] [address] Tobacco dependence syndrome Social History Tobacco Use [...] Description 05/28/2025 9:00 AM EST Office Visit [facility] [address] [place] [address] Ciara Garcia MD [address] [place] [address] 06/26/2025 2:00 PM EST Office Visit [facility] [address] [place] [address] Gabriela Castañeda, OD [address] [place] [address] 08/11/2025 10:30 AM EST Clinical Support [facility] [address] [place] [address] Jasmina Coronado RN documented as of this encounter Visit Diagnoses Diagnosis Tobacco dependence syndrome Tobacco use disorder documented in this encounter Additional Health Concerns Assessment Noted Time PHQ-9 Depression Total Score: 0 09/27/19 25 9:51 AM EDT documented as of this encounter Care Teams Revenue Accounting Manager Relationship Specialty Start Date End Date Ciara Garcia MD [address] [place] [address] PCP - General Family Medicine 06/04/19 documented as of this encounter
--- OUTSIDE RECORDS SUMMARY | 2025-05-20 15:28 | XMS_ITS | Encounter Summary ---
Author Organization [employer] Address 75 [facility] 7t [place] [address] Care Team Providers Care Planner Chief Name Role Phone Ciara Garcia MD Primary Care Provide r Reason for Visit * Reason Comments Med Refill Encounter Details Date Type Department Care Team ([facility] st Contact Info) Description 03/04/2025 Refill [facility] [address] [place] [address] Ciara Garcia MD [address] [place] [address] Tobacco dependence syndrome Social History Tobacco Use [...] Description 05/28/2025 9:00 AM EST Office Visit [facility] [address] [place] [address] Ciara Garcia MD [address] [place] [address] 06/26/2025 2:00 PM EST Office Visit [facility] [address] [place] [address] Gabriela Castañeda, OD [address] [place] [address] 08/11/2025 10:30 AM EST Clinical Support [facility]INE [address] [place] [address] Jasmina Coronado, MARIBEL documented as of this encounter Visit Diagnoses Diagnosis Tobacco dependence syndrome Tobacco use disorder documented in this encounter Additional Health Concerns Assessment Noted Time PHQ-9 Depression Total Score: 0 09/27/19 25 9:51 AM EDT documented as of this encounter Care Teams Planner Chief Relationship Specialty Start Date End Date Ciara Garcia MD [address] [place] [address] PCP - General Family Medicine 06/04/19 documented as of this encounter
== END 2025-05-20 13:12 | disposition home or self-care (01) ==
LOC: HO.HCS 12:49
PROVIDERS: PCP Internal Medicine; Visit Provider Internal Medicine
DX: R06.02 Shortness of breath (principal)
CPT/HCPCS: 93010; 99204; G2211

== ENCOUNTER → 2025-05-20 12:49 | Outpatient (BNVA) | payer MEDICARE, MEDICAID, SELFPAY | PROVIDERS: PCP Internal Medicine; Visit Provider Internal Medicine | DX: R06.02 Shortness of breath (principal); R22.43 Localized swelling, mass and lump, lower limb, bilateral; J44.9 Chronic obstructive pulmonary disease, unspecified | CPT/HCPCS: 93005; 99202 ==

== ENCOUNTER 2025-05-28 09:45 | Outpatient (REF) | payer MEDICAID, SELFPAY ==
--- OUTSIDE RECORDS SUMMARY | 2025-05-28 09:00 | XMS_ITS | Encounter Summary ---
Author Organization [email or web address] Address [address] [place] [address] 7[address] [place] [address] Care Team Providers Care Plastics Plater Name Role Phone Ciara Garcia MD Primary Care Provide r Reason for Referral * Medications - Closed Specialty Diagnoses / Procedures Referred By Contac t Referred To Contact Diagnoses Type 2 diabetes mellitus with hyperglycemia, without long-term current use of insulin (HCC) Ciara Garcia MD [address] [place] [address] Phone: tel: fax: Referral ID Status Reason Start Date Expiration Date Visits Re quested Visits Authorized [id number] Closed 1 1 Encounter Details Date Type Department Care Team (Late st Contact Info) Description 05/28/2025 9:00 AM EST Office Visit [facility] [address] [place] [id number] Ciara Garcia MD [address] [place] [address] Metabolic dysfunction-associate d steatotic liver disease (MASLD) (Primary Dx); Type 2 diabetes mellitus with hyperglycemia, without long-term current use of insulin (HCC); SUNNY on CPAP; Chronic obstructive pulmonary disease, unspecified COPD type (CMS/HCC) (HCC); Tobacco dependence syndrome; Localized swelling of both lower legs; Diastolic dysfunction Social History Tobacco Use Types Packs/Day Years [...] Sign Reading Time Taken Comments Blood Pressure 132/80 05/28/2025 9:03 AM EST Pulse 77 05/28/2025 9:03 AM EST Temperature 34.4 C (94 F) 05/28/2025 9:03 AM EST Respiratory Rate 16 05/28/2025 9:03 AM EST Oxygen Saturation 94% 05/28/2025 9:03 AM EST Inhaled Oxygen Concentration - - Weight 113 kg (248 lb 9.6 oz) 05/28/2025 9:03 AM EST Height 175.3 cm (5' 9 ) 05/28/2025 9:03 AM EST Body Mass Index 36.71 05/28/2025 9:03 AM EST documented in this encounter Progress Notes * Ciara Celaya MD - 05/28/2025 9:00 AM EST SUBJECTIVE: Efraín Bravo is a 64 y.o. year old male who presents for Chronic Disease Management . Acute Concerns: Patient tells me for the past about a month he has not been feeling well he reports swelling of hislegs more the right leg than the left 1, shortness of breath, he tells me he feels he has been gaining weight and that he is retaining water. Patient has been seen because of this he already did venous Doppler ultrasound which was negative for DVT and is scheduled for an echocardiogram on June 17, 2025, patient also recently saw torch shearer on May 20, 2025, he tells me he ran out of his Lasix and he hesitates to take it because sometimes his blood pressure goes down today his blood pressure is 130 over 80 mmHg. Patient is interested in medication to lose weight and to control his diabetes better, I prescribed for him before [facility] but he tells me for some reason insurance did not cover. Patient is also interested in quit smoking he tells me that his sister tried Chantix and quitsmoking 2 days after so he wants to try this again Social History Social History Narrative Not on file Problem List[1] Chronic low back pain Asthma Lumbar radiculopathy Degeneration of lumbosacral intervertebral disc Hypertension Hypersomnia Neuropathy of both feet Mixed sleep apnea Onychomycosis Diabetes (HCC) Bunion Diastolic dysfunction Neck pain Numbness of upper limb Chronic obstructive lung disease (HCC) Hyperlipidemia Obstructive sleep apnea syndrome Acute kidney injury Class 1 obesity Hypoventilation Tobacco dependence syndrome Preventative health care Elevated LFTs Steatosis of liver Cacosmia JOHNSTON (nonalcoholic steatohepatitis) Kidney stones Cervicalgia Seasonal allergies Numbness and tingling Vitamin D deficiency Screening for lung cancer Allergic rhinitis Other specified disorders of nose and nasal sinuses Severe obesity (BMI 35.0-39.9) with comorbidity (CMS/HCC) (HCC) Acute nontraumatic kidney injury Tobacco dependence due to cigarettes Urinary frequency Class 2 severe obesity due to excess calories with serious comorbidity and body mass index (BMI) of35.0 to 35.9 in adult Diabetes mellitus due to underlying condition with diabetic autonomic neuropathy, 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 (HCC) UTI symptoms Long-term current use of opiate analgesic Rash Chronic diastolic (congestive) heart failure (HCC) Localized swelling of both lower legs Abdominal pain BPH associated with nocturia Arthritis Bronchitis Calculus of ureter CPAP (continuous positive airway pressure) dependence Current smoker Elevated WBC count Hydronephrosis, left Incomplete emptying of bladder due to benign prostatic hyperplasia Urinary urgency Numbness in both hands Obstruction, uropathy Poor historian Severe comorbid illness Spinal cord stimulator dysfunction Ureteral stent present COPD (chronic obstructive pulmonary disease) (HCC) COPD exacerbation (CMS/HCC) (HCC) RUDY (acute kidney injury) Complex sleep apnea syndrome SUNNY on CPAP Sleep apnea Bunion, right foot Chronic back pain Elevated liver enzymes HLD (hyperlipidemia) HTN (hypertension) IFG (impaired fasting glucose) Cervical radiculopathy Nicotine dependence, cigarettes, uncomplicated Type 2 diabetes mellitus (HCC) Family History[2] Review of Systems Constitutional: Positive for fatigue. HENT: Negative. Respiratory: Positive for cough, chest tightness and shortness of breath. Negative for apnea, choking, wheezing and stridor. Cardiovascular: Positive for leg swelling. Negative for chest pain and palpitations. OBJECTIVE: Vitals: 05/28/25 0903 BP: 132/80 BP Location: Left arm Patient Position: Sitting BP Cuff Size: Adult Pulse: 77 Resp: 16 Temp: 94 ??F (34.4 ??C) TempSrc: Temporal SpO2: 94% Weight: 248 lb 9.6 oz (113 kg) Height: 5' 9 (1.753 m) Physical Exam Cardiovascular: Rate and Rhythm: Normal rate and regular rhythm. Pulmonary: Effort: Pulmonary effort is normal. Breath sounds: Normal breath sounds. Abdominal: Palpations: Abdomen is soft. Tenderness: There is no abdominal tenderness. Musculoskeletal: Right lower le+ Pitting Edema present. Left lower le+ Pitting Edema present. Neurological: Mental Status: He is alert. Follow Up: No follow-ups on file. Medications Ordered Prior to Encounter[3] Problem List Items Addressed This Visit Type 2 diabetes mellitus (HCC) Diabetes is: not controlled - Lab Results Component Value Date HGBA1C 8.1 (A) 05/28/2025 HGBA1C 6.9 (A) 12/30/2024 HGBA1C 6.7 (H) 09/04/2024 - Lab Results Component Value Date MICROALBUR 78.0 03/25/2025 MICROALBUR 78.0 03/25/2025 CREATININE 1.18 04/29/2025 -Changes: I prescribed Mounjaro 2.5 mg weekly, extensive counseling about diabetic diet done today - Diabetic eye exam: Due soon - Diabetic foot exam: Up-to-date - Continue lifestyle modifications - Follow up: 3 months Relevant Medications Tirzepatide (Mounjaro) 2.5 MG/0.5ML solution auto-injector Other Relevant Orders POCT Glucose (Completed) POCT Hgb A1c (Completed) SUNNY on CPAP Continue to follow with sleep medicine Use CPAP every night Mounjaro prescribed hopefully he will lose some weight and improve his overall sleep apnea state COPD (chronic obstructive pulmonary disease) ([facility]) Follow-up with rn residential Smoking cessation counseling done today I will prescribe for him today Chantix Tobacco dependence syndrome Smoking cessation counseling done today Chantix prescribed today Relevant Medications Varenicline Tartrate, Starter, (Chantix Starting Month ) 0.5 MG X 11 & 1 MG X 42 tablet therapy pack Localized swelling of both lower legs Venous insufficiency versus diastolic dysfunction versus right-sided heart dysfunction Lasix prescribed today Continue to use compression stockings Do not miss appointment for echocardiogram on June 17, 2025 Continue to follow-up with cardiology and vascular Relevant Medications furosemide (Lasix) 20 MG tablet Other Relevant Orders Basic Metabolic Panel Diastolic dysfunction Patient is already being followed by torch shearer, echocardiogram is pending I decided today to refill his Lasix 20 mg daily and I also order a [facility] for electrolyte and renal function monitoring Relevant Medications furosemide (Lasix) 20 MG tablet Other Relevant Orders Basic Metabolic Panel Metabolic dysfunction-associated steatotic liver disease (MASLD) - Primary Extensive counseling about healthy diet done today Mounjaro prescribed today I will repeat an ultrasound after he has been evaluated by torch shearer [1] Patient Active Problem List Diagnosis Chronic low back pain Asthma Lumbar radiculopathy Degeneration of lumbosacral intervertebral disc Hypertension Hypersomnia Neuropathy of both feet Mixed sleep apnea Onychomycosis Diabetes (HCC) Bunion Diastolic dysfunction Neck pain Numbness of upper limb Chronic obstructive lung disease (HCC) Hyperlipidemia Obstructive sleep apnea syndrome Acute kidney injury Class 1 obesity Hypoventilation Tobacco dependence syndrome Preventative health care Elevated LFTs Steatosis of liver Cacosmia JOHNSTON (nonalcoholic steatohepatitis) Kidney stones Cervicalgia Seasonal allergies Numbness and tingling Vitamin D deficiency Screening for lung cancer Allergic rhinitis Other specified disorders of nose and nasal sinuses Severe obesity (BMI 35.0-39.9) with comorbidity (CMS/HCC) (HCC) Acute nontraumatic kidney injury Tobacco dependence due to cigarettes Urinary frequency Class 2 severe obesity due to excess calories with serious comorbidity and body mass index (BMI) of35.0 to 35.9 in adult Diabetes mellitus due to underlying condition with diabetic autonomic neuropathy, unspecified whether prison insulin use (HCC) UTI symptoms Long-term current use of opiate analgesic Rash Chronic diastolic (congestive) heart failure (HCC) Localized swelling of both lower legs Abdominal pain BPH associated with nocturia Arthritis Bronchitis Calculus of ureter CPAP (continuous positive airway pressure) dependence Current smoker Elevated WBC count Hydronephrosis, left Incomplete emptying of bladder due to benign prostatic hyperplasia Urinary urgency Numbness in both hands Obstruction, uropathy Poor historian Severe comorbid illness Spinal cord stimulator dysfunction Ureteral stent present COPD (chronic obstructive pulmonary disease) (HCC) COPD exacerbation (CMS/HCC) (HCC) RUDY (acute kidney injury) Complex sleep apnea syndrome SUNNY on CPAP Sleep apnea Bunion, right foot Chronic back pain Elevated liver enzymes HLD (hyperlipidemia) HTN (hypertension) IFG (impaired fasting glucose) Cervical radiculopathy Nicotine dependence, cigarettes, uncomplicated Type 2 diabetes mellitus (HCC) Metabolic dysfunction-associated steatotic liver disease (MASLD) [2] No family history on file. [3] Current Outpatient Medications on File Prior to Visit Medication Sig Dispense Refill albuterol (Ventolin HFA) 108 (90 Base) MCG/ACT inhaler INHALE 2 PUFFS BY MOUTH EVERY 4 TO 6 HOURS IF NEEDED FOR BRONCOSPASM OR SHORTNESS OF BREATH 18 g 2 Aspirin Low Dose 81 MG EC tablet TAKE 1 TABLET BY MOUTH EVERY DAY 90 tablet 3 atorvastatin (Lipitor) 80 MG tablet Take 1 tablet (80 mg) by mouth Once per day. 30 tablet 11 baclofen (Lioresal) 10 MG tablet TAKE 1 TABLET BY MOUTH EVERY 8 HOURS IF NEEDED FOR MUSCLE SPASMS 60 tablet 1 buPROPion SR (Wellbutrin SR) [...] AREA TWICE A DAY 100 g 3 diphenhydrAMINE (BENADryl) 25 MG tablet Take 1 tablet (25 mg) by mouth every 8 (eight) hours if needed for itching. 30 tablet 0 finasteride (Proscar) 5 MG tablet Take 1 tablet (5 mg) by mouth Once per day. Do not crush, chew, or split. 30 tablet 11 fluticasone (Flovent) 220 MCG/ACT inhaler Inhale 1 puff every 12 (twelve) hours. glucose blood (FREESTYLE LITE) test strip at bed time. ipratropium (Atrovent HFA) 17 MCG/ACT inhaler Inhale 2 puffs every 6 (six) hours. lisinopril 10 MG tablet TAKE 1 TABLET BY MOUTH EVERY DAY IN THE MORNING 90 tablet 1 loratadine (Claritin) 10 MG tablet TAKE 1 TABLET BY MOUTH EVERYDAY AT BEDTIME 90 tablet 1 metFORMIN (Glucophage) 500 MG tablet Take 1 tablet (500 mg) by mouth with breakfast and with evening meal. 60 tablet 11 modafinil (Provigil) 200 MG tablet naloxone (Narcan) 4 mg/0.1 mL nasal spray Administer 1 spray (4 mg) into affected nostril(s) if needed for opioid reversal. 2 each 3 nicotine (Nicoderm, Step 2) 14 MG/24HR patch [...] start before May 02, 2025. 84 tablet 0 polycarbophil (FiberCon) 625 MG tablet Take 1/2-1 tab once daily 30 tablet 3 tamsulosin (Flomax) 0.4 MG 24 hr capsule TAKE 1 CAPSULE BY MOUTH EVERY DAY IN THE MORNING 90 capsule 0 Vitamin D-[address] 25 MCG (1000 UT) tablet TAKE 1 TABLET (25 MCG) BY MOUTH ONCE PER DAY. 90 tablet 1 [DISCONTINUED] furosemide (Lasix) 20 MG tablet Take 1 tablet (20 mg) by mouth Once per day. 30 tablet 0 [DISCONTINUED] Tirzepatide (Mounjaro) 2.5 MG/0.5ML solution auto-injector Inject 2.5 mg under the skin 1 (one) time per week. 2 mL 2 No current facility-administered medications on file prior to visit. documented in this encounter Miscellaneous Notes * Assessment & Plan Note - Ciara Celaya MD - 05/28/2025 10:08 AM EST Associated Problem(s): Metabolic dysfunction-associated steatotic liver disease (MASLD) Extensive counseling about healthy diet done today Mounjaro prescribed today I will repeat an ultrasound after he has been evaluated by torch shearer * Assessment & Plan Note - Ciara Celaya MD - 05/28/2025 10:06 AM EST Associated Problem(s): Tobacco dependence syndrome Smoking cessation counseling done today Chantix prescribed today * Assessment & Plan Note - Ciara Celaya MD - 05/28/2025 10:06 AM EST Associated Problem(s): Localized swelling of both lower legs Venous insufficiency versus diastolic dysfunction versus right-sided heart dysfunction Lasix prescribed today Continue to use compression stockings Do not miss appointment for echocardiogram on June 17, 2025 Continue to follow-up with cardiology and vascular * Assessment & Plan Note - Ciara Celaya MD - 05/28/2025 10:05 AM EST Associated Problem(s): SUNNY on CPAP Continue to follow with sleep medicine Use CPAP every night Mounjaro prescribed hopefully he will lose some weight and improve his overall sleep apnea state * Assessment & Plan Note - Ciara Celaya MD - 05/28/2025 10:04 AM EST Associated Problem(s): COPD (chronic obstructive pulmonary disease) (HCC) Follow-up with rn residential Smoking cessation counseling done today I will prescribe for him today Chantix * Assessment & Plan Note - Ciara Celaya MD - 05/28/2025 10:03 AM EST Associated Problem(s): Type 2 diabetes mellitus (HCC) Diabetes is: not controlled - Lab Results Component Value Date HGBA1C 8.1 (A) 05/28/2025 HGBA1C 6.9 (A) 12/30/2024 HGBA1C 6.7 (H) 09/04/2024 - Lab Results Component Value Date MICROALBUR 78.0 03/25/2025 MICROALBUR 78.0 03/25/2025 CREATININE 1.18 04/29/2025 -Changes: I prescribed Mounjaro 2.5 mg weekly, extensive counseling about diabetic diet done today - Diabetic eye exam: Due soon - Diabetic foot exam: Up-to-date - Continue lifestyle modifications - Follow up: 3 months * Assessment & Plan Note - Ciara Celaya MD - 05/28/2025 10:02 AM EST Associated Problem(s): Diastolic dysfunction Patient is already being followed by torch shearer, echocardiogram is pending I decided today to refill his Lasix 20 mg daily and I also order a BMP for electrolyte and renal function monitoring documented in this encounter Plan of Treatment Upcoming Encounters Date Type Department Care Team (Late st Contact Info) Description 06/26/2025 2:00 PM EST Office Visit [facility] [address] [place] [address] Gabriela Castañeda, OD [address] [place] [address] 08/11/2025 10:30 AM EST Clinical Support [facility] [address] [place] [address] Jasmina Coronado RN Scheduled Orders Name Type Priority Associated Diagnoses Orde r Schedule Basic Metabolic Panel Lab Routine Localized swelling of both lower legs Diastolic dysfunction Expected: 05/28/2025 (Approximate), Expires: 05/28/2026 documented as of this encounter Goals Goal Patient Goal Type Associated Problems Recent Progress Patient-Stated? Author Help patients manage their type 2 diabetes Care Plan Help patients manage their type 2 diabetes No Jovana Black MA Weekly blood pressure task Care Plan Weekly blood pressure task No Jovana Black MA Help patients manage their type 2 diabetes Care Plan Help patients manage their type 2 diabetes No Jovana Black [place] Patient has chronic kidney disease Care Plan Patient has chronic kidney disease No Jovana Black [place] Weekly blood pressure task Care Plan Weekly blood pressure task Jovana Mccurdy MA Patient has chronic kidney disease Care Plan Patient has chronic kidney disease Jovana Mccurdy MA Help patients manage their type 2 diabetes Care Plan Help patients manage their type 2 diabetes No Ciara Garcia MD Help patients manage their type 2 diabetes Care Plan Help patients manage their type 2 diabetes No Ciara Garcia MD Patient has chronic kidney disease Care Plan Patient has chronic kidney disease Ciara Le MD Patient has chronic kidney disease Care Plan Patient has chronic kidney disease Ciara Le MD Weekly blood pressure task Care Plan Weekly blood pressure task Ciara Le MD Weekly blood pressure task Care Plan Weekly blood pressure task No Ciara Garcia MD documented as of this encounter Procedures Procedure Name Priority Date/Time Associated Diagnosis Comments POCT GLYCATED HEMOGLOBIN, TOTAL Routine 05/28/2025 9:06 AM EST Type 2 diabetes mellitus with hyperglycemia, without long-term current use of insulin (HCC) POCT GLUCOSE Routine 05/28/2025 9:06 AM EST Type 2 diabetes mellitus with hyperglycemia, without long-term current use of insulin (HCC) documented in this encounter Results * (ABNORMAL) POCT Hgb A1c (05/28/2025 9:06 AM EST) Hemoglobin A1C 8.1(A) 4.0 - 5.7 % QC Media Lot # [id number] Lot# Expiration Date 52,327 Blood 05/28/2025 9:06 AM EST us Ciara Celaya MD POINT OF CARE TEST EN TER/EDIT ORDERABLES Final Result * (ABNORMAL) POCT Glucose (05/28/2025 9:06 AM EST) Glucose Blood, POC 203(A) 60 - 200 mg/dL QC Media Lot # [id number] Lot# Expiration Date 7,726 Blood Capillary blood specimen / Unknown 05/28/2025 9:06 AM EST us Ciara Celaya MD POINT OF CARE TEST EN TER/EDIT ORDERABLES Final Result documented in this encounter Visit Diagnoses Diagnosis Metabolic dysfunction-associated steatotic liver disease (MASLD)- Primary Type 2 diabetes mellitus with hyperglycemia, without long-term current use of insulin (HCC) SUNNY on CPAP Chronic obstructive pulmonary disease, unspecified COPD type (CMS/HCC) (HCC) Tobacco dependence syndrome Tobacco use disorder Localized swelling of both lower legs Diastolic dysfunction Unspecified heart disease documented in this encounter Additional Health Concerns Active Problems Noted Date Diagnosed Date Help patients manage their type 2 diabetes 05/28 Weekly blood pressure task 05/28/2025 Help patients manage their type 2 diabetes 05/28 Patient has chronic kidney disease 05/28/2025 Weekly blood pressure task 05/28/2025 Patient has chronic kidney disease 05/28/2025 Help patients manage their type 2 diabetes 05/28 Help patients manage their type 2 diabetes 05/28 Patient has chronic kidney disease 05/28/2025 Patient has chronic kidney disease 05/28/2025 Weekly blood pressure task 05/28/2025 Weekly blood pressure task 05/28/2025 Assessment Noted Time PHQ-9 Depression Total Score: 0 03/06/20 11:41 AM EDT documented as of this encounter Care Teams Plastics Plater Relationship Specialty Start Date End Date Ciara Garcia MD [address] [place] [address] PCP - General Family Medicine 06/04/19 documented as of this encounter
--- OUTSIDE RECORDS SUMMARY | 2025-05-28 11:07 | XMS_ITS | Encounter Summary ---
Author Organization [employer] Address [address] [place] [address] [address] [place] [address] Care Team Providers Care Technical Support Agent Name Role Phone Ciara Garcia MD Primary Care Provide r Reason for Visit * Reason Onset Date Comments Nurse Triage 01/13/2025 Encounter Details Date Type Department Care Team ([facility] st Contact Info) Description 01/13/2025 Telephone [facility] [address] [place] [address] Ciara Garcia MD [address] [place] [address] Nurse Triage Social History Tobacco Use Types [...] Description 06/26/2025 2:00 PM EST Office Visit [facility] [address] [place], [place] [phone] Gabriela Castañeda, OD [address] [place] [address] 08/11/2025 10:30 AM EST Clinical Support [facility] [address] [place], [place] [phone] Jasmina Coronado RN documented as of this encounter Visit Diagnoses Not on filedocumented in this encounter Additional Health Concerns Assessment Noted Time PHQ-9 Depression Total Score: 0 09/27/19 25 9:51 AM EDT documented as of this encounter Care Teams Technical Support Agent Relationship Specialty Start Date End Date Ciara Garcia MD [address] [place], [place] [phone] PCP - General Family Medicine 06/04/19 documented as of this encounter
--- OUTSIDE RECORDS SUMMARY | 2025-05-28 11:07 | XMS_ITS | Encounter Summary ---
Author Organization [employer] Address [address] [facility] [address] [place] [address] Care Team Providers Care Switch House Operator Name Role Phone Ciara Garcia MD Primary Care Provide r Reason for Visit * Reason Comments Med Refill Encounter Details Date Type Department Care Team ([facility] st Contact Info) Description 06/10/2024 Refill [facility] [address] [place] [address] Ciara Garcia MD [address] [place] [address] Essential hypertension Social History Tobacco Use Types [...] Description 06/26/2025 2:00 PM EST Office Visit [facility] [address] [place], [place] [phone] Gabriela Castañeda, OD [address] [place] [address] 08/11/2025 10:30 AM EST Clinical Support [facility] [address] [place] [address] Jasmina Coronado, RN documented as of this encounter Visit Diagnoses Diagnosis Essential hypertension Unspecified essential hypertension documented in this encounter Additional Health Concerns Assessment Noted Time PHQ-9 Depression Total Score: 0 12/29/19 23 11:51 AM EDT documented as of this encounter Care Teams Switch House Operator Relationship Specialty Start Date End Date Ciara Garcia MD [address] [place] [address] PCP - General Family Medicine 06/04/19 documented as of this encounter
--- OUTSIDE RECORDS SUMMARY | 2025-05-28 11:07 | XMS_ITS | Encounter Summary ---
Author Organization [employer] Address [address] [place] [address] [address] [place] [address] Care Team Providers Care Bilingual Student Tutor Name Role Phone Ciara Garcia MD Primary Care Provide r Reason for Visit * Reason Onset Date Comments Chart Prep 05/27/2025 Encounter Details Date Type Department Care Team ([facility] st Contact Info) Description 05/27/2025 Telephone [facility] [address] [place] [address] Ciara Garcia MD [address] [place] [address] Chart Prep Social History Tobacco Use Types Packs/Day Years [...] encounter Miscellaneous Notes * Telephone Encounter - Jovana Black MA - 05/27/2025 3:23 PM EST Chart Prep Labs: done 05/08/25 Images: done 02/05/25 Referrals: no show cardiology on 04/30/25 Vaccines due: Covid and Flu Screenings: colonoscopy eye exam Overdue care gaps: A1c and Glucose documented in this encounter Plan of Treatment Upcoming Encounters Date Type Department Care Team (Late st Contact Info) Description 06/26/2025 2:00 PM EST Office Visit [facility] [address] [place] [address] Gabriela Castañeda OD [address] [place] [address] 08/11/2025 10:30 AM EST Clinical Support [facility] [address] [place] [address] Jasmina Coronado, MARIBEL documented as of this encounter Visit Diagnoses Not on filedocumented in this encounter Additional Health Concerns Assessment Noted Time PHQ-9 Depression Total Score: 0 03/06/20 25 11:41 AM EDT documented as of this encounter Care Teams Bilingual Student Tutor Relationship Specialty Start Date End Date Ciara Garcia MD [address] [place] [address] PCP - General Family Medicine 06/04/19 documented as of this encounter
--- OUTSIDE RECORDS SUMMARY | 2025-05-28 11:07 | XMS_ITS | Encounter Summary ---
Author Organization [employer] Address [address] [facility] 7t [place] [address] Care Team Providers Care Funeral Pre Arrangement Counselor Name Role Phone Ciara Garcia MD Primary Care Provide r Reason for Visit * Reason Comments Med Refill Encounter Details Date Type Department Care Team ([facility] st Contact Info) Description 05/06/2024 Refill [facility] MEDICINE [address] [place] [address] Ciara Garcia MD [address] [place] [address] Cervicalgia; Tobacco dependence syndrome Social History Tobacco [...] Description 06/26/2025 2:00 PM EST Office Visit [facility] OPTOMETRY [address] [place], [place] [phone] Gabriela Castañeda, OD [address] [place] [address] 08/11/2025 10:30 AM EST Clinical Support [facility] MEDICINE [address] [place] [address] Jasmina Coronado RN documented as of this encounter Visit Diagnoses Diagnosis Cervicalgia Tobacco dependence syndrome Tobacco use disorder documented in this encounter Additional Health Concerns Assessment Noted Time PHQ-9 Depression Total Score: 0 12/29/19 23 11:51 AM EDT documented as of this encounter Care Teams Funeral Pre Arrangement Counselor Relationship Specialty Start Date End Date Ciara Garcia MD [address] [place] [address] PCP - General Family Medicine 06/04/19 documented as of this encounter
--- OUTSIDE RECORDS SUMMARY | 2025-05-28 11:07 | XMS_ITS | Patient Health Record ---
Author Organization [facility] Address [address] [place] [address] Care Team Providers Care Booking Manager Name Role Phone Tanner Carrera [phone] Reason For Referral No Information Plan Of Treatment No Information
--- OUTSIDE RECORDS SUMMARY | 2025-05-28 11:07 | XMS_ITS | Encounter Summary ---
Author Organization [employer] Address [address] [facility] 7t [place] [address] Care Team Providers Care Friction Welding Machine Operator Name Role Phone Ciara Garcia MD Primary Care Provide r Encounter Details Date Type Department Care Team ([facility] st Contact Info) Description 08/06/2024 Telephone [facility] MEDICINE [address] [place] [address] Ciara Garcia MD [address] [place] [address] Social History Tobacco Use Types Packs/Day Years [...] Description 06/26/2025 2:00 PM EST Office Visit [facility] OPTOMETRY [address] [place], [place] [phone] Gabriela Castañeda, OD [address] [place] [address] 08/11/2025 10:30 AM EST Clinical Support [facility] MEDICINE [address] [place] [address] Jasmina Coronado RN documented as of this encounter Visit Diagnoses Not on filedocumented in this encounter Additional Health Concerns Assessment Noted Time PHQ-9 Depression Total Score: 0 12/29/19 23 11:51 AM EDT documented as of this encounter Care Teams Friction Welding Machine Operator Relationship Specialty Start Date End Date Ciara Garcia MD [address] [place] [address] PCP - General Family Medicine 06/04/19 documented as of this encounter
--- OUTSIDE RECORDS SUMMARY | 2025-05-28 11:07 | XMS_ITS | Encounter Summary ---
Author Organization [employer] Address [address] [facility] 7t [place] [address] Care Team Providers Care Tobacco Checkout Clerk Name Role Phone Ciara Garcia MD Primary Care Provide r Reason for Visit * Reason Comments Med Refill Encounter Details Date Type Department Care Team ([facility] st Contact Info) Description 01/28/2025 Refill [facility] MEDICINE [address] [place] [address] Ciara Garcia MD [address] [place] [address] Tobacco dependence syndrome Social History Tobacco Use [...] Description 06/26/2025 2:00 PM EST Office Visit [facility] OPTOMETRY [address] [place] [address] Tarka, Gabriela, OD [address] [place] [address] 08/11/2025 10:30 AM EST Clinical Support [facility] MEDICINE [address] [place] [address] Jasmina Coronado, RN documented as of this encounter Visit Diagnoses Diagnosis Tobacco dependence syndrome Tobacco use disorder documented in this encounter Additional Health Concerns Assessment Noted Time PHQ-9 Depression Total Score: 0 09/27/19 25 9:51 AM EDT documented as of this encounter Care Teams Tobacco Checkout Clerk Relationship Specialty Start Date End Date Ciara Garcia MD [address] [place] [address] PCP - General Family Medicine 06/04/19 documented as of this encounter
--- OUTSIDE RECORDS SUMMARY | 2025-05-28 11:07 | XMS_ITS | Encounter Summary ---
Author Organization [employer] Address [address] [place] [address] 7t [place] [address] Care Team Providers Care Integrity Assessor Name Role Phone Ciara Garcia MD Primary Care Provide r Reason for Visit * Reason Comments Med Refill Encounter Details Date Type Department Care Team (Late st Contact Info) Description 12/06/2022 Refill [facility] MEDICINE [address] [place] [address] Mary Trejo, MARKY Essential hypertension Social History [...] Description 06/26/2025 2:00 PM EST Office Visit [facility] OPTOMETRY [address] [place] [address] Gabriela Csatañeda, OD [address] [place] [address] 08/11/2025 10:30 AM EST Clinical Support [facility] MEDICINE [address] [place] [address] Jasmina Coronado, MARIBEL documented as of this encounter Visit Diagnoses Diagnosis Essential hypertension Unspecified essential hypertension documented in this encounter Care Teams Integrity Assessor Relationship Specialty Start Date End Date iCara Garcia MD [address] [place] [address] PCP - General Family Medicine 06/04/19 documented as of this encounter
--- OUTSIDE RECORDS SUMMARY | 2025-05-28 11:07 | XMS_ITS | Encounter Summary ---
Author Organization [employer] Address [address] [place] [address] 7t [place] [address] Care Team Providers Care Manager Assisted Living Name Role Phone Ciara Garcia MD Primary Care Provide r Reason for Visit * Reason Comments Med Refill Encounter Details Date Type Department Care Team ([facility] st Contact Info) Description 12/30/2024 Refill [facility] MEDICINE [address] [place] [address] Jeannette Marquez MD [address] [place] [address] Tobacco dependence syndrome; Chronic low back pain [...] Description 06/26/2025 2:00 PM EST Office Visit [facility] OPTOMETRY [address] [place] [address] Tarka, Gabriela, OD [address] [place] [address] 08/11/2025 10:30 AM EST Clinical Support [facility] MEDICINE [address] [place] [address] Jasmina Coronado, RN documented as of this encounter Visit Diagnoses Diagnosis Tobacco dependence syndrome Tobacco use disorder Chronic low back pain with bilateral sciatica, unspecified back pain laterality documented in this encounter Additional Health Concerns Assessment Noted Time PHQ-9 Depression Total Score: 0 09/27/19 25 9:51 AM EDT documented as of this encounter Care Teams Manager Assisted Living Relationship Specialty Start Date End Date Ciara Garcia MD [address] [place] [address] PCP - General Family Medicine 06/04/19 documented as of this encounter
--- OUTSIDE RECORDS SUMMARY | 2025-05-28 11:07 | XMS_ITS | Encounter Summary ---
Author Organization [employer] Address [address] [facility] 7t [place] [address] Care Team Providers Care De Alcoholizer Name Role Phone Ciara Garcia MD Primary Care Provide r Reason for Visit * Reason Comments Med Refill Encounter Details Date Type Department Care Team ([facility] st Contact Info) Description 06/01/2024 Refill [facility] MEDICINE [address] [place] [address] Ciara Garcia MD [address] [place] [address] Cervicalgia; Tobacco dependence syndrome; Uncomplicated asthma, unspecified [...] 2:00 PM EST Office Visit [facility] OPTOMETRY [address] [place] [address] TarkaGabriela, OD [address] [place] [address] 08/11/2025 10:30 AM EST Clinical Support [facility] MEDICINE [address] [place] [address] Jasmina Coronado, MARIBEL documented as of this encounter Visit Diagnoses Diagnosis Cervicalgia Tobacco dependence syndrome Tobacco use disorder Uncomplicated asthma, unspecified asthma severity, unspecified whether persistent documented in this encounter Additional Health Concerns Assessment Noted Time PHQ-9 Depression Total Score: 0 12/29/19 23 11:51 AM EDT documented as of this encounter Care Teams De Alcoholizer Relationship Specialty Start Date End Date Ciara Garcia MD [address] [place] [address] PCP - General Family Medicine 06/04/19 documented as of this encounter
--- OUTSIDE RECORDS SUMMARY | 2025-05-28 11:07 | XMS_ITS | Encounter Summary ---
Author Organization [employer] Address [address] [facility] 7t [place] [address] Care Team Providers Care Product Development Actuary Name Role Phone Ciara Garcia MD Primary Care Provide r Reason for Visit * Reason Comments Med Refill Encounter Details Date Type Department Care Team ([facility] st Contact Info) Description 02/26/2024 Refill [facility] MEDICINE [address] [place] [address] Ciara Garcia MD [address] [place] [address] Cervicalgia; Tobacco dependence syndrome; Uncomplicated asthma, unspecified [...] Description 06/26/2025 2:00 PM EST Office Visit [facility] OPTOMETRY [address] [place] [address] TarkaGabriela, OD [address] [place] [address] 08/11/2025 10:30 AM EST Clinical Support [facility] MEDICINE [address] [place] [address] Jasmina Coronado, MARIBEL documented as of this encounter Visit Diagnoses Diagnosis Cervicalgia Tobacco dependence syndrome Tobacco use disorder Uncomplicated asthma, unspecified asthma severity, unspecified whether persistent documented in this encounter Additional Health Concerns Assessment Noted Time PHQ-9 Depression Total Score: 0 12/29/19 23 11:51 AM EDT documented as of this encounter Care Teams Product Development Actuary Relationship Specialty Start Date End Date Ciara Garcia MD [address] [place] [address] PCP - General Family Medicine 06/04/19 documented as of this encounter
--- OUTSIDE RECORDS SUMMARY | 2025-05-28 11:07 | XMS_ITS | Encounter Summary ---
Author Organization [employer] Address [address] [place] [address] 7t [place] [address] Care Team Providers Care End Touching Machine Operator Name Role Phone Ciara Garcia MD Primary Care Provide r Reason for Visit * Reason Onset Date Comments Nurse Triage 01/20/2025 Encounter Details Date Type Department Care Team ([facility] st Contact Info) Description 01/20/2025 Telephone [facility] MEDICINE [address] [place] [address] Ciara Garcia MD [address] [place] [address] Nurse Triage Social History Tobacco Use Types [...] EDT Triage call Pt was seen in [facility] ED 01/17/25 and dx of RUDY and kidney stone was given. Pt reports pain with urination and left lower quadrant abdominal pain and flank pain. Pt is taking cefuroxime [id number] po bid x10 days as prescribed. Pt [...] ED visit on : Date: 01/17/2025 Hospital: [facility] Seen for: Kidney Stones Symptomatic Yes *if yes message should go to Triage Patient advised will forward to team nurse for follow up Contact at [phone] documented in this encounter Plan of Treatment Upcoming Encounters Date Type Department Care Team (Late st Contact Info) Description 06/26/2025 2:00 PM EST Office Visit [facility] OPTOMETRY [address] [place], [place] [phone] Gabriela Castañeda, OD [address] [place] [address] 08/11/2025 10:30 AM EST Clinical Support [facility] MEDICINE [address] [place] [address] Jasmina Coronado, MARIBLE documented as of this encounter Visit Diagnoses Not on filedocumented in this encounter Additional Health Concerns Assessment Noted Time PHQ-9 Depression Total Score: 0 09/27/19 25 9:51 AM EDT documented as of this encounter Care Teams End Touching Machine Operator Relationship Specialty Start Date End Date Ciara Garcia MD [address] [place] [address] PCP - General Family Medicine 06/04/19 documented as of this encounter
--- OUTSIDE RECORDS SUMMARY | 2025-05-28 11:07 | XMS_ITS | Encounter Summary ---
Author Organization [employer] Address [address] [facility] 7t [place] [address] Care Team Providers Care Biomass Power Plant Manager Name Role Phone Ciara Garcia MD Primary Care Provide r Encounter Details Date Type Department Care Team (Late Contact Info) Description 09/02/2022 Orders Only [facility] MED & PEDS [address] [place], [place] [phone] Jason Hatfield MD 230 [place] [address] Social History Tobacco Use Types Packs/Day Years [...] Department Care Team (Late Contact Info) Description 06/26/2025 2:00 PM EST Office Visit [facility] OPTOMETRY [address] [place] [address] Gabriela Castañeda, OD [address] [place] [address] 08/11/2025 10:30 AM EST Clinical Support [facility] MEDICINE [address] [place] [address] Jasmina Coronado, RN documented as of this encounter Procedures Procedure Name Priority Date/Time Associated Diagnosis Comments ALBUMIN, RANDOM URINE W/CREATININE Routine 06/05/2023 2:50 PM EST documented in this encounter Results * (ABNORMAL) Albumin, Random Urine W/Creatinine (06/05/2023 2:50 PM EST) Creatinine, Urine 301.05 mg/dL [facility] Microalbumin Urine 248.0 mg/L [facility] Microalbum Creatinine Ratio Ur 82.3(H) <30 ug/mg cr [facility] Comment:Albumin/Creatinine R atio Reference Ranges: Normal: < 30 ug/mg creatinine Microalbuminuria: 30 - 300 ug/mg creatinineClinical Albuminuria: > 300 ug/mg creatinine 06/05/2023 2:50 PM EST 06/05/2023 4:05 PM EST us Ciara Celaya MD LAB URINE ORDERABLES Final Result [facility] [address] [place] [address] [phone] documented in this encounter Visit Diagnoses Not on filedocumented in this encounter Care Teams Biomass Power Plant Manager Relationship Specialty Start Date End Date Ciara Garcia MD [address] [place] [address] PCP - General Family Medicine 06/04/19 documented as of this encounter
--- OUTSIDE RECORDS SUMMARY | 2025-05-28 11:07 | XMS_ITS | Encounter Summary ---
Author Organization [employer] Address [address] [facility] 7t [place] [address] Care Team Providers Care Engineering Supplies Sales Name Role Phone Ciara Garcia MD Primary Care Provide r Encounter Details Date Type Department Care Team (Latest Contact Info) Description 05/28/2025 Travel Social History Tobacco Use Types Packs/Day [...] Description 06/26/2025 2:00 PM EST Office Visit [facility] OPTOMETRY [address] [place] [address] TarkaGabriela, OD [address] [place] [address] 08/11/2025 10:30 AM EST Clinical Support [facility] MEDICINE [address] [place] [address] Jasmina Coronado RN documented as of this encounter Goals Goal [...] has chronic kidney disease Jovana Mccurdy MA Weekly blood pressure task Care Plan Weekly blood pressure task No Jovana Black MA Patient has chronic kidney disease Care Plan Patient has chronic kidney disease No Jovana Black [place] Help patients manage [...] blood pressure task No Ciara Garcia MD Weekly blood pressure task Care Plan Weekly blood pressure task No Ciara Garcia MD documented as of this encounter Visit Diagnoses Not on filedocumented in this encounter Additional Health Concerns Active [...] documented as of this encounter Care Teams Engineering Supplies Sales Relationship Specialty Start Date End Date Ciara Garcia MD [address] [place] [address] PCP - General Family Medicine 06/04/19 documented as of this encounter
--- OUTSIDE RECORDS SUMMARY | 2025-05-28 11:07 | XMS_ITS | Encounter Summary ---
Author Organization [employer] Address [address] [facility] 7t [place] [address] Care Team Providers Care Manager Mail Name Role Phone Ciara Garcia MD Primary Care Provide r Reason for Visit * Reason Onset Date Comments FYI 06/20/2024 Encounter Details Date Type Department Care Team ([facility] st Contact Info) Description 06/20/2024 Telephone [facility] MEDICINE [address] [place] [address] Ciara Garcia MD 230 [place] [address] FYI Social History Tobacco Use Types Packs/Day [...] from spouse requesting call back to inform AUTO RADIATOR MECHANIC nurse that pt has received medication. documented in this encounter Plan of Treatment Upcoming Encounters Date Type Department Care Team (Late st Contact Info) Description 06/26/2025 2:00 PM EST Office Visit [facility] OPTOMETRY [address] [place] [address] Tarka, Gabriela, OD [address] [place] [address] 08/11/2025 10:30 AM EST Clinical Support [facility] MEDICINE [address] [place] [address] Jasmina Coronado, RN documented as of this encounter Visit Diagnoses Not on filedocumented in this encounter Additional Health Concerns Assessment Noted Time PHQ-9 Depression Total Score: 0 12/29/19 23 11:51 AM EDT documented as of this encounter Care Teams Manager Mail Relationship Specialty Start Date End Date Ciara Garcia MD 230 [place] [address] PCP - General Family Medicine 06/04/19 documented as of this encounter
--- OUTSIDE RECORDS SUMMARY | 2025-05-28 11:07 | XMS_ITS | Encounter Summary ---
Author Organization [employer] Address [address] [place] [address] 7t [place] [address] Care Team Providers Care Icd 9 Coder Name Role Phone Ciara Garcia MD Primary Care Provide r Reason for Visit * Reason Onset Date Comments Nurse Triage 02/09/2023 Encounter Details Date Type Department Care Team ([facility] st Contact Info) Description 02/09/2023 Telephone [facility] MEDICINE [address] [place] [address] Ciara Garcia MD 230 [place] [address] Nurse Triage Social History Tobacco Use Types [...] Pt. Had surgery done on neck at [facility] a few months ago. I do see a report of CR Spine done but that was over 1 year ago on 11/29/21 where there was a metal probe in c3-c4 interspace. Pt. States he had surgery for that the next day at [facility]. I do see surgical notes in [employer] [...] Description 06/26/2025 2:00 PM EST Office Visit [facility] OPTOMETRY [address] [place] [address] Gabriela Castañeda, OD [address] [place] [address] 08/11/2025 10:30 AM EST Clinical Support [facility] MEDICINE [address] [place] [address] Jasmina Coronado, MARIBEL documented as of this encounter Visit Diagnoses Not on filedocumented in this encounter Additional Health Concerns Assessment Noted Time PHQ-9 Depression Total Score: 0 12/29/19 23 11:51 AM EDT documented as of this encounter Care Teams Icd 9 Coder Relationship Specialty Start Date End Date Ciara Garcia MD [address] [place] [address] PCP - General Family Medicine 06/04/19 documented as of this encounter
--- OUTSIDE RECORDS SUMMARY | 2025-05-28 11:07 | XMS_ITS | Encounter Summary ---
Author Organization [facility] [employer] Address [address] [place] [address] 7t [place] [address] Care Team Providers Care Nozzle Cement Sprayer Helper Name Role Phone Ciara Garcia MD Primary Care Provide r Encounter Details Date Type Department Care Team (Late st Contact Info) Description 06/13/[address] [facility] MEDICINE [address] [place] [address] ProviderEdwin MD Social History Tobacco Use Types [...] Description 06/26/2025 2:00 PM EST Office Visit [facility] OPTOMETRY [address] [place] [address] Gbariela Castañeda OD [address] [place] [address] 08/11/2025 10:30 AM EST Clinical Support [facility] MEDICINE 230 [place] [address] Jasmina Coronado RN documented as of this encounter Visit Diagnoses Not on filedocumented in this encounter Care Teams Nozzle Cement Sprayer Helper Relationship Specialty Start Date End Date Ciara Garcia MD [address] [place] [address] PCP - General Family Medicine 06/04/19 documented as of this encounter
--- OUTSIDE RECORDS SUMMARY | 2025-05-28 11:07 | XMS_ITS | Encounter Summary ---
Author Organization [employer] Address [address] [facility] 7t [place] [address] Care Team Providers Care Hand Plate Stacker Name Role Phone Ciara Garcia MD Primary Care Provide r Reason for Visit * Reason Comments Med Refill Encounter Details Date Type Department Care Team ([facility] st Contact Info) Description 03/04/2025 Refill [facility] MEDICINE [address] [place] [address] Ciara Garcia MD [address] [place] [address] Tobacco dependence syndrome Social History Tobacco Use [...] Description 06/26/2025 2:00 PM EST Office Visit [facility] OPTOMETRY [address] [place] [address] Gabriela Castañeda, OD [address] [place] [address] 08/11/2025 10:30 AM EST Clinical Support [facility] MEDICINE [address] [place] [address] Jasmina Coronado RN documented as of this encounter Visit Diagnoses Diagnosis Tobacco dependence syndrome Tobacco use disorder documented in this encounter Additional Health Concerns Assessment Noted Time PHQ-9 Depression Total Score: 0 09/27/19 25 9:51 AM EDT documented as of this encounter Care Teams Hand Plate Stacker Relationship Specialty Start Date End Date Ciara Garcia MD [address] [place] [address] PCP - General Family Medicine 06/04/19 documented as of this encounter
--- OUTSIDE RECORDS SUMMARY | 2025-05-28 11:07 | XMS_ITS | Encounter Summary ---
Author Organization [employer] Address [address] [place] [address] [address] [place] [address] Care Team Providers Care Frame Changer Name Role Phone Ciara Garcia MD Primary Care Provide r Reason for Visit * Reason Onset Date Comments Nurse Triage 11/20/2024 Encounter Details Date Type Department Care Team ([facility] st Contact Info) Description 11/20/2024 Telephone [facility] MEDICINE [address] [place] [address] Ciara Garcia MD [address] [place] [address] Nurse Triage Social History Tobacco Use Types [...] liquids. Pt is offered to come to [facility] but, requests to be seen in office in the next 2 days. ASK apt with System Controller Caroline 11/22/24 @ 1115am. Pt agrees with [...] acuity questions The caller accepted this outcome. [phone] documented in this encounter Plan of Treatment Upcoming Encounters Date Type Department Care Team (Late st Contact Info) Description 06/26/2025 2:00 PM EST Office Visit [facility] OPTOMETRY [address] [place] [address] Gabriela Castañeda, OD [address] [place] [address] 08/11/2025 10:30 AM EST Clinical Support [facility] MEDICINE [address] [place], [place] [phone] Jasmina Coronado, RN documented as of this encounter Visit Diagnoses Not on filedocumented in this encounter Additional Health Concerns Assessment Noted Time PHQ-9 Depression Total Score: 0 09/27/19 25 9:51 AM EDT documented as of this encounter Care Teams Frame Changer Relationship Specialty Start Date End Date Ciara Garcia MD [address] [place] [address] PCP - General Family Medicine 06/04/19 documented as of this encounter
--- OUTSIDE RECORDS SUMMARY | 2025-05-28 11:07 | XMS_ITS | Clinical Summary ---
Author Organization [employer] Address [address] [place] [address] [address] [place] [address] Care Team Providers Care Continuous Improvement Facilitator Name Role Phone Ciara Garcia MD Primary [...] MOUTH ONCE PER DAY. 90 tablet 1 025 Active cyanocobalamin (Vitamin B-12) 1000 MCG [...] opioid reversal. 2 each 3 025 Active atorvastatin (Lipitor) 80 MG tabletIndications :Hyperlipidemia, unspecified hyperlipidemia type Take 1 tablet (80 mg) by mouth Once per day. 30 tablet 11 025 2025 Active diphenhydrAMINE (BENADryl) 25 MG tabletIndications :Rash [...] NEEDED FOR MUSCLE SPASMS 60 tablet 1 Active Tirzepatide (Mounjaro) 2.5 MG/0.5ML solution auto-injectorIndi cations:Type 2 diabetes mellitus with hyperglycemia, without long-term current use of insulin (HCC) Inject 2.5 mg under the skin 1 (one) time per week. 2 mL 2 Active Varenicline Tartrate, Starter, (Chantix Starting Month ) 0.5 MG X 11 & 1 MG X 42 tablet therapy packIndications:T obacco dependence syndrome Take 1 tablet by mouth Once per day. 53 each 025 Active furosemide (Lasix) 20 MG tabletIndications :Localized swelling of both lower legs,Diastolic dysfunction Take 1 tablet (20 mg) by mouth Once per day. 30 tablet 025 Active amLODIPine (Norvasc) 10 MG tablet [...] OR CHEW. 180 tablet 025 2024 Discontinued Tirzepatide (Mounjaro) 2.5 MG/0.5ML solution auto-injectorIndi cations:Type 2 diabetes mellitus without complication, without long-term current use of insulin (HCC) Inject 2.5 mg under the skin 1 (one) time per week. 2 mL 2 025 2024 Discontinued baclofen (Lioresal) 10 MG [...] EVERY 8 HOURS WITH FOOD 90 tablet 2024 Discontinued(T herapy completed) furosemide (Lasix) 20 MG tabletIndications :Localized swelling of both lower legs,Diastolic dysfunction Take 1 tablet (20 mg) by mouth Once per day. 30 tablet 025 2024 Discontinued(R eorder (will not trigger notification to Pharmacy)) predniSONE (Deltasone) 20 MG tabletIndications :Asthma Take 2 tablets (40 mg) by mouth Once per day for 3 days, THEN 1 tablet (20 mg) Once per day for 2 days, THEN 0.5 tablets (10 mg) Once per day for 2 days. 9 tablet 025 2024 Active Problems Problem Noted Date Diagnosed Date Metabolic dysfunction-associ ated steatotic liver disease (MASLD) 05/28/2025 Assessment & Plan (05/28/2025 10:08 AM EST): Extensive counseling about healthy diet done today Martin prescribed today I will repeat an ultrasound after he has been evaluated by lumber chain offbearer Abdominal pain 05/27/2025 BPH associated with nocturia 05/27/2025 Arthritis 05/27/2025 Bronchitis 05/27/2025 Calculus of ureter 05/27/2025 CPAP (continuous positive airway pressure) depdavid bajwace 05/27/2025 Current smoker 05/27/2025 Elevated WBC count 05/27/2025 Hydronephrosis, left 05/27/2025 Incomplete emptying of bladd er due to benign prostatic hyperplasia 05/27/2025 Urinary urgency 05/27/2025 Numbness in both hands 05/27/2025 Obstruction, uropathy 05/27/2025 Poor historian 05/27/2025 Overview (05/27/2025): Difficult to assess-limited detail, dates ETC Severe comorbid illness 05/27/2025 Overview (05/27/2025): A very pleasant 59-year-old male smoker, with multiple comorbid illness to include COPD, asthma, seizure disorder, referred for screening colonoscopy. He has no GI complaints. Due to his health status at this time would hold off as he is at increased risk for anesthesia. He has upcoming all pulmonary consult. He has obvious shortness of breath just well as speaking on the phone. Is a smoker trying to cut back. Will see him back in a few months, he requests 6 months he wants to get through COVID as well as through the cold weather. We will have him follow up next time within MD that will be doing his procedure. He agrees with the plan. He agrees to call with any questions or concerns. Spinal cord stimulator dysfunction 05/27/2025 Ureteral stent present 05/27/2025 COPD (chronic obstructive pulmonary disease) 05/2025 Overview (05/27/2025): HIS COPD IS RELATED TO PREVIOUS HISTORY OF BRONCHIAL ASTHMA AND CONTINUED SMOKING. IT IS HOLDING QUITE STABLE. TX: : CONT. Wixela 250-50 ONE INH BID INCRUSE Ellipta ONE INH DAILY ALBUTEROL HFA 2 PUFFS Q 4 HRS PRN ( He wants Proair ) FOR COUGH USE ROBITUSSIN 2 TSF TID , NEEDED . 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 HE NEEDS TO HAVE CPAP TITRATION FOR ASV MODE. HE IS BEING FOLLOWED BY DR. ARENAS . SUNNY on CPAP 05/27/2025 Overview (05/27/2025): KNOWN TO HAVE SLEEP APNEA - he has machine but NO supplies- BEING FOLLOWED BY SLEEP MD. IN [place]. Assessment & Plan (05/28/2025 10:05 AM EST): Continue to follow with sleep medicine Use CPAP every night Mounjaro prescribed hopefully he will lose some weight and improve his overall sleep apnea state Sleep apnea 05/27/2025 Overview (05/27/2025): His last sleep study showed that he has a complex sleep apnea, with lot of the central component. I think his central sleep apnea is contributed by narcotic med as OxyContin 80 mg b.i.d.. Patient is being followed by Dr. Arenas, and has had titration study with ASV mode . Awaiting to get CPAP WITH ASV . MODE . Elevated liver enzymes 05/27/2025 Overview (05/27/2025): Most recent liver enzymes 05/2023 HTN (hypertension) 05/27/2025 Nicotine dependence, cigarettes, uncomplicated 1 07/27/2024 Overview (05/27/2025): (smoker 1ppd x 40yrs, now 1/4ppd) Rash 04/29/2025 Assessment & Plan (04/29/2025 3:54 [...] treatment and normal blood work, referral to drier attendant discussed. Advised to monitor for possible [...] both lower legs 04/29/2025 Assessment & Plan (05/28/2025 10:06 AM EST): Venous insufficiency versus diastolic dysfunction versus right-sided heart dysfunction Lasix prescribed today Continue to use compression stockings Do not miss appointment for echocardiogram on June 17, 2025 Continue to follow-up with cardiology and vascular Assessment & Plan (04/29/2025 3:56 PM EDT): [...] condition with diabetic autonomic neuropathy, unspecified whether terminal block assembler insulin use 12/30/2024 Assessment & Plan (12/30/2024 [...] Onychomycosis 08/25/2022 Chronic low back pain 06/16/2022 COPD exacerbation (CMS/HCC) 12/14/2021 Bunion, right foot 12/14/2021 Chronic back pain 12/14/2021 HLD (hyperlipidemia) 12/14/2021 IFG (impaired fasting glucose) 12/14/2021 Cervical radiculopathy 12/14/2021 Type 2 diabetes mellitus 12/14/2021 Assessment & Plan (05/28/2025 10:04 AM EST): Diabetes is: not controlled - Lab Results [...] lifestyle modifications - Follow up: 3 months Acute kidney injury 03/24/2021 Acute nontraumatic kidney [...] Tobacco dependence syndrome 03/28/2018 Assessment & Plan (05/28/2025 10:06 AM EST): Smoking cessation counseling done today Chantix prescribed today Assessment & Plan (03/27/2023 10:00 AM EDT): Smoking cessation counseling done Patient will try with bupropion Mixed sleep apnea 07/20/2016 Diastolic dysfunction 01/21/2015 Assessment & Plan (05/28/2025 10:02 AM EST): Patient is already being followed by lumber chain offbearer, echocardiogram is pending I decided today to refill his Lasix 20 mg daily and I also order a BMP for electrolyte and renal function monitoring Assessment & Plan (12/30/2024 10:24 AM EDT): [...] Problem Noted Date Diagnosed Date Resolved Date Seizure disorder ([facility]) 05/27/2025 1 07/28/2024 Overview (05/27/2025): last seizure years ago r/t marijuana use Concussion with less than 1 hour loss of consciousness 02/10/2023 02/10/2023 Acute exacerbation of chroni c obstructive airways disease ([facility]/HCC) 02/10/2023 02/10/2023 Severe chronic obstructive p ulmonary disease (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) 08/25/2022 12/30/2024 Hypercholesterolemia 08/25/2022 023 Impaired fasting glucose 12/09/2014 Encounters Date Type Department Care Team Description 05/28/2025 9:00 AM EST Office Visit [facility] [address] [place] [phone] Ciara Garcia MD Metabolic dysfunction-associated steatotic liver disease (MASLD) (Primary Dx); Type 2 diabetes mellitus with hyperglycemia, without long-term current use of insulin (HCC); SUNNY on CPAP; Chronic obstructive pulmonary disease, unspecified COPD type (CMS/HCC) (HCC); Tobacco dependence syndrome; Localized swelling of both lower legs; Diastolic dysfunction 05/28/2025 Travel 05/27/2025 Telephone [facility] [address] [place] [phone] Ciara Garcia MD Chart Prep 05/21/2025 Patient Outreach [address] [address] Ciara Garcia MD Pre-visit Planning ([facility] screening completed on 09/19/24 ) 05/19/[address] [address] Ciara Garcia MD Tobacco dependence syndrome; Cervicalgia 05/08/2025 10:00 AM EDT Clinical Support [address] [address] Jasmina Coronado RN Long-term current use of opiate analgesic (Primary Dx) 05/08/[address] [address] Jasmina Coronado, RN LE Edema, Lasix, Blood Pressure, Ultrasound 05/08/2025 Travel 04/30/[address] [address] Ciara Garcia MD Other chronic pain 04/29/2025 3:00 PM EDT Office Visit [facility] [address] [place] [phone] Thiago Calvert MD Rash (Primary Dx); Localized swelling of both lower legs; Chronic diastolic (congestive) heart failure (HCC); Diastolic dysfunction; Primary hypertension; Elevated LFTs; Urinary frequency 04/29/2025 Travel 04/29/[address] [address] Ciara Garcia MD Nurse Triage 04/09/[address] [address] Ciara Garcia MD Chronic low back pain with bilateral sciatica, unspecified back pain laterality 04/03/2025 1:40 PM EDT Office Visit [facility] [address] [place] [phone] Missy Gonzalez MD Hyperlipidemia, unspecified hyperlipidemia type (Primary Dx); Localized swelling of both lower legs 04/02/[address] [address] Ciara Garcia MD Other chronic pain 03/25/2025 10:20 AM EDT Office Visit [facility] [address] [place] [phone] Missy Gonzalez MD Localized swelling of both lower legs (Primary Dx); Type 2 diabetes mellitus without complication, without long-term current use of insulin (CMS/HCC) 03/25/2025 Results Follow-Up [address] [address] Ciara Garcia MD Lipid Panel with Reflex to Direct LDL 03/25/2025 Orders Only [address] [address] Ciara Garcia MD Hyperlipidemia, unspecified hyperlipidemia type (Primary Dx) 03/25/2025 Results Follow-Up [address] [address] Audrey Roblero ANP Urinalysis Complete, Albumin, Random Urine W/Creatinine 03/25/2025 Orders Only [address] [address] Ciara Garcia MD 03/25/2025 Travel 03/25/[address] [address] Ciara Garcia MD Nurse Triage 03/07/2025 Refill [facility] [address], [place] [phone] Ciara Garcia MD Cervicalgia 03/06/2025 Orders Only [address] [address] Ciara Garcia MD Type 2 diabetes mellitus without complication, without long-term current use of insulin (CMS/HCC) (Primary Dx) 03/06/2025 Travel 03/05/2025 Refill [facility] [address] [place] [address] Ciara Garcia MD Other chronic pain 03/05/2025 Telephone [facility] [address] [place] [address] Ciara Garcia MD chart prep 03/04/2025 Refill [facility] [address] [place] [address] Ciara Garcia MD Tobacco dependence syndrome from Last 3 Months Immunizations Immunization Administration Dates Next Due Hep B, adult 01/07/2008,08/02/2007,06/22/2007 Influenza injectable quadriv alent IIV4 with preservative 05/03/2017 Influenza injectable quadriv alent preservative free 05/15/2023,05/04/2022,05/09/2021,04/23,04/20/2020,06/03/2019,07/19/2018 ,06/24/2016 Influenza, High Dose Seasona l, Preservative Free 06/21/2024 Influenza, IIV3, injectable 04/21/2014, 1 Influenza, Split (incl. mare fied surface antigen) 04/23/2014,06/12/2013 Jammie SARS-CoV-2 Vaccination 12/28/2017 Pfizer Covid-19 Vaccine [...] Mass Index 36.71 05/28/2025 9:03 AM EST Plan of Treatment Upcoming Encounters Date Type Department Care Team (Late st Contact Info) Description 06/26/2025 2:00 PM EST Office Visit [facility] [address] [place] [address] Haydeemarcy Gabriela, OD [address] [place] [address] 08/11/2025 10:30 AM EST Clinical Support [facility] [address] [place] [address] Jasmina Coronado, RN Health Maintenance Due Date Last Done Comments CT Colonography 1960 Colonoscopy 1960 Colorectal Cancer Screening 1960 FIT DNA/Cologuard 1958 FIT 1960 FOBT 1960 Sigmoidoscopy 1960 HIB Vaccines (1 of 1 - Risk 1-dose series) 02/06/1960 Meningococcal Vaccine (1 - Risk 2-dose series) 1960 Meningococcal B Vaccine (1 of 4 - Increased Risk) 1968 Hepatitis A Vaccines (1 of 2 - Risk 2-dose series) 1977 COVID-19 Vaccine ( season) 2025 06/21/2024, 06/12/2023, 05/04/2022, Additional history exists Influenza Vaccine (#1) 2025 , 05/15/2023, 05/04/2022, Additional history exists Eye Exam 06/12/2025 06/12/2023, 05/18, 06/12/2023, Additional history exists Diabetes: Hemoglobin A1C 08/28/2025 025, 12/30/2024, 09/04/2024, Additional history exists Alcohol/Substance Use Screening 08/30/2025 08/30/2024 SDOH Screening 09/19/2025 09/19/2024 Diabetes: Foot Exam 10/04/2025 10/04/2024, Lung Cancer Screening 02/05/2026 02/05/2025 Depression Screening 03/06/2026 03/06/2025, 03/06/20 Diabetes: Urine Protein Screening 03/25/2026 03/25/2025, 03/25/2025, 06/05/2023 Lipid Panel 03/25/2026 03/25/2025, 05/18, 10/07/2020 Tobacco Screening 05/28/2026 05/28/2025 DTaP/Tdap/Td Vaccines (3 - Td or Tdap) 12/29/2027 12/28/2017, 06/12/2013, 06/28/2005 Hepatitis B Vaccines Completed 01/07/2008, 08/02/2007, 06/22/2007 RSV Patients and Patients Aged 60 years or older Completed 07/20/2023 Zoster Vaccines Completed 09/21/2023, 07/20/2023 Pneumococcal Vaccine: 50+ Years Completed 06/21/2024, 11/04/2010 Hepatitis C Screening Completed 04/29/2025 , 12/19/2023, 10/07/2020, Additional history exists HPV Vaccines Aged Out No longer eligi [...] on patient's age to complete this topic Goals Goal Patient Goal Type Associated Problems [...] blood pressure task No Ciara Garcia MD Procedures Procedure Name Priority Date/Time Associated Diagnosis Comments POCT GLYCATED HEMOGLOBIN, TOTAL Routine 05/28/2025 9:06 AM EST Type 2 diabetes mellitus with hyperglycemia, without long-term current use of insulin (HCC) POCT GLUCOSE Routine 05/28/2025 9:06 AM EST Type 2 diabetes mellitus with hyperglycemia, without long-term current use of insulin (HCC) VASC US LOWER EXTREMITY VENOUS DUPLEX BILATERAL [...] SCREENING Routine 02/05/2025 9 :07 AM EDT from Last 3 Months or Most Recently Relevant to Health Maintenance Results * (ABNORMAL) POCT Hgb A1c (05/28/2025 [...] Media Lot # [id number] Lot# Expiration Date Blood Capillary blood specimen / Unknown 05/28/2025 9:06 AM EST us Ciara Celaya MD POINT OF CARE TEST EN TER/EDIT ORDERABLES Final Result * Vascular US lower extremity venous duplex bilateral (05/08/2025 11:21 AM EDT) 05/08/2025 11:2 1 AM EDT Narrative [facility] - 05/08/2025 11:40 AM EDT [place] [address] Ultrasound Report Signed Patient: Efraín Bravo Jr MR#: [id number] : 1960 Acct:[id number] Age/Sex: 64 / M ADM Date: 05/08/25 Loc: . Attending Dr: Thiago Sterling MD Ordering Physician: Thiago Sterling MD Date of Service: 05/08/25 Procedure(s): US venous duplex LE Accession Number(s): [id number] cc: Ciara Garcia MD; Thiago Sterling MD [...] 05/08/25 1137 DD/ 1121 TD/TT: 05/08/25 1129 Animal Husbandry Worker: Procedure Note Donotuseinterpreter, Image - 05/08/2025 [place] [address] Ultrasound Report Signed Patient: Efraín Bravo [facility]#: [id number] : 9Acct:[id number] Age/Sex: 64 / MADM Date: 05/08/25 Loc: HO.US Attending Dr: Thiago Sterling MD Ordering Physician: Thiago Sterling MD Date of Service: 05/08/25 Procedure(s): US venous duplex LE BI Accession Number(s): [id number] cc: Ciara Garcia MD; Thiago Sterling MD [...] 05/08/25 1137 DD/ 1121 TD/TT: 05/08/25 1129 Animal Husbandry Worker: us Thiago Mcdaniel MD CV VASCULAR PROCEDURE S Edited Result - Final [facility] [address] [place] [phone] * (ABNORMAL) POCT HERBER-14 Urine Drug Screen [...] Negative ng/mL Oxycodone Screen, Urine Positive(A) Negative 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 04/22/26 Internal Pass Control x us Ciara Celaya MD POINT OF CARE TEST EN TER/EDIT ORDERABLES Final Result * (ABNORMAL) Urinalysis, Complete, with Reflex to Culture (04/29/2025 3:36 PM EDT) Color Urine Yellow [facility] Appearance Urine Clear [facility] PH 5.5 5.0 - 9.0 [facility] Glucose Urine UA Negative Negative mg/dL [facility] Urine Blood Negative Negative [facility] Specific [place] - Urine 1.025 1.005 - 1.025 [facility] Urine Protein 30 (1+)(A) Neg-Trace mg/dL [facility] Urine Ketones Negative Negative mg/dL [facility] Nitrite Urine Negative Negative [facility] Leukocyte Esterase Urine Negative Negative [facility] RBC Urine 0-2 0 - 2 /HPF [facility] Urine WBC 0-5 0 - 5 /HPF [facility] Urine Squamous Epithelial Cell 0-2 0 - 2 /HPF [facility] Urine Bacteria None Seen None Seen [facility] Hyaline Casts, Urine 0-2 0 - 2 /LPF [facility] Urine 04/29/2025 3:36 PM EDT 04/29/2025 4:05 PM EDT Narrative [facility] - 04/29/2025 4:35 PM EDT Urine, Clean Catch us Thiago Mcdaniel MD LAB URINE ORDERABLES Final Result [facility] [address] [place] [phone] * (ABNORMAL) CBC auto differential (04/29/2025 3:36 PM EDT) Only the most recent of2 resultswithin the time period is included. White Blood Count 12.4(H) 4.8 - 10.8 X10*3/uL [facility] Red Blood Count 4.78 4.60 - 5.80 X10*6/uL [facility] Hemoglobin 14.8 14.0 - 18.0 g/dl [facility] Hematocrit 46.8 42.0 - 52.0 % [facility] Mean Corpuscular Volume 97.9 80.0 - 98.0 fL [facility] Mean Corpuscular Hemoglobin 31.0 27.0 - 33.0 pg [facility] Mean Corpuscular HGB Conc 31.6 31.0 - 36.0 g/dl [facility] Red Cell Distribution Width 13.6 11.0 - 16.0 % [facility] Platelet Count 188 160 - 400 X10*3/uL [facility] Mean Platelet Volume 11.1 9.4 - 12.4 fL [facility] Neutrophils Percent Auto 66.5 45 - 73 % [facility] Imm Gran Pct Auto 0.9(H) 0.0 - 0.4 % [facility] Lymphocytes Percent Auto 19.4(L) 20 - 40 % [facility] Monocytes Percent Auto 6.8 2 - 11 % [facility] Eosinophils Percent Auto 5.4(H) 0 - 4 % [facility] Basophils Percent Auto 1.0 0 - 2 % [facility] NRBC Pct Auto 0.0 0.0 - 0.2 /100WBC [facility] Neutrophils Absolute Auto 8.2 2.0 - 8.3 x10*3/uL [facility] Imm Gran Abs Auto 0.11(H) 0.00 - 0.03 X10*3/uL [facility] Lymphocytes Absolute Auto 2.4 1.2 - 4.9 X10*3/uL [facility] Monocytes Absolute Auto 0.8 0.1 - 1.2 X10*3/uL [facility] Eosinophils Absolute Auto 0.7(H) 0.0 - 0.4 X10*3/uL [facility] Basophils Absolute Auto 0.1 0.0 - 0.2 X10*3/uL [facility] NRBC Abs Auto 0.000 0.0 - 0.012 X10*3/uL [facility] Blood Venous blood specimen / Unknown 04/29/2025 3:36 PM EDT 04/29/2025 4:04 PM EDT us Thiago Mcdaniel MD LAB BLOOD ORDERABLES Final Result [facility] [address] [place] [phone] * Syphilis Screen (04/29/2025 3:35 PM EDT) Syphilis Screen Nonreactive Nonreactive [facility] Blood Venous blood specimen / Unknown 04/29/2025 3:35 PM EDT 04/29/2025 4:04 PM EDT Thiago Mcdaniel MD LAB BLOOD ORDERABLES Final Result Performing Organization Address City/[facility]/ZIP Co de Phone Number [facility] [address] [place] [phone] * TSH with Reflex to Free T4 (04/29/2025 3:35 PM EDT) Only the most recent of2 resultswithin the time period is included. Pathologist [facility] TSH reflex Free T4 1.11 0.32 - 4.0 uIU/mL [facility] Blood Venous blood specimen / Unknown 04/29/2025 3:35 PM EDT 04/29/2025 4:04 PM EDT Thiago Mcdaniel MD LAB BLOOD ORDERABLES Final Result Performing Organization Address City/[facility] Co de Phone Number [facility] [address] [place] [phone] * (ABNORMAL) Comprehensive Metabolic Panel (04/29/2025 3:35 PM EDT) Pathologist [facility] Sodium 146(H) 135 - 145 mmol/L [facility] Potassium 4.7 3.3 - 5.1 mmol/L [facility] Chloride 108 96 - 108 mmol/L [facility] Carbon Dioxide 29 22 - 29 mmol/L [facility] Anion Gap 14 12 - 20 [facility] Urea Nitrogen (BUN) 16 9 - 16 mg/dL [facility] Creatinine, Serum 1.18 0.5 - 1.4 mg/dL [facility] Estimated Glomerular Filt Rate >60 [facility] Comment:Chronic Kidney Disea se: Estimated GFR < 60 mL/min/[id number] Kidney Disease: Estimated GFR < 15 mL/min/1.73m2 Glucose 115 60 - 115 mg/dL [facility] Calcium 9.3 8.4 - 10.2 mg/dL [facility] Bilirubin, Total 0.3 0.0 - 1.0 mg/dL [facility] Aspartate Amino Transferase 49(H) 5 - 37 U/L [facility] Alanine Aminotransferase 60(H) 0 - 40 U/L [facility] Total Protein 6.6 6.5 - 8.0 g/dL [facility] Albumin Level 4.4 3.5 - 5.0 g/dL [facility] Alkaline Phosphatase 125(H) 39 - 117 U/L [facility] Blood Venous blood specimen / Unknown 04/29/2025 3:35 PM EDT 04/29/2025 4:04 PM EDT Thiago Mcdaniel MD LAB BLOOD ORDERABLES Final Result Performing Organization Address [facility]/ZIP Co de Phone Number [facility] [address] [place] [phone] * Hepatitis C Antibody with Reflex to HCV, RNA, Quantitative, Real-Time PCR (04/29/2025 3:30 PM EDT) Hepatitis C Antibody Nonreactive Nonreactive [facility] Comment:Antibodies to HCV no t detected; does not exclude early acuteHCV infection. Blood Venous blood specimen / Unknown 04/29/2025 3:30 PM EDT 04/29/2025 4:04 PM EDT Thiago Mcdaniel MD LAB BLOOD ORDERABLES Final Result [facility] [address] [place] [phone] * (ABNORMAL) Lipid Panel with Reflex to Direct LDL (03/25/2025 10:49 AM EDT) Triglycerides 374(H) <150 mg/dL [facility] Comment:Desirable Triglyceri de: less than 150 mg/dLBorderline High Triglyceride 150-199 mg/dLHigh Triglyceride: 200-499 mg/dLVery High Triglyceride: greater than or equal to 5OO mg/dL Cholesterol 241(H) <200 mg/dL [facility] Comment:Desirable Cholestero l: less than 200 mg/dLBorderline High Cholesterol: 200-239 mg/dLHigh Cholesterol: greater than 239 mg/dL LDL Cholesterol Calculated 106(H) <100 mg/dL [facility] Comment:Desirable LDL: less than 100 mg/dLNear Optimal/Above Optimal LDL: 110- 129 mg/dLBorderline High LDL: 130-159 mg/dLHigh LDL: 160-189 mg/dLVery High LDL: greater than or equal to 190 mg/dL HDL Cholesterol 61 >40 mg/dL [facility] Comment:Desirable HDL: grea ter than 40 mg/dL Note: This HDL assay may give artificially low results in patients with liver disease. 03/25/2025 10:4 9 AM EDT 03/25/2025 11:24 AM EDT us Ciara Celaya MD LAB BLOOD ORDERABLES Final Result [facility] [address] [place] [address] [phone] * (ABNORMAL) Albumin, Random Urine W/Creatinine (03/25/2025 10:49 AM EDT) Only the most recent of2 resultswithin the time period is included. Creatinine, Urine 172.12 mg/dL [facility] Microalbumin Urine 78.0 mg/L [facility] Microalbum Creatinine Ratio Ur 45.3(H) <30 ug/mg cr [facility] Comment:Albumin/Creatinine R atio Reference Ranges: Normal: < 30 ug/mg creatinine Microalbuminuria: 30 - 300 ug/mg creatinineClinical Albuminuria: > 300 ug/mg creatinine Urine 03/25/2025 10:4 9 AM EDT 03/25/2025 12:14 PM EDT Missy Gonzalez MD LAB URINE ORDERABLES Final Result Performing Organization Address [facility] Co de Phone Number [facility] [address] [place] [phone] * Urinalysis Complete (03/25/2025 10:49 AM EDT) Color Urine Yellow [facility] Appearance Urine Clear [facility] PH 5.5 5.0 - 9.0 [facility] Glucose Urine UA Negative Negative mg/dL [facility] Urine Blood Negative Negative [facility] Specific [place] - Urine 1.025 1.005 - 1.025 [facility] Urine Protein Trace Neg-Trace mg/dL [facility] Urine Ketones Negative Negative mg/dL [facility] Nitrite Urine Negative Negative [facility] Leukocyte Esterase Urine Negative Negative [facility] RBC Urine 0-2 0 - 2 /HPF [facility] Urine WBC 0-5 0 - 5 /HPF [facility] Urine Squamous Epithelial Cell 0-2 0 - 2 /HPF [facility] Urine Bacteria None Seen None Seen [facility] Hyaline Casts, Urine 3-5 0 - 2 /LPF [facility] Urine (Urine, Random) 03/25/2025 10:49 AM EDT 03/25/2025 11:17 AM EDT us Audrey RAMIREZ LAB URINE ORDERABLES Final Resul t Performing Organization Address [facility] Co de Phone Number [facility] [address] [place] [phone] * (ABNORMAL) Hepatic Function Panel (03/25/2025 10:49 AM EDT) Bilirubin, Total 0.4 0.0 - 1.0 mg/dL [facility] Bilirubin, Direct 0.1 0.0 - 0.5 mg/dL [facility] Aspartate Amino Transferase 44(H) 5 - 37 U/L [facility] Alanine Aminotransferase 45(H) 0 - 40 U/L [facility] Total Protein 6.7 6.5 - 8.0 g/dL [facility] Albumin Level 4.5 3.5 - 5.0 g/dL [facility] Alkaline Phosphatase 112 39 - 117 U/L [facility] Blood Venous blood specimen / Unknown 03/25/2025 10:49 AM EDT 03/25/2025 11:24 AM EDT Missy Gonzalez MD LAB BLOOD ORDERABLES Final Result [facility] [address] [place] [phone] * (ABNORMAL) Basic Metabolic Panel (03/25/2025 10:49 AM EDT) Sodium 144 135 - 145 mmol/L [facility] Potassium 4.4 3.3 - 5.1 mmol/L [facility] Chloride 107 96 - 108 mmol/L [facility] Carbon Dioxide 29 22 - 29 mmol/L [facility] Anion Gap 12 12 - 20 [facility] Urea Nitrogen (BUN) 20(H) 9 - 16 mg/dL [facility] Creatinine, Serum 1.17 0.5 - 1.4 mg/dL [facility] Estimated Glomerular Filt Rate >60 [facility] Comment:Chronic Kidney Disea se: Estimated GFR < 60 mL/min/1.00l5Liwgqk Kidney Disease: Estimated GFR < 15 mL/min/1.73m2 Glucose 104 60 - 115 mg/dL [facility] Calcium 9.3 8.4 - 10.2 mg/dL [facility] Blood Venous blood specimen / Unknown 03/25/2025 10:49 AM EDT 03/25/2025 11:24 AM EDT us Missy Gonzalez MD LAB BLOOD ORDERABLES Final Result [facility] [address] [place] [phone] * CT Lung Screening Low dose (02/05/2025 9:07 AM EDT) Anatomical Region Laterality Modality Lung Computed Tomogra phy 02/05/2025 9:07 AM EDT Narrative 02/05/2025 9:08 AM EDT [address] [address] [address] Scan Report Signed Patient: Efraín Bravo Jr MR#: [id number] : 1960 Acct:[id number] Age/Sex: 64 / M ADM Date: 02/03/25 Loc: HO.CT Attending Dr: Neena Colunga PA-C Ordering Physician: Neena Colunga PA-C Date of Service: 02/03/25 Procedure(s): CT lung screening Accession Number(s): [id number] cc: Ciara Garcia MD; Neena Colunga PA-C Report Number: [id number]: Total DLP = 77.00 mGy-cm CLINICAL HISTORY: [...] signed by Nicolas Taylor DO in OV> 02/05/2508 DD/ 6 TD/TT: 02/05/25 09 Animal Husbandry Worker: Procedure Note Donotuseinterpreter, Image - 02/05/[address] [address] [address] Scan Report Signed Patient: Efraín Bravo [facility]#: [id number] : 9Acct:[id number] Age/Sex: 64 / MADM Date: 02/03/25 Loc: HO.CT Attending Dr: Neena Colunga PA-C Ordering Physician: Neena Colunga PA-C Date of Service: 02/03/25 Procedure(s): CT lung screening Accession Number(s): [id number] cc: Ciara Garcia MD; Neena Colunga PA-C Report Number: [id number]: Total DLP = 77.00 mGy-cm CLINICAL HISTORY: [...] in OV> 02/05/25907 DD/ 6 TD/TT: 02/05/25906 Animal Husbandry Worker: [facility] External Provider IMG CT PROCEDURES Final Result from Last 3 Months or Most Recently Relevant to Health Maintenance Additional Health Concerns Active Problems Noted Date [...] task 05/28/2025 Weekly blood pressure task 05/28/[address] [place] [place] [address] [place] [phone] [facility] Care Teams Continuous Improvement Facilitator Relationship Specialty Start Date End Date Ciara Garcia MD [address] [place] [phone] PCP - General Family Medicine 06/04/19
--- OUTSIDE RECORDS SUMMARY | 2025-05-28 11:07 | XMS_ITS | Encounter Summary ---
Author Organization [employer] Address [address] [facility] 7t [place] [address] Care Team Providers Care Home Health Aide Caregiver Name Role Phone Ciara Garcia MD Primary Care Provide r Reason for Visit * Reason Comments Med Refill Encounter Details Date Type Department Care Team ([facility] st Contact Info) Description 06/19/2024 Refill [facility] [address] [place] [address] Jason Hatfield MD [address] [place] [address] Tobacco dependence Social History Tobacco Use Types [...] Office Visit [facility] [address] [place], [place] [phone] Gabriela Castañeda, OD [address] [place] [address] 08/11/2025 10:30 AM EST Clinical Support [facility] [address] [place] [address] Jasmina Coronado, MARIBEL documented as of this encounter Visit Diagnoses Diagnosis Tobacco dependence Tobacco use disorder documented in this encounter Additional Health Concerns Assessment Noted Time PHQ-9 Depression Total Score: 0 12/29/19 23 11:51 AM EDT documented as of this encounter Care Teams Home Health Aide Caregiver Relationship Specialty Start Date End Date Ciara Garcia MD [address] [place] [address] PCP - General Family Medicine 06/04/19 documented as of this encounter
--- OUTSIDE RECORDS SUMMARY | 2025-05-28 11:07 | XMS_ITS | Encounter Summary ---
Author Organization [employer] Address [address] [place] [address] 7 [place] [address] Care Team Providers Care Quill Machine Operator Name Role Phone Ciara Garcia MD Primary Care Provide r Reason for Visit * Reason Comments Med Refill Encounter Details Date Type Department Care Team (Late st Contact Info) Description 08/12/2022 Refill [facility] [address] [place] [address] Jeannette Marquez MD [address] [place] [address] Chronic low back pain with bilateral sciatica, [...] Description 06/26/2025 2:00 PM EST Office Visit [facility] [address] [place] [address] Gabriela Castañeda, WALDO [address] [place] [address] 08/11/2025 10:30 AM EST Clinical Support [facility] [address] [place] [address] Jasmina Coronado, RN documented as of this encounter Visit Diagnoses Diagnosis Chronic low back pain with bilateral sciatica, unspecified back pain laterality- Primary documented in this encounter Care Teams Quill Machine Operator Relationship Specialty Start Date End Date Ciara Garcia MD [address] [place] [address] PCP - General Family Medicine 06/04/19 documented as of this encounter
--- OUTSIDE RECORDS SUMMARY | 2025-05-28 11:07 | XMS_ITS | Encounter Summary ---
Author Organization [employer] Address [address] [facility] 7t [place] [address] Care Team Providers Care Lead Medical Technologist Name Role Phone Ciara Garcia MD Primary Care Provide r Reason for Visit * Reason Comments Med Refill Encounter Details Date Type Department Care Team ([facility] st Contact Info) Description 11/26/2024 Refill [facility] [address] [place] [address] Jeannette Marquez MD [address] [place] [address] Tobacco dependence syndrome Social History Tobacco Use [...] Description 06/26/2025 2:00 PM EST Office Visit [facility] [address] [place] [address] Tarka, Gabriela, OD [address] [place] [address] 08/11/2025 10:30 AM EST Clinical Support [facility] [address] [place] [address] Jasmina Coronado, RN documented as of this encounter Visit Diagnoses Diagnosis Tobacco dependence syndrome Tobacco use disorder documented in this encounter Additional Health Concerns Assessment Noted Time PHQ-9 Depression Total Score: 0 09/27/19 25 9:51 AM EDT documented as of this encounter Care Teams Lead Medical Technologist Relationship Specialty Start Date End Date Ciara Garcia MD [address] [place] [address] PCP - General Family Medicine 06/04/19 documented as of this encounter
--- OUTSIDE RECORDS SUMMARY | 2025-05-28 11:08 | XMS_ITS | Encounter Summary ---
Author Organization [employer] Address [address] [facility] 7t [place] [address] Care Team Providers Care Hot Tamale Worker Name Role Phone Ciara Garcia MD Primary Care Provide r Reason for Visit * Reason Comments Med Refill Encounter Details Date Type Department Care Team ([facility] st Contact Info) Description 06/29/2023 Refill [facility] [address] [place] [address] Ciara Garcia MD [address] [place] [address] Tobacco dependence syndrome; Essential hypertension Social History [...] Description 06/26/2025 2:00 PM EST Office Visit [facility] [address] [place], [place] [phone] TarkaGabriela, OD [address] [place] [address] 08/11/2025 10:30 AM EST Clinical Support [facility] [address] [place] [address] Jasmina Coronado, MARIBEL documented as of this encounter Visit Diagnoses Diagnosis Tobacco dependence syndrome Tobacco use disorder Essential hypertension Unspecified essential hypertension documented in this encounter Additional Health Concerns Assessment Noted Time PHQ-9 Depression Total Score: 0 12/29/19 23 11:51 AM EDT documented as of this encounter Care Teams Hot Tamale Worker Relationship Specialty Start Date End Date Ciara Garcia MD [address] [place] [address] PCP - General Family Medicine 06/04/19 documented as of this encounter
--- OUTSIDE RECORDS SUMMARY | 2025-05-28 11:08 | XMS_ITS | Encounter Summary ---
Author Organization [employer] Address [address] [facility] 7t [place] [address] Care Team Providers Care Service Desk Team Lead Name Role Phone Ciara Garcia MD Primary Care Provide r Reason for Visit * Reason Comments Med Refill Encounter Details Date Type Department Care Team ([facility] st Contact Info) Description 06/29/2023 Refill [facility] [address] [place] [address] Jamel Duffy AGNP Chronic low back pain [...] Description 06/26/2025 2:00 PM EST Office Visit [facility] [address] [place] [address] TarkaGabriela, OD [address] [place] [address] 08/11/2025 10:30 AM EST Clinical Support [facility] [address] [place] [address] Jasmina Coronado RN documented as of this encounter Visit Diagnoses Diagnosis Chronic low back pain with bilateral sciatica, unspecified back pain laterality documented in this encounter Additional Health Concerns Assessment Noted Time PHQ-9 Depression Total Score: 0 12/29/19 23 11:51 AM EDT documented as of this encounter Care Teams Service Desk Team Lead Relationship Specialty Start Date End Date Ciara Garcia MD [address] [place] [address] PCP - General Family Medicine 06/04/19 documented as of this encounter
--- OUTSIDE RECORDS SUMMARY | 2025-05-28 11:08 | XMS_ITS | Encounter Summary ---
Author Organization [employer] Address [address] [facility] 7t [place] [address] Care Team Providers Care Resident Services Coordinator Name Role Phone Ciara Garcia MD Primary Care Provide r Reason for Visit * Reason Comments Med Refill Encounter Details Date Type Department Care Team ([facility] st Contact Info) Description 06/29/2023 Refill [facility] [address] [place] [address] Vianney Odom, MARKY [address] [place] [address] Chronic low back pain with bilateral sciatica, [...] Description 06/26/2025 2:00 PM EST Office Visit [facility] [address] [place], [place] [phone] TarkaGabriela, OD [address] [place] [address] 08/11/2025 10:30 AM EST Clinical Support [facility] [address] [place] [address] Jasmina Coronado, MARIBEL documented as of this encounter Visit Diagnoses Diagnosis Chronic low back pain with bilateral sciatica, unspecified back pain laterality documented in this encounter Additional Health Concerns Assessment Noted Time PHQ-9 Depression Total Score: 0 12/29/19 23 11:51 AM EDT documented as of this encounter Care Teams Resident Services Coordinator Relationship Specialty Start Date End Date Ciara Garcia MD [address] [place], [place] [phone] PCP - General Family Medicine 06/04/19 documented as of this encounter
--- OUTSIDE RECORDS SUMMARY | 2025-05-28 11:08 | XMS_ITS | Clinical Summary ---
Author Organization [facility] Address [address] [place] [phone] Phone Care Team Providers Care Medical Social Worker Name Role Phone Ciara Garcia MD [...] night Active cholecalciferol (VITAMIN D-3) 1.25 MG (60948 UT) tablet Take 50,000 Units by mouth [...] Medicaid [place] Medicaid [place] Care Teams Medical Social Worker Relationship Specialty Start Date End Date Ciara Garcia MD [address] [place] [phone] PCP - General Internal Medicine 02/03/21
--- OUTSIDE RECORDS SUMMARY | 2025-05-28 11:08 | XMS_ITS | Encounter Summary ---
Author Organization [employer] Address [address] [place] [address] 7t [place] [address] Care Team Providers Care Shank Maker Name Role Phone Ciara Garcia MD Primary Care Provide r Encounter Details Date Type Department Care Team (Late st Contact Info) Description 04/17/2023 Telephone [facility] [address] [place] [address] Ciara Garcia MD [address] [place] [address] Social History Tobacco Use Types Packs/Day Years [...] Description 06/26/2025 2:00 PM EST Office Visit [facility] [address] [place] [address] Gabriela Castañeda, OD [address] [place] [address] 08/11/2025 10:30 AM EST Clinical Support [facility] [address] [place] [address] Jasmina Coronado, MARIBEL documented as of this encounter Visit Diagnoses Not on filedocumented in this encounter Additional Health Concerns Assessment Noted Time PHQ-9 Depression Total Score: 0 12/29/19 23 11:51 AM EDT documented as of this encounter Care Teams Shank Maker Relationship Specialty Start Date End Date Ciara Garcia MD [address] [place] [address] PCP - General Family Medicine 06/04/19 documented as of this encounter
--- OUTSIDE RECORDS SUMMARY | 2025-05-28 11:08 | XMS_ITS | Encounter Summary ---
Author Organization [employer] Address [address] [place] [address] 7 [place] [address] Care Team Providers Care Market Survey Representative Name Role Phone Ciara Garcia MD Primary Care Provide r Reason for Visit * Reason Onset Date Comments Med Refill 02/16/2023 Encounter Details Date Type Department Care Team ([facility] st Contact Info) Description 02/16/2023 Telephone [facility] [address] [place] [address] Ciara Garcia MD [address] [place] [address] Med Refill Social History Tobacco Use Types [...] Description 06/26/2025 2:00 PM EST Office Visit [facility] [address] [place] [address] Garry Gabriela, OD [address] [place] [address] 08/11/2025 10:30 AM EST Clinical Support [facility] [address] [place] [address] Jasmina Coronado, MARIBEL documented as of this encounter Visit Diagnoses Not on filedocumented in this encounter Additional Health Concerns Assessment Noted Time PHQ-9 Depression Total Score: 0 12/29/19 23 11:51 AM EDT documented as of this encounter Care Teams Market Survey Representative Relationship Specialty Start Date End Date Ciara Garcia MD [address] [place] [address] PCP - General Family Medicine 06/04/19 documented as of this encounter
--- OUTSIDE RECORDS SUMMARY | 2025-05-28 11:08 | XMS_ITS | Encounter Summary ---
Author Organization [employer] Address [address] [place] [address] 7t [place] [address] Care Team Providers Care Correctional Classification Counselor Name Role Phone Ciara Garcia MD Primary Care Provide r Reason for Visit * Reason Onset Date Comments Med Refill 03/16/2023 Encounter Details Date Type Department Care Team ([facility] st Contact Info) Description 03/16/2023 Telephone [facility] [address] [place] [address] Ciara Garcia MD [address] [place] [address] Med Refill Social History Tobacco Use Types [...] MG 12 hr tablet Please sent to [facility]/pharmacy #[id number] - [place], [place] - [address] [place] [address] documented in this encounter Plan of Treatment Upcoming Encounters Date Type Department Care Team (Late st Contact Info) Description 06/26/2025 2:00 PM EST Office Visit [facility] [address] [place] [address] Gabriela Castañeda, OD [address] [place] [address] 08/11/2025 10:30 AM EST Clinical Support [facility] [address] [place], [place] [phone] Jasmina Coronado RN documented as of this encounter Visit Diagnoses Not on filedocumented in this encounter Additional Health Concerns Assessment Noted Time PHQ-9 Depression Total Score: 0 12/29/19 23 11:51 AM EDT documented as of this encounter Care Teams Correctional Classification Counselor Relationship Specialty Start Date End Date Ciara Garcia MD [address] [place] [address] PCP - General Family Medicine 06/04/19 documented as of this encounter
--- OUTSIDE RECORDS SUMMARY | 2025-05-28 11:08 | XMS_ITS | Encounter Summary ---
Author Organization [employer] Address [address] [facility] 7t [place] [address] Care Team Providers Care Scientific Illustrator Name Role Phone Ciara Garcia MD Primary Care Provide r Reason for Visit * Reason Comments Med Refill Encounter Details Date Type Department Care Team ([facility] st Contact Info) Description 09/21/2023 Refill [facility] [address] [place] [address] Ciara Garcia MD [address] [place] [address] Other chronic pain Social History Tobacco Use [...] 06/26/2025 2:00 PM EST Office Visit [facility] [address] [place], [place] [phone] Gabriela Castañeda, OD [address] [place] [address] 08/11/2025 10:30 AM EST Clinical Support [facility] [address] [place] [address] Jasmina Coronado, RN documented as of this encounter Visit Diagnoses Diagnosis Other chronic pain documented in this encounter Additional Health Concerns Assessment Noted Time PHQ-9 Depression Total Score: 0 12/29/19 23 11:51 AM EDT documented as of this encounter Care Teams Scientific Illustrator Relationship Specialty Start Date End Date Ciara Garcia MD [address] [place] [address] PCP - General Family Medicine 06/04/19 documented as of this encounter
[2025-05-28 12:41] LABS: Anion Gap 13 (12-20); Blood Urea Nitrogen 21 mg/dL (9-16); Calcium 9.4 mg/dL (8.4-10.2); Carbon Dioxide 27 mmol/L (22-29); Chloride 106 mmol/L (96-108); Estimated Glomerular Filt Rate > 60; Potassium 5.0 mmol/L (3.3-5.1); Sodium 141 mmol/L (135-145)
[2025-05-28 12:52] LABS: NT Pro B Type Natriuretic Pept 136.7 pg/mL (<300)
== END 2025-05-28 09:46 | disposition home or self-care (01) ==
LOC: HO.HHCL 09:45
PROVIDERS: PCP Internal Medicine; Referring Provider Internal Medicine; Visit Provider Internal Medicine
DX: I51.89 Other ill-defined heart diseases (principal); I50.9 Heart failure, unspecified; R22.43 Localized swelling, mass and lump, lower limb, bilateral; R06.02 Shortness of breath
CPT/HCPCS: 36415; 80048; 83880

== ENCOUNTER → 2025-06-17 08:56 | Outpatient (REF) | payer MEDICARE, SELFPAY ==
--- NOTE | 2025-06-17 08:59 | CA_ITS ---
Transthoracic Echocardiogram Patient (Last, First, Middle): Efraín Bravo S Gender: M Date of : 1960 Age: 64 Procedure Date: 06/17/2025 Procedure Type: Transthoracic Echocardiogram Location: OP Height: 177. cm Weight: 104.33 kg BSA: 2.21 m2 Heart Rate: 69 bpm BP: 90 / [address] Administrator: ZINA Referring MD: Portillo Aguero MD Symptoms: R06.02 - Shortness of breath Study Quality: Fair ECG Rhythm: Sinus Conclusions: - The left ventricular systolic function is hyperdynamic. The visually estimated ejection fraction is >70%. 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 - No obvious valvular pathology seen on this study. - Consider cardiac MRI. Findings Left Ventricle Normal left ventricular cavity size. There is mildly increased left ventricular wall thickness. The left ventricular systolic function is hyperdynamic. The visually estimated ejection fraction is >70%. There is no evidence of regional wall motion abnormalities. Diastolic function is normal for age. Right Ventricle Normal right ventricular cavity size and systolic function. Atria Both atria are normal in size. Aortic Valve There is a normal trileaflet aortic valve. There is no aortic valve stenosis. There is no aortic valve regurgitation. Mitral Valve The mitral valve appears normal. There is no mitral valve regurgitation. There is no mitral valve stenosis. Pulmonic Valve The pulmonic valve is likely normal. Tricuspid Valve There is trace tricuspid valve regurgitation. There is no evidence of pulmonary hypertension. Great Vessels The asc aorta is normal in size. Venous The inferior vena cava was not well visualized. Pericardium/Pleural There is no evidence of pericardial effusion. Prior Study Comparison No significant change compared to prior study dated: 01/24/2022. Recommendations, Care & Conclusions No obvious valvular pathology seen on this study. Measurements 2D Linear Measurements IVSd: 1.17 0.6-0.9/0.6-1.0 cm LVIDd: 5.26 3.9-5.3/4.2-5.9 cm LVIDd Index: 2.38 2.4-3.2/2.2-3.1 cm/m2 LVIDs: 3.16 2.0-3.6 cm LVPWd: 1.26 0.7-1.1 cm LA Diam: 4.00 2.7-3.8/3.0-4.0 cm LAIDs Index: 1.81 1.5-2.3 cm/m2 LV Mass: 321.59 67-162/88-224 g LV Mass Index: 145.52 43-95/49-115 g/m2 LVOT Diam: 2.30 3.0+(-)1.3 cm 2D Systolic Function EF 4C: 66.70 >55% EF 2C: 61.50 >55% EF BiP: 62.00 >55% Mitral Valve MV Pk E: 0.72 MV PK A: 0.81 MV Decel Time: 252.00 E/A: 0.90 E'Lateral: 7.83 E'Medial: 6.96 E/E' Med: 10.40 E/E' Lat: 9.20 PHT: 74.00 MVA PHT: 2.97 Decel Telfair: 2.88 Aortic Valve AoV Pk Gerson: 1.72 AoV Mn Gerson: 1.17 AoV VTI: 0.29 AoV Pk Grad: 12.00 Aov Mn Grad: 6.00 PHILOMENA Cont.VTI: 3.71 LVOT LVOT Pk Gerson: 1.51 LVOT Mn Gerson: 1.03 LVOT VTI: 0.26 LVOT Pk Grad: 9.00 LVOT Mn Grad: 5.00 LVOT Diam: 2.30 LVOT Area: 4.15 Diastolic Function MV Pk E: 0.72 MV Pk A: 0.81 E/A: 0.90 E'Medial: 6.96 E/E' Med: 10.40 E' Laterial: 7.83 E/E' Lat: 9.20 Right Ventricle TAPSE (mm): 32.40 TVS' Gerson: 20.30 Great Vessels Aorta Sinus of Valsalva: 3.40 2.0-3.5 cm Ao Asc: 3.40 2.1-3.4 cm Pulmonary Veins Pulm Vein S/D 1.20 Pulmonary Valve PV Pk Gerson: 1.29 Peak PV Grad: 7.00 Updated in Other Vendor System with Status of Final Portillo Aguero MD electronically signed on 06/18/2025 12:34:16 PM with status of Final
--- OUTSIDE RECORDS SUMMARY | 2025-06-17 09:16 | XMS_ITS | Encounter Summary ---
Author Organization [employer] Address [address]t [place] [address] Care Team Providers Care Subsorter Name Role Phone Ciara Garcia MD Primary Care Provide r Encounter Details Date Type Department Care Team (Late Contact Info) Description 09/02/2022 Orders Only [facility] [address] [place], [place] [phone] Jason Hatfield MD [address] [place] [address] Social History Tobacco Use Types Packs/Day Years [...] Description 06/26/2025 2:00 PM EST Office Visit [facility] OPT[facility] [address] [place] [address] Gabriela Castañeda, OD [address] [place] [address] 08/11/2025 10:30 AM EST Clinical Support [facility] MEDICINE [address] [place] [address] Jasmina Coronado, RN documented as of this encounter Procedures Procedure Name Priority Date/Time Associated Diagnosis Comments ALBUMIN, RANDOM URINE W/CREATININE Routine 06/05/2023 2:50 PM EST documented in this encounter Results * (ABNORMAL) Albumin, Random Urine W/Creatinine (06/05/2023 2:50 PM EST) Creatinine, Urine 301.05 mg/dL [facility] Microalbumin Urine 248.0 mg/L [facility] Microalbum Creatinine Ratio Ur 82.3(H) <30 ug/mg cr [facility] Comment:Albumin/Creatinine R atio Reference Ranges: Normal: < 30 ug/mg creatinine Microalbuminuria: 30 - 300 ug/mg creatinineClinical Albuminuria: > 300 ug/mg creatinine 06/05/2023 2:50 PM EST 06/05/2023 4:05 PM EST us Ciara Celaya MD LAB URINE ORDERABLES Final Result [facility] [address] [place] [address] [phone] documented in this encounter Visit Diagnoses Not on filedocumented in this encounter Care Teams Subsorter Relationship Specialty Start Date End Date Ciara Garcia MD [address] [place] [address] PCP - General Family Medicine 06/04/19 documented as of this encounter
--- OUTSIDE RECORDS SUMMARY | 2025-06-17 09:16 | XMS_ITS | Encounter Summary ---
Author Organization [employer] Address [address] [facility] 7t [place] [address] Care Team Providers Care Exchange Trouble Shooter Name Role Phone Ciara Garcia MD Primary Care Provide r Reason for Visit * Reason Comments Med Refill Encounter Details Date Type Department Care Team ([facility] st Contact Info) Description 06/01/2024 Refill [facility] MEDICINE [address] [place] [address] Ciara Garcia MD [address] [place] [address] Cervicalgia; Tobacco dependence syndrome; Uncomplicated asthma, unspecified [...] 06/26/2025 2:00 PM EST Office Visit [facility] OPTOMETRY [address] [place] [address] TarkaGabriela, OD [address] [place] [address] 08/11/2025 10:30 AM EST Clinical Support [facility] MEDICINE [address] [place] [address] Jasmina Coronado, MARIBEL documented as of this encounter Visit Diagnoses Diagnosis Cervicalgia Tobacco dependence syndrome Tobacco use disorder Uncomplicated asthma, unspecified asthma severity, unspecified whether persistent documented in this encounter Additional Health Concerns Assessment Noted Time PHQ-9 Depression Total Score: 0 12/29/19 23 11:51 AM EDT documented as of this encounter Care Teams Exchange Trouble Shooter Relationship Specialty Start Date End Date Ciara Garcia MD [address] [place] [address] PCP - General Family Medicine 06/04/19 documented as of this encounter
--- OUTSIDE RECORDS SUMMARY | 2025-06-17 09:16 | XMS_ITS | Encounter Summary ---
Author Organization [employer] Address [address] [place] [address] 7t [place] [address] Care Team Providers Care Fence Post Cutter Name Role Phone Ciara Garcia MD Primary Care Provide r Reason for Visit * Reason Comments Med Refill Encounter Details Date Type Department Care Team (Late st Contact Info) Description 12/06/2022 Refill [facility] MED[facility]INE [address] [place] [address] Mary Trejo, MARKY Essential hypertension Social History [...] Visit [facility] OPTOMETRY [address] [place] [address] Gabriela Castañeda, OD [address] [place] [address] 08/11/2025 10:30 AM EST Clinical Support [facility] MEDICINE [address] [place] [address] Jasmina Coronado, MARIBEL documented as of this encounter Visit Diagnoses Diagnosis Essential hypertension Unspecified essential hypertension documented in this encounter Care Teams Fence Post Cutter Relationship Specialty Start Date End Date Ciara Garcia MD [address] [place] [address] PCP - General Family Medicine 06/04/19 documented as of this encounter
--- OUTSIDE RECORDS SUMMARY | 2025-06-17 09:16 | XMS_ITS | Encounter Summary ---
Author Organization [employer] Address [address] [facility] 7t [place] [address] Care Team Providers Care Plaster Block Layer Name Role Phone Ciara Garcia MD Primary Care Provide r Reason for Visit * Reason Comments Med Refill Encounter Details Date Type Department Care Team ([facility] st Contact Info) Description 06/10/2024 Refill [facility] MEDICINE [address] [place] [address] Ciara Garcia MD [address] [place] [address] Essential hypertension Social History Tobacco Use Types [...] Office Visit [facility] OPTOMETRY [address] [place], [place] [phone] Gabriela Castañeda, OD [address] [place] [address] 08/11/2025 10:30 AM EST Clinical Support [facility] MEDICINE [address] [place] [address] Jasmina Coronado, RN documented as of this encounter Visit Diagnoses Diagnosis Essential hypertension Unspecified essential hypertension documented in this encounter Additional Health Concerns Assessment Noted Time PHQ-9 Depression Total Score: 0 12/29/19 23 11:51 AM EDT documented as of this encounter Care Teams Plaster Block Layer Relationship Specialty Start Date End Date Ciara Garcia MD [address] [place] [address] PCP - General Family Medicine 06/04/19 documented as of this encounter
--- OUTSIDE RECORDS SUMMARY | 2025-06-17 09:16 | XMS_ITS | Encounter Summary ---
Author Organization [employer] Address [address] [place] [address] 7 [place] [address] Care Team Providers Care Adolescent Psychiatrist Name Role Phone Ciara Garcia MD Primary Care Provide r Reason for Visit * Reason Onset Date Comments Nurse Triage 01/20/2025 Encounter Details Date Type Department Care Team ([facility] st Contact Info) Description 01/20/2025 Telephone [facility] MED[facility] [address] [place] [address] Ciara Garcia MD [address] [place] [address] Nurse Triage Social History Tobacco Use Types [...] EDT Triage call Pt was seen in [facility] ED 01/17/25 and dx of RUDY and kidney stone was given. Pt reports pain with urination and left lower quadrant abdominal pain and flank pain. Pt is taking cefuroxime [id number] po bid x10 days as prescribed. Pt [...] ED visit on : Date: 01/17/2025 Hospital: [facility] Seen for: Kidney Stones Symptomatic Yes *if yes message should go to Triage Patient advised will forward to team nurse for follow up Contact at [phone] documented in this encounter Plan of Treatment Upcoming Encounters Date Type Department Care Team (Late st Contact Info) Description 06/26/2025 2:00 PM EST Office Visit [facility] OPTOMETRY [address] [place], [place] [phone] Gabriela Castañeda, OD [address] [place] [address] 08/11/2025 10:30 AM EST Clinical Support [facility] [address] [place] [address] Jasmina Coronado, MARIBEL documented as of this encounter Visit Diagnoses Not on filedocumented in this encounter Additional Health Concerns Assessment Noted Time PHQ-9 Depression Total Score: 0 09/27/19 25 9:51 AM EDT documented as of this encounter Care Teams Adolescent Psychiatrist Relationship Specialty Start Date End Date Ciara Garcia MD [address] [place] [address] PCP - General Family Medicine 06/04/19 documented as of this encounter
--- OUTSIDE RECORDS SUMMARY | 2025-06-17 09:16 | XMS_ITS | Encounter Summary ---
Author Organization [employer] Address [address] [facility] 7t [place] [address] Care Team Providers Care Tower Switch Operator Name Role Phone Ciara Garcia MD Primary Care Provide r Reason for Visit * Reason Comments Med Refill Encounter Details Date Type Department Care Team ([facility] st Contact Info) Description 02/26/2024 Refill [facility] MEDICINE [address] [place] [address] Ciara Garcia MD [address] [place] [address] Cervicalgia; Tobacco dependence syndrome; Uncomplicated asthma, unspecified [...] 2:00 PM EST Office Visit [facility] OPTOMETRY [address] [place] [address] TarkaGabriela, OD [address] [place] [address] 08/11/2025 10:30 AM EST Clinical Support [facility] MEDIC[facility] [address] [place] [address] Jasmina Coronado, MARIBEL documented as of this encounter Visit Diagnoses Diagnosis Cervicalgia Tobacco dependence syndrome Tobacco use disorder Uncomplicated asthma, unspecified asthma severity, unspecified whether persistent documented in this encounter Additional Health Concerns Assessment Noted Time PHQ-9 Depression Total Score: 0 12/29/19 23 11:51 AM EDT documented as of this encounter Care Teams Tower Switch Operator Relationship Specialty Start Date End Date Ciara Garcia MD [address] [place] [address] PCP - General Family Medicine 06/04/19 documented as of this encounter
--- OUTSIDE RECORDS SUMMARY | 2025-06-17 09:16 | XMS_ITS | Encounter Summary ---
Author Organization [employer] Address [address] [facility] 7t [place] [address] Care Team Providers Care Interventional Radiology Technologist Name Role Phone Ciara Garcia MD Primary Care Provide r Reason for Visit * Reason Comments Med Refill Encounter Details Date Type Department Care Team ([facility] st Contact Info) Description 06/19/2024 Refill [facility] [address] [place] [address] Jason Hatfield MD [address] [place] [address] Tobacco dependence Social History Tobacco Use Types [...] Description 06/26/2025 2:00 PM EST Office Visit [facility] OPTOMETRY [address] [place], [place] [phone] Gabriela Castañeda, OD [address] [place] [address] 08/11/2025 10:30 AM EST Clinical Support [facility] MED[facility] [address] [place] [address] Jasmina Coronado, MARIBEL documented as of this encounter Visit Diagnoses Diagnosis Tobacco dependence Tobacco use disorder documented in this encounter Additional Health Concerns Assessment Noted Time PHQ-9 Depression Total Score: 0 12/29/19 23 11:51 AM EDT documented as of this encounter Care Teams Interventional Radiology Technologist Relationship Specialty Start Date End Date Ciara Garcia MD [address] [place] [address] PCP - General Family Medicine 06/04/19 documented as of this encounter
--- OUTSIDE RECORDS SUMMARY | 2025-06-17 09:16 | XMS_ITS | Encounter Summary ---
Author Organization [employer] Address [address] [facility] 7t [place] [address] Care Team Providers Care Carbonating Stone Cleaner Name Role Phone Ciara Garcia MD Primary Care Provide r Reason for Visit * Reason Comments Med Refill Encounter Details Date Type Department Care Team ([facility] st Contact Info) Description 05/06/2024 Refill [facility] MEDICINE [address] [place] [address] Ciara Garcia MD [address] [place] [address] Cervicalgia; Tobacco dependence syndrome Social History Tobacco [...] EST Office Visit [facility] OPTOMETRY [address] [place], [place] [phone] Gabriela Castañeda, OD [address] [place] [address] 08/11/2025 10:30 AM EST Clinical Support [facility] [address] [place] [address] Jasmina Coronado RN documented as of this encounter Visit Diagnoses Diagnosis Cervicalgia Tobacco dependence syndrome Tobacco use disorder documented in this encounter Additional Health Concerns Assessment Noted Time PHQ-9 Depression Total Score: 0 12/29/19 23 11:51 AM EDT documented as of this encounter Care Teams Carbonating Stone Cleaner Relationship Specialty Start Date End Date Ciara Garcia MD [address] [place] [address] PCP - General Family Medicine 06/04/19 documented as of this encounter
--- OUTSIDE RECORDS SUMMARY | 2025-06-17 09:17 | XMS_ITS | Encounter Summary ---
Author Organization [employer] Address [address] [place] [address] 7 [place] [address] Care Team Providers Care Screen Making Supervisor Name Role Phone Ciara Garcia MD Primary Care Provide r Reason for Visit * Reason Onset Date Comments Med Refill 02/16/2023 Encounter Details Date Type Department Care Team ([facility] st Contact Info) Description 02/16/2023 Telephone [facility] [address] [place] [address] Ciara Garcia MD [address] [place] [address] Med Refill Social History Tobacco Use Types [...] Description 06/26/2025 2:00 PM EST Office Visit [facility] [address] [place] [address] Garry Gabriela, OD [address] [place] [address] 08/11/2025 10:30 AM EST Clinical Support [facility] [address] [place] [address] Jasmina Coronado, MARIBEL documented as of this encounter Visit Diagnoses Not on filedocumented in this encounter Additional Health Concerns Assessment Noted Time PHQ-9 Depression Total Score: 0 12/29/19 23 11:51 AM EDT documented as of this encounter Care Teams Screen Making Supervisor Relationship Specialty Start Date End Date Ciara Garcia MD [address] [place] [address] PCP - General Family Medicine 06/04/19 documented as of this encounter
--- OUTSIDE RECORDS SUMMARY | 2025-06-17 09:17 | XMS_ITS | Encounter Summary ---
Author Organization [employer] Address [address] [place] [address] [address]t [place] [address] Care Team Providers Care Suppository Molding Machine Operator Name Role Phone Ciara Garcia MD Primary Care Provide r Reason for Visit * Reason Comments Med Refill Encounter Details Date Type Department Care Team ([facility] st Contact Info) Description 12/30/2024 Refill [facility] MEDICINE [address] [place] [address] Jeannette Marquez MD [address] [place] [address] Tobacco dependence syndrome; Chronic low back pain [...] Description 06/26/2025 2:00 PM EST Office Visit [facility] OPTOMETRY [address] [place] [address] Tarka, Gabriela, OD [address] [place] [address] 08/11/2025 10:30 AM EST Clinical Support [facility] MEDICINE [address] [place] [address] Jasmina Coronado, RN documented as of this encounter Visit Diagnoses Diagnosis Tobacco dependence syndrome Tobacco use disorder Chronic low back pain with bilateral sciatica, unspecified back pain laterality documented in this encounter Additional Health Concerns Assessment Noted Time PHQ-9 Depression Total Score: 0 09/27/19 25 9:51 AM EDT documented as of this encounter Care Teams Suppository Molding Machine Operator Relationship Specialty Start Date End Date Ciara Garcia MD [address] [place] [address] PCP - General Family Medicine 06/04/19 documented as of this encounter
--- OUTSIDE RECORDS SUMMARY | 2025-06-17 09:17 | XMS_ITS | Encounter Summary ---
Author Organization [employer] Address [address] [facility] 7t [place] [address] Care Team Providers Care Cryptologic Technician Technical Name Role Phone Ciara Garcia MD Primary Care Provide r Reason for Visit * Reason Comments Med Refill Encounter Details Date Type Department Care Team ([facility] st Contact Info) Description 06/29/2023 Refill [facility] [address] [place] [address] Jamel Duffy AGNP Chronic low back pain [...] Description 06/26/2025 2:00 PM EST Office Visit [facility] OPT[facility] [address] [place] [address] TarkaGabriela, OD [address] [place] [address] 08/11/2025 10:30 AM EST Clinical Support [facility] [address] [place] [address] Jasmina Coronado RN documented as of this encounter Visit Diagnoses Diagnosis Chronic low back pain with bilateral sciatica, unspecified back pain laterality documented in this encounter Additional Health Concerns Assessment Noted Time PHQ-9 Depression Total Score: 0 12/29/19 23 11:51 AM EDT documented as of this encounter Care Teams Cryptologic Technician Technical Relationship Specialty Start Date End Date Ciara Garcia MD [address] [place] [address] PCP - General Family Medicine 06/04/19 documented as of this encounter
--- OUTSIDE RECORDS SUMMARY | 2025-06-17 09:17 | XMS_ITS | Encounter Summary ---
Author Organization [employer] Address [address] [facility] 7t [place] [address] Care Team Providers Care Recycling Specialist Name Role Phone Ciara Garcia MD Primary Care Provide r Reason for Visit * Reason Comments Med Refill Encounter Details Date Type Department Care Team ([facility] st Contact Info) Description 11/26/2024 Refill [facility] MEDICINE [address] [place] [address] Jeannette Marquez MD [address] [place] [address] Tobacco dependence syndrome Social History Tobacco Use [...] EST Office Visit [facility] OPTOMETRY [address] [place] [address] Tarka, Gabriela, OD [address] [place] [address] 08/11/2025 10:30 AM EST Clinical Support [facility] MEDICINE [address] [place] [address] Jasmina Coronado, RN documented as of this encounter Visit Diagnoses Diagnosis Tobacco dependence syndrome Tobacco use disorder documented in this encounter Additional Health Concerns Assessment Noted Time PHQ-9 Depression Total Score: 0 09/27/19 25 9:51 AM EDT documented as of this encounter Care Teams Recycling Specialist Relationship Specialty Start Date End Date Ciara Garcia MD [address] [place] [address] PCP - General Family Medicine 06/04/19 documented as of this encounter
--- OUTSIDE RECORDS SUMMARY | 2025-06-17 09:17 | XMS_ITS | Clinical Summary ---
Author Organization [employer] Address [address] [place] [address] 7[address] [place] [address] Care Team Providers Care Warp Yarn Sorter Name Role Phone Ciara Garcia MD Primary [...] if needed for itching. 30 tablet Active buPROPion SR (Wellbutrin SR) 150 MG 12 hr tabletIndications :Tobacco dependence syndrome TAKE 1 TABLET BY MOUTH TWICE A DAY. DO NOT CRUSH, SPLIT, OR CHEW. 180 tablet Active baclofen (Lioresal) 10 MG tabletIndications :Cervicalgia TAKE 1 TABLET BY MOUTH EVERY 8 HOURS IF NEEDED FOR MUSCLE SPASMS 60 tablet 1 Active Tirzepatide (Mounjaro) 2.5 MG/0.5ML solution auto-injectorIndi cations:Type 2 diabetes mellitus with hyperglycemia, without long-term current use of insulin (HCC) Inject 2.5 mg under the skin 1 (one) time per week. 2 mL 2 06/05/20 25 2:21 PM EST Active Varenicline Tartrate, Starter, (Chantix Starting Month ) 0.5 MG X 11 & 1 MG X 42 tablet therapy packIndications:T obacco dependence syndrome Take 1 tablet by mouth Once per day. 53 each 05/30/20 2:38 PM EST Active furosemide (Lasix) 20 MG tabletIndications :Localized swelling of both lower legs,Diastolic dysfunction Take 1 tablet (20 mg) by mouth Once per day. 30 tablet 05/30/20 25 2:43 PM EST Active oxyCODONE ER (OxyCONTIN) 80 MG 12 hr tabletIndications :Other chronic pain Take 1 tablet (80 mg) by mouth every 8 (eight) hours for 28 days. 84 tablet 05/30/20 25 2:43 PM EST 2024 Active buPROPion SR (Wellbutrin SR) 150 [...] May 02, 2025. 84 tablet 025 2024 Discontinued(R eorder (will not trigger notification to Pharmacy)) Active Problems Problem Noted Date Diagnosed Date Metabolic dysfunction-associ ated steatotic liver disease (MASLD) 05/28/2025 Assessment & Plan (05/28/2025 10:08 AM EST): Extensive counseling about healthy diet done today Martin prescribed today I will repeat an ultrasound after he has been evaluated by life educator Abdominal pain 05/27/2025 BPH associated with nocturia 05/27/2025 Arthritis 05/27/2025 Bronchitis 05/27/2025 Calculus of ureter 05/27/2025 CPAP (continuous positive airway pressure) depen dence 05/27/2025 Current smoker 05/27/2025 Elevated WBC count [...] Plan (05/28/2025 10:04 AM EST): Follow-up with accessibility lift technician Smoking cessation counseling done today I will prescribe for him today Chantix RUDY (acute kidney injury) 05/27/2025 Complex sleep apnea syndrome 05/27/2025 Overview (05/27/2025): PATIENT HAS OBSTRUCTIVE AND CENTRAL SLEEP APNEA. HE NEEDS TO HAVE CPAP TITRATION FOR ASV MODE. HE IS BEING FOLLOWED BY DR. ARENAS . SUNNY on CPAP 05/27/2025 Overview (05/27/2025): KNOWN TO HAVE SLEEP APNEA - he has machine but NO supplies- BEING FOLLOWED BY SLEEP MD. IN [place]. Assessment & Plan (05/28/2025 10:05 AM EST): Continue to follow with sleep medicine Use CPAP every night Martin prescribed hopefully he will lose some weight [...] treatment and normal blood work, referral to steel unloader discussed. Advised to monitor for possible household [...] condition with diabetic autonomic neuropathy, unspecified whether computer terminal operator insulin use 12/30/2024 Assessment & Plan (12/30/2024 [...] 11/22/2024 Severe obesity (BMI 35.0-39.9) with comorbidity (CMS/[facility]) 11/21/2024 Screening for lung cancer 09/26/2024 Allergic [...] EST): Patient is already being followed by life educator, echocardiogram is pending I decided today to [...] Date Diagnosed Date Resolved Date Seizure disorder (CMS/HCC) 05/27/2025 1 07/28/2024 Overview (05/27/2025): last seizure years ago r/t marijuana use Concussion with less than 1 hour loss of consciousness 02/10/2023 02/10/2023 Acute exacerbation of chroni c obstructive airways disease ([facility]/HCC) 02/10/2023 02/10/2023 Severe chronic obstructive p ulmonary disease ([facility]) 02/10/2023 02/10/2023 Type 2 diabetes mellitus 02/10/2023 Hypertensive disorder 02/10/20232022 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[facility]) 08/25/2022 12/30/2024 Hypercholesterolemia 08/25/2022 023 Impaired fasting glucose 12/09/2014 Encounters Date Type Department Care Team Description 06/16/2025 Telephone [facility] [address] [place] [address] Ciara Garcia MD Medication Question 06/05/2025 Telephone [facility] [address] [place] [address] Ciara Garcia MD Prior Authorization (PA: Martin) 05/30/2025 Refill [facility] [address] [place] [address] Ciara Garcia MD Other chronic pain 05/30/2025 Refill [facility] [address] [place] [address] Ciara Garcia MD Other chronic pain 05/28/2025 9:00 AM EST Office Visit [facility] [address] [place] [address] Ciara Garcia MD Metabolic dysfunction-associated steatotic liver disease (MASLD) (Primary Dx); Type 2 diabetes mellitus with hyperglycemia, without long-term current use of insulin (HCC); SUNNY on CPAP; Chronic obstructive pulmonary disease, unspecified COPD type ([facility]) (HCC); Tobacco dependence syndrome; Localized swelling of both lower legs; Diastolic dysfunction 05/28/2025 Orders Only GENERIC EXTERNAL DATA DEPARTMENT Provider, Generic External Data 05/28/2025 Travel 05/27/2025 Telephone [facility] [address] [place] [address] Ciara Garcia MD Chart Prep 05/21/2025 Patient Outreach [address] [address] Ciara Garcia MD Pre-visit Planning ([facility] screening completed on 09/19/24 ) 05/19/[address] [address] Ciara Garcia MD Tobacco dependence syndrome; Cervicalgia 05/08/2025 10:00 AM EDT Clinical Support [address] [address] Jasmina Coronado RN Long-term current use of opiate analgesic (Primary Dx) 05/08/[address] [address] Jasmina Coronado RN LE Edema, Lasix, Blood Pressure, Ultrasound 05/08/2025 Travel 04/30/[address] [address] Ciara Garcia MD Other chronic pain 04/29/2025 3:00 PM EDT Office Visit [facility] [address] [place] [address] Thiago Calvert MD Rash (Primary Dx); Localized swelling of both lower legs; Chronic diastolic (congestive) heart failure (HCC); Diastolic dysfunction; Primary hypertension; Elevated LFTs; Urinary frequency 04/29/2025 Travel 04/29/[address] [address] Ciara Garcia MD Nurse Triage 04/09/[address] [address] Ciara Garcia MD Chronic low back pain with bilateral sciatica, unspecified back pain laterality 04/03/2025 1:40 PM EDT Office Visit [facility] [address] [place] [phone] Missy Gonzalez MD Hyperlipidemia, unspecified hyperlipidemia type (Primary Dx); Localized swelling of both lower legs 04/02/2025 Refill [facility] [address] [place] [address] Ciara Garcia MD Other chronic pain 03/25/2025 10:20 AM EDT Office Visit [facility] [address] [place] [address] Missy Gonzalez MD Localized swelling of both lower legs (Primary Dx); Type 2 diabetes mellitus without complication, without long-term current use of insulin ([facility]) 03/25/2025 Results Follow-Up [facility] [address] [place] [phone] Ciara Garcia MD Lipid Panel with Reflex to Direct LDL 03/25/2025 Orders Only [address] [address] Ciara Garcia MD Hyperlipidemia, unspecified hyperlipidemia type (Primary Dx) 03/25/2025 Results Follow-Up [address] [address] Audrey Roblero ANP Urinalysis Complete, Albumin, Random Urine W/Creatinine 03/25/2025 Orders Only [address] [address] Ciara Garcia MD 03/25/2025 Travel 03/25/[address] [address] Ciara Garcia MD Nurse Triage from Last 3 Months Immunizations Immunization Administration [...] Description 06/26/2025 2:00 PM EST Office Visit [facility] [address] [place] [address] TarkaGabriela, OD [address] [place] [address] 08/11/2025 10:30 AM EST Clinical Support [facility] [address] [place] [address] Jasmina Coronado, RN Health Maintenance Due Date [...] Exam 10/04/2025 10/04/2024, Lung Cancer Screening 02/05/2026 02/05/2025, 021 Depression Screening 03/06/2026 03/06/2025, 03/06/20 25 Diabetes: Urine Protein Screening 03/25/2026 03/25/2025, 03/25/2025, 06/05/2023, Additional history exists Lipid Panel 03/25/2026 03/25/2025, 05/18, 10/07/2020 Tobacco [...] Care Plan Weekly blood pressure task No Tiff Valentin Weekly blood pressure task Care Plan Weekly blood pressure task No Tiff Valentin Weekly blood pressure task Care Plan Weekly blood pressure task No Montse Ruvalcaba Weekly blood pressure task Care Plan Weekly blood pressure task No Montse Ruvalcaba Weekly blood pressure task Care Plan Weekly blood pressure task No Gerald Craft Weekly blood pressure task Care Plan Weekly blood pressure task No Gerald Craft Procedures Procedure Name Priority Date/Time Associated Diagnosis Comments NT-PROBNP Routine 05/28/2025 10:03 AM EST BASIC METABOLIC PANEL Routine 05/28/2025 10:03 AM EST Localized swelling of both lower legs Diastolic dysfunction POCT GLYCATED HEMOGLOBIN, TOTAL Routine 05/28/2025 9:06 [...] complication, without long-term current use of insulin ([facility]) ALBUMIN, RANDOM URINE W/CREATININE Routine 03/25/2025 10:49 AM EDT Primary hypertension URINALYSIS, COMPLETE Routine 03/25/2025 10:49 AM EDT Bilirubinuria LDCT LUNG SCREENING Routine 02/05/2025 9 :07 AM EDT from Last 3 Months or Most Recently Relevant to Health Maintenance Results * NT-proBNP (05/28/2025 10:03 AM EST) NT-proBNP 136.7 <300 pg/mL [facility] Comment:Reference Range:Age Group (years) NT-proBNP (pg/ml) InterpretationAll <300 Negative: HF unlikelyFor patients presenting to the ED with clinical suspicion ofnew onset or worsening HF, see below:18 to <50 >299.9 to <450.0 Grayzone: [id number] to 75 >299.9 to <900.0 other causes of>75 >299.9 to <1800.0 NT-proBNP [id number] to <50 >449.9 Positive: HF [id number] >899.9>75 >1799.9Note: Elevated NT-proBNP levels should be interpreted inthe context of other clinical information. 05/28/2025 10:0 3 AM EST 05/28/2025 11:49 AM EST us Generic External Data Provider LAB BLOOD ORDERAB LES Final Result Performing Organization Address [facility] Co de Phone Number [facility] [address] [place] [address] [phone] * (ABNORMAL) Basic Metabolic Panel (05/28/2025 10:03 AM EST) Only the most recent of2 resultswithin the time period is included. Sodium 141 135 - 145 mmol/L [facility] Potassium 5.0 3.3 - 5.1 mmol/L [facility] Comment:Slight Hemolysis.Int erpret result with caution. Chloride 106 96 - 108 mmol/L [facility] Carbon Dioxide 27 22 - 29 mmol/L [facility] Anion Gap 13 12 - 20 [facility] Urea Nitrogen (BUN) 21(H) 9 - 16 mg/dL [facility] Creatinine, Serum 1.09 0.5 - 1.4 mg/dL [facility] Estimated Glomerular Filt Rate >60 [facility] Comment:Chronic Kidney Disea se: Estimated GFR < 60 mL/min/1.97n2Xikajy Kidney Disease: Estimated GFR < 15 mL/min/1.73m2 Glucose 153(H) 60 - 115 mg/dL [facility] Calcium 9.4 8.4 - 10.2 mg/dL [facility] Blood Venous blood specimen / Unknown 05/28/2025 10:03 AM EST 05/28/2025 11:49 AM EST us Ciara Celaya MD LAB BLOOD ORDERABLES Final Result Performing Organization Address [facility]/ZIP Co de Phone Number [facility] [address] [place] [address] [phone] * (ABNORMAL) POCT Hgb A1c (05/28/2025 9:06 AM EST) Hemoglobin A1C 8.1(A) 4.0 - 5.7 % QC Media Lot # [id number] Lot# Expiration Date [id number] Blood 05/28/2025 9:06 AM EST Ciara Celaya MD POINT OF CARE TEST EN TER/EDIT ORDERABLES Final Result * (ABNORMAL) POCT Glucose (05/28/2025 9:06 AM EST) Glucose Blood, POC 203(A) 60 - 200 mg/dL [employer] Media Lot # [id number] Lot# Expiration Date 7726 Blood Capillary blood specimen / Unknown 05/28/2025 9:06 AM EST Ciara Celaya MD POINT OF CARE TEST EN TER/EDIT ORDERABLES Final Result * Vascular US lower extremity venous duplex bilateral (05/08/2025 11:21 AM EDT) 05/08/2025 11:2 1 AM EDT Narrative [facility] - 05/08/2025 11:40 AM EDT [place] [address] Ultrasound Report Signed Patient: Efraín Bravo Jr MR#: [id number] : 1960 Acct:[id number] Age/Sex: 64 / M ADM Date: 05/08/25 Loc: HO.US Attending Dr: Thiago Sterling MD Ordering Physician: Thiago Sterling MD Date of Service: 05/08/25 Procedure(s): US venous duplex LE BI Accession Number(s): [id number] cc: Ciara Garcia MD; Thiago Sterling MD [...] 05/08/25 1137 DD/ 1121 TD/TT: 05/08/25 1129 Service And Repair Supervisor: Procedure Note Donotuseinterpreter, Image - 05/08/[address] [address] Ultrasound Report Signed Patient: Efraín Bravo [facility]#: [id number] : 9Acct:[id number] Age/Sex: 64 / MADM Date: 05/08/25 Loc: . 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 04/22/26 Internal Pass Control x us Ciara Celaya MD POINT OF CARE TEST EN TER/EDIT ORDERABLES Final Result * (ABNORMAL) Urinalysis, Complete, with Reflex to Culture (04/29/2025 3:36 PM EDT) Color Urine Yellow [facility] Appearance Urine Clear [facility] PH 5.5 5.0 - 9.0 [facility] Glucose Urine UA Negative Negative mg/dL [facility] Urine Blood Negative Negative [facility] Specific [place] - Urine 1.025 1.005 - 1.025 [facility] Urine Protein 30 (1+)(A) Neg-Trace mg/dL [facility] Urine Ketones Negative Negative mg/dL [facility] Nitrite Urine Negative Negative [facility] Leukocyte Esterase Urine Negative Negative [facility] RBC Urine 0-2 0 - 2 /HPF [facility] Urine WBC 0-5 0 - 5 /HPF [facility] Urine Squamous Epithelial Cell 0-2 0 - 2 /HPF [facility] Urine Bacteria None Seen None Seen [facility] Hyaline Casts, Urine 0-2 0 - 2 /LPF [facility] Urine 04/29/2025 3:36 PM EDT 04/29/2025 4:05 PM EDT Narrative [facility] - 04/29/2025 4:35 PM EDT Urine, Clean Catch us Thiago Mcdaniel MD LAB URINE ORDERABLES Final Result [facility] [address] [place] [phone] * (ABNORMAL) CBC auto differential (04/29/2025 3:36 PM EDT) Only the most recent of2 resultswithin the time period is included. White Blood Count 12.4(H) 4.8 - 10.8 X10*3/uL [facility] Red Blood Count 4.78 4.60 - 5.80 X10*6/uL [facility] Hemoglobin 14.8 14.0 - 18.0 g/dl [facility] Hematocrit 46.8 42.0 - 52.0 % [facility] Mean Corpuscular Volume 97.9 80.0 - 98.0 fL [facility] Mean Corpuscular Hemoglobin 31.0 27.0 - 33.0 pg [facility] Mean Corpuscular HGB Conc 31.6 31.0 - 36.0 g/dl [facility] Red Cell Distribution Width 13.6 11.0 - 16.0 % [facility] Platelet Count 188 160 - 400 X10*3/uL [facility] Mean Platelet Volume 11.1 9.4 - 12.4 fL [facility] Neutrophils Percent Auto 66.5 45 - 73 % [facility] Imm Gran Pct Auto 0.9(H) 0.0 - 0.4 % [facility] Lymphocytes Percent Auto 19.4(L) 20 - 40 % [facility] Monocytes Percent Auto 6.8 2 - 11 % [facility] Eosinophils Percent Auto 5.4(H) 0 - 4 % [facility] Basophils Percent Auto 1.0 0 - 2 % [facility] NRBC Pct Auto 0.0 0.0 - 0.2 /100WBC [facility] Neutrophils Absolute Auto 8.2 2.0 - 8.3 x10*3/uL [facility] Imm Gran Abs Auto 0.11(H) 0.00 - 0.03 X10*3/uL [facility] Lymphocytes Absolute Auto 2.4 1.2 - 4.9 X10*3/uL [facility] Monocytes Absolute Auto 0.8 0.1 - 1.2 X10*3/uL [facility] Eosinophils Absolute Auto 0.7(H) 0.0 - 0.4 X10*3/uL [facility] Basophils Absolute Auto 0.1 0.0 - 0.2 X10*3/uL [facility] NRBC Abs Auto 0.000 0.0 - 0.012 X10*3/uL [facility] Blood Venous blood specimen / Unknown 04/29/2025 3:36 PM EDT 04/29/2025 4:04 PM EDT us Thiago Mcdaniel MD LAB BLOOD ORDERABLES Final Result Performing Organization Address City/[facility]/ZIP Co de Phone Number [facility] [address] [place] [phone] * Syphilis Screen (04/29/2025 3:35 PM EDT) Syphilis Screen Nonreactive Nonreactive [facility] Blood Venous blood specimen / Unknown 04/29/2025 3:35 PM EDT 04/29/2025 4:04 PM EDT Thiago Mcdaniel MD LAB BLOOD ORDERABLES Final Result Performing Organization Address [facility] Co de Phone Number [facility] [address] [place] [phone] * TSH with Reflex to Free T4 (04/29/2025 3:35 PM EDT) Only the most recent of2 resultswithin the time period is included. Pathologist [facility] TSH reflex Free T4 1.11 0.32 - 4.0 uIU/mL [facility] Blood Venous blood specimen / Unknown 04/29/2025 3:35 PM EDT 04/29/2025 4:04 PM EDT us Thiago Mcdaniel MD LAB BLOOD ORDERABLES Final Result Performing Organization Address [facility]/ZIP Co de Phone Number [facility] [address] [place] [phone] [phone] * (ABNORMAL) Comprehensive Metabolic Panel (04/29/2025 3:35 PM EDT) Pathologist [facility] Sodium 146(H) 135 - 145 mmol/L [facility] Potassium 4.7 3.3 - 5.1 mmol/L [facility] Chloride 108 96 - 108 mmol/L [facility] Carbon Dioxide 29 22 - 29 mmol/L [facility] Anion Gap 14 12 - 20 [facility] Urea Nitrogen (BUN) 16 9 - 16 mg/dL [facility] Creatinine, Serum 1.18 0.5 - 1.4 mg/dL [facility] Estimated Glomerular Filt Rate >60 [facility] Comment:Chronic Kidney Disea se: Estimated GFR < 60 mL/min/1.02p9Cacgps Kidney Disease: Estimated GFR < 15 mL/min/1.73m2 Glucose 115 60 - 115 mg/dL [facility] Calcium 9.3 8.4 - 10.2 mg/dL [facility] Bilirubin, Total 0.3 0.0 - 1.0 mg/dL [facility] Aspartate Amino Transferase 49(H) 5 - 37 U/L [facility] Alanine Aminotransferase 60(H) 0 - 40 U/L [facility] Total Protein 6.6 6.5 - 8.0 g/dL [facility] Albumin Level 4.4 3.5 - 5.0 g/dL [facility] Alkaline Phosphatase 125(H) 39 - 117 U/L [facility] Blood Venous blood specimen / Unknown 04/29/2025 3:35 PM EDT 04/29/2025 4:04 PM EDT Thiago Mcdaniel MD LAB BLOOD ORDERABLES Final Result [facility] [address] [place] [phone] * Hepatitis C Antibody with Reflex to HCV, RNA, Quantitative, Real-Time PCR (04/29/2025 3:30 PM EDT) Hepatitis C Antibody Nonreactive Nonreactive [facility] Comment:Antibodies to HCV no t detected; does not exclude early acuteHCV infection. Blood Venous blood specimen / Unknown 04/29/2025 3:30 PM EDT 04/29/2025 4:04 PM EDT Thiago Mcdaniel MD LAB BLOOD ORDERABLES Final Result Performing Organization Address City/[facility]/ZIP Co de Phone Number [facility] [address] [place] [phone] * (ABNORMAL) Lipid Panel with Reflex to Direct LDL (03/25/2025 10:49 AM EDT) Triglycerides 374(H) <150 mg/dL [facility] Comment:Desirable Triglyceri de: less than 150 mg/dLBorderline High Triglyceride 150-199 mg/dLHigh Triglyceride: 200-499 mg/dLVery High Triglyceride: greater than or equal to 5OO mg/dL Cholesterol 241(H) <200 mg/dL [facility] Comment:Desirable Cholestero l: less than 200 mg/dLBorderline High Cholesterol: 200-239 mg/dLHigh Cholesterol: greater than 239 mg/dL LDL Cholesterol Calculated 106(H) <100 mg/dL [facility] Comment:Desirable LDL: less than 100 mg/dLNear Optimal/Above Optimal LDL: 110- 129 mg/dLBorderline High LDL: 130-159 mg/dLHigh LDL: 160-189 mg/dLVery High LDL: greater than or equal to 190 mg/dL HDL Cholesterol 61 >40 mg/dL [facility] Comment:Desirable HDL: great er than 40 mg/dL Note: This HDL assay may give artificially low results in patients with liver disease. 03/25/2025 10:4 9 AM EDT 03/25/2025 11:24 AM EDT us Ciara Celaya MD LAB BLOOD ORDERABLES Final Result Performing Organization Address [facility]/ZIP Co de Phone Number [facility] [address] [place] [phone] [phone] * (ABNORMAL) Albumin, Random Urine W/Creatinine (03/25/2025 10:49 AM EDT) Only the most recent of2 resultswithin the time period is included. Creatinine, Urine 172.12 mg/dL [facility] Microalbumin Urine 78.0 mg/L [facility] Microalbum Creatinine Ratio Ur 45.3(H) <30 ug/mg cr [facility] Comment:Albumin/Creatinine R atio Reference Ranges: Normal: < 30 ug/mg creatinine Microalbuminuria: 30 - 300 ug/mg creatinineClinical Albuminuria: > 300 ug/mg creatinine Urine 03/25/2025 10:4 9 AM EDT 03/25/2025 12:14 PM EDT Missy Gonzalez MD LAB URINE ORDERABLES Final Result Performing Organization Address [facility] de Phone Number [facility] [address] [place] [phone] * Urinalysis Complete (03/25/2025 10:49 AM EDT) Color Urine Yellow [facility] Appearance Urine Clear [facility] PH 5.5 5.0 - 9.0 [facility] Glucose Urine UA Negative Negative mg/dL [facility] Urine Blood Negative Negative [facility] Specific [place] - Urine 1.025 1.005 - 1.025 [facility] Urine Protein Trace Neg-Trace mg/dL [facility] Urine Ketones Negative Negative mg/dL [facility] Nitrite Urine Negative Negative [facility] Leukocyte Esterase Urine Negative Negative [facility] RBC Urine 0-2 0 - 2 /HPF [facility] Urine WBC 0-5 0 - 5 /HPF [facility] Urine Squamous Epithelial Cell 0-2 0 - 2 /HPF [facility] Urine Bacteria None Seen None Seen [facility] Hyaline Casts, Urine 3-5 0 - 2 /LPF [facility] Urine (Urine, Random) 03/25/2025 10:49 AM EDT 03/25/2025 11:17 AM EDT us Audrey RAMIREZ LAB URINE ORDERABLES Final Resul t Performing Organization Address [facility] Co de Phone Number [facility] [address] [place] [phone] * (ABNORMAL) Hepatic Function Panel (03/25/2025 10:49 AM EDT) Bilirubin, Total 0.4 0.0 - 1.0 mg/dL [facility] Bilirubin, Direct 0.1 0.0 - 0.5 mg/dL [facility] Aspartate Amino Transferase 44(H) 5 - 37 U/L [facility] Alanine Aminotransferase 45(H) 0 - 40 U/L [facility] Total Protein 6.7 6.5 - 8.0 g/dL [facility] Albumin Level 4.5 3.5 - 5.0 g/dL [facility] Alkaline Phosphatase 112 39 - 117 U/L [facility] Blood Venous blood specimen / Unknown 03/25/2025 10:49 AM EDT 03/25/2025 11:24 AM EDT Missy Gonzalez MD LAB BLOOD ORDERABLES Final Result [facility] [address] [place] [phone] * CT Lung Screening Low dose (02/05/2025 9:07 AM EDT) Anatomical Region Laterality Modality Lung Computed Tomogra phy 02/05/2025 9:07 AM EDT Narrative 02/05/2025 9:08 AM EDT [address] [address] [address] Scan Report Signed Patient: Efraín Bravo Jr MR#: [id number] : [id number] Acct:[id number] Age/Sex: 64 / M ADM Date: 02/03/25 Loc: HO.CT Attending Dr: Neena Colunga PA-C Ordering Physician: Neena Colunga PA-C Date of Service: 02/03/25 Procedure(s): CT lung screening Accession Number(s): [id number] cc: Ciara Garcia MD; Neena Colunga PA-C Report Number: [id number]: Total DLP = 77.00 mGy-cm CLINICAL HISTORY: [...] in OV> 02/05/25907 DD/ 6 TD/TT: 02/05/25906 Service And Repair Supervisor: Procedure Note Donflacoter, Image - 02/05/[address] [place] [address] [address] Scan Report Signed Patient: Efraín Bravo [facility]#: [id number] : 9Acct:[id number] Age/Sex: 64 / MADM Date: 02/03/25 Loc: HO.CT Attending Dr: Neena Colunga PA-C Ordering Physician: Neena Colunga PA-C Date of Service: 02/03/25 Procedure(s): CT lung screening Accession Number(s): [id number] cc: Ciara Garcia MD; Neena Colunga PA-C Report Number: [id number]: Total DLP = 77.00 mGy-cm CLINICAL HISTORY: [...] in OV> 02/05/25907 DD/ 6 TD/TT: 02/05/25906 Service And Repair Supervisor: [facility] External Provider IMG CT PROCEDURES Final [...] task 05/28/2025 Weekly blood pressure task 05/28/2025 Weekly blood pressure task 05/30/2025 Weekly blood pressure task 05/30/2025 Weekly blood pressure task 06/05/2025 Weekly blood pressure task 06/05/2025 Weekly blood pressure task 06/16/2025 Weekly blood pressure task 06/16/[address] [place] [phone] [facility] Care Teams Warp Yarn Sorter Relationship Specialty Start Date End Date Ciara Garcia MD [address] [place] [address] PCP - General Family Medicine 06/04/19
--- OUTSIDE RECORDS SUMMARY | 2025-06-17 09:17 | XMS_ITS | Encounter Summary ---
Author Organization [employer] Address [address] [facility] 7 [place] [address] Care Team Providers Care Manager Bank Name Role Phone Ciara Garcia MD Primary Care Provide r Reason for Visit * Reason Comments Med Refill Encounter Details Date Type Department Care Team ([facility] st Contact Info) Description 09/21/2023 Refill [facility] MEDICINE [address] [place] [address] Ciara Garcia MD 230 [place] [address] Other chronic pain Social History Tobacco Use [...] Description 06/26/2025 2:00 PM EST Office Visit [facility] OPTOM[facility] [address] [place], [place] [phone] Gabriela Castañeda, OD [address] [place] [address] 08/11/2025 10:30 AM EST Clinical Support [facility] MEDICINE [address] [place] [address] Jasmina Coronado, RN documented as of this encounter Visit Diagnoses Diagnosis Other chronic pain documented in this encounter Additional Health Concerns Assessment Noted Time PHQ-9 Depression Total Score: 0 12/29/19 23 11:51 AM EDT documented as of this encounter Care Teams Manager Bank Relationship Specialty Start Date End Date Ciara Garcia MD 230 [place] [address] PCP - General Family Medicine 06/04/19 documented as of this encounter
--- OUTSIDE RECORDS SUMMARY | 2025-06-17 09:17 | XMS_ITS | Encounter Summary ---
Author Organization [employer] Address [address] [facility] 7t [place] [address] Care Team Providers Care Sales Support Administrator Name Role Phone Ciara Garcia MD Primary Care Provide r Reason for Visit * Reason Onset Date Comments FYI 06/20/2024 Encounter Details Date Type Department Care Team ([facility] st Contact Info) Description 06/20/2024 Telephone [facility] MEDICINE [address] [place] [address] Ciara Garcia MD [address] [place] [address] FYI Social History Tobacco Use Types Packs/Day [...] from spouse requesting call back to inform PLAYGROUND MONITOR nurse that pt has received medication. documented in this encounter Plan of Treatment Upcoming Encounters Date Type Department Care Team (Late st Contact Info) Description 06/26/2025 2:00 PM EST Office Visit [facility] OPTOMETRY [address] [place] [address] Tarka, Gabriela, OD [address] [place] [address] 08/11/2025 10:30 AM EST Clinical Support [facility] MEDICINE [address] [place] [address] Jasmina Coronado, RN documented as of this encounter Visit Diagnoses Not on filedocumented in this encounter Additional Health Concerns Assessment Noted Time PHQ-9 Depression Total Score: 0 12/29/19 23 11:51 AM EDT documented as of this encounter Care Teams Sales Support Administrator Relationship Specialty Start Date End Date Ciara Garcia MD [address] [place] [address] PCP - General Family Medicine 06/04/19 documented as of this encounter
--- OUTSIDE RECORDS SUMMARY | 2025-06-17 09:17 | XMS_ITS | Encounter Summary ---
Author Organization [employer] Address [address] [place] [address] 7t [place] [address] Care Team Providers Care Copy Clerk Name Role Phone Ciara Garcia MD Primary Care Provide r Encounter Details Date Type Department Care Team (Late st Contact Info) Description 06/13/2022 Abstract [facility] MED[facility] [address] [place] [address] ProviderEdwin MD Social History Tobacco Use Types [...] Description 06/26/2025 2:00 PM EST Office Visit [facility] OPTOMET[facility] [address] [place] [address] Gabriela Castañeda OD [address] [place] [address] 08/11/2025 10:30 AM EST Clinical Support [facility] [address] [place] [address] Jasmina Coronado RN documented as of this encounter Visit Diagnoses Not on filedocumented in this encounter Care Teams Copy Clerk Relationship Specialty Start Date End Date Ciara Garcia MD [address] [place] [address] PCP - General Family Medicine 06/04/19 documented as of this encounter
--- OUTSIDE RECORDS SUMMARY | 2025-06-17 09:17 | XMS_ITS | Encounter Summary ---
Author Organization [employer] Address 75 [facility] 7t [place] [address] Care Team Providers Care Front Services Agent Name Role Phone Ciara Garcia MD Primary Care Provide r Reason for Visit * Reason Onset Date Comments Medication Question 06/16/2025 Encounter Details Date Type Department Care Team ([facility] st Contact Info) Description 06/16/2025 Telephone [facility] MEDICINE [address] [place] [address] Ciara Garcia MD [address] [place] [address] Medication Question Social History Tobacco Use Types Packs/Day Years [...] encounter Miscellaneous Notes * Telephone Encounter - Gerald Craft - 06/16/2025 9:27 AM EST TC from pt reports was to get prescribed nocotine GUM . Pt also requesting meds for upset stomach due to taking Zantac documented in this encounter Plan of Treatment Upcoming Encounters Date Type Department Care Team (Late st Contact Info) Description 06/26/2025 2:00 PM EST Office Visit [facility] OPTOMETRY [address] [place] [address] Gabriela Castañeda, OD [address] [place] [address] 08/11/2025 10:30 AM EST Clinical Support [facility] MEDICINE [address] [place] [address] Jasmina Coronado, RN documented as of this encounter Goals Goal Patient Goal Type Associated Problems Recent Progress Patient-Stated? Author Help patients manage their type 2 diabetes Care Plan Help patients manage their type 2 diabetes Jovana Mccurdy MA Weekly blood pressure task [...] Plan Patient has chronic kidney disease No Ciara Garcia MD Patient has chronic kidney disease Care Plan Patient has chronic kidney disease No Ciara aGrcia MD Weekly blood pressure task Care Plan Weekly blood pressure task No Ciara Garcia MD Weekly blood pressure task Care Plan Weekly blood pressure task No Ciara Garcia MD Weekly blood pressure task Care Plan Weekly blood pressure task No Tiff Valentin Weekly blood pressure task Care Plan Weekly blood pressure task No Colon Guerrero, Tiff Weekly blood pressure task Care Plan Weekly blood pressure task No Montse Ruvalcaba Weekly blood pressure task Care Plan Weekly blood pressure task No Montse Ruvalcaba Weekly blood pressure task Care Plan Weekly blood pressure task No Gerald Craft Weekly blood pressure task Care Plan Weekly blood pressure task No Gerald Craft documented as of this encounter Visit Diagnoses [...] task 06/16/2025 Weekly blood pressure task 06/16/2025 Assessment Noted Time PHQ-9 Depression Total Score: 0 03/06/20 25 11:41 AM EDT documented as of this encounter Care Teams Front Services Agent Relationship Specialty Start Date End Date Ciara Garcia MD [address] [place] [address] PCP - General Family Medicine 06/04/19 documented as of this encounter
--- OUTSIDE RECORDS SUMMARY | 2025-06-17 09:17 | XMS_ITS | Encounter Summary ---
Author Organization [employer] Address 75 [facility] 7t [place] [address] Care Team Providers Care Instructional Designer Name Role Phone Ciara Garcia MD Primary Care Provide r Encounter Details Date Type Department Care Team ([facility] st Contact Info) Description 08/06/2024 Telephone [facility] MEDICINE [address] [place] [address] Ciara Garcia MD 230 [place] [address] Social History Tobacco Use Types Packs/Day Years [...] 06/26/2025 2:00 PM EST Office Visit [facility] OPTOMETRY [address] [place], [place] [phone] Gabriela Castañeda, OD [address] [place] [address] 08/11/2025 10:30 AM EST Clinical Support [facility] MEDICINE 230 [place] [address] Jasmina Coronado RN documented as of this encounter Visit Diagnoses Not on filedocumented in this encounter Additional Health Concerns Assessment Noted Time PHQ-9 Depression Total Score: 0 12/29/19 23 11:51 AM EDT documented as of this encounter Care Teams Instructional Designer Relationship Specialty Start Date End Date Ciara Garcia MD 230 [place] [address] PCP - General Family Medicine 06/04/19 documented as of this encounter
--- OUTSIDE RECORDS SUMMARY | 2025-06-17 09:17 | XMS_ITS | Encounter Summary ---
Author Organization [employer] Address 75 [facility] 7t [place] [address] Care Team Providers Care Health Program Analyst Name Role Phone Ciara Garcia MD Primary Care Provide r Reason for Visit * Reason Comments Med Refill Encounter Details Date Type Department Care Team ([facility] st Contact Info) Description 06/29/2023 Refill [facility] MEDICINE 230 [place] [address] Ciara Garcia MD 230 [place] [address] Tobacco dependence syndrome; Essential hypertension Social History [...] Description 06/26/2025 2:00 PM EST Office Visit [facility] OPTOMETRY [address] [place], [place] [phone] TarkaGabriela, OD 267 [place] [address] 08/11/2025 10:30 AM EST Clinical Support [facility] MEDICINE [address] [place] [address] Jasmina Coronado, MARIBEL documented as of this encounter Visit Diagnoses Diagnosis Tobacco dependence syndrome Tobacco use disorder Essential hypertension Unspecified essential hypertension documented in this encounter Additional Health Concerns Assessment Noted Time PHQ-9 Depression Total Score: 0 12/29/19 23 11:51 AM EDT documented as of this encounter Care Teams Health Program Analyst Relationship Specialty Start Date End Date Ciara Garcia MD 230 [place] [address] PCP - General Family Medicine 06/04/19 documented as of this encounter
--- OUTSIDE RECORDS SUMMARY | 2025-06-17 09:17 | XMS_ITS | Encounter Summary ---
Author Organization [employer] Address 75 [facility] 7t [place] [address] Care Team Providers Care Vp Name Role Phone Ciara Garcia MD Primary Care Provide r Reason for Visit * Reason Comments Med Refill Encounter Details Date Type Department Care Team ([facility] st Contact Info) Description 01/28/2025 Refill [facility] MEDICINE [address] [place] [address] Ciara Garcia MD [address] [place] [address] Tobacco dependence syndrome Social History Tobacco Use [...] Description 06/26/2025 2:00 PM EST Office Visit [facility] OPTOMETRY [address] [place] [address] Tarka, Gabriela, OD [address] [place] [address] 08/11/2025 10:30 AM EST Clinical Support [facility] MEDICINE 230 [place] [address] Jasmina Coronado, RN documented as of this encounter Visit Diagnoses Diagnosis Tobacco dependence syndrome Tobacco use disorder documented in this encounter Additional Health Concerns Assessment Noted Time PHQ-9 Depression Total Score: 0 09/27/19 25 9:51 AM EDT documented as of this encounter Care Teams Vp Relationship Specialty Start Date End Date Ciara Garcia MD [address] [place] [address] PCP - General Family Medicine 06/04/19 documented as of this encounter
--- OUTSIDE RECORDS SUMMARY | 2025-06-17 09:17 | XMS_ITS | Encounter Summary ---
Author Organization [employer] Address [address] [place] [address] 7 [place] [address] Care Team Providers Care National Basketball [employer] Scout Name Role Phone Ciara Garcia MD Primary Care Provide r Reason for Visit * Reason Onset Date Comments Nurse Triage 11/20/2024 Encounter Details Date Type Department Care Team ([facility] st Contact Info) Description 11/20/2024 Telephone [facility] MEDICINE 230 [place] [address] Ciara Garcia MD 230 [place] [address] Nurse Triage Social History Tobacco Use Types [...] liquids. Pt is offered to come to [facility] but, requests to be seen in office in the next 2 days. ASK apt with Fitness Coach Caroline 11/22/24 @ 1115am. Pt agrees with [...] acuity questions The caller accepted this outcome. [phone] documented in this encounter Plan of Treatment Upcoming Encounters Date Type Department Care Team (Late st Contact Info) Description 06/26/2025 2:00 PM EST Office Visit [facility] OPTOMETRY [address] [place] [address] Gabriela Castañeda, OD [address] [place] [address] 08/11/2025 10:30 AM EST Clinical Support [facility] MEDICINE 230 [place], [place] [phone] Jasmina Coronado, RN documented as of this encounter Visit Diagnoses Not on filedocumented in this encounter Additional Health Concerns Assessment Noted Time PHQ-9 Depression Total Score: 0 09/27/19 25 9:51 AM EDT documented as of this encounter Care Teams [employer] Scout Relationship Specialty Start Date End Date Ciara Garcia MD [address] [place] [address] PCP - General Family Medicine 06/04/19 documented as of this encounter
--- OUTSIDE RECORDS SUMMARY | 2025-06-17 09:17 | XMS_ITS | Encounter Summary ---
Author Organization [employer] Address [address] [place] [address] 7t [place] [address] Care Team Providers Care Tax Professional Name Role Phone Ciara Garcia MD Primary Care Provide r Reason for Visit * Reason Onset Date Comments Med Refill 03/16/2023 Encounter Details Date Type Department Care Team ([facility] st Contact Info) Description 03/16/2023 Telephone [facility] [address] [place] [address] Ciara Garcia MD [address] [place] [address] Med Refill Social History Tobacco Use Types [...] MG 12 hr tablet Please sent to [facility]/pharmacy #[id number] - [place], [place] - [address] [place] [address] documented in this encounter Plan of Treatment Upcoming Encounters Date Type Department Care Team (Late st Contact Info) Description 06/26/2025 2:00 PM EST Office Visit [facility] OPTOMETRY [address] [place] [address] Gabriela Castañeda, OD [address] [place] [address] 08/11/2025 10:30 AM EST Clinical Support [facility] MEDICINE 230 [place], [place] [phone] Jasmina Coronado RN documented as of this encounter Visit Diagnoses Not on filedocumented in this encounter Additional Health Concerns Assessment Noted Time PHQ-9 Depression Total Score: 0 12/29/19 23 11:51 AM EDT documented as of this encounter Care Teams Tax Professional Relationship Specialty Start Date End Date Ciara Garcia MD [address] [place] [address] PCP - General Family Medicine 06/04/19 documented as of this encounter
--- OUTSIDE RECORDS SUMMARY | 2025-06-17 09:17 | XMS_ITS | Encounter Summary ---
Author Organization [employer] Address [address] [facility] 7t [place] [address] Care Team Providers Care Warranty Administrator Name Role Phone Ciara Garcia MD Primary Care Provide r Reason for Visit * Reason Comments Med Refill Encounter Details Date Type Department Care Team ([facility] st Contact Info) Description 03/04/2025 Refill [facility] MEDICINE [address] [place] [address] Ciara Garcia MD [address] [place] [address] Tobacco dependence syndrome Social History Tobacco Use [...] Description 06/26/2025 2:00 PM EST Office Visit [facility] OPTOMETRY [address] [place] [address] Gabriela Castañeda, OD [address] [place] [address] 08/11/2025 10:30 AM EST Clinical Support [facility] MEDICINE [address] [place] [address] Jasmina Coronado RN documented as of this encounter Visit Diagnoses Diagnosis Tobacco dependence syndrome Tobacco use disorder documented in this encounter Additional Health Concerns Assessment Noted Time PHQ-9 Depression Total Score: 0 09/27/19 25 9:51 AM EDT documented as of this encounter Care Teams Warranty Administrator Relationship Specialty Start Date End Date Ciara Garcia MD [address] [place] [address] PCP - General Family Medicine 06/04/19 documented as of this encounter
--- OUTSIDE RECORDS SUMMARY | 2025-06-17 09:17 | XMS_ITS | Encounter Summary ---
Author Organization [employer] Address [address] [place] [address] 7t [place] [address] Care Team Providers Care Documentation Liaison Name Role Phone Ciara Garcia MD Primary Care Provide r Reason for Visit * Reason Onset Date Comments Nurse Triage 02/09/2023 Encounter Details Date Type Department Care Team ([facility] st Contact Info) Description 02/09/2023 Telephone [facility] MEDICINE [address] [place] [address] Ciara Garcia MD [address] [place] [address] Nurse Triage Social History Tobacco Use Types [...] Pt. Had surgery done on neck at [facility] a few months ago. I do see a report of CR Spine done but that was over 1 year ago on 11/29/21 where there was a metal probe in c3-c4 interspace. Pt. States he had surgery for that the next day at [facility]. I do see surgical notes [...] Description 06/26/2025 2:00 PM EST Office Visit [facility] OPTOMETRY [address] [place] [address] Gabriela Castañeda, OD [address] [place] [address] 08/11/2025 10:30 AM EST Clinical Support [facility] MEDICINE [address] [place] [address] Jasmina Coronado, MARIBEL documented as of this encounter Visit Diagnoses Not on filedocumented in this encounter Additional Health Concerns Assessment Noted Time PHQ-9 Depression Total Score: 0 12/29/19 23 11:51 AM EDT documented as of this encounter Care Teams Documentation Liaison Relationship Specialty Start Date End Date Ciara Garcia MD [address] [place] [address] PCP - General Family Medicine 06/04/19 documented as of this encounter
--- OUTSIDE RECORDS SUMMARY | 2025-06-17 09:17 | XMS_ITS | Encounter Summary ---
Author Organization [employer] Address [address] [place] [address] 7 [place] [address] Care Team Providers Care Marine Painter Name Role Phone Ciara Garcia MD Primary Care Provide r Reason for Visit * Reason Comments Med Refill Encounter Details Date Type Department Care Team (Late st Contact Info) Description 08/12/2022 Refill [facility] MEDICINE [address] [place] [address] Jeannette Marquez MD [address] [place] [address] Chronic low back pain with bilateral sciatica, [...] Office Visit [facility] OPTOMETRY [address] [place] [address] Gabriela Castañeda, WALDO [address] [place] [address] 08/11/2025 10:30 AM EST Clinical Support [facility] MEDICINE [address] [place] [address] Jasmina Coronado, RN documented as of this encounter Visit Diagnoses Diagnosis Chronic low back pain with bilateral sciatica, unspecified back pain laterality- Primary documented in this encounter Care Teams Marine Painter Relationship Specialty Start Date End Date Ciara Garcia MD [address] [place] [address] PCP - General Family Medicine 06/04/19 documented as of this encounter
--- OUTSIDE RECORDS SUMMARY | 2025-06-17 09:17 | XMS_ITS | Encounter Summary ---
Author Organization [employer] Address [address] [place] [address] 7 [place] [address] Care Team Providers Care Careers Counsellor Name Role Phone Ciara Garcia MD Primary Care Provide r Reason for Visit * Reason Onset Date Comments Nurse Triage 01/13/2025 Encounter Details Date Type Department Care Team ([facility] st Contact Info) Description 01/13/2025 Telephone [facility] MEDICINE [address] [place] [address] Ciara Garcia MD [address] [place] [address] Nurse Triage Social History Tobacco Use Types [...] Visit [facility] OPTOMETRY [address] [place], [place] [phone] Gabriela Castañeda, OD 267 [place] [address] 08/11/2025 10:30 AM EST Clinical Support [facility] MEDICINE 230 [place], [place] [phone] Jasmina Coronado RN documented as of this encounter Visit Diagnoses Not on filedocumented in this encounter Additional Health Concerns Assessment Noted Time PHQ-9 Depression Total Score: 0 09/27/19 25 9:51 AM EDT documented as of this encounter Care Teams Careers Counsellor Relationship Specialty Start Date End Date Ciara Garcia MD [address] [place], [place] [phone] PCP - General Family Medicine 06/04/19 documented as of this encounter
--- OUTSIDE RECORDS SUMMARY | 2025-06-17 09:17 | XMS_ITS | Encounter Summary ---
Author Organization [employer] Address 75 [facility] 7t [place] [address] Care Team Providers Care Director Of Sustainability Name Role Phone Ciara Garcia MD Primary Care Provide r Reason for Visit * Reason Comments Med Refill Encounter Details Date Type Department Care Team ([facility] st Contact Info) Description 06/29/[address] [facility] MEDICINE [address] [place] [address] Vianney Odom, MARKY [address] [place] [address] Chronic low back pain with bilateral sciatica, [...] PM EST Office Visit [facility] OPTOMETRY [address] [place], [place] [phone] TarkaGabriela, OD [address] [place] [address] 08/11/2025 10:30 AM EST Clinical Support [facility] MEDICINE [address] [place] [address] Jasmina Coronado, MARIBEL documented as of this encounter Visit Diagnoses Diagnosis Chronic low back pain with bilateral sciatica, unspecified back pain laterality documented in this encounter Additional Health Concerns Assessment Noted Time PHQ-9 Depression Total Score: 0 12/29/19 23 11:51 AM EDT documented as of this encounter Care Teams Director Of Sustainability Relationship Specialty Start Date End Date Ciara Garcia MD 230 [place], [place] [phone] PCP - General Family Medicine 06/04/19 documented as of this encounter
--- OUTSIDE RECORDS SUMMARY | 2025-06-17 09:17 | XMS_ITS | Encounter Summary ---
Author Organization [employer] Address [address] [place] [address] [address] [place] [address] Care Team Providers Care Dispatch Machine Runner Name Role Phone Ciara Garcia MD Primary Care Provide r Encounter Details Date Type Department Care Team (Late st Contact Info) Description 04/17/2023 Telephone [facility] MEDICINE [address] [place] [address] Ciara Garcia MD [address] [place] [address] Social History Tobacco Use Types Packs/Day Years [...] 2:00 PM EST Office Visit [facility] OPTOMETRY [address] [place] [address] Gabriela Castañeda, OD [address] [place] [address] 08/11/2025 10:30 AM EST Clinical Support [facility] [address] [place] [address] Jasmina Coronado, MARIBEL documented as of this encounter Visit Diagnoses Not on filedocumented in this encounter Additional Health Concerns Assessment Noted Time PHQ-9 Depression Total Score: 0 12/29/19 23 11:51 AM EDT documented as of this encounter Care Teams Dispatch Machine Runner Relationship Specialty Start Date End Date Ciara Garcia MD [address] [place] [address] PCP - General Family Medicine 06/04/19 documented as of this encounter
== END ==
LOC: HO.CARD 08:56
PROVIDERS: PCP Internal Medicine; Visit Provider Internal Medicine
DX: R06.02 Shortness of breath (principal)
CPT/HCPCS: 93306

== ENCOUNTER → 2025-06-17 08:59 | Outpatient (BNV) | payer MEDICARE, SELFPAY | PROVIDERS: PCP Internal Medicine; Visit Provider Internal Medicine | DX: I42.2 Other hypertrophic cardiomyopathy (principal); I51.89 Other ill-defined heart diseases | CPT/HCPCS: 93306 ==